=== PATIENT | male | born 1955 | race Caucasian/White ===

== ENCOUNTER 2016-07-27 04:41 | Emergency (ER) | payer OTHER, MEDICARE ==
[2016-07-27] MEDS ORDERED: ASPIRIN 81 MG TABLET, CHEWABLE PO ONE (04:55)
--- NOTE | 2016-07-27 05:08 | ER Document Report ---
ED General - General Chief Complaint: Chest Pain Stated Complaint: CHEST PAIN Time Seen by Provider: 07/27/16 05:06 Mode of Arrival: Medic Information source: Patient - HPI Notes: 60-year-old male history of tobacco and alcohol abuse and cardiac disease and CHF presents emergency department with report depression with suicidal ideation , considering taking an overdose of his medications. The patient has not taken an overdose today, but he reports a prior suicide attempt by overdose in the past. Patient reports he drinks heavily daily. No fever or chills or significant cough. Patient also reports chest pain intermittently, denies it currently but did admit to some chest pain previously. He denies any significant dyspnea or nausea. Patient lives occasionally with his son, sometimes at home alone. Patient reports chronic neck and back pain, but denies any acute injury. No focal numbness or paresthesia. Patient usually ambulates using a rolling walker. Past Medical History - General Information source: Patient - Social History Smoking Status: Current Every Day Smoker Frequency of alcohol use: Heavy Drug Abuse: None Lives with: Alone, Family Family History: Reviewed & Not Pertinent Review of Systems - Review of Systems Notes: REVIEW OF SYSTEMS: CONSTITUTIONAL : Denies fever, chills, or sweats. Denies recent illness. EENT: Denies eye, ear, throat, or mouth pain or symptoms. Denies nasal or sinus congestion or discharge. Denies throat, tongue, or mouth swelling or difficulty swallowing. CARDIOVASCULAR: Denies palpitations or racing or irregular heart beat. Denies ankle edema. Currently denies chest pain. RESPIRATORY: Denies cough, cold, or chest congestion. Denies shortness of breath, difficulty breathing. Patient reports chronic wheezing, and he takes Advair. GASTROINTESTINAL: Denies abdominal pain or distention. Denies nausea, vomiting , or diarrhea. Denies blood in vomitus, stools, or per rectum. Denies black, tarry stools. Denies constipation. GENITOURINARY: Denies difficulty urinating, painful urination, burning, frequency, blood in urine, or discharge. MUSCULOSKELETAL: Denies joint pain or swelling. Patient reports chronic neck and back pain which is unchanged. SKIN: Denies rash, lesions or sores. HEMATOLOGIC : Denies easy bruising or bleeding. LYMPHATIC: Denies swollen, enlarged glands. NEUROLOGICAL: Denies confusion or altered mental status. Denies passing out or loss of consciousness. Denies dizziness or lightheadedness. Denies headache. Denies weakness or paralysis or loss of use of either side. Denies problems with gait or speech. Denies sensory loss, numbness, or tingling. Denies seizures. PSYCHIATRIC: Denies anxiety or stress. Denies homicidal ideation. ALL OTHER SYSTEMS REVIEWED AND NEGATIVE. Dictation was performed using [employer] voice recognition software Physical Exam - Vital signs Vitals: Resp BP Pulse Ox 19 135/70 H 98 07/27/16 06:50 07/27/16 06:50 07/27/16 06:50 - Notes Notes: PHYSICAL EXAMINATION: GENERAL: Well-appearing, well-nourished and in no acute distress. Obvious smell of alcohol and stale tobacco. HEAD: Atraumatic, normocephalic. EYES: Pupils equal round and reactive to light, extraocular movements intact, sclera anicteric, conjunctiva are normal. ENT: Nares patent, oropharynx clear without exudates. Moist mucous membranes. NECK: Normal range of motion, supple without lymphadenopathy LUNGS: Breath sounds clear to auscultation bilaterally and equal. No rales or rhonchi. Wheezes appreciated anteriorly. HEART: Regular rate and rhythm without murmurs ABDOMEN: Soft, nontender, nondistended abdomen. No guarding, no rebound. No masses appreciated. Musculoskeletal: Normal range of motion, no pitting or edema. No cyanosis. Patient is able to stand without assistance. Patient has diffuse pain to his lower back and some to the neck with motion. He states this discomfort is chronic and unchanged. NEUROLOGICAL: Cranial nerves grossly intact. Normal speech, normal gait. Normal sensory, motor exams. No gross ataxia or significant tremor. PSYCH: Normal mood, Somewhat flat affect. Patient acknowledges suicidal thoughts and depressive symptoms related to his home situation and chronic pain. Patient denies any homicidal ideation. He reports no hallucinations. SKIN: Warm, Dry, normal turgor, no rashes or lesions noted. Course - Re-evaluation Re-evalutation: 07/27/16 05:49 Patient's sodium was low at 121. Patient was gently rehydrated with normal saline at 2 50 cc an hour given his history of congestive heart failure. Patient's daughter came in and mentioned that the patient has been showing some signs of dementia, although the patient was savvy enough to convince the [employer] delivery rn to car pick up driver beer to bring by to him, as the family has been preventing him from obtaining alcohol. Patient's daughter reports a history of depression and 2 prior heart attacks and a prior cardiac arrest with dementia and forgetfulness since that time. Patient's daughter has concerned that she may need to obtain a power of banking attorney over the patient's affairs given his inability to appropriately take care of himself. Social work consult was undertaken. Patient was threatening to leave, so an IVC order was obtained, as the patient needs psychiatric evaluation as well as potential admission for hyponatremia alone. Urine culture was obtained. Labs and x-ray results are pending. Care turned over to Dr. Mcdonald at 6:15 AM 07/27/16 07:18 - Vital Signs Vital signs: Temp Pulse Resp BP Pulse Ox 19 135/70 H 98 07/27/16 06:50 07/27/16 06:50 07/27/16 06:50 - Laboratory Result Diagrams: 07/27/16 05:25 07/27/16 05:25 Laboratory results interpreted by me: 07/27/16 07/27/16 07/27/16 05:25 05:25 05:25 WBC 11.3 H RBC 4.10 L Sodium 121.5 L Chloride 87 L Glucose 180 H Creatine Kinase 221 H CK-MB (CK-2) 8.88 H Urine Glucose (UA) Urine Blood Ur Leukocyte Esterase Salicylates < 1.0 L Acetaminophen < 10 L 07/27/16 05:25 WBC RBC Sodium Chloride Glucose Creatine Kinase CK-MB (CK-2) Urine Glucose (UA) 50 H Urine Blood SMALL H Ur Leukocyte Esterase LARGE H Salicylates Acetaminophen - EKG Interpretation by Nh EKG shows normal: Sinus rhythm Additional EKG results interpreted by me: 07/27/16 05:49 EKG as interpreted by il showed normal sinus rhythm heart rate of 97. There is no gross evidence for acute MA or ischemia noted. There is no old EKG available for comparison. Discharge - Discharge Clinical Impression: Hyponatremia, Alcohol abuse Chest pain Qualifiers: Chest pain type: unspecified Qualified Code(s): R07.9 - Chest pain, unspecified Depression Qualifiers: Depression Type: other depression Qualified Code(s): F32.89 - Other specified depressive episodes
[2016-07-27] MEDS ORDERED: IPRATROPIUM/ALBUTEROL 0.5-2.5 MG/3 ML AMPUL NEB ONE (05:41)
[2016-07-27 05:46] LABS: ABSOLUTE BASOPHILS # (AUTO) 0.1 10^3/uL (0.0-0.2); ABSOLUTE EOSINOPHILS # (AUTO) 0.1 10^3/uL (0.0-0.6); ABSOLUTE LYMPHOCYTES (AUTO) 3.6 10^3/uL (0.5-4.7); ABSOLUTE MONOCYTES (AUTO) 0.7 10^3/uL (0.1-1.4); ABSOLUTE NEUT (AUTO) 6.8 10^3/uL (1.7-8.2); BASOPHILS % (AUTO) 0.5 % (0-2); EOSINOPHILS % (AUTO) 0.9 % (0-6); HEMATOCRIT 38.1 % (37.9-51.0); HEMOGLOBIN 13.6 g/dL (13.5-17.0); HGB HCT DIFFERENCE 2.7; LYMPHOCYTES % (AUTO) 31.8 % (13-45); MEAN CORPUSCULAR HEMOGLOBIN 33.1 pg (27.0-33.4); MEAN CORPUSCULAR HGB CONC 35.7 g/dL (32.0-36.0); MEAN CORPUSCULAR VOLUME 93 fl (80-97); MONOCYTES % (AUTO) 6.6 % (3-13); RED CELL DISTRIBUTION WIDTH 13.6 % (11.5-14.0); SEGMENTED NEUTROPHILS % (AUTO) 60.2 % (42-78); WHITE BLOOD COUNT 11.3 10^3/uL (4.0-10.5)
--- NOTE | 2016-07-27 05:56 | RADIOLOGY REPORT (SQ) ---
EXAM DESCRIPTION: CHEST SINGLE VIEW COMPLETED DATE/TIME: 07/27/2016 5:47 am REASON FOR STUDY: CP COMPARISON: None. EXAM PARAMETERS: NUMBER OF VIEWS: One view. TECHNIQUE: Single frontal radiographic view of the chest acquired. RADIATION DOSE: NA LIMITATIONS: None. FINDINGS: LUNGS AND PLEURA: No opacities, masses or pneumothorax. No pleural effusion. MEDIASTINUM AND HILAR STRUCTURES: No masses. Contour normal. HEART AND VASCULAR STRUCTURES: Heart normal in size. Normal vasculature. BONES: No acute findings. HARDWARE: None in the chest. OTHER: No other significant finding. IMPRESSION: NO ACUTE RADIOGRAPHIC FINDING IN THE CHEST. TECHNICAL DOCUMENTATION: JOB ID: [id number]
[2016-07-27 06:00] LABS: ALANINE AMINOTRANSFERASE 38 U/L (21-72); ALBUMIN 3.8 g/dL (3.5-5.0); ALCOHOL 181 mg/dL (NONE DETECTED); ALKALINE PHOSPHATASE 112 U/L (38-126); ANION GAP 10 (5-19); ASPARTATE AMINO TRANSFERASE 28 U/L (17-59); BILIRUBIN,DIRECT 0.3 mg/dL (0.0-0.4); BILIRUBIN,TOTAL 0.6 mg/dL (0.2-1.3); BLOOD UREA NITROGEN 10 mg/dL (7-20); CALCIUM 8.5 mg/dL (8.4-10.2); CARBON DIOXIDE 25 mmol/L (22-30); CHLORIDE 87 mmol/L (98-107); CREATINE KINASE 221 U/L (55-170); GLUCOSE 180 mg/dL (75-110); POTASSIUM 3.8 mmol/L (3.6-5.0); SODIUM 121.5 mmol/L (137-145); TOTAL PROTEIN 6.4 g/dL (6.3-8.2)
[2016-07-27 06:11] LABS: CREATINE KINASE MB 8.88 ng/mL (<4.55); TROPONIN I 0.015 ng/mL
[2016-07-27 06:12] LABS: APPEARANCE,URINE CLOUDY; BILIRUBIN,URINE NEGATIVE (NEGATIVE); GLUCOSE, URINE 50 mg/dL (NEGATIVE); KETONES,URINE NEGATIVE (NEGATIVE); URINE SPECIFIC GRAVITY 1.004
[2016-07-27 06:13] LABS: BACTERIA,URINE TRACE /HPF; LEUKOCYTE ESTERASE,URINE LARGE (NEGATIVE); NITRITE,URINE NEGATIVE (NEGATIVE); PROTEIN,URINE NEGATIVE (NEGATIVE); UROBILINOGEN,URINE NEGATIVE mg/dL (<2.0)
[2016-07-27 06:16] LABS: LIPASE 102.4 U/L (23-300); MAGNESIUM 1.8 mg/dL (1.6-2.3)
[2016-07-27 06:41] LABS: URINE BARBITURATES SCREEN NEGATIVE; URINE METHADONE SCREEN NEGATIVE; URINE OPIATES LOW NEGATIVE; URINE PHENCYCLIDINE SCREEN NEGATIVE
[2016-07-27] MEDS ORDERED: NORMAL SALINE 1000 ML 1,000 ML IV ONE ×2 (06:42→07:21)
--- NOTE | 2016-07-27 09:38 | ER Document Report ---
Doctor's Note Notes: 07/27/16 09:38 Patient is sleeping at this time. The patient's alcohol level will be below the legal limit of 80 about 10:30 AM this morning. Plans are to discharge the patient at that time.
[2016-07-27 10:54] LABS: ALCOHOL 90 mg/dL (NONE DETECTED); ANION GAP 11 (5-19); BLOOD UREA NITROGEN 9 mg/dL (7-20); CALCIUM 8.5 mg/dL (8.4-10.2); CARBON DIOXIDE 25 mmol/L (22-30); CHLORIDE 89 mmol/L (98-107); GLUCOSE 199 mg/dL (75-110); POTASSIUM 3.9 mmol/L (3.6-5.0); SODIUM 125.2 mmol/L (137-145)
--- NOTE | 2016-07-27 11:01 | EKG REPORT ---
SEVERITY:- ABNORMAL ECG - SINUS RHYTHM NONSPECIFIC T ABNORMALITIES, LATERAL LEADS : Confirmed by: Tamiko Leyva MD 27-Jul-2016 11:00:42
--- NOTE | 2016-07-27 11:02 | ER Document Report ---
ED Psych Disorder / Suicide - General Chief Complaint: Chest Pain Stated Complaint: CHEST PAIN Time Seen by Provider: 07/27/16 05:06 Mode of Arrival: Medic - HPI Associated symptoms: Normal affect, Normal mood Notes: pt arrived to ED via EMS. report states that pt was drinking tonight then began making comments about SI. stating that he "did not want to do this anymore." pt states that he has had these thought all his life but has never acted upon them. When asked why he is feeling this way, pt states "my life is just terrible " but does not elaborate further. pt did not state that he had a plan. Patient disclosed that he does not think he is suicidal. When asked if he is having thoughts of suicide he states no. Patient states that last night was the first time in a long time he did think about it. Patient denies plan. He continued disclosed that he does not "know why he drank yesterday." When asked often he drinks patient states "normally I drink a lot more." Patient then stated that he had been sober a long time however was unable to provide the length of time of sobriety. He continued disclosed that "I do not have much choice" in sobriety now. He continued disclosed that he does not need resources because "I know how to quit." Patient disclosed that alcohol does not stay in his system long and he is completely sober now. Patient states he has difficulty opening up to therapists, he has tried in the past but just "clams up." Clinician spoke with [place] Barger from [facility] crisis line; [phone]. He disclosed the patient called the crisis line last night disclosed that he was having nightmares of [place] and hearing shooting. He continued disclosed that he "wanted to " however never identified a plan. [facility] however [facility] [place]. Patient is alert and orientated to person place time and circumstance. Mood is euthymic with congruent affect. Patient denies current suicidal ideation endorses having thoughts last night no plan. Patient denies homicidal ideation. patient denies auditory and visual hallucinations. patient is not demonstrating and behaviours congruent with responding to internal stimuli. No delusions are noted. Thought process are organized and linear. Conversational speech is within normal rate, tone and prosody. Eye contact is well maintained. Intellectual abilities are within average range. Attention and concentration are good. Insight, judgment and impulse control is fair. 291.9 (F10.99) Unspecified Alcohol related Disorder R/O PTSD Impression\\plan: Patient is recommended for rescind of IVC and considered psychiatrically clear for discharge. Patient is no longer under the influence of alcohol. Patient denies current suicidal ideation. Patient identifies suicidal ideation last night with no plan. Patient has no outpatient mental health provider set up, patient [facility] to [facility] to start local care. Dr. Tanner was consulted on the care and management of this patient; attending physician is in agreement with recommendations and disposition. Past Medical History - General Information source: Patient - Social History Smoking Status: Current Every Day Smoker Frequency of alcohol use: Heavy Drug Abuse: None Lives with: Alone, Family Family History: Reviewed & Not Pertinent Physical Exam - Vital signs Vitals: Resp BP Pulse Ox 19 135/70 H 98 07/27/16 06:50 07/27/16 06:50 07/27/16 06:50 Course - Vital Signs Vital signs: Temp Pulse Resp BP Pulse Ox 15 102/67 97 07/27/16 08:01 07/27/16 08:00 07/27/16 07:01 - Laboratory Result Diagrams: 07/27/16 05:25 07/27/16 05:25 Laboratory results interpreted by me: 07/27/16 07/27/16 07/27/16 05:25 05:25 05:25 WBC 11.3 H RBC 4.10 L Sodium 121.5 L Chloride 87 L Glucose 180 H Creatine Kinase 221 H CK-MB (CK-2) 8.88 H Urine Glucose (UA) Urine Blood Ur Leukocyte Esterase Salicylates < 1.0 L Acetaminophen < 10 L 07/27/16 05:25 WBC RBC Sodium Chloride Glucose Creatine Kinase CK-MB (CK-2) Urine Glucose (UA) 50 H Urine Blood SMALL H Ur Leukocyte Esterase LARGE H Salicylates Acetaminophen Discharge - Discharge Clinical Impression: Hyponatremia, Alcohol abuse Chest pain Qualifiers: Chest pain type: unspecified Qualified Code(s): R07.9 - Chest pain, unspecified Depression Qualifiers: Depression Type: other depression Qualified Code(s): F32.89 - Other specified depressive episodes Condition: Stable Disposition: HOME, SELF-CARE Additional Instructions: DEPRESSION: Your evaluation reveals that you have mental depression. While symptoms may be vague, they often include disturbance of sleep, fatigue, loss of appetite , and general loss of interest in life. While depression may be a side effect of drugs, or a reaction to a major change in your life, many cases have no known cause. If depression is acute, and related to a major loss in your life, you can expect it to clear completely with time. If you have been depressed a long time , are prone to repeated bouts of depression or low mood, or have been thinking of suicide, get help. Depression can be treated with anti-depressant medication and counselling. Long-term depression will often take a few weeks to clear, even with appropriate medication. Follow-up care is important. SUICIDAL IDEATION: Suicidal ideation is a common medical term for thoughts about suicide, which may be as detailed as a formulated plan, without the suicidal act itself. Although most people who undergo suicidal ideation do not commit suicide, some go on to make suicide attempts. The range of suicidal ideation varies greatly from fleeting to detailed planning, role playing, and unsuccessful attempts. While thoughts about suicide are common, most people do not carry out serious actions to commit suicide. Based upon your evaluation and discussion with you, we do not believe you are currently at risk to act upon your thoughts of suicide. You have agreed to return to the Emergency Department, at any time , if you feel inclined to act upon your suicidal thoughts. FOLLOW-UP CARE: Please follow up with the [facility] upon discharge to fill out transfer forms to start local care. If you experience worsening or a significant change in your symptoms, notify the physician immediately or return to the Emergency Department at any time for re-evaluation. Referrals: [facility] [Provider Group] - 07/27/16
[2016-07-27 14:35] VITALS: BP 99/60
== END 2016-07-27 13:40 | disposition home or self-care (01) ==
LOC: ER 04:41
DX: E87.1 Hypo-osmolality and hyponatremia (principal); F10.10 Alcohol abuse, uncomplicated; R07.9 Chest pain, unspecified; F32.89 Other specified depressive episodes; F17.200 Nicotine dependence, unspecified, uncomplicated
CPT/HCPCS: 93005; 94640; 99285; 96360; 36415; 87086; 82553; 80307 ×4; 82550; 83690; 83735; 85025; 80048; 80053; 81001; 84484; 83880; 71010; 93010; J7030; J7620

== ENCOUNTER 2016-09-23 22:30 | Emergency (ER) | payer OTHER, MEDICARE ==
[2016-09-23 23:29] LABS: APPEARANCE,URINE CLOUDY; BILIRUBIN,URINE NEGATIVE (NEGATIVE); GLUCOSE, URINE NEGATIVE (NEGATIVE); KETONES,URINE TRACE mg/dL (NEGATIVE); LEUKOCYTE ESTERASE,URINE LARGE (NEGATIVE); NITRITE,URINE NEGATIVE (NEGATIVE); PROTEIN,URINE 30 mg/dL (NEGATIVE); URINE SPECIFIC GRAVITY 1.002; UROBILINOGEN,URINE NEGATIVE mg/dL (<2.0)
[2016-09-23 23:38] LABS: URINE BARBITURATES SCREEN NEGATIVE; URINE METHADONE SCREEN NEGATIVE; URINE OPIATES LOW NEGATIVE; URINE PHENCYCLIDINE SCREEN NEGATIVE
[2016-09-24 00:49] LABS: ABSOLUTE BASOPHILS # (AUTO) 0.1 10^3/uL (0.0-0.2); ABSOLUTE EOSINOPHILS # (AUTO) 0.1 10^3/uL (0.0-0.6); ABSOLUTE LYMPHOCYTES (AUTO) 4.6 10^3/uL (0.5-4.7); ABSOLUTE MONOCYTES (AUTO) 0.6 10^3/uL (0.1-1.4); BASOPHILS % (AUTO) 0.5 % (0-2); EOSINOPHILS % (AUTO) 0.7 % (0-6); HEMOGLOBIN 15.2 g/dL (13.5-17.0); HGB HCT DIFFERENCE 2.6; LYMPHOCYTES % (AUTO) 34.3 % (13-45); MEAN CORPUSCULAR HEMOGLOBIN 33.7 pg (27.0-33.4); MEAN CORPUSCULAR HGB CONC 35.3 g/dL (32.0-36.0); MEAN CORPUSCULAR VOLUME 95 fl (80-97); MONOCYTES % (AUTO) 4.8 % (3-13); RED BLOOD COUNT 4.51 10^6/uL (4.35-5.55); RED CELL DISTRIBUTION WIDTH 13.5 % (11.5-14.0); SEGMENTED NEUTROPHILS % (AUTO) 59.7 % (42-78); WHITE BLOOD COUNT 13.4 10^3/uL (4.0-10.5)
[2016-09-24 01:05] LABS: ALANINE AMINOTRANSFERASE 34 U/L (21-72); ALBUMIN 4.6 g/dL (3.5-5.0); ALCOHOL 199 mg/dL (NONE DETECTED); ALKALINE PHOSPHATASE 145 U/L (38-126); ANION GAP 17 (5-19); ASPARTATE AMINO TRANSFERASE 32 U/L (17-59); BILIRUBIN,DIRECT 0.4 mg/dL (0.0-0.4); BILIRUBIN,TOTAL 0.7 mg/dL (0.2-1.3); BLOOD UREA NITROGEN 6 mg/dL (7-20); CARBON DIOXIDE 17 mmol/L (22-30); CHLORIDE 90 mmol/L (98-107); CREATININE RESULT 0.57 mg/dL (0.52-1.25); GLUCOSE 119 mg/dL (75-110); POTASSIUM 4.7 mmol/L (3.6-5.0); SODIUM 123.7 mmol/L (137-145); TOTAL PROTEIN 7.8 g/dL (6.3-8.2)
--- NOTE | 2016-09-24 01:28 | ER Document Report ---
ED General - General Chief Complaint: Psych Problem Stated Complaint: SUICIDAL IDEATIONS Time Seen by Provider: 09/24/16 01:26 Notes: Patient is a 60-year-old male with a past history of alcoholism, depression, congestive heart failure who apparently refuses to follow for any medical care who presents with his son and daughter after police were dispatched to his home after he apparently [facility]. Patient admits to drinking heavily tonight and states that this often triggers thoughts of wanting to harm himself. At time of my assessment, patient states repeatedly "I just drank too much, that was stupid, I could never hurt myself". He is repeatedly asking to leave and go smoke a cigarette. His children at the bedside states that the patient has never made an attempt to harm himself and are clear that he does not have access to guns or an alternative way to kill himself. They state that he should seek help for detox but are not concerned that he is acutely suicidal. Patient denies any acute medical concerns. TRAVEL OUTSIDE OF THE [place] IN LAST 30 DAYS: No Past Medical History - General Information source: Patient, Relative - Social History Smoking Status: Current Every Day Smoker Frequency of alcohol use: Heavy Drug Abuse: None Lives with: Family Family History: Reviewed & Not Pertinent Patient has suicidal ideation: Yes Patient has homicidal ideation: No Renal/ Medical History: Denies: Hx Peritoneal Dialysis Review of Systems - Review of Systems Notes: Constitutional: Negative for fever. HENT: Negative for sore throat. Eyes: Negative for visual changes. Cardiovascular: Negative for chest pain. Respiratory: Negative for shortness of breath. Gastrointestinal: Negative for abdominal pain, vomiting or diarrhea. Genitourinary: Negative for dysuria. Musculoskeletal: Negative for back pain. Skin: Negative for rash. Neurological: Negative for headaches, weakness or numbness. 10 point ROS negative except as marked above and in HPI. Physical Exam - Vital signs Vitals: Temp Pulse Resp BP Pulse Ox 97.5 F 101 H 16 128/70 H 96 09/23/16 23:45 09/23/16 23:45 09/23/16 23:45 09/23/16 23:45 09/23/16 23:45 Interpretation: Normal Notes: PHYSICAL EXAMINATION: GENERAL: Well-appearing, well-nourished and in no acute distress. HEAD: Atraumatic, normocephalic. EYES: Pupils equal round and reactive to light, extraocular movements intact, sclera anicteric, conjunctiva are normal. ENT: nares patent, oropharynx clear without exudates. Moist mucous membranes. NECK: Normal range of motion, supple without lymphadenopathy LUNGS: Breath sounds clear to auscultation bilaterally and equal. No wheezes rales or rhonchi. HEART: Regular rate and rhythm without murmurs ABDOMEN: Soft, nontender, normoactive bowel sounds. No guarding, no rebound. No masses appreciated. EXTREMITIES: Normal range of motion, no pitting or edema. No cyanosis. Discoloration of the bilateral lower extremity is consistent with venous stasis. NEUROLOGICAL: No focal neurological deficits. Moves all extremities spontaneously and on command. PSYCH: Normal mood, normal affect. SKIN: Warm, Dry, normal turgor, no rashes or lesions noted. Course - Re-evaluation Re-evalutation: 09/24/16 01:27 Patient presents stating that he made a mistake, [facility] that he wanted to hurt himself but he denies this time. He is here with his son and daughter who have not heard anything about today's conversation and states that he frequently does this where he called the [facility] crisis [facility], combative, drunk agitated and makes threats on the phone that resulted in police being sent to the home. At this time, patient is adamantly denying suicidal ideation repeatedly stating "I could never do it I just drank too much and that was stupid". He does not have access to firearms. His son will be staying with him tonight. I did offer to the patient stay in the emergency department and be evaluated by psychiatry in the morning as well as consideration of resources for rehabilitation. The patient I felt this was the safest option. However, based on what patient has told me here as well as with his children say he does not meet involuntary commitment criteria and I cannot force the patient to stay. Patient has elected to go home and states he will try to follow-up as an outpatient. - Vital Signs Vital signs: Temp Pulse Resp BP Pulse Ox 97.7 F 94 20 118/78 97 09/24/16 01:32 09/24/16 01:32 09/24/16 01:32 09/24/16 01:32 09/24/16 01:32 - Laboratory Result Diagrams: 09/24/16 00:36 09/24/16 00:36 Laboratory results interpreted by me: 09/23/16 09/24/16 09/24/16 22:45 00:35 00:36 WBC 13.4 H MCH 33.7 H Sodium Chloride Carbon Dioxide BUN Glucose Alkaline Phosphatase Urine Protein 30 H 30 H Urine Ketones TRACE H TRACE H Urine Blood MODERATE H MODERATE H Ur Leukocyte Esterase LARGE H LARGE H Salicylates Acetaminophen 09/24/16 00:36 WBC MCH Sodium 123.7 L Chloride 90 L Carbon Dioxide 17 L BUN 6 L Glucose 119 H Alkaline Phosphatase 145 H Urine Protein Urine Ketones Urine Blood Ur Leukocyte Esterase Salicylates < 1.0 L Acetaminophen < 10 L Discharge - Discharge Clinical Impression: Passive suicidal ideations Alcohol dependency Qualifiers: Substance use status: unspecified alcohol-induced disorder Qualified Code(s): F10.29 - Alcohol dependence with unspecified alcohol-induced disorder Condition: Good Disposition: HOME, SELF-CARE Additional Instructions: Please return if you have thoughts of wanting to hurt yourself, hurt others, or have any other symptoms that are concerning to you.
[2016-09-24 02:33] VITALS: BP 118/78
[2016-09-24 02:55] LABS: APPEARANCE,URINE SLIGHTLY-CLOUDY; BILIRUBIN,URINE NEGATIVE (NEGATIVE); GLUCOSE, URINE NEGATIVE (NEGATIVE); KETONES,URINE TRACE mg/dL (NEGATIVE); LEUKOCYTE ESTERASE,URINE LARGE (NEGATIVE); NITRITE,URINE NEGATIVE (NEGATIVE); PROTEIN,URINE 30 mg/dL (NEGATIVE); URINE SPECIFIC GRAVITY 1.005; UROBILINOGEN,URINE NEGATIVE mg/dL (<2.0)
[2016-09-24 04:27] LABS: URINE BARBITURATES SCREEN NEGATIVE; URINE METHADONE SCREEN NEGATIVE; URINE OPIATES LOW NEGATIVE; URINE PHENCYCLIDINE SCREEN NEGATIVE
== END 2016-09-24 01:32 | disposition home or self-care (01) ==
LOC: ER 22:30
DX: R45.851 Suicidal ideations (principal); F10.29 Alcohol dependence with unspecified alcohol-induced disorder; F17.210 Nicotine dependence, cigarettes, uncomplicated
CPT/HCPCS: 36415; 80053; 80307; 81001; 85025; 99284

== ENCOUNTER 2016-10-31 23:56 | Emergency (ER) | payer OTHER, MEDICARE ==
[2016-10-31] MEDS ORDERED: ASPIRIN 81 MG TABLET, CHEWABLE PO ONE (23:57)
[2016-11-01 00:29] LABS: HEMATOCRIT 40.9 % (37.9-51.0); HEMOGLOBIN 14.2 g/dL (13.5-17.0); HGB HCT DIFFERENCE 1.7; MEAN CORPUSCULAR HEMOGLOBIN 33.3 pg (27.0-33.4); MEAN CORPUSCULAR HGB CONC 34.6 g/dL (32.0-36.0); MEAN CORPUSCULAR VOLUME 96 fl (80-97); RED BLOOD COUNT 4.26 10^6/uL (4.35-5.55); RED CELL DISTRIBUTION WIDTH 13.8 % (11.5-14.0); WHITE BLOOD COUNT 24.4 10^3/uL (4.0-10.5)
[2016-11-01 00:37] LABS: ALANINE AMINOTRANSFERASE 29 U/L (21-72); ALBUMIN 4.3 g/dL (3.5-5.0); ALKALINE PHOSPHATASE 133 U/L (38-126); ANION GAP 13 (5-19); ASPARTATE AMINO TRANSFERASE 29 U/L (17-59); BILIRUBIN,DIRECT 0.5 mg/dL (0.0-0.4); BLOOD UREA NITROGEN 9 mg/dL (7-20); CALCIUM 9.4 mg/dL (8.4-10.2); CARBON DIOXIDE 29 mmol/L (22-30); CHLORIDE 92 mmol/L (98-107); CREATINE KINASE 115 U/L (55-170); CREATININE RESULT 0.75 mg/dL (0.52-1.25); GLUCOSE 191 mg/dL (75-110); POTASSIUM 3.8 mmol/L (3.6-5.0); SODIUM 133.5 mmol/L (137-145); TOTAL PROTEIN 6.9 g/dL (6.3-8.2)
[2016-11-01 00:47] LABS: BAND NEUTROPHILS % (MANUAL) 1 % (3-5); BASOPHILS % (MANUAL) 0 % (0-2); EOSINOPHILS % (MANUAL) 0 % (0-6); LYMPHOCYTES % (MANUAL) 3 % (13-45); TOTAL CELLS COUNTED 100; TOXIC GRANULATION SLIGHT; TOXIC VACUOLATION PRESENT
[2016-11-01 00:48] LABS: RBC MORPHOLOGY COMMENT NORMO-CYTIC/CHROMIC
[2016-11-01 00:53] LABS: CREATINE KINASE MB 3.29 ng/mL (<4.55)
--- NOTE | 2016-11-01 00:55 | RADIOLOGY REPORT (SQ) ---
EXAM DESCRIPTION: CHEST SINGLE VIEW COMPLETED DATE/TIME: 11/01/2016 12:22 am REASON FOR STUDY: chest pain COMPARISON: 07/27/2016. EXAM PARAMETERS: NUMBER OF VIEWS: One view. TECHNIQUE: Single frontal radiographic view of the chest acquired. RADIATION DOSE: NA LIMITATIONS: None. FINDINGS: LUNGS AND PLEURA: No opacities, masses or pneumothorax. No pleural effusion. Prominent in terstitium. MEDIASTINUM AND HILAR STRUCTURES: No masses. Contour normal. HEART AND VASCULAR STRUCTURES: Heart normal in size. Atherosclerosis. BONES: No acute findings. HARDWARE: None in the chest. OTHER: No other significant finding. IMPRESSION: No acute cardiopulmonary findings. TECHNICAL DOCUMENTATION: JOB ID: [id number]
[2016-11-01 00:58] LABS: APPEARANCE,URINE TURBID; BILIRUBIN,URINE NEGATIVE (NEGATIVE); GLUCOSE, URINE 50 mg/dL (NEGATIVE); KETONES,URINE TRACE mg/dL (NEGATIVE); LEUKOCYTE ESTERASE,URINE LARGE (NEGATIVE); NITRITE,URINE NEGATIVE (NEGATIVE); PROTEIN,URINE 100 mg/dL (NEGATIVE); URINE SPECIFIC GRAVITY 1.008
[2016-11-01 00:59] LABS: TROPONIN I 0.056 ng/mL
[2016-11-01] MEDS ORDERED: CEFTRIAXONE 1 GM/D5W RTU 1 GM/50 ML RTUPB IV ONE (01:34)
[2016-11-01] MEDS ORDERED: NORMAL SALINE 1000 ML 1,000 ML IV ONE ×4 (01:34→07:37)
[2016-11-01] MEDS ORDERED: KETOROLAC TROMETHAMINE INJ/PF 30 MG/1 ML SDV IV ONE (01:36)
--- NOTE | 2016-11-01 01:39 | ER Document Report ---
ED Cardiac - General Chief Complaint: Chest Pain Stated Complaint: CHEST PAIN Time Seen by Provider: 11/01/16 01:03 Notes: Patient is a 60-year-old male with past medical history of type 2 diabetes with insulin dependence, alcoholism, known coronary artery disease history of stent approximately 1 year ago who presents with multiple complaints. His primary concern is dysuria with associated hematuria and bilateral flank pain. Patient also reports that he is felt generally unwell for at least the past several weeks since he developed the symptoms. He does have history of pyelonephritis in the past is required hospitalization. He has not seen his primary care doctor regarding this concern. He does note that the pain in his bilateral flanks as a dull, constant aching pain. Worsened by touching area. Nothing improves the pain. He does also note that he had left-sided chest pain today. Describes this as a pressure that sat on the left chest without any radiation. Denies any associated diaphoresis or vomiting but did note associated shortness of breath. He did take nitroglycerin at home with moderate improvement of the pain. TRAVEL OUTSIDE OF THE [place] IN LAST 30 DAYS: No - Related Data Allergies/Adverse Reactions: walnuts Allergy (Uncoded 11/01/16 01:37) Past Medical History - General Information source: Patient - Social History Smoking Status: Current Every Day Smoker Frequency of alcohol use: Heavy - States he is currently sober Drug Abuse: None Lives with: Family Family History: Reviewed & Not Pertinent - Past Medical History Cardiac Medical History: Reports: Hx Congestive Heart Failure, Hx Heart Attack Pulmonary Medical History: Reports: Hx COPD Endocrine Medical History: Reports: Hx Diabetes Mellitus Type 1, Hx Diabetes Mellitus Type 2 - insulin dependent Renal/ Medical History: Denies: Hx Peritoneal Dialysis GI Medical History: Reports: Hx Gastroesophageal Reflux Disease Review of Systems - Review of Systems Notes: Constitutional: Negative for fever. HENT: Negative for sore throat. Eyes: Negative for visual changes. Cardiovascular: Positive for chest pain. Respiratory: Negative for shortness of breath. Gastrointestinal: Negative for abdominal pain, vomiting or diarrhea. Genitourinary: Positive for dysuria. Musculoskeletal: Negative for back pain. Skin: Negative for rash. Neurological: Negative for headaches, weakness or numbness. 10 point ROS negative except as marked above and in HPI. Physical Exam - Vital signs Vitals: Resp Pulse Ox 18 93 11/01/16 00:14 11/01/16 00:14 Interpretation: Tachycardic, Tachypneic Notes: PHYSICAL EXAMINATION: GENERAL: Appears older than stated age, somewhat disheveled but in no acute distress HEAD: Atraumatic, normocephalic. EYES: Pupils equal round and reactive to light, extraocular movements intact, sclera anicteric, conjunctiva are normal. ENT: nares patent, oropharynx clear without exudates. Moderately dry mucous membranes. NECK: Normal range of motion, supple without lymphadenopathy LUNGS: Mild tachypnea. Scattered expiratory wheezing in all lung [place]. HEART: Regular tachycardia without murmurs ABDOMEN: Soft, nontender, normoactive bowel sounds. No guarding, no rebound. No masses appreciated. EXTREMITIES: Normal range of motion, no pitting or edema. No cyanosis. NEUROLOGICAL: No focal neurological deficits. Moves all extremities spontaneously and on command. PSYCH: Normal mood, normal affect. SKIN: Warm, Dry, normal turgor, no rashes or lesions noted. Course - Re-evaluation Re-evalutation: 11/01/16 01:37 Patient presents with chest pain that is been present for the past 12 hours, over the left side of the chest with associated shortness of breath. Patient does also report feeling generally unwell. Initial assessment shows that he remains tachycardic initial heart rate 127. He is neither hypoxic nor tachypneic. Lung exam shows scattered expiratory wheezing. Abdominal exam benign. He does have bilateral CVA tenderness. He does complain of severe dysuria. Laboratories are consistent with an acute pyelonephritis with associated sepsis given his vitals, leukocytosis with a neutrophilic predominance. Urine and blood cultures have been obtained. IV ceftriaxone and fluids have been initiated. His clinical history is not consistent with acute pulmonary embolus and I suspect that his tachycardia is actually due to his sepsis in the setting of pyelonephritis. His initial troponin is mildly elevated at the indeterminate range of 0.057. His EKG is without any ischemic changes. Will obtain a second troponin and continue to monitor closely. Will continue to monitor closely given his vital signs and overall appearance. 11/01/16 03:08 Patient's troponin has elevated to 0.154, above our AMI cut off. He remains chest pain-free. Will contact [facility] for transfer. 11/01/16 03:13 [facility] does not have any beds. [facility] has been contacted for transfer 11/01/16 03:31 I discussed this case with and new him in a regional who was accepted for transfer. We are awaiting bed placement. Patient remains tachycardic although improving significantly down to 112 at this time. He remains 96% on room air, blood pressure 106 on 65. Lactate has been sent. Repeat troponin is scheduled for 0500. A repeat bolus at 1 L will be initiated. - Vital Signs Vital signs: Temp Pulse Resp BP Pulse Ox 20 106/65 96 11/01/16 03:31 11/01/16 03:31 11/01/16 03:31 - Laboratory Result Diagrams: 11/01/16 00:10 11/01/16 00:10 Laboratory results interpreted by me: 11/01/16 11/01/16 11/01/16 00:10 00:10 00:10 WBC 24.4 H RBC 4.26 L Seg Neuts % (Manual) 89 H Band Neutrophils % 1 L Lymphocytes % (Manual) 3 L Abs Neuts (Manual) 22.0 H Sodium 133.5 L Chloride 92 L Glucose 191 H Lactic Acid 2.8 H Direct Bilirubin 0.5 H Alkaline Phosphatase 133 H Urine Protein Urine Glucose (UA) Urine Ketones Urine Blood Urine Urobilinogen Ur Leukocyte Esterase 11/01/16 00:23 WBC RBC Seg Neuts % (Manual) Band Neutrophils % Lymphocytes % (Manual) Abs Neuts (Manual) Sodium Chloride Glucose Lactic Acid Direct Bilirubin Alkaline Phosphatase Urine Protein 100 H Urine Glucose (UA) 50 H Urine Ketones TRACE H Urine Blood SMALL H Urine Urobilinogen 2.0 H Ur Leukocyte Esterase LARGE H - Diagnostic Test Radiology reviewed: Image reviewed, Reports reviewed Radiology results interpreted by me: 11/01/16 02:41 Chest x-ray: No acute infiltrate or pneumothorax - EKG Interpretation by Me Additional EKG results interpreted by me: 11/01/16 02:41 Sinus tachycardia. Rate 134. No ST elevation or depression. QTC is 454. Critical Care Note - Critical Care Note Total time excluding time spent on procedures (mins): 38 Comments: Critical care time spent obtaining history from patient or surrogate, discussions with consultants, development of treatment plan with patient or surrogate, evaluation of patient's response to treatment, examination of patient , ordering and performing treatments and interventions, ordering and review of laboratory studies, re-evaluation of patient's condition, ordering and review of radiographic studies and review of old charts Discharge - Discharge Clinical Impression: NSTEMI (non-ST elevated myocardial infarction), Pyelonephritis, Tachycardia Sepsis Qualifiers: Sepsis type: sepsis due to unspecified organism Qualified Code(s): A41.9 - Sepsis, unspecified organism Condition: Fair Disposition: [facility]
[2016-11-01] MEDS ORDERED: LORAZEPAM 1 MG TABLET PO ONE (02:10)
[2016-11-01] MEDS ORDERED: IPRATROPIUM/ALBUTEROL 0.5-2.5 MG/3 ML AMPUL NEB ONE ×4 (02:33→06:34)
[2016-11-01] MEDS: MAGNESIUM SULFATE/D5W 1 GM/100 ML RTUPB IV SCH (06:30)
[2016-11-01] MEDS ORDERED: DIAZEPAM INJ 10 MG/2 ML DISP.SYRIN IV ONE (06:31)
[2016-11-01] MEDS ORDERED: MAGNESIUM SULFATE/D5W 1 GM/100 ML RTUPB IV ONE (06:34)
[2016-11-01] MEDS ORDERED: LORAZEPAM INJ 2 MG/1 ML VIAL ONE (06:37)
[2016-11-01] MEDS ORDERED: ETOMIDATE INJ/PF 20 MG/10 ML SDV IV ONE ×3 (06:51→07:04)
[2016-11-01] MEDS ORDERED: PROPOFOL 100 ML IV ONE (06:52)
[2016-11-01] MEDS ORDERED: PROPOFOL INJ 200 MG/20 ML VIAL IV ONE (07:03)
[2016-11-01] MEDS ORDERED: PROPOFOL 100 ML IV PRN (07:04)
[2016-11-01] MEDS ORDERED: SUCCINYLCHOLINE CHLORIDE INJ 200 MG/10 ML VIAL IV ONE (07:05)
[2016-11-01] MEDS ORDERED: FENTANYL CITRATE INJ/PF 100 MCG/2 ML AMPUL IV ONE (07:28)
[2016-11-01] MEDS ORDERED: MIDAZOLAM HCL 100 ML IV PRN (07:28)
[2016-11-01] MEDS ORDERED: ACETAMINOPHEN 650 MG SUPP.RECT PR ONE (07:29)
--- NOTE | 2016-11-01 07:41 | RADIOLOGY REPORT (SQ) ---
EXAM DESCRIPTION: CHEST SINGLE VIEW COMPLETED DATE/TIME: 11/01/2016 7:22 am REASON FOR STUDY: post intubation COMPARISON: 11/01/2016. EXAM PARAMETERS: NUMBER OF VIEWS: One view. TECHNIQUE: Single frontal radiographic view of the chest acquired. RADIATION DOSE: NA LIMITATIONS: None. FINDINGS: LUNGS AND PLEURA: Mild -moderate mixed interstitial and airspace opacity MEDIASTINUM AND HILAR STRUCTURES: No masses. Contour normal. HEART AND VASCULAR STRUCTURES: Heart normal in size. Normal vasculature. BONES: No acute findings. HARDWARE: Adequate appearing endotracheal tube tip, 5 cm from the la. NG tube tip and proximal p ort appear adequate overlying the left upper abdominal quadrant -stomach. OTHER: Mild dilation and stacking of jejunal bowel measures up to 4.2 cm in diameter. IMPRESSION: 1. Interval worsening includes a mild-moderate pulmonary edema pattern. 2. Mild dilat ion and stacking of jejunal small bowel may indicate ileus or early/ partial obstruction. 3. Endotr acheal and NG tube. TECHNICAL DOCUMENTATION: JOB ID: [id number]
[2016-11-01 08:11] VITALS: BP 115/79
[2016-11-01] MEDS ORDERED: SUCCINYLCHOLINE CHLORIDE INJ 200 MG/10 ML VIAL ONE (10:11)
--- NOTE | 2016-11-01 10:15 | EKG REPORT ---
SEVERITY:- BORDERLINE ECG - SINUS TACHYCARDIA PROBABLE LEFT ATRIAL ABNORMALITY : Confirmed by: Al Xiong 01-Nov-2016 10:15:10
--- NOTE | 2016-11-01 10:15 | EKG REPORT ---
SEVERITY:- ABNORMAL ECG - SINUS TACHYCARDIA [Now Present] PROBABLE LEFT ATRIAL ABNORMALITY [Insig. Chg.] NONSPECIFIC T ABNORMALITIES, LATERAL LEADS [Less Prom.] SIGNIFICANT RHYTHM CHANGES [Now Absent] SINUS RHYTHM : Confirmed by: Al Xiong 01-Nov-2016 10:15:03
== END 2016-11-01 08:35 | disposition short-term general hospital (02) ==
LOC: ER 23:56
PROC: 0BH17EZ Insertion of Endotracheal Airway into Trachea, Via Natural or Artificial Opening (ICD-10-PCS; principal; 2016-10-31)
DX: I21.4 Non-ST elevation (NSTEMI) myocardial infarction (principal); A41.9 Sepsis, unspecified organism; R07.9 Chest pain, unspecified; E11.9 Type 2 diabetes mellitus without complications; Z79.4 Long term (current) use of insulin; I25.10 Atherosclerotic heart disease of native coronary artery without angina pectoris; F10.20 Alcohol dependence, uncomplicated; R30.0 Dysuria; R31.9 Hematuria, unspecified; F17.200 Nicotine dependence, unspecified, uncomplicated
CPT/HCPCS: 93005 ×2; 94640 ×2; 99291; 96361; 51701; 96375; 96365; 96367; 36415; 87086; 82553; 82550; 85025; 87088; 80053; 81001; 84484; 87186; 83605; 83880; 71010 ×2; 93010 ×2; 94660; 31500; J3010; J1885; J2060; J3475; J0330; J2250; J7030; J0696; J7620; 94002

== ENCOUNTER 2017-02-02 18:02 | Inpatient (IN) | payer MEDICARE, MEDICAID ==
[~2017-02-02 18:02] MED LIST: NORMAL SALINE 1000 ML 1,000 ML with POTASSIUM CHLORIDE 20 MEQ, MAGNESIUM SULFATE 8 MEQ,... IV SCH
[2017-02-02] MEDS ORDERED: CEFTRIAXONE 1 GM/D5W RTU 1 GM/50 ML RTUPB IV ONE (18:06)
[2017-02-02] MEDS: NORMAL SALINE 1000 ML 1,000 ML IV PRN ×3 (18:24→21:56)
--- NOTE | 2017-02-02 18:28 | ER Document Report ---
ED General - General Stated Complaint: CHEST PAIN Time Seen by Provider: 02/02/17 18:05 Mode of Arrival: Medic Information source: Patient, Emergency Med Personnel Notes: 61-year-old male smoker presents with complaints of chest pain shortness of breath productive cough fever of a few day duration. Pt noted chest tightness, admits to being homeless. pt given nitro aspirin prior to arrival and had complete relief . TRAVEL OUTSIDE OF THE [place] IN LAST 30 DAYS: No - HPI Onset: Last week Onset/Duration: Persistent Quality of pain: Achy Severity: Mild Pain Level: 1 Associated symptoms: Chest pain, Productive cough, Fever, Shortness of breath Exacerbated by: Denies Relieved by: Denies Similar symptoms previously: No Recently seen / treated by doctor: No - Related Data Allergies/Adverse Reactions: walnuts Allergy (Uncoded 11/01/16 01:37) Home Medications: Current Home Medications Aspirin [Adult Aspirin Regimen] 81 mg PO DAILY 02/02/17 [History] Furosemide 20 mg PO BID 02/02/17 [History] Furosemide [Lasix] 40 mg PO DAILY 02/02/17 [History] Gabapentin 300 mg PO TID 02/02/17 [History] Omeprazole 20 mg PO DAILY 02/02/17 [History] Tamsulosin HCl 0.4 mg PO DAILY 02/02/17 [History] Past Medical History - Social History Smoking Status: Current Every Day Smoker Cigarette use (# per day): Yes Chew tobacco use (# tins/day): No Smoking Education Provided: Yes - Patient counselled regarding cessation for 4 minutes Frequency of alcohol use: Occasional Lives with: Homeless Family History: Reviewed & Not Pertinent Patient has suicidal ideation: No Patient has homicidal ideation: No - Past Medical History Cardiac Medical History: Reports: Hx Congestive Heart Failure, Hx Heart Attack Pulmonary Medical History: Reports: Hx COPD Endocrine Medical History: Reports: Hx Diabetes Mellitus Type 1, Hx Diabetes Mellitus Type 2 - insulin dependent Renal/ Medical History: Denies: Hx Peritoneal Dialysis GI Medical History: Reports: Hx Gastroesophageal Reflux Disease Review of Systems - Review of Systems Notes: REVIEW OF SYSTEMS: CONSTITUTIONAL : Admits fever EENT: Denies eye, ear, throat, or mouth pain or symptoms. Denies nasal or sinus congestion or discharge. Denies throat, tongue, or mouth swelling or difficulty swallowing. CARDIOVASCULAR: Admits to chest pain RESPIRATORY: Admits shortness of breath productive cough GASTROINTESTINAL: Denies abdominal pain or distention. Denies nausea, vomiting , or diarrhea. Denies blood in vomitus, stools, or per rectum. Denies black, tarry stools. Denies constipation. GENITOURINARY: Denies difficulty urinating, painful urination, burning, frequency, blood in urine, or discharge. MUSCULOSKELETAL: Denies back or neck pain or stiffness. Denies joint pain or swelling. SKIN: Denies rash, lesions or sores. HEMATOLOGIC : Denies easy bruising or bleeding. LYMPHATIC: Denies swollen, enlarged glands. NEUROLOGICAL: Denies confusion or altered mental status. Denies passing out or loss of consciousness. Denies dizziness or lightheadedness. Denies headache. Denies weakness or paralysis or loss of use of either side. Denies problems with gait or speech. Denies sensory loss, numbness, or tingling. Denies seizures. PSYCHIATRIC: Denies anxiety or stress. Denies depression, suicidal ideation, or homicidal ideation. ALL OTHER SYSTEMS REVIEWED AND NEGATIVE. Dictation was performed using [employer] voice recognition software PHYSICAL EXAMINATION: GENERAL: Chronically ill-appearing male HEAD: Atraumatic, normocephalic. EYES: Pupils equal round and reactive to light, extraocular movements intact, sclera anicteric, conjunctiva are normal. ENT: Nares patent, oropharynx clear without exudates. Moist mucous membranes. NECK: Normal range of motion, supple without lymphadenopathy LUNGS: Tachypneic with coarse breath sounds all throughout HEART: Tachycardic ABDOMEN: Soft, nontender, nondistended abdomen. No guarding, no rebound. No masses appreciated. Musculoskeletal: Normal range of motion, no pitting or edema. No cyanosis. NEUROLOGICAL: Cranial nerves grossly intact. Normal speech, normal gait. Normal sensory, motor exams PSYCH: Normal mood, normal affect. SKIN: Warm, Dry, normal turgor, no rashes or lesions noted. Physical Exam - Vital signs Vitals: Resp 16 02/02/17 18:22 Course - Re-evaluation Re-evalutation: 02/02/17 18:30 Septic workup immediately started, patient has received Solu-Medrol and DuoNeb prior to arrival and I believe this is not cardiac in nature 02/02/17 20:29 pt noted to have wbc count of 15 , probable pneumonia, pt given iv fluids, will admit due ot hr of 150hr. - Vital Signs Vital signs: Temp Pulse Resp BP Pulse Ox 18 94/56 L 98 02/02/17 20:01 02/02/17 20:00 02/02/17 20:01 - Laboratory Result Diagrams: 02/02/17 18:15 02/02/17 18:15 Laboratory results interpreted by me: 02/02/17 02/02/17 02/02/17 18:15 18:15 18:15 WBC 15.0 H RBC 4.08 L MCH 33.7 H RDW 14.8 H Seg Neutrophils % 78.2 H Absolute Neutrophils 11.7 H Sodium 127.3 L Chloride 93 L Glucose 163 H Calcium 8.2 L Alkaline Phosphatase 131 H Creatine Kinase 435 H CK-MB (CK-2) 8.66 H Total Protein 6.1 L - Diagnostic Test Radiology reviewed: Image reviewed, Reports reviewed - EKG Interpretation by Me EKG shows normal: Sinus rhythm, [place], Intervals, QRS Complexes Rate: Tachycardia Critical Care Note - Critical Care Note Total time excluding time spent on procedures (mins): 34 Comments: minutes of critical care time spent in direct contact evaluating and reevaluating the patient, treating symptoms, reviewing labs and studies and speaking with family and consultants excluding any procedures Discharge - Discharge Clinical Impression: Sepsis Qualifiers: Sepsis type: sepsis due to unspecified organism Qualified Code(s): A41.9 - Sepsis, unspecified organism Pneumonia Qualifiers: Pneumonia type: due to unspecified organism Laterality: unspecified laterality Lung location: unspecified part of lung Qualified Code(s): J18.9 - Pneumonia, unspecified organism Condition: Stable Disposition: ADMITTED INPATIENT Admitting Provider: Hospitalist Unit Admitted: Telemetry
[2017-02-02] MEDS ORDERED: IPRATROPIUM/ALBUTEROL 0.5-2.5 MG/3 ML AMPUL NEB ONE ×2 (18:30)
[2017-02-02 18:40] LABS: ABSOLUTE EOSINOPHILS # (AUTO) 0.1 10^3/uL (0.0-0.6); ABSOLUTE LYMPHOCYTES (AUTO) 2.2 10^3/uL (0.5-4.7); ABSOLUTE MONOCYTES (AUTO) 0.9 10^3/uL (0.1-1.4); ABSOLUTE NEUT (AUTO) 11.7 10^3/uL (1.7-8.2); BASOPHILS % (AUTO) 0.3 % (0-2); EOSINOPHILS % (AUTO) 0.4 % (0-6); HEMATOCRIT 39.4 % (37.9-51.0); HEMOGLOBIN 13.7 g/dL (13.5-17.0); LYMPHOCYTES % (AUTO) 14.9 % (13-45); MEAN CORPUSCULAR HEMOGLOBIN 33.7 pg (27.0-33.4); MEAN CORPUSCULAR HGB CONC 34.9 g/dL (32.0-36.0); MEAN CORPUSCULAR VOLUME 96 fl (80-97); MONOCYTES % (AUTO) 6.2 % (3-13); PLATELET COUNT 238 10^3/uL (150-450); RED BLOOD COUNT 4.08 10^6/uL (4.35-5.55); RED CELL DISTRIBUTION WIDTH 14.8 % (11.5-14.0); SEGMENTED NEUTROPHILS % (AUTO) 78.2 % (42-78); TOTAL CELLS COUNTED % (AUTO) 100 %; VENOUS BLOOD BASE EXCESS 0.6 mmol/L; VENOUS BLOOD HCO3 25.2 mmol/L (20-32); VENOUS BLOOD PCO2 40.3 mmHg (35-63); VENOUS BLOOD PH 7.41 (7.30-7.42)
--- NOTE | 2017-02-02 18:44 | RADIOLOGY REPORT (SQ) ---
EXAM DESCRIPTION: CHEST SINGLE VIEW COMPLETED DATE/TIME: 02/02/2017 6:35 pm REASON FOR STUDY: bed 9 cp COMPARISON: 11/01/2016 EXAM PARAMETERS: NUMBER OF VIEWS: Two views. TECHNIQUE: 2 frontal radiographic views of the chest acquired. RADIATION DOSE: NA LIMITATIONS: None. FINDINGS: LUNGS AND PLEURA: No opacities, masses or pneumothorax. No pleural effusion. MEDIASTINUM AND HILAR STRUCTURES: No masses. Contour normal. HEART AND VASCULAR STRUCTURES: Heart normal in size. Normal vasculature. BONES: No acute findings. HARDWARE: None in the chest. OTHER: No other significant finding. IMPRESSION: NO ACUTE RADIOGRAPHIC FINDING IN THE CHEST. TECHNICAL DOCUMENTATION: JOB ID: [id number] [employer]- All Rights Reserved
[2017-02-02 18:59] LABS: ALANINE AMINOTRANSFERASE 35 U/L (21-72); ALBUMIN 3.7 g/dL (3.5-5.0); ALKALINE PHOSPHATASE 131 U/L (38-126); ASPARTATE AMINO TRANSFERASE 36 U/L (17-59); BILIRUBIN,DIRECT 0.3 mg/dL (0.0-0.4); BILIRUBIN,TOTAL 0.6 mg/dL (0.2-1.3); BLOOD UREA NITROGEN 15 mg/dL (7-20); CALCIUM 8.2 mg/dL (8.4-10.2); CARBON DIOXIDE 24 mmol/L (22-30); CREATINE KINASE 435 U/L (55-170); GLUCOSE 163 mg/dL (75-110); TOTAL PROTEIN 6.1 g/dL (6.3-8.2)
[2017-02-02 19:03] LABS: ANION GAP 10 (5-19); CHLORIDE 93 mmol/L (98-107); POTASSIUM 4.2 mmol/L (3.6-5.0); SODIUM 127.3 mmol/L (137-145)
[2017-02-02 19:10] LABS: CREATINE KINASE MB 8.66 ng/mL (<4.55); TROPONIN I 0.028 ng/mL
[2017-02-02] MEDS ORDERED: NORMAL SALINE 1000 ML 1,000 ML IV ONE (20:27)
[2017-02-02] MEDS ORDERED: DEXTROSE 50%-WATER 25 GM/50 ML DISP.SYRIN IV PRN ×2 (21:10)
[2017-02-02] MEDS ORDERED: DEXTROSE 40% GEL 15 GM TUBE PO PRN ×2 (21:10)
[2017-02-02] MEDS ORDERED: GLUCAGON,HUMAN RECOMB 1 MG INJ IM PRN (21:10)
[2017-02-02] MEDS ORDERED: METHYLPREDNISOLONE INJ 40 MG/1 ML SDV IV SCH (21:15)
[2017-02-02 21:31] LABS: MAGNESIUM 1.4 mg/dL (1.6-2.3)
[2017-02-02 21:38] LABS: ALCOHOL < 10 mg/dL (NONE DETECTED)
[2017-02-02] MEDS ORDERED: FAMOTIDINE 20 MG TABLET PO SCH (22:00)
--- NOTE | 2017-02-02 22:18 | PDOC H&P ---
History of Present Illness Admission Date/PCP: 02/02/17 20:39 No PCP History of Present Illness: TAMMY RICHARDS is a 61 year old male with past medical history of GERD, BPH and neuropathy who presents to the emergency department with shortness of breath, productive cough, and fever for several days. History is difficult to obtain from patient as he will arouse when stimulated, but quickly falls back asleep. The remainder of the history is obtained from the ER provider and the medical record. Past Medical History Cardiac Medical History: Reports: Congestive Heart Failure, Myocardial Infarction Pulmonary Medical History: Reports: Chronic Obstructive Pulmonary Disease (COPD) Endocrine Medical History: Reports: Diabetes Mellitus Type 2 - insulin dependent GI Medical History: Reports: Gastroesophageal Reflux Disease Past Surgical History Past Surgical History: Reports: Other - unable to obtain Social History Lives with: Homeless Smoking Status: Current Every Day Smoker Frequency of Alcohol Use: Occasional Hx Recreational Drug Use: No - unable to obtain - Advance Directive Resuscitation Status: Full Code Family History Family History: Reviewed & Not Pertinent Parental Family History Reviewed: No Children Family History Reviewed: No Sibling(s) Family History Reviewed.: No Medication/Allergy Home Medications: Aspirin [Adult Aspirin Regimen] 81 mg PO DAILY 02/02/17 Furosemide 20 mg PO BID 02/02/17 Furosemide [Lasix] 40 mg PO DAILY 02/02/17 Gabapentin 300 mg PO TID 02/02/17 Omeprazole 20 mg PO DAILY 02/02/17 Tamsulosin HCl 0.4 mg PO DAILY 02/02/17 Allergies/Adverse Reactions: walnuts Allergy (Uncoded 11/01/16 01:37) Review of Systems ROS unobtainable: Due to mental status Physical Exam Vital Signs: Temp Pulse Resp BP Pulse Ox 99.5 F 107 H 14 129/71 H 100 02/02/17 21:23 02/02/17 21:23 02/02/17 21:23 02/02/17 21:23 02/02/17 21:23 General appearance: PRESENT: no acute distress, disheveled, hard of hearing, well-developed, well-nourished Head exam: PRESENT: atraumatic, normocephalic Eye exam: PRESENT: conjunctiva pink, EOMI, PERRLA. ABSENT: scleral icterus Ear exam: PRESENT: normal external ear exam Mouth exam: PRESENT: dry mucosa, tongue midline Neck exam: PRESENT: lymphadenopathy. ABSENT: JVD, thyromegaly, tracheal deviation Respiratory exam: PRESENT: prolonged expiratory phas, rhonchi, symmetrical, unlabored, wheezes. ABSENT: accessory muscle use, rales, tachypnea Cardiovascular exam: PRESENT: RRR, +S1, +S2. ABSENT: diastolic murmur, rubs, systolic murmur Pulses: PRESENT: normal dorsalis pedis pul Vascular exam: PRESENT: normal capillary refill GI/Abdominal exam: PRESENT: normal bowel sounds, soft. ABSENT: distended, guarding, mass, Cortez's sign, organolmegaly, rebound, tenderness Rectal exam: PRESENT: deferred Extremities exam: PRESENT: +1 edema. ABSENT: calf tenderness, clubbing Neurological exam: PRESENT: altered Psychiatric exam: PRESENT: other - Lethargic but arousable Skin exam: PRESENT: dry, warm. ABSENT: cyanosis, rash Results Laboratory Results: 02/02/17 02/02/17 02/02/17 18:15 18:15 18:15 WBC 15.0 H Hgb 13.7 Hct 39.4 Plt Count 238 VBG pH VBG pCO2 VBG HCO3 Sodium 127.3 L Potassium 4.2 Chloride 93 L Carbon Dioxide 24 Anion Gap 10 BUN 15 Creatinine 0.77 Glucose 163 H Lactic Acid Calcium 8.2 L Magnesium Total Bilirubin 0.6 Direct Bilirubin 0.3 AST 36 ALT 35 Alkaline Phosphatase 131 H Creatine Kinase 435 H CK-MB (CK-2) 8.66 H Troponin I 0.028 Total Protein 6.1 L Albumin 3.7 Serum Alcohol 02/02/17 02/02/17 02/02/17 18:15 18:15 18:15 WBC Hgb Hct Plt Count VBG pH 7.41 VBG pCO2 40.3 VBG HCO3 25.2 Sodium Potassium Chloride Carbon Dioxide Anion Gap BUN Creatinine Glucose Lactic Acid 1.5 Calcium Magnesium 1.4 L Total Bilirubin Direct Bilirubin AST ALT Alkaline Phosphatase Creatine Kinase CK-MB (CK-2) Troponin I Total Protein Albumin Serum Alcohol < 10 Impressions: Chest X-Ray 02/02/17 18:03 IMPRESSION: NO ACUTE RADIOGRAPHIC FINDING IN THE CHEST. Assessment & Plan - Diagnosis (1) Pneumonia Qualifiers: Pneumonia type: due to unspecified organism Laterality: unspecified laterality Lung location: unspecified part of lung Qualified Code(s): J18.9 - Pneumonia, unspecified organism Is this a current diagnosis for this admission?: Yes Plan: Place patient on scheduled nebulized treatments and re-evaluate for improvement. PRN Xopenex Place patient on IV Solu-Medrol Obtain sputum culture (2) Sepsis Qualifiers: Sepsis type: sepsis due to unspecified organism Qualified Code(s): A41.9 - Sepsis, unspecified organism Is this a current diagnosis for this admission?: Yes Plan: Give patient IV fluids he has already received bolus in the ED. Place patient on antibiotic therapy for community acquired pneumonia. Will check an influenza. (3) Acute hypoxemic respiratory failure Is this a current diagnosis for this admission?: Yes Plan: Continue oxygen to maintain saturation greater than 93% (4) Hypomagnesemia Is this a current diagnosis for this admission?: Yes Plan: Monitor on telemetry with concern for arrhythmia. 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 treater helper insulin use: unspecified penitentiary insulin use status Qualified Code(s): E11.8 - Type 2 diabetes mellitus with unspecified complications Is this a current diagnosis for this admission?: Yes Plan: Place patient on Accu-Cheks and sliding scale insulin - Time Time Spent: 30 to 50 Minutes Medications reviewed and adjusted accordingly: Yes Anticipated discharge: Other - Inpatient Certification Based on my medical assessment, after consideration of the patient's comorbidities, presenting symptoms, or acuity I expect that the services needed warrant INPATIENT care.: Yes I certify that my determination is in accordance with my understanding of Medicare's requirements for reasonable and necessary INPATIENT services [42 CFR 412.3e].: Yes Medical Necessity: Need For IV Fluids, Need For Continuous Telemetry Monitoring , Need for Nebulizer Therapy and Monitoring of Response, Need for IV Antibiotics Post Hospital Care: D/C Armed Security Officer Documentation
--- NOTE | 2017-02-02 23:04 | EKG REPORT ---
SEVERITY:- ABNORMAL ECG - SINUS TACHYCARDIA NONSPECIFIC T ABNORMALITIES, LATERAL LEADS : Confirmed by: Al Xiong 02-Feb-2017 23:03:43
[2017-02-03] MEDS: METHYLPREDNISOLONE INJ 125 MG/2 ML SDV IV SCH ×4 (00:34→21:47)
[2017-02-03] MEDS: MAGNESIUM SULFATE/D5W 1 GM/100 ML RTUPB IV SCH ×3 (00:34→03:13)
[2017-02-03] MEDS: GUAIFENESIN 600 MG TABLET.SA PO SCH ×3 (00:40→21:49)
[2017-02-03] MEDS: GABAPENTIN 300 MG CAPSULE PO SCH ×4 (00:40→21:49)
[2017-02-03] MEDS ORDERED: FOLIC ACID INJ 5 MG/1 ML 10 ML VIAL IV PRN (01:21)
[2017-02-03] MEDS ORDERED: THIAMINE HCL INJ 200 MG/2 ML VIAL IV PRN (01:22)
[2017-02-03] MEDS ORDERED: THIAMINE HCL INJ 200 MG/2 ML VIAL IV ONE (01:30)
[2017-02-03] MEDS ORDERED: FOLIC ACID INJ 5 MG/1 ML 10 ML VIAL IV ONE (01:30)
[2017-02-03] MEDS ORDERED: FOLIC ACID INJ 5 MG/1 ML 10 ML VIAL ONE (01:41)
[2017-02-03] MEDS ORDERED: THIAMINE HCL INJ 200 MG/2 ML VIAL ONE (01:42)
[2017-02-03] MEDS: IPRATROPIUM/ALBUTEROL 0.5-2.5 MG/3 ML AMPUL NEB SCH ×4 (02:20→20:15)
[2017-02-03] MEDS: INSULIN LISPRO 100 UNIT/ML 3 ML VIAL SUBCUT PRN ×5 (03:13→21:47)
[2017-02-03] MEDS ORDERED: INFLUENZA ADLT QUAD (36MOS+) 2017-18 VAC 0.5 ML SYR IM PRN (04:02)
[2017-02-03 05:12] LABS: URINE AMPHETAMINES SCREEN NEGATIVE; URINE BARBITURATES SCREEN NEGATIVE; URINE BENZODIAZEPINES SCREEN NEGATIVE; URINE COCAINE SCREEN NEGATIVE; URINE MARIJUANA (THC) SCREEN NEGATIVE; URINE METHADONE SCREEN NEGATIVE; URINE PHENCYCLIDINE SCREEN NEGATIVE
[2017-02-03 05:20] LABS: ABSOLUTE LYMPHOCYTES (AUTO) 0.4 10^3/uL (0.5-4.7); ABSOLUTE MONOCYTES (AUTO) 0.1 10^3/uL (0.1-1.4); ABSOLUTE NEUT (AUTO) 6.4 10^3/uL (1.7-8.2); HEMATOCRIT 36.9 % (37.9-51.0); HEMOGLOBIN 12.6 g/dL (13.5-17.0); LYMPHOCYTES % (AUTO) 5.8 % (13-45); MEAN CORPUSCULAR HEMOGLOBIN 33.4 pg (27.0-33.4); MEAN CORPUSCULAR HGB CONC 34.1 g/dL (32.0-36.0); MEAN CORPUSCULAR VOLUME 98 fl (80-97); MONOCYTES % (AUTO) 1.6 % (3-13); PLATELET COUNT 201 10^3/uL (150-450); RED BLOOD COUNT 3.76 10^6/uL (4.35-5.55); RED CELL DISTRIBUTION WIDTH 14.8 % (11.5-14.0); SEGMENTED NEUTROPHILS % (AUTO) 92.6 % (42-78); TOTAL CELLS COUNTED % (AUTO) 100 %
[2017-02-03 05:38] LABS: ANION GAP 10 (5-19); BLOOD UREA NITROGEN 10 mg/dL (7-20); CALCIUM 7.9 mg/dL (8.4-10.2); CARBON DIOXIDE 20 mmol/L (22-30); CHLORIDE 103 mmol/L (98-107); GLUCOSE 234 mg/dL (75-110); SODIUM 132.5 mmol/L (137-145)
[2017-02-03] MEDS: LANSOPRAZOLE 15 MG TAB.RAP.DR PO SCH (05:38)
[2017-02-03] MEDS: NORMAL SALINE 1000 ML 1,000 ML IV PRN (08:54)
[2017-02-03] MEDS: ASPIRIN 81 MG TABLET, ENT COATED PO SCH (09:40)
[2017-02-03] MEDS: TAMSULOSIN HCL 0.4 MG CAP.SR.24H PO SCH (09:40)
[2017-02-03] MEDS ORDERED: NORMAL SALINE 1000 ML 1,000 ML with POTASSIUM CHLORIDE 20 MEQ, MAGNESIUM SULFATE 8 MEQ,... IV SCH ×5 (10:00)
[2017-02-03] MEDS ORDERED: CEFTRIAXONE 1 GM/D5W RTU 1 GM/50 ML RTUPB IV SCH (10:00)
[2017-02-03] MEDS ORDERED: AZITHROMYCIN 500 MG in DEXTROSE 5%-WATER 250 ML IV SCH (10:00)
[2017-02-03] MEDS ORDERED: ENOXAPARIN SODIUM INJ 40 MG/0.4 ML DISP.SYRIN SUBCUT SCH (10:00)
[2017-02-03] MEDS: NORMAL SALINE 1000 ML 1,000 ML with POTASSIUM CHLORIDE 20 MEQ, MAGNESIUM SULFATE 8 MEQ,... IV SCH ×5 (17:22)
--- NOTE | 2017-02-03 18:35 | PDOC PROGRESS REPORT ---
Subjective Progress Note for:: 02/03/17 Subjective:: There is a follow-up visit for possible pneumonia. The patient states that he cannot remember everything exactly. He states that he had couple beers a night before last. He thinks he may have been passing out yesterday. At the moment he denies any chest pain or shortness of breath. He is been tachycardic for most of the day. Reason For Visit: PNEUMONIA Physical Exam Vital Signs: Temp Pulse Resp BP Pulse Ox 97.5 F 109 H 18 122/62 99 02/03/17 15:47 02/03/17 15:47 02/03/17 15:47 02/03/17 15:47 02/03/17 15:47 Intake & Output 02/02/17 02/03/17 02/04/17 06:59 06:59 06:59 Intake Total 1295 1000 Output Total 260 Balance 1035 1000 Weight 69 kg GENERAL: This is a well-developed and nourished disheveled appearing white male resting in bed currently in no acute distress. HEART: Tachycardic. No murmurs rubs or gallops. LUNGS: Diminished bilaterally with equal rise and fall of the chest. ABDOMEN: Soft, nontender, nondistended with normoactive bowel sounds EXTREMETIES: No clubbing, cyanosis or edema. 2+ peripheral pulses bilaterally. NEURO: Awake, alert and oriented 3. Cranial nerves II through XII are grossly intact. Results Laboratory Results: 02/03/17 03:50 02/03/17 03:50 02/03/17 02/03/17 03:50 03:50 WBC 7.0 RBC 3.76 L Hgb 12.6 L Hct 36.9 L MCV 98 H MCH 33.4 MCHC 34.1 RDW 14.8 H Plt Count 201 Seg Neutrophils % 92.6 H Lymphocytes % 5.8 L Monocytes % 1.6 L Eosinophils % 0.0 Basophils % 0.0 Absolute Neutrophils 6.4 Absolute Lymphocytes 0.4 L Absolute Monocytes 0.1 Absolute Eosinophils 0.0 Absolute Basophils 0.0 Sodium 132.5 L Potassium 4.0 Chloride 103 Carbon Dioxide 20 L Anion Gap 10 BUN 10 Creatinine 0.59 Est GFR ( Amer) > 60 Est GFR (Non-Af Amer) > 60 Glucose 234 H Calcium 7.9 L 02/02/17 21:45 Sputum Gram Stain - Final 02/02/17 21:45 Sputum Sputum Culture - Final 02/02/17 02/03/17 21:45 03:50 Troponin I 0.030 0.066 Impressions: Chest X-Ray 02/02/17 18:03 IMPRESSION: NO ACUTE RADIOGRAPHIC FINDING IN THE CHEST. Assessment & Plan - Diagnosis (1) Acute hypoxemic respiratory failure Is this a current diagnosis for this admission?: Yes Plan: This is improved. Likely secondary to underlying pneumonia versus severe bronchitis. Chest x-ray negative for any infiltrates. Repeat chest x-ray in the morning. Continue nebulizer treatments as needed as well as oxygen. Continue antibiotics. (2) Acute metabolic encephalopathy Is this a current diagnosis for this admission?: Yes Plan: This seems to be resolving nicely. Continue to monitor. (3) Diabetes mellitus Qualifiers: Diabetes mellitus type: type 2 Diabetes mellitus complication status: with unspecified complications Diabetes mellitus third rigger insulin use: unspecified mcc insulin use status Qualified Code(s): E11.8 - Type 2 diabetes mellitus with unspecified complications Is this a current diagnosis for this admission?: Yes Plan: Continue sliding scale insulin. (4) Hypomagnesemia Is this a current diagnosis for this admission?: Yes Plan: Magnesium was replaced. Repeat in a.m. (5) Pneumonia Qualifiers: Pneumonia type: due to unspecified organism Laterality: unspecified laterality Lung location: unspecified part of lung Qualified Code(s): J18.9 - Pneumonia, unspecified organism Is this a current diagnosis for this admission?: Yes Plan: Patient is on Rocephin and azithromycin. He is also on Solu-Medrol at 80 q. 8. Decrease Solu-Medrol tomorrow. Continue antibiotics for now. This could be severe bronchitis. Chest x-ray was negative. Patient is afebrile. He is tachycardic which would be explained by his underlying illness. (6) Sepsis Qualifiers: Sepsis type: sepsis due to unspecified organism Qualified Code(s): A41.9 - Sepsis, unspecified organism Is this a current diagnosis for this admission?: Yes Plan: Patient is tachycardic. Had been tachypneic with an elevated white count. It is possible that he has underlying community-acquired pneumonia with likely atypical or gram-positive organisms. It is also quite likely that this patient could have a severe bronchitis. Going to repeat the chest x-ray and continue him on current antibiotics for now continue to monitor. - Time Time Spent with patient: 15-24 minutes Anticipated discharge: Other Within: within 72 hours
[2017-02-04] MEDS: LEVALBUTEROL HCL NEB 1.25 MG/3 ML AMPUL NEB PRN ×2 (00:45→08:26)
[2017-02-04] MEDS ORDERED: FUROSEMIDE INJ/PF 40 MG/4 ML SDV ONE (00:55)
[2017-02-04] MEDS: IPRATROPIUM/ALBUTEROL 0.5-2.5 MG/3 ML AMPUL NEB SCH ×4 (00:55→19:55)
[2017-02-04] MEDS ORDERED: LORAZEPAM INJ 2 MG/1 ML VIAL ONE (00:57)
[2017-02-04] MEDS ORDERED: LORAZEPAM INJ 2 MG/1 ML VIAL IV ONE (01:01)
[2017-02-04] MEDS ORDERED: METHYLPREDNISOLONE INJ 125 MG/2 ML SDV IV ONE (01:04)
[2017-02-04] MEDS ORDERED: MAGNESIUM SULFATE/D5W 1 GM/100 ML RTUPB IV PRN (01:05)
[2017-02-04] MEDS ORDERED: METHYLPREDNISOLONE INJ 125 MG/2 ML SDV ONE (01:05)
[2017-02-04] MEDS ORDERED: FUROSEMIDE INJ/PF 20 MG/2 ML SDV IV ONE (01:06)
[2017-02-04] MEDS ORDERED: MIDAZOLAM HCL 100 ML IV PRN (01:14)
[2017-02-04] MEDS ORDERED: PHARMACY COMMUNICATION ORDER MC NR (01:15)
[2017-02-04] MEDS ORDERED: LORAZEPAM INJ 2 MG/1 ML VIAL IV PRN ×2 (01:16→10:14)
[2017-02-04] MEDS ORDERED: PROPOFOL 100 ML IV ONE (01:21)
[2017-02-04 01:26] LABS: ARTERIAL BLOOD BASE EXCESS -10.3 mmol/L; ARTERIAL BLOOD H2CO3 3.69 mmol/L (1.05-1.35); ARTERIAL BLOOD HCO3 25.4 mmol/L (20-26); ARTERIAL BLOOD O2 SATURATION 76.6 % (94-98); ARTERIAL BLOOD PO2 66.9 mmHg (80-100); ARTERIAL BLOOD TOTAL CO2 29.1 mmol/L (23-27)
[2017-02-04 01:28] LABS: ARTERIAL BLOOD FIO2 100%
[2017-02-04 01:30] LABS: ARTERIAL BLOOD PH 6.93 (7.35-7.45)
[2017-02-04] MEDS ORDERED: SODIUM BICARBONATE 8.4% INJ 50 MEQ/50 ML DISP.SYRIN IV ONE (01:30)
[2017-02-04 01:31] LABS: ARTERIAL BLOOD PCO2 122.7 mmHg (35-45)
--- NOTE | 2017-02-04 01:32 | RADIOLOGY REPORT (SQ) ---
EXAM DESCRIPTION: CHEST SINGLE VIEW CLINICAL HISTORY: hypoxia COMPARISON: 02/02/2017 FINDINGS: Single frontal view of the chest. The cardiomediastinal silhouette has normal size and contour. No development of right basilar airspace opacity. No pneumothorax or pleural effusion. No displaced rib fractures identified. Upper abdominal soft tissues are unremarkable. IMPRESSION: 1. Interval development of right basilar airspace opacity. This could represent developing pneumonia. Continued radiographic follow-up to resolution recommended.
[2017-02-04] MEDS ORDERED: METOPROLOL TARTRATE PF/INJ 5 MG/5 ML SDV IV ONE (01:38)
[2017-02-04] MEDS ORDERED: VANCOMYCIN HCL 0 MG in DEXTROSE 5%-WATER 250 ML IV NR (01:45)
--- NOTE | 2017-02-04 02:02 | PDOC PROGRESS REPORT ---
Subjective Progress Note for:: 02/04/17 Subjective:: Called the patient room for rapid response. Patient was tachypneic and tachycardic at this time. Nursing reports that patient was having some tremors prior to the onset of his tachypnea and tachycardia. Reason For Visit: RaPID RESPONSE Physical Exam Vital Signs: Temp Pulse Resp BP Pulse Ox 97.7 F 106 H 19 122/72 100 02/03/17 23:38 02/03/17 23:38 02/03/17 23:38 02/03/17 23:38 02/03/17 23:38 Intake & Output 02/02/17 02/03/17 02/04/17 06:59 06:59 06:59 Intake Total 1295 1846 Output Total 260 1050 Balance 1035 796 Weight 69 kg Exam: General: Awake, anxious, severe respiratory distress HEENT: AT/NC, PERRL, EOMI, oropharynx is moist, pink, no scleral icterus, no conjunctival injection Neck: No JVD, trachea midline Chest: Generalized poor air excursion, tachypnea, severe respiratory distress, poor air movement, wheezing bilaterally CV: Tachycardic, regular rate and rhythm Abdomen: Soft, nontender to palpation, nondistended, active bowel sounds; no rebound, rigidity, or guarding Extremities: No cyanosis, +clubbing or NO edema Results Laboratory Results: 02/03/17 02/03/17 02/04/17 03:50 03:50 01:10 WBC 7.0 RBC 3.76 L Hgb 12.6 L Hct 36.9 L MCV 98 H MCH 33.4 MCHC 34.1 RDW 14.8 H Plt Count 201 Seg Neutrophils % 92.6 H Lymphocytes % 5.8 L Monocytes % 1.6 L Eosinophils % 0.0 Basophils % 0.0 Absolute Neutrophils 6.4 Absolute Lymphocytes 0.4 L Absolute Monocytes 0.1 Absolute Eosinophils 0.0 Absolute Basophils 0.0 Carbonic Acid 3.69 H HCO3/H2CO3 Ratio 6:1 ABG pH 6.93 L* ABG pCO2 122.7 H* ABG pO2 66.9 L ABG HCO3 25.4 ABG O2 Saturation 76.6 L ABG Base Excess -10.3 FiO2 100% Sodium 132.5 L Potassium 4.0 Chloride 103 Carbon Dioxide 20 L Anion Gap 10 BUN 10 Creatinine 0.59 Est GFR ( Amer) > 60 Est GFR (Non-Af Amer) > 60 Glucose 234 H Calcium 7.9 L 02/02/17 21:45 Sputum Gram Stain - Final 02/02/17 21:45 Sputum Sputum Culture - Final 02/02/17 02/03/17 21:45 03:50 Troponin I 0.030 0.066 Impressions: Chest X-Ray 02/04/17 00:00 IMPRESSION: 1. Interval development of right basilar airspace opacity. This could represent developing pneumonia. Continued radiographic follow-up to resolution recommended. Assessment & Plan - Diagnosis (1) Acute hypercapnic respiratory failure Is this a current diagnosis for this admission?: Yes Plan: Despite our on the floor interventions of repeat breathing treatments, ABG, BiPAP application, Solu-Medrol administration, patient continued to be in extremis requiring intubation. Return ABG revealed a pH of 6.93 and a PCO2 of 122. Currently pending repeat ABG after intubation. (2) Pneumonia Qualifiers: Pneumonia type: due to unspecified organism Laterality: right Lung location: middle lobe of lung Qualified Code(s): J18.1 - Lobar pneumonia, unspecified organism Is this a current diagnosis for this admission?: Yes Plan: Patient has a right middle/lower lobe pneumonia has been evident on his chest x- ray. Due to his acute worsening, will escalate patient to Zosyn and vancomycin. Will obtain sputum specimen. Continue scheduled nebulized treatments and Solu-Medrol. Will consult pulmonary medicine for ventilator management. (3) Sepsis Qualifiers: Sepsis type: sepsis due to unspecified organism Qualified Code(s): A41.9 - Sepsis, unspecified organism Is this a current diagnosis for this admission?: Yes (4) Acute hypoxemic respiratory failure Is this a current diagnosis for this admission?: Yes Plan: Now intubated on 45% FiO2 (5) Hypomagnesemia Is this a current diagnosis for this admission?: Yes Plan: Replete and recheck Monitor for arrhythmia (6) Acute metabolic encephalopathy Is this a current diagnosis for this admission?: Yes (7) Diabetes mellitus Qualifiers: Diabetes mellitus type: type 2 Diabetes mellitus complication status: with unspecified complications Diabetes 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 insulin 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: unspecified dedicated 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 insulin use status Qualified Code(s): E11.8 - Type 2 diabetes mellitus with unspecified complications Is this a current diagnosis for this admission?: Yes Plan: Place patient on Accu-Cheks every 6 hours and sliding scale insulin (8) DVT prophylaxis Is this a current diagnosis for this admission?: Yes Plan: On Lovenox and SCDs (9) GI prophylaxis Is this a current diagnosis for this admission?: Yes Plan: On Prevacid - Time Total Critical Time (Minutes): 60 - Inpatient Certification Based on my medical assessment, after consideration of the patient's comorbidities, presenting symptoms, or acuity I expect that the services needed warrant INPATIENT care.: Yes I certify that my determination is in accordance with my understanding of Medicare's requirements for reasonable and necessary INPATIENT services [42 CFR 412.3e].: Yes
[2017-02-04 02:04] LABS: ARTERIAL BLOOD BASE EXCESS -8.2 mmol/L; ARTERIAL BLOOD FIO2 3L; ARTERIAL BLOOD HCO3 21.1 mmol/L (20-26); ARTERIAL BLOOD O2 SATURATION 95.9 % (94-98); ARTERIAL BLOOD PCO2 59.7 mmHg (35-45); ARTERIAL BLOOD PO2 102.1 mmHg (80-100); ARTERIAL BLOOD TOTAL CO2 22.9 mmol/L (23-27)
[2017-02-04 02:05] LABS: ARTERIAL BLOOD PH 7.17 (7.35-7.45)
[2017-02-04 02:06] LABS: HEMATOCRIT 37.9 % (37.9-51.0); HEMOGLOBIN 12.8 g/dL (13.5-17.0); MEAN CORPUSCULAR HGB CONC 33.8 g/dL (32.0-36.0); MEAN CORPUSCULAR VOLUME 100 fl (80-97); PLATELET COUNT 273 10^3/uL (150-450); RED BLOOD COUNT 3.77 10^6/uL (4.35-5.55)
[2017-02-04] MEDS ORDERED: PIPERACILLIN/TAZOBACTAM 4.5 GM VIAL IV PRN (02:07)
[2017-02-04] MEDS ORDERED: CALCIUM GLUCONATE 1000 MG/10 ML INJ IV ONE ×2 (02:08→02:12)
[2017-02-04 02:09] LABS: INTERNATIONAL RATION (INR) 0.99; PROTHROMBIN TIME 13.8 SEC (11.4-15.4)
[2017-02-04] MEDS ORDERED: SODIUM BICARBONATE 8.4% INJ 50 MEQ/50 ML DISP.SYRIN ONE (02:12)
[2017-02-04 02:15] LABS: ANION GAP 13 (5-19); BLOOD UREA NITROGEN 16 mg/dL (7-20); CALCIUM 7.7 mg/dL (8.4-10.2); CARBON DIOXIDE 22 mmol/L (22-30); CHLORIDE 103 mmol/L (98-107); GLUCOSE 281 mg/dL (75-110); POTASSIUM 4.3 mmol/L (3.6-5.0)
[2017-02-04] MEDS ORDERED: VANCOMYCIN HCL INJ 1000 MG VIAL IV PRN (02:19)
[2017-02-04 02:21] LABS: APPEARANCE,URINE TURBID; BILIRUBIN,URINE NEGATIVE (NEGATIVE); GLUCOSE, URINE 150 mg/dL (NEGATIVE); KETONES,URINE NEGATIVE (NEGATIVE); LEUKOCYTE ESTERASE,URINE MODERATE (NEGATIVE); NITRITE,URINE NEGATIVE (NEGATIVE); PROTEIN,URINE 100 mg/dL (NEGATIVE); URINE SPECIFIC GRAVITY 1.014; UROBILINOGEN,URINE NEGATIVE mg/dL (<2.0)
[2017-02-04 02:22] LABS: COLOR,URINE YELLOW
[2017-02-04 02:33] LABS: ABSOLUTE LYMPHOCYTES# (MANUAL) 1.8 10^3/uL (0.5-4.7); ABSOLUTE NEUTROPHILS# (MANUAL) 23.3 10^3/uL (1.7-8.2); BASOPHILS % (MANUAL) 0 % (0-2); EOSINOPHILS % (MANUAL) 0 % (0-6); LYMPHOCYTES % (MANUAL) 7 % (13-45); MONOCYTES % (MANUAL) 0 % (3-13); SEGMENTED NEUTROPHILS % (MAN) 93 % (42-78); TOTAL CELLS COUNTED 100
[2017-02-04] MEDS: PROPOFOL 100 ML IV PRN ×3 (02:34→20:47)
--- NOTE | 2017-02-04 02:35 | RADIOLOGY REPORT (SQ) ---
EXAM DESCRIPTION: CHEST SINGLE VIEW CLINICAL HISTORY: ett placement/post intubation COMPARISON: 02/04/2017 FINDINGS: Single view of the chest. Endotracheal tube with tip 6 cm above the la. NG tube with tip below the diaphragm. Heart is not enlarged. Atherosclerotic vascular calcification. Right basilar consolidation. No pneumothorax or definite pleural effusion. Leads overlie the chest. No acute osseous abnormalities. IMPRESSION: 1. Tubes and lines in appropriate radiographic position. Unchanged right basilar consolidation.
[2017-02-04 02:36] LABS: ANISOCYTOSIS SLIGHT; PLATELET COMMENT ADEQUATE
[2017-02-04] MEDS ORDERED: VANCOMYCIN HCL 1,500 MG in DEXTROSE 5%-WATER 250 ML IV SCH (03:00)
[2017-02-04] MEDS: FENTANYL CITRATE INJ/PF 100 MCG/2 ML AMPUL IV PRN (04:19)
[2017-02-04] MEDS: GABAPENTIN 300 MG CAPSULE PO SCH ×3 (05:02→21:19)
[2017-02-04] MEDS: LANSOPRAZOLE 15 MG TAB.RAP.DR PO SCH (05:02)
[2017-02-04] MEDS: PIPERACILLIN SODIUM/TAZOBACTAM 4.5 GM in NORMAL SALINE 100 ML IV SCH ×4 (05:02→23:16)
[2017-02-04] MEDS: METHYLPREDNISOLONE INJ 125 MG/2 ML SDV IV SCH ×3 (05:03→21:19)
[2017-02-04] MEDS: DIAZEPAM 5 MG TABLET NG SCH ×4 (05:03→23:15)
[2017-02-04 05:20] LABS: HEMATOCRIT 33.3 % (37.9-51.0); HEMOGLOBIN 11.4 g/dL (13.5-17.0); MEAN CORPUSCULAR HEMOGLOBIN 33.6 pg (27.0-33.4); MEAN CORPUSCULAR HGB CONC 34.2 g/dL (32.0-36.0); MEAN CORPUSCULAR VOLUME 98 fl (80-97); PLATELET COUNT 186 10^3/uL (150-450); RED BLOOD COUNT 3.39 10^6/uL (4.35-5.55); RED CELL DISTRIBUTION WIDTH 15.3 % (11.5-14.0); WHITE BLOOD COUNT 16.8 10^3/uL (4.0-10.5)
[2017-02-04 05:32] LABS: ANION GAP 10 (5-19); BLOOD UREA NITROGEN 18 mg/dL (7-20); CALCIUM 7.7 mg/dL (8.4-10.2); CARBON DIOXIDE 21 mmol/L (22-30); CHLORIDE 103 mmol/L (98-107); GLUCOSE 285 mg/dL (75-110); MAGNESIUM 2.1 mg/dL (1.6-2.3); POTASSIUM 3.8 mmol/L (3.6-5.0); SODIUM 134.4 mmol/L (137-145)
[2017-02-04 05:39] LABS: ARTERIAL BLOOD BASE EXCESS -4.2 mmol/L; ARTERIAL BLOOD H2CO3 0.98 mmol/L (1.05-1.35); ARTERIAL BLOOD HCO3 19.8 mmol/L (20-26); ARTERIAL BLOOD O2 SATURATION 98.9 % (94-98); ARTERIAL BLOOD PCO2 32.7 mmHg (35-45); ARTERIAL BLOOD TOTAL CO2 20.8 mmol/L (23-27)
[2017-02-04 05:43] LABS: ABSOLUTE LYMPHOCYTES# (MANUAL) 0.8 10^3/uL (0.5-4.7); ABSOLUTE MONOCYTES # (MANUAL) 0.5 10^3/uL (0.1-1.4); ABSOLUTE NEUTROPHILS# (MANUAL) 15.5 10^3/uL (1.7-8.2); BASOPHILS % (MANUAL) 0 % (0-2); EOSINOPHILS % (MANUAL) 0 % (0-6); LYMPHOCYTES % (MANUAL) 5 % (13-45); MONOCYTES % (MANUAL) 3 % (3-13); SEGMENTED NEUTROPHILS % (MAN) 92 % (42-78); TOTAL CELLS COUNTED 100
[2017-02-04 05:46] LABS: ANISOCYTOSIS SLIGHT; PLATELET COMMENT ADEQUATE
[2017-02-04 06:09] LABS: ARTERIAL BLOOD FIO2 45%
[2017-02-04] MEDS ORDERED: HEPARIN SOD (PORCINE) 1,000 UNIT/ML 10 ML VIAL IV ONE (06:15)
[2017-02-04] MEDS: INSULIN LISPRO 100 UNIT/ML 3 ML VIAL SUBCUT PRN ×2 (06:24→23:16)
[2017-02-04 06:44] LABS: HEMATOCRIT 33.8 % (37.9-51.0); HEMOGLOBIN 11.7 g/dL (13.5-17.0); MEAN CORPUSCULAR HGB CONC 34.6 g/dL (32.0-36.0); MEAN CORPUSCULAR VOLUME 98 fl (80-97); PLATELET COUNT 178 10^3/uL (150-450); RED BLOOD COUNT 3.44 10^6/uL (4.35-5.55); RED CELL DISTRIBUTION WIDTH 15.2 % (11.5-14.0); WHITE BLOOD COUNT 14.7 10^3/uL (4.0-10.5)
[2017-02-04 06:50] LABS: PROTHROMBIN TIME 13.9 SEC (11.4-15.4)
--- NOTE | 2017-02-04 06:50 | RADIOLOGY REPORT (SQ) ---
EXAM DESCRIPTION: CHEST SINGLE VIEW CLINICAL HISTORY: pna, resp failure COMPARISON: 02/04/2017 FINDINGS: Single view of the chest. Endotracheal tube with tip 6 cm above the la. NG tube with tip below the diaphragm. Heart is not enlarged. Atherosclerotic vascular calcification. Improved aeration of the right lung base. No pneumothorax or definite pleural effusion. Leads overlie the chest. No acute osseous abnormalities. IMPRESSION: 1. Tubes and lines in appropriate radiographic position. Improved aeration of the first distal right basilar opacity. Electronically signed by: Daniel Warren 02/04/2017 5:48
[2017-02-04 06:51] LABS: PARTIAL THROMBOPLASTIN TIME 27.1 SEC (23.5-35.8)
[2017-02-04] MEDS: HEPARIN SODIUM,PORCINE/D5W 25,000 UNIT/250 ML RTUINJ IV PRN (06:53)
[2017-02-04 07:10] LABS: ABSOLUTE LYMPHOCYTES# (MANUAL) 0.3 10^3/uL (0.5-4.7); ABSOLUTE MONOCYTES # (MANUAL) 0.1 10^3/uL (0.1-1.4); ABSOLUTE NEUTROPHILS# (MANUAL) 14.3 10^3/uL (1.7-8.2); BASOPHILS % (MANUAL) 0 % (0-2); EOSINOPHILS % (MANUAL) 0 % (0-6); LYMPHOCYTES % (MANUAL) 2 % (13-45); MONOCYTES % (MANUAL) 1 % (3-13); SEGMENTED NEUTROPHILS % (MAN) 97 % (42-78); TOTAL CELLS COUNTED 100
[2017-02-04 07:11] LABS: ANISOCYTOSIS SLIGHT
[2017-02-04 07:12] LABS: PLATELET COMMENT ADEQUATE
--- NOTE | 2017-02-04 07:49 | EKG REPORT ---
SEVERITY:- ABNORMAL ECG - SINUS TACHYCARDIA PROBABLE LEFT ATRIAL ABNORMALITY NONSPECIFIC T ABNORMALITIES, LATERAL LEADS : Confirmed by: Familia West MD 04-Feb-2017 07:48:54
[2017-02-04] MEDS ORDERED: VANCOMYCIN HCL 750 MG in DEXTROSE 5%-WATER 250 ML IV ONE (08:00)
[2017-02-04] MEDS ORDERED: ROCURONIUM BROMIDE INJ 50 MG/5 ML VIAL IV ONE (08:59)
[2017-02-04] MEDS ORDERED: HEPARIN SOD (PORCINE) 1,000 UNIT/ML 10 ML VIAL IV PRN (09:16)
[2017-02-04] MEDS: FOLIC ACID 1 MG TABLET NG SCH (09:39)
[2017-02-04] MEDS: THIAMINE HCL 100 MG TABLET NG SCH (09:39)
[2017-02-04] MEDS: TAMSULOSIN HCL 0.4 MG CAP.SR.24H PO SCH (09:40)
[2017-02-04] MEDS: GUAIFENESIN 600 MG TABLET.SA PO SCH ×2 (09:40→21:19)
[2017-02-04] MEDS: ASPIRIN 81 MG TABLET, ENT COATED PO SCH (09:40)
--- NOTE | 2017-02-04 10:31 | PDOC PROGRESS REPORT ---
Subjective Progress Note for:: 02/04/17 Subjective:: There is a follow-up visit for possible pneumonia with sepsis. Patient had difficulties overnight with acute respiratory failure necessitating rapid sequence intubation. Please see notes from the nocturnal wrist for details. Reason For Visit: PNEUMONIA Physical Exam Vital Signs: Temp Pulse Resp BP Pulse Ox 97.7 F 91 18 92/57 L 99 02/04/17 07:40 02/04/17 08:29 02/04/17 08:29 02/04/17 07:40 02/04/17 08:29 Intake & Output 02/03/17 02/04/17 02/05/17 06:59 06:59 06:59 Intake Total 1295 2973 Output Total 260 1725 150 Balance 1035 1248 -150 Weight 69 kg 69.8 kg Vent: VT 500. Respiratory rate 18. FiO2 30%. PEEP 8 Lines: 3 peripheral IVs. Drips: Propofol, heparin Antibiotics: Zosyn and vancomycin GENERAL: This is a well-developed and nourished white male resting in bed now ventilated. HEENT: ET tube has been placed. HEART: Regular rate according to the telemetry. Difficult to auscultate with percussive therapy. LUNGS: Clear anteriorly bilaterally with equal rise and fall of the chest. Percussive therapy underway. ABDOMEN: Soft, nontender, nondistended with normoactive bowel sounds EXTREMETIES: No clubbing, cyanosis or edema. 2+ peripheral pulses bilaterally. NEURO: Intubated and sedated on propofol only Results Laboratory Results: 02/04/17 06:34 02/04/17 04:47 02/04/17 02/04/17 02/04/17 01:10 01:42 01:42 WBC 25.0 H D RBC 3.77 L Hgb 12.8 L Hct 37.9 MCV 100 H MCH 34.0 H MCHC 33.8 RDW 15.0 H Plt Count 273 Seg Neutrophils % Not Reportable Lymphocytes % Not Reportable Monocytes % Not Reportable Eosinophils % Not Reportable Basophils % Not Reportable Absolute Neutrophils Not Reportable Absolute Lymphocytes Not Reportable Absolute Monocytes Not Reportable Absolute Eosinophils Not Reportable Absolute Basophils Not Reportable Carbonic Acid 3.69 H HCO3/H2CO3 Ratio 6:1 ABG pH 6.93 L* ABG pCO2 122.7 H* ABG pO2 66.9 L ABG HCO3 25.4 ABG O2 Saturation 76.6 L ABG Base Excess -10.3 FiO2 100% Sodium 138.0 Potassium 4.3 Chloride 103 Carbon Dioxide 22 Anion Gap 13 BUN 16 Creatinine 1.02 Est GFR ( Amer) > 60 Est GFR (Non-Af Amer) > 60 Glucose 281 H Calcium 7.7 L Ionized Calcium Kellie Magnesium Ammonia Urine Color Urine Appearance Urine pH Ur Specific [place] Urine Protein Urine Glucose (UA) Urine Ketones Urine Blood Urine Nitrite Ur Leukocyte Esterase Urine WBC (Auto) Urine RBC (Auto) 02/04/17 02/04/17 02/04/17 01:42 01:42 01:42 WBC RBC Hgb Hct MCV MCH MCHC RDW Plt Count Seg Neutrophils % Lymphocytes % Monocytes % Eosinophils % Basophils % Absolute Neutrophils Absolute Lymphocytes Absolute Monocytes Absolute Eosinophils Absolute Basophils Carbonic Acid HCO3/H2CO3 Ratio ABG pH ABG pCO2 ABG pO2 ABG HCO3 ABG O2 Saturation ABG Base Excess FiO2 Sodium Potassium Chloride Carbon Dioxide Anion Gap BUN Creatinine Est GFR ( Amer) Est GFR (Non-Af Amer) Glucose Calcium Ionized Calcium Kellie 1.13 L Magnesium 2.2 Ammonia 27.3 Urine Color Urine Appearance Urine pH Ur Specific [place] Urine Protein Urine Glucose (UA) Urine Ketones Urine Blood Urine Nitrite Ur Leukocyte Esterase Urine WBC (Auto) Urine RBC (Auto) 02/04/17 02/04/17 02/04/17 01:50 01:50 04:47 WBC 16.8 H RBC 3.39 L Hgb 11.4 L Hct 33.3 L MCV 98 H MCH 33.6 H MCHC 34.2 RDW 15.3 H Plt Count 186 Seg Neutrophils % Not Reportable Lymphocytes % Not Reportable Monocytes % Not Reportable Eosinophils % Not Reportable Basophils % Not Reportable Absolute Neutrophils Not Reportable Absolute Lymphocytes Not Reportable Absolute Monocytes Not Reportable Absolute Eosinophils Not Reportable Absolute Basophils Not Reportable Carbonic Acid 1.80 H HCO3/H2CO3 Ratio 11:1 ABG pH 7.17 L* ABG pCO2 59.7 H ABG pO2 102.1 H ABG HCO3 21.1 ABG O2 Saturation 95.9 ABG Base Excess -8.2 FiO2 3L Sodium Potassium Chloride Carbon Dioxide Anion Gap BUN Creatinine Est GFR ( Amer) Est GFR (Non-Af Amer) Glucose Calcium Ionized Calcium Kellie Magnesium Ammonia Urine Color YELLOW Urine Appearance TURBID Urine pH 5.0 Ur Specific [place] 1.014 Urine Protein 100 H Urine Glucose (UA) 150 H Urine Ketones NEGATIVE Urine Blood SMALL H Urine Nitrite NEGATIVE Ur Leukocyte Esterase MODERATE H Urine WBC (Auto) >182 Urine RBC (Auto) >182 02/04/17 02/04/17 02/04/17 04:47 05:20 06:34 WBC 14.7 H RBC 3.44 L Hgb 11.7 L Hct 33.8 L MCV 98 H MCH 34.0 H MCHC 34.6 RDW 15.2 H Plt Count 178 Seg Neutrophils % Not Reportable Lymphocytes % Not Reportable Monocytes % Not Reportable Eosinophils % Not Reportable Basophils % Not Reportable Absolute Neutrophils Not Reportable Absolute Lymphocytes Not Reportable Absolute Monocytes Not Reportable Absolute Eosinophils Not Reportable Absolute Basophils Not Reportable Carbonic Acid 0.98 L HCO3/H2CO3 Ratio 20:1 ABG pH 7.40 ABG pCO2 32.7 L ABG pO2 148.0 H ABG HCO3 19.8 L ABG O2 Saturation 98.9 H ABG Base Excess -4.2 FiO2 45% Sodium 134.4 L Potassium 3.8 Chloride 103 Carbon Dioxide 21 L Anion Gap 10 BUN 18 Creatinine 0.88 Est GFR ( Amer) > 60 Est GFR (Non-Af Amer) > 60 Glucose 285 H Calcium 7.7 L Ionized Calcium Kellie Magnesium 2.1 Ammonia Urine Color Urine Appearance Urine pH Ur Specific [place] Urine Protein Urine Glucose (UA) Urine Ketones Urine Blood Urine Nitrite Ur Leukocyte Esterase Urine WBC (Auto) Urine RBC (Auto) 02/02/17 21:45 Sputum Gram Stain - Final 02/02/17 21:45 Sputum Sputum Culture - Final 02/02/17 02/03/17 02/04/17 21:45 03:50 01:42 Troponin I 0.030 0.066 0.043 02/04/17 04:47 Troponin I 0.447 Impressions: Chest X-Ray 02/04/17 06:00 IMPRESSION: 1. Tubes and lines in appropriate radiographic position. Improved aeration of the first distal right basilar opacity. Assessment & Plan - Diagnosis (1) Acute respiratory failure with hypoxia and hypercapnia Is this a current diagnosis for this admission?: Yes Plan: The patient developed worsening respiratory failure overnight and suffered from a respiratory acidosis as noted by the retention of CO2. He subsequently was intubated and transferred to the ICU. Antibiotics were broadened out. The patient was noted to have repeat chest x-ray that showed Interval development of right basilar airspace opacity possibly representing developing pneumonia. Repeat chest x-ray at 6 AM this morning shows improved aeration of the right basilar opacity. Continue ventilation. FiO2 has been weaned down to 30%. Weaning trials as appropriate. Pulmonology has been consulted. (2) Sepsis Qualifiers: Sepsis type: sepsis due to unspecified organism Qualified Code(s): A41.9 - Sepsis, unspecified organism Is this a current diagnosis for this admission?: Yes Plan: Sepsis as evidenced by tachycardia, leukocytosis, tachypnea low oxygenation, hypotension. Sepsis is likely secondary to underlying pneumonia and given leukocyte esterase positive on the urinalysis, possibly underlying urinary tract infection. The patient has been broadened out to include Zosyn and vancomycin. For now we will continue with this. His white count is already trending back down. Lactic acid was not repeated overnight but clearly the patient was severely acidotic with a pH of 6.9. No fluids yet started. We will bolus the patient 250 cc and then start a rate at 1 25/h. (3) Pneumonia Qualifiers: Pneumonia type: due to unspecified organism Laterality: right Lung location: lower lobe of lung Qualified Code(s): J18.1 - Lobar pneumonia, unspecified organism Is this a current diagnosis for this admission?: Yes Plan: Aspiration versus community-acquired pneumonia. This would include gram positives, gram negatives and atypicals. We will add on Doxy to cover for atypicals. Patient has been broadened out to Zosyn and vancomycin overnight. The patient had a repeat chest x-ray which showed interval development of infiltrate in the right lower lung field. I question whether or not this could be an aspiration pneumonia since the day prior to admission the patient had been drinking beers and had had episodes of passing out either from his sepsis or from presumably alcohol. Or the patient may have aspirated during his acute respiratory decompensation overnight. Continue current antibiotic coverage. (4) Acute metabolic encephalopathy Is this a current diagnosis for this admission?: Yes Plan: Seem to be resolving earlier yesterday. Now I am unable to evaluate his mental status since he is sedated on propofol. (5) Diabetes mellitus Qualifiers: Diabetes mellitus type: type 2 Diabetes mellitus complication status: with unspecified complications Diabetes mellitus usp insulin use: unspecified usp insulin use status Qualified Code(s): E11.8 - Type 2 diabetes mellitus with unspecified complications Is this a current diagnosis for this admission?: Yes Plan: Continue sliding scale insulin. (6) Hypomagnesemia Is this a current diagnosis for this admission?: Yes Plan: Magnesium was replaced. Resolved. Continue to monitor. (7) Alcohol abuse Is this a current diagnosis for this admission?: Yes Plan: Yesterday the patient told me that he used to be heavy alcohol drinker. He states that he had a couple beers with a marine the day prior to coming into the hospital. He said that he had episodes of passing out but that he felt hot as well. It is unclear as to whether or not any sort of passing out had to do with alcohol consumption versus brewing sepsis. I see that Versed has been ordered but it has not been started. The patient is appropriately sedated with propofol alone. Continue to monitor. I will have some as needed IV benzodiazepine available in case it is needed. I do note that p.o. is currently available by NG. I will go ahead and discontinue the Versed since it was never started and the patient seems fully sedated on propofol alone. (8) Respiratory acidosis Is this a current diagnosis for this admission?: Yes Plan: Resolved with intubation. Continue to monitor. (9) Elevated troponin Is this a current diagnosis for this admission?: Yes Plan: I suspect the patient's elevated troponin is due to stress on the heart from respiratory failure. This far troponin is 0.4. He has been started on heparin drip. It is possible patient could have an underlying PE that caused his abrupt change in respiratory status. Continue heparin drip for now. Check cardiac echo. CT PE. - Time Total Critical Time (Minutes): 30
--- NOTE | 2017-02-04 12:43 | PDOC CONSULTATION ---
Consultation Consult Date: 02/04/17 Attending physician:: LEIDY DELGADO Consult reason:: resp failure History of Present Illness Admission Date/PCP: 02/02/17 20:39 History of Present Illness: 61-year-old male admitted for lethargy dyspnea and cough for subsequently intubated and is currently in the ICU purulent sputum aspirated from ET tube Past Medical History Cardiac Medical History: Reports: Congestive Heart Failure, Myocardial Infarction Pulmonary Medical History: Reports: Chronic Obstructive Pulmonary Disease (COPD) Endocrine Medical History: Reports: Diabetes Mellitus Type 1, Diabetes Mellitus Type 2 - insulin dependent GI Medical History: Reports: Gastroesophageal Reflux Disease Psychiatric Medical History: Reports: Depression Past Surgical History Past Surgical History: Reports: Other - unable to obtain Social History Information Source: [facility] Records Lives with: Homeless Smoking Status: Current Every Day Smoker Frequency of Alcohol Use: Occasional Hx Recreational Drug Use: No - unable to obtain Drugs: Cocaine Hx Prescription Drug Abuse: No - Advance Directive Resuscitation Status: Full Code Family History Parental Family History Reviewed: No Children Family History Reviewed: No Sibling(s) Family History Reviewed.: No Medication/Allergy Home Medications: No Home Medications 02/04/17 Allergies/Adverse Reactions: walnuts Allergy (Uncoded 11/01/16 01:37) Review of Systems ROS unobtainable: Due to endotracheal tube Physical Exam Vital Signs: Temp Pulse Resp BP Pulse Ox 97.7 F 91 18 92/57 L 99 02/04/17 07:40 02/04/17 08:29 02/04/17 08:29 02/04/17 07:40 02/04/17 08:29 Intake & Output 02/03/17 02/04/17 02/05/17 06:59 06:59 06:59 Intake Total 1295 2973 Output Total 260 1725 150 Balance 1035 1248 -150 Weight 69 kg 69.8 kg General appearance: PRESENT: no acute distress, disheveled, well-developed. ABSENT: cooperative, hard of hearing, mild distress, morbidly obese, severe distress Head exam: PRESENT: atraumatic, normocephalic Eye exam: PRESENT: conjunctiva pale. ABSENT: conjunctival injection, conjunctiva pink, EOMI, nystagmus, periorbital swelling, scleral icterus Mouth exam: PRESENT: dry mucosa, neck supple, tongue midline, other - ET tube in place. ABSENT: laceration, moist Neck exam: ABSENT: carotid bruit, JVD, lymphadenopathy, thyromegaly, tracheal deviation, tracheostomy Respiratory exam: PRESENT: decreased breath sounds, prolonged expiratory phas, rales, rhonchi, symmetrical, unlabored. ABSENT: accessory muscle use, chest wall tenderness, clear to auscultation vangie, crackles, retraction, stridor, tachypnea Cardiovascular exam: PRESENT: RRR, +S1, +S2. ABSENT: irregular rhythm, rubs Pulses: PRESENT: normal radial pulses GI/Abdominal exam: PRESENT: normal bowel sounds, soft. ABSENT: distended, guarding, mass, organolmegaly, rebound, tenderness Gentrourinary exam: PRESENT: indwelling catheter Extremities exam: ABSENT: clubbing, joint swelling Musculoskeletal exam: ABSENT: deformity, dislocation Skin exam: PRESENT: dry, warm Results Laboratory Results: 02/04/17 06:34 02/04/17 04:47 02/04/17 02/04/17 02/04/17 01:10 01:42 01:42 WBC 25.0 H D RBC 3.77 L Hgb 12.8 L Hct 37.9 MCV 100 H MCH 34.0 H MCHC 33.8 RDW 15.0 H Plt Count 273 Seg Neutrophils % Not Reportable Lymphocytes % Not Reportable Monocytes % Not Reportable Eosinophils % Not Reportable Basophils % Not Reportable Absolute Neutrophils Not Reportable Absolute Lymphocytes Not Reportable Absolute Monocytes Not Reportable Absolute Eosinophils Not Reportable Absolute Basophils Not Reportable Carbonic Acid 3.69 H HCO3/H2CO3 Ratio 6:1 ABG pH 6.93 L* ABG pCO2 122.7 H* ABG pO2 66.9 L ABG HCO3 25.4 ABG O2 Saturation 76.6 L ABG Base Excess -10.3 FiO2 100% Sodium 138.0 Potassium 4.3 Chloride 103 Carbon Dioxide 22 Anion Gap 13 BUN 16 Creatinine 1.02 Est GFR ( Amer) > 60 Est GFR (Non-Af Amer) > 60 Glucose 281 H Calcium 7.7 L Ionized Calcium Kellie Magnesium Ammonia Urine Color Urine Appearance Urine pH Ur Specific [place] Urine Protein Urine Glucose (UA) Urine Ketones Urine Blood Urine Nitrite Ur Leukocyte Esterase Urine WBC (Auto) Urine RBC (Auto) 02/04/17 02/04/17 02/04/17 01:42 01:42 01:42 WBC RBC Hgb Hct MCV MCH MCHC RDW Plt Count Seg Neutrophils % Lymphocytes % Monocytes % Eosinophils % Basophils % Absolute Neutrophils Absolute Lymphocytes Absolute Monocytes Absolute Eosinophils Absolute Basophils Carbonic Acid HCO3/H2CO3 Ratio ABG pH ABG pCO2 ABG pO2 ABG HCO3 ABG O2 Saturation ABG Base Excess FiO2 Sodium Potassium Chloride Carbon Dioxide Anion Gap BUN Creatinine Est GFR ( Amer) Est GFR (Non-Af Amer) Glucose Calcium Ionized Calcium Kellie 1.13 L Magnesium 2.2 Ammonia 27.3 Urine Color Urine Appearance Urine pH Ur Specific [place] Urine Protein Urine Glucose (UA) Urine Ketones Urine Blood Urine Nitrite Ur Leukocyte Esterase Urine WBC (Auto) Urine RBC (Auto) 02/04/17 02/04/17 02/04/17 01:50 01:50 04:47 WBC 16.8 H RBC 3.39 L Hgb 11.4 L Hct 33.3 L MCV 98 H MCH 33.6 H MCHC 34.2 RDW 15.3 H Plt Count 186 Seg Neutrophils % Not Reportable Lymphocytes % Not Reportable Monocytes % Not Reportable Eosinophils % Not Reportable Basophils % Not Reportable Absolute Neutrophils Not Reportable Absolute Lymphocytes Not Reportable Absolute Monocytes Not Reportable Absolute Eosinophils Not Reportable Absolute Basophils Not Reportable Carbonic Acid 1.80 H HCO3/H2CO3 Ratio 11:1 ABG pH 7.17 L* ABG pCO2 59.7 H ABG pO2 102.1 H ABG HCO3 21.1 ABG O2 Saturation 95.9 ABG Base Excess -8.2 FiO2 3L Sodium Potassium Chloride Carbon Dioxide Anion Gap BUN Creatinine Est GFR ( Amer) Est GFR (Non-Af Amer) Glucose Calcium Ionized Calcium Kellie Magnesium Ammonia Urine Color YELLOW Urine Appearance TURBID Urine pH 5.0 Ur Specific [place] 1.014 Urine Protein 100 H Urine Glucose (UA) 150 H Urine Ketones NEGATIVE Urine Blood SMALL H Urine Nitrite NEGATIVE Ur Leukocyte Esterase MODERATE H Urine WBC (Auto) >182 Urine RBC (Auto) >182 02/04/17 02/04/17 02/04/17 04:47 05:20 06:34 WBC 14.7 H RBC 3.44 L Hgb 11.7 L Hct 33.8 L MCV 98 H MCH 34.0 H MCHC 34.6 RDW 15.2 H Plt Count 178 Seg Neutrophils % Not Reportable Lymphocytes % Not Reportable Monocytes % Not Reportable Eosinophils % Not Reportable Basophils % Not Reportable Absolute Neutrophils Not Reportable Absolute Lymphocytes Not Reportable Absolute Monocytes Not Reportable Absolute Eosinophils Not Reportable Absolute Basophils Not Reportable Carbonic Acid 0.98 L HCO3/H2CO3 Ratio 20:1 ABG pH 7.40 ABG pCO2 32.7 L ABG pO2 148.0 H ABG HCO3 19.8 L ABG O2 Saturation 98.9 H ABG Base Excess -4.2 FiO2 45% Sodium 134.4 L Potassium 3.8 Chloride 103 Carbon Dioxide 21 L Anion Gap 10 BUN 18 Creatinine 0.88 Est GFR ( Amer) > 60 Est GFR (Non-Af Amer) > 60 Glucose 285 H Calcium 7.7 L Ionized Calcium Kellie Magnesium 2.1 Ammonia Urine Color Urine Appearance Urine pH Ur Specific [place] Urine Protein Urine Glucose (UA) Urine Ketones Urine Blood Urine Nitrite Ur Leukocyte Esterase Urine WBC (Auto) Urine RBC (Auto) 02/02/17 21:45 Sputum Gram Stain - Final 02/02/17 21:45 Sputum Sputum Culture - Final 02/02/17 02/03/17 02/04/17 21:45 03:50 01:42 Troponin I 0.030 0.066 0.043 02/04/17 04:47 Troponin I 0.447 Impressions: Chest X-Ray 02/04/17 06:00 IMPRESSION: 1. Tubes and lines in appropriate radiographic position. Improved aeration of the first distal right basilar opacity. Assessment & Plan - Diagnosis (1) Acute respiratory failure with hypoxia and hypercapnia Is this a current diagnosis for this admission?: Yes Plan: Continue supportive care oxygenate and ventilate As appropriate (2) Pneumonia Qualifiers: Pneumonia type: due to unspecified organism Laterality: right Lung location: lower lobe of lung Qualified Code(s): J18.1 - Lobar pneumonia, unspecified organism Is this a current diagnosis for this admission?: Yes Plan: Suspect aspiration but no positive cultures thus far (3) Sepsis Qualifiers: Sepsis type: sepsis due to unspecified organism Qualified Code(s): A41.9 - Sepsis, unspecified organism Is this a current diagnosis for this admission?: Yes - Time Total Critical Time (Minutes): 45
[2017-02-04] MEDS: VANCOMYCIN HCL 750 MG in DEXTROSE 5%-WATER 250 ML IV SCH ×2 (14:32→21:21)
--- NOTE | 2017-02-04 15:28 | RADIOLOGY REPORT (SQ) ---
EXAM DESCRIPTION: CTA CHEST COMPLETED DATE/TIME: 02/04/2017 2:04 pm REASON FOR STUDY: acute hypoxemic hypercapneic resp failure COMPARISON: Chest x-ray 02/04/2017 TECHNIQUE: CT scan of the chest performed using helical scanning technique with dynamic intravenous contrast injection. Images reviewed with lung, soft tissue and bone windows. Reconstructed coronal and sagittal MPR images reviewed. Additional 3 dimensional post-processing performed to develop Maximal Intensity Projection images (UT P). All images stored on PACS. All CT scanners at this facility use dose modulation, iterative reconstruction, and/or weight based d osing when appropriate to reduce radiation dose to as low as reasonably achievable (ALARA). [facility]: Dose Right [facility]: CareDose [facility]: Dose Right [facility]: Teradose 4D [facility]: Xtellus CONTRAST TYPE AND DOSE: contrast/concentration: Isovue 370.00 mg/ml; Total Contrast Delivered: 61.0 ml; Total Saline Delivered: 106.0 ml Contrast bolus optimized for the pulmonary arteries. Not diagnostic for the aorta. RENAL FUNCTION: Creatinine 0.9 BUN 18 RADIATION DOSE: CT Rad equipment meets quality standard of care and radiation dose reduction techniq ues were employed. CTDIvol: 13.2 - 14.2 mGy. DLP: 519 mGy-cm. . LIMITATIONS: None. FINDINGS: LUNGS AND PLEURA: Bilateral moderate pleural effusions are present. There is opacificatio n in the left base with some air bronchograms suggesting atelectasis versus infiltrate. AORTA AND GREAT VESSELS: No aneurysm. Contrast bolus not optimized for the aorta. HEART: No pericardial effusion. PULMONARY ARTERIES: No emboli visualized in the main pulmonary arteries or the segmental branches. HILAR AND MEDIASTINAL STRUCTURES: No identified masses or abnormal nodes. HARDWARE: Endotracheal tube. NG tube. UPPER ABDOMEN: No significant findings. Limited exam. THYROID AND OTHER SOFT TISSUES: No masses. No adenopathy. BONES: No acute or significant finding. 3D MIPS: Confirm above findings. OTHER: No other significant finding. IMPRESSION: 1. There is no evidence of pulmonary emboli. 2. Small a moderate bilateral pleural effusions. 3. Left lower lobe pneumonia versus atelectasis. COMMENT: Quality ID # [id number]: Final reports with documentation of one or more dose reduction techniques (e.g., Automated exposure control, adjustment of the mA and/or kV according to patient size, use of iterative reconstruction technique) TECHNICAL DOCUMENTATION: JOB ID: [id number] [employer]- All Rights Reserved
[2017-02-04] MEDS: NORMAL SALINE 1000 ML 1,000 ML IV PRN (17:37)
[2017-02-04] MEDS: NORMAL SALINE 1000 ML 1,000 ML with POTASSIUM CHLORIDE 20 MEQ, MAGNESIUM SULFATE 8 MEQ,... IV SCH ×5 (17:44)
[2017-02-05] MEDS: IPRATROPIUM/ALBUTEROL 0.5-2.5 MG/3 ML AMPUL NEB SCH ×4 (02:00→20:48)
[2017-02-05] MEDS: PROPOFOL 100 ML IV PRN ×6 (02:10→23:46)
[2017-02-05] MEDS: NORMAL SALINE 1000 ML 1,000 ML IV PRN (03:38)
[2017-02-05] MEDS: PIPERACILLIN SODIUM/TAZOBACTAM 4.5 GM in NORMAL SALINE 100 ML IV SCH ×4 (05:29→23:46)
[2017-02-05] MEDS: LANSOPRAZOLE 15 MG TAB.RAP.DR PO SCH (05:30)
[2017-02-05] MEDS: DIAZEPAM 5 MG TABLET NG SCH ×4 (05:30→23:48)
[2017-02-05] MEDS: METHYLPREDNISOLONE INJ 125 MG/2 ML SDV IV SCH ×3 (05:30→21:41)
[2017-02-05] MEDS: GABAPENTIN 300 MG CAPSULE PO SCH ×3 (05:30→21:41)
[2017-02-05 05:32] LABS: ARTERIAL BLOOD BASE EXCESS -1.4 mmol/L; ARTERIAL BLOOD H2CO3 0.85 mmol/L (1.05-1.35); ARTERIAL BLOOD HCO3 20.8 mmol/L (20-26); ARTERIAL BLOOD O2 SATURATION 97.6 % (94-98); ARTERIAL BLOOD PCO2 28.3 mmHg (35-45); ARTERIAL BLOOD PH 7.49 (7.35-7.45); ARTERIAL BLOOD PO2 90.8 mmHg (80-100); ARTERIAL BLOOD TOTAL CO2 21.7 mmol/L (23-27)
[2017-02-05 05:38] LABS: ARTERIAL BLOOD FIO2 21%
[2017-02-05 06:29] LABS: ABSOLUTE LYMPHOCYTES (AUTO) 0.8 10^3/uL (0.5-4.7); ABSOLUTE MONOCYTES (AUTO) 0.3 10^3/uL (0.1-1.4); ABSOLUTE NEUT (AUTO) 8.7 10^3/uL (1.7-8.2); BASOPHILS % (AUTO) 0.1 % (0-2); HEMATOCRIT 35.6 % (37.9-51.0); HEMOGLOBIN 12.7 g/dL (13.5-17.0); LYMPHOCYTES % (AUTO) 8.4 % (13-45); MEAN CORPUSCULAR HEMOGLOBIN 34.8 pg (27.0-33.4); MEAN CORPUSCULAR HGB CONC 35.7 g/dL (32.0-36.0); MEAN CORPUSCULAR VOLUME 98 fl (80-97); MONOCYTES % (AUTO) 2.7 % (3-13); PLATELET COUNT 173 10^3/uL (150-450); RED BLOOD COUNT 3.65 10^6/uL (4.35-5.55); RED CELL DISTRIBUTION WIDTH 15.5 % (11.5-14.0); SEGMENTED NEUTROPHILS % (AUTO) 88.8 % (42-78); TOTAL CELLS COUNTED % (AUTO) 100 %; WHITE BLOOD COUNT 9.8 10^3/uL (4.0-10.5)
[2017-02-05] MEDS: INSULIN LISPRO 100 UNIT/ML 3 ML VIAL SUBCUT PRN ×2 (06:48→23:47)
[2017-02-05 06:52] LABS: ANION GAP 5 (5-19); BLOOD UREA NITROGEN 14 mg/dL (7-20); CALCIUM 8.2 mg/dL (8.4-10.2); CARBON DIOXIDE 23 mmol/L (22-30); CHLORIDE 108 mmol/L (98-107); GLUCOSE 187 mg/dL (75-110); MAGNESIUM 2.3 mg/dL (1.6-2.3); PHOSPHORUS 2.6 mg/dL (2.5-4.5); SODIUM 135.6 mmol/L (137-145)
[2017-02-05 06:55] LABS: VANCOMYCIN,TROUGH 12.5 ug/mL (5.0-20.0)
[2017-02-05 06:58] LABS: PREALBUMIN 18.1 mg/dL (17.6-36.0)
--- NOTE | 2017-02-05 07:35 | RADIOLOGY REPORT (SQ) ---
EXAM DESCRIPTION: CHEST SINGLE VIEW CLINICAL HISTORY: 61 years, Male, resp[ failure COMPARISON: 02/04/2017 FINDINGS: Prominent interstitium, normal cardiac silhouette, adequate endotracheal and enteric tubes, and intact bony thorax. IMPRESSION: No significant interval change. 2011 [employer]- All Rights Reserved
--- NOTE | 2017-02-05 08:04 | EKG REPORT ---
SEVERITY:- ABNORMAL ECG - SINUS RHYTHM RIGHT AXIS DEVIATION BORDERLINE T ABNORMALITIES, INFERIOR LEADS PROLONGED QT INTERVAL : Confirmed by: Familia West MD 05-Feb-2017 08:03:12
[2017-02-05] MEDS: VANCOMYCIN HCL 750 MG in DEXTROSE 5%-WATER 250 ML IV SCH ×3 (08:09→22:38)
[2017-02-05] MEDS: HEPARIN SODIUM,PORCINE/D5W 25,000 UNIT/250 ML RTUINJ IV PRN (08:12)
[2017-02-05] MEDS ORDERED: NORMAL SALINE 1000 ML 1,000 ML IV PRN (08:37)
--- NOTE | 2017-02-05 08:46 | PDOC PROGRESS REPORT ---
Subjective Progress Note for:: 02/05/17 Subjective:: This is a follow-up visit for sepsis and pneumonia. The patient was admitted 3 days ago after being found unresponsive. He is homeless according to the patient he been having hot and cold flashes. Apparently he had also been drinking 2 days prior to admission as well. Patient was admitted with pneumonia and started on empiric Rocephin and azithromycin. He was doing well initially until 02/04 at 1 in the morning when the patient had respiratory failure. Patient had to be immediately transferred to the ICU and immediately intubated. Repeat chest x-ray showed interval development of a right lower lobe infiltrate. It is unclear as to whether or not this represents pneumonia that he had when he came in since the initial chest x-ray was clear. He may have aspirated either out of the streets before he was admitted (and an infiltrate simply had not had an opportunity to manifest itself) or he aspirated during his respiratory event. At any rate, the pH was found to be 6.9 with a PCO2 in the 120s. Since the patient has been in the unit he is been receiving chest PT daily. And his antibiotics have been broadened out. CT of the chest to rule out PE was done and was negative. Troponins have been elevated and unfortunately, this patient has suffered an end STEMI most likely secondary to his hypoxic/hypercapnic respiratory event. He is currently anticoagulated on a heparin drip. NG tube was placed and were beginning tube feeds today. Reason For Visit: PNEUMONIA Physical Exam Vital Signs: Temp Pulse Resp BP Pulse Ox 97.5 F 88 18 128/71 H 99 02/05/17 07:44 02/05/17 08:09 02/05/17 08:09 02/05/17 07:44 02/05/17 08:09 Intake & Output 02/04/17 02/05/17 02/06/17 06:59 06:59 06:59 Intake Total 2973 3668 Output Total 1725 2175 95 Balance 1248 1493 -95 Weight 69.8 kg 75 kg Vent: VT 550. Respiratory rate 18. FiO2 21%. PEEP 8 Lines: 3 peripheral IVs. Drips: Propofol, heparin Antibiotics: Zosyn and vancomycin GENERAL: This is a well-developed and nourished white male resting In bed ventilated receiving chest PT HEENT: ET tube in place HEART: Regular rate according to the telemetry. Difficult to auscultate with percussive therapy. LUNGS: course anteriorly bilaterally with equal rise and fall of the chest. Percussive therapy underway. ABDOMEN: Soft, nontender, nondistended with hypoactive bowel sounds EXTREMETIES: No clubbing, cyanosis or edema. 2+ peripheral pulses bilaterally. NEURO: Intubated and sedated on propofol Results Laboratory Results: 02/05/17 06:19 02/05/17 06:19 02/05/17 02/05/17 02/05/17 05:25 06:19 06:19 WBC 9.8 RBC 3.65 L Hgb 12.7 L Hct 35.6 L MCV 98 H MCH 34.8 H MCHC 35.7 RDW 15.5 H Plt Count 173 Seg Neutrophils % 88.8 H Lymphocytes % 8.4 L Monocytes % 2.7 L Eosinophils % 0.0 Basophils % 0.1 Absolute Neutrophils 8.7 H Absolute Lymphocytes 0.8 Absolute Monocytes 0.3 Absolute Eosinophils 0.0 Absolute Basophils 0.0 Carbonic Acid 0.85 L HCO3/H2CO3 Ratio 24:1 ABG pH 7.49 H ABG pCO2 28.3 L ABG pO2 90.8 ABG HCO3 20.8 ABG O2 Saturation 97.6 ABG Base Excess -1.4 FiO2 21% Sodium 135.6 L Potassium 4.0 Chloride 108 H Carbon Dioxide 23 Anion Gap 5 BUN 14 Creatinine 0.71 Est GFR ( Amer) > 60 Est GFR (Non-Af Amer) > 60 Glucose 187 H Calcium 8.2 L Phosphorus 2.6 Magnesium 2.3 Prealbumin 18.1 02/02/17 02/03/17 02/04/17 21:45 03:50 01:42 Troponin I 0.030 0.066 0.043 02/04/17 02/04/17 02/04/17 04:47 12:32 19:25 Troponin I 0.447 1.640 1.740 02/05/17 01:21 Troponin I 1.360 Impressions: Chest/Abdomen CTA 02/04/17 00:00 IMPRESSION: 1. There is no evidence of pulmonary emboli. 2. Small a moderate bilateral pleural effusions. 3. Left lower lobe pneumonia versus atelectasis. Chest X-Ray 02/05/17 06:00 IMPRESSION: No significant interval change. 2010 [employer]- All Rights Reserved Assessment & Plan - Diagnosis (1) Acute respiratory failure with hypoxia and hypercapnia Is this a current diagnosis for this admission?: Yes Plan: Continue chest PT, continue antibiotic therapy. Wean ventilator as tolerated. The patient is a respiratory failure secondary to underlying pneumonia. CT PE was negative. (2) Sepsis Qualifiers: Sepsis type: sepsis due to unspecified organism Qualified Code(s): A41.9 - Sepsis, unspecified organism Is this a current diagnosis for this admission?: Yes Plan: Sepsis as evidenced by tachycardia, leukocytosis, tachypnea low oxygenation, hypotension. Sepsis is likely secondary to underlying pneumonia and given leukocyte esterase positive on the urinalysis, possibly underlying urinary tract infection. The patient has been broadened out to include Zosyn and vancomycin. For now we will continue with this. His white count has normal. The patient became a bit hypotensive yesterday. He was given a 250 cc bolus and started on 125 rate. We will go ahead and back down to 75 cc an hour. The patient also gets a banana bag each evening. The patient is receiving stress dose steroids (3) Pneumonia Qualifiers: Pneumonia type: due to unspecified organism Laterality: right Lung location: lower lobe of lung Qualified Code(s): J18.1 - Lobar pneumonia, unspecified organism Is this a current diagnosis for this admission?: Yes Plan: Aspiration versus community-acquired pneumonia. This would include gram positives, gram negatives and atypicals. We will add on Doxy to cover for atypicals. Patient has been broadened out to Zosyn and vancomycin overnight. The patient had a repeat chest x-ray which showed interval development of infiltrate in the right lower lung field. I question whether or not this could be an aspiration pneumonia since the day prior to admission the patient had been drinking beers and had had episodes of passing out either from his sepsis or from presumably alcohol. Or the patient may have aspirated during his acute respiratory decompensation overnight. Continue current antibiotic coverage. (4) Acute metabolic encephalopathy Is this a current diagnosis for this admission?: Yes Plan: This seemed to be improved on the floor prior to respiratory collapse. Patient was oriented x3. Now I am unable to evaluate his mental status since he is sedated on propofol. (5) Diabetes mellitus Qualifiers: Diabetes mellitus type: type 2 Diabetes mellitus complication status: with unspecified complications Diabetes mellitus fpc insulin use: unspecified intermediate teacher insulin use status Qualified Code(s): E11.8 - Type 2 diabetes mellitus with unspecified complications Is this a current diagnosis for this admission?: Yes Plan: Continue sliding scale insulin. Patient is currently intubated and n.p.o. status. Dietary consult was placed for recommendations for tube feeds and we will go ahead and initiate this now. Continue every 6 hours blood sugar checks. (6) Hypomagnesemia Is this a current diagnosis for this admission?: Yes Plan: Magnesium was replaced. Resolved. Continue to monitor. (7) Alcohol abuse Is this a current diagnosis for this admission?: Yes Plan: the patient told me that he used to be heavy alcohol drinker. He stated that he had a couple beers with a marine the day prior to coming into the hospital. He said that he had episodes of passing out but that he felt hot as well. It is unclear as to whether or not any sort of passing out had to do with alcohol consumption versus brewing sepsis. Continue to monitor for signs and symptoms of alcohol withdrawal. I will have some as needed IV benzodiazepine available, in case it is needed. I do note that p.o. is currently available by . (8) Respiratory acidosis Is this a current diagnosis for this admission?: Yes Plan: Resolved with intubation. Continue to monitor. (9) NSTEMI (non-ST elevated myocardial infarction) Is this a current diagnosis for this admission?: Yes Plan: I suspect this is a type II NE secondary to acute respiratory failure with severe respiratory acidosis necessitating rapid sequence intubation. Continue heparin drip. As able we will give him aspirin and beta-leslie. The patient at this point could not tolerate a cardiac cath based on his respiratory status. This can be revisited after the patient is over this initial insult. - Time Time Spent with patient: 35 or more minutes Total Critical Time (Minutes): 35 - Inpatient Certification Based on my medical assessment, after consideration of the patient's comorbidities, presenting symptoms, or acuity I expect that the services needed warrant INPATIENT care.: Yes Medical Necessity: Need Close Monitoring Due to Risk of Patient Decompensation
[2017-02-05] MEDS: GUAIFENESIN 600 MG TABLET.SA PO SCH ×2 (11:02→21:42)
[2017-02-05] MEDS: ASPIRIN 81 MG TABLET, ENT COATED PO SCH (11:03)
[2017-02-05] MEDS: FOLIC ACID 1 MG TABLET NG SCH (11:03)
[2017-02-05] MEDS: THIAMINE HCL 100 MG TABLET NG SCH (11:03)
[2017-02-05] MEDS: TAMSULOSIN HCL 0.4 MG CAP.SR.24H PO SCH (11:07)
--- NOTE | 2017-02-05 13:48 | XCELERA REPORT ---
[address] [address] Transthoracic Echocardiogram Report Name: TAMMY RICHARDS Age: 61 yrs Gender: Male : 1955 Patient Status: Inpatient Patient Location: ICU^[id number]^A Study Date: 02/04/2017 12:54 PM Height: 69 in Weight: 153 lb BSA: 1.8 m2 Procedure: A two-dimensional transthoracic echocardiogram with color flow and Doppler was performed. The study was technically difficult with many images being suboptimal in quality. The study was technically limited with all images being suboptimal in quality. Reason For Study: elevated troponin History: elevated troponin. Ordering Physician: SHELBY GRANT Performed By: Milagros Lee Interpretation Summary elevated troponin The left ventricle is mildly to moderately dilated. There is normal left ventricular wall thickness. LV EF is 36% Left ventricular systolic function is moderately reduced. Doppler measurements suggest normal left ventricular diastolic function There is moderate global hypokinesis of the left ventricle. There is no thrombus. The right ventricle is grossly normal size. The left atrial size is normal. There is no evidence of mitral valve prolapse. There is no vegetation seen on the mitral valve. There is no mitral valve stenosis. There is a trace amount of mitral regurgitation There is no aortic valvular vegetation. There is no aortic valve stenosis There is no LVOT obstruction. No aortic regurgitation is present. There is no tricuspid stenosis. There is a trace amount of tricuspid regurgitation There is no pulmonic valvular regurgitation. RVSP is 36 mm of Hg , with RA mean of 10. There is mild pulmonary hypertension by echo There is no pericardial effusion. MMode/2D Measurements & Calculations RVDd: 2.8 cm LVIDd: 5.4 cm FS: 13.6 % Ao root diam: 2.7 cm IVSd: 0.63 cm LVIDs: 4.7 cm EDV(Teich): 141.4 ml LVPWd: 0.56 cmESV(Teich): 100.7 mlAo root area: 5.9 cm2 EF(Teich): 28.8 % LVOT diam: 2.0 cm LVOT area: 3.3 cm2 Doppler Measurements & Calculations MV E max tamie: MV dec slope: Ao V2 max: LV V1 max P.9 cm/sec 959.2 cm/sec2 111.3 cm/sec 3.0 mmHg MV A max tamie: MV dec time: Ao max PG: LV V1 max: 69.5 cm/sec 0.12 sec 5.0 mmHg 86.2 cm/sec MV E/A: 1.7 WILMER(V,D): 2.5 cm2 PA V2 max: TR max tamie: 79.7 cm/sec 231.6 cm/sec PA max P.5 mmHg TR max P.9 mmHg Left Ventricle The left ventricle is mildly to moderately dilated. There is normal left ventricular wall thickness. LV EF is 36%. Left ventricular systolic function is moderately reduced. Doppler measurements suggest normal left ventricular diastolic function. There is moderate global hypokinesis of the left ventricle. There is no thrombus. Right Ventricle The right ventricle is grossly normal size. The right ventricle is not well visualized secondary to technical limitations. Atria The right atrium is normal. The left atrial size is normal. Mitral Valve There is no evidence of mitral valve prolapse. There is no vegetation seen on the mitral valve. There is no mitral valve stenosis. There is a trace amount of mitral regurgitation. Aortic Valve There is no aortic valvular vegetation. There is no aortic valve stenosis. There is no LVOT obstruction. No aortic regurgitation is present. Tricuspid Valve There is no tricuspid stenosis. There is a trace amount of tricuspid regurgitation. RVSP is 36 mm of Hg , with RA mean of 10. There is mild pulmonary hypertension by echo. Pulmonic Valve There is no pulmonic valvular stenosis. There is no pulmonic valvular regurgitation. Great Vessels The aortic root is normal size. Effusions There is no pericardial effusion. : SHELBY GRANT > Tamiko Leyva
--- NOTE | 2017-02-05 14:17 | PDOC PROGRESS REPORT ---
Subjective Progress Note for:: 02/05/17 Subjective:: Intubated and sedated Reason For Visit: PNEUMONIA Physical Exam Vital Signs: Temp Pulse Resp BP Pulse Ox 97.5 F 88 18 128/71 H 99 02/05/17 07:44 02/05/17 08:09 02/05/17 08:09 02/05/17 07:44 02/05/17 08:09 Intake & Output 02/04/17 02/05/17 02/06/17 06:59 06:59 06:59 Intake Total 2973 3668 Output Total 1725 2175 95 Balance 1248 1493 -95 Weight 69.8 kg 75 kg General appearance: PRESENT: no acute distress, disheveled, obese, well- developed, well-nourished. ABSENT: cooperative, hard of hearing, mild distress , morbidly obese, severe distress Head exam: PRESENT: atraumatic, normocephalic Eye exam: PRESENT: conjunctiva pale, EOMI. ABSENT: conjunctival injection, conjunctiva pink, nystagmus, periorbital swelling Mouth exam: PRESENT: dry mucosa, neck supple, tongue midline, other - ET tube in place. ABSENT: laceration, moist Neck exam: PRESENT: tracheal deviation, tracheostomy. ABSENT: carotid bruit, JVD, lymphadenopathy, thyromegaly Respiratory exam: PRESENT: decreased breath sounds, prolonged expiratory phas, rales, rhonchi, symmetrical, unlabored. ABSENT: accessory muscle use, chest wall tenderness, clear to auscultation vangie, crackles, retraction, stridor, tachypnea Cardiovascular exam: PRESENT: RRR, +S1, +S2. ABSENT: irregular rhythm, rubs Pulses: PRESENT: normal radial pulses GI/Abdominal exam: PRESENT: normal bowel sounds, soft. ABSENT: distended, guarding, mass, organolmegaly, rebound, tenderness Extremities exam: ABSENT: clubbing, joint swelling Musculoskeletal exam: ABSENT: deformity, dislocation Skin exam: PRESENT: dry, warm Results Laboratory Results: 02/05/17 06:19 02/05/17 06:19 02/05/17 02/05/17 02/05/17 05:25 06:19 06:19 WBC 9.8 RBC 3.65 L Hgb 12.7 L Hct 35.6 L MCV 98 H MCH 34.8 H MCHC 35.7 RDW 15.5 H Plt Count 173 Seg Neutrophils % 88.8 H Lymphocytes % 8.4 L Monocytes % 2.7 L Eosinophils % 0.0 Basophils % 0.1 Absolute Neutrophils 8.7 H Absolute Lymphocytes 0.8 Absolute Monocytes 0.3 Absolute Eosinophils 0.0 Absolute Basophils 0.0 Carbonic Acid 0.85 L HCO3/H2CO3 Ratio 24:1 ABG pH 7.49 H ABG pCO2 28.3 L ABG pO2 90.8 ABG HCO3 20.8 ABG O2 Saturation 97.6 ABG Base Excess -1.4 FiO2 21% Sodium 135.6 L Potassium 4.0 Chloride 108 H Carbon Dioxide 23 Anion Gap 5 BUN 14 Creatinine 0.71 Est GFR ( Amer) > 60 Est GFR (Non-Af Amer) > 60 Glucose 187 H Calcium 8.2 L Phosphorus 2.6 Magnesium 2.3 Prealbumin 18.1 02/02/17 02/03/17 02/04/17 21:45 03:50 01:42 Troponin I 0.030 0.066 0.043 02/04/17 02/04/17 02/04/17 04:47 12:32 19:25 Troponin I 0.447 1.640 1.740 02/05/17 01:21 Troponin I 1.360 Impressions: Chest/Abdomen CTA 02/04/17 00:00 IMPRESSION: 1. There is no evidence of pulmonary emboli. 2. Small a moderate bilateral pleural effusions. 3. Left lower lobe pneumonia versus atelectasis. Chest X-Ray 02/05/17 06:00 IMPRESSION: No significant interval change. 2010 [employer]- All Rights Reserved Assessment & Plan - Diagnosis (1) Acute respiratory failure with hypoxia and hypercapnia Is this a current diagnosis for this admission?: Yes Plan: Continue supportive care oxygenate and ventilate As appropriate Labs- All tests 24 hr 02/02/17 02/03/17 02/04/17 18:15 03:50 01:10 WBC 15.0 H 7.0 ABG pH 6.93 L* ABG pCO2 ABG pO2 FiO2 02/04/17 02/04/17 02/04/17 01:42 01:50 04:47 WBC 25.0 H D 16.8 H ABG pH 7.17 L* ABG pCO2 ABG pO2 FiO2 02/04/17 02/04/17 02/05/17 05:20 06:34 05:25 WBC 14.7 H ABG pH 7.40 7.49 H ABG pCO2 28.3 L ABG pO2 90.8 FiO2 21% 02/05/17 06:19 WBC 9.8 ABG pH ABG pCO2 ABG pO2 FiO2 (2) Pneumonia Qualifiers: Pneumonia type: due to unspecified organism Laterality: right Lung location: lower lobe of lung Qualified Code(s): J18.1 - Lobar pneumonia, unspecified organism Is this a current diagnosis for this admission?: Yes Plan: Suspect aspiration but no positive cultures thus far (3) Sepsis Qualifiers: Sepsis type: sepsis due to unspecified organism Qualified Code(s): A41.9 - Sepsis, unspecified organism Is this a current diagnosis for this admission?: Yes - Time Total Critical Time (Minutes): 45
[2017-02-05] MEDS: FENTANYL CITRATE INJ/PF 100 MCG/2 ML AMPUL IV PRN (15:39)
[2017-02-05] MEDS: NORMAL SALINE 1000 ML 1,000 ML with POTASSIUM CHLORIDE 20 MEQ, MAGNESIUM SULFATE 8 MEQ,... IV SCH ×5 (17:50)
[2017-02-06] MEDS: IPRATROPIUM/ALBUTEROL 0.5-2.5 MG/3 ML AMPUL NEB SCH ×4 (02:57→21:13)
[2017-02-06 04:08] LABS: HEMATOCRIT 36.5 % (37.9-51.0); HEMOGLOBIN 12.5 g/dL (13.5-17.0); MEAN CORPUSCULAR HEMOGLOBIN 33.7 pg (27.0-33.4); MEAN CORPUSCULAR HGB CONC 34.2 g/dL (32.0-36.0); MEAN CORPUSCULAR VOLUME 99 fl (80-97); PLATELET COUNT 145 10^3/uL (150-450); RED CELL DISTRIBUTION WIDTH 15.6 % (11.5-14.0)
[2017-02-06] MEDS: PROPOFOL 100 ML IV PRN (04:19)
[2017-02-06 04:20] LABS: ANION GAP 5 (5-19); BLOOD UREA NITROGEN 16 mg/dL (7-20); CALCIUM 7.9 mg/dL (8.4-10.2); CARBON DIOXIDE 20 mmol/L (22-30); CHLORIDE 109 mmol/L (98-107); GLUCOSE 194 mg/dL (75-110); MAGNESIUM 2.5 mg/dL (1.6-2.3); PHOSPHORUS 3.3 mg/dL (2.5-4.5); POTASSIUM 4.9 mmol/L (3.6-5.0); SODIUM 134.1 mmol/L (137-145)
[2017-02-06] MEDS: VANCOMYCIN HCL 750 MG in DEXTROSE 5%-WATER 250 ML IV SCH ×3 (05:35→21:47)
[2017-02-06] MEDS: LANSOPRAZOLE 15 MG TAB.RAP.DR PO SCH (05:36)
[2017-02-06] MEDS: DIAZEPAM 5 MG TABLET NG SCH ×4 (05:36→23:21)
[2017-02-06] MEDS: GABAPENTIN 300 MG CAPSULE PO SCH ×3 (05:36→21:49)
[2017-02-06] MEDS: PIPERACILLIN SODIUM/TAZOBACTAM 4.5 GM in NORMAL SALINE 100 ML IV SCH ×4 (05:37→23:20)
[2017-02-06] MEDS: METHYLPREDNISOLONE INJ 125 MG/2 ML SDV IV SCH ×3 (05:37→21:47)
[2017-02-06 05:49] LABS: ARTERIAL BLOOD BASE EXCESS -2.4 mmol/L; ARTERIAL BLOOD HCO3 21.2 mmol/L (20-26); ARTERIAL BLOOD O2 SATURATION 95.3 % (94-98); ARTERIAL BLOOD PCO2 33.3 mmHg (35-45); ARTERIAL BLOOD PH 7.42 (7.35-7.45); ARTERIAL BLOOD PO2 73.8 mmHg (80-100); ARTERIAL BLOOD TOTAL CO2 22.2 mmol/L (23-27)
[2017-02-06 05:50] LABS: APPEARANCE,URINE SLIGHTLY-CLOUDY; BILIRUBIN,URINE NEGATIVE (NEGATIVE); COLOR,URINE YELLOW; GLUCOSE, URINE 150 mg/dL (NEGATIVE); KETONES,URINE NEGATIVE (NEGATIVE); LEUKOCYTE ESTERASE,URINE MODERATE (NEGATIVE); NITRITE,URINE NEGATIVE (NEGATIVE); PROTEIN,URINE NEGATIVE (NEGATIVE); UROBILINOGEN,URINE NEGATIVE mg/dL (<2.0)
[2017-02-06 05:56] LABS: ARTERIAL BLOOD FIO2 21%
--- NOTE | 2017-02-06 07:12 | RADIOLOGY REPORT (SQ) ---
EXAM DESCRIPTION: CHEST SINGLE VIEW CLINICAL HISTORY: 61 years, Male, resp failure COMPARISON: 02/05/2017. LIMITATIONS: None. FINDINGS: Mild mixed interstitial and airspace opacity, small left lower lobar atelectasis or scar, normal cardiac silhouette, adequate endotracheal/enteric tubes, and intact bony thorax. IMPRESSION: No significant interval change. 2011 [employer]- All Rights Reserved
[2017-02-06 08:17] LABS: INTERNATIONAL RATION (INR) 1.04; PROTHROMBIN TIME 14.3 SEC (11.4-15.4)
[2017-02-06 08:18] LABS: PARTIAL THROMBOPLASTIN TIME 78.6 SEC (23.5-35.8)
--- NOTE | 2017-02-06 10:18 | PDOC PROGRESS REPORT ---
Subjective Progress Note for:: 02/06/17 Subjective:: f/u for resp failure, encephalopathy and pneumonia summary of stay thus far: per dr castro- "This is a follow-up visit for sepsis and pneumonia. The patient was admitted 3 days ago after being found unresponsive. He is homeless according to the patient he been having hot and cold flashes. Apparently he had also been drinking 2 days prior to admission as well. Patient was admitted with pneumonia and started on empiric Rocephin and azithromycin. He was doing well initially until 02/04 at 1 in the morning when the patient had respiratory failure. Patient had to be immediately transferred to the ICU and immediately intubated. Repeat chest x-ray showed interval development of a right lower lobe infiltrate. It is unclear as to whether or not this represents pneumonia that he had when he came in since the initial chest x-ray was clear. He may have aspirated either out of the streets before he was admitted (and an infiltrate simply had not had an opportunity to manifest itself) or he aspirated during his respiratory event. At any rate, the pH was found to be 6.9 with a PCO2 in the 120s. Since the patient has been in the unit he is been receiving chest PT daily. And his antibiotics have been broadened out. CT of the chest to rule out PE was done and was negative. Troponins have been elevated and unfortunately, this patient has suffered an end STEMI most likely secondary to his hypoxic/hypercapnic respiratory event. He is currently anticoagulated on a heparin drip. NG tube was placed and were beginning tube feeds yesterday." I inherited his care this morning and he remains intubated on mechanical ventilation and on diprivan for sedation. He is minimally arousable and unable to provide a review of systems her medical history. He does stir with stimulation and moves all 4 extremities spontaneously. He is on PRVC/SIMV with a rate of 14, tidal volume 500, pressure support of 10, PEEP of 5 and FiO2 21%. ROS: Unable to obtain due to sedation and mechanical ventilation. Reason For Visit: PNEUMONIA; acute hypoxic respiratory failure; sepsis; encephalopathy. Physical Exam Vital Signs: Temp Pulse Resp BP Pulse Ox 96.6 F L 74 14 113/74 95 02/06/17 06:00 02/06/17 03:12 02/06/17 06:00 02/06/17 05:49 02/06/17 06:00 Intake & Output 02/05/17 02/06/17 02/07/17 06:59 06:59 06:59 Intake Total 3668 3667 Output Total 2175 9695 Balance 1493 8632 Weight 75 kg 76.3 kg Vent settings noted above. 3 peripheral IVs. Drips include heparin and propofol. Current antibiotics include Zosyn and vancomycin. General: Well-developed, well-nourished white male currently lying in bed calm and sedated, minimally arousable to stimulation, seems to be tolerating the vent without difficulty. HEENT: Pupils are equal and sluggish; oral mucosa is moist with OG tube in place ; ET tube in good position with follow-up in the tube, trachea midline. Cardiac: Regular rate and rhythm on the monitor without ectopy, normal S1, S2; high-pitched decrescendo 2/6 murmur heard best at the left second intercostal space; PMI nondisplaced. Respiratory: Coarse breath sounds throughout but no obvious wheezes or rhonchi. Symmetric chest wall rise without respiratory distress or accessory muscle use , no air hunger evident. Abdomen: Soft, nondistended, non-tympanitic, no grimace to deep palpation. No bowel movement noted since admission. Diminished bowel sounds, largely absent. Extremities: General edema of the hands and wrists 1+, no edema about the lower extremities; muscle tone is normal. Neuro: Deep tendon reflexes at the patellar diminished 1+ but symmetric, there is no ankle clonus, or wrist clonus. Gag and blink reflex intact. Skin: Pale, cool and moist to the touch. Results Laboratory Results: 02/06/17 03:55 02/06/17 03:55 02/06/17 02/06/17 02/06/17 03:55 03:55 05:30 WBC 9.0 RBC 3.70 L Hgb 12.5 L Hct 36.5 L MCV 99 H MCH 33.7 H MCHC 34.2 RDW 15.6 H Plt Count 145 L Carbonic Acid 1.00 L HCO3/H2CO3 Ratio 21:1 ABG pH 7.42 ABG pCO2 33.3 L ABG pO2 73.8 L ABG HCO3 21.2 ABG O2 Saturation 95.3 ABG Base Excess -2.4 FiO2 21% Sodium 134.1 L Potassium 4.9 Chloride 109 H Carbon Dioxide 20 L Anion Gap 5 BUN 16 Creatinine 0.66 Est GFR ( Amer) > 60 Est GFR (Non-Af Amer) > 60 Glucose 194 H Calcium 7.9 L Phosphorus 3.3 Magnesium 2.5 H Urine Color Urine Appearance Urine pH Ur Specific [place] Urine Protein Urine Glucose (UA) Urine Ketones Urine Blood Urine Nitrite Ur Leukocyte Esterase Urine WBC (Auto) Urine RBC (Auto) 02/06/17 05:30 WBC RBC Hgb Hct MCV MCH MCHC RDW Plt Count Carbonic Acid HCO3/H2CO3 Ratio ABG pH ABG pCO2 ABG pO2 ABG HCO3 ABG O2 Saturation ABG Base Excess FiO2 Sodium Potassium Chloride Carbon Dioxide Anion Gap BUN Creatinine Est GFR ( Amer) Est GFR (Non-Af Amer) Glucose Calcium Phosphorus Magnesium Urine Color YELLOW Urine Appearance SLIGHTLY-CLOUDY Urine pH 5.0 Ur Specific [place] 1.030 Urine Protein NEGATIVE Urine Glucose (UA) 150 H Urine Ketones NEGATIVE Urine Blood NEGATIVE Urine Nitrite NEGATIVE Ur Leukocyte Esterase MODERATE H Urine WBC (Auto) 40 Urine RBC (Auto) 37 02/02/17 02/03/17 02/04/17 21:45 03:50 01:42 Troponin I 0.030 0.066 0.043 02/04/17 02/04/17 02/04/17 04:47 12:32 19:25 Troponin I 0.447 1.640 1.740 02/05/17 02/06/17 01:21 03:55 Troponin I 1.360 0.574 Impressions: Chest/Abdomen CTA 02/04/17 00:00 IMPRESSION: 1. There is no evidence of pulmonary emboli. 2. Small a moderate bilateral pleural effusions. 3. Left lower lobe pneumonia versus atelectasis. Chest X-Ray 02/06/17 06:00 IMPRESSION: No significant interval change. 2010 [employer]- All Rights Reserved Status: Image reviewed by me - Agree with radiology. Assessment & Plan - Diagnosis (1) Pneumonia Qualifiers: Pneumonia type: due to unspecified organism Laterality: right Lung location: lower lobe of lung Qualified Code(s): J18.1 - Lobar pneumonia, unspecified organism Is this a current diagnosis for this admission?: Yes Plan: Improved but not back to baseline. Possibly aspiration. Continue current antibiotics. I discussed case with Dr. Mckinney this morning and he anticipates extubation later today. Sputum culture reviewed, nondiagnostic. (2) NSTEMI (non-ST elevated myocardial infarction) Is this a current diagnosis for this admission?: Yes Plan: Stable. Troponin trending down. Likely secondary to a hypoxic stress from the above. Continue medical management for now. When his condition is stabilized he may need further risk stratification and testing. (3) Acute respiratory failure with hypoxia and hypercapnia Is this a current diagnosis for this admission?: Yes Plan: Improved and near baseline. Likely secondary aspiration pneumonia, compounded by metabolic encephalopathy. See above. (4) Acute metabolic encephalopathy Is this a current diagnosis for this admission?: Yes Plan: Unclear etiology but likely multifactorial, currently difficult to assess given sedation and mechanical ventilation. Once he is extubated will reevaluate. Continue thiamine given his history of alcohol abuse. (5) Alcohol abuse Is this a current diagnosis for this admission?: Yes Plan: As above. Will likely need CIWA protocol upon extubation. 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 Hemoglobin A1c is 6.4. Will add low-dose basal insulin and continue to cover with sliding scale. May need additional dose adjustment once he is extubated and tolerating a diet. (8) Hypomagnesemia Is this a current diagnosis for this admission?: Yes Plan: Resolved. (9) Sepsis Qualifiers: Sepsis type: sepsis due to unspecified organism Qualified Code(s): A41.9 - Sepsis, unspecified organism Is this a current diagnosis for this admission?: Yes Plan: Resolved. - Time Time Spent with patient: 35 or more minutes Medications reviewed and adjusted accordingly: Yes
[2017-02-06] MEDS ORDERED: DEXAMETHASONE SOD PHOSPHATE INJ 4 MG/1 ML VIAL ONE (11:13)
[2017-02-06] MEDS: HEPARIN SODIUM,PORCINE/D5W 25,000 UNIT/250 ML RTUINJ IV PRN (11:16)
[2017-02-06] MEDS: GUAIFENESIN 600 MG TABLET.SA PO SCH ×2 (11:19→21:49)
[2017-02-06] MEDS: ASPIRIN 81 MG TABLET, ENT COATED PO SCH (11:19)
[2017-02-06] MEDS: FOLIC ACID 1 MG TABLET NG SCH (11:19)
[2017-02-06] MEDS: TAMSULOSIN HCL 0.4 MG CAP.SR.24H PO SCH (11:19)
[2017-02-06] MEDS: THIAMINE HCL 100 MG TABLET NG SCH (11:19)
--- NOTE | 2017-02-06 13:31 | PDOC PROGRESS REPORT ---
Subjective Progress Note for:: 02/06/17 Subjective:: Intubated and sedated Reason For Visit: PNEUMONIA Physical Exam Vital Signs: Temp Pulse Resp BP Pulse Ox 96.6 F L 74 14 113/74 95 02/06/17 06:00 02/06/17 03:12 02/06/17 06:00 02/06/17 05:49 02/06/17 06:00 Intake & Output 02/05/17 02/06/17 02/07/17 06:59 06:59 06:59 Intake Total 3668 3667 Output Total 2175 1245 Balance 1493 2422 Weight 75 kg 76.3 kg General appearance: PRESENT: no acute distress, cooperative, disheveled, well- developed. ABSENT: hard of hearing, mild distress, morbidly obese, obese, severe distress Head exam: PRESENT: atraumatic, normocephalic Eye exam: PRESENT: conjunctiva pale, EOMI. ABSENT: conjunctival injection, conjunctiva pink, nystagmus, periorbital swelling, scleral icterus Mouth exam: PRESENT: dry mucosa, neck supple, tongue midline, other - ET tube in place. ABSENT: laceration, moist Neck exam: ABSENT: carotid bruit, JVD, lymphadenopathy, thyromegaly, tracheal deviation, tracheostomy Respiratory exam: PRESENT: decreased breath sounds, prolonged expiratory phas, rales, rhonchi, symmetrical, unlabored. ABSENT: accessory muscle use, chest wall tenderness, clear to auscultation vangie, crackles, retraction, stridor, tachypnea Cardiovascular exam: PRESENT: RRR, +S1, +S2. ABSENT: irregular rhythm, rubs Pulses: PRESENT: normal radial pulses GI/Abdominal exam: PRESENT: normal bowel sounds, soft. ABSENT: distended, guarding, mass, organolmegaly, rebound, tenderness Extremities exam: ABSENT: clubbing, joint swelling Musculoskeletal exam: ABSENT: deformity, dislocation Neurological exam: ABSENT: alert, awake Skin exam: PRESENT: dry, warm Results Laboratory Results: 02/06/17 03:55 02/06/17 03:55 02/06/17 02/06/17 02/06/17 03:55 03:55 05:30 WBC 9.0 RBC 3.70 L Hgb 12.5 L Hct 36.5 L MCV 99 H MCH 33.7 H MCHC 34.2 RDW 15.6 H Plt Count 145 L Carbonic Acid 1.00 L HCO3/H2CO3 Ratio 21:1 ABG pH 7.42 ABG pCO2 33.3 L ABG pO2 73.8 L ABG HCO3 21.2 ABG O2 Saturation 95.3 ABG Base Excess -2.4 FiO2 21% Sodium 134.1 L Potassium 4.9 Chloride 109 H Carbon Dioxide 20 L Anion Gap 5 BUN 16 Creatinine 0.66 Est GFR ( Amer) > 60 Est GFR (Non-Af Amer) > 60 Glucose 194 H Calcium 7.9 L Phosphorus 3.3 Magnesium 2.5 H Urine Color Urine Appearance Urine pH Ur Specific [place] Urine Protein Urine Glucose (UA) Urine Ketones Urine Blood Urine Nitrite Ur Leukocyte Esterase Urine WBC (Auto) Urine RBC (Auto) 02/06/17 05:30 WBC RBC Hgb Hct MCV MCH MCHC RDW Plt Count Carbonic Acid HCO3/H2CO3 Ratio ABG pH ABG pCO2 ABG pO2 ABG HCO3 ABG O2 Saturation ABG Base Excess FiO2 Sodium Potassium Chloride Carbon Dioxide Anion Gap BUN Creatinine Est GFR ( Amer) Est GFR (Non-Af Amer) Glucose Calcium Phosphorus Magnesium Urine Color YELLOW Urine Appearance SLIGHTLY-CLOUDY Urine pH 5.0 Ur Specific [place] 1.030 Urine Protein NEGATIVE Urine Glucose (UA) 150 H Urine Ketones NEGATIVE Urine Blood NEGATIVE Urine Nitrite NEGATIVE Ur Leukocyte Esterase MODERATE H Urine WBC (Auto) 40 Urine RBC (Auto) 37 02/02/17 02/03/17 02/04/17 21:45 03:50 01:42 Troponin I 0.030 0.066 0.043 02/04/17 02/04/17 02/04/17 04:47 12:32 19:25 Troponin I 0.447 1.640 1.740 02/05/17 02/06/17 01:21 03:55 Troponin I 1.360 0.574 Impressions: Chest/Abdomen CTA 02/04/17 00:00 IMPRESSION: 1. There is no evidence of pulmonary emboli. 2. Small a moderate bilateral pleural effusions. 3. Left lower lobe pneumonia versus atelectasis. Chest X-Ray 02/06/17 06:00 IMPRESSION: No significant interval change. 2010 [employer]- All Rights Reserved Assessment & Plan - Diagnosis (1) Acute respiratory failure with hypoxia and hypercapnia Is this a current diagnosis for this admission?: Yes Plan: Improving FiO2 remains elevated minute ventilation respiratory rate have improved (2) Pneumonia Qualifiers: Pneumonia type: due to unspecified organism Laterality: right Lung location: lower lobe of lung Qualified Code(s): J18.1 - Lobar pneumonia, unspecified organism Is this a current diagnosis for this admission?: Yes Plan: Suspect aspiration but no positive cultures thus far (3) Sepsis Qualifiers: Sepsis type: sepsis due to unspecified organism Qualified Code(s): A41.9 - Sepsis, unspecified organism Is this a current diagnosis for this admission?: Yes - Time Total Critical Time (Minutes): 40
[2017-02-06] MEDS: INSULIN GLARGINE,HUM.REC.ANLOG 300 UNIT/3 ML INSULN.PEN SUBCUT SCH (15:29)
[2017-02-06] MEDS: LEVALBUTEROL HCL NEB 1.25 MG/3 ML AMPUL NEB PRN (18:40)
[2017-02-06] MEDS: NORMAL SALINE 1000 ML 1,000 ML with POTASSIUM CHLORIDE 20 MEQ, MAGNESIUM SULFATE 8 MEQ,... IV SCH ×5 (18:43)
[2017-02-06] MEDS ORDERED: SCOPOLAMINE HYDROBROMIDE 1.5 MG PATCH.TD72 TD PRN (19:20)
[2017-02-06] MEDS ORDERED: FUROSEMIDE INJ/PF 20 MG/2 ML SDV IV ONE (19:45)
[2017-02-06] MEDS: FENTANYL CITRATE INJ/PF 100 MCG/2 ML AMPUL IV PRN (22:17)
[2017-02-07] MEDS: IPRATROPIUM/ALBUTEROL 0.5-2.5 MG/3 ML AMPUL NEB SCH ×4 (02:23→20:01)
[2017-02-07 04:41] LABS: ALANINE AMINOTRANSFERASE 27 U/L (21-72); ALKALINE PHOSPHATASE 54 U/L (38-126); ANION GAP 6 (5-19); ASPARTATE AMINO TRANSFERASE 14 U/L (17-59); BILIRUBIN,DIRECT 0.2 mg/dL (0.0-0.4); BILIRUBIN,TOTAL 0.2 mg/dL (0.2-1.3); BLOOD UREA NITROGEN 20 mg/dL (7-20); CALCIUM 8.3 mg/dL (8.4-10.2); CARBON DIOXIDE 25 mmol/L (22-30); CHLORIDE 107 mmol/L (98-107); GLUCOSE 212 mg/dL (75-110); MAGNESIUM 2.3 mg/dL (1.6-2.3); POTASSIUM 4.3 mmol/L (3.6-5.0); SODIUM 137.6 mmol/L (137-145); TOTAL PROTEIN 5.2 g/dL (6.3-8.2)
[2017-02-07] MEDS: VANCOMYCIN HCL 750 MG in DEXTROSE 5%-WATER 250 ML IV SCH ×3 (05:42→21:41)
[2017-02-07] MEDS: PIPERACILLIN SODIUM/TAZOBACTAM 4.5 GM in NORMAL SALINE 100 ML IV SCH ×4 (05:42→23:51)
[2017-02-07] MEDS: FUROSEMIDE INJ/PF 20 MG/2 ML SDV IV SCH ×2 (05:43→17:25)
[2017-02-07] MEDS: METHYLPREDNISOLONE INJ 125 MG/2 ML SDV IV SCH ×3 (05:44→21:38)
[2017-02-07] MEDS: LANSOPRAZOLE 15 MG TAB.RAP.DR PO SCH (05:46)
[2017-02-07] MEDS: DIAZEPAM 5 MG TABLET NG SCH (05:46)
[2017-02-07] MEDS: GABAPENTIN 300 MG CAPSULE PO SCH ×3 (05:46→21:39)
[2017-02-07 05:50] LABS: ARTERIAL BLOOD BASE EXCESS 0.8 mmol/L; ARTERIAL BLOOD H2CO3 1.28 mmol/L (1.05-1.35); ARTERIAL BLOOD HCO3 25.7 mmol/L (20-26); ARTERIAL BLOOD O2 SATURATION 97.6 % (94-98); ARTERIAL BLOOD PCO2 42.5 mmHg (35-45); ARTERIAL BLOOD PO2 101.5 mmHg (80-100)
[2017-02-07 05:51] LABS: ARTERIAL BLOOD FIO2 2L
[2017-02-07] MEDS: INSULIN LISPRO 100 UNIT/ML 3 ML VIAL SUBCUT PRN (06:24)
--- NOTE | 2017-02-07 08:48 | RADIOLOGY REPORT (SQ) ---
EXAM DESCRIPTION: CHEST SINGLE VIEW COMPLETED DATE/TIME: 02/07/2017 6:42 am REASON FOR STUDY: resp fail COMPARISON: CT angio chest 02/04/2017 AP chest 02/04/2017, 02/05/2017, 02/06/2017 EXAM PARAMETERS: NUMBER OF VIEWS: One view. TECHNIQUE: Single frontal radiographic view of the chest acquired. RADIATION DOSE: NA LIMITATIONS: None. FINDINGS: Endotracheal tube and nasogastric tubes of been removed. LUNGS AND PLEURA: Minimal right basilar atelectasis. Lungs are otherwise well inflated and clear. No gross pleural effusion. No pneumothorax. MEDIASTINUM AND HILAR STRUCTURES: No masses. Contour normal. HEART AND VASCULAR STRUCTURES: Heart normal in size. Normal vasculature. BONES: No acute findings. HARDWARE: None in the chest. OTHER: No other significant finding. IMPRESSION: Extubated. Nasogastric tube removed. Minimal right basilar airspace disease atelectasis versus pneumonia TECHNICAL DOCUMENTATION: JOB ID: [id number] [employer]- All Rights Reserved
[2017-02-07] MEDS: LEVALBUTEROL HCL NEB 1.25 MG/3 ML AMPUL NEB PRN ×2 (10:01→19:57)
[2017-02-07] MEDS: THIAMINE HCL 100 MG TABLET NG SCH (11:26)
[2017-02-07] MEDS: ASPIRIN 81 MG TABLET, ENT COATED PO SCH (11:26)
[2017-02-07] MEDS: TAMSULOSIN HCL 0.4 MG CAP.SR.24H PO SCH (11:26)
[2017-02-07] MEDS: GUAIFENESIN 600 MG TABLET.SA PO SCH ×2 (11:26→21:40)
[2017-02-07] MEDS: METOPROLOL TARTRATE 25 MG TABLET PO SCH ×2 (11:26→21:39)
[2017-02-07] MEDS: FOLIC ACID 1 MG TABLET NG SCH (11:26)
[2017-02-07] MEDS: ENOXAPARIN SODIUM INJ 80 MG/0.8 ML DISP.SYRIN SUBCUT SCH ×2 (12:19→21:42)
[2017-02-07] MEDS: INSULIN GLARGINE,HUM.REC.ANLOG 300 UNIT/3 ML INSULN.PEN SUBCUT SCH (12:19)
--- NOTE | 2017-02-07 18:00 | PDOC PROGRESS REPORT ---
Subjective Progress Note for:: 02/07/17 Subjective:: f/u for resp failure, encephalopathy and pneumonia summary of stay thus far: per dr castro- "This is a follow-up visit for sepsis and pneumonia. The patient was admitted 3 days ago after being found unresponsive. He is homeless according to the patient he been having hot and cold flashes. Apparently he had also been drinking 2 days prior to admission as well. Patient was admitted with pneumonia and started on empiric Rocephin and azithromycin. He was doing well initially until 02/04 at 1 in the morning when the patient had respiratory failure. Patient had to be immediately transferred to the ICU and immediately intubated. Repeat chest x-ray showed interval development of a right lower lobe infiltrate. It is unclear as to whether or not this represents pneumonia that he had when he came in since the initial chest x-ray was clear. He may have aspirated either out of the streets before he was admitted (and an infiltrate simply had not had an opportunity to manifest itself) or he aspirated during his respiratory event. At any rate, the pH was found to be 6.9 with a PCO2 in the 120s. Since the patient has been in the unit he is been receiving chest PT daily. And his antibiotics have been broadened out. CT of the chest to rule out PE was done and was negative. Troponins have been elevated and unfortunately, this patient has suffered an end STEMI most likely secondary to his hypoxic/hypercapnic respiratory event. He is currently anticoagulated on a heparin drip. NG tube was placed and were beginning tube feeds yesterday." I inherited his care Saturday and he was successfully extubated later that day. He has done well from a respiratory standpoint he still requires supplemental O2 he is remained off BiPAP through the night. His thick heavy secretions noted and is a bit hoarse this morning. He is also very lethargic and will only stay awake for a few moments at a time before drifting back to sleep. His answers are inconsistent and therefore unreliable. ROS: Unreliable due to patient's mental state. Reason For Visit: PNEUMONIA Physical Exam Vital Signs: Temp Pulse Resp BP Pulse Ox 97.9 F 72 22 H 135/69 H 100 02/07/17 16:08 02/07/17 16:08 02/07/17 16:08 02/07/17 16:08 02/07/17 16:08 Intake & Output 02/06/17 02/07/17 02/08/17 06:59 06:59 06:59 Intake Total 3662026 Output Total 1240 8082 1050 Balance 4339 -5305 -1058 Weight 76.3 kg 75.5 kg General: Well-developed, well-nourished white male currently lying in bed calm and drowsy. HEENT: Pupils are equal and sluggish; oral mucosa is moist, trachea midline. thick congested cough noted but no pooling of secretions and no stridor Cardiac: Regular rate and rhythm on the monitor without ectopy, normal S1, S2; high-pitched decrescendo 2/6 murmur heard best at the left second intercostal space -Unchanged; PMI nondisplaced. Respiratory: Coarse breath sounds throughout but no obvious wheezes or rhonchi. Symmetric chest wall rise without respiratory distress or accessory muscle use , no air hunger evident. Abdomen: Soft, nondistended, non-tympanitic, no grimace to deep palpation. Diminished bowel sounds, largely absent. Extremities: General edema of the hands and wrists 1+, no edema about the lower extremities; muscle tone is normal. Neuro: Deep tendon reflexes at the patellar diminished 1+ but symmetric, there is no ankle clonus, or wrist clonus. Skin: Pale, cool and moist to the touch. Results Laboratory Results: 02/06/17 03:55 02/07/17 03:47 02/07/17 02/07/17 03:47 05:30 Carbonic Acid 1.28 HCO3/H2CO3 Ratio 20:1 ABG pH 7.40 ABG pCO2 42.5 ABG pO2 101.5 H ABG HCO3 25.7 ABG O2 Saturation 97.6 ABG Base Excess 0.8 FiO2 2L Sodium 137.6 Potassium 4.3 Chloride 107 Carbon Dioxide 25 Anion Gap 6 BUN 20 Creatinine 0.73 Est GFR ( Amer) > 60 Est GFR (Non-Af Amer) > 60 Glucose 212 H Calcium 8.3 L Magnesium 2.3 Total Bilirubin 0.2 AST 14 L ALT 27 Alkaline Phosphatase 54 Total Protein 5.2 L Albumin 3.0 L 02/04/17 01:50 Fisher Catheter Urine Culture - Final Enterococcus Faecalis(Group D) C.albicans/C.dubliniensis 12/16/17 12/17/17 12/18/17 21:45 03:50 01:42 Troponin I 0.030 0.066 0.043 02/04/17 02/04/17 02/04/17 04:47 12:32 19:25 Troponin I 0.447 1.640 1.740 02/05/17 02/06/17 01:21 03:55 Troponin I 1.360 0.574 Impressions: Chest X-Ray 02/07/17 06:00 IMPRESSION: Extubated. Nasogastric tube removed. Minimal right basilar airspace disease atelectasis versus pneumonia Assessment & Plan - Diagnosis (1) Pneumonia Qualifiers: Pneumonia type: due to unspecified organism Laterality: right Lung location: lower lobe of lung Qualified Code(s): J18.1 - Lobar pneumonia, unspecified organism Is this a current diagnosis for this admission?: Yes Plan: Improved but not back to baseline. Possibly aspiration. Continue current antibiotics. Sputum culture reviewed, nondiagnostic. (2) NSTEMI (non-ST elevated myocardial infarction) Is this a current diagnosis for this admission?: Yes Plan: Stable. Troponin trending down. Likely secondary to a hypoxic stress from the above. Continue medical management for now. When his condition is stabilized he may need further risk stratification and testing. Transition from heparin to Lovenox. (3) Acute respiratory failure with hypoxia and hypercapnia Is this a current diagnosis for this admission?: Yes Plan: Improved and near baseline. Likely secondary aspiration pneumonia, compounded by metabolic encephalopathy. See above. (4) Acute metabolic encephalopathy Is this a current diagnosis for this admission?: Yes Plan: Unclear etiology but likely multifactorial. Continue thiamine given his history of alcohol abuse. (5) Alcohol abuse Is this a current diagnosis for this admission?: Yes (6) DVT prophylaxis Is this a current diagnosis for this admission?: Yes (7) Diabetes mellitus Qualifiers: Diabetes mellitus type: type 2 Diabetes mellitus complication status: with unspecified complications Diabetes mellitus fpc insulin use: unspecified fpc insulin use status Qualified Code(s): E11.8 - Type 2 diabetes mellitus with unspecified complications Is this a current diagnosis for this admission?: Yes (8) Hypomagnesemia Is this a current diagnosis for this admission?: Yes (9) Sepsis Qualifiers: Sepsis type: sepsis due to unspecified organism Qualified Code(s): A41.9 - Sepsis, unspecified organism Is this a current diagnosis for this admission?: Yes - Time Time Spent with patient: 25-34 minutes
[2017-02-07] MEDS: ACETYLCYSTEINE 20% SOLN 800 MG/4 ML VIAL.NEB NEB SCH (19:57)
[2017-02-07] MEDS: ATORVASTATIN CALCIUM 80 MG TABLET PO SCH (21:40)
--- NOTE | 2017-02-07 22:48 | PROGRESS NOTE E ---
Progress Note NAME: TAMMY RICHARDS : 1955 AGE: 61Y DATE: 02/07/2017 ROOM: 308 SUBJECTIVE: The patient has been extubated. The patient is confused and not able to give a good history. There is no arrhythmia seen. The patient states that he has chest pain which seems to be reproducible by compressing on the patient's front of the sternum. There is edema of the upper extremities which is mild but none in the lower extremities. The patient seems to have orthopnea. No other symptomatically can be elucidated from the patient, since he is confused. OBJECTIVE: GENERAL: On examination, the patient is of frail guild and appears to be chronically ill and disheveled. VITAL SIGNS: He is afebrile with a temperature of 97.2 degrees Fahrenheit, pulse is 88 beats per minute, blood pressure 136/84, respirations are 15 per minute, O2 saturations on 2 L are 100%. HEAD: Atraumatic, normocephalic. EYES: Pupils are equal, round, regular, and reactive to light and accommodation. External ocular movements are normal. There is no conjunctival pallor. EARS, NOSE, THROAT: Negative. NECK: Supple. There is no JVD. Carotids are equal. There is no bruit. There is no goiter. There is no lymphadenopathy. Trachea central. LUNGS: A few dry crackles in the right lower lobe with diminished breath sounds. There is diminished air entry and prolonged expiration as well as a few scattered rhonchi. HEART: S1 and S2 are heard. There is no S3 gallop. There is no S4 gallop. There is a systolic murmur in the left sternal border on the apex without radiation. There is no rub. ABDOMEN: Soft, nontender. There is no hepatosplenomegaly. Bowel sounds are well heard. EXTREMITIES: Femorals are diminished. There are no femoral bruits. Leg pulses are diminished. There is no DVT or cellulitis. There is no pedal edema. There is no cyanosis or clubbing. CENTRAL NERVOUS SYSTEM: The patient is conscious, confused but moves all 4 extremities. PSYCHIATRIC: The patient is not able to participate in the psychiatric evaluation but the patient does move all 4 extremities. DIAGNOSTIC STUDIES: The patient's chest x-ray shows minimal infiltrate in the right lower lobe. INTAKE AND OUTPUT: The patient's 24-hour intake is 2026. Output is 3175. The patient's sodium is 137.6, potassium is 4.3, chloride is 107, CO2 is 25. The patient's BUN is 20, creatinine 0.73, GFR is greater than 60, glucose is 212, his calcium is 8.3. Liver function tests are normal with a low AST of 14. Yesterday, his troponin I came down to 0.574. His total protein is 5.2, albumin is 3.0. His white count is 9000; hemoglobin is 12.5; hematocrit is 36.5; and his platelet count is 145,000. His ABGs show a pH of 7.40, pCO2 is good at 42.5, pO2 is good at 101.5 and his O2 sats are 97.6% on FiO2 of 2 L. Note that the patient had an echocardiogram on 02/04/2017 which showed moderately depressed LV ejection fraction at 35% with a mild to moderately dilated LV. There is no significant stenotic or regurgitant lesions. There is no pericardial effusion. There is mild pulmonary hypertension with a right ventricular systolic pressure of 36 mmHg. IMPRESSION: 1. Pneumonia. Continue antibiotics. Continue oxygen. Continue respiratory treatments. It seems to be getting better. 2. Elevated troponin I. This is definitely not a non-ST elevation CA. This is type 2 CA due to supply demand mismatch. In view of the patient's cardiomyopathy, compounded by acute respiratory failure with hypoxemia, hypercapnia, pneumonia, and sepsis. Hence, would not treat this as a non-ST elevation CA. Would recommend stopping the patient's Lovenox at 1 mg SQ q. 12 hours and change it to DVT prophylaxis doses but will not do this until I discuss this with the hospitalist. 3. Acute respiratory failure with hypoxemia and hypercapnia. 4. Metabolic encephalopathy. Patient still confused. The patient has a history of ETOH abuse. 5. History of ETOH abuse. There is no evidence for delirium tremens at present. 6. Diabetes mellitus. Blood sugar still not very well controlled. 7. CARDIOMYOPATHY. 8. COPD. 9. Sepsis. RECOMMENDATION: 1. As mentioned earlier, continue nasal oxygen, respiration treatments, antibiotics, and Mucomyst, continue Lasix at 20 mg IV q. 12 hours. Would recommend changing this to p.o. Lasix, continue antidiabetic treatment, continue steroids and taper them off. 2. For the elevated troponin I, would recheck the patient's EKG and troponin I in the a.m. This is definitely not a non-ST elevation CA. Hence, would stop the full dose Lovenox. In view of the patient's cardiomyopathy and patient not able to give a good history, once the patient recovers from his pneumonia and is stable, then would recommend IV Lexiscan Cardiolite stress test to see if the patient indeed does have coronary artery disease. 3. For the cardiomyopathy, would start the patient on Toprol XL and also would start the patient on Entresto at a small dose. Would change the patient's Lopressor to Toprol XL 25 mg p.o. daily and increase as tolerated. Continue aspirin. Would recheck the patient's EKG and troponin I in the a.m. TIME SPENT: Thirty-five minutes spent on this patient with more than 50% of the time spent on direct patient care. His medications have been reviewed and adjusted and the medications changed, as mentioned earlier. Discussed with the hospitalist as to the management plans and with the other care giving providers on the case. Medical decision making is of high complexity. We will follow with you. DICTATING PHYSICIAN: KARSON CASTILLO M.D. [id number] AMAN#: [id number] ID: [id number] JOB#: [id number] ACCT: [id number] cc: > [facility]
[2017-02-08] MEDS: IPRATROPIUM/ALBUTEROL 0.5-2.5 MG/3 ML AMPUL NEB SCH ×4 (02:01→20:46)
[2017-02-08 04:58] LABS: HEMATOCRIT 36.8 % (37.9-51.0); HEMOGLOBIN 12.6 g/dL (13.5-17.0); MEAN CORPUSCULAR HEMOGLOBIN 33.1 pg (27.0-33.4); MEAN CORPUSCULAR HGB CONC 34.1 g/dL (32.0-36.0); MEAN CORPUSCULAR VOLUME 97 fl (80-97); PLATELET COUNT 173 10^3/uL (150-450); RED CELL DISTRIBUTION WIDTH 15.3 % (11.5-14.0); WHITE BLOOD COUNT 11.2 10^3/uL (4.0-10.5)
[2017-02-08] MEDS: PIPERACILLIN SODIUM/TAZOBACTAM 4.5 GM in NORMAL SALINE 100 ML IV SCH ×3 (05:12→17:21)
[2017-02-08] MEDS: GABAPENTIN 300 MG CAPSULE PO SCH ×3 (05:13→22:47)
[2017-02-08] MEDS: LANSOPRAZOLE 15 MG TAB.RAP.DR PO SCH (05:13)
[2017-02-08] MEDS: METHYLPREDNISOLONE INJ 125 MG/2 ML SDV IV SCH ×3 (05:13→22:34)
[2017-02-08] MEDS: FUROSEMIDE INJ/PF 20 MG/2 ML SDV IV SCH ×2 (05:13→17:20)
[2017-02-08 05:22] LABS: INTERNATIONAL RATION (INR) 1.01
[2017-02-08 05:23] LABS: ANION GAP 9 (5-19); BLOOD UREA NITROGEN 22 mg/dL (7-20); CALCIUM 8.5 mg/dL (8.4-10.2); CARBON DIOXIDE 27 mmol/L (22-30); CHLORIDE 101 mmol/L (98-107); GLUCOSE 126 mg/dL (75-110); MAGNESIUM 2.2 mg/dL (1.6-2.3); POTASSIUM 3.9 mmol/L (3.6-5.0); SODIUM 137.4 mmol/L (137-145)
[2017-02-08] MEDS: VANCOMYCIN HCL 750 MG in DEXTROSE 5%-WATER 250 ML IV SCH ×3 (06:18→22:20)
[2017-02-08 06:28] LABS: APPEARANCE,URINE CLEAR; BILIRUBIN,URINE NEGATIVE (NEGATIVE); COLOR,URINE YELLOW; GLUCOSE, URINE NEGATIVE (NEGATIVE); KETONES,URINE NEGATIVE (NEGATIVE); LEUKOCYTE ESTERASE,URINE NEGATIVE (NEGATIVE); NITRITE,URINE NEGATIVE (NEGATIVE); PROTEIN,URINE NEGATIVE (NEGATIVE); URINE SPECIFIC GRAVITY 1.015; UROBILINOGEN,URINE NEGATIVE mg/dL (<2.0)
[2017-02-08] MEDS: ACETYLCYSTEINE 20% SOLN 800 MG/4 ML VIAL.NEB NEB SCH ×2 (08:25→20:45)
--- NOTE | 2017-02-08 10:55 | PDOC PROGRESS REPORT ---
Subjective Progress Note for:: 02/08/17 Subjective:: f/u for resp failure, encephalopathy and pneumonia summary of stay thus far: per dr castro- "This is a follow-up visit for sepsis and pneumonia. The patient was admitted 3 days ago after being found unresponsive. He is homeless according to the patient he been having hot and cold flashes. Apparently he had also been drinking 2 days prior to admission as well. Patient was admitted with pneumonia and started on empiric Rocephin and azithromycin. He was doing well initially until 02/04 at 1 in the morning when the patient had respiratory failure. Patient had to be immediately transferred to the ICU and immediately intubated. Repeat chest x-ray showed interval development of a right lower lobe infiltrate. It is unclear as to whether or not this represents pneumonia that he had when he came in since the initial chest x-ray was clear. He may have aspirated either out of the streets before he was admitted (and an infiltrate simply had not had an opportunity to manifest itself) or he aspirated during his respiratory event. At any rate, the pH was found to be 6.9 with a PCO2 in the 120s. Since the patient has been in the unit he is been receiving chest PT daily. And his antibiotics have been broadened out. CT of the chest to rule out PE was done and was negative. Troponins have been elevated and unfortunately, this patient has suffered an end STEMI most likely secondary to his hypoxic/hypercapnic respiratory event. He is currently anticoagulated on a heparin drip. NG tube was placed and were beginning tube feeds yesterday." I inherited his care Saturday and he was successfully extubated later that day. He has done well from a respiratory standpoint he still requires supplemental O2. He is much more alert today and interactive with fewer secretions that are easier for him to clear. He remains a bit hoarse. His answers are more appropriate and he knows is in [facility] for breathing issues. He does not remember being on mechanical ventilation. He reports chronic use of a wheelchair after a severe bout of pneumonia requiring prolonged hospitalization in the ICU. ROS: He reports neck muscle pain, sore throat, hunger, general weakness worse from baseline, breathlessness with minimal exertion. He denies chest pain, palpitations, fever, chills, nausea, vomiting, diarrhea. He is unsure when he last moved his bowels. All systems reviewed, see above, remaining systems negative. Reason For Visit: PNEUMONIA Physical Exam Vital Signs: Temp Pulse Resp BP Pulse Ox 97.7 F 77 22 H 141/75 H 97 02/08/17 07:24 02/08/17 08:25 02/08/17 08:25 02/08/17 07:24 02/08/17 08:25 Intake & Output 02/07/17 02/08/17 02/09/17 06:59 06:59 06:59 Intake Total 2026 1081 Output Total 3174 3848 Balance -1148 -2333 Weight 75.5 kg 73 kg General: Well-developed, well-nourished white male currently lying in bed calm and cooperative. HEENT: oral mucosa is moist, trachea midline. no stridor. Neck muscles supple tender to the touch; no lymphadenopathy. Cardiac: Regular rate and rhythm, normal S1, S2; high-pitched decrescendo 2/6 murmur heard best at the left second intercostal space -Unchanged Respiratory: Coarse breath sounds throughout right greater than left but no obvious wheezes or rhonchi. Symmetric chest wall rise without respiratory distress or accessory muscle use Abdomen: Soft, nondistended, non-tympanitic, no grimace to deep palpation. Diminished bowel sounds Extremities: General edema of the hands and wrists 1+, no edema about the lower extremities; muscle tone is normal but he is profoundly weak and only able to lift his arms and legs against gravity Neuro: Deep tendon reflexes at the patellar diminished 1+ but symmetric, there is no ankle clonus, or wrist clonus. Skin: Pale, cool and moist to the touch. Results Laboratory Results: 02/08/17 04:20 02/08/17 04:20 02/08/17 02/08/17 02/08/17 04:20 04:20 06:04 WBC 11.2 H RBC 3.80 L Hgb 12.6 L Hct 36.8 L MCV 97 MCH 33.1 MCHC 34.1 RDW 15.3 H Plt Count 173 Sodium 137.4 Potassium 3.9 Chloride 101 Carbon Dioxide 27 Anion Gap 9 BUN 22 H Creatinine 0.70 Est GFR ( Amer) > 60 Est GFR (Non-Af Amer) > 60 Glucose 126 H Calcium 8.5 Magnesium 2.2 Urine Color YELLOW Urine Appearance CLEAR Urine pH 5.0 Ur Specific [place] 1.015 Urine Protein NEGATIVE Urine Glucose (UA) NEGATIVE Urine Ketones NEGATIVE Urine Blood MODERATE H Urine Nitrite NEGATIVE Ur Leukocyte Esterase NEGATIVE Urine WBC (Auto) 9 Urine RBC (Auto) 25 02/04/17 01:50 Fisher Catheter Urine Culture - Final Enterococcus Faecalis(Group D) C.albicans/C.dubliniensis 02/02/17 02/03/17 02/04/17 21:45 03:50 01:42 Troponin I 0.030 0.066 0.043 02/04/17 02/04/17 02/04/17 04:47 12:32 19:25 Troponin I 0.447 1.640 1.740 02/05/17 02/06/17 01:21 03:55 Troponin I 1.360 0.574 Assessment & Plan - Diagnosis (1) Pneumonia Qualifiers: Pneumonia type: due to unspecified organism Laterality: right Lung location: lower lobe of lung Qualified Code(s): J18.1 - Lobar pneumonia, unspecified organism Is this a current diagnosis for this admission?: Yes Plan: Improved but not back to baseline. Possibly aspiration. Continue current antibiotics. Sputum culture reviewed, nondiagnostic. (2) NSTEMI (non-ST elevated myocardial infarction) Is this a current diagnosis for this admission?: Yes Plan: Stable. Type II GA likely secondary to a hypoxic stress from the above. Continue medical management for now. When his condition is stabilized he may need further risk stratification and testing. After discussion with Dr. Leyva there is no indication for full dose anticoagulation with Lovenox. (3) Acute respiratory failure with hypoxia and hypercapnia Is this a current diagnosis for this admission?: Yes Plan: Improved and near baseline. Likely secondary aspiration pneumonia, compounded by metabolic encephalopathy. See above. (4) Acute metabolic encephalopathy Is this a current diagnosis for this admission?: Yes Plan: Unclear etiology but likely multifactorial and beginning to clear. Continue thiamine given his history of alcohol abuse. (5) Alcohol abuse Is this a current diagnosis for this admission?: Yes (6) DVT prophylaxis Is this a current diagnosis for this admission?: Yes (7) Diabetes mellitus Qualifiers: Diabetes mellitus type: type 2 Diabetes mellitus complication status: with unspecified complications Diabetes mellitus oysterman insulin use: unspecified oysterman insulin use status Qualified Code(s): E11.8 - Type 2 diabetes mellitus with unspecified complications Is this a current diagnosis for this admission?: Yes (8) Hypomagnesemia Is this a current diagnosis for this admission?: Yes (9) Sepsis Qualifiers: Sepsis type: sepsis due to unspecified organism Qualified Code(s): A41.9 - Sepsis, unspecified organism Is this a current diagnosis for this admission?: Yes (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 (11) Candiduria Is this a current diagnosis for this admission?: Yes Plan: No clear indication this pathologic. Likely colonization. Continue to monitor for now. (12) UTI (urinary tract infection) due to Enterococcus Is this a current diagnosis for this admission?: Yes Plan: Should be covered with the above antibiotics. Remove Fisher catheter when condition will allow. - Time Time Spent with patient: 35 or more minutes Medications reviewed and adjusted accordingly: Yes
[2017-02-08] MEDS: THIAMINE HCL 100 MG TABLET NG SCH (11:09)
[2017-02-08] MEDS: GUAIFENESIN 600 MG TABLET.SA PO SCH ×2 (11:09→22:47)
[2017-02-08] MEDS: FOLIC ACID 1 MG TABLET NG SCH (11:09)
[2017-02-08] MEDS: SACUBITRIL/VALSARTAN 24 MG/26 MG TABLET PO SCH ×2 (11:10→22:46)
[2017-02-08] MEDS: ENOXAPARIN SODIUM INJ 40 MG/0.4 ML DISP.SYRIN SUBCUT SCH (11:10)
[2017-02-08] MEDS: METOPROLOL SUCCINATE 25 MG TAB.SR.24H PO SCH (11:16)
[2017-02-08] MEDS: TAMSULOSIN HCL 0.4 MG CAP.SR.24H PO SCH (11:16)
[2017-02-08] MEDS: ASPIRIN 81 MG TABLET, ENT COATED PO SCH (11:16)
--- NOTE | 2017-02-08 11:37 | PDOC PROGRESS REPORT ---
Subjective Progress Note for:: 02/07/17 Subjective:: Intubated and sedated Reason For Visit: PNEUMONIA Physical Exam Vital Signs: Temp Pulse Resp BP Pulse Ox 96.8 F L 76 18 125/82 100 02/07/17 08:00 02/07/17 08:00 02/07/17 08:00 02/07/17 08:00 02/07/17 08:00 Intake & Output 02/06/17 02/07/17 02/08/17 06:59 06:59 06:59 Intake Total 3667 7 Output Total 1245 3175 400 Balance 2422 -1148 -400 Weight 76.3 kg 75.5 kg General appearance: PRESENT: no acute distress, disheveled, morbidly obese, well -developed, well-nourished. ABSENT: mild distress, obese, severe distress, thin Head exam: PRESENT: atraumatic, normocephalic Eye exam: PRESENT: conjunctiva pale, EOMI. ABSENT: conjunctival injection, conjunctiva pink Mouth exam: PRESENT: dry mucosa, neck supple, tongue midline. ABSENT: laceration, moist Neck exam: ABSENT: carotid bruit, JVD, lymphadenopathy, thyromegaly, tracheal deviation, tracheostomy Respiratory exam: PRESENT: decreased breath sounds, prolonged expiratory phas, rales, rhonchi, symmetrical, unlabored, wheezes. ABSENT: accessory muscle use, chest wall tenderness, clear to auscultation vangie, crackles, retraction, stridor , tachypnea Cardiovascular exam: PRESENT: irregular rhythm Pulses: PRESENT: normal radial pulses GI/Abdominal exam: PRESENT: normal bowel sounds, soft. ABSENT: distended, guarding, mass, organolmegaly, rebound, tenderness Extremities exam: ABSENT: clubbing, joint swelling Musculoskeletal exam: ABSENT: ambulatory, deformity, dislocation Neurological exam: PRESENT: awake Skin exam: PRESENT: dry, warm Results Laboratory Results: 02/06/17 03:55 02/07/17 03:47 02/07/17 02/07/17 03:47 05:30 Carbonic Acid 1.28 HCO3/H2CO3 Ratio 20:1 ABG pH 7.40 ABG pCO2 42.5 ABG pO2 101.5 H ABG HCO3 25.7 ABG O2 Saturation 97.6 ABG Base Excess 0.8 FiO2 2L Sodium 137.6 Potassium 4.3 Chloride 107 Carbon Dioxide 25 Anion Gap 6 BUN 20 Creatinine 0.73 Est GFR ( Amer) > 60 Est GFR (Non-Af Amer) > 60 Glucose 212 H Calcium 8.3 L Magnesium 2.3 Total Bilirubin 0.2 AST 14 L ALT 27 Alkaline Phosphatase 54 Total Protein 5.2 L Albumin 3.0 L 02/04/17 01:50 Fisher Catheter Urine Culture - Final Enterococcus Faecalis(Group D) C.albicans/C.dubliniensis 02/04/17 01:50 Tracheal Aspirate Gram Stain - Final 02/04/17 01:50 Tracheal Aspirate Sputum Culture - Final NORMAL GEORGETTE 02/02/17 02/03/17 02/04/17 21:45 03:50 01:42 Troponin I 0.030 0.066 0.043 02/04/17 02/04/17 02/04/17 04:47 12:32 19:25 Troponin I 0.447 1.640 1.740 02/05/17 02/06/17 01:21 03:55 Troponin I 1.360 0.574 Impressions: Chest/Abdomen CTA 02/04/17 00:00 IMPRESSION: 1. There is no evidence of pulmonary emboli. 2. Small a moderate bilateral pleural effusions. 3. Left lower lobe pneumonia versus atelectasis. Chest X-Ray 02/07/17 06:00 IMPRESSION: Extubated. Nasogastric tube removed. Minimal right basilar airspace disease atelectasis versus pneumonia Assessment & Plan - Diagnosis (1) Acute respiratory failure with hypoxia and hypercapnia Is this a current diagnosis for this admission?: Yes Plan: Improving FiO2 remains elevated minute ventilation respiratory rate have improved (2) Pneumonia Qualifiers: Pneumonia type: due to unspecified organism Laterality: right Lung location: lower lobe of lung Qualified Code(s): J18.1 - Lobar pneumonia, unspecified organism Is this a current diagnosis for this admission?: Yes Plan: Suspect aspiration but no positive cultures thus far (3) Sepsis Qualifiers: Sepsis type: sepsis due to unspecified organism Qualified Code(s): A41.9 - Sepsis, unspecified organism Is this a current diagnosis for this admission?: Yes Plan: Stable
--- NOTE | 2017-02-08 11:40 | PDOC PROGRESS REPORT ---
Subjective Progress Note for:: 02/08/17 Subjective:: Intubated and sedated Reason For Visit: PNEUMONIA Physical Exam Vital Signs: Temp Pulse Resp BP Pulse Ox 97.7 F 77 22 H 141/75 H 97 02/08/17 07:24 02/08/17 08:25 02/08/17 08:25 02/08/17 07:24 02/08/17 08:25 Intake & Output 02/07/17 02/08/17 02/09/17 06:59 06:59 06:59 Intake Total 2026 1082 Output Total 3175 4921 Balance -1148 -2339 Weight 75.5 kg 73 kg General appearance: PRESENT: no acute distress, disheveled, obese. ABSENT: mild distress, morbidly obese, severe distress Head exam: PRESENT: atraumatic, normocephalic Eye exam: PRESENT: conjunctiva pale, EOMI. ABSENT: conjunctival injection, conjunctiva pink, nystagmus, periorbital swelling, scleral icterus Mouth exam: PRESENT: dry mucosa, neck supple, tongue midline. ABSENT: laceration, moist Neck exam: ABSENT: carotid bruit, JVD, lymphadenopathy, thyromegaly, tracheal deviation, tracheostomy Respiratory exam: PRESENT: decreased breath sounds, prolonged expiratory phas, rales, rhonchi, symmetrical, unlabored, wheezes. ABSENT: accessory muscle use, chest wall tenderness, clear to auscultation vangie, crackles, retraction, stridor , tachypnea Cardiovascular exam: PRESENT: irregular rhythm Pulses: PRESENT: normal radial pulses GI/Abdominal exam: PRESENT: normal bowel sounds, soft. ABSENT: distended, guarding, mass, organolmegaly, rebound, tenderness Extremities exam: ABSENT: clubbing, joint swelling Neurological exam: PRESENT: awake Skin exam: PRESENT: dry, warm Results Laboratory Results: 02/08/17 04:20 02/08/17 04:20 02/08/17 02/08/17 02/08/17 04:20 04:20 06:04 WBC 11.2 H RBC 3.80 L Hgb 12.6 L Hct 36.8 L MCV 97 MCH 33.1 MCHC 34.1 RDW 15.3 H Plt Count 173 Sodium 137.4 Potassium 3.9 Chloride 101 Carbon Dioxide 27 Anion Gap 9 BUN 22 H Creatinine 0.70 Est GFR ( Amer) > 60 Est GFR (Non-Af Amer) > 60 Glucose 126 H Calcium 8.5 Magnesium 2.2 Urine Color YELLOW Urine Appearance CLEAR Urine pH 5.0 Ur Specific [place] 1.015 Urine Protein NEGATIVE Urine Glucose (UA) NEGATIVE Urine Ketones NEGATIVE Urine Blood MODERATE H Urine Nitrite NEGATIVE Ur Leukocyte Esterase NEGATIVE Urine WBC (Auto) 9 Urine RBC (Auto) 25 02/04/17 01:50 Fisher Catheter Urine Culture - Final Enterococcus Faecalis(Group D) C.albicans/C.dubliniensis 02/02/17 02/03/17 02/04/17 21:45 03:50 01:42 Troponin I 0.030 0.066 0.043 02/04/17 02/04/17 02/04/17 04:47 12:32 19:25 Troponin I 0.447 1.640 1.740 02/05/17 02/06/17 01:21 03:55 Troponin I 1.360 0.574 Impressions: Chest/Abdomen CTA 02/04/17 00:00 IMPRESSION: 1. There is no evidence of pulmonary emboli. 2. Small a moderate bilateral pleural effusions. 3. Left lower lobe pneumonia versus atelectasis. Chest X-Ray 02/07/17 06:00 IMPRESSION: Extubated. Nasogastric tube removed. Minimal right basilar airspace disease atelectasis versus pneumonia Assessment & Plan - Diagnosis (1) Acute respiratory failure with hypoxia and hypercapnia Is this a current diagnosis for this admission?: Yes Plan: Improving FiO2 remains elevated minute ventilation respiratory rate have improved (2) Pneumonia Qualifiers: Pneumonia type: due to unspecified organism Laterality: right Lung location: lower lobe of lung Qualified Code(s): J18.1 - Lobar pneumonia, unspecified organism Is this a current diagnosis for this admission?: Yes (3) Sepsis Qualifiers: Sepsis type: sepsis due to unspecified organism Qualified Code(s): A41.9 - Sepsis, unspecified organism Is this a current diagnosis for this admission?: Yes Plan: Stable
[2017-02-08] MEDS: INSULIN LISPRO 100 UNIT/ML 3 ML VIAL SUBCUT PRN ×3 (12:06→22:34)
[2017-02-08] MEDS: INSULIN GLARGINE,HUM.REC.ANLOG 300 UNIT/3 ML INSULN.PEN SUBCUT SCH (12:06)
[2017-02-08 16:41] LABS: APPEARANCE,URINE SLIGHTLY-CLOUDY; BILIRUBIN,URINE NEGATIVE (NEGATIVE); COLOR,URINE YELLOW; GLUCOSE, URINE >=500 mg/dL (NEGATIVE); KETONES,URINE NEGATIVE (NEGATIVE); LEUKOCYTE ESTERASE,URINE MODERATE (NEGATIVE); NITRITE,URINE NEGATIVE (NEGATIVE); PROTEIN,URINE 30 mg/dL (NEGATIVE); URINE SPECIFIC GRAVITY 1.027; UROBILINOGEN,URINE NEGATIVE mg/dL (<2.0)
--- NOTE | 2017-02-08 22:28 | PROGRESS NOTE E ---
Progress Note NAME: TAMMY RICHARDS : 1955 AGE: 61Y DATE: 02/08/2017 ROOM: 308 SUBJECTIVE: The patient is now in the telemetry unit. He knows who he is, and he knows that he is in [facility]. He denies any chest pain or discomfort. There is no shortness of breath. He does have some orthopnea. There is no arrhythmia seen on the monitor. There are no TIA or CVA symptoms. There is no pedal edema. OBJECTIVE: GENERAL APPEARANCE: On examination, the patient is of fair build and appears to be chronically ill and disheveled. VITAL SIGNS: He is afebrile with a temperature of 98.2 degrees Fahrenheit. Pulse is 79 beats per minute. Blood pressure 139/76. Respirations are 20 per minute. O2 sats are 100% on 3 liters nasal cannula. HEAD: Atraumatic, normocephalic. EYES: Pupils are equal, round, regular, reactive to light and accommodation. Extraocular movements are normal. There is no conjunctival pallor. ENT: Negative. NECK: Supple. There is no JVD. Carotids are equal. There are no bruits. There is no goiter. There is no lymphadenopathy. Trachea is central. LUNGS: Show coarse, harsh breath sounds bilaterally without any rhonchi or wheezing. There is diminished air entry with prolonged expiration on auscultation also. On percussion there is hyporesonance. HEART: S1 and S2 are heard. There is no S3 gallop. There is no S4 gallop. There is a systolic murmur in the left sternal border and apex without radiation. There is no rub. ABDOMEN: Soft, nontender. There is no hepatosplenomegaly. Bowel sounds are well heard. EXTREMITIES: Femorals are diminished. There are no femoral bruits. Leg pulses are diminished. There is no DVT or cellulitis. There is no pedal edema. There is no cyanosis or clubbing. CENTRAL NERVOUS SYSTEM: The patient is conscious, seems to be oriented x2, and moves all 4 extremities. PSYCHIATRIC: The patient does not appear to be agitated. He does not seem to have any symptoms or signs of alcohol withdrawal. INTAKE/OUTPUT: His 24-hour intake has been 1082 mL, output is 3415 mL. LABORATORY DATA: His white count is 11,200, hemoglobin is 12.6, hematocrit is 36.8, platelets 173,000. His sodium is 137.4, potassium 3.9, chloride 101, CO2 is 27, BUN is 22, creatinine is 0.70, GFR is greater than 60, calcium is 8.5, magnesium is 2.2. ASSESSMENT: 1. PNEUMONIA. Continue antibiotics. Continue oxygen. Continue respiratory treatment. 2. ELEVATED TROPONIN-I. THIS IS NOT AN ST-ELEVATION RI; THIS IS A TYPE 2 RI DUE TO SUPPLY/DEMAND MISMATCH, IN VIEW OF THE PATIENT'S CARDIOMYOPATHY, COMPONENT OF ACUTE RESPIRATORY FAILURE WITH HYPOXEMIA, HYPERCAPNIA, PNEUMONIA, AND SEPSIS. Hence, would not treat this. I agree with decreasing the Lovenox to DVT prophylaxis doses. 3. ACUTE RESPIRATORY FAILURE WITH HYPOXEMIA AND HYPERCAPNIA, MUCH IMPROVED. 4. METABOLIC ENCEPHALOPATHY, SEEMS TO BE GETTING BETTER; PATIENT ALMOST BACK TO BASELINE. He is oriented x2 at present with no focal deficit. 5. HISTORY OF ETOH ABUSE. THERE IS NO EVIDENCE FOR DELIRIUM TREMENS. 6. DIABETES MELLITUS. BLOOD SUGAR IS WELL CONTROLLED AT 126. 7. CARDIOMYOPATHY.Continue Toprol , start entresto. 8. COPD. 9. Sepsis. Note, 30 minutes spent on this patient, with more than 50% of the time spent on direct patient care. His medications have been reviewed and discussed with other caregiving providers on the case. Medical decision making is of moderate to high complexity. Once the lung function goes back to his baseline, then would strongly recommend that the patient have IV Lexiscan Cardiolite stress test, preferably at this admission, since the patient is homeless and may not return for followup. Discussed with other caregiving providers on the case. DICTATING PHYSICIAN: KARSON CASTILLO M.D. [id number] AMAN#: [id number] ID: [id number] JOB#: [id number] ACCT: [id number] cc: > SANYA
[2017-02-08] MEDS: ATORVASTATIN CALCIUM 80 MG TABLET PO SCH (22:46)
[2017-02-09] MEDS: PIPERACILLIN SODIUM/TAZOBACTAM 4.5 GM in NORMAL SALINE 100 ML IV SCH ×4 (01:02→17:10)
[2017-02-09] MEDS: IPRATROPIUM/ALBUTEROL 0.5-2.5 MG/3 ML AMPUL NEB SCH ×4 (02:49→19:58)
[2017-02-09] MEDS: GABAPENTIN 300 MG CAPSULE PO SCH ×3 (05:02→22:41)
[2017-02-09] MEDS: LANSOPRAZOLE 15 MG TAB.RAP.DR PO SCH (05:47)
[2017-02-09] MEDS: METHYLPREDNISOLONE INJ 125 MG/2 ML SDV IV SCH ×3 (05:47→22:39)
[2017-02-09] MEDS: FUROSEMIDE INJ/PF 20 MG/2 ML SDV IV SCH ×2 (05:48→17:09)
[2017-02-09] MEDS: VANCOMYCIN HCL 750 MG in DEXTROSE 5%-WATER 250 ML IV SCH (06:36)
[2017-02-09] MEDS: ACETYLCYSTEINE 20% SOLN 800 MG/4 ML VIAL.NEB NEB SCH ×2 (07:36→19:58)
[2017-02-09] MEDS: INSULIN LISPRO 100 UNIT/ML 3 ML VIAL SUBCUT PRN ×4 (08:26→22:40)
[2017-02-09] MEDS ORDERED: POLYETHYLENE GLYCOL 3350 POWDER 17 GM/1 PACKET PO PRN (09:38)
--- NOTE | 2017-02-09 09:46 | PDOC PROGRESS REPORT ---
Subjective Progress Note for:: 02/09/17 Subjective:: f/u for resp failure, encephalopathy and pneumonia summary of stay thus far: per dr castro- "This is a follow-up visit for sepsis and pneumonia. The patient was admitted after being found unresponsive. He is homeless according to the patient he been having hot and cold flashes. Apparently he had also been drinking 2 days prior to admission as well. Patient was admitted with pneumonia and started on empiric Rocephin and azithromycin. He was doing well initially until 02/04 at 1 in the morning when the patient had respiratory failure. Patient had to be immediately transferred to the ICU and immediately intubated. Repeat chest x-ray showed interval development of a right lower lobe infiltrate. It is unclear as to whether or not this represents pneumonia that he had when he came in since the initial chest x-ray was clear. He may have aspirated either out of the streets before he was admitted (and an infiltrate simply had not had an opportunity to manifest itself) or he aspirated during his respiratory event. At any rate, the pH was found to be 6.9 with a PCO2 in the 120s. Since the patient has been in the unit he is been receiving chest PT daily. And his antibiotics have been broadened out. CT of the chest to rule out PE was done and was negative. Troponins have been elevated and unfortunately, this patient has suffered an NSTEMI most likely secondary to his hypoxic/hypercapnic respiratory event. He was anticoagulated on a heparin drip. NG tube was placed and tube feeds run for less than 24 hrs." I inherited his care Saturday and he was successfully extubated later that day. He has done well from a respiratory standpoint though he still requires supplemental O2. His mentation waxes and wanes, he has not shown overt s/s of ETOH withdrawal and not required anxiolytics since extubation. He remains a bit hoarse. He knows is in [facility] for breathing issues. He still does not remember being on mechanical ventilation. He reports chronic use of a wheelchair after a severe bout of pneumonia requiring prolonged hospitalization in the ICU. ROS: He reports presistent neck muscle pain - cramping in nature a general "soreness", nonradiating, constant, worse with certain movements, better with rest and asct'd sore throat; also general weakness worse from baseline, breathlessness with minimal exertion. He denies chest pain, palpitations, fever , chills, nausea, vomiting, diarrhea. He is unsure when he last moved his bowels and none documented since admission. All systems reviewed, see above, remaining systems negative. Reason For Visit: PNEUMONIA; HYPOXIC RESP FAILURE Physical Exam Vital Signs: Temp Pulse Resp BP Pulse Ox 97.3 F 73 15 134/71 H 98 02/09/17 08:10 02/09/17 08:10 02/09/17 08:10 02/09/17 08:10 02/09/17 08:10 Intake & Output 02/08/17 02/09/17 02/10/17 06:59 06:59 06:59 Intake Total 1082 2679 Output Total 3415 2600 Balance -2333 79 Weight 73 kg 75.7 kg General: Well-developed, well-nourished white male currently lying in bed; a little slow to respond this morning, having trouble getting his thoughts together but will eventually reorient for me. HEENT: oral mucosa is moist, trachea midline. no stridor; no lymphadenopathy. Cardiac: Regular rate and rhythm, normal S1, S2; high-pitched decrescendo 2/6 murmur heard best at the left second intercostal space - unchanged from before Respiratory: thick, heavy secretions; Coarse breath sounds throughout right greater than left but no obvious wheezes or rhonchi. Symmetric chest wall rise without respiratory distress or accessory muscle use Abdomen: Soft, nondistended, non-tympanitic, mildly protuberatnt,no grimace to deep palpation. Diminished bowel sounds Extremities: General edema of the hands and wrists 1+, trace edema about the lower extremities; muscle tone is normal but he is profoundly weak and only able to lift his arms and legs against gravity Neuro: Deep tendon reflexes at the patellar diminished 1+ but symmetric, there is no ankle clonus, or wrist clonus. Skin: Pale, cool and moist to the touch. Results Laboratory Results: 02/08/17 04:20 02/08/17 04:20 02/08/17 16:15 Urine Color YELLOW Urine Appearance SLIGHTLY-CLOUDY Urine pH 5.0 Ur Specific [place] 1.027 Urine Protein 30 H Urine Glucose (UA) >=500 H Urine Ketones NEGATIVE Urine Blood SMALL H Urine Nitrite NEGATIVE Ur Leukocyte Esterase MODERATE H Urine WBC (Auto) 32 Urine RBC (Auto) 28 12/16/17 12/17/17 12/18/17 21:45 03:50 01:42 Troponin I 0.030 0.066 0.043 02/04/17 02/04/17 02/04/17 04:47 12:32 19:25 Troponin I 0.447 1.640 1.740 02/05/17 02/06/17 01:21 03:55 Troponin I 1.360 0.574 Assessment & Plan - Diagnosis (1) Pneumonia Qualifiers: Pneumonia type: due to unspecified organism Laterality: right Lung location: lower lobe of lung Qualified Code(s): J18.1 - Lobar pneumonia, unspecified organism Is this a current diagnosis for this admission?: Yes Plan: Improved but not back to baseline. Possibly aspiration. Continue Zosyn day # 6 but d/c vanc as no evidence for MRSA found on cultures. Sputum culture reviewed, nondiagnostic. (2) NSTEMI (non-ST elevated myocardial infarction) Is this a current diagnosis for this admission?: Yes Plan: Stable. Type II ND likely secondary to a hypoxic stress from the above. Continue medical management for now. When his condition is stabilized he may need further risk stratification and testing. After discussion with Dr. Leyva there is no indication for full dose anticoagulation with Lovenox. (3) Acute respiratory failure with hypoxia and hypercapnia Is this a current diagnosis for this admission?: Yes Plan: Improved and near baseline. Likely secondary aspiration pneumonia, compounded by metabolic encephalopathy. See above. (4) Acute metabolic encephalopathy Is this a current diagnosis for this admission?: Yes Plan: Unclear etiology but likely multifactorial and beginning to clear. Continue thiamine given his history of alcohol abuse. (5) Alcohol abuse Is this a current diagnosis for this admission?: Yes (6) DVT prophylaxis Is this a current diagnosis for this admission?: Yes Plan: enoxaparin (7) Diabetes mellitus Qualifiers: Diabetes mellitus type: type 2 Diabetes mellitus complication status: with unspecified complications Diabetes mellitus keno terminal operator insulin use: unspecified senior living insulin use status Qualified Code(s): E11.8 - Type 2 diabetes mellitus with unspecified complications Is this a current diagnosis for this admission?: Yes Plan: Ketnx-mr-quzz glucose under 250 consistently after added low-dose basal insulin and continue to cover with sliding scale. Hemoglobin A1c is 6.4. May need additional dose adjustment (8) Hypomagnesemia Is this a current diagnosis for this admission?: Yes Plan: Resolved. (9) Sepsis Qualifiers: Sepsis type: sepsis due to unspecified organism Qualified Code(s): A41.9 - Sepsis, unspecified organism Is this a current diagnosis for this admission?: Yes Plan: Resolved. (10) Critical illness myopathy Is this a current diagnosis for this admission?: Yes Plan: continue physical therapy, may need rehab placement. d/c augustin (11) Candiduria Is this a current diagnosis for this admission?: Yes Plan: No clear indication this pathologic. Likely colonization. Continue to monitor for now. (12) UTI (urinary tract infection) due to Enterococcus Is this a current diagnosis for this admission?: Yes Plan: Enterococcus Should be covered with the above antibiotics. Remove Augustin catheter - Time Time Spent with patient: 35 or more minutes Medications reviewed and adjusted accordingly: Yes
[2017-02-09] MEDS: DOCUSATE SODIUM 100 MG CAPSULE PO SCH ×2 (11:06→17:10)
[2017-02-09] MEDS: ENOXAPARIN SODIUM INJ 40 MG/0.4 ML DISP.SYRIN SUBCUT SCH (11:06)
[2017-02-09] MEDS: FOLIC ACID 1 MG TABLET NG SCH (11:06)
[2017-02-09] MEDS: METOPROLOL SUCCINATE 25 MG TAB.SR.24H PO SCH ×2 (11:07→22:42)
[2017-02-09] MEDS: ASPIRIN 81 MG TABLET, ENT COATED PO SCH (11:07)
[2017-02-09] MEDS: GUAIFENESIN 600 MG TABLET.SA PO SCH ×2 (11:07→22:42)
[2017-02-09] MEDS: TAMSULOSIN HCL 0.4 MG CAP.SR.24H PO SCH (11:07)
[2017-02-09] MEDS: THIAMINE HCL 100 MG TABLET NG SCH (11:07)
[2017-02-09] MEDS: INSULIN GLARGINE,HUM.REC.ANLOG 300 UNIT/3 ML INSULN.PEN SUBCUT SCH (11:10)
[2017-02-09] MEDS: SACUBITRIL/VALSARTAN 24 MG/26 MG TABLET PO SCH ×2 (11:11→22:41)
--- NOTE | 2017-02-09 14:00 | PDOC CONSULTATION ---
Consultation Consult Date: 02/06/17 History of Present Illness Admission Date/PCP: 02/02/17 20:39 Past Medical History Cardiac Medical History: Reports: Congestive Heart Failure, Myocardial Infarction Pulmonary Medical History: Reports: Chronic Obstructive Pulmonary Disease (COPD) Endocrine Medical History: Reports: Diabetes Mellitus Type 1, Diabetes Mellitus Type 2 - insulin dependent GI Medical History: Reports: Gastroesophageal Reflux Disease Psychiatric Medical History: Reports: Depression Past Surgical History Past Surgical History: Reports: Other - unable to obtain Social History Lives with: Homeless Smoking Status: Current Every Day Smoker Frequency of Alcohol Use: Occasional Hx Recreational Drug Use: No - unable to obtain Drugs: Cocaine Hx Prescription Drug Abuse: No - Advance Directive Resuscitation Status: Full Code Family History Family History: Reviewed & Not Pertinent Medication/Allergy Home Medications: No Home Medications 02/04/17 Allergies/Adverse Reactions: walnuts Allergy (Uncoded 11/01/16 01:37) Physical Exam Vital Signs: Temp Pulse Resp BP Pulse Ox 97.7 F 73 17 131/65 H 98 02/09/17 12:03 02/09/17 12:03 02/09/17 12:03 02/09/17 12:03 02/09/17 12:03 Intake & Output 02/08/17 02/09/17 02/10/17 06:59 06:59 06:59 Intake Total 1082 2679 694 Output Total 3415 2600 1600 Balance -2333 79 -906 Weight 73 kg 75.7 kg Results Laboratory Results: 02/08/17 04:20 02/08/17 04:20 02/08/17 16:15 Urine Color YELLOW Urine Appearance SLIGHTLY-CLOUDY Urine pH 5.0 Ur Specific [place] 1.027 Urine Protein 30 H Urine Glucose (UA) >=500 H Urine Ketones NEGATIVE Urine Blood SMALL H Urine Nitrite NEGATIVE Ur Leukocyte Esterase MODERATE H Urine WBC (Auto) 32 Urine RBC (Auto) 28 02/02/17 02/03/17 02/04/17 21:45 03:50 01:42 Troponin I 0.030 0.066 0.043 02/04/17 02/04/17 02/04/17 04:47 12:32 19:25 Troponin I 0.447 1.640 1.740 02/05/17 02/06/17 01:21 03:55 Troponin I 1.360 0.574 Impressions: Chest/Abdomen CTA 02/04/17 00:00 IMPRESSION: 1. There is no evidence of pulmonary emboli. 2. Small a moderate bilateral pleural effusions. 3. Left lower lobe pneumonia versus atelectasis. Chest X-Ray 02/07/17 06:00 IMPRESSION: Extubated. Nasogastric tube removed. Minimal right basilar airspace disease atelectasis versus pneumonia
--- NOTE | 2017-02-09 19:23 | PROGRESS NOTE E ---
Progress Note NAME: TAMMY RICHARDS : 1955 AGE: 61Y DATE: ROOM: 308 SUBJECTIVE: Note that the patient is slightly confused today, but states that he has no chest pain or discomfort. There is no arrhythmia seen on the monitor. He continues to have some orthopnea but no PND. OBJECTIVE: GENERAL: On examination the patient is frail built and appears to be chronically ill and disheveled. VITAL SIGNS: The patient is afebrile with a temperature of 97.7 degrees Fahrenheit, pulse of 73 beats per minute, blood pressure 131/65, respirations are 17 per minute, O2 saturations are 98% on 2.5 liters of nasal cannula. HEENT: Head is atraumatic, normocephalic. Eyes: Pupils are equal, round and regular, reactive to light and accommodation. Extraocular movements are normal. There is no conjunctival pallor. ENT is negative. NECK: Supple. There is no JVD. There is no lymphadenopathy. There is no goiter. Carotids are equal. There is no bruit. Trachea is central. LUNGS: Show harsh breath sounds bilaterally resulting in rhonchi, wheezing, and rales. There is no chest wall tenderness. HEART: S1 and S2 is heard. There is no S3 gallop. There is no S4 gallop. There is a systolic murmur in the left sternal border and the apex without radiation. There is no rub. ABDOMEN: Soft, nontender. There is no hepatosplenomegaly. Bowel sounds are well heard. EXTREMITIES: Femorals are diminished. There are no femoral bruits. Leg pulses are diminished. There is no pedal edema. There is no cyanosis or clubbing. There is no DVT or cellulitis. CENTRAL NERVOUS SYSTEM: The patient is conscious, seems to be confused , but moves all 4 extremities. PSYCHIATRIC: The patient does not appear to be agitated. He does not seem to have any symptoms or signs of alcohol withdrawal. INTAKE/OUTPUT: The patient's 24 hour intake is 2679 mL, output is 2600 mL. LABORATORY DATA: The patient's blood sugar is 158 and 288. ASSESSMENT: *------*. 2. PNEUMONIA. Continue antibiotics. Continue respiratory treatment. 3. ELEVATED TROPONIN I. THIS IS NOT AN ST ELEVATION [place], THIS TROPONIN I IS DUE TO SUPPLY/DEMAND MISMATCH IN VIEW OF THE PATIENT'S CARDIOMYOPATHY, A COMPONENT OF ACUTE RESPIRATORY FAILURE WITH HYPOXEMIA, HYPERCAPNIA, PNEUMONIA, AND SEPSIS. 4. ACUTE RESPIRATORY FAILURE WITH HYPOXEMIA, HYPERCAPNIA MUCH IMPROVED. 5. WERNICKE'S ENCEPHALOPATHY, SEEMS TO BE GETTING WORSE ? CAUSE. At present the patient is confused and disoriented x3. 6. HISTORY OF ETOH ABUSE. THERE IS NO EVIDENCE OF DELIRIUM TREMENS OR THAT THE PATIENT IS CONFUSED. 7. DIABETES MELLITUS. BLOOD SUGAR SLIGHTLY [id number]. 8. SEPSIS. Continue antibiotics. 9. COPD, AT PRESENT ACUTE EXACERBATION STATUS IS OVER AND THE PATIENT IS BACK TO BASELINE. 10. CARDIOMYOPATHY WITH MODERATELY REDUCED LV EJECTION FRACTION OF 35%. Note: Continue current respiratory treatments, antibiotics and continue steroids, continue metoprolol (that is Toprol XL). Continue Lasix, would recommend changing the Lasix to 20 mg p.o. daily. Note that the patient is on Entresto, continue Entresto. PLAN: We will follow with you. Later once the patient's mental status goes back to normal then would recommend the patient have an IV Lexiscan Cardiolite stress test. We will increase the patient's Toprol XL to 25 mg p.o. q.12 hours. TIME SPENT: Note 30 minutes spent on this patient and more than 50% of the time spent on direct patient care. His medications have been reviewed and adjusted. Discussed with the other caregiving providers on the case. Note medical decision making is of still high complexity in view of the patient's altered mental status the reason of which is not known. We will follow with you. DICTATING PHYSICIAN: KARSON CASTILLO M.D. [id number] AMAN#: [id number] ID: [id number] JOB#: [id number] ACCT: [id number] cc: > ROGELIOD
[2017-02-09] MEDS: LACTULOSE SYRUP 20 GM/30 ML UDCUP PO SCH (22:40)
[2017-02-09] MEDS: ATORVASTATIN CALCIUM 80 MG TABLET PO SCH (22:41)
[2017-02-10] MEDS: PIPERACILLIN SODIUM/TAZOBACTAM 4.5 GM in NORMAL SALINE 100 ML IV SCH ×4 (00:22→17:33)
[2017-02-10] MEDS: IPRATROPIUM/ALBUTEROL 0.5-2.5 MG/3 ML AMPUL NEB SCH ×4 (01:53→19:50)
[2017-02-10 05:36] LABS: ANION GAP 10 (5-19); BLOOD UREA NITROGEN 21 mg/dL (7-20); CARBON DIOXIDE 28 mmol/L (22-30); CHLORIDE 100 mmol/L (98-107); GLUCOSE 135 mg/dL (75-110); POTASSIUM 3.5 mmol/L (3.6-5.0); SODIUM 138.4 mmol/L (137-145)
[2017-02-10] MEDS: LANSOPRAZOLE 15 MG TAB.RAP.DR PO SCH (05:56)
[2017-02-10] MEDS: GABAPENTIN 300 MG CAPSULE PO SCH ×3 (05:56→21:40)
[2017-02-10] MEDS: METHYLPREDNISOLONE INJ 125 MG/2 ML SDV IV SCH ×3 (05:57→21:42)
[2017-02-10 07:58] LABS: HEMATOCRIT 41.8 % (37.9-51.0); MEAN CORPUSCULAR HEMOGLOBIN 32.5 pg (27.0-33.4); MEAN CORPUSCULAR HGB CONC 33.6 g/dL (32.0-36.0); MEAN CORPUSCULAR VOLUME 97 fl (80-97); PLATELET COUNT 217 10^3/uL (150-450); RED BLOOD COUNT 4.32 10^6/uL (4.35-5.55); RED CELL DISTRIBUTION WIDTH 14.8 % (11.5-14.0); WHITE BLOOD COUNT 21.9 10^3/uL (4.0-10.5)
[2017-02-10] MEDS: INSULIN LISPRO 100 UNIT/ML 3 ML VIAL SUBCUT PRN ×4 (07:58→22:44)
[2017-02-10] MEDS: ACETYLCYSTEINE 20% SOLN 800 MG/4 ML VIAL.NEB NEB SCH ×2 (08:38→19:51)
[2017-02-10 08:42] LABS: ABSOLUTE LYMPHOCYTES# (MANUAL) 1.8 10^3/uL (0.5-4.7); ABSOLUTE MONOCYTES # (MANUAL) 0.4 10^3/uL (0.1-1.4); ABSOLUTE NEUTROPHILS# (MANUAL) 19.7 10^3/uL (1.7-8.2); BASOPHILS % (MANUAL) 0 % (0-2); EOSINOPHILS % (MANUAL) 0 % (0-6); LYMPHOCYTES % (MANUAL) 8 % (13-45); MONOCYTES % (MANUAL) 2 % (3-13); SEGMENTED NEUTROPHILS % (MAN) 90 % (42-78); TOTAL CELLS COUNTED 100
[2017-02-10 08:44] LABS: BURR CELLS SLIGHT; OVALOCYTES SLIGHT; POIKILOCYTOSIS 1+
[2017-02-10 08:45] LABS: PLATELET CLUMPS PRESENT; PLATELET COMMENT ADEQUATE; TEAR DROP CELLS SLIGHT
[2017-02-10] MEDS ORDERED: FUROSEMIDE INJ/PF 20 MG/2 ML SDV IV SCH (10:00)
[2017-02-10] MEDS: GUAIFENESIN 600 MG TABLET.SA PO SCH ×2 (10:02→21:40)
[2017-02-10] MEDS: METOPROLOL SUCCINATE 25 MG TAB.SR.24H PO SCH ×2 (10:03→21:41)
[2017-02-10] MEDS: THIAMINE HCL 100 MG TABLET NG SCH (10:03)
[2017-02-10] MEDS: SACUBITRIL/VALSARTAN 24 MG/26 MG TABLET PO SCH ×2 (10:03→21:45)
[2017-02-10] MEDS: ASPIRIN 81 MG TABLET, ENT COATED PO SCH (10:03)
[2017-02-10] MEDS: FUROSEMIDE 20 MG TABLET PO SCH (10:03)
[2017-02-10] MEDS: FOLIC ACID 1 MG TABLET NG SCH (10:04)
[2017-02-10] MEDS: TAMSULOSIN HCL 0.4 MG CAP.SR.24H PO SCH (10:04)
[2017-02-10] MEDS: ENOXAPARIN SODIUM INJ 40 MG/0.4 ML DISP.SYRIN SUBCUT SCH (10:04)
[2017-02-10] MEDS: LACTOBACILLUS ACIDOPHILUS 250 MG TAB PO SCH ×2 (10:07→17:33)
[2017-02-10] MEDS: DOCUSATE SODIUM 100 MG CAPSULE PO SCH (10:08)
[2017-02-10] MEDS: INSULIN GLARGINE,HUM.REC.ANLOG 300 UNIT/3 ML INSULN.PEN SUBCUT SCH (11:40)
[2017-02-10 11:43] LABS: MAGNESIUM 2.1 mg/dL (1.6-2.3); PHOSPHORUS 2.8 mg/dL (2.5-4.5)
--- NOTE | 2017-02-10 12:03 | PDOC PROGRESS REPORT ---
Subjective Progress Note for:: 02/10/17 Subjective:: 61 year old gentleman who is reportedly homeless and has a history of alcohol and tobacco use was admitted to the hospital after being found unresponsive. He was spectated to have pneumonia and started on empiric Rocephin and azithromycin. He had been doing well until February 04 in the morning when he developed respiratory failure transferred to the intensive care unit and intubated. X-ray showed interval development of a right lower lobe infiltrate and ABG revealed respiratory acidosis and hypercapnia. His antibiotics were broadened. CT of the chest was negative for pulmonary embolism. He did have a non-ST elevation myocardial infarction felt to be secondary to his hypercapnic event and was initially on a heparin drip. He also received tube feeds through an NG tube. He was eventually extubated on February 06, and has had generalized weakness with waxing and waning mentation. He has not shown any overt signs or symptoms of alcohol withdrawal. This morning he is sitting up in bed, he reports generalized weakness. Continues to cough but his dyspnea has improved. Appetite is good. Diet will be upgraded with aspiration precautions. Reason For Visit: PNEUMONIA Physical Exam Vital Signs: Temp Pulse Resp BP Pulse Ox 98.3 F 83 16 124/62 100 02/10/17 07:44 02/10/17 08:37 02/10/17 08:37 02/10/17 07:44 02/10/17 08:37 Intake & Output 02/09/17 02/10/17 02/11/17 06:59 06:59 06:59 Intake Total 2679 1674 Output Total 2600 1600 Balance 79 74 Weight 75.7 kg 76.1 kg General appearance: PRESENT: no acute distress, disheveled Head exam: PRESENT: atraumatic Eye exam: PRESENT: EOMI Ear exam: PRESENT: normal external ear exam Mouth exam: PRESENT: moist, tongue midline Neck exam: ABSENT: JVD, tenderness Respiratory exam: ABSENT: accessory muscle use, crackles, wheezes - Coarse breath sounds Cardiovascular exam: PRESENT: RRR - No pitting edema no cyanosis GI/Abdominal exam: PRESENT: normal bowel sounds, soft. ABSENT: tenderness Rectal exam: PRESENT: deferred Neurological exam: PRESENT: alert, awake, oriented to person, oriented to place Psychiatric exam: PRESENT: flat affect Results Laboratory Results: 02/10/17 07:30 02/10/17 04:03 02/10/17 02/10/17 02/10/17 00:45 04:03 04:03 WBC Cancelled RBC Cancelled Hgb Cancelled Hct Cancelled MCV Cancelled MCH Cancelled MCHC Cancelled RDW Cancelled Plt Count Cancelled Seg Neutrophils % Cancelled Lymphocytes % Cancelled Monocytes % Cancelled Eosinophils % Cancelled Basophils % Cancelled Absolute Neutrophils Cancelled Absolute Lymphocytes Cancelled Absolute Monocytes Cancelled Absolute Eosinophils Cancelled Absolute Basophils Cancelled Sodium 138.4 Potassium 3.5 L Chloride 100 Carbon Dioxide 28 Anion Gap 10 BUN 21 H Creatinine 0.68 Est GFR ( Amer) > 60 Est GFR (Non-Af Amer) > 60 Glucose 135 H Calcium 9.0 Phosphorus Magnesium Stool Occult Blood NEGATIVE 02/10/17 02/10/17 04:03 07:30 WBC 21.9 H RBC 4.32 L Hgb 14.0 Hct 41.8 MCV 97 MCH 32.5 MCHC 33.6 RDW 14.8 H Plt Count 217 Seg Neutrophils % Not Reportable Lymphocytes % Not Reportable Monocytes % Not Reportable Eosinophils % Not Reportable Basophils % Not Reportable Absolute Neutrophils Not Reportable Absolute Lymphocytes Not Reportable Absolute Monocytes Not Reportable Absolute Eosinophils Not Reportable Absolute Basophils Not Reportable Sodium Potassium Chloride Carbon Dioxide Anion Gap BUN Creatinine Est GFR ( Amer) Est GFR (Non-Af Amer) Glucose Calcium Phosphorus 2.8 Magnesium 2.1 Stool Occult Blood 02/02/17 02/03/17 02/04/17 21:45 03:50 01:42 Troponin I 0.030 0.066 0.043 02/04/17 02/04/17 02/04/17 04:47 12:32 19:25 Troponin I 0.447 1.640 1.740 02/05/17 02/06/17 01:21 03:55 Troponin I 1.360 0.574 Impressions: Chest/Abdomen CTA 02/04/17 00:00 IMPRESSION: 1. There is no evidence of pulmonary emboli. 2. Small a moderate bilateral pleural effusions. 3. Left lower lobe pneumonia versus atelectasis. Chest X-Ray 02/07/17 06:00 IMPRESSION: Extubated. Nasogastric tube removed. Minimal right basilar airspace disease atelectasis versus pneumonia Assessment & Plan - Diagnosis (1) Acute metabolic encephalopathy Is this a current diagnosis for this admission?: Yes (2) Acute respiratory failure with hypoxia and hypercapnia Is this a current diagnosis for this admission?: Yes (3) Alcohol abuse Is this a current diagnosis for this admission?: Yes (4) Critical illness myopathy Is this a current diagnosis for this admission?: Yes (5) Diabetes mellitus Qualifiers: Diabetes mellitus type: type 2 Diabetes mellitus complication status: with unspecified complications Diabetes mellitus fci insulin use: unspecified fci insulin use status Qualified Code(s): E11.8 - Type 2 diabetes mellitus with unspecified complications Is this a current diagnosis for this admission?: Yes (6) NSTEMI (non-ST elevated myocardial infarction) Is this a current diagnosis for this admission?: Yes (7) Pneumonia Qualifiers: Pneumonia type: due to unspecified organism Laterality: right Lung location: lower lobe of lung Qualified Code(s): J18.1 - Lobar pneumonia, unspecified organism Is this a current diagnosis for this admission?: Yes - Time Time Spent with patient: 35 or more minutes - Plan Summary Plan Summary: Day 7 of Zosyn for enterococcus UTI and pneumonia. Vancomycin discontinued is no evidence of MRSA on cultures Sputum culture nondiagnostic He suffered a type II non-ST elevation myocardial infarction due to hypoxic stress. Continue medical management for now. After Ashley's input appreciated. There is a plan for a stress test on February 12. His acute hypoxic and hypercapnic respiratory failure has improved. He has multifactorial metabolic encephalopathy which is now improving. He is on DVT prophylaxis with Lovenox Maryann anemia has been treated Sepsis has resolved Continue physical therapy for critical illness myopathy.
[2017-02-10] MEDS ORDERED: POTASSIUM CHLORIDE 10 MEQ TABLET.SA PO ONE (13:47)
--- NOTE | 2017-02-10 14:33 | PROGRESS NOTE E ---
Progress Note NAME: TAMMY RICHARDS : 1955 AGE: 61Y DATE: 02/10/2017 ROOM: 308 SUBJECTIVE: The patient is sitting up in the bed. He denies any chest pain or discomfort. He seems to be awake and at present seems to be oriented x3, although he has a slow mentation. He denies any PND, orthopnea or leg edema. There are no palpitations. There is no chest pain. There are no TIA or CVA symptoms. There is no pedal edema. The patient denies any dizziness, near syncope or syncope. OBJECTIVE: GENERAL: The patient is of frail build and appears to be chronically ill and disheveled. VITAL SIGNS: He is afebrile with a temperature of 98.3 degrees Fahrenheit, pulse of 81 beats per minute, blood pressure 124/62, respirations are 15 per minute, O2 saturations are 96% on room air. HEENT: Head is atraumatic, normocephalic. Eyes: Pupils are equal, round and regular, reactive to light and accommodation. Extraocular movements are normal. There is no conjunctival pallor. There is no scleral icterus. ENT is negative. NECK: Supple. There is no JVD. Carotids are equal. There is no bruit. There is no goiter. There is no lymphadenopathy. LUNGS: There are no accessory muscles of use. There are some harsh breath sounds bilaterally but without any rales, rhonchi or wheezing. HEART: S1 and S2 are heard. There is no S3 gallop. There is no S4 gallop. There is a systolic murmur in the left sternal border and the apex. There is no rub. ABDOMEN: Soft, nontender. There is no hepatosplenomegaly. Bowel sounds are well heard. There are no tender areas of masses. EXTREMITIES: Femorals are diminished. There are no femoral bruits. Leg pulses are diminished. There is no pedal edema. There is no cyanosis or clubbing. There is no DVT or cellulitis. CENTRAL NERVOUS SYSTEM: The patient is conscious, at present seems to be oriented x3 with no focal deficits. PSYCHIATRIC: The patient's judgment and insight are intact but is of slow mentation. The patient's 24 hour intake is 1674 mL, output is 1069 mL. LABORATORY DATA: The patient's sodium is 138.4, potassium is low at 3.5, chloride is 100, CO2 is 28. The patient's BUN is 21, creatinine 0.68, GFR is greater than 60, his glucose is 135, calcium 9.0, phosphorus is 2.8, magnesium is 2.1. The patient's white count is 28,900, hemoglobin is 14, hematocrit is 41.8, and his platelet count is 217,000. IMPRESSION: 1. HYPOKALEMIA. Will replace the patient's potassium. 2. PNEUMONIA. Continue antibiotics. Continue oxygen. Clinically seems to have improved. 3. ELEVATED TROPONIN I. This is not a non-ST elevation [place]. It is most likely secondary to the patient's cardiomyopathy, a component of acute respiratory failure with hypoxemia, hypercapnia, pneumonia, and sepsis. 4. ACUTE RESPIRATORY FAILURE WITH HYPOXEMIA, HYPERCAPNIA. Improved, back to baseline. 5. WERNICKE'S ENCEPHALOPATHY. The patient has waxing and waning of his mental status but at present seems to be disoriented x3, although of slow mentation. 6. HISTORY OF ETOH ABUSE. 7. DIABETES MELLITUS. 8. CARDIOMYOPATHY. 9. COPD. 10. SEPSIS. This seems to have resolved. RECOMMENDATIONS: As mentioned earlier, we will replace the patient's potassium. Continue his beta-blockers and Entresto. Continue antibiotics. Continue respiratory treatments and continue antidiabetic treatment. Also, the patient is on hypoglycemic precautions. He is also on atorvastatin 80 mg p.o. at bedtime. Note: 30 minutes spent on this patient with more than 50% of the time spent on direct patient care. His medications have been reviewed and medications added. Discussed with the hospitalist taking care of the patient. Will schedule the patient for IV Cardiolite stress test in view of the cardiomyopathy in the form of IV Lexiscan Cardiolite stress test on Saturday. Note: Medical decision making is of moderate to high complexity. We will follow with you. Note: The patient is a FULL CODE. His daughter is the surrogate healthcare decision maker. DICTATING PHYSICIAN: KARSON CASTILLO M.D. [id number] PHY#: [id number] ID: [id number] JOB#: [id number] ACCT: [id number] cc: >
--- NOTE | 2017-02-10 15:35 | PDOC PROGRESS REPORT ---
Subjective Progress Note for:: 02/06/17 - Consultation for elevated troponin I. Subjective:: Note that this is a consultation note and not a progress note. The previously dictated note is not to be found and hence this has been redictated from my notes. The patient was seen on 02/07/20, at 10:30 AM to 11:15 AM. [45 minutes spent on this patient, including more than 50% of the time spent in direct patient care and also trying to obtain a history from the patient which was not very successful, and review of the patient's chart.] History of present illness: The patient was extubated earlier today. The patient is confused and not a very good historian and but denies any chest pain or shortness of breath.. He was admitted on 02/02/2017 for respiratory failure and encephalopathy and pneumonia. Patient has a history of EtOH abuse. And he was found to be unresponsive prior to being brought to the hospital he was in respiratory distress and was intubated. He is being treated for pneumonia. His troponin I was elevated. And this I believe is not due to a non-ST elevation [place] since the patient had no complaints of chest pain even though he is confused now he denies any chest pain at any time, and denies any history of coronary artery disease. Note that the patient also has a cardiomyopathy with LV ejection fraction 35% and the chest x-ray shows not only pneumonia but also heart failure and hence the troponin troponin I elevation is secondary to the patient' s cardia myopathy pneumonia sepsis hypoxemia and respiratory failure, and not a true non-ST elevation VA. This is a type II myocardial infarction due to supply demand mismatch. The patient denies any palpitations but it is not reliable historian. The patient does not be moves all 4 extremities and hence there is no evidence of any TIA or CVA there is no pedal edema. Past medical history As per the chart he has a past history of myocardial infarction and congestive heart failure although this cannot be corroborated since the patient is confused he also has a history of COPD the patient is a smoker and has a history of any EtOH abuse. He has a history of diabetes mellitus type 2 insulin -dependent and also has GERD.. Past Surgical History: None. Social History: The patient is a smoker and he has a history of EtOH abuse. Family History: Is positive for coronary artery disease and hypertension, as per patient but I am not sure if this is reliable. Advanced directives: The patient is a full code his daughter is a surrogate healthcare decision maker. Allergies he is allergic to walnut Medications: As per his MAR , which has been reviewed. Review of symptoms: Not obtainable reliably since the patient is confused although he denies any chest pain or discomfort or shortness of breath or cough he does have orthopnea but no PND or leg edema. He denies any abdominal pain there is no history of TIA or CVA symptoms. There is no history of chronic kidney disease. Physical Examination: Note that the patient recently was extubated he is on a face tent he looks chronically ill and frail build and is disheveled. He is afebrile with a temperature of 98.1F, his pulse is sinus tachycardia at 114 bpm, blood pressure is 120/70, respirations are 24/min, with O2 saturation of 93% on a face tent. Head is atraumatic normocephalic Eyes: Pupils are equal round regular react to light accommodation external ocular movements are normal, there is no conjunctival pallor, and there is no scleral icterus. Ears: Tympanic membranes are intact external auditory canals clear. Nose: There is no deviated nasal septum there is no inflammation of the nasal mucous membrane. Mouth: Mucous membranes of the mouth are moist tongue is moist there is no ulcers there is no bleeding from the gums. Throat: There are no redness of the oropharynx and no exudate. Skin: There is no skin rashes or skin lesions there is no petechia or ecchymosis. Neck: There is no JVD carotids are equal there is no bruit there is no lymphadenopathy there is no carotid trachea central. Lungs: There is diminished air entry prolonged expiration throughout with hyperresonance on percussion there is a few bibasilar rales of dry crackles and harsh breath sounds with scattered rhonchi and occasional wheezing. There are no accessory muscles of respiration in use. Heart: S1-S2 is heard there is no S3 gallop there is no S4 gallop systolic murmur left sternal border and apex there is no rub. Abdomen: Soft nontender there is no paraspinal megaly bowel sounds well heard there is no tender areas of masses. Extremities: Femorals are decreased there is no femoral bruits neck pulses are diminished there is no pedal edema there is no DVT assessment cellulitis there is no cyanosis or clubbing. 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 Psychiatric. The patient is not able to participate in a psych exam or evaluation. But he does not appear to be agitated. The patient's white count is 9000 hemoglobin is 12.5 hematocrit is 36.5 platelet count is 145,000. The patient's pro time on IV heparin is 14.3 INR is 1.04 PTT 78.6 note that the patient is a full dose of heparin. The patient's ABG show pH of 7.42 PCO2 is low at 33.3 PO2 is low at 73.8 this is on 21% with a O2 sat of 90 with a oxygen saturation of 95.3%. The patient's sodium was 134.1 potassium 4.9 chloride 109 CO2 is 20 the patient's BUN is 16 creatinine 0.660 part is greater than 60 his glucose is 194 his calcium is 7.9 phosphorus 3.3 magnesium was 2.5 which is high his troponin I is trended down to 0.574. On the the patient's troponin I was negative at 0.028 and 0.030 subsequently on the it was 0.066 and on the it was 0.043 and subsequently went up to 0.447 and on the and subsequently went up to 1.640 and peaked at 1.74 and subsequently on the came down to 1.360 and notes further down. The patient's chest x-ray shows congestive heart failure and also left lower lobe pneumonia. The patient CT angiogram of the chest shows no pulmonary emboli. Left lower lobe pneumonia moderate bilateral pleural effusions. The patient's echocardiogram done on 04 February shows the left ventricle is mild to moderately dilated there is normal left ventricular wall thickness there is moderate global hypokinesis of left ventricle with LV ejection fraction of 35%. Which is moderately reduced left ventricular systolic function. There is no aortic valve stenosis there is no aortic regurgitation there is no mitral valve prolapse or stenosis there is trace mitral regurgitation. There is no tricuspid stenosis there is trace amount of tricuspid regurgitation right ventricle systolic pressure is 36 mmHg with RA mean of 10 this is mild pulmonary hypertension by echo. There is no pericardial effusion. Impression: 1. Elevated troponin I secondary to supply demand mismatch] type II myocardial infarction] this is not a non-ST elevation [place] and known would treat the underlying cause which is cardiomyopathy respiratory failure pneumonia and hypoxemia and sepsis. #2 acute respiratory failure with hypoxemia and hypercapnia the patient now extubated continue respiratory treatments with steroids and antibiotics. #3 pneumonia continue antibiotics continue oxygen. # 5 encephalopathy most likely Wernicke's encephalopathy. But need to watch out for alcohol withdrawal symptoms and signs #7 his history of EtOH abuse #8 diabetes mellitus #9 his cardio myopathy #10 COPD #11 sepsis continue current medication. 12. History of myocardial infarction and coronary artery disease. Will need corroboration. Will try to speak to the patient's daughter Would strongly recommend to discontinue the full dose anticoagulation and change it to DVT prophylaxis dosage. Would later start the patient on LIANE inhibitor or Crestor. Continue beta-blockers would recommend continue aspirin. Continue respiratory treatments, antibiotics, and oxygen as needed, and steroids with withdrawal of this steroids gradually. As mentioned earlier 45 minutes spent on this patient with more than 50% of time spent in direct patient care his medications have been reviewed and the medication Adjustments have been discussed with the hospitalist. Note medical decision making is of highly high complexity since the patient is not able to give a good his history. Later once the patient's lung problem resolves or goes to baseline then would recommend that the patient have an IV Lexiscan Cardiolite stress test since the patient claims that he has a past history of myocardial infarction and coronary artery disease. As per the chart. Later once the patient is more coherent and the confusion resolves were discussed with the patient about abstinence from alcohol and tobacco cessation counseling. . Reason For Visit: PNEUMONIA Reason For Consultation: Elevated troponin levels. Physical Exam Vital Signs: Temp Pulse Resp BP Pulse Ox 97.6 F 84 16 115/58 L 94 02/10/17 11:51 02/10/17 14:00 02/10/17 14:00 02/10/17 11:51 02/10/17 11:51 Intake & Output 02/09/17 02/10/17 02/11/17 06:59 06:59 06:59 Intake Total 6279 1674 473 Output Total 2600 1600 200 Balance 79 74 273 Weight 75.7 kg 76.1 kg Results Laboratory Results: 02/10/17 07:30 02/10/17 04:03 02/10/17 02/10/17 02/10/17 00:45 04:03 04:03 WBC Cancelled RBC Cancelled Hgb Cancelled Hct Cancelled MCV Cancelled MCH Cancelled MCHC Cancelled RDW Cancelled Plt Count Cancelled Seg Neutrophils % Cancelled Lymphocytes % Cancelled Monocytes % Cancelled Eosinophils % Cancelled Basophils % Cancelled Absolute Neutrophils Cancelled Absolute Lymphocytes Cancelled Absolute Monocytes Cancelled Absolute Eosinophils Cancelled Absolute Basophils Cancelled Sodium 138.4 Potassium 3.5 L Chloride 100 Carbon Dioxide 28 Anion Gap 10 BUN 21 H Creatinine 0.68 Est GFR ( Amer) > 60 Est GFR (Non-Af Amer) > 60 Glucose 135 H Calcium 9.0 Phosphorus Magnesium Stool Occult Blood NEGATIVE 02/10/17 02/10/17 04:03 07:30 WBC 21.9 H RBC 4.32 L Hgb 14.0 Hct 41.8 MCV 97 MCH 32.5 MCHC 33.6 RDW 14.8 H Plt Count 217 Seg Neutrophils % Not Reportable Lymphocytes % Not Reportable Monocytes % Not Reportable Eosinophils % Not Reportable Basophils % Not Reportable Absolute Neutrophils Not Reportable Absolute Lymphocytes Not Reportable Absolute Monocytes Not Reportable Absolute Eosinophils Not Reportable Absolute Basophils Not Reportable Sodium Potassium Chloride Carbon Dioxide Anion Gap BUN Creatinine Est GFR ( Amer) Est GFR (Non-Af Amer) Glucose Calcium Phosphorus 2.8 Magnesium 2.1 Stool Occult Blood 02/02/17 02/03/17 02/04/17 21:45 03:50 01:42 Troponin I 0.030 0.066 0.043 02/04/17 02/04/17 02/04/17 04:47 12:32 19:25 Troponin I 0.447 1.640 1.740 02/05/17 02/06/17 01:21 03:55 Troponin I 1.360 0.574 Impressions: Chest/Abdomen CTA 02/04/17 00:00 IMPRESSION: 1. There is no evidence of pulmonary emboli. 2. Small a moderate bilateral pleural effusions. 3. Left lower lobe pneumonia versus atelectasis. Chest X-Ray 02/07/17 06:00 IMPRESSION: Extubated. Nasogastric tube removed. Minimal right basilar airspace disease atelectasis versus pneumonia
[2017-02-10] MEDS: ATORVASTATIN CALCIUM 80 MG TABLET PO SCH (21:40)
[2017-02-10] MEDS: LACTULOSE SYRUP 20 GM/30 ML UDCUP PO SCH (21:48)
[2017-02-11] MEDS: PIPERACILLIN SODIUM/TAZOBACTAM 4.5 GM in NORMAL SALINE 100 ML IV SCH (00:41)
[2017-02-11] MEDS: IPRATROPIUM/ALBUTEROL 0.5-2.5 MG/3 ML AMPUL NEB SCH ×4 (02:25→19:44)
[2017-02-11] MEDS: LANSOPRAZOLE 15 MG TAB.RAP.DR PO SCH (05:17)
[2017-02-11] MEDS: GABAPENTIN 300 MG CAPSULE PO SCH ×3 (05:17→21:31)
[2017-02-11] MEDS: METHYLPREDNISOLONE INJ 125 MG/2 ML SDV IV SCH (05:18)
[2017-02-11 06:08] LABS: HEMATOCRIT 41.4 % (37.9-51.0); HEMOGLOBIN 14.2 g/dL (13.5-17.0); MEAN CORPUSCULAR HEMOGLOBIN 32.9 pg (27.0-33.4); MEAN CORPUSCULAR HGB CONC 34.2 g/dL (32.0-36.0); MEAN CORPUSCULAR VOLUME 96 fl (80-97); PLATELET COUNT 210 10^3/uL (150-450); RED BLOOD COUNT 4.32 10^6/uL (4.35-5.55)
[2017-02-11] MEDS: ACETYLCYSTEINE 20% SOLN 800 MG/4 ML VIAL.NEB NEB SCH ×2 (07:57→19:44)
[2017-02-11 09:18] LABS: ANION GAP 7 (5-19); BLOOD UREA NITROGEN 21 mg/dL (7-20); CALCIUM 8.9 mg/dL (8.4-10.2); CARBON DIOXIDE 31 mmol/L (22-30); CHLORIDE 97 mmol/L (98-107); GLUCOSE 263 mg/dL (75-110); POTASSIUM 4.3 mmol/L (3.6-5.0); SODIUM 134.7 mmol/L (137-145)
[2017-02-11] MEDS: INSULIN LISPRO 100 UNIT/ML 3 ML VIAL SUBCUT PRN ×4 (09:55→21:30)
[2017-02-11] MEDS: ENOXAPARIN SODIUM INJ 40 MG/0.4 ML DISP.SYRIN SUBCUT SCH (09:55)
[2017-02-11] MEDS: LACTOBACILLUS ACIDOPHILUS 250 MG TAB PO SCH ×2 (09:55→17:40)
[2017-02-11] MEDS: ASPIRIN 81 MG TABLET, ENT COATED PO SCH (09:55)
[2017-02-11] MEDS: GUAIFENESIN 600 MG TABLET.SA PO SCH ×2 (09:55→21:31)
[2017-02-11] MEDS: POTASSIUM CHLORIDE 20 MEQ/15 ML UDCUP PO SCH (09:56)
[2017-02-11] MEDS: TAMSULOSIN HCL 0.4 MG CAP.SR.24H PO SCH (09:56)
[2017-02-11] MEDS: METOPROLOL SUCCINATE 25 MG TAB.SR.24H PO SCH ×2 (09:56→21:39)
[2017-02-11] MEDS: FUROSEMIDE 20 MG TABLET PO SCH (09:56)
[2017-02-11] MEDS: FOLIC ACID 1 MG TABLET NG SCH (09:56)
[2017-02-11] MEDS: THIAMINE HCL 100 MG TABLET NG SCH (09:56)
[2017-02-11] MEDS: SACUBITRIL/VALSARTAN 24 MG/26 MG TABLET PO SCH ×2 (09:59→21:36)
[2017-02-11 10:51] LABS: APPEARANCE,URINE SLIGHTLY-CLOUDY; BILIRUBIN,URINE NEGATIVE (NEGATIVE); COLOR,URINE YELLOW; GLUCOSE, URINE >=500 mg/dL (NEGATIVE); KETONES,URINE NEGATIVE (NEGATIVE); LEUKOCYTE ESTERASE,URINE SMALL (NEGATIVE); NITRITE,URINE NEGATIVE (NEGATIVE); PROTEIN,URINE NEGATIVE (NEGATIVE); URINE SPECIFIC GRAVITY 1.029; UROBILINOGEN,URINE NEGATIVE mg/dL (<2.0)
[2017-02-11] MEDS: INSULIN GLARGINE,HUM.REC.ANLOG 300 UNIT/3 ML INSULN.PEN SUBCUT SCH (12:48)
--- NOTE | 2017-02-11 12:55 | PDOC PROGRESS REPORT ---
Subjective Progress Note for:: 02/11/17 Subjective:: 61-year-old male with a history of alcohol and tobacco abuse who was admitted to the hospital after being found unresponsive. He was found to have a right lower lobe pneumonia secondary to hypercapnia that he also had a type II myocardial infarction due to sepsis. He was initially intubated and was given tube feeds. He was eventually extubated on February 06. He has had generalized weakness. He will most likely require subacute rehabilitation. Continue physical therapy. Plan is for a stress test on February 12. No complaints at present. Reason For Visit: PNEUMONIA Physical Exam Vital Signs: Temp Pulse Resp BP Pulse Ox 97.5 F 73 22 H 118/67 100 02/11/17 08:04 02/11/17 08:04 02/11/17 08:04 02/11/17 08:04 02/11/17 08:04 Intake & Output 02/10/17 02/11/17 02/12/17 06:59 06:59 06:59 Intake Total 1674 1543 Output Total 1600 200 Balance 74 1343 Weight 76.1 kg 78 kg Additional comments: Middle-aged gentleman sitting up in bed not in acute distress Lungs: Coarse breath sounds bilaterally with scattered rhonchi, normal respiratory effort Cardiac: S1-S2 regular no murmurs or no peripheral edema no cyanosis Abdomen: Soft, no focal tenderness Bowel sounds heard Results Laboratory Results: 02/11/17 05:47 02/11/17 08:29 02/11/17 02/11/17 02/11/17 05:47 08:29 10:33 WBC 22.0 H RBC 4.32 L Hgb 14.2 Hct 41.4 MCV 96 MCH 32.9 MCHC 34.2 RDW 15.0 H Plt Count 210 Sodium 134.7 L Potassium 4.3 Chloride 97 L Carbon Dioxide 31 H Anion Gap 7 BUN 21 H Creatinine 0.71 Est GFR ( Amer) > 60 Est GFR (Non-Af Amer) > 60 Glucose 263 H Calcium 8.9 Urine Color YELLOW Urine Appearance SLIGHTLY-CLOUDY Urine pH 6.0 Ur Specific [place] 1.029 Urine Protein NEGATIVE Urine Glucose (UA) >=500 H Urine Ketones NEGATIVE Urine Blood SMALL H Urine Nitrite NEGATIVE Ur Leukocyte Esterase SMALL H Urine WBC (Auto) 75 Urine RBC (Auto) 23 02/02/17 02/03/17 02/04/17 21:45 03:50 01:42 Troponin I 0.030 0.066 0.043 02/04/17 02/04/17 02/04/17 04:47 12:32 19:25 Troponin I 0.447 1.640 1.740 02/05/17 02/06/17 01:21 03:55 Troponin I 1.360 0.574 Impressions: Chest/Abdomen CTA 02/04/17 00:00 IMPRESSION: 1. There is no evidence of pulmonary emboli. 2. Small a moderate bilateral pleural effusions. 3. Left lower lobe pneumonia versus atelectasis. Chest X-Ray 02/07/17 06:00 IMPRESSION: Extubated. Nasogastric tube removed. 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: unspecified longterm insulin use status Qualified Code(s): E11.8 - Type 2 diabetes mellitus with unspecified complications Is this a current diagnosis for this admission?: Yes (6) NSTEMI (non-ST elevated myocardial infarction) Is this a current diagnosis for this admission?: Yes (7) Pneumonia Qualifiers: Pneumonia type: due to unspecified organism Laterality: right Lung location: lower lobe of lung Qualified Code(s): J18.1 - Lobar pneumonia, unspecified organism Is this a current diagnosis for this admission?: Yes - Time Time Spent with patient: 25-34 minutes - Plan Summary Plan Summary: Continue Flomax for BPH Continue thiamine and folic acid. Continue Lasix 20 mg daily He is on enterostomal and Lasix and metoprolol. The patient has completed a course of antibiotics. Steroids are being tapered since he was on very high-dose steroids and this may have contributed to his weakness.
--- NOTE | 2017-02-11 15:48 | PROGRESS NOTE E ---
Progress Note NAME: TAMMY RICHARDS : 1955 AGE: 61Y DATE: 02/11/2017 ROOM: 308 SUBJECTIVE: The patient denies any chest pain or discomfort. There is no shortness of breath. There is no PND or orthopnea. Denies any cough. There is no pedal edema. There are no palpitations. The patient remains in sinus rhythm. There is no ventricular arrhythmia seen on the monitor. There are no TIA or CVA symptoms. OBJECTIVE: GENERAL: On examination, the patient is of frail built and appears to be chronically ill. He is better groomed today. VITAL SIGNS: He is afebrile with a temperature of 97.5 degrees Fahrenheit. Pulse is 73 beats per minute. Blood pressure is 118/67. Respirations are 20 per minute. O2 saturations are 100% on 2 liters nasal cannula. HEAD: Atraumatic/normocephalic. EYES: Pupils are equal, round, regular, reactive to light and accommodation. Extraocular movements are normal. There is no conjunctival pallor. There is no scleral icterus. EARS, NOSE, AND THROAT: Negative. NECK: Supple. There is no JVD. Carotids are equal. There is no bruit. There is no goiter. There is no lymphadenopathy. LUNGS: There are no accessory muscles of respirations used. There is diminished air entry and prolonged expiration on auscultation. On percussion, there is hyperresonance. On auscultation, there are no rhonchi, rales, or wheezing. HEART: S1, S2 is heard. There is no S3 gallop. There is no S4 gallop. There is a systolic murmur in the left sternal border and the apex. There is no rub. ABDOMEN: Soft, nontender. There is no hepatosplenomegaly. Bowel sounds are well heard. There is no guarding or rigidity. There is no hepatosplenomegaly. EXTREMITIES: Femorals are diminished. There is no femoral bruit. Leg pulses are diminished. There is no pedal edema. There is no cyanosis or clubbing. There is no DVT or cellulitis. There is no calf tenderness. CENTRAL NERVOUS SYSTEM: The patient is conscious, at present seems to be oriented x3 with no focal deficit. PSYCHIATRIC: The patient's judgement and insight are intact but is of slow mentation. DIAGNOSTIC DATA: The patient's white count is 22,000, hemoglobin is 14.2, hematocrit is 41.4, platelet count is 210,000. The patient's sodium is 134.7, potassium 4.3, chloride 97, CO2 is 31, the patient's BUN is 21, creatinine is 0.71, GFR is greater than 60, glucose is 263, calcium is 8.9. IMPRESSION: 1. HYPOKALEMIA, RESOLVED; POTASSIUM NOW NORMAL. 2. PNEUMONIA, SEEMS TO HAVE RESOLVED. 3. ELEVATED TROPONIN-I. THIS IS NOT A [id number] ME. THIS IS SECONDARY TO PATIENT'S CARDIOMYOPATHY, PNEUMONIA, SEPSIS, HYPOXEMIA, AND HYPERCAPNIA, BUT I WOULD RECOMMEND THAT THE PATIENT HAVE AN IV LEXISCAN CARDIOLITE STRESS TEST WHICH IS BEING SCHEDULED FOR TOMORROW. 4. ACUTE RESPIRATORY FAILURE WITH HYPOXEMIC HYPERCAPNIA, IMPROVED. THE PATIENT IS BACK TO BASELINE. 5. ENCEPHALOPATHY, NOW SEEMS TO BE MUCH IMPROVED. 6. DIABETES MELLITUS. BLOOD PRESSURE IS NOT WELL CONTROLLED. 7. HISTORY OF ETOH ABUSE. 8. HISTORY OF TOBACCO ABUSE. 9. CARDIOMYOPATHY. 10. COPD. 11. SEPSIS, THIS SEEMS TO HAVE RESOLVED. RECOMMENDATIONS: Continue respiratory treatments and nebulizer treatments and antibiotics. Continue anti-diabetic medication. Continue metoprolol at 25 mg p.o. q.12 h. and the patient also is on *------*. Note, the patient is scheduled for IV Lexiscan Cardiolite stress test in the a.m. The stress test was discussed with the patient including the procedure, risks, benefits, and complications of stress test were discussed in detail. Note, 35 minutes spent on this patient with more than 50% of the time spent in direct patient care. His medications have been reviewed. Discussed the management plan with the other care giving providers. Dr. Xiong will follow the patient from the morning. Note that the patient is a FULL CODE. His daughter is his surrogate healthcare decision maker. DICTATING PHYSICIAN: KARSON CASTILLO M.D. [id number] PHY#: [id number] ID: [id number] JOB#: [id number] ACCT: [id number] cc:KARSON CASTILLO M.D. >
[2017-02-11] MEDS: LACTULOSE SYRUP 20 GM/30 ML UDCUP PO SCH (21:31)
[2017-02-11] MEDS: ATORVASTATIN CALCIUM 80 MG TABLET PO SCH (21:36)
[2017-02-12] MEDS: INSULIN LISPRO 100 UNIT/ML 3 ML VIAL SUBCUT PRN ×3 (01:41→22:24)
[2017-02-12] MEDS: IPRATROPIUM/ALBUTEROL 0.5-2.5 MG/3 ML AMPUL NEB SCH ×4 (01:44→20:41)
[2017-02-12] MEDS: LANSOPRAZOLE 15 MG TAB.RAP.DR PO SCH (05:54)
[2017-02-12] MEDS: GABAPENTIN 300 MG CAPSULE PO SCH ×3 (05:54→22:26)
[2017-02-12] MEDS: ACETYLCYSTEINE 20% SOLN 800 MG/4 ML VIAL.NEB NEB SCH ×2 (08:05→20:41)
--- NOTE | 2017-02-12 10:15 | PDOC PROGRESS REPORT ---
Subjective Progress Note for:: 02/12/17 Subjective:: 61-year-old male with a history of alcohol and tobacco abuse who was admitted to the hospital after being found unresponsive. He was found to have a right lower lobe pneumonia secondary to hypercapnia that he also had a type II myocardial infarction due to sepsis requiring intubation and ICU management. He was extubated on February 06. He has had generalized weakness. He will most likely require subacute rehabilitation. Continue physical therapy. Plan is for a stress test today = Reason For Visit: PNEUMONIA Physical Exam Vital Signs: Temp Pulse Resp BP Pulse Ox 97.7 F 82 18 112/78 97 02/12/17 07:27 02/12/17 08:08 02/12/17 08:08 02/12/17 07:27 02/12/17 08:08 Intake & Output 02/11/17 02/12/17 02/13/17 06:59 06:59 06:59 Intake Total 1543 1702 Output Total 200 1650 Balance 1343 52 Weight 78 kg 79.7 kg Additional comments: Middle-aged gentleman sitting up at the side of the bed. Lungs: Respiratory effort, coarse breath sounds bilaterally with scattered rhonchi Cardiac: S1-S2 regular no murmurs or no peripheral edema no cyanosis Abdomen: Soft, no focal tenderness, Bowel sounds normal Results Laboratory Results: 02/11/17 05:47 02/12/17 09:05 02/11/17 02/12/17 10:33 09:05 Sodium Cancelled Potassium Cancelled Chloride Cancelled Carbon Dioxide Cancelled Anion Gap Cancelled BUN Cancelled Creatinine Cancelled Est GFR ( Amer) Cancelled Est GFR (Non-Af Amer) Cancelled Glucose Cancelled Calcium Cancelled Urine Color YELLOW Urine Appearance SLIGHTLY-CLOUDY Urine pH 6.0 Ur Specific [place] 1.029 Urine Protein NEGATIVE Urine Glucose (UA) >=500 H Urine Ketones NEGATIVE Urine Blood SMALL H Urine Nitrite NEGATIVE Ur Leukocyte Esterase SMALL H Urine WBC (Auto) 75 Urine RBC (Auto) 23 02/02/17 02/03/17 02/04/17 21:45 03:50 01:42 Troponin I 0.030 0.066 0.043 02/04/17 02/04/17 02/04/17 04:47 12:32 19:25 Troponin I 0.447 1.640 1.740 02/05/17 02/06/17 01:21 03:55 Troponin I 1.360 0.574 Impressions: Chest/Abdomen CTA 02/04/17 00:00 IMPRESSION: 1. There is no evidence of pulmonary emboli. 2. Small a moderate bilateral pleural effusions. 3. Left lower lobe pneumonia versus atelectasis. Chest X-Ray 02/07/17 06:00 IMPRESSION: Extubated. Nasogastric tube removed. Minimal right basilar airspace disease atelectasis versus pneumonia Assessment & Plan - Diagnosis (1) Acute metabolic encephalopathy Is this a current diagnosis for this admission?: Yes Plan: Secondary to sepsis. Improving (2) Acute respiratory failure with hypoxia and hypercapnia Is this a current diagnosis for this admission?: Yes Plan: improving (3) Alcohol abuse Is this a current diagnosis for this admission?: Yes Plan: Continue thiamine and folic acid supplementation. (4) Critical illness myopathy Is this a current diagnosis for this admission?: Yes Plan: Continue physical therapy. Will need rehab. 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 Lantus and insulin sliding scale. (6) NSTEMI (non-ST elevated myocardial infarction) Is this a current diagnosis for this admission?: Yes Plan: Type II [place] secondary to sepsis. Continue current medications. Stress test today. Cardiology input appreciated. (7) Pneumonia Qualifiers: Pneumonia type: due to unspecified organism Laterality: right Lung location: lower lobe of lung Qualified Code(s): J18.1 - Lobar pneumonia, unspecified organism Is this a current diagnosis for this admission?: Yes Plan: completed a course of antibiotics. (8) Leucocytosis Qualifiers: Leukocytosis type: unspecified Qualified Code(s): D72.829 - Elevated white blood cell count, unspecified Is this a current diagnosis for this admission?: Yes Plan: Most likely due to steroids. These are being tapered. He is afebrile. - Time Time Spent with patient: 25-34 minutes
[2017-02-12] MEDS: PREDNISONE 20 MG TABLET PO SCH (10:48)
[2017-02-12] MEDS: METOPROLOL SUCCINATE 25 MG TAB.SR.24H PO SCH ×2 (10:48→22:27)
[2017-02-12] MEDS: ASPIRIN 81 MG TABLET, ENT COATED PO SCH (10:49)
[2017-02-12] MEDS: GUAIFENESIN 600 MG TABLET.SA PO SCH ×2 (10:49→22:26)
[2017-02-12] MEDS: FOLIC ACID 1 MG TABLET NG SCH (10:49)
[2017-02-12] MEDS: TAMSULOSIN HCL 0.4 MG CAP.SR.24H PO SCH (10:50)
[2017-02-12] MEDS: FUROSEMIDE 20 MG TABLET PO SCH (10:50)
[2017-02-12] MEDS: POTASSIUM CHLORIDE 20 MEQ/15 ML UDCUP PO SCH (10:50)
[2017-02-12] MEDS: ENOXAPARIN SODIUM INJ 40 MG/0.4 ML DISP.SYRIN SUBCUT SCH (10:51)
[2017-02-12] MEDS: THIAMINE HCL 100 MG TABLET NG SCH (10:51)
[2017-02-12] MEDS: LACTOBACILLUS ACIDOPHILUS 250 MG TAB PO SCH ×2 (10:51→18:17)
[2017-02-12] MEDS: SACUBITRIL/VALSARTAN 24 MG/26 MG TABLET PO SCH ×2 (10:52→22:26)
--- NOTE | 2017-02-12 13:08 | DRAGON STRESS TEST REPORT ---
INTRAVENOUS LEXISCAN CARDIOLITE STRESS TEST USING SINGLE PHOTON EMMISION COMPUTERIZED TOMOGRAPHIC. DATE OF PROCEDURE: February 12, 2017 INDICATION : Shortness of breath CARDIAC RISK FACTORS: Diabetes, dyslipidemia, tobacco abuse, history of stents and CHF RESTING EKG: Sinus rhythm, minor nonspecific ST-T changes noted. STRESS EKG: No significant changes noted with LexiScan bolus REASON FOR TERMINATION: Protocol. PROCEDURE REPORT: Baseline heart rate 84 beats per minute with blood pressure of 107/63. Patient had no significant complaints. Heart rate at 2 minutes post bolus 103 with a blood pressure of 113/68. 3 minutes post bolus heart rate 100 with blood pressure of 114/67. No significant EKG changes were noted. Patient had no significant complaints during the procedure or postprocedure. Patient injected with Aminophyllin 75 mg at 3 minutes or later after Lexiscan bolus. CONCLUSIONS: Normal EKG and hemodynamic response to IV LexiScan. NUCLEAR DATA: At rest the patient was given 10.56 millicuries of technetium 99 sestamibi injected intravenously. As per protocol rest gated SPECT images were obtained. Subsequently the patient was given intravenous LexiScan at a dose of 0.4 mg in 5 mL intravenously, followed by flush with normal saline. Subsequently the stress dose of 32.1 millicuries of technetium 99 sestamibi was injected intravenously. As per protocol stress gated images were obtained. NUCLEAR INTERPRETATION: Both raw and processed data were used for interpretation. Visual, qualitative, computer-generated quantitative data was used. There was good myocardial uptake of technetium compound. Motion artifact and soft tissue attenuations were noted. Increased visceral uptake was noted. No definitive areas of transient perfusion defect noted. Mild to moderate fixed defect noted in the LV apex and basal lateral wall. EKG gated imaging showed LV EF at 38 %, rest and stress gated EF similar visually. T. I D. ratio was 1.08. Lung heart ratio noted to be within normal limits 0.49. No significant extracardiac and abnormal radiotracer activities were noted. RV free wall uptake was noted to be WNL. IMPRESSION: Also refer to comments under nuclear interpretation. Also test results needs to be interpreted in the context of pretest probability. 1. There is no definitive scintigraphic evidence of LexiScan induced myocardial ischemia. 2. Scintigraphic evidence of myocardial infarction/scar noted involving the small area of the LV apex and also a small area basal lateral wall. 3. EKG gated imaging shows left ventricular ejection fraction of approximately 38 %. Lung heart ratio noted to be on the high side. Consider CHF or interstitial lung disease. 4. Clinical correlation requested as occasionally single vessel disease or balanced ischemia could be missed. In approximately 10% of the cases Lexiscan may not cause adequate vasodilatory stress. RECOMMENDATIONS: Aggressive risk factor modification, medical therapy. Clinical correlation with echocardiogram derived ejection fraction. Inability to exercise by itself can lead to increased cardiovascular event risks. Patient would also need to be informed that occasionally balanced ischemia could be missed. Consider cardiology consultation and or follow-up if clinically indicated. I AM AVAILABLE FOR CARDIOLOGY CONSULTATION AND FOLLOWUP IF REQUESTED BY PMD Al Xiong M.D., SHAJI Glass Mold Repairer grain elevator worker, Board certified in cardiovascular diseases, Nuclear cardiology, Echocardiography Cardiac CT and cardiac MRI Ph. [phone] SANYA
[2017-02-12 13:19] LABS: ANION GAP 5 (5-19); BLOOD UREA NITROGEN 20 mg/dL (7-20); CARBON DIOXIDE 35 mmol/L (22-30); CHLORIDE 97 mmol/L (98-107); GLUCOSE 83 mg/dL (75-110); POTASSIUM 3.8 mmol/L (3.6-5.0); SODIUM 136.6 mmol/L (137-145)
--- NOTE | 2017-02-12 13:20 | PDOC PROGRESS REPORT ---
Subjective Progress Note for:: 02/12/17 Subjective:: Patient complains of intermittent chest discomfort but no exertional component. He does describe history of acid reflux and hiatal hernia. In the morning nuclear stress test procedure, risks and benefits were discussed. Patient did undergo nuclear stress test without any complications. Reason For Visit: PNEUMONIA Physical Exam Vital Signs: Temp Pulse Resp BP Pulse Ox 97.7 F 83 20 114/58 L 88 L 02/12/17 12:01 02/12/17 12:01 02/12/17 12:01 02/12/17 12:01 02/12/17 12:01 Intake & Output 02/11/17 02/12/17 02/13/17 06:59 06:59 06:59 Intake Total 1543 1702 695 Output Total 200 1650 Balance 1343 52 695 Weight 78 kg 79.7 kg Exam: GENERAL: well-nourished and in no acute distress. Alert and oriented x3 HEAD: Atraumatic, normocephalic. EYES: Pupils equal round and reactive to light, extraocular movements intact, sclera anicteric, conjunctiva are normal. ENT: TMs normal, nares patent, oropharynx clear without exudates. Moist mucous membranes. No oral ulcerations or bleeding gums noted NECK: supple without lymphadenopathy. Trachea is central. No cervical or axillary lymphadenopathy noted. Carotids are 2+, JVD WNL LUNGS: Respiration seems nonlabored, no significant accessory muscle action noted. Breath sounds clear to auscultation bilaterally and equal noted. No wheezes rales or rhonchi noted. No significant dullness noted on percussion. CHEST: Palpation of the chest wall shows no significant chest wall tenderness. No other significant abnormalities noted. 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 ABDOMEN: Soft, no significant tenderness appreciated, normoactive bowel sounds. No guarding, no rebound. No rigidity noted . No masses appreciated. EXTREMITIES: Pedal pulses are 1-2+, no calf tenderness noted. No clubbing or cyanosis.trace to 1+ pedal edema noted NEUROLOGICAL: Focused neurological exam showed no significant neurologic deficit. Normal speech, no focal weakness appreciated. PSYCH: Normal mood, normal affect. Judgment and insight within normal limits. SKIN: No significant ecchymosis, rash, ulcerations or signs of pruritus noted. MUSCULOSKELETAL EXAM: No significant joint swelling noted. Results Laboratory Results: 02/11/17 05:47 02/12/17 09:05 Sodium Cancelled Potassium Cancelled Chloride Cancelled Carbon Dioxide Cancelled Anion Gap Cancelled BUN Cancelled Creatinine Cancelled Est GFR ( Amer) Cancelled Est GFR (Non-Af Amer) Cancelled Glucose Cancelled Calcium Cancelled 02/02/17 02/03/17 02/04/17 21:45 03:50 01:42 Troponin I 0.030 0.066 0.043 02/04/17 02/04/17 02/04/17 04:47 12:32 19:25 Troponin I 0.447 1.640 1.740 02/05/17 02/06/17 01:21 03:55 Troponin I 1.360 0.574 EKG Comments: Telemetry strips reviewed showed sinus rhythm without any sustained tachycardia or bradycardia arrhythmias. Impressions: Chest/Abdomen CTA 02/04/17 00:00 IMPRESSION: 1. There is no evidence of pulmonary emboli. 2. Small a moderate bilateral pleural effusions. 3. Left lower lobe pneumonia versus atelectasis. Chest X-Ray 02/07/17 06:00 IMPRESSION: Extubated. Nasogastric tube removed. Minimal right basilar airspace disease atelectasis versus pneumonia Assessment & Plan - Diagnosis (1) Coronary artery disease Qualifiers: Coronary Disease-Associated Artery/Lesion type: [place] artery [place] vs. transplanted heart: [place] heart Associated angina: angina presence unspecified Qualified Code(s): I25.10 - Atherosclerotic heart disease of [place] coronary artery without angina pectoris Is this a current diagnosis for this admission?: Yes (2) Elevated troponin Is this a current diagnosis for this admission?: Yes (3) NSTEMI (non-ST elevated myocardial infarction) Is this a current diagnosis for this admission?: Yes (4) Acute respiratory failure with hypoxia and hypercapnia Is this a current diagnosis for this admission?: Yes (5) Diabetes mellitus Qualifiers: Diabetes mellitus type: type 2 Diabetes mellitus complication status: with unspecified complications 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 It showed no definite ischemia but did show depressed LVEF, somewhat increased lung uptake and small area of fixed defect involving the LV apex and basal lateral wall. This indicates prior myocardial infarction. Based on nuclear stress test, initial preferred option will be aggressive risk factor modification and medical management. However should patient continue to have significant chest discomfort which is uncontrolled by medical therapy then would consider transfer to tertiary care for heart catheterization. Patient's medical therapy reviewed and he seems to be on an excellent regimen. Could consider adding Ranexa if patient has recurrent chest pain. Coronary artery disease: Patient has known history of CAD and is status post stent and also possible prior myocardial infarction. Patient medical therapy would need to be optimized. Recommend antiplatelet, statins, beta-leslie and LIANE inhibitors if there are no contraindication. Dose to be increased as tolerated. Elevated troponin I: Exact etiology not clear but could be related to metabolic reasons but could well be related to underlying CAD. Non-STEMI: Possibly type II. Optimize medical therapy. Acute respiratory failure with hypoxemia and hypercapnia: This has improved. Diabetes: Recommend good control but avoid any hyper or hypoglycemia. - Time Time with patient: Greater than 35 minutes - Significant time spent discussing results with the patient, review of medical therapy and medications. Medications reviewed and adjusted accordingly: Yes
[2017-02-12] MEDS: INSULIN GLARGINE,HUM.REC.ANLOG 300 UNIT/3 ML INSULN.PEN SUBCUT SCH (13:24)
[2017-02-12] MEDS ORDERED: REGADENOSON INJ 0.4 MG/5 ML DISP.SYRIN IV ONE (13:44)
[2017-02-12] MEDS ORDERED: AMINOPHYLLINE INJ/PF 250 MG/10 ML SDV IV ONE (13:44)
--- NOTE | 2017-02-12 18:36 | PDOC PROGRESS REPORT ---
Subjective Progress Note for:: 02/12/17 Subjective:: slightly confused Reason For Visit: PNEUMONIA Physical Exam Vital Signs: Temp Pulse Resp BP Pulse Ox 97.7 F 82 18 112/78 97 02/12/17 07:27 02/12/17 08:08 02/12/17 08:08 02/12/17 07:27 02/12/17 08:08 Intake & Output 02/11/17 02/12/17 02/13/17 06:59 06:59 06:59 Intake Total 1543 1702 Output Total 200 1650 Balance 1343 52 Weight 78 kg 79.7 kg General appearance: PRESENT: no acute distress, cooperative, disheveled, well- developed, well-nourished Head exam: PRESENT: atraumatic, normocephalic Eye exam: PRESENT: conjunctiva pale, EOMI Mouth exam: PRESENT: dry mucosa, neck supple, tongue midline. ABSENT: laceration, moist Neck exam: ABSENT: carotid bruit, JVD, lymphadenopathy, thyromegaly, tracheal deviation, tracheostomy Respiratory exam: PRESENT: decreased breath sounds, prolonged expiratory phas, rhonchi, unlabored. ABSENT: accessory muscle use, chest wall tenderness, clear to auscultation vangie, crackles, tachypnea Cardiovascular exam: PRESENT: RRR, +S2. ABSENT: rubs Pulses: PRESENT: normal radial pulses GI/Abdominal exam: PRESENT: normal bowel sounds, soft. ABSENT: distended, guarding, mass, organolmegaly, rebound, tenderness Extremities exam: ABSENT: clubbing, joint swelling Musculoskeletal exam: ABSENT: deformity Neurological exam: PRESENT: awake Skin exam: PRESENT: dry, warm Results Laboratory Results: 02/11/17 05:47 02/12/17 09:05 02/11/17 02/12/17 10:33 09:05 Sodium Cancelled Potassium Cancelled Chloride Cancelled Carbon Dioxide Cancelled Anion Gap Cancelled BUN Cancelled Creatinine Cancelled Est GFR ( Amer) Cancelled Est GFR (Non-Af Amer) Cancelled Glucose Cancelled Calcium Cancelled Urine Color YELLOW Urine Appearance SLIGHTLY-CLOUDY Urine pH 6.0 Ur Specific Ranger 1.029 Urine Protein NEGATIVE Urine Glucose (UA) >=500 H Urine Ketones NEGATIVE Urine Blood SMALL H Urine Nitrite NEGATIVE Ur Leukocyte Esterase SMALL H Urine WBC (Auto) 75 Urine RBC (Auto) 23 02/02/17 02/03/17 02/04/17 21:45 03:50 01:42 Troponin I 0.030 0.066 0.043 02/04/17 02/04/17 02/04/17 04:47 12:32 19:25 Troponin I 0.447 1.640 1.740 02/05/17 02/06/17 01:21 03:55 Troponin I 1.360 0.574 Impressions: Chest/Abdomen CTA 02/04/17 00:00 IMPRESSION: 1. There is no evidence of pulmonary emboli. 2. Small a moderate bilateral pleural effusions. 3. Left lower lobe pneumonia versus atelectasis. Chest X-Ray 02/07/17 06:00 IMPRESSION: Extubated. Nasogastric tube removed. Minimal right basilar airspace disease atelectasis versus pneumonia Assessment & Plan - Diagnosis (1) Acute respiratory failure with hypoxia and hypercapnia Is this a current diagnosis for this admission?: Yes Plan: Improving FiO2 remains elevated minute ventilation respiratory rate have improved (2) Pneumonia Qualifiers: Pneumonia type: due to unspecified organism Laterality: right Lung location: lower lobe of lung Qualified Code(s): J18.1 - Lobar pneumonia, unspecified organism Is this a current diagnosis for this admission?: Yes Plan: Suspect aspiration but no positive cultures thus far (3) Sepsis Qualifiers: Sepsis type: sepsis due to unspecified organism Qualified Code(s): A41.9 - Sepsis, unspecified organism Is this a current diagnosis for this admission?: Yes Plan: Stable
[2017-02-12] MEDS: LACTULOSE SYRUP 20 GM/30 ML UDCUP PO SCH (22:27)
[2017-02-12] MEDS: ATORVASTATIN CALCIUM 80 MG TABLET PO SCH (22:27)
[2017-02-13] MEDS: IPRATROPIUM/ALBUTEROL 0.5-2.5 MG/3 ML AMPUL NEB SCH ×4 (01:33→20:52)
[2017-02-13 05:07] LABS: HEMATOCRIT 39.4 % (37.9-51.0); HEMOGLOBIN 13.1 g/dL (13.5-17.0); MEAN CORPUSCULAR HEMOGLOBIN 32.3 pg (27.0-33.4); MEAN CORPUSCULAR HGB CONC 33.2 g/dL (32.0-36.0); MEAN CORPUSCULAR VOLUME 97 fl (80-97); PLATELET COUNT 228 10^3/uL (150-450); RED BLOOD COUNT 4.04 10^6/uL (4.35-5.55); RED CELL DISTRIBUTION WIDTH 14.9 % (11.5-14.0); WHITE BLOOD COUNT 24.1 10^3/uL (4.0-10.5)
[2017-02-13] MEDS: GABAPENTIN 300 MG CAPSULE PO SCH ×3 (07:29→22:27)
[2017-02-13] MEDS: LANSOPRAZOLE 15 MG TAB.RAP.DR PO SCH (07:29)
[2017-02-13] MEDS: ACETYLCYSTEINE 20% SOLN 800 MG/4 ML VIAL.NEB NEB SCH ×2 (08:42→20:51)
[2017-02-13 10:12] LABS: ANION GAP 6 (5-19); BLOOD UREA NITROGEN 21 mg/dL (7-20); CALCIUM 8.6 mg/dL (8.4-10.2); CARBON DIOXIDE 29 mmol/L (22-30); CHLORIDE 100 mmol/L (98-107); GLUCOSE 111 mg/dL (75-110); POTASSIUM 4.5 mmol/L (3.6-5.0); SODIUM 134.6 mmol/L (137-145)
[2017-02-13] MEDS: PREDNISONE 20 MG TABLET PO SCH (10:23)
[2017-02-13] MEDS: METOPROLOL SUCCINATE 25 MG TAB.SR.24H PO SCH ×2 (10:24→22:27)
[2017-02-13] MEDS: FOLIC ACID 1 MG TABLET NG SCH (10:24)
[2017-02-13] MEDS: FUROSEMIDE 20 MG TABLET PO SCH (10:25)
[2017-02-13] MEDS: ASPIRIN 81 MG TABLET, ENT COATED PO SCH (10:25)
[2017-02-13] MEDS: GUAIFENESIN 600 MG TABLET.SA PO SCH ×2 (10:25→22:27)
[2017-02-13] MEDS: POTASSIUM CHLORIDE 20 MEQ/15 ML UDCUP PO SCH (10:26)
[2017-02-13] MEDS: TAMSULOSIN HCL 0.4 MG CAP.SR.24H PO SCH (10:26)
[2017-02-13] MEDS: ENOXAPARIN SODIUM INJ 40 MG/0.4 ML DISP.SYRIN SUBCUT SCH (10:26)
[2017-02-13] MEDS: LACTOBACILLUS ACIDOPHILUS 250 MG TAB PO SCH ×2 (10:27→17:56)
[2017-02-13] MEDS: THIAMINE HCL 100 MG TABLET NG SCH (10:27)
[2017-02-13] MEDS: SACUBITRIL/VALSARTAN 24 MG/26 MG TABLET PO SCH ×2 (10:28→22:27)
--- NOTE | 2017-02-13 11:33 | PDOC PROGRESS REPORT ---
Subjective Progress Note for:: 02/13/17 Subjective:: slightly confused Reason For Visit: PNEUMONIA Physical Exam Vital Signs: Temp Pulse Resp BP Pulse Ox 97.8 F 89 18 119/60 97 02/13/17 07:30 02/13/17 07:30 02/13/17 07:30 02/13/17 07:30 02/13/17 07:30 Intake & Output 02/12/17 02/13/17 02/14/17 06:59 06:59 06:59 Intake Total 1702 2405 Output Total 1650 850 Balance 52 1555 Weight 79.7 kg 80.1 kg General appearance: PRESENT: no acute distress, cooperative, disheveled, obese. ABSENT: hard of hearing, mild distress, morbidly obese, severe distress Head exam: PRESENT: atraumatic, normocephalic Eye exam: PRESENT: conjunctiva pale, EOMI. ABSENT: conjunctival injection, conjunctiva pink, nystagmus, periorbital swelling, scleral icterus Mouth exam: PRESENT: dry mucosa, neck supple, tongue midline. ABSENT: laceration, moist Neck exam: ABSENT: carotid bruit, JVD, lymphadenopathy, thyromegaly, tracheal deviation, tracheostomy Respiratory exam: PRESENT: decreased breath sounds, prolonged expiratory phas, rales, rhonchi, symmetrical, unlabored, wheezes. ABSENT: accessory muscle use, chest wall tenderness, clear to auscultation vangie, crackles, retraction, stridor , tachypnea Cardiovascular exam: PRESENT: RRR, +S1, +S2. ABSENT: rubs Pulses: PRESENT: normal radial pulses GI/Abdominal exam: PRESENT: normal bowel sounds, soft. ABSENT: distended, guarding, mass, organolmegaly, rebound, tenderness Extremities exam: ABSENT: clubbing, joint swelling Musculoskeletal exam: ABSENT: deformity, dislocation Neurological exam: PRESENT: awake Skin exam: PRESENT: dry, warm Results Laboratory Results: 02/13/17 04:38 02/12/17 12:09 02/12/17 02/12/17 02/13/17 09:05 12:09 04:38 WBC 24.1 H RBC 4.04 L Hgb 13.1 L Hct 39.4 MCV 97 MCH 32.3 MCHC 33.2 RDW 14.9 H Plt Count 228 Sodium Cancelled 136.6 L Potassium Cancelled 3.8 Chloride Cancelled 97 L Carbon Dioxide Cancelled 35 H Anion Gap Cancelled 5 BUN Cancelled 20 Creatinine Cancelled 0.70 Est GFR ( Amer) Cancelled > 60 Est GFR (Non-Af Amer) Cancelled > 60 Glucose Cancelled 83 Calcium Cancelled 9.0 02/02/17 02/03/17 02/04/17 21:45 03:50 01:42 Troponin I 0.030 0.066 0.043 02/04/17 02/04/17 02/04/17 04:47 12:32 19:25 Troponin I 0.447 1.640 1.740 02/05/17 02/06/17 01:21 03:55 Troponin I 1.360 0.574 Impressions: Chest/Abdomen CTA 02/04/17 00:00 IMPRESSION: 1. There is no evidence of pulmonary emboli. 2. Small a moderate bilateral pleural effusions. 3. Left lower lobe pneumonia versus atelectasis. Chest X-Ray 02/07/17 06:00 IMPRESSION: Extubated. Nasogastric tube removed. Minimal right basilar airspace disease atelectasis versus pneumonia Assessment & Plan - Diagnosis (1) Acute respiratory failure with hypoxia and hypercapnia Is this a current diagnosis for this admission?: Yes Plan: Improving FiO2 remains elevated minute ventilation respiratory rate have improved (2) Pneumonia Qualifiers: Pneumonia type: due to unspecified organism Laterality: right Lung location: lower lobe of lung Qualified Code(s): J18.1 - Lobar pneumonia, unspecified organism Is this a current diagnosis for this admission?: Yes Plan: check cxr (3) Sepsis Qualifiers: Sepsis type: sepsis due to unspecified organism Qualified Code(s): A41.9 - Sepsis, unspecified organism Is this a current diagnosis for this admission?: No Plan: Stable
[2017-02-13] MEDS: INSULIN GLARGINE,HUM.REC.ANLOG 300 UNIT/3 ML INSULN.PEN SUBCUT SCH (12:21)
--- NOTE | 2017-02-13 13:23 | RADIOLOGY REPORT (SQ) ---
EXAM DESCRIPTION: CHEST PA/LAT COMPLETED DATE/TIME: 02/13/2017 1:11 pm REASON FOR STUDY: pna COMPARISON: 02/07/2017 and 02/06/2017. EXAM PARAMETERS: NUMBER OF VIEWS: two views TECHNIQUE: Digital Frontal and Lateral radiographic views of the chest acquired. RADIATION DOSE: NA LIMITATIONS: none FINDINGS: LUNGS AND PLEURA: Improved aeration. Minimal faint density in the left base with small pl eural effusion. MEDIASTINUM AND HILAR STRUCTURES: No masses or contour abnormalities. HEART AND VASCULAR STRUCTURES: Heart normal size. No evidence for failure. BONES: No acute findings. Degenerative changes in the spine. HARDWARE: None in the chest. OTHER: No other significant finding. IMPRESSION: GENERALLY IMPROVED AERATION. MINIMAL RESIDUAL DENSITY IN THE LEFT BASE WITH SMALL PLEUR AL EFFUSION. TECHNICAL DOCUMENTATION: JOB ID: [id number] [employer]- All Rights Reserved
--- NOTE | 2017-02-13 15:26 | PDOC PROGRESS REPORT ---
Subjective Progress Note for:: 02/13/17 Subjective:: The patient is seen on morning rounds. He is found sitting up to the edge of the bed having just finished his breakfast. He is on room air and conversational without dyspnea. He states that he feels fine today and is primarily concerned about some of his personal belongings that may have been left at a hotel. He tells me that he and a friend have been "living on the street" has never been a resident of the [facility]. Otherwise, he has no questions or concerns at this time. Reason For Visit: PNEUMONIA Physical Exam Vital Signs: Temp Pulse Resp BP Pulse Ox 97.8 F 99 18 119/60 97 02/13/17 07:30 02/13/17 08:42 02/13/17 08:42 02/13/17 07:30 02/13/17 08:42 Intake & Output 02/12/17 02/13/17 02/14/17 06:59 06:59 06:59 Intake Total 1702 2405 Output Total 1650 850 Balance 52 1555 Weight 79.7 kg 80.1 kg General appearance: PRESENT: no acute distress, disheveled, well-developed, well -nourished Head exam: PRESENT: atraumatic, normocephalic Eye exam: PRESENT: conjunctiva pink, EOMI, PERRLA. ABSENT: scleral icterus Ear exam: PRESENT: normal external ear exam Mouth exam: PRESENT: moist, tongue midline Neck exam: ABSENT: carotid bruit, JVD, lymphadenopathy, thyromegaly Respiratory exam: PRESENT: clear to auscultation vangie, decreased breath sounds - Bibasilar, rhonchi. ABSENT: rales, wheezes Cardiovascular exam: PRESENT: RRR. ABSENT: diastolic murmur, rubs, systolic murmur Pulses: PRESENT: normal dorsalis pedis pul Vascular exam: PRESENT: normal capillary refill GI/Abdominal exam: PRESENT: normal bowel sounds, soft. ABSENT: distended, guarding, mass, organolmegaly, rebound, tenderness Rectal exam: PRESENT: deferred Extremities exam: PRESENT: full ROM. ABSENT: calf tenderness, clubbing, pedal edema Neurological exam: PRESENT: alert, awake, oriented to person, oriented to place , oriented to time, oriented to situation, CN II-XII grossly intact. ABSENT: motor sensory deficit Psychiatric exam: PRESENT: appropriate affect, normal mood. ABSENT: homicidal ideation, suicidal ideation Skin exam: PRESENT: dry, intact, warm. ABSENT: cyanosis, rash Results Laboratory Results: 02/13/17 04:38 02/13/17 09:40 02/12/17 02/13/17 02/13/17 12:09 04:38 09:40 WBC 24.1 H RBC 4.04 L Hgb 13.1 L Hct 39.4 MCV 97 MCH 32.3 MCHC 33.2 RDW 14.9 H Plt Count 228 Sodium 136.6 L 134.6 L Potassium 3.8 4.5 Chloride 97 L 100 Carbon Dioxide 35 H 29 Anion Gap 5 6 BUN 20 21 H Creatinine 0.70 0.65 Est GFR ( Amer) > 60 > 60 Est GFR (Non-Af Amer) > 60 > 60 Glucose 83 111 H Calcium 9.0 8.6 02/02/17 02/03/17 02/04/17 21:45 03:50 01:42 Troponin I 0.030 0.066 0.043 02/04/17 02/04/17 02/04/17 04:47 12:32 19:25 Troponin I 0.447 1.640 1.740 02/05/17 02/06/17 01:21 03:55 Troponin I 1.360 0.574 Impressions: Chest/Abdomen CTA 02/04/17 00:00 IMPRESSION: 1. There is no evidence of pulmonary emboli. 2. Small a moderate bilateral pleural effusions. 3. Left lower lobe pneumonia versus atelectasis. Chest X-Ray 02/07/17 06:00 IMPRESSION: Extubated. Nasogastric tube removed. Minimal right basilar airspace disease atelectasis versus pneumonia Assessment & Plan - Diagnosis (1) Acute respiratory failure with hypoxia and hypercapnia Is this a current diagnosis for this admission?: Yes Plan: Improving. The patient is currently on room air and maintaining oxygen saturations greater than 94%. He denies complaint of dyspnea. Appreciate pulmonary consultation and recommendations. Repeat chest xray today demonstrates increased airation and a small left pleural effusion. The patient continues to receive scheduled DuoNeb treatments and Xopenex as needed. He is receiving Mucinex twice daily, Mucomyst nebulizer treatments twice daily, and prednisone. (2) Alcohol abuse Is this a current diagnosis for this admission?: Yes Plan: Continue thiamine and folic acid supplementation. No evidence of acute withdrawal at this time. (3) Critical illness myopathy Is this a current diagnosis for this admission?: Yes Plan: Continue physical therapy. The patient will need intermediate for rehabilitation on discharge. 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 This may be due to steroids which are currently being tapered. The patient is afebrile and does not show evidence of worsening infection at this time. Will monitor closely. (6) NSTEMI (non-ST elevated myocardial infarction) Is this a current diagnosis for this admission?: Yes Plan: Pt with Type II non-STEMI likely secondary to demand ischemia in the setting of acute respiratory failure, critical illness, pneumonia, and acute renal failure. Cardiolite stress test was completed this morning and demonstrated evidence of a prior LA but no acute processes. The patient is pain free at the moment. He is medically managed with aspirin, metoprolol and a statin. LIANE held secondary to recent kidney injury. (7) Pneumonia Qualifiers: Pneumonia type: due to unspecified organism Laterality: right Lung location: lower lobe of lung Qualified Code(s): J18.1 - Lobar pneumonia, unspecified organism Is this a current diagnosis for this admission?: Yes Plan: Resolved; has received appropriate antibiotic treatments. Appreciate pulmonology consultation and recommendation. - Time Time Spent with patient: 25-34 minutes Medications reviewed and adjusted accordingly: Yes Anticipated discharge: Acute Rehab Within: Other - Once cleared by cardiololgy/pulmonology
--- NOTE | 2017-02-13 19:24 | PDOC PROGRESS REPORT ---
Subjective Progress Note for:: 02/13/17 Subjective:: Patient seems to be doing better with gradual improvement. Pt is denying any chest arm or neck discomfort. Patient denying any PND, orthopnea. Patient denied any sustained palpitations, dizziness, syncope, near syncope. Patient denying any fever chills. Patient denying any other significant discomfort. Patient is maintaining sinus rhythm. Intermittent sinus tachycardia noted. Review of systems: Rest review of systems negative. Medications: Medications have been reviewed. Reason For Visit: PNEUMONIA Physical Exam Vital Signs: Temp Pulse Resp BP Pulse Ox 97.8 F 99 18 119/60 97 02/13/17 07:30 02/13/17 08:42 02/13/17 08:42 02/13/17 07:30 02/13/17 08:42 Intake & Output 02/12/17 02/13/17 02/14/17 06:59 06:59 06:59 Intake Total 1702 2405 Output Total 1650 850 Balance 52 1555 Weight 79.7 kg 80.1 kg Exam: GENERAL: well-nourished and in no acute distress. Alert and oriented x3 HEAD: Atraumatic, normocephalic. EYES: Pupils equal round and reactive to light, extraocular movements intact, sclera anicteric, conjunctiva are normal. ENT: TMs normal, nares patent, oropharynx clear without exudates. Moist mucous membranes. No oral ulcerations or bleeding gums noted NECK: supple without lymphadenopathy. Trachea is central. No cervical or axillary lymphadenopathy noted. Carotids are 2+, JVD WNL LUNGS: Respiration seems nonlabored, no significant accessory muscle action noted. Breath sounds clear to auscultation bilaterally and equal noted. No wheezes rales or rhonchi noted. No significant dullness noted on percussion. CHEST: Palpation of the chest wall shows no significant chest wall tenderness. No other significant abnormalities noted. HEART: [place] CR[employer], No PSH, 1/6 MALIK aortic area, 1/6 mayer systolic murmur mitral area, no rubs, no gallops. ABDOMEN: Soft, no significant tenderness appreciated, normoactive bowel sounds. No guarding, no rebound. No rigidity noted . No masses appreciated. EXTREMITIES: Pedal pulses are 1-2+, no calf tenderness noted. No clubbing or cyanosis.1+ pedal edema noted NEUROLOGICAL: Focused neurological exam showed no significant neurologic deficit. Normal speech, no focal weakness appreciated. PSYCH: Normal mood, normal affect. Judgment and insight within normal limits. SKIN: No significant ecchymosis, rash, ulcerations or signs of pruritus noted. MUSCULOSKELETAL EXAM: No significant joint swelling noted. Additional comments: Peripheral acral cyanosis most likely secondary to venular dilation from dysthymia Results Laboratory Results: 02/13/17 04:38 02/12/17 02/13/17 12:09 04:38 WBC 24.1 H RBC 4.04 L Hgb 13.1 L Hct 39.4 MCV 97 MCH 32.3 MCHC 33.2 RDW 14.9 H Plt Count 228 Sodium 136.6 L Potassium 3.8 Chloride 97 L Carbon Dioxide 35 H Anion Gap 5 BUN 20 Creatinine 0.70 Est GFR ( Amer) > 60 Est GFR (Non-Af Amer) > 60 Glucose 83 Calcium 9.0 02/02/17 02/03/17 02/04/17 21:45 03:50 01:42 Troponin I 0.030 0.066 0.043 02/04/17 02/04/17 02/04/17 04:47 12:32 19:25 Troponin I 0.447 1.640 1.740 02/05/17 02/06/17 01:21 03:55 Troponin I 1.360 0.574 Impressions: Chest/Abdomen CTA 02/04/17 00:00 IMPRESSION: 1. There is no evidence of pulmonary emboli. 2. Small a moderate bilateral pleural effusions. 3. Left lower lobe pneumonia versus atelectasis. Chest X-Ray 02/07/17 06:00 IMPRESSION: Extubated. Nasogastric tube removed. Minimal right basilar airspace disease atelectasis versus pneumonia Assessment & Plan - Diagnosis (1) Coronary artery disease Qualifiers: Coronary Disease-Associated Artery/Lesion type: [place] artery [place] vs. transplanted heart: [place] heart Associated angina: angina presence unspecified Qualified Code(s): I25.10 - Atherosclerotic heart disease of [place] coronary artery without angina pectoris Is this a current diagnosis for this admission?: Yes (2) Elevated troponin Is this a current diagnosis for this admission?: Yes (3) NSTEMI (non-ST elevated myocardial infarction) Is this a current diagnosis for this admission?: Yes (4) Acute respiratory failure with hypoxia and hypercapnia Is this a current diagnosis for this admission?: Yes (5) Diabetes mellitus Qualifiers: Diabetes mellitus type: type 2 Diabetes mellitus complication status: with unspecified complications Diabetes mellitus manager terminal insulin use: unspecified manager terminal insulin use status Qualified Code(s): E11.8 - Type 2 diabetes mellitus with unspecified complications Is this a current diagnosis for this admission?: Yes (7) Cardiomyopathy Qualifiers: Cardiomyopathy type: unspecified Qualified Code(s): I42.9 - Cardiomyopathy , unspecified Is this a current diagnosis for this admission?: Yes - Notes Notes: Patient has shown gradual improvement in his general condition. Medications reviewed. No medication changes performed today. Coronary artery disease: Patient has known history of CAD and is status post stent and also possible prior myocardial infarction. Patient medical therapy would need to be optimized. Recommend antiplatelet, statins, beta-leslie and LIANE inhibitors if there are no contraindication. Dose to be increased as tolerated. Elevated troponin I: Exact etiology not clear but could be related to metabolic reasons but could well be related to underlying CAD. Non-STEMI: Possibly type II. Optimize medical therapy. Acute respiratory failure with hypoxemia and hypercapnia: This has improved. Diabetes: Recommend good control but avoid any hyper or hypoglycemia. Cardiomyopathy: This is based on echocardiogram review. - Time Time with patient: 15-25 minutes Medications reviewed and adjusted accordingly: Yes
[2017-02-13] MEDS: ATORVASTATIN CALCIUM 80 MG TABLET PO SCH (22:27)
[2017-02-13] MEDS: LACTULOSE SYRUP 20 GM/30 ML UDCUP PO SCH (22:27)
[2017-02-13] MEDS: INSULIN LISPRO 100 UNIT/ML 3 ML VIAL SUBCUT PRN (23:11)
[2017-02-14] MEDS: IPRATROPIUM/ALBUTEROL 0.5-2.5 MG/3 ML AMPUL NEB SCH ×4 (02:13→20:13)
[2017-02-14] MEDS: GABAPENTIN 300 MG CAPSULE PO SCH ×3 (05:24→21:05)
[2017-02-14] MEDS: LANSOPRAZOLE 15 MG TAB.RAP.DR PO SCH (05:25)
[2017-02-14] MEDS: ACETYLCYSTEINE 20% SOLN 800 MG/4 ML VIAL.NEB NEB SCH ×2 (07:58→20:13)
[2017-02-14 09:38] LABS: ANION GAP 6 (5-19); BLOOD UREA NITROGEN 18 mg/dL (7-20); CALCIUM 8.3 mg/dL (8.4-10.2); CARBON DIOXIDE 29 mmol/L (22-30); CHLORIDE 96 mmol/L (98-107); GLUCOSE 162 mg/dL (75-110); POTASSIUM 3.9 mmol/L (3.6-5.0); SODIUM 131.4 mmol/L (137-145)
[2017-02-14] MEDS: ENOXAPARIN SODIUM INJ 40 MG/0.4 ML DISP.SYRIN SUBCUT SCH (11:06)
[2017-02-14] MEDS: ASPIRIN 81 MG TABLET, ENT COATED PO SCH (11:07)
[2017-02-14] MEDS: THIAMINE HCL 100 MG TABLET NG SCH (11:07)
[2017-02-14] MEDS: LACTOBACILLUS ACIDOPHILUS 250 MG TAB PO SCH ×2 (11:07→17:10)
[2017-02-14] MEDS: FOLIC ACID 1 MG TABLET NG SCH (11:07)
[2017-02-14] MEDS: GUAIFENESIN 600 MG TABLET.SA PO SCH ×2 (11:08→21:05)
[2017-02-14] MEDS: TAMSULOSIN HCL 0.4 MG CAP.SR.24H PO SCH (11:08)
[2017-02-14] MEDS: POTASSIUM CHLORIDE 20 MEQ/15 ML UDCUP PO SCH (11:08)
[2017-02-14] MEDS: METOPROLOL SUCCINATE 25 MG TAB.SR.24H PO SCH (11:12)
[2017-02-14] MEDS: SACUBITRIL/VALSARTAN 24 MG/26 MG TABLET PO SCH (11:12)
[2017-02-14] MEDS: FUROSEMIDE 20 MG TABLET PO SCH (11:12)
[2017-02-14] MEDS: INSULIN LISPRO 100 UNIT/ML 3 ML VIAL SUBCUT PRN ×2 (12:42→17:09)
[2017-02-14] MEDS: INSULIN GLARGINE,HUM.REC.ANLOG 300 UNIT/3 ML INSULN.PEN SUBCUT SCH (12:42)
--- NOTE | 2017-02-14 12:51 | PDOC PROGRESS REPORT ---
Subjective Progress Note for:: 02/14/17 Subjective:: slightly confused Reason For Visit: PNEUMONIA Physical Exam Vital Signs: Temp Pulse Resp BP Pulse Ox 98.2 F 88 16 104/66 97 02/14/17 07:45 02/14/17 07:58 02/14/17 07:58 02/14/17 07:45 02/14/17 07:45 Intake & Output 02/13/17 02/14/17 02/15/17 06:59 06:59 06:59 Intake Total 2405 1860 Output Total 850 200 Balance 1555 1660 Weight 80.1 kg 80 kg General appearance: PRESENT: no acute distress, cooperative, disheveled, well- developed, well-nourished. ABSENT: mild distress, morbidly obese, obese, severe distress, thin Head exam: PRESENT: atraumatic, normocephalic Eye exam: PRESENT: conjunctiva pale, EOMI. ABSENT: conjunctival injection, conjunctiva pink, nystagmus, periorbital swelling Mouth exam: PRESENT: tongue midline. ABSENT: moist, neck supple Neck exam: ABSENT: carotid bruit, JVD, lymphadenopathy, thyromegaly, tracheal deviation, tracheostomy Respiratory exam: PRESENT: crackles, decreased breath sounds, prolonged expiratory phas, rhonchi, symmetrical, unlabored, wheezes. ABSENT: accessory muscle use, chest wall tenderness, clear to auscultation vangie, stridor, tachypnea Cardiovascular exam: PRESENT: RRR, +S1, +S2 Pulses: PRESENT: normal radial pulses GI/Abdominal exam: PRESENT: normal bowel sounds, soft. ABSENT: distended, guarding, mass, organolmegaly, rebound, tenderness Extremities exam: ABSENT: clubbing, joint swelling Musculoskeletal exam: PRESENT: full ROM. ABSENT: deformity, dislocation Neurological exam: PRESENT: awake Skin exam: PRESENT: dry, warm Results Laboratory Results: 02/13/17 04:38 02/14/17 08:25 02/14/17 08:25 Sodium 131.4 L Potassium 3.9 Chloride 96 L Carbon Dioxide 29 Anion Gap 6 BUN 18 Creatinine 0.68 Est GFR ( Amer) > 60 Est GFR (Non-Af Amer) > 60 Glucose 162 H Calcium 8.3 L 02/02/17 02/03/17 02/04/17 21:45 03:50 01:42 Troponin I 0.030 0.066 0.043 02/04/17 02/04/17 02/04/17 04:47 12:32 19:25 Troponin I 0.447 1.640 1.740 02/05/17 02/06/17 01:21 03:55 Troponin I 1.360 0.574 Impressions: Chest/Abdomen CTA 02/04/17 00:00 IMPRESSION: 1. There is no evidence of pulmonary emboli. 2. Small a moderate bilateral pleural effusions. 3. Left lower lobe pneumonia versus atelectasis. Chest X-Ray 02/13/17 00:00 IMPRESSION: GENERALLY IMPROVED AERATION. MINIMAL RESIDUAL DENSITY IN THE LEFT BASE WITH SMALL PLEURAL EFFUSION. Assessment & Plan - Diagnosis (1) Acute respiratory failure with hypoxia and hypercapnia Is this a current diagnosis for this admission?: Yes Plan: Continue supportive care oxygenate and ventilate As appropriate (2) Pneumonia Qualifiers: Pneumonia type: due to unspecified organism Laterality: right Lung location: lower lobe of lung Qualified Code(s): J18.1 - Lobar pneumonia, unspecified organism Is this a current diagnosis for this admission?: Yes Plan: Awaiting CXR (3) Sepsis Qualifiers: Sepsis type: sepsis due to unspecified organism Qualified Code(s): A41.9 - Sepsis, unspecified organism Is this a current diagnosis for this admission?: No
--- NOTE | 2017-02-14 14:03 | RADIOLOGY REPORT (SQ) ---
EXAM DESCRIPTION: CHEST PA/LAT COMPLETED DATE/TIME: 02/14/2017 1:53 pm REASON FOR STUDY: pna/effusion COMPARISON: 02/13/2017. EXAM PARAMETERS: NUMBER OF VIEWS: two views TECHNIQUE: Digital Frontal and Lateral radiographic views of the chest acquired. RADIATION DOSE: NA LIMITATIONS: none FINDINGS: LUNGS AND PLEURA: Faint density in the left base appears unchanged. Small pleural effusio n has resolved. Right lung is clear. MEDIASTINUM AND HILAR STRUCTURES: No masses or contour abnormalities. HEART AND VASCULAR STRUCTURES: Heart normal size. No evidence for failure. BONES: No acute findings. HARDWARE: None in the chest. OTHER: No other significant finding. IMPRESSION: FAINT DENSITY IN THE LEFT LUNG BASE APPEARS UNCHANGED. THE SMALL PLEURAL EFFUSION HAS R ESOLVED. TECHNICAL DOCUMENTATION: JOB ID: [id number] [employer]- All Rights Reserved
[2017-02-14] MEDS ORDERED: NORMAL SALINE 1000 ML 250 ML IV ONE (16:29)
--- NOTE | 2017-02-14 17:05 | PDOC PROGRESS REPORT ---
Subjective Progress Note for:: 02/14/17 Subjective:: Mr. Gray is a 61-year-old male who presented to the emergency department with shortness of breath, productive cough, and fever for several days prior to admission. He was admitted for pneumonia, in addition to acute hypoxemic respiratory failure. At that time, his mental status was altered as well. He was treated with antibiotics as well as oxygen. Shortly into his hospitalization, he decompensated and required intubation. At that point, a pulmonary consultation was obtained to help with ventilator management. CT of the chest was done, to rule out PE. He received chest PT in the ICU. Furthermore, his antibiotic spectrum was broadened. Unfortunately he suffered a NSTEMI. He was started on a heparin drip. Cardiology was consulted. He was successfully extubated 2 days later. He underwent a nuclear stress test. It showed no definite ischemia but did show a depressed LVEF. He has a history of CAD and is status post stent, with possible prior myocardial infarction. Cardiology recommended optimizing his medications, including antiplatelet, statin, beta-leslie, and LIANE inhibitor if no contraindication. Echocardiogram demonstrated a LVEF of 36%. He was started on Entresto, but due to hypotension it was discontinued. He remains in hospital essentially because he is homeless. Reason For Visit: PNEUMONIA Physical Exam Vital Signs: Temp Pulse Resp BP Pulse Ox 97.9 F 101 H 20 88/64 L 92 02/14/17 16:23 02/14/17 16:23 02/14/17 16:23 02/14/17 16:23 02/14/17 16:23 Intake & Output 02/13/17 02/14/17 02/15/17 06:59 06:59 06:59 Intake Total 2405 1860 675 Output Total 850 200 225 Balance 1555 1660 450 Weight 80.1 kg 80 kg General appearance: PRESENT: no acute distress, well-developed, well-nourished Head exam: PRESENT: atraumatic, normocephalic Eye exam: PRESENT: conjunctiva pink, EOMI, PERRLA Respiratory exam: PRESENT: clear to auscultation vangie. ABSENT: rales, rhonchi, wheezes Cardiovascular exam: PRESENT: RRR. ABSENT: diastolic murmur, rubs, systolic murmur Extremities exam: PRESENT: +2 edema - bilateral calves Neurological exam: PRESENT: alert, awake, oriented to person, oriented to place , oriented to time, oriented to situation, CN II-XII grossly intact. ABSENT: motor sensory deficit Psychiatric exam: PRESENT: appropriate affect, normal mood. ABSENT: homicidal ideation, suicidal ideation Results Laboratory Results: 02/13/17 04:38 02/14/17 08:25 02/14/17 08:25 Sodium 131.4 L Potassium 3.9 Chloride 96 L Carbon Dioxide 29 Anion Gap 6 BUN 18 Creatinine 0.68 Est GFR ( Amer) > 60 Est GFR (Non-Af Amer) > 60 Glucose 162 H Calcium 8.3 L 02/02/17 02/03/17 02/04/17 21:45 03:50 01:42 Troponin I 0.030 0.066 0.043 02/04/17 02/04/17 02/04/17 04:47 12:32 19:25 Troponin I 0.447 1.640 1.740 02/05/17 02/06/17 01:21 03:55 Troponin I 1.360 0.574 Impressions: Chest/Abdomen CTA 02/04/17 00:00 IMPRESSION: 1. There is no evidence of pulmonary emboli. 2. Small a moderate bilateral pleural effusions. 3. Left lower lobe pneumonia versus atelectasis. Chest X-Ray 02/14/17 00:00 IMPRESSION: FAINT DENSITY IN THE LEFT LUNG BASE APPEARS UNCHANGED. THE SMALL PLEURAL EFFUSION HAS RESOLVED. Assessment & Plan - Diagnosis (1) Chronic systolic CHF (congestive heart failure), NYHA class 3 Is this a current diagnosis for this admission?: Yes Plan: Continue beta-leslie, and add low-dose LIANE inhibitor due to hypotension. Hold Entresto due to significant hypotension. (2) Acute hypoxemic respiratory failure Is this a current diagnosis for this admission?: Yes Plan: Resolved (3) Alcohol abuse Is this a current diagnosis for this admission?: Yes Plan: No signs or symptoms of withdrawal (4) Coronary artery disease Qualifiers: Coronary Disease-Associated Artery/Lesion type: [place] artery [place] vs. transplanted heart: [place] heart Associated angina: angina presence unspecified Qualified Code(s): I25.10 - Atherosclerotic heart disease of [place] coronary artery without angina pectoris Is this a current diagnosis for this admission?: Yes Plan: Stable. Continue aspirin and statin along with beta-leslie. 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 He shows no signs or symptoms of infection. (7) NSTEMI (non-ST elevated myocardial infarction) Is this a current diagnosis for this admission?: Yes Plan: Stable. Continue aspirin, statin, beta-leslie. (8) Pneumonia Qualifiers: Pneumonia type: due to unspecified organism Laterality: right Lung location: lower lobe of lung Qualified Code(s): J18.1 - Lobar pneumonia, unspecified organism Is this a current diagnosis for this admission?: Yes Plan: Treated. - Time Time Spent with patient: 25-34 minutes Medications reviewed and adjusted accordingly: Yes Anticipated discharge: Other - ? - Inpatient Certification Based on my medical assessment, after consideration of the patient's comorbidities, presenting symptoms, or acuity I expect that the services needed warrant INPATIENT care.: Yes I certify that my determination is in accordance with my understanding of Medicare's requirements for reasonable and necessary INPATIENT services [42 CFR 412.3e].: Yes Medical Necessity: Risk of Complication if Not Cared For in Hospital
[2017-02-14] MEDS: ATORVASTATIN CALCIUM 80 MG TABLET PO SCH (21:05)
[2017-02-14] MEDS: LACTULOSE SYRUP 20 GM/30 ML UDCUP PO SCH (21:05)
[2017-02-15] MEDS ORDERED: NORMAL SALINE 500 ML IV ONE (00:45)
[2017-02-15] MEDS: IPRATROPIUM/ALBUTEROL 0.5-2.5 MG/3 ML AMPUL NEB SCH ×4 (02:16→19:38)
[2017-02-15 05:02] LABS: HEMATOCRIT 38.7 % (37.9-51.0); HEMOGLOBIN 13.2 g/dL (13.5-17.0); MEAN CORPUSCULAR HEMOGLOBIN 32.7 pg (27.0-33.4); MEAN CORPUSCULAR VOLUME 96 fl (80-97); PLATELET COUNT 251 10^3/uL (150-450); RED BLOOD COUNT 4.03 10^6/uL (4.35-5.55); WHITE BLOOD COUNT 21.6 10^3/uL (4.0-10.5)
[2017-02-15] MEDS: LANSOPRAZOLE 15 MG TAB.RAP.DR PO SCH (05:28)
[2017-02-15] MEDS: GABAPENTIN 300 MG CAPSULE PO SCH ×3 (05:28→21:42)
[2017-02-15] MEDS: ACETYLCYSTEINE 20% SOLN 800 MG/4 ML VIAL.NEB NEB SCH ×2 (08:22→19:38)
--- NOTE | 2017-02-15 08:45 | PDOC PROGRESS REPORT ---
Subjective Progress Note for:: 02/14/17 Subjective:: Patient seems to be doing better with gradual improvement. Pt is denying any chest arm or neck discomfort. Patient denying any PND, orthopnea. Patient denied any sustained palpitations, dizziness, syncope, near syncope. Patient denying any fever chills. Patient denying any other significant discomfort. Patient is maintaining sinus rhythm. No sustained tachycardia or bradycardia arrhythmias noted. Review of systems: Rest review of systems negative. Medications: Medications have been reviewed. Reason For Visit: PNEUMONIA Physical Exam Vital Signs: Temp Pulse Resp BP Pulse Ox 97.9 F 96 16 88/64 L 100 02/14/17 16:23 02/14/17 20:15 02/14/17 20:15 02/14/17 16:23 02/14/17 20:15 Intake & Output 02/13/17 02/14/17 02/15/17 06:59 06:59 06:59 Intake Total 2405 1860 1505 Output Total 850 200 225 Balance 1555 1660 1280 Weight 80.1 kg 80 kg Exam: GENERAL: well-nourished and in no acute distress. Alert and oriented x3 HEAD: Atraumatic, normocephalic. EYES: Pupils equal round and reactive to light, extraocular movements intact, sclera anicteric, conjunctiva are normal. ENT: TMs normal, nares patent, oropharynx clear without exudates. Moist mucous membranes. No oral ulcerations or bleeding gums noted NECK: supple without lymphadenopathy. Trachea is central. No cervical or axillary lymphadenopathy noted. Carotids are 2+, JVD WNL LUNGS: Respiration seems nonlabored, no significant accessory muscle action noted. Breath sounds clear to auscultation bilaterally and equal noted. No wheezes rales or rhonchi noted. No significant dullness noted on percussion. CHEST: Palpation of the chest wall shows no significant chest wall tenderness. No other significant abnormalities noted. 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 ABDOMEN: Soft, no significant tenderness appreciated, normoactive bowel sounds. No guarding, no rebound. No rigidity noted . No masses appreciated. EXTREMITIES: Pedal pulses are 1-2+, no calf tenderness noted. No clubbing or cyanosis.1+ pedal edema noted NEUROLOGICAL: Focused neurological exam showed no significant neurologic deficit. Normal speech, no focal weakness appreciated. PSYCH: Normal mood, normal affect. Judgment and insight within normal limits. SKIN: No significant ecchymosis, rash, ulcerations or signs of pruritus noted. MUSCULOSKELETAL EXAM: No significant joint swelling noted. Results Laboratory Results: 02/13/17 04:38 02/14/17 08:25 02/14/17 08:25 Sodium 131.4 L Potassium 3.9 Chloride 96 L Carbon Dioxide 29 Anion Gap 6 BUN 18 Creatinine 0.68 Est GFR ( Amer) > 60 Est GFR (Non-Af Amer) > 60 Glucose 162 H Calcium 8.3 L 02/02/17 02/03/17 02/04/17 21:45 03:50 01:42 Troponin I 0.030 0.066 0.043 02/04/17 02/04/17 02/04/17 04:47 12:32 19:25 Troponin I 0.447 1.640 1.740 02/05/17 02/06/17 01:21 03:55 Troponin I 1.360 0.574 Impressions: Chest/Abdomen CTA 02/04/17 00:00 IMPRESSION: 1. There is no evidence of pulmonary emboli. 2. Small a moderate bilateral pleural effusions. 3. Left lower lobe pneumonia versus atelectasis. Chest X-Ray 02/14/17 00:00 IMPRESSION: FAINT DENSITY IN THE LEFT LUNG BASE APPEARS UNCHANGED. THE SMALL PLEURAL EFFUSION HAS RESOLVED. Assessment & Plan - Diagnosis (1) Coronary artery disease Qualifiers: Coronary Disease-Associated Artery/Lesion type: [place] artery [place] vs. transplanted heart: [place] heart Associated angina: angina presence unspecified Qualified Code(s): I25.10 - Atherosclerotic heart disease of [place] coronary artery without angina pectoris Is this a current diagnosis for this admission?: Yes (2) Elevated troponin Is this a current diagnosis for this admission?: Yes (3) NSTEMI (non-ST elevated myocardial infarction) Is this a current diagnosis for this admission?: Yes (4) Acute respiratory failure with hypoxia and hypercapnia Is this a current diagnosis for this admission?: Yes (5) Diabetes mellitus Qualifiers: Diabetes mellitus type: type 2 Diabetes mellitus complication status: with unspecified complications 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 Patient refused to wear a heart monitor and therefore this was subsequently discontinued. Patient has been noted to be doing his own and not following nurses instructions at this time. Currently he is stable. His respirations are stable. Oxygen saturations are well maintained. Diabetes seems reasonably well controlled. Nuclear stress test results were discussed. At this point, the best option is continuation of medical therapy and aggressive risk factor modification. Should patient have any recurrence of chest pain or CHF then heart catheterization may need to be considered. Patient's medical regimen reviewed. No medication changes performed today. Patient would benefit from improving compliance. Reviewed medications changes performed by the hospitalist. Patient previous echocardiogram reviewed. Patient felt to have cardiomyopathy. - Time Time with patient: 15-25 minutes - More than 50% of the time spent coordinating care, discussing management plans with involved caregivers. Management plans discussed with involved personnels. Medical decision making was of moderate to high complexity, patient's has multiple comorbidities. Medications reviewed and adjusted accordingly: Yes
[2017-02-15 09:03] LABS: ANION GAP 7 (5-19); BLOOD UREA NITROGEN 16 mg/dL (7-20); CALCIUM 8.7 mg/dL (8.4-10.2); CARBON DIOXIDE 27 mmol/L (22-30); CHLORIDE 99 mmol/L (98-107); GLUCOSE 112 mg/dL (75-110); POTASSIUM 4.5 mmol/L (3.6-5.0); SODIUM 133.4 mmol/L (137-145)
[2017-02-15] MEDS: LISINOPRIL 5 MG TABLET PO SCH (10:58)
[2017-02-15] MEDS: METOPROLOL SUCCINATE 25 MG TAB.SR.24H PO SCH (10:58)
[2017-02-15] MEDS: ASPIRIN 81 MG TABLET, ENT COATED PO SCH (10:59)
[2017-02-15] MEDS: LACTOBACILLUS ACIDOPHILUS 250 MG TAB PO SCH ×2 (10:59→18:17)
[2017-02-15] MEDS: GUAIFENESIN 600 MG TABLET.SA PO SCH ×2 (10:59→21:42)
[2017-02-15] MEDS: FOLIC ACID 1 MG TABLET NG SCH (10:59)
[2017-02-15] MEDS: FUROSEMIDE 20 MG TABLET PO SCH (10:59)
[2017-02-15] MEDS: THIAMINE HCL 100 MG TABLET NG SCH (10:59)
[2017-02-15] MEDS: TAMSULOSIN HCL 0.4 MG CAP.SR.24H PO SCH (10:59)
[2017-02-15] MEDS: POTASSIUM CHLORIDE 20 MEQ/15 ML UDCUP PO SCH (10:59)
[2017-02-15] MEDS: ENOXAPARIN SODIUM INJ 40 MG/0.4 ML DISP.SYRIN SUBCUT SCH (11:00)
[2017-02-15] MEDS: INSULIN GLARGINE,HUM.REC.ANLOG 300 UNIT/3 ML INSULN.PEN SUBCUT SCH (11:05)
--- NOTE | 2017-02-15 11:13 | PDOC PROGRESS REPORT ---
Subjective Progress Note for:: 02/15/17 Subjective:: Patient seems to be doing better with gradual improvement. Pt is denying any chest arm or neck discomfort. Patient denying any PND, orthopnea. Patient denied any sustained palpitations, dizziness, syncope, near syncope. Patient denying any fever chills. Patient denying any other significant discomfort. Patient is maintaining sinus rhythm. No sustained tachycardia or bradycardia arrhythmias noted. Patient was placed back on the monitor yesterday after in the nurse convinced him to stay on the heart monitor. Review of systems: Rest review of systems negative. Medications: Medications have been reviewed. Reason For Visit: PNEUMONIA Physical Exam Vital Signs: Temp Pulse Resp BP Pulse Ox 98.6 F 97 16 121/53 L 96 02/15/17 07:00 02/15/17 07:00 02/15/17 07:00 02/15/17 07:00 02/15/17 07:00 Intake & Output 02/14/17 02/15/17 02/16/17 06:59 06:59 06:59 Intake Total 1860 2599 Output Total 200 475 Balance 1660 2124 Weight 80 kg 80.8 kg Exam: GENERAL: well-nourished and in no acute distress. Alert and oriented x3 HEAD: Atraumatic, normocephalic. EYES: Pupils equal round and reactive to light, extraocular movements intact, sclera anicteric, conjunctiva are normal. ENT: TMs normal, nares patent, oropharynx clear without exudates. Moist mucous membranes. No oral ulcerations or bleeding gums noted NECK: supple without lymphadenopathy. Trachea is central. No cervical or axillary lymphadenopathy noted. Carotids are 2+, JVD WNL LUNGS: Respiration seems nonlabored, no significant accessory muscle action noted. Breath sounds clear to auscultation bilaterally and equal noted. No wheezes rales or rhonchi noted. No significant dullness noted on percussion. CHEST: Palpation of the chest wall shows no significant chest wall tenderness. No other significant abnormalities noted. 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 ABDOMEN: Soft, no significant tenderness appreciated, normoactive bowel sounds. No guarding, no rebound. No rigidity noted . No masses appreciated. EXTREMITIES: Pedal pulses are 1-2+, no calf tenderness noted. No clubbing or cyanosis.1+ pedal edema noted NEUROLOGICAL: Focused neurological exam showed no significant neurologic deficit. Normal speech, no focal weakness appreciated. PSYCH: Normal mood, normal affect. Judgment and insight within normal limits. SKIN: No significant ecchymosis, rash, ulcerations or signs of pruritus noted. MUSCULOSKELETAL EXAM: No significant joint swelling noted. Results Laboratory Results: 02/15/17 04:32 02/14/17 02/15/17 08:25 04:32 WBC 21.6 H RBC 4.03 L Hgb 13.2 L Hct 38.7 MCV 96 MCH 32.7 MCHC 34.0 RDW 15.0 H Plt Count 251 Sodium 131.4 L Potassium 3.9 Chloride 96 L Carbon Dioxide 29 Anion Gap 6 BUN 18 Creatinine 0.68 Est GFR ( Amer) > 60 Est GFR (Non-Af Amer) > 60 Glucose 162 H Calcium 8.3 L 02/02/17 02/03/17 02/04/17 21:45 03:50 01:42 Troponin I 0.030 0.066 0.043 02/04/17 02/04/17 02/04/17 04:47 12:32 19:25 Troponin I 0.447 1.640 1.740 02/05/17 02/06/17 01:21 03:55 Troponin I 1.360 0.574 EKG Comments: NSR Impressions: Chest/Abdomen CTA 02/04/17 00:00 IMPRESSION: 1. There is no evidence of pulmonary emboli. 2. Small a moderate bilateral pleural effusions. 3. Left lower lobe pneumonia versus atelectasis. Chest X-Ray 02/14/17 00:00 IMPRESSION: FAINT DENSITY IN THE LEFT LUNG BASE APPEARS UNCHANGED. THE SMALL PLEURAL EFFUSION HAS RESOLVED. Assessment & Plan - Diagnosis (1) Coronary artery disease Qualifiers: Coronary Disease-Associated Artery/Lesion type: [place] artery [place] vs. transplanted heart: [place] heart Associated angina: angina presence unspecified Qualified Code(s): I25.10 - Atherosclerotic heart disease of [place] coronary artery without angina pectoris Is this a current diagnosis for this admission?: Yes (2) Elevated troponin Is this a current diagnosis for this admission?: Yes (3) NSTEMI (non-ST elevated myocardial infarction) Is this a current diagnosis for this admission?: Yes (4) Acute respiratory failure with hypoxia and hypercapnia Is this a current diagnosis for this admission?: Yes (5) Diabetes mellitus Qualifiers: Diabetes mellitus type: type 2 Diabetes mellitus complication status: with unspecified complications 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 Medications reviewed. No medication changes performed today. Coronary artery disease: Patient has known history of CAD and is status post stent and also possible prior myocardial infarction. Patient medical therapy would need to be optimized. Recommend antiplatelet, statins, beta-leslie and LIANE inhibitors if there are no contraindication. Dose to be increased as tolerated. Elevated troponin I: Exact etiology not clear but could be related to metabolic reasons but could well be related to underlying CAD. Currently is stable without any chest pain. Non-STEMI: Possibly type II. Optimize medical therapy. Currently stable without any recurrent chest pain. Acute respiratory failure with hypoxemia and hypercapnia: This has improved. Diabetes: Recommend good control but avoid any hyper or hypoglycemia. Cardiomyopathy: This is based on echocardiogram review. Patient on a satisfactory regimen. I believe switch from entresto to enalapril was performed keeping in mind that patient may not be able to afford it as an outpatient. - Time Time with patient: 15-25 minutes Medications reviewed and adjusted accordingly: Yes
--- NOTE | 2017-02-15 12:27 | PDOC PROGRESS REPORT ---
Subjective Progress Note for:: 02/15/17 Subjective:: Currently without complaints awaiting lunch Reason For Visit: PNEUMONIA Physical Exam Vital Signs: Temp Pulse Resp BP Pulse Ox 98.6 F 105 H 14 121/53 L 98 02/15/17 07:00 02/15/17 08:22 02/15/17 08:22 02/15/17 07:00 02/15/17 08:22 Intake & Output 02/14/17 02/15/17 02/16/17 06:59 06:59 06:59 Intake Total 1860 2599 Output Total 200 475 Balance 1660 2124 Weight 80 kg 80.8 kg General appearance: PRESENT: no acute distress, cooperative, disheveled, well- developed. ABSENT: mild distress, morbidly obese, obese, severe distress, thin Head exam: PRESENT: atraumatic, normocephalic Eye exam: PRESENT: conjunctiva pale, EOMI. ABSENT: conjunctival injection, conjunctiva pink, nystagmus Mouth exam: PRESENT: moist, neck supple, tongue midline. ABSENT: dry mucosa, laceration Neck exam: ABSENT: carotid bruit, JVD, lymphadenopathy, thyromegaly, tracheal deviation, tracheostomy Respiratory exam: PRESENT: crackles, decreased breath sounds, prolonged expiratory phas, rhonchi, symmetrical, unlabored, wheezes. ABSENT: accessory muscle use, chest wall tenderness, clear to auscultation vangie, rales, stridor, tachypnea Cardiovascular exam: PRESENT: RRR, +S1, +S2 Pulses: PRESENT: normal radial pulses GI/Abdominal exam: PRESENT: normal bowel sounds, soft. ABSENT: distended, guarding, mass, organolmegaly, rebound, tenderness Extremities exam: ABSENT: clubbing, joint swelling Musculoskeletal exam: ABSENT: deformity, dislocation Neurological exam: PRESENT: awake Skin exam: PRESENT: dry, warm Results Laboratory Results: 02/15/17 04:32 02/15/17 08:20 02/15/17 02/15/17 04:32 08:20 WBC 21.6 H RBC 4.03 L Hgb 13.2 L Hct 38.7 MCV 96 MCH 32.7 MCHC 34.0 RDW 15.0 H Plt Count 251 Sodium 133.4 L Potassium 4.5 Chloride 99 Carbon Dioxide 27 Anion Gap 7 BUN 16 Creatinine 0.68 Est GFR ( Amer) > 60 Est GFR (Non-Af Amer) > 60 Glucose 112 H Calcium 8.7 02/02/17 02/03/17 02/04/17 21:45 03:50 01:42 Troponin I 0.030 0.066 0.043 02/04/17 02/04/17 02/04/17 04:47 12:32 19:25 Troponin I 0.447 1.640 1.740 02/05/17 02/06/17 01:21 03:55 Troponin I 1.360 0.574 Impressions: Chest/Abdomen CTA 02/04/17 00:00 IMPRESSION: 1. There is no evidence of pulmonary emboli. 2. Small a moderate bilateral pleural effusions. 3. Left lower lobe pneumonia versus atelectasis. Chest X-Ray 02/14/17 00:00 IMPRESSION: FAINT DENSITY IN THE LEFT LUNG BASE APPEARS UNCHANGED. THE SMALL PLEURAL EFFUSION HAS RESOLVED. Assessment & Plan - Diagnosis (1) Acute respiratory failure with hypoxia and hypercapnia Is this a current diagnosis for this admission?: Yes Plan: Will check current ABG (2) Pneumonia Qualifiers: Pneumonia type: due to unspecified organism Laterality: right Lung location: lower lobe of lung Qualified Code(s): J18.1 - Lobar pneumonia, unspecified organism Is this a current diagnosis for this admission?: Yes Plan: Enterococcus in urine otherwise no positive cultures significant for leukocytosis;Afebrile (3) Sepsis Qualifiers: Sepsis type: sepsis due to unspecified organism Qualified Code(s): A41.9 - Sepsis, unspecified organism Is this a current diagnosis for this admission?: No
--- NOTE | 2017-02-15 14:28 | PDOC PROGRESS REPORT ---
Subjective Progress Note for:: 02/15/17 Subjective:: Mr. Gray is a 61-year-old male who presented to the emergency department with shortness of breath, productive cough, and fever for several days prior to admission. He was admitted for pneumonia, in addition to acute hypoxemic respiratory failure. At that time, his mental status was altered as well. He was treated with antibiotics as well as oxygen. Shortly into his hospitalization, he decompensated and required intubation. At that point, a pulmonary consultation was obtained to help with ventilator management. CT of the chest was done, to rule out PE. He received chest PT in the ICU. Furthermore, his antibiotic spectrum was broadened. Unfortunately he suffered a NSTEMI. He was started on a heparin drip. Cardiology was consulted. He was successfully extubated 2 days later. He underwent a nuclear stress test. It showed no definite ischemia but did show a depressed LVEF. He has a history of CAD and is status post stent, with possible prior myocardial infarction. Cardiology recommended optimizing his medications, including antiplatelet, statin, beta-leslie, and LIANE inhibitor if no contraindication. Echocardiogram demonstrated a LVEF of 36%. He was started on Entresto, but due to hypotension it was discontinued. He remains in hospital essentially because he is homeless. 02/15/17 He reported scrotal/penile edema today. He said that he just noticed it today. Reason For Visit: PNEUMONIA Physical Exam Vital Signs: Temp Pulse Resp BP Pulse Ox 98.0 F 98 16 106/57 L 98 02/15/17 11:49 02/15/17 13:39 02/15/17 13:39 02/15/17 11:49 02/15/17 13:39 Intake & Output 02/14/17 02/15/17 02/16/17 06:59 06:59 06:59 Intake Total 1860 2599 400 Output Total 200 475 Balance 1660 2124 400 Weight 80 kg 80.8 kg General appearance: PRESENT: no acute distress, disheveled Head exam: PRESENT: atraumatic, normocephalic Eye exam: PRESENT: EOMI, PERRLA Neck exam: ABSENT: JVD Respiratory exam: PRESENT: clear to auscultation vangie. ABSENT: rales, rhonchi, wheezes Cardiovascular exam: PRESENT: RRR. ABSENT: diastolic murmur, rubs, systolic murmur GI/Abdominal exam: PRESENT: normal bowel sounds, soft. ABSENT: distended, guarding, mass, organolmegaly, rebound, tenderness Gentrourinary exam: PRESENT: scrotal swelling Extremities exam: PRESENT: +2 edema - BLE Neurological exam: PRESENT: alert, awake, oriented to person, oriented to place , oriented to time, oriented to situation, CN II-XII grossly intact. ABSENT: motor sensory deficit Psychiatric exam: PRESENT: appropriate affect, normal mood. ABSENT: homicidal ideation, suicidal ideation Results Laboratory Results: 02/15/17 04:32 02/15/17 08:20 02/15/17 02/15/17 04:32 08:20 WBC 21.6 H RBC 4.03 L Hgb 13.2 L Hct 38.7 MCV 96 MCH 32.7 MCHC 34.0 RDW 15.0 H Plt Count 251 Sodium 133.4 L Potassium 4.5 Chloride 99 Carbon Dioxide 27 Anion Gap 7 BUN 16 Creatinine 0.68 Est GFR ( Amer) > 60 Est GFR (Non-Af Amer) > 60 Glucose 112 H Calcium 8.7 02/02/17 02/03/17 02/04/17 21:45 03:50 01:42 Troponin I 0.030 0.066 0.043 02/04/17 02/04/17 02/04/17 04:47 12:32 19:25 Troponin I 0.447 1.640 1.740 02/05/17 02/06/17 01:21 03:55 Troponin I 1.360 0.574 Impressions: Chest/Abdomen CTA 02/04/17 00:00 IMPRESSION: 1. There is no evidence of pulmonary emboli. 2. Small a moderate bilateral pleural effusions. 3. Left lower lobe pneumonia versus atelectasis. Chest X-Ray 02/14/17 00:00 IMPRESSION: FAINT DENSITY IN THE LEFT LUNG BASE APPEARS UNCHANGED. THE SMALL PLEURAL EFFUSION HAS RESOLVED. Assessment & Plan - Diagnosis (1) Chronic systolic CHF (congestive heart failure), NYHA class 3 Is this a current diagnosis for this admission?: Yes Plan: Continue beta-leslie, and low-dose LIANE inhibitor. Hold Entresto due to significant hypotension. I will increase his furosemide due to excess edema. (2) Acute hypoxemic respiratory failure Is this a current diagnosis for this admission?: Yes Plan: Resolved (3) Alcohol abuse Is this a current diagnosis for this admission?: Yes Plan: No signs or symptoms of withdrawal (4) Coronary artery disease Qualifiers: Coronary Disease-Associated Artery/Lesion type: [place] artery [place] vs. transplanted heart: [place] heart Associated angina: angina presence unspecified Qualified Code(s): I25.10 - Atherosclerotic heart disease of [place] coronary artery without angina pectoris Is this a current diagnosis for this admission?: Yes Plan: Stable. Continue aspirin and statin along with beta-leslie. (5) Diabetes mellitus Qualifiers: Diabetes mellitus type: type 2 Diabetes mellitus complication status: with unspecified complications Diabetes mellitus hose maker insulin use: unspecified chcf insulin use status Qualified Code(s): E11.8 - Type 2 diabetes mellitus with unspecified complications Is this a current diagnosis for this admission?: Yes Plan: BG controlled. Continue Lantus 16 units daily. (6) Leucocytosis Qualifiers: Leukocytosis type: unspecified Qualified Code(s): D72.829 - Elevated white blood cell count, unspecified Is this a current diagnosis for this admission?: Yes Plan: Presumably due to steroids. He shows no signs or symptoms of infection. Recheck. (7) NSTEMI (non-ST elevated myocardial infarction) Is this a current diagnosis for this admission?: Yes Plan: Stable. Continue aspirin, statin, beta-leslie. (8) Pneumonia Qualifiers: Pneumonia type: due to unspecified organism Laterality: right Lung location: lower lobe of lung Qualified Code(s): J18.1 - Lobar pneumonia, unspecified organism Is this a current diagnosis for this admission?: Yes Plan: Treated. - Time Time Spent with patient: 15-24 minutes Medications reviewed and adjusted accordingly: Yes Anticipated discharge: Other - Inpatient Certification Based on my medical assessment, after consideration of the patient's comorbidities, presenting symptoms, or acuity I expect that the services needed warrant INPATIENT care.: Yes I certify that my determination is in accordance with my understanding of Medicare's requirements for reasonable and necessary INPATIENT services [42 CFR 412.3e].: Yes Medical Necessity: Need For Continuous Telemetry Monitoring, Risk of Complication if Not Cared For in Hospital
[2017-02-15] MEDS ORDERED: FUROSEMIDE INJ/PF 40 MG/4 ML SDV IV ONE (15:00)
[2017-02-15] MEDS ORDERED: DOBUTAMINE HCL/D5W 500 MG/250 ML RTUINJ IV PRN (16:42)
[2017-02-15 21:02] LABS: AMORPHOUS SEDIMENT,URINE TRACE /HPF; APPEARANCE,URINE SLIGHTLY-CLOUDY; BILIRUBIN,URINE NEGATIVE (NEGATIVE); COLOR,URINE STRAW; GLUCOSE, URINE NEGATIVE (NEGATIVE); KETONES,URINE NEGATIVE (NEGATIVE); LEUKOCYTE ESTERASE,URINE LARGE (NEGATIVE); NITRITE,URINE NEGATIVE (NEGATIVE); PROTEIN,URINE NEGATIVE (NEGATIVE); URINE SPECIFIC GRAVITY 1.006; UROBILINOGEN,URINE NEGATIVE mg/dL (<2.0)
[2017-02-15] MEDS: ATORVASTATIN CALCIUM 80 MG TABLET PO SCH (21:42)
[2017-02-15] MEDS: LACTULOSE SYRUP 20 GM/30 ML UDCUP PO SCH (21:42)
[2017-02-15] MEDS ORDERED: SPIRONOLACTONE 25 MG TABLET PO ONE (22:00)
[2017-02-15] MEDS ORDERED: FUROSEMIDE INJ/PF 40 MG/4 ML SDV IV SCH (22:00)
[2017-02-15] MEDS: NYSTATIN CREAM 15 GM TP SCH (22:09)
[2017-02-15] MEDS ORDERED: FLUCONAZOLE 400 MG/NS RTU 400 MG/200 ML RTUPB IV ONE (23:00)
[2017-02-15] MEDS: CEPHALEXIN 500 MG CAPSULE PO SCH (23:37)
[2017-02-16] MEDS: IPRATROPIUM/ALBUTEROL 0.5-2.5 MG/3 ML AMPUL NEB SCH ×4 (02:27→20:12)
[2017-02-16 05:07] LABS: HEMATOCRIT 34.8 % (37.9-51.0); HEMOGLOBIN 11.7 g/dL (13.5-17.0); MEAN CORPUSCULAR HEMOGLOBIN 32.8 pg (27.0-33.4); MEAN CORPUSCULAR HGB CONC 33.6 g/dL (32.0-36.0); MEAN CORPUSCULAR VOLUME 98 fl (80-97); PLATELET COUNT 225 10^3/uL (150-450); RED BLOOD COUNT 3.57 10^6/uL (4.35-5.55); RED CELL DISTRIBUTION WIDTH 15.3 % (11.5-14.0); WHITE BLOOD COUNT 16.8 10^3/uL (4.0-10.5)
[2017-02-16] MEDS: CEPHALEXIN 500 MG CAPSULE PO SCH ×4 (05:18→23:31)
[2017-02-16] MEDS: LANSOPRAZOLE 15 MG TAB.RAP.DR PO SCH (05:18)
[2017-02-16] MEDS: GABAPENTIN 300 MG CAPSULE PO SCH ×3 (05:18→21:33)
[2017-02-16 05:28] LABS: ANION GAP 7 (5-19); BLOOD UREA NITROGEN 21 mg/dL (7-20); CALCIUM 8.8 mg/dL (8.4-10.2); CARBON DIOXIDE 28 mmol/L (22-30); CHLORIDE 100 mmol/L (98-107); GLUCOSE 109 mg/dL (75-110); MAGNESIUM 1.7 mg/dL (1.6-2.3); POTASSIUM 4.4 mmol/L (3.6-5.0); SODIUM 134.6 mmol/L (137-145)
[2017-02-16] MEDS: ACETYLCYSTEINE 20% SOLN 800 MG/4 ML VIAL.NEB NEB SCH ×2 (08:05→20:12)
--- NOTE | 2017-02-16 09:09 | RADIOLOGY REPORT (SQ) ---
EXAM DESCRIPTION: CHEST PA/LAT COMPLETED DATE/TIME: 02/16/2017 8:59 am REASON FOR STUDY: hemoptysis COMPARISON: 02/14/2017 EXAM PARAMETERS: NUMBER OF VIEWS: two views TECHNIQUE: Digital Frontal and Lateral radiographic views of the chest acquired. RADIATION DOSE: NA LIMITATIONS: none FINDINGS: LUNGS AND PLEURA: No opacities, masses or pneumothorax. No pleural effusion. Prior change s resolved. MEDIASTINUM AND HILAR STRUCTURES: No masses or contour abnormalities. HEART AND VASCULAR STRUCTURES: Heart normal size. No evidence for failure. BONES: No acute findings. HARDWARE: None in the chest. OTHER: No other significant finding. IMPRESSION: NO SIGNIFICANT RADIOGRAPHIC FINDING IN THE CHEST. Prior changes resolved. TECHNICAL DOCUMENTATION: JOB ID: [id number] [employer]- All Rights Reserved
--- NOTE | 2017-02-16 09:53 | PDOC PROGRESS REPORT ---
Subjective Progress Note for:: 02/16/17 Subjective:: Mr. Gray is a 61-year-old male who presented to the emergency department with shortness of breath, productive cough, and fever for several days prior to admission. He was admitted for pneumonia, in addition to acute hypoxemic respiratory failure. At that time, his mental status was altered as well. He was treated with antibiotics as well as oxygen. Shortly into his hospitalization, he decompensated and required intubation. At that point, a pulmonary consultation was obtained to help with ventilator management. CT of the chest was done, to rule out PE. He received chest PT in the ICU. Furthermore, his antibiotic spectrum was broadened. Unfortunately he suffered a NSTEMI. He was started on a heparin drip. Cardiology was consulted. He was successfully extubated 2 days later. He underwent a nuclear stress test. It showed no definite ischemia but did show a depressed LVEF. He has a history of CAD and is status post stent, with possible prior myocardial infarction. Cardiology recommended optimizing his medications, including antiplatelet, statin, beta-leslie, and LIANE inhibitor if no contraindication. Echocardiogram demonstrated a LVEF of 36%. He was started on Entresto, but due to hypotension it was discontinued. He remains in hospital essentially because he is homeless. 02/15/17 He reported scrotal/penile edema today. He said that he just noticed it today. 02/16/17 yesterday, his blood pressure was significantly low, prohibiting the use of IV Lasix. Despite hypotension, he was relatively asymptomatic. He was started on dobutamine titration. Overnight he has had significant urine output. This morning, he reported mild hemoptysis. He is not short of breath. He did not report chest pain. He also stated, that the scrotal swelling and penile edema that he was experiencing resolved. Reason For Visit: PNEUMONIA Physical Exam Vital Signs: Temp Pulse Resp BP Pulse Ox 99.2 F 112 H 19 128/84 H 95 02/16/17 00:40 02/16/17 06:00 02/16/17 02:27 02/16/17 06:01 02/16/17 02:27 Intake & Output 02/15/17 02/16/17 02/17/17 06:59 06:59 06:59 Intake Total 7999 1968 Output Total 629 6901 Balance 2124 -407 Weight 80.8 kg 81.9 kg General appearance: PRESENT: no acute distress, thin Head exam: PRESENT: atraumatic, normocephalic Neck exam: PRESENT: full ROM. ABSENT: JVD Respiratory exam: PRESENT: clear to auscultation vangie. ABSENT: rales, rhonchi, wheezes Cardiovascular exam: PRESENT: RRR. ABSENT: diastolic murmur, rubs, systolic murmur GI/Abdominal exam: PRESENT: normal bowel sounds, soft. ABSENT: distended, guarding, mass, organolmegaly, rebound, tenderness Extremities exam: PRESENT: pedal edema - and lower calve Musculoskeletal exam: PRESENT: ambulatory Neurological exam: PRESENT: alert, awake, oriented to person, oriented to place , oriented to time, oriented to situation, CN II-XII grossly intact. ABSENT: motor sensory deficit Psychiatric exam: PRESENT: appropriate affect, normal mood. ABSENT: homicidal ideation, suicidal ideation Skin exam: PRESENT: dry, intact, warm. ABSENT: cyanosis, rash Results Laboratory Results: 02/16/17 04:30 02/16/17 04:30 02/15/17 02/15/17 02/16/17 20:35 23:15 04:30 WBC 16.8 H RBC 3.57 L Hgb 11.7 L Hct 34.8 L MCV 98 H MCH 32.8 MCHC 33.6 RDW 15.3 H Plt Count 225 Sodium Potassium Chloride Carbon Dioxide Anion Gap BUN Creatinine Est GFR ( Amer) Est GFR (Non-Af Amer) Glucose Calcium Magnesium Urine Color STRAW Urine Appearance SLIGHTLY-CLOUDY Urine pH 7.0 Ur Specific [place] 1.006 Urine Protein NEGATIVE Urine Glucose (UA) NEGATIVE Urine Ketones NEGATIVE Urine Blood MODERATE H Urine Nitrite NEGATIVE Ur Leukocyte Esterase LARGE H Urine WBC (Auto) 60 Urine RBC (Auto) 20 Stool Occult Blood NEGATIVE 02/16/17 04:30 WBC RBC Hgb Hct MCV MCH MCHC RDW Plt Count Sodium 134.6 L Potassium 4.4 Chloride 100 Carbon Dioxide 28 Anion Gap 7 BUN 21 H Creatinine 0.75 Est GFR ( Amer) > 60 Est GFR (Non-Af Amer) > 60 Glucose 109 Calcium 8.8 Magnesium 1.7 Urine Color Urine Appearance Urine pH Ur Specific [place] Urine Protein Urine Glucose (UA) Urine Ketones Urine Blood Urine Nitrite Ur Leukocyte Esterase Urine WBC (Auto) Urine RBC (Auto) Stool Occult Blood 12/02/03/17 02/04/17 21:45 03:50 01:42 Troponin I 0.030 0.066 0.043 02/04/17 02/04/17 02/04/17 04:47 12:32 19:25 Troponin I 0.447 1.640 1.740 02/05/17 02/06/17 01:21 03:55 Troponin I 1.360 0.574 Impressions: Chest/Abdomen CTA 02/04/17 00:00 IMPRESSION: 1. There is no evidence of pulmonary emboli. 2. Small a moderate bilateral pleural effusions. 3. Left lower lobe pneumonia versus atelectasis. Chest X-Ray 02/16/17 00:00 IMPRESSION: NO SIGNIFICANT RADIOGRAPHIC FINDING IN THE CHEST. Prior changes resolved. Assessment & Plan - Diagnosis (1) Chronic systolic CHF (congestive heart failure), NYHA class 3 Is this a current diagnosis for this admission?: Yes Plan: Continue beta-leslie, and low-dose LIANE inhibitor. Hold Entresto due to significant hypotension. I attempted to increase his furosemide yesterday, but never got a chance to do it because he was relatively hypotensive. Dobutamine IV was started. Since then, he has had strong urine output and as well as an increase in his blood pressure. I will continue the dobutamine for another day or 2, then start furosemide again. Monitor electrolytes. (2) Acute hypoxemic respiratory failure Is this a current diagnosis for this admission?: Yes Plan: Resolved (3) Alcohol abuse Is this a current diagnosis for this admission?: Yes Plan: No signs or symptoms of withdrawal (4) Coronary artery disease Qualifiers: Coronary Disease-Associated Artery/Lesion type: [place] artery [place] vs. transplanted heart: [place] heart Associated angina: angina presence unspecified Qualified Code(s): I25.10 - Atherosclerotic heart disease of [place] coronary artery without angina pectoris Is this a current diagnosis for this admission?: Yes Plan: Stable. Continue aspirin and statin along with beta-leslie. (5) Diabetes mellitus Qualifiers: Diabetes mellitus type: type 2 Diabetes mellitus complication status: with unspecified complications Diabetes mellitus roasterman insulin use: unspecified roasterman insulin use status Qualified Code(s): E11.8 - Type 2 diabetes mellitus with unspecified complications Is this a current diagnosis for this admission?: Yes Plan: BG controlled. Continue Lantus 16 units daily. (6) Leucocytosis Qualifiers: Leukocytosis type: unspecified Qualified Code(s): D72.829 - Elevated white blood cell count, unspecified Is this a current diagnosis for this admission?: Yes Plan: Improved. Presumably due to steroids. He shows no signs or symptoms of infection. (7) NSTEMI (non-ST elevated myocardial infarction) Is this a current diagnosis for this admission?: Yes Plan: Stable. Continue aspirin, statin, beta-leslie. (8) Pneumonia Qualifiers: Pneumonia type: due to unspecified organism Laterality: right Lung location: lower lobe of lung Qualified Code(s): J18.1 - Lobar pneumonia, unspecified organism Is this a current diagnosis for this admission?: Yes Plan: Treated. - Time Time Spent with patient: 15-24 minutes Medications reviewed and adjusted accordingly: Yes Anticipated discharge: Home - Inpatient Certification Medical Necessity: Need Close Monitoring Due to Risk of Patient Decompensation, Need For Continuous Telemetry Monitoring, Risk of Complication if Not Cared For in Hospital
[2017-02-16] MEDS: SPIRONOLACTONE 25 MG TABLET PO SCH (11:14)
[2017-02-16] MEDS: LACTOBACILLUS ACIDOPHILUS 250 MG TAB PO SCH ×2 (11:16→18:12)
[2017-02-16] MEDS: GUAIFENESIN 600 MG TABLET.SA PO SCH ×2 (11:16→21:33)
[2017-02-16] MEDS: THIAMINE HCL 100 MG TABLET NG SCH (11:17)
[2017-02-16] MEDS: LISINOPRIL 5 MG TABLET PO SCH (11:17)
[2017-02-16] MEDS: FOLIC ACID 1 MG TABLET NG SCH (11:17)
[2017-02-16] MEDS: INSULIN GLARGINE,HUM.REC.ANLOG 300 UNIT/3 ML INSULN.PEN SUBCUT SCH (11:18)
[2017-02-16] MEDS: ASPIRIN 81 MG TABLET, ENT COATED PO SCH (11:19)
[2017-02-16] MEDS: METOPROLOL SUCCINATE 25 MG TAB.SR.24H PO SCH (11:19)
[2017-02-16] MEDS: TAMSULOSIN HCL 0.4 MG CAP.SR.24H PO SCH (11:19)
[2017-02-16] MEDS: FLUCONAZOLE 200 MG/NS RTU 100 ML IV SCH (11:20)
[2017-02-16] MEDS: NYSTATIN CREAM 15 GM TP SCH ×2 (11:20→23:31)
[2017-02-16] MEDS: ENOXAPARIN SODIUM INJ 40 MG/0.4 ML DISP.SYRIN SUBCUT SCH (11:52)
[2017-02-16] MEDS: INSULIN LISPRO 100 UNIT/ML 3 ML VIAL SUBCUT PRN ×2 (13:05→21:33)
--- NOTE | 2017-02-16 13:25 | PDOC PROGRESS REPORT ---
Subjective Progress Note for:: 02/16/17 Subjective:: Patient's blood pressure was significantly low, prohibiting the use of IV Lasix. Despite hypotension, he was relatively asymptomatic. He was started on dobutamine titration by the hospitalist. Overnight he has had significant urine output. This morning, he reported mild hemoptysis. He is not short of breath. He did not report chest pain. He also stated, that the scrotal swelling and penile edema that he was experiencing resolved. Pt is denying any chest arm or neck discomfort. Patient denying any PND, orthopnea. Patient denied any sustained palpitations, dizziness, syncope, near syncope. Patient denying any fever chills. Patient denying any other significant discomfort. Patient is maintaining sinus rhythm. No sustained tachycardia or bradycardia arrhythmias noted. Review of systems: Rest review of systems negative. Medications: Medications have been reviewed. Reason For Visit: PNEUMONIA Physical Exam Vital Signs: Temp Pulse Resp BP Pulse Ox 99.2 F 115 H 20 128/84 H 96 02/16/17 00:40 02/16/17 08:05 02/16/17 08:05 02/16/17 06:01 02/16/17 08:05 Intake & Output 02/15/17 02/16/17 02/17/17 06:59 06:59 06:59 Intake Total 2599 1968 Output Total 475 2375 Balance 2124 -407 Weight 80.8 kg 81.9 kg Exam: GENERAL: well-nourished and in no acute distress. Alert and oriented x3 HEAD: Atraumatic, normocephalic. EYES: Pupils equal round and reactive to light, extraocular movements intact, sclera anicteric, conjunctiva are normal. ENT: TMs normal, nares patent, oropharynx clear without exudates. Moist mucous membranes. No oral ulcerations or bleeding gums noted NECK: supple without lymphadenopathy. Trachea is central. No cervical or axillary lymphadenopathy noted. Carotids are 2+, JVD WNL LUNGS: Respiration seems nonlabored, no significant accessory muscle action noted. Breath sounds clear to auscultation bilaterally and equal noted. No wheezes rales or rhonchi noted. No significant dullness noted on percussion. CHEST: Palpation of the chest wall shows no significant chest wall tenderness. No other significant abnormalities noted. HEART: Emmet WOOLEN TESTER, No PSH, 1/6 MALIK aortic area, 1/6 mayer systolic murmur mitral area, no rubs, no gallops. ABDOMEN: Soft, no significant tenderness appreciated, normoactive bowel sounds. No guarding, no rebound. No rigidity noted . No masses appreciated. EXTREMITIES: Pedal pulses are 1-2+, no calf tenderness noted. No clubbing or cyanosis.trace to 1+ pedal edema noted NEUROLOGICAL: Focused neurological exam showed no significant neurologic deficit. Normal speech, no focal weakness appreciated. PSYCH: Normal mood, normal affect. Judgment and insight within normal limits. SKIN: No significant ecchymosis, rash, ulcerations or signs of pruritus noted. MUSCULOSKELETAL EXAM: No significant joint swelling noted. Results Laboratory Results: 02/16/17 04:30 02/16/17 04:30 02/15/17 02/15/17 02/16/17 20:35 23:15 04:30 WBC 16.8 H RBC 3.57 L Hgb 11.7 L Hct 34.8 L MCV 98 H MCH 32.8 MCHC 33.6 RDW 15.3 H Plt Count 225 Sodium Potassium Chloride Carbon Dioxide Anion Gap BUN Creatinine Est GFR ( Amer) Est GFR (Non-Af Amer) Glucose Calcium Magnesium Urine Color STRAW Urine Appearance SLIGHTLY-CLOUDY Urine pH 7.0 Ur Specific [place] 1.006 Urine Protein NEGATIVE Urine Glucose (UA) NEGATIVE Urine Ketones NEGATIVE Urine Blood MODERATE H Urine Nitrite NEGATIVE Ur Leukocyte Esterase LARGE H Urine WBC (Auto) 60 Urine RBC (Auto) 20 Stool Occult Blood NEGATIVE 02/16/17 04:30 WBC RBC Hgb Hct MCV MCH MCHC RDW Plt Count Sodium 134.6 L Potassium 4.4 Chloride 100 Carbon Dioxide 28 Anion Gap 7 BUN 21 H Creatinine 0.75 Est GFR ( Amer) > 60 Est GFR (Non-Af Amer) > 60 Glucose 109 Calcium 8.8 Magnesium 1.7 Urine Color Urine Appearance Urine pH Ur Specific [place] Urine Protein Urine Glucose (UA) Urine Ketones Urine Blood Urine Nitrite Ur Leukocyte Esterase Urine WBC (Auto) Urine RBC (Auto) Stool Occult Blood 02/02/17 02/03/17 02/04/17 21:45 03:50 01:42 Troponin I 0.030 0.066 0.043 02/04/17 02/04/17 02/04/17 04:47 12:32 19:25 Troponin I 0.447 1.640 1.740 02/05/17 02/06/17 01:21 03:55 Troponin I 1.360 0.574 EKG Comments: Shows sinus rhythm with intermittent sinus tachycardia Impressions: Chest/Abdomen CTA 02/04/17 00:00 IMPRESSION: 1. There is no evidence of pulmonary emboli. 2. Small a moderate bilateral pleural effusions. 3. Left lower lobe pneumonia versus atelectasis. Chest X-Ray 02/16/17 00:00 IMPRESSION: NO SIGNIFICANT RADIOGRAPHIC FINDING IN THE CHEST. Prior changes resolved. Assessment & Plan - Diagnosis (1) Coronary artery disease Qualifiers: Coronary Disease-Associated Artery/Lesion type: [place] artery [place] vs. transplanted heart: [place] heart Associated angina: angina presence unspecified Qualified Code(s): I25.10 - Atherosclerotic heart disease of [place] coronary artery without angina pectoris Is this a current diagnosis for this admission?: Yes (2) Elevated troponin Is this a current diagnosis for this admission?: Yes (3) NSTEMI (non-ST elevated myocardial infarction) Is this a current diagnosis for this admission?: Yes (4) Acute respiratory failure with hypoxia and hypercapnia Is this a current diagnosis for this admission?: Yes (5) Diabetes mellitus Qualifiers: Diabetes mellitus type: type 2 Diabetes mellitus complication status: with unspecified complications Diabetes mellitus senior living insulin use: unspecified truck terminal 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 Monitor closely. May consider Midodrin if it is persistent. Agree with stopping Lasix. - Notes Notes: Patient started on dobutamine infusion but blood pressure now stable. Agree with holding Lasix. Recommend stopping dobutamine. If pressure support is needed, better option would be to start patient on Midodrin. Of note patient was noted to be relatively asymptomatic when his blood pressure was low therefore could have been false reading. Manual blood pressure would need to be checked. Patient's medical regimen reviewed. Currently satisfactory. Agree with continuing with beta-blockers, lisinopril, spironolactone and holding off Lasix at this time. Will continue to follow patient. Will recommend adding digoxin to the regimen. - Time Time with patient: Greater than 35 minutes - Patient remains significantly ill. Will continue to follow patient. CODE STATUS was discussed, patient remains full code. Surrogate decision-maker unchanged. Multiple medical problems were addressed. More than 50% of the time spent coordinating care, discussing management plans with involved caregivers. Management plans discussed with involved personnels. Medical decision making was of moderate to high complexity , patient's has multiple comorbidities. Medications reviewed and adjusted accordingly: Yes
[2017-02-16] MEDS: DIGOXIN 0.125 MG TABLET PO SCH (16:26)
[2017-02-16] MEDS ORDERED: DIGOXIN 0.125 MG TABLET PO ONE (16:30)
[2017-02-16] MEDS: LACTULOSE SYRUP 20 GM/30 ML UDCUP PO SCH (21:33)
[2017-02-16] MEDS: ATORVASTATIN CALCIUM 80 MG TABLET PO SCH (21:33)
[2017-02-17] MEDS: IPRATROPIUM/ALBUTEROL 0.5-2.5 MG/3 ML AMPUL NEB SCH ×4 (01:38→19:54)
[2017-02-17] MEDS: LANSOPRAZOLE 15 MG TAB.RAP.DR PO SCH (05:43)
[2017-02-17] MEDS: GABAPENTIN 300 MG CAPSULE PO SCH ×3 (05:43→22:16)
[2017-02-17] MEDS: CEPHALEXIN 500 MG CAPSULE PO SCH ×3 (05:43→17:25)
[2017-02-17] MEDS: ACETYLCYSTEINE 20% SOLN 800 MG/4 ML VIAL.NEB NEB SCH ×2 (08:22→19:55)
[2017-02-17] MEDS: THIAMINE HCL 100 MG TABLET NG SCH (10:00)
[2017-02-17] MEDS: LACTOBACILLUS ACIDOPHILUS 250 MG TAB PO SCH ×2 (10:00→17:25)
[2017-02-17] MEDS: ASPIRIN 81 MG TABLET, ENT COATED PO SCH (10:01)
[2017-02-17] MEDS: METOPROLOL SUCCINATE 25 MG TAB.SR.24H PO SCH (10:01)
[2017-02-17] MEDS: TAMSULOSIN HCL 0.4 MG CAP.SR.24H PO SCH (10:01)
[2017-02-17] MEDS: GUAIFENESIN 600 MG TABLET.SA PO SCH ×2 (10:02→22:16)
[2017-02-17] MEDS: FUROSEMIDE 40 MG TABLET PO SCH (10:02)
[2017-02-17] MEDS: LISINOPRIL 5 MG TABLET PO SCH (10:02)
[2017-02-17] MEDS: SPIRONOLACTONE 25 MG TABLET PO SCH (10:03)
[2017-02-17] MEDS: FOLIC ACID 1 MG TABLET NG SCH (10:03)
[2017-02-17] MEDS: ENOXAPARIN SODIUM INJ 40 MG/0.4 ML DISP.SYRIN SUBCUT SCH (10:04)
[2017-02-17] MEDS: FLUCONAZOLE 200 MG/NS RTU 100 ML IV SCH (10:09)
[2017-02-17] MEDS: NYSTATIN CREAM 15 GM TP SCH ×2 (10:10→22:19)
--- NOTE | 2017-02-17 11:05 | PDOC PROGRESS REPORT ---
Subjective Progress Note for:: 02/17/17 Subjective:: Patient claims to be doing better. On talking to the nurses, there has been no further issues with blood pressure being low. He is not short of breath. He did not report chest pain. He also stated, that the scrotal swelling and penile edema that he was experiencing resolved. Pt is denying any chest arm or neck discomfort. Patient denying any PND, orthopnea. Patient denied any sustained palpitations, dizziness, syncope, near syncope. Patient denying any fever chills. Patient denying any other significant discomfort. Patient is maintaining sinus rhythm. No sustained tachycardia or bradycardia arrhythmias noted. Review of systems: Rest review of systems negative. Medications: Medications have been reviewed. Reason For Visit: PNEUMONIA Physical Exam Vital Signs: Temp Pulse Resp BP Pulse Ox 98.7 F 106 H 16 120/61 96 02/17/17 08:16 02/17/17 08:22 02/17/17 08:22 02/17/17 08:16 02/17/17 08:22 Intake & Output 02/16/17 02/17/17 02/18/17 06:59 06:59 06:59 Intake Total 1967 1855 Output Total 2375 1925 Balance -407 -70 Weight 81.9 kg 76.7 kg Exam: GENERAL: well-nourished and in no acute distress. Alert and oriented x3 HEAD: Atraumatic, normocephalic. EYES: Pupils equal round and reactive to light, extraocular movements intact, sclera anicteric, conjunctiva are normal. ENT: TMs normal, nares patent, oropharynx clear without exudates. Moist mucous membranes. No oral ulcerations or bleeding gums noted NECK: supple without lymphadenopathy. Trachea is central. No cervical or axillary lymphadenopathy noted. Carotids are 2+, JVD WNL LUNGS: Respiration seems nonlabored, no significant accessory muscle action noted. Breath sounds clear to auscultation bilaterally and equal noted. No wheezes rales or rhonchi noted. No significant dullness noted on percussion. CHEST: Palpation of the chest wall shows no significant chest wall tenderness. No other significant abnormalities noted. 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 ABDOMEN: Soft, no significant tenderness appreciated, normoactive bowel sounds. No guarding, no rebound. No rigidity noted . No masses appreciated. EXTREMITIES: Pedal pulses are 1-2+, no calf tenderness noted. No clubbing or cyanosis.trace to 1+ pedal edema noted NEUROLOGICAL: Focused neurological exam showed no significant neurologic deficit. Normal speech, no focal weakness appreciated. PSYCH: Normal mood, normal affect. Judgment and insight within normal limits. SKIN: No significant ecchymosis, rash, ulcerations or signs of pruritus noted. MUSCULOSKELETAL EXAM: No significant joint swelling noted. Results Laboratory Results: 02/16/17 04:30 02/16/17 04:30 02/02/17 02/03/17 02/04/17 21:45 03:50 01:42 Troponin I 0.030 0.066 0.043 02/04/17 02/04/17 02/04/17 04:47 12:32 19:25 Troponin I 0.447 1.640 1.740 02/05/17 02/06/17 01:21 03:55 Troponin I 1.360 0.574 EKG Comments: Telemetry strips shows sinus rhythm without any sustained tacky or bradycardia arrhythmias. Impressions: Chest/Abdomen CTA 02/04/17 00:00 IMPRESSION: 1. There is no evidence of pulmonary emboli. 2. Small a moderate bilateral pleural effusions. 3. Left lower lobe pneumonia versus atelectasis. Chest X-Ray 02/16/17 00:00 IMPRESSION: NO SIGNIFICANT RADIOGRAPHIC FINDING IN THE CHEST. Prior changes resolved. Assessment & Plan - Diagnosis (1) Coronary artery disease Qualifiers: Coronary Disease-Associated Artery/Lesion type: [place] artery [place] vs. transplanted heart: [place] heart Associated angina: angina presence unspecified Qualified Code(s): I25.10 - Atherosclerotic heart disease of [place] coronary artery without angina pectoris Is this a current diagnosis for this admission?: Yes (2) Elevated troponin Is this a current diagnosis for this admission?: Yes (3) NSTEMI (non-ST elevated myocardial infarction) Is this a current diagnosis for this admission?: Yes (4) Acute respiratory failure with hypoxia and hypercapnia Is this a current diagnosis for this admission?: Yes (5) Diabetes mellitus Qualifiers: Diabetes mellitus type: type 2 Diabetes mellitus complication status: with unspecified complications 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 insulin 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: unspecified half-way insulin use status Qualified Code(s): E11.8 - Type 2 diabetes mellitus with unspecified complications Is this a current diagnosis for this admission?: Yes (7) Cardiomyopathy Qualifiers: Cardiomyopathy type: unspecified Qualified Code(s): I42.9 - Cardiomyopathy , unspecified Is this a current diagnosis for this admission?: Yes (8) Hypotension (arterial) Qualifiers: Hypotension type: unspecified hypotension type Qualified Code(s): I95.9 - Hypotension, unspecified Is this a current diagnosis for this admission?: Yes - Notes Notes: Coronary artery disease: Symptomatically stable on current regimen. Continue with this. Elevated troponin I: This was evaluated with a nuclear stress test. Based on nuclear stress test results, medical management for CAD is being suggested. Non-STEMI: Currently stable. Acute respiratory failure: Improved. Diabetes: Stable Cardiomyopathy: Currently on satisfactory regimen. Optimization is somewhat limited because of hypotension. Digoxin was added yesterday. Arterial hypertension: Resolved. Most likely related to overdiuresis on acute basis. Lasix on hold. - Time Time with patient: 15-25 minutes - CODE STATUS was discussed, patient remains full code. Surrogate decision-maker unchanged. Multiple medical problems were addressed. More than 50% of the time spent coordinating care, discussing management plans with involved caregivers. Management plans discussed with involved personnels. Medical decision making was of moderate to high complexity , patient's has multiple comorbidities. Medications reviewed and adjusted accordingly: Yes
[2017-02-17] MEDS: INSULIN GLARGINE,HUM.REC.ANLOG 300 UNIT/3 ML INSULN.PEN SUBCUT SCH (11:32)
--- NOTE | 2017-02-17 11:47 | Progress Note ---
Provider Note Provider Note: Update to previous note. Patient is on Keflex for enterococcus UTI. He also appears to have moderate protein calorie malnutrition.
[2017-02-17] MEDS ORDERED: MAGNESIUM OXIDE 400 MG TABLET PO ONE (12:30)
[2017-02-17] MEDS: INSULIN LISPRO 100 UNIT/ML 3 ML VIAL SUBCUT PRN ×2 (12:51→17:29)
[2017-02-17] MEDS: DIGOXIN 0.125 MG TABLET PO SCH (13:44)
[2017-02-17] MEDS: PHENAZOPYRIDINE HCL 100 MG TABLET PO SCH ×2 (13:44→22:16)
[2017-02-17] MEDS: LACTULOSE SYRUP 20 GM/30 ML UDCUP PO SCH (22:15)
[2017-02-17] MEDS: ATORVASTATIN CALCIUM 80 MG TABLET PO SCH (22:16)
[2017-02-18] MEDS ORDERED: LIDOCAINE 2% URO-JET 5 ML KIT MM ONE (00:45)
[2017-02-18] MEDS: CEPHALEXIN 500 MG CAPSULE PO SCH ×4 (01:14→17:29)
[2017-02-18] MEDS: IPRATROPIUM/ALBUTEROL 0.5-2.5 MG/3 ML AMPUL NEB SCH ×4 (01:21→20:18)
[2017-02-18] MEDS ORDERED: LIDOCAINE 2% JELLY 5 ML TUBE ONE (01:51)
[2017-02-18 03:14] LABS: AMORPHOUS SEDIMENT,URINE TRACE /HPF; APPEARANCE,URINE CLEAR; BILIRUBIN,URINE NEGATIVE (NEGATIVE); GLUCOSE, URINE NEGATIVE (NEGATIVE); KETONES,URINE NEGATIVE (NEGATIVE); LEUKOCYTE ESTERASE,URINE MODERATE (NEGATIVE); NITRITE,URINE POSITIVE (NEGATIVE); PROTEIN,URINE NEGATIVE (NEGATIVE); URINE SPECIFIC GRAVITY 1.008
[2017-02-18 03:15] LABS: COLOR,URINE YELLOW
[2017-02-18 04:36] LABS: CHLAM PCR NOT DETECTED (NOT DETECT); GON PCR NOT DETECTED (NOT DETECT)
[2017-02-18 05:12] LABS: HEMATOCRIT 33.2 % (37.9-51.0); HEMOGLOBIN 11.4 g/dL (13.5-17.0); MEAN CORPUSCULAR HEMOGLOBIN 33.3 pg (27.0-33.4); MEAN CORPUSCULAR HGB CONC 34.4 g/dL (32.0-36.0); MEAN CORPUSCULAR VOLUME 97 fl (80-97); PLATELET COUNT 186 10^3/uL (150-450); RED BLOOD COUNT 3.43 10^6/uL (4.35-5.55); RED CELL DISTRIBUTION WIDTH 14.9 % (11.5-14.0); WHITE BLOOD COUNT 11.1 10^3/uL (4.0-10.5)
[2017-02-18] MEDS: PHENAZOPYRIDINE HCL 100 MG TABLET PO SCH ×3 (05:48→21:20)
[2017-02-18] MEDS: GABAPENTIN 300 MG CAPSULE PO SCH ×3 (05:48→21:20)
[2017-02-18] MEDS: LANSOPRAZOLE 15 MG TAB.RAP.DR PO SCH (05:48)
[2017-02-18 07:21] LABS: ANION GAP 12 (5-19); CALCIUM 8.9 mg/dL (8.4-10.2); CARBON DIOXIDE 23 mmol/L (22-30); CHLORIDE 97 mmol/L (98-107); GLUCOSE 110 mg/dL (75-110); SODIUM 131.5 mmol/L (137-145)
[2017-02-18 07:33] LABS: BLOOD UREA NITROGEN 26 mg/dL (7-20); MAGNESIUM 1.8 mg/dL (1.6-2.3); PHOSPHORUS 4.6 mg/dL (2.5-4.5)
[2017-02-18] MEDS: ACETYLCYSTEINE 20% SOLN 800 MG/4 ML VIAL.NEB NEB SCH ×2 (07:45→20:18)
[2017-02-18] MEDS: LEVALBUTEROL HCL NEB 1.25 MG/3 ML AMPUL NEB PRN (07:45)
[2017-02-18] MEDS: FOLIC ACID 1 MG TABLET NG SCH (10:10)
[2017-02-18] MEDS: TAMSULOSIN HCL 0.4 MG CAP.SR.24H PO SCH (10:11)
[2017-02-18] MEDS: ASPIRIN 81 MG TABLET, ENT COATED PO SCH (10:11)
[2017-02-18] MEDS: GUAIFENESIN 600 MG TABLET.SA PO SCH ×2 (10:11→21:20)
[2017-02-18] MEDS: LISINOPRIL 5 MG TABLET PO SCH (10:11)
[2017-02-18] MEDS: ENOXAPARIN SODIUM INJ 40 MG/0.4 ML DISP.SYRIN SUBCUT SCH (10:12)
[2017-02-18] MEDS: THIAMINE HCL 100 MG TABLET NG SCH (10:14)
[2017-02-18] MEDS: SPIRONOLACTONE 25 MG TABLET PO SCH (10:14)
[2017-02-18] MEDS: METOPROLOL SUCCINATE 25 MG TAB.SR.24H PO SCH (10:15)
[2017-02-18] MEDS: MAGNESIUM OXIDE 400 MG TABLET PO SCH (10:15)
[2017-02-18] MEDS: FUROSEMIDE 40 MG TABLET PO SCH (10:15)
[2017-02-18] MEDS: LACTOBACILLUS ACIDOPHILUS 250 MG TAB PO SCH ×2 (10:18→17:29)
[2017-02-18] MEDS: NYSTATIN CREAM 15 GM TP SCH ×2 (10:19→22:07)
[2017-02-18] MEDS: FLUCONAZOLE 200 MG/NS RTU 100 ML IV SCH (10:24)
--- NOTE | 2017-02-18 11:50 | PDOC PROGRESS REPORT ---
Subjective Progress Note for:: 02/18/17 Subjective:: Patient claims to be doing fine. Pt is denying any chest arm or neck discomfort. Patient denying any PND, orthopnea. Patient denied any sustained palpitations, dizziness, syncope, near syncope. Patient denying any fever chills. Patient denying any other significant discomfort. Patient is maintaining sinus rhythm. No sustained tachycardia or bradycardia arrhythmias noted. Review of systems: Rest review of systems negative. Medications: Medications have been reviewed. Reason For Visit: PNEUMONIA Physical Exam Vital Signs: Temp Pulse Resp BP Pulse Ox 98.0 F 109 H 16 105/61 98 02/18/17 03:32 02/18/17 07:49 02/18/17 07:49 02/18/17 03:32 02/18/17 07:49 Intake & Output 02/17/17 02/18/17 02/19/17 06:59 06:59 06:59 Intake Total 1855 2682 Output Total 1925 3395 Balance -70 -713 Weight 76.7 kg 73.5 kg Exam: GENERAL: well-nourished and in no acute distress. Alert and oriented x3 HEAD: Atraumatic, normocephalic. EYES: Pupils equal round and reactive to light, extraocular movements intact, sclera anicteric, conjunctiva are normal. ENT: TMs normal, nares patent, oropharynx clear without exudates. Moist mucous membranes. No oral ulcerations or bleeding gums noted NECK: supple without lymphadenopathy. Trachea is central. No cervical or axillary lymphadenopathy noted. Carotids are 2+, JVD WNL LUNGS: Respiration seems nonlabored, no significant accessory muscle action noted. Breath sounds clear to auscultation bilaterally and equal noted. No wheezes rales or rhonchi noted. No significant dullness noted on percussion. CHEST: Palpation of the chest wall shows no significant chest wall tenderness. No other significant abnormalities noted. 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 ABDOMEN: Soft, no significant tenderness appreciated, normoactive bowel sounds. No guarding, no rebound. No rigidity noted . No masses appreciated. EXTREMITIES: Pedal pulses are 1-2+, no calf tenderness noted. No clubbing or cyanosis. 1+ pedal edema noted NEUROLOGICAL: Focused neurological exam showed no significant neurologic deficit. Normal speech, no focal weakness appreciated. PSYCH: Normal mood, normal affect. Judgment and insight within normal limits. SKIN: No significant ecchymosis, rash, ulcerations or signs of pruritus noted. MUSCULOSKELETAL EXAM: No significant joint swelling noted. Results Laboratory Results: 02/18/17 04:21 02/18/17 06:25 02/18/17 02/18/17 02/18/17 02:52 04:21 04:21 WBC 11.1 H RBC 3.43 L Hgb 11.4 L Hct 33.2 L MCV 97 MCH 33.3 MCHC 34.4 RDW 14.9 H Plt Count 186 Sodium Cancelled Potassium Cancelled Chloride Cancelled Carbon Dioxide Cancelled Anion Gap Cancelled BUN Cancelled Creatinine Cancelled Est GFR ( Amer) Cancelled Est GFR (Non-Af Amer) Cancelled Glucose Cancelled Calcium Cancelled Phosphorus Cancelled Magnesium Cancelled Urine Color YELLOW Urine Appearance CLEAR Urine pH 7.0 Ur Specific [place] 1.008 Urine Protein NEGATIVE Urine Glucose (UA) NEGATIVE Urine Ketones NEGATIVE Urine Blood MODERATE H Urine Nitrite POSITIVE H Ur Leukocyte Esterase MODERATE H Urine WBC (Auto) 30 Urine RBC (Auto) 5 02/18/17 06:25 WBC RBC Hgb Hct MCV MCH MCHC RDW Plt Count Sodium 131.5 L Potassium 5.0 Chloride 97 L Carbon Dioxide 23 Anion Gap 12 BUN 26 H Creatinine 0.77 Est GFR ( Amer) > 60 Est GFR (Non-Af Amer) > 60 Glucose 110 Calcium 8.9 Phosphorus 4.6 H Magnesium 1.8 Urine Color Urine Appearance Urine pH Ur Specific [place] Urine Protein Urine Glucose (UA) Urine Ketones Urine Blood Urine Nitrite Ur Leukocyte Esterase Urine WBC (Auto) Urine RBC (Auto) 02/02/17 02/03/17 02/04/17 21:45 03:50 01:42 Troponin I 0.030 0.066 0.043 02/04/17 02/04/17 02/04/17 04:47 12:32 19:25 Troponin I 0.447 1.640 1.740 02/05/17 02/06/17 01:21 03:55 Troponin I 1.360 0.574 EKG Comments: Telemetry shows sinus rhythm without any sustained tachycardia or bradycardia arrhythmia. Intermittent mild sinus tachycardia noted. Impressions: Chest/Abdomen CTA 02/04/17 00:00 IMPRESSION: 1. There is no evidence of pulmonary emboli. 2. Small a moderate bilateral pleural effusions. 3. Left lower lobe pneumonia versus atelectasis. Chest X-Ray 02/16/17 00:00 IMPRESSION: NO SIGNIFICANT RADIOGRAPHIC FINDING IN THE CHEST. Prior changes resolved. Assessment & Plan - Diagnosis (1) Coronary artery disease Qualifiers: Coronary Disease-Associated Artery/Lesion type: [place] artery [place] vs. transplanted heart: [place] heart Associated angina: angina presence unspecified Qualified Code(s): I25.10 - Atherosclerotic heart disease of [place] coronary artery without angina pectoris Is this a current diagnosis for this admission?: Yes (2) Elevated troponin Is this a current diagnosis for this admission?: Yes (3) NSTEMI (non-ST elevated myocardial infarction) Is this a current diagnosis for this admission?: Yes (4) Acute respiratory failure with hypoxia and hypercapnia Is this a current diagnosis for this admission?: Yes (5) Diabetes mellitus Qualifiers: Diabetes mellitus type: type 2 Diabetes mellitus complication status: with unspecified complications Diabetes mellitus [facility] insulin use: unspecified [facility] insulin use status Qualified Code(s): E11.8 - Type 2 diabetes mellitus with unspecified complications Is this a current diagnosis for this admission?: Yes (7) Hypotension (arterial) Qualifiers: Hypotension type: unspecified hypotension type Qualified Code(s): I95.9 - Hypotension, unspecified Is this a current diagnosis for this admission?: Yes - Notes Notes: Coronary artery disease: Patient has known history of CAD and is status post stent and also possible prior myocardial infarction. Patient medical therapy would need to be optimized. Recommend antiplatelet, statins, beta-leslie and LIANE inhibitors if there are no contraindication. Dose to be increased as tolerated. Elevated troponin I: Exact etiology not clear but could be related to metabolic reasons but could well be related to underlying CAD. Non-STEMI: Possibly type II. Optimize medical therapy. Currently stable without any recurrence of chest pain. Acute respiratory failure with hypoxemia and hypercapnia: This has improved. Diabetes: Recommend good control but avoid any hyper or hypoglycemia. Cardiomyopathy, medical regimen reviewed. This is been gradually optimized depending on his blood pressure etc. patient currently on lisinopril, digoxin and beta-leslie therapy. Hypotension: Blood pressure has been stable for last 48 hours. Patient remains somewhat debilitated but otherwise stable. Dr. Gordon similar to cover from tomorrow. - Time Time with patient: 15-25 minutes - CODE STATUS was discussed, patient remains full code. Surrogate decision-maker unchanged. Multiple medical problems were addressed. More than 50% of the time spent coordinating care, discussing management plans with involved caregivers. Management plans discussed with involved personnels. Medical decision making was of moderate to high complexity , patient's has multiple comorbidities. Medications reviewed and adjusted accordingly: Yes
--- NOTE | 2017-02-18 12:03 | PDOC PROGRESS REPORT ---
Subjective Progress Note for:: 02/18/17 Subjective:: The patient is a 61-year-old male admitted on 02 February 2017. Apparently, the patient is homeless and has been living on the streets. He presented with a fever associated with cough with productive sputum and shortness of breath. He was also noted to have encephalopathy upon admission. Shortly after admission he required intubation. He has received a full course of therapy for pneumonia. During this hospital course he has suffered a non-ST elevation myocardial infarction. Nuclear stress test demonstrates an ejection fraction of 36%. The patient has been receiving and dressed toe and Lasix, but, this was discontinued 2 days ago secondary to hypotension. It has now been restarted orally. Yesterday, the patient was complaining of rectal pain. Apparently, he admits to having sex with men and women. Titers for HSV and HIV are pending. The pain has improved. He also reported hemoptysis on 2016. Cardiology continues to follow the patient. Reason For Visit: PNEUMONIA Physical Exam Vital Signs: Temp Pulse Resp BP Pulse Ox 98.0 F 109 H 16 105/61 98 02/18/17 03:32 02/18/17 07:49 02/18/17 07:49 02/18/17 03:32 02/18/17 07:49 Intake & Output 02/17/17 02/18/17 02/19/17 06:59 06:59 06:59 Intake Total 1855 2682 Output Total 1925 3395 Balance -70 -713 Weight 76.7 kg 73.5 kg Additional comments: The patient was lying in bed on his right side. He was actually lying flat when I entered the room. He does not appear to be in any distress. He is only mildly tachypneic. He woke up easily. His mentation appears to be appropriate he is answering questions appropriately. His pulmonary exam again demonstrates coarse rales bilaterally. This is unchanged from yesterday. Cardiac exam is distant but the heart rate appears to be regular. I do not appreciate any murmurs, gallops or rubs. The abdomen is soft flat and benign. The rectal exam does not demonstrate any external hemorrhoids or lesions. The lower extremities demonstrate 1+ edema. The patient has multiple skin lesions that appear to be from areas where he scratched his skin. They do not appear to be superinfected. Results Laboratory Results: 02/18/17 04:21 02/18/17 06:25 02/18/17 02/18/17 02/18/17 02:52 04:21 04:21 WBC 11.1 H RBC 3.43 L Hgb 11.4 L Hct 33.2 L MCV 97 MCH 33.3 MCHC 34.4 RDW 14.9 H Plt Count 186 Sodium Cancelled Potassium Cancelled Chloride Cancelled Carbon Dioxide Cancelled Anion Gap Cancelled BUN Cancelled Creatinine Cancelled Est GFR ( Amer) Cancelled Est GFR (Non-Af Amer) Cancelled Glucose Cancelled Calcium Cancelled Phosphorus Cancelled Magnesium Cancelled Urine Color YELLOW Urine Appearance CLEAR Urine pH 7.0 Ur Specific [place] 1.008 Urine Protein NEGATIVE Urine Glucose (UA) NEGATIVE Urine Ketones NEGATIVE Urine Blood MODERATE H Urine Nitrite POSITIVE H Ur Leukocyte Esterase MODERATE H Urine WBC (Auto) 30 Urine RBC (Auto) 5 02/18/17 06:25 WBC RBC Hgb Hct MCV MCH MCHC RDW Plt Count Sodium 131.5 L Potassium 5.0 Chloride 97 L Carbon Dioxide 23 Anion Gap 12 BUN 26 H Creatinine 0.77 Est GFR ( Amer) > 60 Est GFR (Non-Af Amer) > 60 Glucose 110 Calcium 8.9 Phosphorus 4.6 H Magnesium 1.8 Urine Color Urine Appearance Urine pH Ur Specific [place] Urine Protein Urine Glucose (UA) Urine Ketones Urine Blood Urine Nitrite Ur Leukocyte Esterase Urine WBC (Auto) Urine RBC (Auto) 02/02/17 02/03/17 02/04/17 21:45 03:50 01:42 Troponin I 0.030 0.066 0.043 02/04/17 02/04/17 02/04/17 04:47 12:32 19:25 Troponin I 0.447 1.640 1.740 02/05/17 02/06/17 01:21 03:55 Troponin I 1.360 0.574 Impressions: Chest/Abdomen CTA 02/04/17 00:00 IMPRESSION: 1. There is no evidence of pulmonary emboli. 2. Small a moderate bilateral pleural effusions. 3. Left lower lobe pneumonia versus atelectasis. Chest X-Ray 02/16/17 00:00 IMPRESSION: NO SIGNIFICANT RADIOGRAPHIC FINDING IN THE CHEST. Prior changes resolved. Assessment & Plan - Diagnosis (1) Acute hypoxemic respiratory failure Is this a current diagnosis for this admission?: Yes Plan: The patient has been weaned to room air. (2) Acute metabolic encephalopathy Is this a current diagnosis for this admission?: Yes Plan: Likely associated with alcohol use and chronic abuse. Patient appears to be oriented 3 at present. We will continue to follow. (3) Alcohol abuse Is this a current diagnosis for this admission?: Yes Plan: Continue folate and thiamine. Certainly, this likely aggravates the cardiomyopathy. (4) Chronic systolic CHF (congestive heart failure), NYHA class 3 Is this a current diagnosis for this admission?: Yes Plan: Due to hypotension, Lasix and Entresto were on hold. Lasix has now been re- started orally. Patient is still receiving aspirin, statin therapy and beta- leslie therapy. (5) Coronary artery disease Qualifiers: Coronary Disease-Associated Artery/Lesion type: [place] artery [place] vs. transplanted heart: [place] heart Associated angina: angina presence unspecified Qualified Code(s): I25.10 - Atherosclerotic heart disease of [place] coronary artery without angina pectoris Is this a current diagnosis for this admission?: Yes Plan: Continue aspirin, statin, beta-leslie. 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 (7) Leucocytosis Qualifiers: Leukocytosis type: unspecified Qualified Code(s): D72.829 - Elevated white blood cell count, unspecified Is this a current diagnosis for this admission?: Yes Plan: Likely due to steroids. (8) NSTEMI (non-ST elevated myocardial infarction) Is this a current diagnosis for this admission?: Yes Plan: Cardiology is following. Continue aspirin, statin, beta-leslie. (9) Pneumonia Qualifiers: Pneumonia type: due to unspecified organism Laterality: right Lung location: lower lobe of lung Qualified Code(s): J18.1 - Lobar pneumonia, unspecified organism Is this a current diagnosis for this admission?: Yes Plan: Patient has received a full course of antibiotics for presumed community- acquired pneumonia. (10) Hemoptysis Is this a current diagnosis for this admission?: Yes Plan: This is likely due to pulmonary edema, but, we need to monitor. This has not recurred since 02/16/2017. (11) Urinary tract infection Is this a current diagnosis for this admission?: Yes Plan: Culture is growing enterococcus faecalis group D. Patient is receiving cephalexin. (12) Protein calorie malnutrition Is this a current diagnosis for this admission?: Yes Plan: Patient is currently on a carbohydrate controlled meal. I will ensure that he is or has been seen by our dietitian for recommendations for supplements. His protein calorie malnutrition is likely secondary to his issues with alcoholism and homelessness. - Time Time Spent with patient: 25-34 minutes - Inpatient Certification Medical Necessity: Significant Comorbidiites Make Outpatient Treatment Too Risky , Need Close Monitoring Due to Risk of Patient Decompensation, Risk of Complication if Not Cared For in Hospital
[2017-02-18] MEDS: DIGOXIN 0.125 MG TABLET PO SCH (13:52)
[2017-02-18] MEDS: INSULIN GLARGINE,HUM.REC.ANLOG 300 UNIT/3 ML INSULN.PEN SUBCUT SCH (13:53)
[2017-02-18] MEDS: LACTULOSE SYRUP 20 GM/30 ML UDCUP PO SCH (21:20)
[2017-02-18] MEDS: ATORVASTATIN CALCIUM 80 MG TABLET PO SCH (21:20)
[2017-02-18] MEDS: INSULIN LISPRO 100 UNIT/ML 3 ML VIAL SUBCUT PRN (22:07)
[2017-02-19] MEDS: CEPHALEXIN 500 MG CAPSULE PO SCH ×5 (00:29→23:52)
[2017-02-19] MEDS: IPRATROPIUM/ALBUTEROL 0.5-2.5 MG/3 ML AMPUL NEB SCH ×3 (02:19→13:44)
[2017-02-19 03:18] LABS: APPEARANCE,URINE CLEAR; BILIRUBIN,URINE NEGATIVE (NEGATIVE); GLUCOSE, URINE NEGATIVE (NEGATIVE); KETONES,URINE NEGATIVE (NEGATIVE); LEUKOCYTE ESTERASE,URINE MODERATE (NEGATIVE); NITRITE,URINE POSITIVE (NEGATIVE); PROTEIN,URINE NEGATIVE (NEGATIVE)
[2017-02-19 03:25] LABS: COLOR,URINE DARK YELLOW
[2017-02-19] MEDS: PHENAZOPYRIDINE HCL 100 MG TABLET PO SCH ×3 (05:09→22:55)
[2017-02-19] MEDS: LANSOPRAZOLE 15 MG TAB.RAP.DR PO SCH (05:09)
[2017-02-19] MEDS: GABAPENTIN 300 MG CAPSULE PO SCH ×3 (05:09→22:55)
[2017-02-19 05:34] LABS: ANION GAP 11 (5-19); BLOOD UREA NITROGEN 30 mg/dL (7-20); CALCIUM 9.1 mg/dL (8.4-10.2); CARBON DIOXIDE 26 mmol/L (22-30); CHLORIDE 99 mmol/L (98-107); GLUCOSE 122 mg/dL (75-110); POTASSIUM 4.5 mmol/L (3.6-5.0); SODIUM 135.7 mmol/L (137-145)
[2017-02-19] MEDS: ACETYLCYSTEINE 20% SOLN 800 MG/4 ML VIAL.NEB NEB SCH (08:13)
[2017-02-19] MEDS: FOLIC ACID 1 MG TABLET NG SCH (09:07)
[2017-02-19] MEDS: ASPIRIN 81 MG TABLET, ENT COATED PO SCH (09:08)
[2017-02-19] MEDS: MAGNESIUM OXIDE 400 MG TABLET PO SCH (09:08)
[2017-02-19] MEDS: TAMSULOSIN HCL 0.4 MG CAP.SR.24H PO SCH (09:08)
[2017-02-19] MEDS: LACTOBACILLUS ACIDOPHILUS 250 MG TAB PO SCH ×2 (09:08→17:53)
[2017-02-19] MEDS: GUAIFENESIN 600 MG TABLET.SA PO SCH ×2 (09:09→22:55)
[2017-02-19] MEDS: THIAMINE HCL 100 MG TABLET NG SCH (09:10)
[2017-02-19] MEDS: LISINOPRIL 5 MG TABLET PO SCH (09:11)
[2017-02-19] MEDS: FUROSEMIDE 40 MG TABLET PO SCH (09:14)
[2017-02-19] MEDS: ENOXAPARIN SODIUM INJ 40 MG/0.4 ML DISP.SYRIN SUBCUT SCH (09:14)
[2017-02-19] MEDS: METOPROLOL SUCCINATE 25 MG TAB.SR.24H PO SCH (09:14)
[2017-02-19] MEDS: SPIRONOLACTONE 25 MG TABLET PO SCH (09:14)
[2017-02-19] MEDS: FLUCONAZOLE 200 MG/NS RTU 100 ML IV SCH (09:24)
--- NOTE | 2017-02-19 09:28 | EKG REPORT ---
SEVERITY:- BORDERLINE ECG - SINUS TACHYCARDIA BORDERLINE ST ELEVATION : Confirmed by: Al Xiong 19-Feb-2017 09:27:05
[2017-02-19] MEDS: INSULIN GLARGINE,HUM.REC.ANLOG 300 UNIT/3 ML INSULN.PEN SUBCUT SCH (12:41)
[2017-02-19] MEDS: INSULIN LISPRO 100 UNIT/ML 3 ML VIAL SUBCUT PRN (12:41)
[2017-02-19] MEDS: NYSTATIN CREAM 15 GM TP SCH ×2 (12:41→22:55)
--- NOTE | 2017-02-19 12:46 | PDOC PROGRESS REPORT ---
Subjective Progress Note for:: 02/19/17 Subjective:: Currently without complaints awaiting lunch Reason For Visit: PNEUMONIA Physical Exam Vital Signs: Temp Pulse Resp BP Pulse Ox 98.4 F 78 20 109/38 L 93 02/19/17 12:06 02/19/17 12:06 02/19/17 12:06 02/19/17 12:06 02/19/17 12:06 Intake & Output 02/18/17 02/19/17 02/20/17 06:59 06:59 06:59 Intake Total 2682 2045 Output Total 3395 3150 Balance -713 -1105 Weight 73.5 kg 74.5 kg General appearance: PRESENT: no acute distress, disheveled, well-developed. ABSENT: cooperative, mild distress, morbidly obese, obese, severe distress Head exam: PRESENT: atraumatic, normocephalic Eye exam: PRESENT: conjunctiva pale, EOMI. ABSENT: conjunctival injection, conjunctiva pink, nystagmus, periorbital swelling, scleral icterus Mouth exam: PRESENT: dry mucosa, neck supple, tongue midline. ABSENT: laceration, moist Neck exam: ABSENT: carotid bruit, JVD, lymphadenopathy, thyromegaly, tracheal deviation, tracheostomy Respiratory exam: PRESENT: crackles, decreased breath sounds, prolonged expiratory phas, rhonchi, symmetrical, unlabored, wheezes. ABSENT: accessory muscle use, chest wall tenderness, clear to auscultation vangie, rales, retraction , stridor, tachypnea Cardiovascular exam: PRESENT: RRR, +S1, +S2. ABSENT: irregular rhythm, rubs Pulses: PRESENT: normal radial pulses GI/Abdominal exam: PRESENT: normal bowel sounds, soft. ABSENT: distended, guarding, mass, organolmegaly, rebound, tenderness Extremities exam: ABSENT: clubbing, joint swelling Musculoskeletal exam: ABSENT: deformity, dislocation Neurological exam: PRESENT: awake Skin exam: PRESENT: dry, warm Results Laboratory Results: 02/18/17 04:21 02/19/17 04:08 02/19/17 02/19/17 02:55 04:08 Sodium 135.7 L Potassium 4.5 Chloride 99 Carbon Dioxide 26 Anion Gap 11 BUN 30 H Creatinine 0.93 Est GFR ( Amer) > 60 Est GFR (Non-Af Amer) > 60 Glucose 122 H Calcium 9.1 Urine Color DARK YELLOW Urine Appearance CLEAR Urine pH 6.0 Ur Specific [place] 1.010 Urine Protein NEGATIVE Urine Glucose (UA) NEGATIVE Urine Ketones NEGATIVE Urine Blood NEGATIVE Urine Nitrite POSITIVE H Ur Leukocyte Esterase MODERATE H Urine WBC (Auto) 109 Urine RBC (Auto) 3 02/02/17 02/03/17 02/04/17 21:45 03:50 01:42 Troponin I 0.030 0.066 0.043 02/04/17 02/04/17 02/04/17 04:47 12:32 19:25 Troponin I 0.447 1.640 1.740 02/05/17 02/06/17 01:21 03:55 Troponin I 1.360 0.574 Impressions: Chest/Abdomen CTA 02/04/17 00:00 IMPRESSION: 1. There is no evidence of pulmonary emboli. 2. Small a moderate bilateral pleural effusions. 3. Left lower lobe pneumonia versus atelectasis. Chest X-Ray 02/16/17 00:00 IMPRESSION: NO SIGNIFICANT RADIOGRAPHIC FINDING IN THE CHEST. Prior changes resolved. Assessment & Plan - Diagnosis (1) Acute respiratory failure with hypoxia and hypercapnia Is this a current diagnosis for this admission?: No Plan: 02/04/17 01:50 Gram Stain - Final Tracheal Aspirate Sputum Culture - Final NORMAL GEORGETTE 02/02/17 21:45 Gram Stain - Final Sputum Sputum Culture - Final (2) Pneumonia Qualifiers: Pneumonia type: due to unspecified organism Laterality: right Lung location: lower lobe of lung Qualified Code(s): J18.1 - Lobar pneumonia, unspecified organism Is this a current diagnosis for this admission?: Yes Plan: Enterococcus in urine otherwise no positive cultures significant no leukocytosis ;Afebrile (3) Sepsis Qualifiers: Sepsis type: sepsis due to unspecified organism Qualified Code(s): A41.9 - Sepsis, unspecified organism Is this a current diagnosis for this admission?: No
--- NOTE | 2017-02-19 14:47 | PDOC PROGRESS REPORT ---
Subjective Progress Note for:: 02/19/17 Subjective:: The patient is a 61-year-old male admitted on 02 February 2017. Apparently, the patient is homeless and has been living on the streets. He presented with a fever associated with cough with productive sputum and shortness of breath. He was also noted to have encephalopathy upon admission. Shortly after admission he required intubation. He has received a full course of therapy for pneumonia. During this hospital course he has suffered a non-ST elevation myocardial infarction. Nuclear stress test demonstrates an ejection fraction of 36%. The patient had been receiving Entresto and Lasix, but, this was discontinued 3 days ago secondary to hypotension. Lasix has now been restarted orally. Intermittently, the patient was complaining of rectal pain. Apparently , he admits to having sex with men and women. Titers for HSV and HIV are pending. The pain has improved. He also reported hemoptysis on 02/16/2017. Cardiology continues to follow the patient. RPR is nonreactive, chlamydia was negative by PCR analysis, HIV 1 and 2 are negative and gonorrhea is negative. HSV 1 and 2 titers are pending. Reason For Visit: PNEUMONIA Physical Exam Vital Signs: Temp Pulse Resp BP Pulse Ox 98.4 F 92 14 109/38 L 97 02/19/17 12:06 02/19/17 13:44 02/19/17 13:44 02/19/17 12:06 02/19/17 13:44 Intake & Output 02/18/17 02/19/17 02/20/17 06:59 06:59 06:59 Intake Total 2682 2045 Output Total 3395 3150 Balance -713 -1105 Weight 73.5 kg 74.5 kg Additional comments: The patient appears much older than his stated age. He continues to be disheveled. He does appear chronically ill. His cognition and mentation are appropriate. His facial appearance is unremarkable. His lungs continue to demonstrate coarse rales bilaterally both anteriorly and posteriorly. His cardiac exam is regular without murmurs, gallops or rubs. The abdomen is soft and flat. Bowel sounds are noted in the lower quadrants. The lower extremities show 1+ edema. The patient has multiple excoriations on his extremities which appear to be from scratching. He does not appear to have any cellulitis. Results Laboratory Results: 02/18/17 04:21 02/19/17 04:08 02/19/17 02/19/17 02:55 04:08 Sodium 135.7 L Potassium 4.5 Chloride 99 Carbon Dioxide 26 Anion Gap 11 BUN 30 H Creatinine 0.93 Est GFR ( Amer) > 60 Est GFR (Non-Af Amer) > 60 Glucose 122 H Calcium 9.1 Urine Color DARK YELLOW Urine Appearance CLEAR Urine pH 6.0 Ur Specific [place] 1.010 Urine Protein NEGATIVE Urine Glucose (UA) NEGATIVE Urine Ketones NEGATIVE Urine Blood NEGATIVE Urine Nitrite POSITIVE H Ur Leukocyte Esterase MODERATE H Urine WBC (Auto) 109 Urine RBC (Auto) 3 02/02/17 02/03/17 02/04/17 21:45 03:50 01:42 Troponin I 0.030 0.066 0.043 02/04/17 02/04/17 02/04/17 04:47 12:32 19:25 Troponin I 0.447 1.640 1.740 02/05/17 02/06/17 01:21 03:55 Troponin I 1.360 0.574 Impressions: Chest/Abdomen CTA 02/04/17 00:00 IMPRESSION: 1. There is no evidence of pulmonary emboli. 2. Small a moderate bilateral pleural effusions. 3. Left lower lobe pneumonia versus atelectasis. Chest X-Ray 02/16/17 00:00 IMPRESSION: NO SIGNIFICANT RADIOGRAPHIC FINDING IN THE CHEST. Prior changes resolved. Assessment & Plan - Diagnosis (1) Acute hypoxemic respiratory failure Is this a current diagnosis for this admission?: Yes Plan: The patient has been weaned to room air. (2) Acute metabolic encephalopathy Is this a current diagnosis for this admission?: Yes Plan: Likely associated with alcohol use and chronic abuse. Patient appears to be oriented 3 at present. We will continue to follow. (3) Alcohol abuse Is this a current diagnosis for this admission?: Yes Plan: Continue folate and thiamine. Certainly, this likely aggravates the cardiomyopathy. (4) Chronic systolic CHF (congestive heart failure), NYHA class 3 Is this a current diagnosis for this admission?: Yes Plan: Due to hypotension, Lasix and Entresto were on hold. Lasix has now been re- started orally. Patient is still receiving aspirin, statin therapy and beta- leslie therapy. He is also receiving Aldactone. (5) Coronary artery disease Qualifiers: Coronary Disease-Associated Artery/Lesion type: [place] artery [place] vs. transplanted heart: [place] heart Associated angina: angina presence unspecified Qualified Code(s): I25.10 - Atherosclerotic heart disease of [place] coronary artery without angina pectoris Is this a current diagnosis for this admission?: Yes Plan: Continue aspirin, statin, beta-leslie. (6) Diabetes mellitus Qualifiers: Diabetes mellitus type: type 2 Diabetes mellitus complication status: with unspecified complications Diabetes mellitus intermediate insulin use: unspecified keno terminal operator insulin use status Qualified Code(s): E11.8 - Type 2 diabetes mellitus with unspecified complications Is this a current diagnosis for this admission?: Yes Plan: Continue Lantus and sliding scale. (7) Leucocytosis Qualifiers: Leukocytosis type: unspecified Qualified Code(s): D72.829 - Elevated white blood cell count, unspecified Is this a current diagnosis for this admission?: Yes Plan: Likely due to steroids. Resolving. (8) NSTEMI (non-ST elevated myocardial infarction) Is this a current diagnosis for this admission?: Yes Plan: Cardiology is following. Continue aspirin, statin, beta-leslie. (9) Pneumonia Qualifiers: Pneumonia type: due to unspecified organism Laterality: right Lung location: lower lobe of lung Qualified Code(s): J18.1 - Lobar pneumonia, unspecified organism Is this a current diagnosis for this admission?: Yes Plan: Patient has received a full course of antibiotics for presumed community- acquired pneumonia. (10) Hemoptysis Is this a current diagnosis for this admission?: Yes Plan: This is likely due to pulmonary edema, but, we need to monitor. This has not recurred since 02/16/2017. (11) Urinary tract infection Is this a current diagnosis for this admission?: Yes Plan: Culture is growing enterococcus faecalis group D. Patient is receiving cephalexin. (12) Protein calorie malnutrition Is this a current diagnosis for this admission?: Yes Plan: Patient is currently on a carbohydrate controlled meal. I will ensure that he is or has been seen by our dietitian for recommendations for supplements. His protein calorie malnutrition is likely secondary to his issues with alcoholism and homelessness. - Time Time Spent with patient: 25-34 minutes - Inpatient Certification Medical Necessity: Significant Comorbidiites Make Outpatient Treatment Too Risky , Need Close Monitoring Due to Risk of Patient Decompensation
[2017-02-19] MEDS: DIGOXIN 0.125 MG TABLET PO SCH (15:37)
[2017-02-19] MEDS: ACETAMINOPHEN 325 MG TABLET PO PRN (16:48)
--- NOTE | 2017-02-19 20:40 | PDOC PROGRESS REPORT ---
Subjective Progress Note for:: 02/19/17 Subjective:: Patient claims to be doing fine. Pt is denying any chest arm or neck discomfort. Patient denying any PND, orthopnea. Patient denied any sustained palpitations, dizziness, syncope, near syncope. Patient denying any fever chills. Patient denying any other significant discomfort. Patient noted to have some intermittent low blood pressure but relatively asymptomatic. Patient is maintaining sinus rhythm. No sustained tachycardia or bradycardia arrhythmias noted. Review of systems: Rest review of systems negative. Medications: Medications have been reviewed. Reason For Visit: PNEUMONIA Physical Exam Vital Signs: Temp Pulse Resp BP Pulse Ox 97.9 F 95 18 106/62 100 02/19/17 19:39 02/19/17 19:39 02/19/17 19:39 02/19/17 19:39 02/19/17 19:39 Intake & Output 02/18/17 02/19/17 02/20/17 06:59 06:59 06:59 Intake Total 2682 2045 1385 Output Total 3395 3150 500 Balance -713 -1105 885 Weight 73.5 kg 74.5 kg Exam: GENERAL: well-nourished and in no acute distress. Alert and oriented x3 HEAD: Atraumatic, normocephalic. EYES: Pupils equal round and reactive to light, extraocular movements intact, sclera anicteric, conjunctiva are normal. ENT: TMs normal, nares patent, oropharynx clear without exudates. Moist mucous membranes. No oral ulcerations or bleeding gums noted NECK: supple without lymphadenopathy. Trachea is central. No cervical or axillary lymphadenopathy noted. Carotids are 2+, JVD WNL LUNGS: Respiration seems nonlabored, no significant accessory muscle action noted. Breath sounds clear to auscultation bilaterally and equal noted. No wheezes rales or rhonchi noted. No significant dullness noted on percussion. CHEST: Palpation of the chest wall shows no significant chest wall tenderness. No other significant abnormalities noted. 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 ABDOMEN: Soft, no significant tenderness appreciated, normoactive bowel sounds. No guarding, no rebound. No rigidity noted . No masses appreciated. EXTREMITIES: Pedal pulses are 1-2+, no calf tenderness noted. No clubbing or cyanosis.1+ pedal edema noted NEUROLOGICAL: Focused neurological exam showed no significant neurologic deficit. Normal speech, no focal weakness appreciated. PSYCH: Normal mood, normal affect. Judgment and insight within normal limits. SKIN: No significant ecchymosis, rash, ulcerations or signs of pruritus noted. MUSCULOSKELETAL EXAM: No significant joint swelling noted. Results Laboratory Results: 02/18/17 04:21 02/19/17 04:08 02/19/17 02/19/17 02:55 04:08 Sodium 135.7 L Potassium 4.5 Chloride 99 Carbon Dioxide 26 Anion Gap 11 BUN 30 H Creatinine 0.93 Est GFR ( Amer) > 60 Est GFR (Non-Af Amer) > 60 Glucose 122 H Calcium 9.1 Urine Color DARK YELLOW Urine Appearance CLEAR Urine pH 6.0 Ur Specific [place] 1.010 Urine Protein NEGATIVE Urine Glucose (UA) NEGATIVE Urine Ketones NEGATIVE Urine Blood NEGATIVE Urine Nitrite POSITIVE H Ur Leukocyte Esterase MODERATE H Urine WBC (Auto) 109 Urine RBC (Auto) 3 02/02/17 02/03/17 02/04/17 21:45 03:50 01:42 Troponin I 0.030 0.066 0.043 02/04/17 02/04/17 02/04/17 04:47 12:32 19:25 Troponin I 0.447 1.640 1.740 02/05/17 02/06/17 01:21 03:55 Troponin I 1.360 0.574 Impressions: Chest/Abdomen CTA 02/04/17 00:00 IMPRESSION: 1. There is no evidence of pulmonary emboli. 2. Small a moderate bilateral pleural effusions. 3. Left lower lobe pneumonia versus atelectasis. Chest X-Ray 02/16/17 00:00 IMPRESSION: NO SIGNIFICANT RADIOGRAPHIC FINDING IN THE CHEST. Prior changes resolved. Assessment & Plan - Diagnosis (1) Coronary artery disease Qualifiers: Coronary Disease-Associated Artery/Lesion type: [place] artery [place] vs. transplanted heart: [place] heart Associated angina: angina presence unspecified Qualified Code(s): I25.10 - Atherosclerotic heart disease of [place] coronary artery without angina pectoris Is this a current diagnosis for this admission?: Yes (2) Elevated troponin Is this a current diagnosis for this admission?: Yes (3) NSTEMI (non-ST elevated myocardial infarction) Is this a current diagnosis for this admission?: Yes (4) Acute respiratory failure with hypoxia and hypercapnia Is this a current diagnosis for this admission?: No (5) Diabetes mellitus Qualifiers: Diabetes mellitus type: type 2 Diabetes mellitus complication status: with unspecified complications Diabetes mellitus pool coordinator insulin use: unspecified group home insulin use status Qualified Code(s): E11.8 - Type 2 diabetes mellitus with unspecified complications Is this a current diagnosis for this admission?: Yes (7) Hypotension (arterial) Qualifiers: Hypotension type: unspecified hypotension type Qualified Code(s): I95.9 - Hypotension, unspecified Is this a current diagnosis for this admission?: Yes - Notes Notes: Coronary artery disease: Patient has known history of CAD and is status post stent and also possible prior myocardial infarction. Patient medical therapy would need to be optimized. Currently on LIANE inhibitor. Increase in dose has been difficult because of intermittent low blood pressure.. Dose to be increased as tolerated. Elevated troponin I: This was evaluated by a nuclear stress test. Medical management has been recommended. However if patient has recurrent chest pain then there will be low threshold for pursuing cardiac catheterization. Non-STEMI: Possibly type II. Optimize medical therapy. Currently stable without any recurrence of chest pain. Acute respiratory failure with hypoxemia and hypercapnia: This has improved. Diabetes: Recommend good control but avoid any hyper or hypoglycemia. Cardiomyopathy, medical regimen reviewed. This is been gradually optimized depending on his blood pressure etc. patient currently on lisinopril, digoxin and beta-leslie therapy. Hypotension: Blood pressure has been stable mostly. May consider adding Midodrin if needed. Patient remains somewhat debilitated but otherwise stable. Dr. Leyva similar to cover from tomorrow. - Time Time with patient: 15-25 minutes - CODE STATUS was discussed, patient remains full code. Multiple medical problems were addressed. More than 50% of the time spent coordinating care, discussing management plans with involved caregivers. Management plans discussed with involved personnels. Medical decision making was of moderate to high complexity, patient's has multiple comorbidities. Medications reviewed and adjusted accordingly: Yes
[2017-02-19] MEDS: LACTULOSE SYRUP 20 GM/30 ML UDCUP PO SCH (22:54)
[2017-02-19] MEDS: ATORVASTATIN CALCIUM 80 MG TABLET PO SCH (22:55)
[2017-02-20 04:44] LABS: HEMATOCRIT 35.4 % (37.9-51.0); HEMOGLOBIN 12.1 g/dL (13.5-17.0); MEAN CORPUSCULAR VOLUME 97 fl (80-97); PLATELET COUNT 232 10^3/uL (150-450); RED BLOOD COUNT 3.65 10^6/uL (4.35-5.55); RED CELL DISTRIBUTION WIDTH 15.1 % (11.5-14.0); WHITE BLOOD COUNT 10.6 10^3/uL (4.0-10.5)
[2017-02-20 05:06] LABS: ANION GAP 9 (5-19); BLOOD UREA NITROGEN 22 mg/dL (7-20); CARBON DIOXIDE 26 mmol/L (22-30); CHLORIDE 101 mmol/L (98-107); GLUCOSE 101 mg/dL (75-110); POTASSIUM 4.6 mmol/L (3.6-5.0); SODIUM 135.9 mmol/L (137-145)
[2017-02-20] MEDS: GABAPENTIN 300 MG CAPSULE PO SCH ×3 (06:20→22:38)
[2017-02-20] MEDS: CEPHALEXIN 500 MG CAPSULE PO SCH ×4 (06:21→23:54)
[2017-02-20] MEDS: PHENAZOPYRIDINE HCL 100 MG TABLET PO SCH ×3 (06:21→22:38)
[2017-02-20] MEDS: LANSOPRAZOLE 15 MG TAB.RAP.DR PO SCH (06:22)
[2017-02-20 07:40] LABS: HSV-II IGG AB <0.91 index (0.00-0.90)
[2017-02-20] MEDS: FOLIC ACID 1 MG TABLET NG SCH (09:39)
[2017-02-20] MEDS: ENOXAPARIN SODIUM INJ 40 MG/0.4 ML DISP.SYRIN SUBCUT SCH (09:40)
[2017-02-20] MEDS: MAGNESIUM OXIDE 400 MG TABLET PO SCH (09:41)
[2017-02-20] MEDS: TAMSULOSIN HCL 0.4 MG CAP.SR.24H PO SCH (09:41)
[2017-02-20] MEDS: FUROSEMIDE 40 MG TABLET PO SCH (09:41)
[2017-02-20] MEDS: METOPROLOL SUCCINATE 25 MG TAB.SR.24H PO SCH (09:41)
[2017-02-20] MEDS: LISINOPRIL 5 MG TABLET PO SCH (09:42)
[2017-02-20] MEDS: LACTOBACILLUS ACIDOPHILUS 250 MG TAB PO SCH ×2 (09:42→17:46)
[2017-02-20] MEDS: GUAIFENESIN 600 MG TABLET.SA PO SCH ×2 (09:42→22:38)
[2017-02-20] MEDS: FLUCONAZOLE 100 MG TABLET PO SCH (09:42)
[2017-02-20] MEDS: SPIRONOLACTONE 25 MG TABLET PO SCH (09:43)
[2017-02-20] MEDS: THIAMINE HCL 100 MG TABLET NG SCH (09:43)
[2017-02-20] MEDS: ASPIRIN 81 MG TABLET, ENT COATED PO SCH (09:43)
[2017-02-20] MEDS: INSULIN GLARGINE,HUM.REC.ANLOG 300 UNIT/3 ML INSULN.PEN SUBCUT SCH (12:46)
[2017-02-20] MEDS: NYSTATIN CREAM 15 GM TP SCH ×2 (12:49→22:45)
[2017-02-20] MEDS: DIGOXIN 0.125 MG TABLET PO SCH (13:21)
--- NOTE | 2017-02-20 14:43 | PDOC PROGRESS REPORT ---
Subjective Progress Note for:: 02/20/17 Subjective:: Patient claims to be doing fine. Pt is denying any chest arm or neck discomfort. Patient denying any PND, orthopnea. Patient denied any sustained palpitations, dizziness, syncope, near syncope. Patient denying any fever chills. Patient denying any other significant discomfort. Blood pressure is noted to be stable. Patient is maintaining sinus rhythm. No sustained tachycardia or bradycardia arrhythmias noted. Intermittent sinus tachycardia noted. Review of systems: Rest review of systems negative. Medications: Medications have been reviewed. Reason For Visit: PNEUMONIA Physical Exam Vital Signs: Temp Pulse Resp BP Pulse Ox 98.0 F 98 16 114/70 93 02/20/17 12:45 02/20/17 12:45 02/20/17 12:45 02/20/17 12:45 02/20/17 12:45 Intake & Output 02/19/17 02/20/17 02/21/17 06:59 06:59 06:59 Intake Total 2045 1388 Output Total 3150 1650 Balance -1105 -262 Weight 74.5 kg 73.5 kg Exam: GENERAL: well-nourished and in no acute distress. Alert and oriented x3 HEAD: Atraumatic, normocephalic. EYES: Pupils equal round and reactive to light, extraocular movements intact, sclera anicteric, conjunctiva are normal. ENT: TMs normal, nares patent, oropharynx clear without exudates. Moist mucous membranes. No oral ulcerations or bleeding gums noted NECK: supple without lymphadenopathy. Trachea is central. No cervical or axillary lymphadenopathy noted. Carotids are 2+, JVD WNL LUNGS: Respiration seems nonlabored, no significant accessory muscle action noted. Breath sounds clear to auscultation bilaterally and equal noted. No wheezes rales or rhonchi noted. No significant dullness noted on percussion. CHEST: Palpation of the chest wall shows no significant chest wall tenderness. No other significant abnormalities noted. 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 ABDOMEN: Soft, no significant tenderness appreciated, normoactive bowel sounds. No guarding, no rebound. No rigidity noted . No masses appreciated. EXTREMITIES: Pedal pulses are 1-2+, no calf tenderness noted. No clubbing or cyanosis.trace to 1+ pedal edema noted NEUROLOGICAL: Focused neurological exam showed no significant neurologic deficit. Normal speech, no focal weakness appreciated. PSYCH: Normal mood, normal affect. Judgment and insight within normal limits. SKIN: No significant ecchymosis, rash, ulcerations or signs of pruritus noted. MUSCULOSKELETAL EXAM: No significant joint swelling noted. Results Laboratory Results: 02/20/17 04:24 02/20/17 04:24 02/20/17 02/20/17 04:24 04:24 WBC 10.6 H RBC 3.65 L Hgb 12.1 L Hct 35.4 L MCV 97 MCH 33.0 MCHC 34.0 RDW 15.1 H Plt Count 232 Sodium 135.9 L Potassium 4.6 Chloride 101 Carbon Dioxide 26 Anion Gap 9 BUN 22 H Creatinine 0.65 Est GFR ( Amer) > 60 Est GFR (Non-Af Amer) > 60 Glucose 101 Calcium 9.0 02/02/17 02/03/17 02/04/17 21:45 03:50 01:42 Troponin I 0.030 0.066 0.043 02/04/17 02/04/17 02/04/17 04:47 12:32 19:25 Troponin I 0.447 1.640 1.740 02/05/17 02/06/17 01:21 03:55 Troponin I 1.360 0.574 Impressions: Chest/Abdomen CTA 02/04/17 00:00 IMPRESSION: 1. There is no evidence of pulmonary emboli. 2. Small a moderate bilateral pleural effusions. 3. Left lower lobe pneumonia versus atelectasis. Chest X-Ray 02/16/17 00:00 IMPRESSION: NO SIGNIFICANT RADIOGRAPHIC FINDING IN THE CHEST. Prior changes resolved. Assessment & Plan - Diagnosis (1) Coronary artery disease Qualifiers: Coronary Disease-Associated Artery/Lesion type: [place] artery [place] vs. transplanted heart: [place] heart Associated angina: angina presence unspecified Qualified Code(s): I25.10 - Atherosclerotic heart disease of [place] coronary artery without angina pectoris Is this a current diagnosis for this admission?: Yes (2) Elevated troponin Is this a current diagnosis for this admission?: Yes (3) NSTEMI (non-ST elevated myocardial infarction) Is this a current diagnosis for this admission?: Yes (4) Acute respiratory failure with hypoxia and hypercapnia Is this a current diagnosis for this admission?: No (5) Diabetes mellitus Qualifiers: Diabetes mellitus type: type 2 Diabetes mellitus complication status: with unspecified complications Diabetes mellitus halfway insulin use: unspecified terminal operator insulin use status Qualified Code(s): E11.8 - Type 2 diabetes mellitus with unspecified complications Is this a current diagnosis for this admission?: Yes (7) Hypotension (arterial) Qualifiers: Hypotension type: unspecified hypotension type Qualified Code(s): I95.9 - Hypotension, unspecified Is this a current diagnosis for this admission?: Yes - Notes Notes: Coronary artery disease: Patient has known history of CAD and is status post stent and also possible prior myocardial infarction. Patient medical therapy would need to be optimized. Currently on LIANE inhibitor. Will reduce Lasix to 20 mg p.o. daily. This may allow optimization of LIANE inhibitor and beta- leslie therapy. Dose to be increased as tolerated. Elevated troponin I: This was evaluated by a nuclear stress test. Medical management has been recommended. However if patient has recurrent chest pain then there will be low threshold for pursuing cardiac catheterization. Non-STEMI: Possibly type II. Optimize medical therapy. Currently stable without any recurrence of chest pain. Acute respiratory failure with hypoxemia and hypercapnia: This has improved. Diabetes: Recommend good control but avoid any hyper or hypoglycemia. Cardiomyopathy, medical regimen reviewed. This is been gradually optimized depending on his blood pressure etc. patient currently on lisinopril, digoxin and beta-leslie therapy. Will reduce Lasix to 20 mg p.o. daily. Patient remains somewhat debilitated but otherwise stable. Currently seems to have improved but now a placement problem. Patient apparently is homeless. Dr. Leyva similar to cover from tomorrow. - Time Time with patient: 15-25 minutes - CODE STATUS was discussed, patient remains full code. Surrogate decision-maker unchanged. Multiple medical problems were addressed. More than 50% of the time spent coordinating care, discussing management plans with involved caregivers. Management plans discussed with involved personnels. Medical decision making was of moderate to high complexity , patient's has multiple comorbidities. Medications reviewed and adjusted accordingly: Yes
--- NOTE | 2017-02-20 15:35 | PDOC PROGRESS REPORT ---
Subjective Progress Note for:: 02/20/17 Subjective:: Patient states he is quite comfortable He has no shortness of breath no chest pains no abdominal pain He did not ambulate with physical therapy and we will request reevaluation Discharge planning consulted Patient is homeless and will likely need to be admitted to [facility] facility Reason For Visit: PNEUMONIA Physical Exam Vital Signs: Temp Pulse Resp BP Pulse Ox 98.0 F 98 16 114/70 93 02/20/17 12:45 02/20/17 12:45 02/20/17 12:45 02/20/17 12:45 02/20/17 12:45 Intake & Output 02/19/17 02/20/17 02/21/17 00:59 00:59 00:59 Intake Total 1770 1690 3 Output Total 3675 1550 650 Balance -1905 140 -647 Weight 73.5 kg 74.5 kg 73.5 kg General appearance: PRESENT: no acute distress, disheveled Head exam: PRESENT: atraumatic, normocephalic Eye exam: PRESENT: conjunctiva pink, EOMI, PERRLA. ABSENT: scleral icterus Neck exam: ABSENT: carotid bruit, JVD, lymphadenopathy, thyromegaly Respiratory exam: PRESENT: rhonchi, wheezes. ABSENT: accessory muscle use Cardiovascular exam: PRESENT: RRR. ABSENT: diastolic murmur, rubs, systolic murmur Pulses: PRESENT: normal dorsalis pedis pul GI/Abdominal exam: PRESENT: normal bowel sounds, soft. ABSENT: distended, guarding, mass, organolmegaly, rebound, tenderness Extremities exam: PRESENT: full ROM. ABSENT: calf tenderness, clubbing, pedal edema Neurological exam: PRESENT: alert, awake, oriented to person, oriented to place , oriented to time, oriented to situation, CN II-XII grossly intact. ABSENT: motor sensory deficit Results Laboratory Results: 02/20/17 04:24 02/20/17 04:24 02/20/17 02/20/17 04:24 04:24 WBC 10.6 H RBC 3.65 L Hgb 12.1 L Hct 35.4 L MCV 97 MCH 33.0 MCHC 34.0 RDW 15.1 H Plt Count 232 Sodium 135.9 L Potassium 4.6 Chloride 101 Carbon Dioxide 26 Anion Gap 9 BUN 22 H Creatinine 0.65 Est GFR ( Amer) > 60 Est GFR (Non-Af Amer) > 60 Glucose 101 Calcium 9.0 02/02/17 02/03/17 02/04/17 21:45 03:50 01:42 Troponin I 0.030 0.066 0.043 02/04/17 02/04/17 02/04/17 04:47 12:32 19:25 Troponin I 0.447 1.640 1.740 02/05/17 02/06/17 01:21 03:55 Troponin I 1.360 0.574 Impressions: Chest/Abdomen CTA 02/04/17 00:00 IMPRESSION: 1. There is no evidence of pulmonary emboli. 2. Small a moderate bilateral pleural effusions. 3. Left lower lobe pneumonia versus atelectasis. Chest X-Ray 02/16/17 00:00 IMPRESSION: NO SIGNIFICANT RADIOGRAPHIC FINDING IN THE CHEST. Prior changes resolved. Assessment & Plan - Diagnosis (1) Cardiomyopathy Qualifiers: Cardiomyopathy type: unspecified Qualified Code(s): I42.9 - Cardiomyopathy , unspecified Is this a current diagnosis for this admission?: Yes (2) Chronic systolic CHF (congestive heart failure), NYHA class 3 Is this a current diagnosis for this admission?: Yes (3) Coronary artery disease Qualifiers: Coronary Disease-Associated Artery/Lesion type: [place] artery [place] vs. transplanted heart: [place] heart Associated angina: angina presence unspecified Qualified Code(s): I25.10 - Atherosclerotic heart disease of [place] coronary artery without angina pectoris Is this a current diagnosis for this admission?: Yes (4) NSTEMI (non-ST elevated myocardial infarction) Is this a current diagnosis for this admission?: Yes (5) Protein calorie malnutrition Is this a current diagnosis for this admission?: Yes (6) Hemoptysis Is this a current diagnosis for this admission?: Yes Plan: Resolved (7) Pneumonia Qualifiers: Pneumonia type: due to unspecified organism Laterality: right Lung location: lower lobe of lung Qualified Code(s): J18.1 - Lobar pneumonia, unspecified organism Is this a current diagnosis for this admission?: Yes - Plan Summary Plan Summary: At this time patient is quite stable CHF is well compensated Noted that previous echocardiogram shows an EF of 35% ; continue lisinopril metoprolol Aspirin and Lasix Acute non-STEMI stable Continue medical management Patient has had no further chest pain Respiratory status is stable hemoptysis has resolved; pneumonia resolved General debility and ambulatory dysfunction; patient may be a candidate for short-term rehab We will transfer the patient to medical unit ; telemetry may be discontinued
[2017-02-20] MEDS: ACETAMINOPHEN 325 MG TABLET PO PRN (22:37)
[2017-02-20] MEDS: ATORVASTATIN CALCIUM 80 MG TABLET PO SCH (22:38)
[2017-02-20] MEDS: LACTULOSE SYRUP 20 GM/30 ML UDCUP PO SCH (22:38)
[2017-02-21] MEDS: PHENAZOPYRIDINE HCL 100 MG TABLET PO SCH ×3 (06:01→21:46)
[2017-02-21] MEDS: LANSOPRAZOLE 15 MG TAB.RAP.DR PO SCH (06:01)
[2017-02-21] MEDS: CEPHALEXIN 500 MG CAPSULE PO SCH ×3 (06:01→18:21)
[2017-02-21] MEDS: ACETAMINOPHEN 325 MG TABLET PO PRN (06:01)
[2017-02-21] MEDS: GABAPENTIN 300 MG CAPSULE PO SCH ×3 (06:02→21:45)
[2017-02-21] MEDS: ENOXAPARIN SODIUM INJ 40 MG/0.4 ML DISP.SYRIN SUBCUT SCH (09:21)
[2017-02-21] MEDS: METOPROLOL SUCCINATE 25 MG TAB.SR.24H PO SCH (09:22)
[2017-02-21] MEDS: FOLIC ACID 1 MG TABLET NG SCH (09:22)
[2017-02-21] MEDS: MAGNESIUM OXIDE 400 MG TABLET PO SCH (09:22)
[2017-02-21] MEDS: FUROSEMIDE 40 MG TABLET PO SCH (09:23)
[2017-02-21] MEDS: ASPIRIN 81 MG TABLET, ENT COATED PO SCH (09:23)
[2017-02-21] MEDS: THIAMINE HCL 100 MG TABLET NG SCH (09:23)
[2017-02-21] MEDS: FLUCONAZOLE 100 MG TABLET PO SCH (09:23)
[2017-02-21] MEDS: GUAIFENESIN 600 MG TABLET.SA PO SCH ×2 (09:23→21:46)
[2017-02-21] MEDS: LISINOPRIL 5 MG TABLET PO SCH (09:23)
[2017-02-21] MEDS: TAMSULOSIN HCL 0.4 MG CAP.SR.24H PO SCH (09:23)
[2017-02-21] MEDS: SPIRONOLACTONE 25 MG TABLET PO SCH (09:24)
[2017-02-21] MEDS: LACTOBACILLUS ACIDOPHILUS 250 MG TAB PO SCH ×2 (09:24→18:21)
[2017-02-21] MEDS: INSULIN GLARGINE,HUM.REC.ANLOG 300 UNIT/3 ML INSULN.PEN SUBCUT SCH (11:34)
[2017-02-21] MEDS: NYSTATIN CREAM 15 GM TP SCH (11:35)
--- NOTE | 2017-02-21 14:19 | PDOC PROGRESS REPORT ---
Subjective Progress Note for:: 02/21/17 Subjective:: Patient has no complaints States he is generally tired no fever no chills Reason For Visit: PNEUMONIA Physical Exam Vital Signs: Temp Pulse Resp BP Pulse Ox 98.0 F 88 16 98/46 L 97 02/21/17 04:45 02/21/17 07:52 02/21/17 07:52 02/21/17 04:45 02/21/17 07:52 Intake & Output 02/20/17 02/21/17 02/22/17 00:59 00:59 00:59 Intake Total 1690 1478 1122 Output Total 1550 4220 2400 Balance 140 -8642 -1278 Weight 74.5 kg 73.5 kg 70.5 kg General appearance: PRESENT: no acute distress, disheveled Head exam: PRESENT: atraumatic, normocephalic Eye exam: PRESENT: conjunctiva pink, EOMI, PERRLA. ABSENT: scleral icterus Neck exam: ABSENT: carotid bruit, JVD, lymphadenopathy, thyromegaly Respiratory exam: PRESENT: rhonchi, wheezes. ABSENT: accessory muscle use Cardiovascular exam: PRESENT: RRR. ABSENT: diastolic murmur, rubs, systolic murmur Pulses: PRESENT: normal dorsalis pedis pul GI/Abdominal exam: PRESENT: normal bowel sounds, soft. ABSENT: distended, guarding, mass, organolmegaly, rebound, tenderness Extremities exam: PRESENT: full ROM. ABSENT: calf tenderness, clubbing, pedal edema Neurological exam: PRESENT: alert, awake, oriented to person, oriented to place , oriented to time, oriented to situation, CN II-XII grossly intact. ABSENT: motor sensory deficit Results Laboratory Results: 02/20/17 04:24 02/20/17 04:24 02/20/17 04:24 TSH 1.88 02/02/17 02/03/17 02/04/17 21:45 03:50 01:42 Troponin I 0.030 0.066 0.043 NT-Pro-B Natriuret Pep 02/04/17 02/04/17 02/04/17 04:47 12:32 19:25 Troponin I 0.447 1.640 1.740 NT-Pro-B Natriuret Pep 02/05/17 02/06/17 02/20/17 01:21 03:55 04:24 Troponin I 1.360 0.574 NT-Pro-B Natriuret Pep 1810 H Impressions: Chest/Abdomen CTA 02/04/17 00:00 IMPRESSION: 1. There is no evidence of pulmonary emboli. 2. Small a moderate bilateral pleural effusions. 3. Left lower lobe pneumonia versus atelectasis. Chest X-Ray 02/16/17 00:00 IMPRESSION: NO SIGNIFICANT RADIOGRAPHIC FINDING IN THE CHEST. Prior changes resolved. Assessment & Plan - Diagnosis (1) Cardiomyopathy Qualifiers: Cardiomyopathy type: unspecified Qualified Code(s): I42.9 - Cardiomyopathy , unspecified Is this a current diagnosis for this admission?: Yes (2) Chronic systolic CHF (congestive heart failure), NYHA class 3 Is this a current diagnosis for this admission?: Yes (3) Coronary artery disease Qualifiers: Coronary Disease-Associated Artery/Lesion type: [place] artery [place] vs. transplanted heart: [place] heart Associated angina: angina presence unspecified Qualified Code(s): I25.10 - Atherosclerotic heart disease of [place] coronary artery without angina pectoris Is this a current diagnosis for this admission?: Yes (4) NSTEMI (non-ST elevated myocardial infarction) Is this a current diagnosis for this admission?: Yes (5) Protein calorie malnutrition Is this a current diagnosis for this admission?: Yes (6) Hemoptysis Is this a current diagnosis for this admission?: Yes (7) Pneumonia Qualifiers: Pneumonia type: due to unspecified organism Laterality: right Lung location: lower lobe of lung Qualified Code(s): J18.1 - Lobar pneumonia, unspecified organism Is this a current diagnosis for this admission?: Yes - Time Time Spent with patient: 15-24 minutes - Plan Summary Plan Summary: Continue present management Patient is homeless and will need to be admitted to skilled rehab facility Discharge planning pending
[2017-02-21] MEDS: DIGOXIN 0.125 MG TABLET PO SCH (15:22)
--- NOTE | 2017-02-21 20:14 | PROGRESS NOTE E ---
Progress Note NAME: TAMMY RICHARDS : 1955 AGE: 61Y DATE: 02/21/2017 ROOM: 308 SUBJECTIVE: Note that the patient denies any anginal chest pain but has the chest wall pain reproducible by pressing on the sternum. He has no shortness of breath. There is no PND, orthopnea. His leg edema is much improved. He remains in sinus rhythm. There is no ventricular arrhythmia seen. There is no tachy or bradyarrhythmias noted. The rest of the review of symptoms is negative. MEDICATIONS: Have been reviewed. OBJECTIVE: VITAL SIGNS: On examination the patient is afebrile with a temperature of 97.4 degrees Fahrenheit. His pulse is 81 beats per minute, blood pressure 103/61, respirations are 18 per minute, O2 saturations are 100% on room air. GENERAL: The patient appears to be well-built and in no acute distress. He is well-nourished. HEENT: Head is atraumatic, normocephalic. Eyes: Pupils are equal, round and regular, reactive to light and accommodation. Extraocular movements are normal. There is no scleral icterus. Conjunctivae without any pallor. ENT: Tympanic membranes are normal. Nares are patent. There is no redness of the oropharynx. There were exudates in the throat. NECK: Supple without any lymphadenopathy. There is no goiter. Carotids are equal without any bruit. There is no JVD. Trachea is central. LUNGS: Show a few scattered rhonchi noted. There is no dullness noted on percussion. There are no rales. No *------* on percussion. CHEST: Palpation of the chest does reproduce some mild chest pain on pressing on his sternum. It is the upper part of the sternum. ABDOMEN: Soft, nontender. There is no hepatosplenomegaly. Bowel sounds are normal. There is no guarding, rebound. There is no mass. EXTREMITIES: Pedal pulses are 1 to 2+. There is calf tenderness. There is no clubbing or cyanosis. There is trace pedal edema bilaterally. There is no cellulitis. CENTRAL NERVOUS SYSTEM: The patient is conscious, awake, alert and oriented x3 without any neurologic deficits, and he moves all 4 extremities. PSYCHIATRIC: The patient's judgment and insight are intact. His affect is normal. SKIN: Shows no rashes, petechiae, or ecchymosis. MUSCULOSKELETAL: No significant joint swelling. INTAKE/OUTPUT: The patient's 24 hour intake has been 1692 mL, output is 3870 mL. LABORATORY DATA: The patient's lab showed a glucose of 113 and 207. IMPRESSION: 1. LEFT LOWER LOBE PNEUMONIA, SEEMS TO BE GETTING BETTER. 2. CORONARY ARTERY DISEASE. THE PATIENT HAS NO ANGINA. HE HAS CHEST WALL PAIN. 3. ELEVATED TROPONIN I, THIS IS MOST LIKELY SECONDARY TO ACUTE RESPIRATORY FAILURE WITH HYPOXEMIA AND HYPERCAPNIA. NO DEFINITE EVIDENCE OF NON-ST ELEVATION NM. 4. DIABETES MELLITUS, TYPE 2 INSULIN REQUIRING. 5. HYPERTENSION. THE PATIENT'S HYPOTENSION HAS RESOLVED, BUT HIS BLOOD PRESSURE IS LOW NORMAL. 6. HYPERLIPIDEMIA. 7. ISCHEMIC CARDIOMYOPATHY. RECOMMENDATION: Continue the patient's aspirin and atorvastatin. He is on cephalexin orally 500 mg p.o. q.6 hours. He is on hypoglycemic precautions with dextrose and glucose gel. He is to continue his Lasix 40 mg, continue his gabapentin and glucagon for hypoglycemia, continue his insulin, continue lactulose, continue lisinopril, continue magnesium oxide. Would continue his current medications. Continue spironolactone. On 02/12/2017 the patient had a Lexiscan Cardiolite stress test which showed no reversible ischemia. There was a small area of myocardial infarction/*------* the LV apex and lateral wall. His LV function showed left ventricular systolic function is moderately reduced, it is 36%, there is normal left ventricular wall thickness. The left ventricle is mild to moderately dilated. There is trace amount of mitral regurgitation. There is no evidence of mitral valve prolapse. There is no aortic valvular vegetation. There is no aortic valve stenosis. There is no aortic regurgitation present. There is trace amount of tricuspid regurgitation. There is no pulmonic valvular regurgitation. There is no pericardial effusion. The test was done on 02/04/2017. 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 Terry, he will follow with him. The patient appears to be stable, we will sign off. Patient awaiting a bed placement. DICTATING PHYSICIAN: KARSON CASTILLO M.D. [id number] AMAN#: [id number] ID: [id number] JOB#: [id number] ACCT: [id number] cc: >
[2017-02-21] MEDS: ATORVASTATIN CALCIUM 80 MG TABLET PO SCH (21:46)
[2017-02-21] MEDS: LACTULOSE SYRUP 20 GM/30 ML UDCUP PO SCH (21:46)
[2017-02-22] MEDS: NYSTATIN CREAM 15 GM TP SCH ×2 (00:18→11:00)
[2017-02-22] MEDS: CEPHALEXIN 500 MG CAPSULE PO SCH ×3 (00:18→11:01)
[2017-02-22] MEDS: PHENAZOPYRIDINE HCL 100 MG TABLET PO SCH (05:27)
[2017-02-22] MEDS: LANSOPRAZOLE 15 MG TAB.RAP.DR PO SCH (05:28)
[2017-02-22] MEDS: GABAPENTIN 300 MG CAPSULE PO SCH ×3 (05:28→20:34)
[2017-02-22 05:43] LABS: HEMATOCRIT 34.3 % (37.9-51.0); HEMOGLOBIN 11.6 g/dL (13.5-17.0); MEAN CORPUSCULAR HEMOGLOBIN 32.6 pg (27.0-33.4); MEAN CORPUSCULAR HGB CONC 33.7 g/dL (32.0-36.0); MEAN CORPUSCULAR VOLUME 97 fl (80-97); PLATELET COUNT 257 10^3/uL (150-450); RED BLOOD COUNT 3.55 10^6/uL (4.35-5.55); RED CELL DISTRIBUTION WIDTH 14.7 % (11.5-14.0)
[2017-02-22] MEDS: THIAMINE HCL 100 MG TABLET NG SCH (10:58)
[2017-02-22] MEDS: MAGNESIUM OXIDE 400 MG TABLET PO SCH (10:58)
[2017-02-22] MEDS: TAMSULOSIN HCL 0.4 MG CAP.SR.24H PO SCH (10:58)
[2017-02-22] MEDS: ASPIRIN 81 MG TABLET, ENT COATED PO SCH (10:58)
[2017-02-22] MEDS: FOLIC ACID 1 MG TABLET NG SCH (10:58)
[2017-02-22] MEDS: GUAIFENESIN 600 MG TABLET.SA PO SCH ×2 (10:58→20:34)
[2017-02-22] MEDS: LISINOPRIL 5 MG TABLET PO SCH (10:59)
[2017-02-22] MEDS: FLUCONAZOLE 100 MG TABLET PO SCH (10:59)
[2017-02-22] MEDS: FUROSEMIDE 40 MG TABLET PO SCH (10:59)
[2017-02-22] MEDS: METOPROLOL SUCCINATE 25 MG TAB.SR.24H PO SCH (10:59)
[2017-02-22] MEDS: LACTOBACILLUS ACIDOPHILUS 250 MG TAB PO SCH ×2 (10:59→18:15)
[2017-02-22] MEDS: SPIRONOLACTONE 25 MG TABLET PO SCH (10:59)
[2017-02-22] MEDS: ENOXAPARIN SODIUM INJ 40 MG/0.4 ML DISP.SYRIN SUBCUT SCH (11:00)
[2017-02-22] MEDS: INSULIN GLARGINE,HUM.REC.ANLOG 300 UNIT/3 ML INSULN.PEN SUBCUT SCH (11:15)
[2017-02-22 12:21] LABS: APPEARANCE,URINE CLEAR; BILIRUBIN,URINE NEGATIVE (NEGATIVE); GLUCOSE, URINE NEGATIVE (NEGATIVE); KETONES,URINE NEGATIVE (NEGATIVE); LEUKOCYTE ESTERASE,URINE SMALL (NEGATIVE); NITRITE,URINE POSITIVE (NEGATIVE); PROTEIN,URINE NEGATIVE (NEGATIVE); URINE SPECIFIC GRAVITY 1.008
[2017-02-22 12:22] LABS: COLOR,URINE DARK YELLOW
[2017-02-22] MEDS ORDERED: AMOXICILLIN TR/POT CLAVULANATE 500-125 MG TAB PO SCH (14:00)
[2017-02-22] MEDS: DIGOXIN 0.125 MG TABLET PO SCH (14:42)
[2017-02-22] MEDS: AMPICILLIN SODIUM/SULBACTAM NA 3 GM in NORMAL SALINE 100 ML IV SCH (18:15)
[2017-02-22] MEDS: INSULIN LISPRO 100 UNIT/ML 3 ML VIAL SUBCUT PRN (18:16)
--- NOTE | 2017-02-22 19:28 | PDOC PROGRESS REPORT ---
Subjective Progress Note for:: 02/22/17 Subjective:: Patient is complaining of dysuria He has no fever no chills otherwise is feeling well His urine culture was positive for enterococcus Patient to urine was still positive for nitrite today We initiated treatment with Unasyn IV Reason For Visit: PNEUMONIA Physical Exam Vital Signs: Temp Pulse Resp BP Pulse Ox 97.5 F 83 18 87/55 L 100 02/22/17 16:07 02/22/17 16:07 02/22/17 16:07 02/22/17 16:07 02/22/17 16:07 Intake & Output 02/21/17 02/22/17 02/23/17 00:59 00:59 00:59 Intake Total 1478 1922 1073 Output Total 4220 3500 0283 Balance -8767 -0376 -5897 Weight 73.5 kg 70.5 kg 70.9 kg General appearance: PRESENT: no acute distress, disheveled Head exam: PRESENT: atraumatic, normocephalic Eye exam: PRESENT: conjunctiva pink, EOMI, PERRLA. ABSENT: scleral icterus Neck exam: ABSENT: carotid bruit, JVD, lymphadenopathy, thyromegaly Respiratory exam: PRESENT: rhonchi, wheezes. ABSENT: accessory muscle use Cardiovascular exam: PRESENT: RRR. ABSENT: diastolic murmur, rubs, systolic murmur Pulses: PRESENT: normal dorsalis pedis pul GI/Abdominal exam: PRESENT: normal bowel sounds, soft. ABSENT: distended, guarding, mass, organolmegaly, rebound, tenderness Extremities exam: PRESENT: full ROM. ABSENT: calf tenderness, clubbing, pedal edema Neurological exam: PRESENT: alert, awake, oriented to person, oriented to place , oriented to time, oriented to situation, CN II-XII grossly intact. ABSENT: motor sensory deficit Results Laboratory Results: 02/22/17 04:37 02/20/17 04:24 02/22/17 02/22/17 04:37 11:36 WBC 10.0 RBC 3.55 L Hgb 11.6 L Hct 34.3 L MCV 97 MCH 32.6 MCHC 33.7 RDW 14.7 H Plt Count 257 Urine Color DARK YELLOW Urine Appearance CLEAR Urine pH 6.0 Ur Specific Hodge 1.008 Urine Protein NEGATIVE Urine Glucose (UA) NEGATIVE Urine Ketones NEGATIVE Urine Blood NEGATIVE Urine Nitrite POSITIVE H Ur Leukocyte Esterase SMALL H Urine WBC (Auto) 49 Urine RBC (Auto) 1 02/02/17 02/03/17 02/04/17 21:45 03:50 01:42 Troponin I 0.030 0.066 0.043 NT-Pro-B Natriuret Pep 02/04/17 02/04/17 02/04/17 04:47 12:32 19:25 Troponin I 0.447 1.640 1.740 NT-Pro-B Natriuret Pep 02/05/17 02/06/17 02/20/17 01:21 03:55 04:24 Troponin I 1.360 0.574 NT-Pro-B Natriuret Pep 1810 H Impressions: Chest/Abdomen CTA 02/04/17 00:00 IMPRESSION: 1. There is no evidence of pulmonary emboli. 2. Small a moderate bilateral pleural effusions. 3. Left lower lobe pneumonia versus atelectasis. Chest X-Ray 02/16/17 00:00 IMPRESSION: NO SIGNIFICANT RADIOGRAPHIC FINDING IN THE CHEST. Prior changes resolved. Assessment & Plan - Diagnosis (1) Cardiomyopathy Qualifiers: Cardiomyopathy type: unspecified Qualified Code(s): I42.9 - Cardiomyopathy , unspecified Is this a current diagnosis for this admission?: Yes (2) Chronic systolic CHF (congestive heart failure), NYHA class 3 Is this a current diagnosis for this admission?: Yes (3) Coronary artery disease Qualifiers: Coronary Disease-Associated Artery/Lesion type: [place] artery [place] vs. transplanted heart: [place] heart Associated angina: angina presence unspecified Qualified Code(s): I25.10 - Atherosclerotic heart disease of [place] coronary artery without angina pectoris Is this a current diagnosis for this admission?: Yes (4) NSTEMI (non-ST elevated myocardial infarction) Is this a current diagnosis for this admission?: Yes (5) Protein calorie malnutrition Is this a current diagnosis for this admission?: Yes (6) Hemoptysis Is this a current diagnosis for this admission?: Yes (7) Pneumonia Qualifiers: Pneumonia type: due to unspecified organism Laterality: right Lung location: lower lobe of lung Qualified Code(s): J18.1 - Lobar pneumonia, unspecified organism Is this a current diagnosis for this admission?: Yes (8) UTI (urinary tract infection) Qualifiers: Indwelling urinary catheter type: unspecified Encounter type: initial encounter Is this a current diagnosis for this admission?: Yes Plan: Culture showed enterococcus and yeast Treat with fluconazole and Unasyn - Plan Summary Plan Summary: Patient is [facility]
[2017-02-22] MEDS: ATORVASTATIN CALCIUM 80 MG TABLET PO SCH (20:34)
[2017-02-22] MEDS: LACTULOSE SYRUP 20 GM/30 ML UDCUP PO SCH (20:35)
[2017-02-22] MEDS: PHENAZOPYRIDINE HCL 200 MG TABLET PO SCH (20:35)
--- NOTE | 2017-02-22 23:28 | PROGRESS NOTE E ---
Progress Note NAME: TAMMY RICHARDS : 1955 AGE: 61Y DATE: 02/22/2017 ROOM: 308 SUBJECTIVE: Note the patient states that he has chest wall pain off and on, but no real anginal symptoms. He has no PND, orthopnea. He has trace leg edema. There is no ventricular arrhythmias or atrial arrhythmias. The rest of review of symptoms is negative. MEDICATIONS: Note that the patient's medications have been reviewed. OBJECTIVE: VITAL SIGNS: On examination the patient is afebrile with a temperature of 97.8 degrees Fahrenheit, pulse is 79 beats per minute, blood pressure 107/57, respirations are 18 per minute, O2 saturations are 99% on room air. HEENT: Head is atraumatic, normocephalic. Eyes: Pupils are equal, round and regular, reactive to light and accommodation. Extraocular movements are normal. There is no scleral icterus. Conjunctivae is without any pallor. ENT: Tympanic membranes are normal. Nares are patent. There is no redness of the oropharynx. There are exudates in the throat. NECK: Supple without any lymphadenopathy. There is no goiter. Carotids are equal without any bruit. There is no JVD. Trachea is central. LUNGS: Show that the lungs are pretty clear. There is no dullness. There are no rhonchi or rales. There is no dullness on percussion. CHEST: Palpation of the chest today does not produce any chest pain. S1, S2 is heard. There is no S3 gallop. There is no S4 gallop. There is a systolic murmur in the left sternal border and the apex. ABDOMEN: Soft, nontender. There is no hepatosplenomegaly. Bowel sounds are well-heard. There is no guarding or rebound. There is no hepatosplenomegaly. There is no mass. EXTREMITIES: Pedal pulses are 1 to 2+. Femorals are diminished. There are no femoral bruits. There is calf tenderness. There is no clubbing or cyanosis. There is trace pedal edema bilaterally. There is no cellulitis. There is some minor chronic venous stasis dermatitis changes present. CENTRAL NERVOUS SYSTEM: The patient is conscious, awake, alert and oriented x3 with no focal deficits. PSYCHIATRIC: The patient's judgment and insight are intact. His affect is normal. LABORATORY DATA: The patient's white count is 10,000; hemoglobin is 11.6; hematocrit is 34.3; platelet count is 257,000. The patient's blood glucose is 118. IMPRESSION: 1. LEFT LOWER LOBE PNEUMONIA, SEEMS TO BE RESOLVING. 2. CORONARY ARTERY DISEASE. THE PATIENT HAS NO ANGINA. HE HAS CHEST WALL PAIN OFF AND ON. 3. ELEVATED TROPONIN I, THIS IS MOST LIKELY SECONDARY TO ACUTE RESPIRATORY FAILURE WITH HYPOXEMIA AND HYPERCAPNIA. THERE IS NO DEFINITE EVIDENCE OF NON-ST ELEVATION [place]. 4. DIABETES MELLITUS, TYPE 2 INSULIN REQUIRING. 5. HYPOTENSION. THIS HAS RESOLVED. HIS BLOOD PRESSURE IS LOW NORMAL. 6. HYPERLIPIDEMIA. 7. ISCHEMIC CARDIOMYOPATHY. RECOMMENDATION: Continue the patient's aspirin and atorvastatin, continue antibiotics. Continue his antidiabetic medications. Continue spironolactone. Continue his Lasix, gabapentin, and glucagon for hypoglycemia. Continue insulin. Continue his lactulose. Continue his lisinopril. Continue magnesium oxide. We will continue his current medications. Note that the patient is on ampicillin 3 grams IV q.6 hours. Continue his metoprolol (Toprol XL) 25 mg p.o. daily. ADDENDUM: Note that the patient was complaining of dysuria, positive for urinary tract infection and hence he has been placed on different antibiotics. The patient is anticipated to go to a [place] [facility] facility soon. Hence, cardiac condition is stable at present, we will sign off the case. Thank you for allowing me to participate in this case. TIME SPENT: Note 25 minutes spent on this case with more than 50% of the time spent on direct patient care. His medications have been reviewed and discussed with the attending physician taking care of the patient. Medical decision making is of moderate complexity. Since the patient will be going to a correction soon we will sign off the case. DICTATING PHYSICIAN: KARSON CASTILLO M.D. [id number] AMAN#: [id number] ID: [id number] JOB#: [id number] ACCT: [id number] cc: >
[2017-02-23] MEDS: AMPICILLIN SODIUM/SULBACTAM NA 3 GM in NORMAL SALINE 100 ML IV SCH ×5 (00:13→23:11)
[2017-02-23] MEDS: PHENAZOPYRIDINE HCL 200 MG TABLET PO SCH ×3 (05:46→23:11)
[2017-02-23] MEDS: LANSOPRAZOLE 15 MG TAB.RAP.DR PO SCH (05:46)
[2017-02-23] MEDS: GABAPENTIN 300 MG CAPSULE PO SCH ×3 (05:47→23:10)
--- NOTE | 2017-02-23 09:30 | PDOC PROGRESS REPORT ---
Subjective Progress Note for:: 02/23/17 Subjective:: Patient is a 61 year old male who presented with ED with symptoms consistent with pneumonia and hypoxic respiratory failure. Patient was encephalopathic at that time. Patient was being treated with antibiotics and oxygen however decompenstated and required intubation. CT was negative for PE. Antibiotic coverage was broadened. Patient suffered an NSTEMI and was treated medically. Cardiology was consulted. Patient was extubated. Stress test demonstrated no ischemic but he did have a depressed EF. Echo shows EF of 36%. Patient does have history of CAD s/p stent. Patient was being management medically. Enteresto discontinued due to hypotension. Patent restarted on lasix. Patient complaining of dyuria. Patient currently on unasyn for entercoccus UTI. Patient is doing better today. Reason For Visit: PNEUMONIA Physical Exam Vital Signs: Temp Pulse Resp BP Pulse Ox 97.4 F 80 15 111/67 98 02/23/17 07:45 02/23/17 07:45 02/23/17 07:45 02/23/17 07:45 02/23/17 07:45 Intake & Output 02/22/17 02/23/17 02/24/17 06:59 06:59 06:59 Intake Total 1703 1907 Output Total 3200 3900 Balance -1496 Weight 70.9 kg 68.9 kg General appearance: PRESENT: no acute distress, well-developed, well-nourished Head exam: PRESENT: atraumatic, normocephalic Eye exam: PRESENT: conjunctiva pink, EOMI, PERRLA. ABSENT: scleral icterus Ear exam: PRESENT: normal external ear exam Mouth exam: PRESENT: moist, tongue midline Neck exam: ABSENT: carotid bruit, JVD, lymphadenopathy, thyromegaly Respiratory exam: PRESENT: clear to auscultation vangie. ABSENT: rales, rhonchi, wheezes Cardiovascular exam: PRESENT: RRR. ABSENT: diastolic murmur, rubs, systolic murmur Pulses: PRESENT: normal dorsalis pedis pul Vascular exam: PRESENT: normal capillary refill GI/Abdominal exam: PRESENT: normal bowel sounds, soft. ABSENT: distended, guarding, mass, organolmegaly, rebound, tenderness Rectal exam: PRESENT: deferred Extremities exam: PRESENT: full ROM. ABSENT: calf tenderness, clubbing, pedal edema Neurological exam: PRESENT: alert, awake, oriented to person, oriented to place , oriented to time, oriented to situation, CN II-XII grossly intact. ABSENT: motor sensory deficit Psychiatric exam: PRESENT: appropriate affect, normal mood. ABSENT: homicidal ideation, suicidal ideation Skin exam: PRESENT: dry, intact, warm. ABSENT: cyanosis, rash Results Laboratory Results: 02/22/17 04:37 02/20/17 04:24 02/22/17 11:36 Urine Color DARK YELLOW Urine Appearance CLEAR Urine pH 6.0 Ur Specific [place] 1.008 Urine Protein NEGATIVE Urine Glucose (UA) NEGATIVE Urine Ketones NEGATIVE Urine Blood NEGATIVE Urine Nitrite POSITIVE H Ur Leukocyte Esterase SMALL H Urine WBC (Auto) 49 Urine RBC (Auto) 1 02/02/17 02/03/17 02/04/17 21:45 03:50 01:42 Troponin I 0.030 0.066 0.043 NT-Pro-B Natriuret Pep 02/04/17 02/04/17 02/04/17 04:47 12:32 19:25 Troponin I 0.447 1.640 1.740 NT-Pro-B Natriuret Pep 02/05/17 02/06/17 02/20/17 01:21 03:55 04:24 Troponin I 1.360 0.574 NT-Pro-B Natriuret Pep 1810 H Impressions: Chest/Abdomen CTA 02/04/17 00:00 IMPRESSION: 1. There is no evidence of pulmonary emboli. 2. Small a moderate bilateral pleural effusions. 3. Left lower lobe pneumonia versus atelectasis. Chest X-Ray 02/16/17 00:00 IMPRESSION: NO SIGNIFICANT RADIOGRAPHIC FINDING IN THE CHEST. Prior changes resolved. Assessment & Plan - Diagnosis (1) UTI (urinary tract infection) due to Enterococcus Is this a current diagnosis for this admission?: Yes Plan: Patient was being treated wit keflex for enterococcus UTI however he was not improving. Patient now improving on unasyn. Will treat x 7 days. (2) Cardiomyopathy Qualifiers: Cardiomyopathy type: unspecified Qualified Code(s): I42.9 - Cardiomyopathy , unspecified Is this a current diagnosis for this admission?: Yes Plan: Stable. Continue medical management with metoprolol, lasix, lisinopril and spironolactone. (3) Chronic systolic CHF (congestive heart failure), NYHA class 3 Is this a current diagnosis for this admission?: Yes Plan: Compensated. Continue management as stated above in cardiomyopathy. (4) Coronary artery disease Qualifiers: Coronary Disease-Associated Artery/Lesion type: [place] artery [place] vs. transplanted heart: [place] heart Associated angina: angina presence unspecified Qualified Code(s): I25.10 - Atherosclerotic heart disease of [place] coronary artery without angina pectoris Is this a current diagnosis for this admission?: Yes Plan: Stable. Continue metoprolol, aspirin and statin. (5) Hemoptysis Is this a current diagnosis for this admission?: Yes Plan: Resolved. Thought to be due to pulmonary edema. (6) NSTEMI (non-ST elevated myocardial infarction) Is this a current diagnosis for this admission?: Yes (7) Pneumonia Qualifiers: Pneumonia type: due to unspecified organism Laterality: right Lung location: lower lobe of lung Qualified Code(s): J18.1 - Lobar pneumonia, unspecified organism Is this a current diagnosis for this admission?: Yes Plan: Treated on admission. (8) Protein calorie malnutrition Is this a current diagnosis for this admission?: Yes Plan: Patient now eating 100 percent of his meals. This may be resulting from being homeless. (9) Type 2 diabetes mellitus Qualifiers: Diabetes mellitus snf insulin use: with snf use Is this a current diagnosis for this admission?: Yes Plan: A1c 6.4. Blood glucoses in the 100s. Continue current management. - Time Time Spent with patient: Less than 15 minutes Anticipated discharge: SNF - Inpatient Certification Medical Necessity: Need for IV Antibiotics - Patient homeless and awating placement.
[2017-02-23] MEDS: SPIRONOLACTONE 25 MG TABLET PO SCH (10:17)
[2017-02-23] MEDS: GUAIFENESIN 600 MG TABLET.SA PO SCH ×2 (10:17→23:10)
[2017-02-23] MEDS: FLUCONAZOLE 100 MG TABLET PO SCH (10:17)
[2017-02-23] MEDS: LACTOBACILLUS ACIDOPHILUS 250 MG TAB PO SCH ×2 (10:18→17:40)
[2017-02-23] MEDS: METOPROLOL SUCCINATE 25 MG TAB.SR.24H PO SCH (10:18)
[2017-02-23] MEDS: MAGNESIUM OXIDE 400 MG TABLET PO SCH (10:18)
[2017-02-23] MEDS: FUROSEMIDE 40 MG TABLET PO SCH (10:18)
[2017-02-23] MEDS: TAMSULOSIN HCL 0.4 MG CAP.SR.24H PO SCH (10:18)
[2017-02-23] MEDS: THIAMINE HCL 100 MG TABLET NG SCH (10:18)
[2017-02-23] MEDS: FOLIC ACID 1 MG TABLET NG SCH (10:18)
[2017-02-23] MEDS: ASPIRIN 81 MG TABLET, ENT COATED PO SCH (10:19)
[2017-02-23] MEDS: LISINOPRIL 5 MG TABLET PO SCH (10:19)
[2017-02-23] MEDS: ENOXAPARIN SODIUM INJ 40 MG/0.4 ML DISP.SYRIN SUBCUT SCH (10:19)
[2017-02-23] MEDS: DIGOXIN 0.125 MG TABLET PO SCH (13:33)
[2017-02-23] MEDS: INSULIN GLARGINE,HUM.REC.ANLOG 300 UNIT/3 ML INSULN.PEN SUBCUT SCH (13:34)
[2017-02-23] MEDS: INSULIN LISPRO 100 UNIT/ML 3 ML VIAL SUBCUT PRN (13:35)
[2017-02-23] MEDS: ATORVASTATIN CALCIUM 80 MG TABLET PO SCH (23:10)
[2017-02-23] MEDS: LACTULOSE SYRUP 20 GM/30 ML UDCUP PO SCH (23:10)
[2017-02-24] MEDS: PHENAZOPYRIDINE HCL 200 MG TABLET PO SCH ×3 (05:25→23:38)
[2017-02-24] MEDS: LANSOPRAZOLE 15 MG TAB.RAP.DR PO SCH (05:25)
[2017-02-24] MEDS: GABAPENTIN 300 MG CAPSULE PO SCH ×3 (05:25→23:39)
[2017-02-24] MEDS: AMPICILLIN SODIUM/SULBACTAM NA 3 GM in NORMAL SALINE 100 ML IV SCH ×4 (05:25→23:39)
[2017-02-24 05:49] LABS: ABSOLUTE BASOPHILS # (AUTO) 0.1 10^3/uL (0.0-0.2); ABSOLUTE EOSINOPHILS # (AUTO) 0.1 10^3/uL (0.0-0.6); ABSOLUTE LYMPHOCYTES (AUTO) 2.5 10^3/uL (0.5-4.7); ABSOLUTE MONOCYTES (AUTO) 0.8 10^3/uL (0.1-1.4); ABSOLUTE NEUT (AUTO) 5.5 10^3/uL (1.7-8.2); HEMATOCRIT 32.4 % (37.9-51.0); HEMOGLOBIN 11.1 g/dL (13.5-17.0); LYMPHOCYTES % (AUTO) 28.1 % (13-45); MEAN CORPUSCULAR HEMOGLOBIN 32.7 pg (27.0-33.4); MEAN CORPUSCULAR HGB CONC 34.3 g/dL (32.0-36.0); MEAN CORPUSCULAR VOLUME 95 fl (80-97); MONOCYTES % (AUTO) 8.8 % (3-13); PLATELET COUNT 276 10^3/uL (150-450); RED CELL DISTRIBUTION WIDTH 14.8 % (11.5-14.0); SEGMENTED NEUTROPHILS % (AUTO) 61.1 % (42-78); TOTAL CELLS COUNTED % (AUTO) 100 %
[2017-02-24 06:34] LABS: ANION GAP 10 (5-19); BLOOD UREA NITROGEN 28 mg/dL (7-20); CALCIUM 8.8 mg/dL (8.4-10.2); CARBON DIOXIDE 25 mmol/L (22-30); CHLORIDE 100 mmol/L (98-107); GLUCOSE 103 mg/dL (75-110); MAGNESIUM 1.9 mg/dL (1.6-2.3); POTASSIUM 4.8 mmol/L (3.6-5.0); SODIUM 134.5 mmol/L (137-145)
[2017-02-24] MEDS: METOPROLOL SUCCINATE 25 MG TAB.SR.24H PO SCH (09:28)
[2017-02-24] MEDS: TAMSULOSIN HCL 0.4 MG CAP.SR.24H PO SCH (09:28)
[2017-02-24] MEDS: FLUCONAZOLE 100 MG TABLET PO SCH (09:28)
[2017-02-24] MEDS: GUAIFENESIN 600 MG TABLET.SA PO SCH ×2 (09:29→23:39)
[2017-02-24] MEDS: ASPIRIN 81 MG TABLET, ENT COATED PO SCH (09:29)
[2017-02-24] MEDS: MAGNESIUM OXIDE 400 MG TABLET PO SCH (09:29)
[2017-02-24] MEDS: THIAMINE HCL 100 MG TABLET NG SCH (09:29)
[2017-02-24] MEDS: LACTOBACILLUS ACIDOPHILUS 250 MG TAB PO SCH ×2 (09:29→18:25)
[2017-02-24] MEDS: SPIRONOLACTONE 25 MG TABLET PO SCH (09:30)
[2017-02-24] MEDS: FUROSEMIDE 40 MG TABLET PO SCH (09:30)
[2017-02-24] MEDS: ENOXAPARIN SODIUM INJ 40 MG/0.4 ML DISP.SYRIN SUBCUT SCH (09:30)
[2017-02-24] MEDS: FOLIC ACID 1 MG TABLET NG SCH (09:30)
[2017-02-24] MEDS: LISINOPRIL 5 MG TABLET PO SCH (12:41)
[2017-02-24] MEDS: DIGOXIN 0.125 MG TABLET PO SCH (13:27)
[2017-02-24] MEDS: INSULIN GLARGINE,HUM.REC.ANLOG 300 UNIT/3 ML INSULN.PEN SUBCUT SCH (13:30)
[2017-02-24] MEDS: LACTULOSE SYRUP 20 GM/30 ML UDCUP PO SCH (23:38)
[2017-02-24] MEDS: METOPROLOL TARTRATE 25 MG TABLET PO SCH (23:39)
[2017-02-24] MEDS: ATORVASTATIN CALCIUM 80 MG TABLET PO SCH (23:39)
[2017-02-25 05:16] LABS: HEMATOCRIT 33.8 % (37.9-51.0); HEMOGLOBIN 11.5 g/dL (13.5-17.0); MEAN CORPUSCULAR HEMOGLOBIN 32.4 pg (27.0-33.4); MEAN CORPUSCULAR HGB CONC 33.9 g/dL (32.0-36.0); MEAN CORPUSCULAR VOLUME 96 fl (80-97); PLATELET COUNT 288 10^3/uL (150-450); RED BLOOD COUNT 3.54 10^6/uL (4.35-5.55); RED CELL DISTRIBUTION WIDTH 14.8 % (11.5-14.0); WHITE BLOOD COUNT 8.6 10^3/uL (4.0-10.5)
[2017-02-25] MEDS: AMPICILLIN SODIUM/SULBACTAM NA 3 GM in NORMAL SALINE 100 ML IV SCH (06:05)
[2017-02-25] MEDS: PHENAZOPYRIDINE HCL 200 MG TABLET PO SCH (06:05)
[2017-02-25] MEDS: GABAPENTIN 300 MG CAPSULE PO SCH ×3 (06:05→22:19)
[2017-02-25] MEDS: LANSOPRAZOLE 15 MG TAB.RAP.DR PO SCH (06:05)
[2017-02-25] MEDS: GUAIFENESIN 600 MG TABLET.SA PO SCH ×2 (11:07→22:19)
[2017-02-25] MEDS: FLUCONAZOLE 100 MG TABLET PO SCH (11:07)
[2017-02-25] MEDS: THIAMINE HCL 100 MG TABLET NG SCH (11:08)
[2017-02-25] MEDS: ASPIRIN 81 MG TABLET, ENT COATED PO SCH (11:08)
[2017-02-25] MEDS: MAGNESIUM OXIDE 400 MG TABLET PO SCH (11:08)
[2017-02-25] MEDS: SPIRONOLACTONE 25 MG TABLET PO SCH (11:08)
[2017-02-25] MEDS: TAMSULOSIN HCL 0.4 MG CAP.SR.24H PO SCH (11:08)
[2017-02-25] MEDS: ENOXAPARIN SODIUM INJ 40 MG/0.4 ML DISP.SYRIN SUBCUT SCH (11:09)
[2017-02-25] MEDS: FOLIC ACID 1 MG TABLET NG SCH (11:09)
[2017-02-25] MEDS: LACTOBACILLUS ACIDOPHILUS 250 MG TAB PO SCH ×2 (11:09→17:20)
[2017-02-25] MEDS: FUROSEMIDE 40 MG TABLET PO SCH (11:09)
[2017-02-25] MEDS: INSULIN GLARGINE,HUM.REC.ANLOG 300 UNIT/3 ML INSULN.PEN SUBCUT SCH (11:10)
[2017-02-25] MEDS: LISINOPRIL 5 MG TABLET PO SCH (11:11)
[2017-02-25] MEDS: METOPROLOL TARTRATE 25 MG TABLET PO SCH ×2 (11:11→22:19)
[2017-02-25] MEDS ORDERED: LEVALBUTEROL HCL NEB 1.25 MG/3 ML AMPUL NEB PRN (11:30)
[2017-02-25 13:32] LABS: APPEARANCE,URINE CLEAR; BILIRUBIN,URINE NEGATIVE (NEGATIVE); COLOR,URINE AMBER; GLUCOSE, URINE NEGATIVE (NEGATIVE); KETONES,URINE NEGATIVE (NEGATIVE); LEUKOCYTE ESTERASE,URINE SMALL (NEGATIVE); NITRITE,URINE POSITIVE (NEGATIVE); PROTEIN,URINE NEGATIVE (NEGATIVE); URINE SPECIFIC GRAVITY 1.011
[2017-02-25] MEDS: AMPICILLIN TRIHYD 500 MG CAPSULE PO SCH ×2 (14:11→22:19)
[2017-02-25] MEDS: DIGOXIN 0.125 MG TABLET PO SCH (14:13)
--- NOTE | 2017-02-25 15:54 | PDOC PROGRESS REPORT ---
Subjective Progress Note for:: 02/24/17 Subjective:: Patient is a 61 year old male who presented with ED with symptoms consistent with pneumonia and hypoxic respiratory failure. Patient was encephalopathic at that time. Patient was being treated with antibiotics and oxygen however decompenstated and required intubation. CT was negative for PE. Antibiotic coverage was broadened. Patient suffered an NSTEMI and was treated medically. Cardiology was consulted. Patient was extubated. Stress test demonstrated no ischemic but he did have a depressed EF. Echo shows EF of 36%. Patient does have history of CAD s/p stent. Patient was being management medically. Enteresto discontinued due to hypotension. Still complaining of dysuria. Patient states it started after his Fisher was discontinued. Patient's evidence of hypertension. Patient blood pressure medications will be adjusted. Despite being hypotensive patient is not symptomatic. Reason For Visit: PNEUMONIA Physical Exam Vital Signs: Selected Entries 02/24/17 11:57 Temperature 98.3 F Temperature Oral Source Pulse Rate 85 Respiratory 18 Rate Blood Pressure 109/49 L Blood Pressure 69 Mean BP Location Left Arm BP Position Supine O2 Sat by Pulse 91 L Oximetry Oxygen Delivery Room Air Method General appearance: PRESENT: no acute distress, well-developed, well-nourished Head exam: PRESENT: atraumatic, normocephalic Eye exam: PRESENT: conjunctiva pink, EOMI, PERRLA. ABSENT: scleral icterus Ear exam: PRESENT: normal external ear exam Mouth exam: PRESENT: moist, tongue midline Neck exam: ABSENT: carotid bruit, JVD, lymphadenopathy, thyromegaly Respiratory exam: PRESENT: clear to auscultation vangie. ABSENT: rales, rhonchi, wheezes Cardiovascular exam: PRESENT: RRR. ABSENT: diastolic murmur, rubs, systolic murmur Pulses: PRESENT: normal dorsalis pedis pul Vascular exam: PRESENT: normal capillary refill GI/Abdominal exam: PRESENT: normal bowel sounds, soft. ABSENT: distended, guarding, mass, organolmegaly, rebound, tenderness Rectal exam: PRESENT: deferred Extremities exam: PRESENT: full ROM. ABSENT: calf tenderness, clubbing, pedal edema Neurological exam: PRESENT: alert, awake, oriented to person, oriented to place , oriented to time, oriented to situation, CN II-XII grossly intact. ABSENT: motor sensory deficit Psychiatric exam: PRESENT: appropriate affect, normal mood. ABSENT: homicidal ideation, suicidal ideation Skin exam: PRESENT: dry, intact, warm. ABSENT: cyanosis, rash Results Laboratory Results: 02/25/17 04:38 02/24/17 05:34 02/24/17 02/25/17 02/25/17 19:39 04:38 12:58 WBC 8.6 RBC 3.54 L Hgb 11.5 L Hct 33.8 L MCV 96 MCH 32.4 MCHC 33.9 RDW 14.8 H Plt Count 288 Urine Color MYRIAM Urine Appearance CLEAR Urine pH 6.0 Ur Specific [place] 1.011 Urine Protein NEGATIVE Urine Glucose (UA) NEGATIVE Urine Ketones NEGATIVE Urine Blood NEGATIVE Urine Nitrite POSITIVE H Ur Leukocyte Esterase SMALL H Urine WBC (Auto) 32 Urine RBC (Auto) 1 Stool Occult Blood NEGATIVE 02/02/17 02/03/17 02/04/17 21:45 03:50 01:42 Troponin I 0.030 0.066 0.043 NT-Pro-B Natriuret Pep 02/04/17 02/04/17 02/04/17 04:47 12:32 19:25 Troponin I 0.447 1.640 1.740 NT-Pro-B Natriuret Pep 02/05/17 02/06/17 02/20/17 01:21 03:55 04:24 Troponin I 1.360 0.574 NT-Pro-B Natriuret Pep 1810 H Impressions: Chest/Abdomen CTA 02/04/17 00:00 IMPRESSION: 1. There is no evidence of pulmonary emboli. 2. Small a moderate bilateral pleural effusions. 3. Left lower lobe pneumonia versus atelectasis. Chest X-Ray 02/16/17 00:00 IMPRESSION: NO SIGNIFICANT RADIOGRAPHIC FINDING IN THE CHEST. Prior changes resolved. Assessment & Plan - Diagnosis (1) UTI (urinary tract infection) due to Enterococcus Is this a current diagnosis for this admission?: Yes Plan: Patient was being treated wit keflex for enterococcus UTI however he was not improving. Sure patient is improving as he continues to complain of dysuria. Concerned that there may be trauma to the penis following insertion and removal of Fisher catheter. (2) Cardiomyopathy Qualifiers: Cardiomyopathy type: unspecified Qualified Code(s): I42.9 - Cardiomyopathy , unspecified Is this a current diagnosis for this admission?: Yes Plan: Stable. Continue medical management with metoprolol, lasix, lisinopril and spironolactone. (3) Chronic systolic CHF (congestive heart failure), NYHA class 3 Is this a current diagnosis for this admission?: Yes Plan: Compensated. Continue management as stated above in cardiomyopathy. (4) Coronary artery disease Qualifiers: Coronary Disease-Associated Artery/Lesion type: [place] artery [place] vs. transplanted heart: [place] heart Associated angina: angina presence unspecified Qualified Code(s): I25.10 - Atherosclerotic heart disease of [place] coronary artery without angina pectoris Is this a current diagnosis for this admission?: Yes Plan: Stable. Continue metoprolol, aspirin and statin. (5) Hemoptysis Is this a current diagnosis for this admission?: Yes Plan: Resolved. Probably due to pulmonary edema. (6) NSTEMI (non-ST elevated myocardial infarction) Is this a current diagnosis for this admission?: Yes Plan: [place] medical management. Patient is on aspirin, statin and beta-leslie. (7) Pneumonia Qualifiers: Pneumonia type: due to unspecified organism Laterality: right Lung location: lower lobe of lung Qualified Code(s): J18.1 - Lobar pneumonia, unspecified organism Is this a current diagnosis for this admission?: Yes Plan: Treated on admission. (8) Protein calorie malnutrition Is this a current diagnosis for this admission?: Yes Plan: Patient now eating 100 percent of his meals. This may have been due to patient being homeless. 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 Continue current management. - Time Time Spent with patient: Less than 15 minutes Anticipated discharge: SNF - Inpatient Certification Medical Necessity: Need for IV Antibiotics
--- NOTE | 2017-02-25 16:06 | PDOC PROGRESS REPORT ---
Subjective Progress Note for:: 02/25/17 Subjective:: Patient is a 61 year old male who presented with ED with symptoms consistent with pneumonia and hypoxic respiratory failure. Patient was encephalopathic at that time. Patient was being treated with antibiotics and oxygen however decompenstated and required intubation. CT was negative for PE. Antibiotic coverage was broadened. Patient suffered an NSTEMI and was treated medically. Cardiology was consulted. Patient was extubated. Stress test demonstrated no ischemic but he did have a depressed EF. Echo shows EF of 36%. Patient does have history of CAD s/p stent. Patient was being management medically. Enteresto discontinued due to hypotension. Avoiding all the time of likely due to being on diuretics however concerned that patient may have BPH resulting in inadequate emptying of his bladder. He is otherwise doing well. Reason For Visit: PNEUMONIA Physical Exam Vital Signs: Temp Pulse Resp BP Pulse Ox 98.3 F 79 20 101/59 L 97 02/25/17 04:04 02/25/17 04:04 02/25/17 04:04 02/25/17 04:04 02/25/17 04:04 Intake & Output 02/24/17 02/25/17 02/26/17 06:59 06:59 06:59 Intake Total 2052 1463 Output Total 2425 900 Balance -373 563 Weight 74.1 kg General appearance: PRESENT: no acute distress, well-developed, well-nourished Head exam: PRESENT: atraumatic, normocephalic Eye exam: PRESENT: conjunctiva pink, EOMI, PERRLA. ABSENT: scleral icterus Ear exam: PRESENT: normal external ear exam Mouth exam: PRESENT: moist, tongue midline Neck exam: ABSENT: carotid bruit, JVD, lymphadenopathy, thyromegaly Respiratory exam: PRESENT: clear to auscultation vangie. ABSENT: rales, rhonchi, wheezes Cardiovascular exam: PRESENT: RRR. ABSENT: diastolic murmur, rubs, systolic murmur Pulses: PRESENT: normal dorsalis pedis pul Vascular exam: PRESENT: normal capillary refill GI/Abdominal exam: PRESENT: normal bowel sounds, soft. ABSENT: distended, guarding, mass, organolmegaly, rebound, tenderness Rectal exam: PRESENT: deferred Extremities exam: PRESENT: full ROM. ABSENT: calf tenderness, clubbing, pedal edema Neurological exam: PRESENT: alert, awake, oriented to person, oriented to place , oriented to time, oriented to situation, CN II-XII grossly intact. ABSENT: motor sensory deficit Psychiatric exam: PRESENT: appropriate affect, normal mood. ABSENT: homicidal ideation, suicidal ideation Skin exam: PRESENT: dry, intact, warm. ABSENT: cyanosis, rash Results Laboratory Results: 02/25/17 04:38 02/24/17 05:34 02/24/17 02/25/17 02/25/17 19:39 04:38 12:58 WBC 8.6 RBC 3.54 L Hgb 11.5 L Hct 33.8 L MCV 96 MCH 32.4 MCHC 33.9 RDW 14.8 H Plt Count 288 Urine Color MYRIAM Urine Appearance CLEAR Urine pH 6.0 Ur Specific [place] 1.011 Urine Protein NEGATIVE Urine Glucose (UA) NEGATIVE Urine Ketones NEGATIVE Urine Blood NEGATIVE Urine Nitrite POSITIVE H Ur Leukocyte Esterase SMALL H Urine WBC (Auto) 32 Urine RBC (Auto) 1 Stool Occult Blood NEGATIVE 02/02/17 02/03/17 02/04/17 21:45 03:50 01:42 Troponin I 0.030 0.066 0.043 NT-Pro-B Natriuret Pep 02/04/17 02/04/17 02/04/17 04:47 12:32 19:25 Troponin I 0.447 1.640 1.740 NT-Pro-B Natriuret Pep 02/05/17 02/06/17 02/20/17 01:21 03:55 04:24 Troponin I 1.360 0.574 NT-Pro-B Natriuret Pep 1810 H Impressions: Chest/Abdomen CTA 02/04/17 00:00 IMPRESSION: 1. There is no evidence of pulmonary emboli. 2. Small a moderate bilateral pleural effusions. 3. Left lower lobe pneumonia versus atelectasis. Chest X-Ray 02/16/17 00:00 IMPRESSION: NO SIGNIFICANT RADIOGRAPHIC FINDING IN THE CHEST. Prior changes resolved. Assessment & Plan - Diagnosis (1) UTI (urinary tract infection) due to Enterococcus Is this a current diagnosis for this admission?: Yes Plan: Patient was being treated wit keflex for enterococcus UTI however he was not improving. Sure patient is improving as he continues to complain of dysuria. Concerned that there may be trauma to the penis following insertion and removal of Fisher catheter however too much has passed. Concerned for other etiology. Possible prostatitis? Will do a US of bladder in hopes to see prostate. Patient will need ANATOLY which will be completed in the am. (2) Cardiomyopathy Qualifiers: Cardiomyopathy type: unspecified Qualified Code(s): I42.9 - Cardiomyopathy , unspecified Is this a current diagnosis for this admission?: Yes Plan: Stable. Continue medical management with metoprolol, lasix, lisinopril and spironolactone. Patient dosages have been decreased as he was developing hypotension. (3) Chronic systolic CHF (congestive heart failure), NYHA class 3 Is this a current diagnosis for this admission?: Yes Plan: Compensated. Continue management as stated above in cardiomyopathy. Patient to beta-leslie, diuretics and ACEI and is also on digoxin. (4) Coronary artery disease Qualifiers: Coronary Disease-Associated Artery/Lesion type: [place] artery [place] vs. transplanted heart: [place] heart Associated angina: angina presence unspecified Qualified Code(s): I25.10 - Atherosclerotic heart disease of [place] coronary artery without angina pectoris Is this a current diagnosis for this admission?: Yes Plan: Stable. Continue metoprolol, aspirin and statin. (5) Hemoptysis Is this a current diagnosis for this admission?: Yes Plan: Resolved. Probably due to pulmonary edema. (6) NSTEMI (non-ST elevated myocardial infarction) Is this a current diagnosis for this admission?: Yes Plan: Continue medical management. Patient is on aspirin, statin and beta-leslie. (7) Pneumonia Qualifiers: Pneumonia type: due to unspecified organism Laterality: right Lung location: lower lobe of lung Qualified Code(s): J18.1 - Lobar pneumonia, unspecified organism Is this a current diagnosis for this admission?: Yes Plan: Treated on admission. (8) Protein calorie malnutrition Is this a current diagnosis for this admission?: Yes Plan: Eating very well. 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 Blood glucoses well controlled on current management. - Time Time Spent with patient: Less than 15 minutes Anticipated discharge: Other Within: when bed available
--- NOTE | 2017-02-25 18:46 | RADIOLOGY REPORT (SQ) ---
EXAM DESCRIPTION: U/S NON-OB PELVIS W/O DOP COMPLETED DATE/TIME: 02/25/2017 6:35 pm REASON FOR STUDY: bladder evaluation and evaluate prostrate COMPARISON: None. TECHNIQUE: Dynamic and static grayscale images acquired of the localized site of clinical concern an d recorded on PACS. Additional selected color Doppler and spectral images recorded. SITE OF CONCERN: Urinary bladder and prostate. LIMITATIONS: None. FINDINGS: No evidence of bladder mass. Bilateral ureteral jets. Prostate 5.3 x 4.7 x 5.8 cm. IMPRESSION: No acute findings. TECHNICAL DOCUMENTATION: JOB ID: [id number] [employer]- All Rights Reserved
[2017-02-25] MEDS: LACTULOSE SYRUP 20 GM/30 ML UDCUP PO SCH (22:18)
[2017-02-25] MEDS: ATORVASTATIN CALCIUM 80 MG TABLET PO SCH (22:19)
[2017-02-25] MEDS: INSULIN LISPRO 100 UNIT/ML 3 ML VIAL SUBCUT PRN (22:21)
[2017-02-26] MEDS: LANSOPRAZOLE 15 MG TAB.RAP.DR PO SCH (06:27)
[2017-02-26] MEDS: AMPICILLIN TRIHYD 500 MG CAPSULE PO SCH ×3 (06:27→21:14)
[2017-02-26] MEDS: GABAPENTIN 300 MG CAPSULE PO SCH ×3 (06:27→21:14)
[2017-02-26] MEDS: FINASTERIDE 5 MG TABLET PO SCH (09:59)
[2017-02-26] MEDS: ASPIRIN 81 MG TABLET, ENT COATED PO SCH (09:59)
[2017-02-26] MEDS: FLUCONAZOLE 100 MG TABLET PO SCH (09:59)
[2017-02-26] MEDS: GUAIFENESIN 600 MG TABLET.SA PO SCH ×2 (09:59→21:14)
[2017-02-26] MEDS: FOLIC ACID 1 MG TABLET NG SCH (09:59)
[2017-02-26] MEDS: LACTOBACILLUS ACIDOPHILUS 250 MG TAB PO SCH ×2 (09:59→17:29)
[2017-02-26] MEDS: FUROSEMIDE 40 MG TABLET PO SCH (09:59)
[2017-02-26] MEDS: LISINOPRIL 5 MG TABLET PO SCH (10:00)
[2017-02-26] MEDS: TAMSULOSIN HCL 0.4 MG CAP.SR.24H PO SCH (10:00)
[2017-02-26] MEDS: METOPROLOL TARTRATE 25 MG TABLET PO SCH ×2 (10:00→21:14)
[2017-02-26] MEDS: MAGNESIUM OXIDE 400 MG TABLET PO SCH (10:00)
[2017-02-26] MEDS: THIAMINE HCL 100 MG TABLET NG SCH (10:00)
[2017-02-26] MEDS: SPIRONOLACTONE 25 MG TABLET PO SCH (10:00)
[2017-02-26] MEDS: ENOXAPARIN SODIUM INJ 40 MG/0.4 ML DISP.SYRIN SUBCUT SCH (10:00)
[2017-02-26] MEDS: DIGOXIN 0.125 MG TABLET PO SCH (13:34)
[2017-02-26] MEDS: INSULIN GLARGINE,HUM.REC.ANLOG 300 UNIT/3 ML INSULN.PEN SUBCUT SCH (13:36)
[2017-02-26] MEDS: ATORVASTATIN CALCIUM 80 MG TABLET PO SCH (21:14)
[2017-02-26] MEDS: LACTULOSE SYRUP 20 GM/30 ML UDCUP PO SCH (21:14)
--- NOTE | 2017-02-27 05:42 | PDOC PROGRESS REPORT ---
Subjective Progress Note for:: 02/26/17 Subjective:: Patient is a 61 year old male who presented with ED with symptoms consistent with pneumonia and hypoxic respiratory failure. Patient was encephalopathic at that time. Patient was being treated with antibiotics and oxygen however decompenstated and required intubation. CT was negative for PE. Antibiotic coverage was broadened. Patient suffered an NSTEMI and was treated medically. Cardiology was consulted. Patient was extubated. Stress test demonstrated no ischemic but he did have a depressed EF. Echo shows EF of 36%. Patient does have history of CAD s/p stent. Patient was being management medically. Enteresto discontinued due to hypotension. Patient still having some issues with hypotension but is asymptomatic. Patient asking for a pull up and new pants as he dribbled on himself. Reason For Visit: PNEUMONIA Physical Exam Vital Signs: Selected Entries 02/26/17 20:15 Temperature 97.3 F Temperature Oral Source Pulse Rate 84 Respiratory 17 Rate Blood Pressure 113/61 Blood Pressure 78 Mean BP Location Left Arm BP Position Sitting O2 Sat by Pulse 95 Oximetry Oxygen Delivery Room Air Method General appearance: PRESENT: no acute distress, well-developed, well-nourished Head exam: PRESENT: normocephalic Eye exam: ABSENT: scleral icterus Mouth exam: PRESENT: moist Neck exam: ABSENT: carotid bruit, JVD, lymphadenopathy, thyromegaly Respiratory exam: PRESENT: clear to auscultation vangie. ABSENT: rales, rhonchi, wheezes Cardiovascular exam: PRESENT: RRR. ABSENT: diastolic murmur, rubs, systolic murmur GI/Abdominal exam: PRESENT: normal bowel sounds, soft. ABSENT: distended, guarding, mass, organolmegaly, rebound, tenderness Rectal exam: PRESENT: deferred Extremities exam: PRESENT: full ROM. ABSENT: calf tenderness, clubbing, pedal edema Neurological exam: PRESENT: alert, awake, oriented to person, oriented to place , oriented to time, oriented to situation, CN II-XII grossly intact. ABSENT: motor sensory deficit Psychiatric exam: PRESENT: appropriate affect, normal mood. ABSENT: homicidal ideation, suicidal ideation Skin exam: PRESENT: dry, intact, warm. ABSENT: cyanosis, rash Results Laboratory Results: 02/25/17 04:38 02/24/17 05:34 02/02/17 02/03/17 02/04/17 21:45 03:50 01:42 Troponin I 0.030 0.066 0.043 NT-Pro-B Natriuret Pep 02/04/17 02/04/17 02/04/17 04:47 12:32 19:25 Troponin I 0.447 1.640 1.740 NT-Pro-B Natriuret Pep 02/05/17 02/06/17 02/20/17 01:21 03:55 04:24 Troponin I 1.360 0.574 NT-Pro-B Natriuret Pep 1810 H Impressions: Chest/Abdomen CTA 02/04/17 00:00 IMPRESSION: 1. There is no evidence of pulmonary emboli. 2. Small a moderate bilateral pleural effusions. 3. Left lower lobe pneumonia versus atelectasis. Chest X-Ray 02/16/17 00:00 IMPRESSION: NO SIGNIFICANT RADIOGRAPHIC FINDING IN THE CHEST. Prior changes resolved. Pelvis Ultrasound 02/25/17 00:00 IMPRESSION: No acute findings. Assessment & Plan - Diagnosis (1) UTI (urinary tract infection) due to Enterococcus Is this a current diagnosis for this admission?: Yes Plan: Patient was being treated wit keflex for enterococcus UTI however he was not improving. Sure patient is improving as he continues to complain of dysuria. Concerned that there may be trauma to the penis following insertion and removal of Fisher catheter however too much has passed. Concerned for other etiology. Possible prostatitis. Patient not complaining any longer. No abnormality on US bladder. If patient complains again with do a prostate examination. (2) Cardiomyopathy Qualifiers: Cardiomyopathy type: unspecified Qualified Code(s): I42.9 - Cardiomyopathy , unspecified Is this a current diagnosis for this admission?: Yes Plan: Stable. Continue medical management with metoprolol, lasix, lisinopril and spironolactone. Patient blood pressure seem be better on decreased dosages of medication. (3) Chronic systolic CHF (congestive heart failure), NYHA class 3 Is this a current diagnosis for this admission?: Yes (4) Coronary artery disease Qualifiers: Coronary Disease-Associated Artery/Lesion type: [place] artery [place] vs. transplanted heart: [place] heart Associated angina: angina presence unspecified Qualified Code(s): I25.10 - Atherosclerotic heart disease of [place] coronary artery without angina pectoris Is this a current diagnosis for this admission?: Yes Plan: Stable. Continue metoprolol, aspirin and statin. (5) Hemoptysis Is this a current diagnosis for this admission?: Yes Plan: Resolved. Probably due to pulmonary edema. (6) NSTEMI (non-ST elevated myocardial infarction) Is this a current diagnosis for this admission?: Yes Plan: Continue medical management. Patient is on aspirin, statin and beta-leslie. (7) Pneumonia Qualifiers: Pneumonia type: due to unspecified organism Laterality: right Lung location: lower lobe of lung Qualified Code(s): J18.1 - Lobar pneumonia, unspecified organism Is this a current diagnosis for this admission?: Yes Plan: Treated on admission. (8) Protein calorie malnutrition Is this a current diagnosis for this admission?: Yes Plan: Eating very well. Patient nutritional status was most likely related to being homeless. (9) Type 2 diabetes mellitus Qualifiers: Diabetes mellitus group home insulin use: with rat exterminator use Is this a current diagnosis for this admission?: Yes Plan: A1c 6.4. Blood glucoses well controlled. Will monitor ACHS. - Time Time Spent with patient: Less than 15 minutes Anticipated discharge: Other Within: when bed available - Patient awaiting placement.
[2017-02-27] MEDS: GABAPENTIN 300 MG CAPSULE PO SCH ×3 (05:46→21:05)
[2017-02-27] MEDS: LANSOPRAZOLE 15 MG TAB.RAP.DR PO SCH (05:46)
[2017-02-27] MEDS: AMPICILLIN TRIHYD 500 MG CAPSULE PO SCH ×3 (05:46→21:05)
[2017-02-27] MEDS: ACETAMINOPHEN 325 MG TABLET PO PRN (05:47)
[2017-02-27 06:57] LABS: HEMATOCRIT 33.7 % (37.9-51.0); HEMOGLOBIN 11.5 g/dL (13.5-17.0); MEAN CORPUSCULAR HEMOGLOBIN 32.7 pg (27.0-33.4); MEAN CORPUSCULAR HGB CONC 34.1 g/dL (32.0-36.0); MEAN CORPUSCULAR VOLUME 96 fl (80-97); PLATELET COUNT 381 10^3/uL (150-450); RED BLOOD COUNT 3.52 10^6/uL (4.35-5.55); RED CELL DISTRIBUTION WIDTH 14.7 % (11.5-14.0); WHITE BLOOD COUNT 7.9 10^3/uL (4.0-10.5)
[2017-02-27 07:22] LABS: ANION GAP 12 (5-19); BLOOD UREA NITROGEN 32 mg/dL (7-20); CALCIUM 9.2 mg/dL (8.4-10.2); CARBON DIOXIDE 23 mmol/L (22-30); CHLORIDE 99 mmol/L (98-107); GLUCOSE 137 mg/dL (75-110); MAGNESIUM 1.8 mg/dL (1.6-2.3); POTASSIUM 5.2 mmol/L (3.6-5.0)
[2017-02-27] MEDS ORDERED: OXYCODONE HCL IR 5 MG TABLET PO PRN (11:48)
[2017-02-27] MEDS: FINASTERIDE 5 MG TABLET PO SCH (11:57)
[2017-02-27] MEDS: LISINOPRIL 5 MG TABLET PO SCH (11:58)
[2017-02-27] MEDS: GUAIFENESIN 600 MG TABLET.SA PO SCH ×2 (12:00→21:04)
[2017-02-27] MEDS: METOPROLOL TARTRATE 25 MG TABLET PO SCH ×2 (12:00→21:07)
[2017-02-27] MEDS: FOLIC ACID 1 MG TABLET NG SCH (12:01)
[2017-02-27] MEDS: TAMSULOSIN HCL 0.4 MG CAP.SR.24H PO SCH (12:01)
[2017-02-27] MEDS: THIAMINE HCL 100 MG TABLET NG SCH (12:02)
[2017-02-27] MEDS: ENOXAPARIN SODIUM INJ 40 MG/0.4 ML DISP.SYRIN SUBCUT SCH (12:02)
[2017-02-27] MEDS: ASPIRIN 81 MG TABLET, ENT COATED PO SCH (12:02)
[2017-02-27] MEDS: MAGNESIUM OXIDE 400 MG TABLET PO SCH (12:02)
--- NOTE | 2017-02-27 16:23 | PDOC CONSULTATION ---
Consultation Consult Date: 02/27/17 Consult reason:: Questionable prostatitis History of Present Illness Admission Date/PCP: 02/02/17 20:39 Past Medical History Cardiac Medical History: Reports: Congestive Heart Failure, Myocardial Infarction Pulmonary Medical History: Reports: Chronic Obstructive Pulmonary Disease (COPD) Endocrine Medical History: Reports: Diabetes Mellitus Type 1, Diabetes Mellitus Type 2 - insulin dependent GI Medical History: Reports: Gastroesophageal Reflux Disease Psychiatric Medical History: Reports: Depression Past Surgical History Past Surgical History: Reports: Other - unable to obtain Social History Lives with: Homeless Smoking Status: Current Every Day Smoker Frequency of Alcohol Use: Occasional Hx Recreational Drug Use: No - unable to obtain Drugs: Cocaine Hx Prescription Drug Abuse: No - Advance Directive Resuscitation Status: Full Code Family History Family History: Reviewed & Not Pertinent Parental Family History Reviewed: No Children Family History Reviewed: No Sibling(s) Family History Reviewed.: No Medication/Allergy Home Medications: No Home Medications 02/04/17 Allergies/Adverse Reactions: walnut Allergy (Unknown, Verified 02/25/17 07:52) Physical Exam Vital Signs: Temp Pulse Resp BP Pulse Ox 97.7 F 27 L 17 103/63 92 02/27/17 12:53 02/27/17 12:53 02/27/17 12:53 02/27/17 12:53 02/27/17 12:53 Intake & Output 02/26/17 02/27/17 02/28/17 06:59 06:59 06:59 Intake Total 535 2119 Output Total 1500 2235 Balance -965 -116 Weight 74.1 kg 74.1 kg Results Laboratory Results: 02/27/17 05:56 02/27/17 05:56 02/27/17 02/27/17 05:56 05:56 WBC 7.9 RBC 3.52 L Hgb 11.5 L Hct 33.7 L MCV 96 MCH 32.7 MCHC 34.1 RDW 14.7 H Plt Count 381 Sodium 134.0 L Potassium 5.2 H Chloride 99 Carbon Dioxide 23 Anion Gap 12 BUN 32 H Creatinine 0.85 Est GFR ( Amer) > 60 Est GFR (Non-Af Amer) > 60 Glucose 137 H Calcium 9.2 Magnesium 1.8 02/02/17 02/03/17 02/04/17 21:45 03:50 01:42 Troponin I 0.030 0.066 0.043 NT-Pro-B Natriuret Pep 02/04/17 02/04/17 02/04/17 04:47 12:32 19:25 Troponin I 0.447 1.640 1.740 NT-Pro-B Natriuret Pep 02/05/17 02/06/17 02/20/17 01:21 03:55 04:24 Troponin I 1.360 0.574 NT-Pro-B Natriuret Pep 1810 H Impressions: Chest/Abdomen CTA 02/04/17 00:00 IMPRESSION: 1. There is no evidence of pulmonary emboli. 2. Small a moderate bilateral pleural effusions. 3. Left lower lobe pneumonia versus atelectasis. Chest X-Ray 02/16/17 00:00 IMPRESSION: NO SIGNIFICANT RADIOGRAPHIC FINDING IN THE CHEST. Prior changes resolved. Pelvis Ultrasound 02/25/17 00:00 IMPRESSION: No acute findings. Assessment & Plan - Plan Summary Plan Summary: Allergy consultation This patient is a 61-year-old admitted for pneumonia in January of last year. She had a protracted hospital course. During that time he had a Fisher catheter which was taken out during this hospitalization. Since that time he has had typical burning and urethral sensations typical for an indwelling Fisher catheter. Previous to the hospital admission and currently he is experiencing typical symptoms of BPH with slow urinary stream and some frequency and nocturia. He is currently awaiting placement and discharge.
[2017-02-27] MEDS: KETOROLAC TROMETHAMINE INJ/PF 30 MG/1 ML SDV IV SCH ×2 (18:43→18:56)
[2017-02-27] MEDS: DIGOXIN 0.125 MG TABLET PO SCH (18:56)
[2017-02-27] MEDS: INSULIN GLARGINE,HUM.REC.ANLOG 300 UNIT/3 ML INSULN.PEN SUBCUT SCH (18:57)
[2017-02-27] MEDS: ATORVASTATIN CALCIUM 80 MG TABLET PO SCH (21:05)
[2017-02-27] MEDS: LACTULOSE SYRUP 20 GM/30 ML UDCUP PO SCH (21:05)
[2017-02-27 22:42] LABS: APPEARANCE,URINE SLIGHTLY-CLOUDY; BILIRUBIN,URINE NEGATIVE (NEGATIVE); COLOR,URINE YELLOW; GLUCOSE, URINE NEGATIVE (NEGATIVE); KETONES,URINE NEGATIVE (NEGATIVE); LEUKOCYTE ESTERASE,URINE MODERATE (NEGATIVE); NITRITE,URINE NEGATIVE (NEGATIVE); PROTEIN,URINE NEGATIVE (NEGATIVE); URINE SPECIFIC GRAVITY 1.014; UROBILINOGEN,URINE NEGATIVE mg/dL (<2.0)
[2017-02-27] MEDS ORDERED: CARVEDILOL 3.125 MG TABLET PO ONE (23:55)
[2017-02-28] MEDS: KETOROLAC TROMETHAMINE INJ/PF 30 MG/1 ML SDV IV SCH ×4 (00:15→23:22)
[2017-02-28 06:04] LABS: ANION GAP 10 (5-19); BLOOD UREA NITROGEN 35 mg/dL (7-20); CALCIUM 8.9 mg/dL (8.4-10.2); CARBON DIOXIDE 23 mmol/L (22-30); CHLORIDE 98 mmol/L (98-107); GLUCOSE 126 mg/dL (75-110); MAGNESIUM 1.9 mg/dL (1.6-2.3); POTASSIUM 4.9 mmol/L (3.6-5.0); SODIUM 131.2 mmol/L (137-145)
[2017-02-28] MEDS: AMPICILLIN TRIHYD 500 MG CAPSULE PO SCH (06:18)
[2017-02-28] MEDS: LANSOPRAZOLE 15 MG TAB.RAP.DR PO SCH (06:18)
[2017-02-28] MEDS: GABAPENTIN 300 MG CAPSULE PO SCH ×3 (06:18→21:49)
[2017-02-28] MEDS ORDERED: NORMAL SALINE 1000 ML 1,000 ML IV PRN (07:25)
[2017-02-28] MEDS: FOLIC ACID 1 MG TABLET NG SCH (10:20)
[2017-02-28] MEDS: THIAMINE HCL 100 MG TABLET NG SCH (10:20)
[2017-02-28] MEDS: MAGNESIUM OXIDE 400 MG TABLET PO SCH (10:21)
[2017-02-28] MEDS: TAMSULOSIN HCL 0.4 MG CAP.SR.24H PO SCH (10:21)
[2017-02-28] MEDS: FINASTERIDE 5 MG TABLET PO SCH (10:21)
[2017-02-28] MEDS: ASPIRIN 81 MG TABLET, ENT COATED PO SCH (10:21)
[2017-02-28] MEDS: ENOXAPARIN SODIUM INJ 40 MG/0.4 ML DISP.SYRIN SUBCUT SCH (10:22)
[2017-02-28] MEDS ORDERED: OXYCODONE HCL IR 5 MG TABLET PO PRN (14:30)
[2017-02-28] MEDS: DIGOXIN 0.125 MG TABLET PO SCH (17:09)
[2017-02-28] MEDS: INSULIN GLARGINE,HUM.REC.ANLOG 300 UNIT/3 ML INSULN.PEN SUBCUT SCH (17:14)
[2017-02-28] MEDS: INSULIN LISPRO 100 UNIT/ML 3 ML VIAL SUBCUT PRN ×2 (17:16→22:27)
[2017-02-28] MEDS: ATORVASTATIN CALCIUM 80 MG TABLET PO SCH (21:49)
[2017-02-28] MEDS: LACTULOSE SYRUP 20 GM/30 ML UDCUP PO SCH (21:49)
[2017-02-28 23:13] LABS: ABSOLUTE BASOPHILS # (AUTO) 0.1 10^3/uL (0.0-0.2); ABSOLUTE EOSINOPHILS # (AUTO) 0.2 10^3/uL (0.0-0.6); ABSOLUTE LYMPHOCYTES (AUTO) 3.1 10^3/uL (0.5-4.7); ABSOLUTE MONOCYTES (AUTO) 0.8 10^3/uL (0.1-1.4); ABSOLUTE NEUT (AUTO) 4.4 10^3/uL (1.7-8.2); BASOPHILS % (AUTO) 0.9 % (0-2); EOSINOPHILS % (AUTO) 2.3 % (0-6); HEMATOCRIT 32.8 % (37.9-51.0); HEMOGLOBIN 11.2 g/dL (13.5-17.0); MEAN CORPUSCULAR HEMOGLOBIN 32.5 pg (27.0-33.4); MEAN CORPUSCULAR HGB CONC 34.1 g/dL (32.0-36.0); MEAN CORPUSCULAR VOLUME 95 fl (80-97); MONOCYTES % (AUTO) 8.8 % (3-13); PLATELET COUNT 390 10^3/uL (150-450); RED BLOOD COUNT 3.44 10^6/uL (4.35-5.55); RED CELL DISTRIBUTION WIDTH 14.9 % (11.5-14.0); TOTAL CELLS COUNTED % (AUTO) 100 %; WHITE BLOOD COUNT 8.5 10^3/uL (4.0-10.5)
[2017-03-01 05:32] LABS: HEMATOCRIT 32.9 % (37.9-51.0); HEMOGLOBIN 11.2 g/dL (13.5-17.0); MEAN CORPUSCULAR HEMOGLOBIN 32.4 pg (27.0-33.4); MEAN CORPUSCULAR VOLUME 96 fl (80-97); PLATELET COUNT 367 10^3/uL (150-450); RED BLOOD COUNT 3.44 10^6/uL (4.35-5.55); RED CELL DISTRIBUTION WIDTH 14.7 % (11.5-14.0)
[2017-03-01 05:49] LABS: ANION GAP 9 (5-19); BLOOD UREA NITROGEN 43 mg/dL (7-20); CALCIUM 8.7 mg/dL (8.4-10.2); CARBON DIOXIDE 22 mmol/L (22-30); CHLORIDE 99 mmol/L (98-107); GLUCOSE 134 mg/dL (75-110); MAGNESIUM 1.9 mg/dL (1.6-2.3); SODIUM 130.2 mmol/L (137-145)
[2017-03-01] MEDS: GABAPENTIN 300 MG CAPSULE PO SCH ×2 (06:57→17:23)
[2017-03-01] MEDS: KETOROLAC TROMETHAMINE INJ/PF 30 MG/1 ML SDV IV SCH (06:57)
[2017-03-01] MEDS: LANSOPRAZOLE 15 MG TAB.RAP.DR PO SCH (06:57)
[2017-03-01] MEDS: FINASTERIDE 5 MG TABLET PO SCH (09:13)
[2017-03-01] MEDS: TAMSULOSIN HCL 0.4 MG CAP.SR.24H PO SCH (09:13)
[2017-03-01] MEDS: THIAMINE HCL 100 MG TABLET NG SCH (09:13)
[2017-03-01] MEDS: ENOXAPARIN SODIUM INJ 40 MG/0.4 ML DISP.SYRIN SUBCUT SCH (09:14)
[2017-03-01] MEDS: ASPIRIN 81 MG TABLET, ENT COATED PO SCH (09:14)
[2017-03-01] MEDS: FOLIC ACID 1 MG TABLET NG SCH (09:14)
[2017-03-01] MEDS: MAGNESIUM OXIDE 400 MG TABLET PO SCH (09:14)
--- NOTE | 2017-03-01 12:02 | PDOC PROGRESS REPORT ---
Subjective Subjective:: Patient is a 61 year old male who presented with ED with symptoms consistent with pneumonia and hypoxic respiratory failure. Patient was encephalopathic at that time. Patient was being treated with antibiotics and oxygen however decompenstated and required intubation. CT was negative for PE. Antibiotic coverage was broadened. Patient suffered an NSTEMI and was treated medically. Cardiology was consulted. Patient was extubated. Stress test demonstrated no ischemic but he did have a depressed EF. Echo shows EF of 36%. Patient does have history of CAD s/p stent. Patient was being management medically. Enteresto discontinued due to hypotension. Patient still having some issues with hypotension but is asymptomatic. Patient doing well today. He is rolling around the [place] in the wheelchair. Reason For Visit: PNEUMONIA Physical Exam Vital Signs: Temp Pulse Resp BP Pulse Ox 97.6 F 89 17 83/50 L 95 02/27/17 15:52 02/27/17 15:52 02/27/17 15:52 02/27/17 15:52 02/27/17 15:52 Intake & Output 02/26/17 02/27/17 02/28/17 06:59 06:59 06:59 Intake Total 535 2119 554 Output Total 1500 2235 850 Balance -965 -116 -296 Weight 74.1 kg 74.1 kg General appearance: PRESENT: no acute distress, thin, well-developed, well- nourished Head exam: PRESENT: normocephalic Eye exam: ABSENT: scleral icterus Ear exam: PRESENT: normal external ear exam Mouth exam: PRESENT: moist Neck exam: ABSENT: carotid bruit, JVD, lymphadenopathy, thyromegaly Respiratory exam: PRESENT: clear to auscultation vangie. ABSENT: rales, rhonchi, wheezes Cardiovascular exam: PRESENT: RRR. ABSENT: diastolic murmur, rubs, systolic murmur Pulses: PRESENT: normal [place] pedis pul Vascular exam: PRESENT: normal capillary refill GI/Abdominal exam: PRESENT: normal bowel sounds, soft. ABSENT: distended, guarding, mass, organolmegaly, rebound, tenderness Rectal exam: PRESENT: deferred Extremities exam: PRESENT: full ROM. ABSENT: calf tenderness, clubbing, pedal edema Neurological exam: PRESENT: alert, awake, oriented to person, oriented to place , CN II-XII grossly intact. ABSENT: motor sensory deficit Psychiatric exam: PRESENT: appropriate affect, normal mood. ABSENT: homicidal ideation, suicidal ideation Skin exam: PRESENT: dry, intact, warm. ABSENT: cyanosis, rash Results Laboratory Results: 02/27/17 05:56 02/27/17 05:56 02/27/17 02/27/17 02/27/17 05:56 05:56 21:15 WBC 7.9 RBC 3.52 L Hgb 11.5 L Hct 33.7 L MCV 96 MCH 32.7 MCHC 34.1 RDW 14.7 H Plt Count 381 Sodium 134.0 L Potassium 5.2 H Chloride 99 Carbon Dioxide 23 Anion Gap 12 BUN 32 H Creatinine 0.85 Est GFR ( Amer) > 60 Est GFR (Non-Af Amer) > 60 Glucose 137 H Calcium 9.2 Magnesium 1.8 Urine Color YELLOW Urine Appearance SLIGHTLY-CLOUDY Urine pH 5.0 Ur Specific [place] 1.014 Urine Protein NEGATIVE Urine Glucose (UA) NEGATIVE Urine Ketones NEGATIVE Urine Blood NEGATIVE Urine Nitrite NEGATIVE Ur Leukocyte Esterase MODERATE H Urine WBC (Auto) 44 Urine RBC (Auto) 1 02/02/17 02/03/17 02/04/17 21:45 03:50 01:42 Troponin I 0.030 0.066 0.043 NT-Pro-B Natriuret Pep 02/04/17 02/04/17 02/04/17 04:47 12:32 19:25 Troponin I 0.447 1.640 1.740 NT-Pro-B Natriuret Pep 02/05/17 02/06/17 02/20/17 01:21 03:55 04:24 Troponin I 1.360 0.574 NT-Pro-B Natriuret Pep 1810 H Impressions: Chest/Abdomen CTA 02/04/17 00:00 IMPRESSION: 1. There is no evidence of pulmonary emboli. 2. Small a moderate bilateral pleural effusions. 3. Left lower lobe pneumonia versus atelectasis. Chest X-Ray 02/16/17 00:00 IMPRESSION: NO SIGNIFICANT RADIOGRAPHIC FINDING IN THE CHEST. Prior changes resolved. Pelvis Ultrasound 02/25/17 00:00 IMPRESSION: No acute findings. Assessment & Plan - Diagnosis (1) UTI (urinary tract infection) due to Enterococcus Is this a current diagnosis for this admission?: Yes Plan: Patient was being treated wit keflex for enterococcus UTI however he was not improving. Sure patient is improving as he continues to complain of dysuria. Concerned that there may be trauma to the penis following insertion and removal of Fisher catheter however too much has passed. Concerned for other etiology. Patient complaining of pain again. Urology consulted. Recommend repeat UA and urine culture and pyridium which patient was already one without any relief. Patient also on flomax and proscar. Started patient on a NSAID. (2) Cardiomyopathy Qualifiers: Cardiomyopathy type: unspecified Qualified Code(s): I42.9 - Cardiomyopathy , unspecified Is this a current diagnosis for this admission?: Yes Plan: Stable. Patient hypotensive. Will only continue digoxin and beta leslie. (3) Chronic systolic CHF (congestive heart failure), NYHA class 3 Is this a current diagnosis for this admission?: Yes Plan: Compensated. Continue management as stated above in cardiomyopathy. Patient hypotensive and feeling drained. Will only continue digoixin and beta leslie. Will hold diurectics and ACEI. (4) Coronary artery disease Qualifiers: Coronary Disease-Associated Artery/Lesion type: [place] artery [place] vs. transplanted heart: [place] heart Associated angina: angina presence unspecified Qualified Code(s): I25.10 - Atherosclerotic heart disease of [place] coronary artery without angina pectoris Is this a current diagnosis for this admission?: Yes Plan: Stable. Continue beta leslie, aspirin and statin. (5) Hemoptysis Is this a current diagnosis for this admission?: Yes Plan: Resolved. Probably due to pulmonary edema. (6) NSTEMI (non-ST elevated myocardial infarction) Is this a current diagnosis for this admission?: Yes Plan: Continue medical management. Patient is on aspirin, statin and beta-leslie. (7) Pneumonia Qualifiers: Pneumonia type: due to unspecified organism Laterality: right Lung location: lower lobe of lung Qualified Code(s): J18.1 - Lobar pneumonia, unspecified organism Is this a current diagnosis for this admission?: Yes Plan: Treated on admission. (8) Protein calorie malnutrition Is this a current diagnosis for this admission?: Yes Plan: Eating very well. Patient nutritional status was most likely related to being homeless. (9) Type 2 diabetes mellitus Qualifiers: Diabetes mellitus terminal gauger insulin use: with fci use Is this a current diagnosis for this admission?: Yes Plan: A1c 6.4. Blood glucoses well controlled. Will monitor ACHS. - Time Time Spent with patient: Less than 15 minutes Anticipated discharge: SNF - Inpatient Certification Medical Necessity: Need Close Monitoring Due to Risk of Patient Decompensation, Other - Still adjusting cardiac medications.
--- NOTE | 2017-03-01 14:08 | PDOC PROGRESS REPORT ---
Subjective Progress Note for:: 02/28/17 Subjective:: Patient is a 61 year old male who presented with ED with symptoms consistent with pneumonia and hypoxic respiratory failure. Patient was encephalopathic at that time. Patient was being treated with antibiotics and oxygen however decompenstated and required intubation. CT was negative for PE. Antibiotic coverage was broadened. Patient suffered an NSTEMI and was treated medically. Cardiology was consulted. Patient was extubated. Stress test demonstrated no ischemic but he did have a depressed EF. Echo shows EF of 36%. Patient does have history of CAD s/p stent. Patient was being management medically. Enteresto discontinued due to hypotension. Patient states that he feels better today. He still has the burning with urination from time to time. Patient states that he feels better today after getting some fluids. Reason For Visit: PNEUMONIA Physical Exam Vital Signs: Temp Pulse Resp BP Pulse Ox 97.5 F 85 20 102/52 L 99 02/28/17 15:34 02/28/17 15:34 02/28/17 15:34 02/28/17 15:34 02/28/17 15:34 Intake & Output 02/27/17 02/28/17 03/01/17 06:59 06:59 06:59 Intake Total 2119 1459 1450 Output Total 2235 1950 500 Balance -116 -491 950 Weight 74.1 kg 74.1 kg General appearance: PRESENT: no acute distress, thin, well-developed, well- nourished Eye exam: PRESENT: EOMI. ABSENT: scleral icterus Ear exam: PRESENT: normal external ear exam Mouth exam: PRESENT: moist Neck exam: ABSENT: carotid bruit, JVD, lymphadenopathy, thyromegaly Respiratory exam: PRESENT: clear to auscultation vangie. ABSENT: rales, rhonchi, wheezes Cardiovascular exam: PRESENT: RRR. ABSENT: diastolic murmur, rubs, systolic murmur GI/Abdominal exam: PRESENT: normal bowel sounds, soft. ABSENT: distended, guarding, mass, organolmegaly, rebound, tenderness Rectal exam: PRESENT: deferred Extremities exam: PRESENT: full ROM. ABSENT: calf tenderness, clubbing, pedal edema Neurological exam: PRESENT: alert, awake, oriented to person, oriented to place , CN II-XII grossly intact. ABSENT: motor sensory deficit Psychiatric exam: PRESENT: appropriate affect, normal mood. ABSENT: homicidal ideation, suicidal ideation Skin exam: PRESENT: dry, intact, warm. ABSENT: cyanosis, rash Results Laboratory Results: 02/27/17 05:56 02/28/17 04:30 02/28/17 04:30 Sodium 131.2 L Potassium 4.9 Chloride 98 Carbon Dioxide 23 Anion Gap 10 BUN 35 H Creatinine 0.80 Est GFR ( Amer) > 60 Est GFR (Non-Af Amer) > 60 Glucose 126 H Calcium 8.9 Magnesium 1.9 02/02/17 02/03/17 02/04/17 21:45 03:50 01:42 Troponin I 0.030 0.066 0.043 NT-Pro-B Natriuret Pep 02/04/17 02/04/17 02/04/17 04:47 12:32 19:25 Troponin I 0.447 1.640 1.740 NT-Pro-B Natriuret Pep 02/05/17 02/06/17 02/20/17 01:21 03:55 04:24 Troponin I 1.360 0.574 NT-Pro-B Natriuret Pep 1810 H Impressions: Chest/Abdomen CTA 02/04/17 00:00 IMPRESSION: 1. There is no evidence of pulmonary emboli. 2. Small a moderate bilateral pleural effusions. 3. Left lower lobe pneumonia versus atelectasis. Chest X-Ray 02/16/17 00:00 IMPRESSION: NO SIGNIFICANT RADIOGRAPHIC FINDING IN THE CHEST. Prior changes resolved. Pelvis Ultrasound 02/25/17 00:00 IMPRESSION: No acute findings. Assessment & Plan - Diagnosis (1) UTI (urinary tract infection) due to Enterococcus Is this a current diagnosis for this admission?: Yes Plan: Patient was being treated wit keflex for enterococcus UTI however he was not improving. Sure patient is improving as he continues to complain of dysuria. Concerned that there may be trauma to the penis following insertion and removal of Fisher catheter however too much has passed. Concerned for other etiology. Patient complaining of pain again. Urology consulted. Continue flomax and proscar. Continue patient on a NSAID. (2) Cardiomyopathy Qualifiers: Cardiomyopathy type: unspecified Qualified Code(s): I42.9 - Cardiomyopathy , unspecified Is this a current diagnosis for this admission?: Yes Plan: Stable. Patient hypotensive but started on gentle hydration. Will only continue digoxin and beta leslie. Switch to Coreg. (3) Chronic systolic CHF (congestive heart failure), NYHA class 3 Is this a current diagnosis for this admission?: Yes Plan: Compensated. Continue management as stated above in cardiomyopathy. Patient hypotensive and feeling drained. Will only continue digoixin and beta leslie. Will hold diurectics and ACEI. Patient started on gentle hydration as he may have been diuresed. (4) Coronary artery disease Qualifiers: Coronary Disease-Associated Artery/Lesion type: [place] artery [place] vs. transplanted heart: [place] heart Associated angina: angina presence unspecified Qualified Code(s): I25.10 - Atherosclerotic heart disease of [place] coronary artery without angina pectoris Is this a current diagnosis for this admission?: Yes Plan: Stable. Continue beta leslie, aspirin and statin. (5) Hemoptysis Is this a current diagnosis for this admission?: Yes Plan: Resolved. Probably due to pulmonary edema. (6) NSTEMI (non-ST elevated myocardial infarction) Is this a current diagnosis for this admission?: Yes Plan: Continue medical management. Patient is on aspirin, statin and beta-leslie. (7) Pneumonia Qualifiers: Pneumonia type: due to unspecified organism Laterality: right Lung location: lower lobe of lung Qualified Code(s): J18.1 - Lobar pneumonia, unspecified organism Is this a current diagnosis for this admission?: Yes Plan: Treated on admission. (8) Protein calorie malnutrition Is this a current diagnosis for this admission?: Yes Plan: Eating very well. Patient nutritional status was most likely related to being homeless. (9) Type 2 diabetes mellitus Qualifiers: Diabetes mellitus community health worker insulin use: with community health worker use Is this a current diagnosis for this admission?: Yes Plan: A1c 6.4. Blood glucoses well controlled. Continue to monitor ACHS. (10) Hyponatremia Is this a current diagnosis for this admission?: Yes Plan: Patient had mild hyponatremia most likely due to being over diuresed with Lasix and spironolactone. Will hold his diuretics and gently hydrate with IV fluids at 75 cc an hour for 1 L. - Time Time Spent with patient: Less than 15 minutes Anticipated discharge: SNF Within: within 24 hours - Inpatient Certification Medical Necessity: Need For IV Fluids
--- NOTE | 2017-03-01 14:26 | PDOC TRANSFER SUMMARY ---
General - Admit/Disc Date/PCP Admission Date/Primary Care Provider: 02/02/17 20:39 Discharge Date: 03/01/17 - Discharge Diagnosis (1) UTI (urinary tract infection) due to Enterococcus Is this a current diagnosis for this admission?: Yes (2) Cardiomyopathy Is this a current diagnosis for this admission?: Yes (3) Chronic systolic CHF (congestive heart failure), NYHA class 3 Is this a current diagnosis for this admission?: Yes (4) Coronary artery disease Is this a current diagnosis for this admission?: Yes (5) Hemoptysis Is this a current diagnosis for this admission?: Yes (6) NSTEMI (non-ST elevated myocardial infarction) Is this a current diagnosis for this admission?: Yes (7) Pneumonia Is this a current diagnosis for this admission?: Yes (8) Protein calorie malnutrition Is this a current diagnosis for this admission?: Yes (9) Type 2 diabetes mellitus Is this a current diagnosis for this admission?: Yes (10) Hyponatremia Is this a current diagnosis for this admission?: Yes - Additional Information Resuscitation Status: Full Code Discharge Diet: Cardiac, Diabetic Discharge Activity: Activity As Tolerated Prescriptions: Carvedilol [Coreg 3.125 mg Tablet] 3.125 mg PO Q12 #60 tablet Metformin HCl 500 mg PO BID #60 tablet Oxybutynin Chloride [Oxybutynin Chloride ER] 5 mg PO DAILY #30 tab.er.24 Phenazopyridine HCl [Pyridium 200 mg Tablet] 200 mg PO TID PRN #15 tablet PRN Reason: pain with urination Home Medications: Acetaminophen [Tylenol 325 mg Tablet] 650 mg PO Q4HP PRN tablet 03/01/17 Aspirin [Ecotrin 81 mg EC Tablet] 81 mg PO DAILY tabec 03/01/17 Atorvastatin Calcium [Lipitor 80 mg Tablet] 80 mg PO QHS tablet 03/01/17 Carvedilol [Coreg 3.125 mg Tablet] 3.125 mg PO Q12 #60 tablet 03/01/17 Digoxin [Lanoxin 0.125 mg Tablet] 0.125 mg PO DAILY@1400 tablet 03/01/17 Finasteride [Proscar 5 mg Tablet] 5 mg PO DAILY tablet 03/01/17 Gabapentin [Neurontin 300 mg Capsule] 300 mg PO Q8 capsule 03/01/17 Insulin Glargine,Hum.rec.anlog [Lantus Insulin 100 Unit/mL] 16 unit SUBCUT DAILY @1200 insuln.pen 03/01/17 Lisinopril [Prinivil 2.5 mg Tablet] 2.5 mg PO DAILY #30 tablet 03/01/17 Metformin HCl 500 mg PO BID #60 tablet 03/01/17 Oxybutynin Chloride [Oxybutynin Chloride ER] 5 mg PO DAILY #30 tab.er.24 Phenazopyridine HCl [Pyridium 200 mg Tablet] 200 mg PO TID PRN #15 tablet Tamsulosin HCl [Flomax 0.4 mg Cap.sr] 0.4 mg PO DAILY cap.sr.24h 03/01/17 History of Present Illness Admission Date/PCP: 02/02/17 20:39 History of Present Illness: TAMMY RICHARDS is a 61 year old male with past medical history of GERD, BPH and neuropathy who presents to the emergency department with shortness of breath, productive cough, and fever for several days. History is difficult to obtain from patient as he will arouse when stimulated, but quickly falls back asleep. The remainder of the history is obtained from the ER provider and the medical record. Original H&P dictated by Dr. Matt. Please refer to H&P dictated by Dr. Matt for complete details. Hospital Course Hospital Course: Patient presented with acute metabolic encephalopathy most likely due to underlying sepsis. Patient was started on treatment for community-acquired pneumonia. Patient was noted to have some acute hypoxic respiratory failure which was thought to be most likely due to his underlying pneumonia. Patient was treated with supplemental oxygen. On 02/04 patient was transferred to the ICU and immediately intubated. CTA of the chest was done to rule out PE. It was negative for PE. There was concern that patient may have aspirated found to have a pH of 6.9 and PCO2 in the 120s patient antibiotic coverage was broadened. Patient troponins were elevated and thought that patient may have had an NSTEMI. Drip. Patient was placed on heparin and cardiology and pulmonary were consulted. He had a cardiac echo completed which showed an EF of 36%. Patient was started on cardiac medications however did not tolerate them due to hypotension. After being intubated patient was extubated and underwent a nuclear medicine stress test which showed no definite ischemia. Patient was started on aspirin statin and beta-bernie. Interested was started however patient became hypotensive and this was discontinued. Patient was reintroduced to 80s however patient became hypotensive and it was discontinued. Patient became hypotensive therefore all diuretics and LIANE were discontinued. Patient remained on digoxin and now Coreg 3.125 mg p.o. twice daily. Patient does have a history of BPH had a Fisher placed during his hospitalization. Patient did develop enterococcus UTI for which he was treated with multiple days of ampicillin. Patient continued to complain of dysuria despite being adequately treated and Pyridium being used to help with the burning. Patient was evaluated by urology who recommended Flomax, Proscar and Pyridium as needed. Patient can also follow-up with him as outpatient. Patient does have type 2 diabetes which is well controlled on the current regimen of insulin glargine 16 units daily along with sliding scale insulin. However it may be easier if patient still started on metformin 500 mg p.o. twice daily along with the insulin. She overall is doing much better however will intermittently complain of dysuria on urination. Patient was evaluated by urology 2 days prior to his discharge. Patient should follow-up with urology for his known history of BPH. Patient is being discharged to outside facility. Physical Exam Vital Signs: Temp Pulse Resp BP Pulse Ox 98.2 F 86 18 113/81 100 03/01/17 08:43 03/01/17 08:43 03/01/17 08:43 03/01/17 08:43 03/01/17 08:43 Intake & Output 02/28/17 03/01/17 03/02/17 06:59 06:59 06:59 Intake Total 1459 2475 Output Total 1950 1455 Balance -491 1020 Weight 74.1 kg 74.1 kg Results Laboratory Results: 03/01/17 05:01 03/01/17 05:01 02/28/17 03/01/17 03/01/17 23:05 05:01 05:01 WBC 8.5 10.0 RBC 3.44 L 3.44 L Hgb 11.2 L 11.2 L Hct 32.8 L 32.9 L MCV 95 96 MCH 32.5 32.4 MCHC 34.1 34.0 RDW 14.9 H 14.7 H Plt Count 390 367 Seg Neutrophils % 52.0 Lymphocytes % 36.0 Monocytes % 8.8 Eosinophils % 2.3 Basophils % 0.9 Absolute Neutrophils 4.4 Absolute Lymphocytes 3.1 Absolute Monocytes 0.8 Absolute Eosinophils 0.2 Absolute Basophils 0.1 Sodium 130.2 L Potassium 5.0 Chloride 99 Carbon Dioxide 22 Anion Gap 9 BUN 43 H Creatinine 1.08 Est GFR ( Amer) > 60 Est GFR (Non-Af Amer) > 60 Glucose 134 H Calcium 8.7 Magnesium 1.9 02/02/17 02/03/17 02/04/17 21:45 03:50 01:42 Troponin I 0.030 0.066 0.043 NT-Pro-B Natriuret Pep 02/04/17 02/04/17 02/04/17 04:47 12:32 19:25 Troponin I 0.447 1.640 1.740 NT-Pro-B Natriuret Pep 02/05/17 02/06/17 02/20/17 01:21 03:55 04:24 Troponin I 1.360 0.574 NT-Pro-B Natriuret Pep 1810 H Impressions: Chest/Abdomen CTA 02/04/17 00:00 IMPRESSION: 1. There is no evidence of pulmonary emboli. 2. Small a moderate bilateral pleural effusions. 3. Left lower lobe pneumonia versus atelectasis. Chest X-Ray 02/16/17 00:00 IMPRESSION: NO SIGNIFICANT RADIOGRAPHIC FINDING IN THE CHEST. Prior changes resolved. Pelvis Ultrasound 02/25/17 00:00 IMPRESSION: No acute findings. Transfer Plan - Time Spent with Patient Time spent with patient: Greater than 30 Minutes Qualifiers PATEINT BEING DISCHARGED WITH ANY OF THE FOLLOWING DIAGNOSIS?: Heart Failure, MO VTE patient discharged on overlapping Therapy?: No MO Pt being discharged on Aspirin therapy?: Yes MO Pt being discharged on Statins?: Yes MO Pt discharged ACEI/ARBS?: Yes HF Pt being discharged on ACEI for LVEF less than 40%?: Yes HF Pt being discharged on ARBS for LVEF less than 40%?: No HF Pt discharged on evidence-based Beta Bernie:: Yes Plan Time Spent: Greater than 30 Minutes
[2017-03-01 15:30] VITALS: BP 103/57
[2017-03-01] MEDS: DIGOXIN 0.125 MG TABLET PO SCH (17:22)
[2017-03-01] MEDS: INSULIN GLARGINE,HUM.REC.ANLOG 300 UNIT/3 ML INSULN.PEN SUBCUT SCH (17:23)
--- NOTE | 2017-03-04 13:36 | PDOC PROGRESS REPORT ---
Subjective Progress Note for:: 02/26/17 Subjective:: Currently without complaints awaiting lunch Reason For Visit: PNEUMONIA Physical Exam Vital Signs: Temp Pulse Resp BP Pulse Ox 97.8 F 95 72 H 103/57 L 100 03/01/17 12:00 03/01/17 19:00 03/01/17 12:00 03/01/17 12:00 03/01/17 12:00 Results Laboratory Results: 03/01/17 05:01 03/01/17 05:01 02/02/17 02/03/17 02/04/17 21:45 03:50 01:42 Troponin I 0.030 0.066 0.043 NT-Pro-B Natriuret Pep 02/04/17 02/04/17 02/04/17 04:47 12:32 19:25 Troponin I 0.447 1.640 1.740 NT-Pro-B Natriuret Pep 02/05/17 02/06/17 02/20/17 01:21 03:55 04:24 Troponin I 1.360 0.574 NT-Pro-B Natriuret Pep 1810 H Impressions: Chest/Abdomen CTA 02/04/17 00:00 IMPRESSION: 1. There is no evidence of pulmonary emboli. 2. Small a moderate bilateral pleural effusions. 3. Left lower lobe pneumonia versus atelectasis. Chest X-Ray 02/16/17 00:00 IMPRESSION: NO SIGNIFICANT RADIOGRAPHIC FINDING IN THE CHEST. Prior changes resolved. Pelvis Ultrasound 02/25/17 00:00 IMPRESSION: No acute findings. Assessment & Plan - Diagnosis (1) Acute respiratory failure with hypoxia and hypercapnia Is this a current diagnosis for this admission?: No (2) Pneumonia Qualifiers: Pneumonia type: due to unspecified organism Laterality: right Lung location: lower lobe of lung Qualified Code(s): J18.1 - Lobar pneumonia, unspecified organism Is this a current diagnosis for this admission?: Yes (3) Sepsis Qualifiers: Sepsis type: sepsis due to unspecified organism Qualified Code(s): A41.9 - Sepsis, unspecified organism Is this a current diagnosis for this admission?: No
== END 2017-03-01 20:13 | DRG 871 ==
LOC: ER 18:02 → EH 20:39 → 4S 22:36 → ICU 02-04 01:25 → 3N 02-07 14:30 → 5 02-25 13:01
PROVIDERS: ADMIT Family Medicine; ATTEND Family Medicine
PROC: 0BH17EZ Insertion of Endotracheal Airway into Trachea, Via Natural or Artificial Opening (ICD-10-PCS; principal; 2017-02-04)
PROC: 5A1945Z Respiratory Ventilation, 24-96 Consecutive Hours (ICD-10-PCS; 2017-02-04)
DX: A41.9 Sepsis, unspecified organism (principal); J18.1 Lobar pneumonia, unspecified organism; G93.41 Metabolic encephalopathy; I21.4 Non-ST elevation (NSTEMI) myocardial infarction; J96.01 Acute respiratory failure with hypoxia; J96.02 Acute respiratory failure with hypercapnia; J44.0 Chronic obstructive pulmonary disease with (acute) lower respiratory infection; N39.0 Urinary tract infection, site not specified; E46 Unspecified protein-calorie malnutrition; R04.2 Hemoptysis; I42.9 Cardiomyopathy, unspecified; I50.22 Chronic systolic (congestive) heart failure; E87.1 Hypo-osmolality and hyponatremia; B95.2 Enterococcus as the cause of diseases classified elsewhere; I25.10 Atherosclerotic heart disease of native coronary artery without angina pectoris; E11.40 Type 2 diabetes mellitus with diabetic neuropathy, unspecified; K21.9 Gastro-esophageal reflux disease without esophagitis; N40.0 Benign prostatic hyperplasia without lower urinary tract symptoms; F10.10 Alcohol abuse, uncomplicated; F32.9 Major depressive disorder, single episode, unspecified; Z79.84 Long term (current) use of oral hypoglycemic drugs; Z79.899 Other long term (current) drug therapy; F17.200 Nicotine dependence, unspecified, uncomplicated; Z91.018 Allergy to other foods; Z59.0 Homelessness
CPT/HCPCS: 31500; 36415; 36600; 71010; 71020; 71275; 76856; 78452; 80048; 80053; 80202; 80307; 81001; 82140; 82272; 82330; 82550; 82553; 82803; 82962; 83036; 83605; 83735; 83880; 84100; 84134; 84443; 84484; 85025; 85027; 85610; 85730; 86592; 86695; 86696; 86701; 87040; 87070; 87086; 87088; 87186; 87205; 87491; 87591; 93005; 93010; 93017; 93306; 94002; 94003; 94640; 94660; 94667; 94668; 94799; 96365; 99291; 99406; A9500; G8978-GP; G8979-GP; G8987-GO; G8988-GO; G8989-GO; G8996-GN; G8997-GN; J0280; J0295; J0456; J0610; J0696; J1100; J1250; J1450; J1644; J1650; J1815; J1885; J1940; J2060; J2543; J2704; J2785; J2930; J3010; J3370; J3411; J3475; J3480; J3490; J7030; J7040; J7060; J7512; J7620; Q9969

== ENCOUNTER 2017-03-10 04:44 | Inpatient (IN) | payer OTHER, MEDICARE, MEDICAID ==
[2017-03-10] MEDS ORDERED: NITROGLYCERIN 0.4 MG/TAB 25 TAB/BOTTLE ONE (04:46)
[2017-03-10] MEDS ORDERED: IPRATROPIUM/ALBUTEROL 0.5-2.5 MG/3 ML AMPUL NEB ONE ×3 (04:47→04:48)
[2017-03-10] MEDS ORDERED: ASPIRIN 325 MG TABLET PO ONE (04:47)
[2017-03-10] MEDS ORDERED: NITROGLYCERIN 0.4 MG/TAB 25 TAB/BOTTLE SL PRN (04:47)
[2017-03-10] MEDS ORDERED: METHYLPREDNISOLONE INJ 125 MG/2 ML SDV IV ONE (04:47)
[2017-03-10] MEDS ORDERED: METHYLPREDNISOLONE INJ 125 MG/2 ML SDV ONE (04:47)
[2017-03-10] MEDS ORDERED: MAGNESIUM SULFATE/D5W 2 GM/200 ML RTUPB IV ONE (04:47)
[2017-03-10] MEDS ORDERED: NITROGLYCERIN/D5W 50 MG/250 ML RTUINJ IV ONE (04:47)
[2017-03-10] MEDS ORDERED: NITROGLYCERIN/D5W 50 MG/250 ML RTUINJ IV PRN (04:47)
[2017-03-10] MEDS: MAGNESIUM SULFATE/D5W 1 GM/100 ML RTUPB IV SCH ×2 (04:48→05:15)
[2017-03-10] MEDS ORDERED: KETAMINE HCL INJ 500 MG/10 ML VIAL ONE (05:00)
[2017-03-10] MEDS ORDERED: PROPOFOL 100 ML IV PRN ×2 (05:01→10:29)
[2017-03-10] MEDS ORDERED: ROCURONIUM BROMIDE INJ 50 MG/5 ML VIAL IV ONE ×2 (05:01→11:36)
[2017-03-10] MEDS ORDERED: KETAMINE HCL INJ 500 MG/10 ML VIAL IV ONE (05:01)
[2017-03-10] MEDS ORDERED: VANCOMYCIN HCL INJ 1000 MG VIAL IV ONE (05:05)
--- NOTE | 2017-03-10 05:05 | ER Document Report ---
ED Respiratory Problem - General Chief Complaint: Respiratory Distress Stated Complaint: RESPIRATORY DISTRESS Time Seen by Provider: 03/10/17 04:59 Notes: Patient is a 61-year-old male comes emergency department by EMS for chief complaint of respiratory distress. EMS found patient on oxygen mask at the longterm with oxygen saturation in the 80s, they placed him on CPAP, he was given 1 DuoNeb treatment without any significant change prior to arrival. Patient is a full code. Past medical history of COPD, on 2 L nasal cannula at longterm, also has a history of CHF and respiratory failure with previous intubation. He was recently discharged from the hospital after being treated for pneumonia. No other history available at this time due to patient's critical condition. TRAVEL OUTSIDE OF THE [place] IN LAST 30 DAYS: No - Related Data Allergies/Adverse Reactions: walnut Allergy (Unknown, Verified 03/10/17 05:00) Past Medical History - General Information source: Patient, Emergency Med Personnel - Social History Smoking Status: Current Every Day Smoker Frequency of alcohol use: None Drug Abuse: None Lives with: Residential Family History: Reviewed & Not Pertinent Patient has suicidal ideation: No Patient has homicidal ideation: No - Past Medical History Cardiac Medical History: Reports: Hx Congestive Heart Failure, Hx Heart Attack Pulmonary Medical History: Reports: Hx COPD Endocrine Medical History: Reports: Hx Diabetes Mellitus Type 2 - insulin dependent Renal/ Medical History: Denies: Hx Peritoneal Dialysis GI Medical History: Reports: Hx Gastroesophageal Reflux Disease Psychiatric Medical History: Reports: Hx Depression Past Surgical History: Reports: Other - unable to obtain - Immunizations Immunizations up to date: Yes Hx Diphtheria, Pertussis, Tetanus Vaccination: Yes Review of Systems - Review of Systems Constitutional: See HPI EENT: No symptoms reported Cardiovascular: See HPI Respiratory: See HPI Gastrointestinal: No symptoms reported Genitourinary: No symptoms reported Male Genitourinary: No symptoms reported Musculoskeletal: No symptoms reported Skin: No symptoms reported Hematologic/Lymphatic: No symptoms reported Neurological/Psychological: No symptoms reported Physical Exam - Vital signs Vitals: Pulse 150 H 03/10/17 04:45 Interpretation: Normal - General General appearance: Anxious In distress: Severe - HEENT Head: Normocephalic, Atraumatic Eyes: Normal Pupils: PERRL - Respiratory Respiratory status: Respiratory distress, Labored, Retractions, Tachypnea Breath sounds: Decreased air movement - Severely decreased breath sounds throughout all lung [place], minimal expiratory wheezing heard - Cardiovascular Rhythm: Regular, Tachycardia Heart sounds: Normal auscultation, S1 appreciated, S2 appreciated Murmur: No - Abdominal Inspection: Normal Distension: No distension Bowel sounds: Normal Tenderness: Nontender Organomegaly: No organomegaly - Back Back: Normal - Extremities General upper extremity: Normal inspection, Nontender, Normal strength General lower extremity: Normal inspection, Nontender, Normal strength - Neurological Neuro grossly intact: Yes Cognition: Normal Orientation: AAOx4 [place] Coma Scale Eye Opening: Spontaneous [place] Coma Scale Verbal: Oriented [place] Coma Scale Motor: Obeys Commands [place] Coma Scale Total: 15 Speech: Normal Motor strength normal: LUE, RUE, LLE, RLE Sensory: Normal - Psychological Associated symptoms: Anxious - Skin Skin Temperature: Warm Skin Moisture: Dry Skin Color: Flushed Course - Re-evaluation Re-evalutation: On initial evaluation patient with severe respiratory distress, gasping for air , retractions, oxygen saturation in the 80s. Tachycardic. Patient was immediately placed on BiPAP, started DuoNeb treatments, Solu-Medrol, magnesium. Patient with extremely decreased lung sounds bilaterally, no obvious rales, no lower extremity edema. He is hypertensive but I suspect this is a COPD exacerbation primarily, however he was given 1 dose of sublingual nitroglycerin. Patient very quickly became tired in appearance, oxygen saturation in the upper 90s but he is now becoming cyanotic around the lips and in the face, proceeding with intubation to protect airway, Dr. Farley to came to bedside. Intubation performed without any complications, covering with antibiotics because of recent admission, workup pending. 03/10/17 05:15 No obvious pneumonia on quick read for the x-ray, no obvious vascular congestion either. Temperature Fisher placed, temperature found to be 102.5, testing for influenza, Tylenol given. Blood pressure stable, still tachycardic, otherwise unchanged. Still has good sedation with propofol at 20, not needing ketamine at this time, will avoid if possible because of tachycardia. Confirmed with Dr. Farley. 03/10/17 06:00 Venous blood gas consistent with acute respiratory failure. Chest x-ray unremarkable. Influenza was positive, apparently we do not have IV Tamiflu, giving through NG tube. Troponin indeterminate, BNP nonspecific, chemistry shows hyponatremia but is generally nonspecific. 03/10/17 06:10 Called for admission, pending call back. 03/10/17 06:[address] Amezcua, internal medicine, patient will be admitted to the ICU. 03/10/17 06:[address] Naidu is actually now patient's primary care provider. Updated Dr. Amezcua. Spoke with Dr. Hughes, cotton gin yard supervisor for Dr. Naidu, patient will be admitted to the ICU - Vital Signs Vital signs: Temp Pulse Resp BP Pulse Ox 150 H 16 129/74 H 92 03/10/17 04:45 03/10/17 06:01 03/10/17 06:00 03/10/17 06:01 - Laboratory Result Diagrams: 03/10/17 04:43 03/10/17 04:43 Laboratory results interpreted by me: 03/10/17 03/10/17 03/10/17 04:43 04:43 04:43 WBC 21.0 H RDW 14.8 H Abs Neuts (Manual) 11.8 H Abs Lymphs (Manual) 7.8 H Abs Monocytes (Manual) 1.5 H VBG pH VBG pCO2 Sodium 128.0 L Potassium 5.5 H Chloride 94 L Carbon Dioxide 21 L Glucose 261 H POC Glucose Creatine Kinase 52 L NT-Pro-B Natriuret Pep 3200 H Digoxin 03/10/17 03/10/17 03/10/17 04:43 04:43 06:01 WBC RDW Abs Neuts (Manual) Abs Lymphs (Manual) Abs Monocytes (Manual) VBG pH 7.14 L* VBG pCO2 79.5 H* Sodium Potassium Chloride Carbon Dioxide Glucose POC Glucose 271 H Creatine Kinase NT-Pro-B Natriuret Pep Digoxin 0.65 L Procedures - Intubation Orotracheal Time of Intubation: 05:00 Airway evaluation: Normal anatomy, Other - missing teeth Mallampati Classification: Class 1 Medications: Etomidate, Ketamine Intubation method: Orotracheal Blade type: Catie Blade size: 3 Equipment used: Glidescope ETT size: 8.0 ETT secured at: Gums ETT secured at (cm): 26 Breath Sounds after Intubation: Equal End tidal CO2 confirmed: Yes Ventilator settings: SIMV Post Intubation Xray: Yes Intubation Complications: No complications Critical Care Note - Critical Care Note Total time excluding time spent on procedures (mins): 45 - Acute respiratory failure Comments: Please allow 45 minutes of critical care time excluding any procedures for evaluation and management of patient with acute respiratory failure, multiple re -evaluations, treatment for COPD exacerbation, coverage for pneumonia, monitoring on ventilator, treatment for influenza, consultation and admission to the ICU. Discharge - Discharge Clinical Impression: Influenza A, COPD exacerbation, Hyponatremia Acute respiratory failure Qualifiers: Respiratory failure complication: hypoxia and hypercapnia Qualified Code(s): J96.01 - Acute respiratory failure with hypoxia Leucocytosis Qualifiers: Leukocytosis type: unspecified Qualified Code(s): D72.829 - Elevated white blood cell count, unspecified Condition: Critical Disposition: ADMITTED INPATIENT Admitting Provider: [facility] Admitted: ICU Referrals: CONSTANCE NAIDU MD [Primary Care Provider] - Follow up as needed
[2017-03-10] MEDS ORDERED: PIPERACILLIN/TAZOBACTAM 3.375 GM VIAL IV ONE (05:06)
[2017-03-10 05:10] LABS: HEMATOCRIT 43.2 % (37.9-51.0); HEMOGLOBIN 14.4 g/dL (13.5-17.0); MEAN CORPUSCULAR HEMOGLOBIN 32.2 pg (27.0-33.4); MEAN CORPUSCULAR HGB CONC 33.2 g/dL (32.0-36.0); MEAN CORPUSCULAR VOLUME 97 fl (80-97); PLATELET COUNT 383 10^3/uL (150-450); RED BLOOD COUNT 4.45 10^6/uL (4.35-5.55); RED CELL DISTRIBUTION WIDTH 14.8 % (11.5-14.0)
[2017-03-10] MEDS ORDERED: ACETAMINOPHEN 325 MG SUPP.RECT PR ONE (05:17)
[2017-03-10 05:27] LABS: VENOUS BLOOD BASE EXCESS -4.3 mmol/L; VENOUS BLOOD HCO3 26.6 mmol/L (20-32)
[2017-03-10 05:29] LABS: VENOUS BLOOD PCO2 79.5 mmHg (35-63); VENOUS BLOOD PH 7.14 (7.30-7.42)
[2017-03-10 05:32] LABS: ABSOLUTE LYMPHOCYTES# (MANUAL) 7.8 10^3/uL (0.5-4.7); ABSOLUTE MONOCYTES # (MANUAL) 1.5 10^3/uL (0.1-1.4); ABSOLUTE NEUTROPHILS# (MANUAL) 11.8 10^3/uL (1.7-8.2); BASOPHILS % (MANUAL) 0 % (0-2); EOSINOPHILS % (MANUAL) 0 % (0-6); LYMPHOCYTES % (MANUAL) 36 % (13-45); MONOCYTES % (MANUAL) 7 % (3-13); SEGMENTED NEUTROPHILS % (MAN) 56 % (42-78); TOTAL CELLS COUNTED 100
[2017-03-10 05:33] LABS: PLATELET CLUMPS PRESENT; PLATELET COMMENT ADEQUATE
[2017-03-10 05:34] LABS: PLATELET LARGE PRESENT
[2017-03-10 05:35] LABS: ANISOCYTOSIS SLIGHT; BURR CELLS SLIGHT; POIKILOCYTOSIS SLIGHT
[2017-03-10 05:36] LABS: TOXIC GRANULATION SLIGHT; TOXIC VACUOLATION PRESENT
[2017-03-10 05:44] LABS: TROPONIN I 0.021 ng/mL
[2017-03-10 05:55] LABS: A TYPE INFLUENZA AG POSITIVE (NEGATIVE); B INFLUENZA AG NEGATIVE (NEGATIVE)
--- NOTE | 2017-03-10 05:56 | RADIOLOGY REPORT (SQ) ---
EXAM DESCRIPTION: CHEST SINGLE VIEW CLINICAL HISTORY: 61 years, Male, POST INTUBATION COMPARISON: 02/16/2017. LIMITATIONS: None. FINDINGS: Mild interstitial markings, normal cardiac silhouette, adequate appearing endotracheal tube, and likely adequate enteric tube obscured distally. No pneumothorax. Intact bony thorax. IMPRESSION: Interval intubation. Else, stable. 2010 [employer]- All Rights Reserved
[2017-03-10] MEDS ORDERED: OSELTAMIVIR PHOSPHATE 75 MG CAPSULE PO ONE (06:00)
[2017-03-10 06:02] LABS: ALANINE AMINOTRANSFERASE 52 U/L (21-72); ALBUMIN 3.9 g/dL (3.5-5.0); ALKALINE PHOSPHATASE 126 U/L (38-126); ANION GAP 13 (5-19); ASPARTATE AMINO TRANSFERASE 31 U/L (17-59); BILIRUBIN,DIRECT 0.3 mg/dL (0.0-0.4); BILIRUBIN,TOTAL 0.5 mg/dL (0.2-1.3); BLOOD UREA NITROGEN 13 mg/dL (7-20); CALCIUM 9.1 mg/dL (8.4-10.2); CARBON DIOXIDE 21 mmol/L (22-30); CHLORIDE 94 mmol/L (98-107); CREATINE KINASE 52 U/L (55-170); GLUCOSE 261 mg/dL (75-110); POTASSIUM 5.5 mmol/L (3.6-5.0); TOTAL PROTEIN 6.8 g/dL (6.3-8.2)
[2017-03-10 06:34] LABS: AMORPHOUS SEDIMENT,URINE TRACE /HPF; APPEARANCE,URINE SLIGHTLY-CLOUDY; BILIRUBIN,URINE NEGATIVE (NEGATIVE); COLOR,URINE YELLOW; GLUCOSE, URINE 50 mg/dL (NEGATIVE); KETONES,URINE NEGATIVE (NEGATIVE); LEUKOCYTE ESTERASE,URINE MODERATE (NEGATIVE); NITRITE,URINE NEGATIVE (NEGATIVE); PROTEIN,URINE 100 mg/dL (NEGATIVE); URINE SPECIFIC GRAVITY 1.011; UROBILINOGEN,URINE NEGATIVE mg/dL (<2.0)
[2017-03-10] MEDS ORDERED: VANCOMYCIN HCL 0 MG in DEXTROSE 5%-WATER 250 ML IV NR (10:45)
--- NOTE | 2017-03-10 10:53 | PDOC H&P ---
History of Present Illness Admission Date/PCP: 03/10/17 06:27 CONSTANCE NAIDU MD Patient complains of: Difficulty with breathing History of Present Illness: TAMMY RICHARDS is a 61 year old male patient of Dr Naidu who presented to the ED via EMS service from local SNF with worsening difficulty with breathing. Patient has history of oxygen dependent COPD and recently hospitalized for Pneumonia. Despite administration of bronchodilators and supportive therapy with CPAP he did not show any improvement. He was eventually intubated and vent supported while in the ED. He was found to have Influenza A virus infection. 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 Past Medical History Cardiac Medical History: Reports: Congestive Heart Failure, Myocardial Infarction Pulmonary Medical History: Reports: Chronic Obstructive Pulmonary Disease (COPD) Endocrine Medical History: Reports: Diabetes Mellitus Type 1, Diabetes Mellitus Type 2 - insulin dependent GI Medical History: Reports: Gastroesophageal Reflux Disease Psychiatric Medical History: Reports: Depression Past Surgical History Past Surgical History: Reports: Other - unable to obtain Social History Lives with: Longterm Smoking Status: Current Every Day Smoker Frequency of Alcohol Use: Occasional Hx Recreational Drug Use: No - unable to obtain Drugs: Cocaine Hx Prescription Drug Abuse: No Family History Family History: Reviewed & Not Pertinent Parental Family History Reviewed: Yes Children Family History Reviewed: Yes Sibling(s) Family History Reviewed.: Yes Medication/Allergy Allergies/Adverse Reactions: walnut Allergy (Unknown, Verified 03/10/17 05:00) Review of Systems ROS unobtainable: Due to endotracheal tube Physical Exam Vital Signs: Temp Pulse Resp BP Pulse Ox 97.3 F 92 21 H 92/70 L 100 03/10/17 10:11 03/10/17 10:11 03/10/17 10:11 03/10/17 10:11 03/10/17 10:11 Intake & Output 03/09/17 03/10/17 03/11/17 06:59 06:59 06:59 Weight 70.2 kg Physical Exam: Intubated and vent supported OG tube in situ. Head exam: PRESENT: atraumatic, normocephalic Eye exam: PRESENT: PERRLA Mouth exam: PRESENT: moist - ET/OG tubes in situ Respiratory exam: PRESENT: decreased breath sounds, rhonchi, wheezes Vascular exam: PRESENT: normal capillary refill. ABSENT: pallor GI/Abdominal exam: PRESENT: normal bowel sounds, soft. ABSENT: distended, guarding, mass, organolmegaly, rebound, tenderness Rectal exam: PRESENT: deferred Gentrourinary exam: PRESENT: indwelling catheter Extremities exam: ABSENT: pedal edema Musculoskeletal exam: PRESENT: normal inspection Neurological exam: PRESENT: altered - sedated on IV Propofol Psychiatric exam: PRESENT: other - sedated on IV Propofol Skin exam: PRESENT: dry, warm Results Impressions: Chest X-Ray 03/10/17 04:46 IMPRESSION: Interval intubation. Else, stable. 2010 [employer]- All Rights Reserved Assessment & Plan - Diagnosis (1) COPD exacerbation Is this a current diagnosis for this admission?: Yes Plan: See covering admitting physician orders. (2) Acute hypercapnic respiratory failure Plan: See covering admitting physician orders. (3) Influenza A Is this a current diagnosis for this admission?: Yes Plan: See covering admitting physician orders. (4) Diabetes mellitus type 2 in nonobese Is this a current diagnosis for this admission?: Yes Plan: See covering admitting physician orders. - Time Time Spent: 50 to 70 Minutes Medications reviewed and adjusted accordingly: Yes Anticipated discharge: SNF Within: Other - Inpatient Certification Based on my medical assessment, after consideration of the patient's comorbidities, presenting symptoms, or acuity I expect that the services needed warrant INPATIENT care.: Yes I certify that my determination is in accordance with my understanding of Medicare's requirements for reasonable and necessary INPATIENT services [42 CFR 412.3e].: Yes Medical Necessity: Need Close Monitoring Due to Risk of Patient Decompensation, Need For IV Fluids, Need For Continuous Telemetry Monitoring, Need for Nebulizer Therapy and Monitoring of Response, Need for IV Antibiotics, Risk of Complication if Not Cared For in Hospital Post Hospital Care: D/C or Transfer Summary - Plan Summary Plan Summary: See covering admitting physician orders.
[2017-03-10] MEDS ORDERED: ENOXAPARIN SODIUM INJ 40 MG/0.4 ML DISP.SYRIN SUBCUT ONE (11:00)
[2017-03-10] MEDS ORDERED: DEXTROSE 40% GEL 15 GM TUBE PO PRN ×2 (11:05)
[2017-03-10] MEDS ORDERED: DEXTROSE 50%-WATER 25 GM/50 ML DISP.SYRIN IV PRN ×2 (11:05)
[2017-03-10] MEDS ORDERED: GLUCAGON,HUMAN RECOMB 1 MG INJ IM PRN (11:05)
[2017-03-10 11:44] LABS: ARTERIAL BLOOD BASE EXCESS -6.8 mmol/L; ARTERIAL BLOOD H2CO3 0.99 mmol/L (1.05-1.35); ARTERIAL BLOOD HCO3 17.9 mmol/L (20-26); ARTERIAL BLOOD O2 SATURATION 99.3 % (94-98); ARTERIAL BLOOD PH 7.35 (7.35-7.45); ARTERIAL BLOOD PO2 189.4 mmHg (80-100); ARTERIAL BLOOD TOTAL CO2 18.9 mmol/L (23-27)
[2017-03-10 11:45] LABS: ARTERIAL BLOOD FIO2 50%
[2017-03-10 13:03] LABS: ARTERIAL BLOOD BASE EXCESS -4.9 mmol/L; ARTERIAL BLOOD H2CO3 1.13 mmol/L (1.05-1.35); ARTERIAL BLOOD HCO3 20.2 mmol/L (20-26); ARTERIAL BLOOD O2 SATURATION 96.7 % (94-98); ARTERIAL BLOOD PCO2 37.5 mmHg (35-45); ARTERIAL BLOOD PH 7.35 (7.35-7.45); ARTERIAL BLOOD PO2 91.7 mmHg (80-100); ARTERIAL BLOOD TOTAL CO2 21.3 mmol/L (23-27)
[2017-03-10 13:07] LABS: ARTERIAL BLOOD FIO2 30%
[2017-03-10] MEDS: PIPERACILLIN SODIUM/TAZOBACTAM 3.375 GM in NORMAL SALINE 100 ML IV SCH ×2 (13:39→17:27)
[2017-03-10] MEDS: METHYLPREDNISOLONE INJ 125 MG/2 ML SDV IV SCH (13:40)
[2017-03-10] MEDS: IPRATROPIUM/ALBUTEROL 120 PUFF/4 GM MDI IH SCH ×2 (13:41→17:28)
[2017-03-10] MEDS: MIDAZOLAM 2 MG/2 ML INJ IV PRN (15:26)
[2017-03-10 15:28] LABS: INTERNATIONAL RATION (INR) 1.01; PARTIAL THROMBOPLASTIN TIME 38.8 SEC (23.5-35.8)
[2017-03-10] MEDS: OSELTAMIVIR PHOSPHATE 6 MG/1 ML SUSP 60 ML PO SCH (17:27)
--- NOTE | 2017-03-10 17:59 | PDOC PROGRESS REPORT ---
Subjective Progress Note for:: 03/10/17 Subjective:: intubated Reason For Visit: COPD EXACERBATION,RESPIRATORY FAILURE,INFLUENZA Physical Exam Vital Signs: Temp Pulse Resp BP Pulse Ox 97.0 F 88 22 H 96/69 L 98 03/10/17 16:00 03/10/17 16:00 03/10/17 16:00 03/10/17 16:00 03/10/17 16:27 Intake & Output 03/09/17 03/10/17 03/11/17 06:59 06:59 06:59 Output Total 620 Balance -620 Weight 70.2 kg General appearance: PRESENT: no acute distress, disheveled, thin. ABSENT: cooperative, mild distress, morbidly obese, obese, severe distress Head exam: PRESENT: atraumatic, normocephalic Eye exam: PRESENT: conjunctiva pale. ABSENT: conjunctival injection, conjunctiva pink, nystagmus, periorbital swelling, scleral icterus Mouth exam: PRESENT: dry mucosa, neck supple, tongue midline, other - ET tube. ABSENT: laceration, moist Neck exam: ABSENT: carotid bruit, JVD, lymphadenopathy, thyromegaly, tracheal deviation, tracheostomy Respiratory exam: PRESENT: decreased breath sounds, prolonged expiratory phas, rhonchi, symmetrical, unlabored, wheezes. ABSENT: accessory muscle use, chest wall tenderness, clear to auscultation vangie, crackles, rales, retraction, stridor , tachypnea Cardiovascular exam: PRESENT: RRR, +S1, +S2 Pulses: PRESENT: normal radial pulses GI/Abdominal exam: PRESENT: diminished bowel sounds, soft Extremities exam: ABSENT: clubbing, joint swelling Musculoskeletal exam: ABSENT: ambulatory, deformity, dislocation Neurological exam: ABSENT: alert, awake Skin exam: PRESENT: dry, warm Results Laboratory Results: 03/10/17 03/10/17 11:30 12:50 Carbonic Acid 0.99 L 1.13 HCO3/H2CO3 Ratio 18:1 17:1 ABG pH 7.35 7.35 ABG pCO2 33.0 L 37.5 ABG pO2 189.4 H 91.7 ABG HCO3 17.9 L 20.2 ABG O2 Saturation 99.3 H 96.7 ABG Base Excess -6.8 -4.9 FiO2 50% 30% Impressions: Chest X-Ray 03/10/17 04:46 IMPRESSION: Interval intubation. Else, stable. 2010 [employer]- All Rights Reserved Assessment & Plan - Diagnosis (1) COPD exacerbation Is this a current diagnosis for this admission?: Yes Plan: Generic Name Dose Route Start Last Admin Trade Name Freq PRN Reason Stop Dose Admin Methylprednisolone Sodium Succinate 125 mg 03/10/17 14:00 03/10/17 13:40 Solu-Medrol Inj/Pf 125 Mg/2 Ml Sdv IV 04/09/17 13:59 125 mg Q8 MAICOL Albuterol/Ipratropium 1 puff 03/10/17 12:00 03/10/17 17:28 Combivent Respimat 4 Gm Mdi IH 04/09/17 11:59 Not Given Q6 MAICOL (2) Hyponatremia Is this a current diagnosis for this admission?: Yes (3) Influenza A Is this a current diagnosis for this admission?: Yes Plan: tamiflu (4) Acute hypercapnic respiratory failure Is this a current diagnosis for this admission?: Yes Plan: increase min vol - Time Total Critical Time (Minutes): 40
--- NOTE | 2017-03-10 19:47 | EKG REPORT ---
SEVERITY:- ABNORMAL ECG - SINUS TACHYCARDIA ST ELEVATION, CONSIDER ANTERIOR INJURY PROLONGED QT INTERVAL ST DEPRESSION INFERIOR LEADS : Confirmed by: Al Xiong 10-Mar-2017 19:47:32
[2017-03-11] MEDS: IPRATROPIUM/ALBUTEROL 120 PUFF/4 GM MDI IH SCH ×4 (01:39→19:02)
[2017-03-11] MEDS: VANCOMYCIN HCL 1,000 MG in DEXTROSE 5%-WATER 250 ML IV SCH ×3 (05:13→21:56)
[2017-03-11] MEDS: MIDAZOLAM 2 MG/2 ML INJ IV PRN ×2 (05:14→21:17)
[2017-03-11] MEDS: PIPERACILLIN SODIUM/TAZOBACTAM 3.375 GM in NORMAL SALINE 100 ML IV SCH ×5 (05:14→23:15)
[2017-03-11] MEDS ORDERED: LANSOPRAZOLE 30 MG TAB.RAP.DR PO SCH (06:00)
[2017-03-11 06:28] LABS: ABSOLUTE LYMPHOCYTES (AUTO) 2.6 10^3/uL (0.5-4.7); ABSOLUTE MONOCYTES (AUTO) 0.6 10^3/uL (0.1-1.4); ABSOLUTE NEUT (AUTO) 16.4 10^3/uL (1.7-8.2); BASOPHILS % (AUTO) 0.2 % (0-2); HEMATOCRIT 34.5 % (37.9-51.0); LYMPHOCYTES % (AUTO) 13.2 % (13-45); MEAN CORPUSCULAR HEMOGLOBIN 31.8 pg (27.0-33.4); MEAN CORPUSCULAR HGB CONC 33.6 g/dL (32.0-36.0); MEAN CORPUSCULAR VOLUME 95 fl (80-97); MONOCYTES % (AUTO) 3.3 % (3-13); PLATELET COUNT 225 10^3/uL (150-450); RED BLOOD COUNT 3.65 10^6/uL (4.35-5.55); RED CELL DISTRIBUTION WIDTH 14.7 % (11.5-14.0); SEGMENTED NEUTROPHILS % (AUTO) 83.3 % (42-78); TOTAL CELLS COUNTED % (AUTO) 100 %; WHITE BLOOD COUNT 19.7 10^3/uL (4.0-10.5)
[2017-03-11 06:30] LABS: HEMOGLOBIN 11.6 g/dL (13.5-17.0)
[2017-03-11 06:43] LABS: ALANINE AMINOTRANSFERASE 40 U/L (21-72); ALBUMIN 2.9 g/dL (3.5-5.0); ALKALINE PHOSPHATASE 69 U/L (38-126); ANION GAP 10 (5-19); ASPARTATE AMINO TRANSFERASE 25 U/L (17-59); BILIRUBIN,DIRECT 0.2 mg/dL (0.0-0.4); BILIRUBIN,TOTAL 0.2 mg/dL (0.2-1.3); BLOOD UREA NITROGEN 16 mg/dL (7-20); CALCIUM 8.1 mg/dL (8.4-10.2); CARBON DIOXIDE 19 mmol/L (22-30); CHLORIDE 105 mmol/L (98-107); GLUCOSE 145 mg/dL (75-110); POTASSIUM 4.7 mmol/L (3.6-5.0); SODIUM 133.9 mmol/L (137-145); TOTAL PROTEIN 5.5 g/dL (6.3-8.2)
[2017-03-11 08:18] LABS: ARTERIAL BLOOD BASE EXCESS -4.7 mmol/L; ARTERIAL BLOOD H2CO3 1.04 mmol/L (1.05-1.35); ARTERIAL BLOOD HCO3 19.7 mmol/L (20-26); ARTERIAL BLOOD O2 SATURATION 98.4 % (94-98); ARTERIAL BLOOD PCO2 34.4 mmHg (35-45); ARTERIAL BLOOD PH 7.38 (7.35-7.45); ARTERIAL BLOOD PO2 121.9 mmHg (80-100); ARTERIAL BLOOD TOTAL CO2 20.7 mmol/L (23-27)
[2017-03-11 08:24] LABS: ARTERIAL BLOOD FIO2 35%
[2017-03-11] MEDS: METHYLPREDNISOLONE INJ 125 MG/2 ML SDV IV SCH ×3 (08:25→21:39)
[2017-03-11] MEDS: NORMAL SALINE 1000 ML 1,000 ML IV PRN ×2 (08:36→19:59)
[2017-03-11] MEDS: OSELTAMIVIR PHOSPHATE 6 MG/1 ML SUSP 60 ML PO SCH (10:07)
[2017-03-11] MEDS: ENOXAPARIN SODIUM INJ 40 MG/0.4 ML DISP.SYRIN SUBCUT SCH (10:09)
--- NOTE | 2017-03-11 17:13 | PDOC PROGRESS REPORT ---
Subjective Progress Note for:: 03/11/17 Subjective:: Awake alert Reason For Visit: COPD EXACERBATION,RESPIRATORY FAILURE,INFLUENZA Physical Exam Vital Signs: Temp Pulse Resp BP Pulse Ox 97.2 F 82 16 124/76 100 03/11/17 08:00 03/11/17 09:17 03/11/17 08:05 03/11/17 08:05 03/11/17 08:05 Intake & Output 03/10/17 03/11/17 03/12/17 06:59 06:59 06:59 Output Total 1340 400 Balance -1340 -400 Weight 70.2 kg General appearance: PRESENT: no acute distress, cooperative, disheveled, obese. ABSENT: mild distress, morbidly obese, severe distress Head exam: PRESENT: atraumatic, normocephalic Eye exam: PRESENT: conjunctiva pale, EOMI. ABSENT: conjunctival injection, conjunctiva pink, nystagmus, periorbital swelling, scleral icterus Mouth exam: PRESENT: dry mucosa, neck supple, tongue midline. ABSENT: laceration, moist Neck exam: ABSENT: carotid bruit, JVD, lymphadenopathy, thyromegaly, tracheal deviation, tracheostomy Respiratory exam: PRESENT: decreased breath sounds, prolonged expiratory phas, rales, rhonchi, symmetrical, unlabored, wheezes. ABSENT: accessory muscle use, chest wall tenderness, clear to auscultation vangie, crackles, retraction, stridor , tachypnea Cardiovascular exam: PRESENT: RRR, +S1, +S2, tachycardia Pulses: PRESENT: normal radial pulses GI/Abdominal exam: PRESENT: diminished bowel sounds, soft Extremities exam: ABSENT: calf tenderness, clubbing, joint swelling Musculoskeletal exam: ABSENT: deformity, dislocation Neurological exam: PRESENT: alert, awake Skin exam: PRESENT: dry, warm Results Laboratory Results: 03/11/17 06:11 03/11/17 06:11 03/10/17 03/10/17 03/11/17 11:30 12:50 06:11 WBC 19.7 H RBC 3.65 L Hgb 11.6 L D Hct 34.5 L MCV 95 MCH 31.8 MCHC 33.6 RDW 14.7 H Plt Count 225 Seg Neutrophils % 83.3 H Lymphocytes % 13.2 Monocytes % 3.3 Eosinophils % 0.0 Basophils % 0.2 Absolute Neutrophils 16.4 H Absolute Lymphocytes 2.6 Absolute Monocytes 0.6 Absolute Eosinophils 0.0 Absolute Basophils 0.0 Carbonic Acid 0.99 L 1.13 HCO3/H2CO3 Ratio 18:1 17:1 ABG pH 7.35 7.35 ABG pCO2 33.0 L 37.5 ABG pO2 189.4 H 91.7 ABG HCO3 17.9 L 20.2 ABG O2 Saturation 99.3 H 96.7 ABG Base Excess -6.8 -4.9 FiO2 50% 30% Sodium Potassium Chloride Carbon Dioxide Anion Gap BUN Creatinine Est GFR ( Amer) Est GFR (Non-Af Amer) Glucose Calcium Total Bilirubin AST ALT Alkaline Phosphatase Total Protein Albumin 03/11/17 03/11/17 06:11 08:00 WBC RBC Hgb Hct MCV MCH MCHC RDW Plt Count Seg Neutrophils % Lymphocytes % Monocytes % Eosinophils % Basophils % Absolute Neutrophils Absolute Lymphocytes Absolute Monocytes Absolute Eosinophils Absolute Basophils Carbonic Acid 1.04 L HCO3/H2CO3 Ratio 18:1 ABG pH 7.38 ABG pCO2 34.4 L ABG pO2 121.9 H ABG HCO3 19.7 L ABG O2 Saturation 98.4 H ABG Base Excess -4.7 FiO2 35% Sodium 133.9 L Potassium 4.7 Chloride 105 Carbon Dioxide 19 L Anion Gap 10 BUN 16 Creatinine 0.62 Est GFR ( Amer) > 60 Est GFR (Non-Af Amer) > 60 Glucose 145 H Calcium 8.1 L Total Bilirubin 0.2 AST 25 ALT 40 Alkaline Phosphatase 69 Total Protein 5.5 L Albumin 2.9 L Impressions: Chest X-Ray 03/10/17 04:46 IMPRESSION: Interval intubation. Else, stable. 2010 [employer]- All Rights Reserved Assessment & Plan - Diagnosis (1) COPD exacerbation Is this a current diagnosis for this admission?: Yes Plan: Extubated improved continue current therapy (2) Hyponatremia Is this a current diagnosis for this admission?: Yes Plan: Labs- All tests 24 hr 03/10/17 04:43 Sodium 128.0 L Labs- All tests 24 hr 03/11/17 06:11 Sodium 133.9 L (3) Influenza A Is this a current diagnosis for this admission?: Yes Plan: tamiflu (4) Acute hypercapnic respiratory failure Is this a current diagnosis for this admission?: Yes Plan: No longer intubated stable at this time
[2017-03-11] MEDS ORDERED: FUROSEMIDE INJ/PF 20 MG/2 ML SDV ONE (17:58)
[2017-03-11] MEDS ORDERED: LEVALBUTEROL HCL NEB 1.25 MG/3 ML AMPUL NEB ONE ×2 (18:00→20:00)
[2017-03-11 18:08] LABS: ARTERIAL BLOOD BASE EXCESS -8.8 mmol/L; ARTERIAL BLOOD H2CO3 1.86 mmol/L (1.05-1.35); ARTERIAL BLOOD O2 SATURATION 97.7 % (94-98); ARTERIAL BLOOD PCO2 61.8 mmHg (35-45); ARTERIAL BLOOD PO2 130.9 mmHg (80-100); ARTERIAL BLOOD TOTAL CO2 22.9 mmol/L (23-27)
[2017-03-11 18:12] LABS: ARTERIAL BLOOD FIO2 15L; ARTERIAL BLOOD PH 7.15 (7.35-7.45)
[2017-03-11] MEDS ORDERED: PHARMACY COMMUNICATION ORDER MC NR (18:30)
--- NOTE | 2017-03-11 18:34 | EKG REPORT ---
SEVERITY:- ABNORMAL ECG - SINUS TACHYCARDIA PROBABLE LEFT ATRIAL ABNORMALITY REPOL ABNRM SUGGESTS ISCHEMIA, LATERAL LEADS : Confirmed by: Al Xiong 11-Mar-2017 18:34:15
[2017-03-11] MEDS ORDERED: PROPOFOL 100 ML IV ONE (18:36)
[2017-03-11] MEDS ORDERED: PROPOFOL INJ 200 MG/20 ML VIAL IV ONE (19:00)
[2017-03-11 19:18] LABS: CREATINE KINASE MB 4.5 ng/mL (<4.55); TROPONIN I 0.055 ng/mL
--- NOTE | 2017-03-11 19:22 | RADIOLOGY REPORT (SQ) ---
EXAM DESCRIPTION: CHEST SINGLE VIEW COMPLETED DATE/TIME: 03/11/2017 7:05 pm REASON FOR STUDY: ET tube placement COMPARISON: 03/10/2017. EXAM PARAMETERS: NUMBER OF VIEWS: One view. TECHNIQUE: Single frontal radiographic view of the chest acquired. RADIATION DOSE: NA LIMITATIONS: None. FINDINGS: LUNGS AND PLEURA: Increasing parenchymal density in the right lower lobe. MEDIASTINUM AND HILAR STRUCTURES: No masses. Contour normal. HEART AND VASCULAR STRUCTURES: Heart normal in size. Normal vasculature. BONES: No acute findings. HARDWARE: Tip of the endotracheal tube located 5.5 cm proximal to the la. Nasogastric tube with the tip apparently in the stomach although not included on the image. OTHER: No other significant finding. IMPRESSION: LIFE LINES DESCRIBED. INCREASING PARENCHYMAL DENSITY IN THE RIGHT LOWER LOBE SUSPICI OUS FOR PNEUMONIA. TECHNICAL DOCUMENTATION: JOB ID: [id number] [employer]- All Rights Reserved
[2017-03-11 20:01] LABS: ARTERIAL BLOOD BASE EXCESS -8.2 mmol/L; ARTERIAL BLOOD H2CO3 1.97 mmol/L (1.05-1.35); ARTERIAL BLOOD HCO3 21.7 mmol/L (20-26); ARTERIAL BLOOD O2 SATURATION 99.5 % (94-98); ARTERIAL BLOOD PCO2 65.5 mmHg (35-45); ARTERIAL BLOOD PO2 305.6 mmHg (80-100); ARTERIAL BLOOD TOTAL CO2 23.8 mmol/L (23-27)
[2017-03-11 20:02] LABS: ARTERIAL BLOOD FIO2 90%
[2017-03-11 20:03] LABS: ARTERIAL BLOOD PH 7.14 (7.35-7.45)
[2017-03-11] MEDS: PROPOFOL 100 ML IV PRN (21:13)
[2017-03-11 22:08] LABS: ARTERIAL BLOOD BASE EXCESS -5.2 mmol/L; ARTERIAL BLOOD H2CO3 1.04 mmol/L (1.05-1.35); ARTERIAL BLOOD HCO3 19.4 mmol/L (20-26); ARTERIAL BLOOD O2 SATURATION 99.8 % (94-98); ARTERIAL BLOOD PCO2 34.5 mmHg (35-45); ARTERIAL BLOOD PH 7.37 (7.35-7.45); ARTERIAL BLOOD PO2 401.3 mmHg (80-100); ARTERIAL BLOOD TOTAL CO2 20.4 mmol/L (23-27)
[2017-03-11 22:09] LABS: ARTERIAL BLOOD FIO2 80%
--- NOTE | 2017-03-11 22:24 | PDOC PROGRESS REPORT ---
Subjective Progress Note for:: 03/11/17 Subjective:: Patient was admitted over the weekend with acute respiratory failure requiring mechanical ventilation He extubated himself ,started on noninvasive positive pressure ventilation with BiPAP Reason For Visit: COPD EXACERBATION,RESPIRATORY FAILURE,INFLUENZA Physical Exam Vital Signs: Temp Pulse Resp BP Pulse Ox 97.3 F 89 17 134/91 H 100 03/11/17 21:33 03/11/17 14:00 03/11/17 19:04 03/11/17 19:04 03/11/17 19:04 Intake & Output 03/10/17 03/11/17 03/12/17 06:59 06:59 06:59 Intake Total 2600 Output Total 1340 1822 Balance -1340 778 Weight 70.2 kg General appearance: PRESENT: mild distress Eye exam: PRESENT: PERRLA Respiratory exam: PRESENT: wheezes Cardiovascular exam: PRESENT: +S1, +S2 GI/Abdominal exam: PRESENT: soft Neurological exam: PRESENT: alert Results Laboratory Results: 03/11/17 06:11 03/11/17 06:11 03/11/17 03/11/17 03/11/17 06:11 06:11 08:00 WBC 19.7 H RBC 3.65 L Hgb 11.6 L D Hct 34.5 L MCV 95 MCH 31.8 MCHC 33.6 RDW 14.7 H Plt Count 225 Seg Neutrophils % 83.3 H Lymphocytes % 13.2 Monocytes % 3.3 Eosinophils % 0.0 Basophils % 0.2 Absolute Neutrophils 16.4 H Absolute Lymphocytes 2.6 Absolute Monocytes 0.6 Absolute Eosinophils 0.0 Absolute Basophils 0.0 Carbonic Acid 1.04 L HCO3/H2CO3 Ratio 18:1 ABG pH 7.38 ABG pCO2 34.4 L ABG pO2 121.9 H ABG HCO3 19.7 L ABG O2 Saturation 98.4 H ABG Base Excess -4.7 FiO2 35% Sodium 133.9 L Potassium 4.7 Chloride 105 Carbon Dioxide 19 L Anion Gap 10 BUN 16 Creatinine 0.62 Est GFR ( Amer) > 60 Est GFR (Non-Af Amer) > 60 Glucose 145 H Calcium 8.1 L Total Bilirubin 0.2 AST 25 ALT 40 Alkaline Phosphatase 69 Total Protein 5.5 L Albumin 2.9 L 03/11/17 03/11/17 03/11/17 17:55 19:52 22:01 WBC RBC Hgb Hct MCV MCH MCHC RDW Plt Count Seg Neutrophils % Lymphocytes % Monocytes % Eosinophils % Basophils % Absolute Neutrophils Absolute Lymphocytes Absolute Monocytes Absolute Eosinophils Absolute Basophils Carbonic Acid 1.86 H 1.97 H 1.04 L HCO3/H2CO3 Ratio 11:1 11:1 18:1 ABG pH 7.15 L* 7.14 L* 7.37 ABG pCO2 61.8 H 65.5 H 34.5 L ABG pO2 130.9 H 305.6 H 401.3 H ABG HCO3 21.0 21.7 19.4 L ABG O2 Saturation 97.7 99.5 H 99.8 H ABG Base Excess -8.8 -8.2 -5.2 FiO2 15L 90% 80% Sodium Potassium Chloride Carbon Dioxide Anion Gap BUN Creatinine Est GFR ( Amer) Est GFR (Non-Af Amer) Glucose Calcium Total Bilirubin AST ALT Alkaline Phosphatase Total Protein Albumin 03/11/17 03/11/17 18:34 18:34 Creatine Kinase 80 CK-MB (CK-2) 4.50 Troponin I 0.055 Impressions: Chest X-Ray 03/11/17 00:00 IMPRESSION: LIFE LINES DESCRIBED. INCREASING PARENCHYMAL DENSITY IN THE RIGHT LOWER LOBE SUSPICIOUS FOR PNEUMONIA. Assessment & Plan - Diagnosis (1) Acute respiratory failure Qualifiers: Respiratory failure complication: hypoxia and hypercapnia Qualified Code(s) : J96.01 - Acute respiratory failure with hypoxia; J96.02 - Acute respiratory failure with hypercapnia; J96.02 - Acute respiratory failure with hypercapnia; J96.02 - Acute respiratory failure with hypercapnia Is this a current diagnosis for this admission?: Yes Plan: Patient presently on BiPAP (2) COPD exacerbation Is this a current diagnosis for this admission?: Yes Plan: Continue present treatment (3) Diabetes mellitus type 2 in nonobese Is this a current diagnosis for this admission?: Yes
[2017-03-11] MEDS: FUROSEMIDE INJ/PF 20 MG/2 ML SDV IV SCH (23:01)
[2017-03-11] MEDS: INSULIN LISPRO 100 UNIT/ML 3 ML VIAL SUBCUT PRN (23:16)
[2017-03-12] MEDS: PROPOFOL 100 ML IV PRN ×4 (00:31→20:06)
[2017-03-12] MEDS: IPRATROPIUM/ALBUTEROL 120 PUFF/4 GM MDI IH SCH ×5 (00:32→23:03)
[2017-03-12 01:54] LABS: CREATINE KINASE MB 4.65 ng/mL (<4.55)
[2017-03-12 02:01] LABS: TROPONIN I 0.677 ng/mL
[2017-03-12 04:55] LABS: HEMATOCRIT 36.6 % (37.9-51.0); HEMOGLOBIN 12.3 g/dL (13.5-17.0); MEAN CORPUSCULAR HEMOGLOBIN 31.9 pg (27.0-33.4); MEAN CORPUSCULAR HGB CONC 33.7 g/dL (32.0-36.0); MEAN CORPUSCULAR VOLUME 95 fl (80-97); PLATELET COUNT 218 10^3/uL (150-450); RED BLOOD COUNT 3.86 10^6/uL (4.35-5.55); WHITE BLOOD COUNT 15.2 10^3/uL (4.0-10.5)
[2017-03-12 04:58] LABS: INTERNATIONAL RATION (INR) 0.93; PROTHROMBIN TIME 13.1 SEC (11.4-15.4)
[2017-03-12 05:00] LABS: MAGNESIUM 2.3 mg/dL (1.6-2.3); PHOSPHORUS 3.4 mg/dL (2.5-4.5)
[2017-03-12 05:16] LABS: ARTERIAL BLOOD BASE EXCESS -0.4 mmol/L; ARTERIAL BLOOD O2 SATURATION 98.8 % (94-98); ARTERIAL BLOOD PCO2 29.8 mmHg (35-45); ARTERIAL BLOOD PH 7.49 (7.35-7.45); ARTERIAL BLOOD PO2 129.9 mmHg (80-100); ARTERIAL BLOOD TOTAL CO2 22.9 mmol/L (23-27)
[2017-03-12 05:19] LABS: ARTERIAL BLOOD FIO2 40%
[2017-03-12 05:19] LABS: ALANINE AMINOTRANSFERASE 36 U/L (21-72); ALBUMIN 3.2 g/dL (3.5-5.0); ALKALINE PHOSPHATASE 61 U/L (38-126); ANION GAP 9 (5-19); ASPARTATE AMINO TRANSFERASE 79 U/L (17-59); BILIRUBIN,DIRECT 0.3 mg/dL (0.0-0.4); BILIRUBIN,TOTAL 0.3 mg/dL (0.2-1.3); BLOOD UREA NITROGEN 25 mg/dL (7-20); CALCIUM 7.8 mg/dL (8.4-10.2); CARBON DIOXIDE 23 mmol/L (22-30); CHLORIDE 104 mmol/L (98-107); GLUCOSE 217 mg/dL (75-110); POTASSIUM 4.3 mmol/L (3.6-5.0); SODIUM 136.4 mmol/L (137-145); TOTAL PROTEIN 6.1 g/dL (6.3-8.2)
[2017-03-12] MEDS: PIPERACILLIN SODIUM/TAZOBACTAM 3.375 GM in NORMAL SALINE 100 ML IV SCH ×3 (05:19→17:37)
[2017-03-12] MEDS: METHYLPREDNISOLONE INJ 125 MG/2 ML SDV IV SCH ×3 (05:19→21:31)
[2017-03-12] MEDS: LANSOPRAZOLE 30 MG TAB.RAP.DR NG SCH (05:20)
[2017-03-12] MEDS: INSULIN LISPRO 100 UNIT/ML 3 ML VIAL SUBCUT PRN (05:23)
[2017-03-12 05:55] LABS: ABSOLUTE LYMPHOCYTES# (MANUAL) 2.3 10^3/uL (0.5-4.7); ABSOLUTE MONOCYTES # (MANUAL) 0.8 10^3/uL (0.1-1.4); ABSOLUTE NEUTROPHILS# (MANUAL) 12.2 10^3/uL (1.7-8.2); BASOPHILS % (MANUAL) 0 % (0-2); EOSINOPHILS % (MANUAL) 0 % (0-6); LYMPHOCYTES % (MANUAL) 14 % (13-45); MONOCYTES % (MANUAL) 5 % (3-13); SEGMENTED NEUTROPHILS % (MAN) 80 % (42-78); TOTAL CELLS COUNTED 100
[2017-03-12 05:57] LABS: ANISOCYTOSIS SLIGHT; BURR CELLS 2+; PLATELET COMMENT ADEQUATE; PLATELET LARGE PRESENT; SCHISTOCYTES 1+; TEAR DROP CELLS SLIGHT; TOXIC GRANULATION 1+
[2017-03-12 07:13] LABS: CREATINE KINASE 59 U/L (55-170); TRIGLYCERIDES 164 mg/dL (<150)
[2017-03-12 07:49] LABS: CREATINE KINASE MB 4.59 ng/mL (<4.55); TROPONIN I 0.822 ng/mL
--- NOTE | 2017-03-12 08:13 | RADIOLOGY REPORT (SQ) ---
EXAM DESCRIPTION: CHEST SINGLE VIEW COMPLETED DATE/TIME: 03/12/2017 7:52 am REASON FOR STUDY: intubated, COPD, RESP FAILURE COMPARISON: 03/11/2017. 03/10/2017. NUMBER OF VIEWS: One view. TECHNIQUE: Single frontal radiographic view of the chest acquired. LIMITATIONS: None. FINDINGS: LUNGS AND PLEURA: No further progression in mild density in the right base. No new infilt rates. No pneumothorax. MEDIASTINUM AND HILAR STRUCTURES: No masses. Contour normal. HEART AND VASCULAR STRUCTURES: Heart normal in size. Normal vasculature. BONES: No acute findings. HARDWARE: Stable appropriate endotracheal and nasogastric tubes. OTHER: No other significant finding. IMPRESSION: Stable chest. No further progression in right basilar mild airspace disease. [employer] te lines and tubes. TECHNICAL DOCUMENTATION: JOB ID: [id number] [employer]- All Rights Reserved
[2017-03-12] MEDS: FUROSEMIDE INJ/PF 20 MG/2 ML SDV IV SCH (08:18)
[2017-03-12] MEDS: VANCOMYCIN HCL 1,000 MG in DEXTROSE 5%-WATER 250 ML IV SCH ×2 (09:39→21:31)
[2017-03-12] MEDS: OSELTAMIVIR PHOSPHATE 6 MG/1 ML SUSP 60 ML NG SCH ×2 (09:39→17:39)
[2017-03-12] MEDS: ENOXAPARIN SODIUM INJ 40 MG/0.4 ML DISP.SYRIN SUBCUT SCH (09:43)
[2017-03-12 10:45] LABS: VANCOMYCIN,TROUGH 34.2 ug/mL (5.0-20.0)
[2017-03-12] MEDS: NORMAL SALINE 1000 ML 1,000 ML IV PRN (11:39)
--- NOTE | 2017-03-12 13:16 | EKG REPORT ---
SEVERITY:- BORDERLINE ECG - SINUS RHYTHM PROBABLE LEFT ATRIAL ABNORMALITY : Confirmed by: Tamiko Leyva MD 12-Mar-2017 13:14:14
[2017-03-12] MEDS: MIDAZOLAM 2 MG/2 ML INJ IV PRN (20:06)
--- NOTE | 2017-03-12 20:30 | PDOC PROGRESS REPORT ---
Subjective Progress Note for:: 03/12/17 Subjective:: Patient is back on mechanical ventilation Reason For Visit: COPD EXACERBATION,RESPIRATORY FAILURE,INFLUENZA Physical Exam Vital Signs: Temp Pulse Resp BP Pulse Ox 98.6 F 62 12 96/60 L 100 03/12/17 19:29 03/12/17 18:00 03/12/17 18:36 03/12/17 18:36 03/12/17 19:22 Intake & Output 03/11/17 03/12/17 03/13/17 06:59 06:59 06:59 Intake Total 4049 1847 Output Total 1340 3172 1000 Balance -1340 877 847 Weight 70.2 kg 71.5 kg Respiratory exam: PRESENT: wheezes Cardiovascular exam: PRESENT: +S1, +S2 GI/Abdominal exam: PRESENT: soft Results Laboratory Results: 03/12/17 04:35 03/12/17 04:35 03/11/17 03/12/17 03/12/17 22:01 04:35 04:35 WBC 15.2 H RBC 3.86 L Hgb 12.3 L Hct 36.6 L MCV 95 MCH 31.9 MCHC 33.7 RDW 15.0 H Plt Count 218 Seg Neutrophils % Not Reportable Lymphocytes % Not Reportable Monocytes % Not Reportable Eosinophils % Not Reportable Basophils % Not Reportable Absolute Neutrophils Not Reportable Absolute Lymphocytes Not Reportable Absolute Monocytes Not Reportable Absolute Eosinophils Not Reportable Absolute Basophils Not Reportable Carbonic Acid 1.04 L HCO3/H2CO3 Ratio 18:1 ABG pH 7.37 ABG pCO2 34.5 L ABG pO2 401.3 H ABG HCO3 19.4 L ABG O2 Saturation 99.8 H ABG Base Excess -5.2 FiO2 80% Sodium 136.4 L Potassium 4.3 Chloride 104 Carbon Dioxide 23 Anion Gap 9 BUN 25 H Creatinine 0.86 Est GFR ( Amer) > 60 Est GFR (Non-Af Amer) > 60 Glucose 217 H Calcium 7.8 L Phosphorus Magnesium Total Bilirubin 0.3 AST 79 H ALT 36 Alkaline Phosphatase 61 Total Protein 6.1 L Albumin 3.2 L Triglycerides 03/12/17 03/12/17 03/12/17 04:35 05:00 06:30 WBC RBC Hgb Hct MCV MCH MCHC RDW Plt Count Seg Neutrophils % Lymphocytes % Monocytes % Eosinophils % Basophils % Absolute Neutrophils Absolute Lymphocytes Absolute Monocytes Absolute Eosinophils Absolute Basophils Carbonic Acid 0.90 L HCO3/H2CO3 Ratio 24:1 ABG pH 7.49 H ABG pCO2 29.8 L ABG pO2 129.9 H ABG HCO3 22.0 ABG O2 Saturation 98.8 H ABG Base Excess -0.4 FiO2 40% Sodium Potassium Chloride Carbon Dioxide Anion Gap BUN Creatinine Est GFR ( Amer) Est GFR (Non-Af Amer) Glucose Calcium Phosphorus 3.4 Magnesium 2.3 Total Bilirubin AST ALT Alkaline Phosphatase Total Protein Albumin Triglycerides 164 H 03/11/17 03/11/17 03/12/17 18:34 18:34 00:16 Creatine Kinase 80 65 CK-MB (CK-2) 4.50 Troponin I 0.055 03/12/17 03/12/17 03/12/17 00:16 01:06 06:30 Creatine Kinase 59 CK-MB (CK-2) Cancelled 4.65 H Troponin I Cancelled 0.677 03/12/17 06:30 Creatine Kinase CK-MB (CK-2) 4.59 H Troponin I 0.822 Impressions: Chest X-Ray 03/12/17 00:00 IMPRESSION: Stable chest. No further progression in right basilar mild airspace disease. Appropriate lines and tubes. Assessment & Plan - Diagnosis (1) Acute respiratory failure Qualifiers: Respiratory failure complication: hypoxia and hypercapnia Qualified Code(s) : J96.01 - Acute respiratory failure with hypoxia; J96.02 - Acute respiratory failure with hypercapnia; J96.02 - Acute respiratory failure with hypercapnia; J96.02 - Acute respiratory failure with hypercapnia Is this a current diagnosis for this admission?: Yes (2) COPD exacerbation Is this a current diagnosis for this admission?: Yes Plan: Continue IV Solu-Medrol (3) Diabetes mellitus type 2 in nonobese Is this a current diagnosis for this admission?: Yes
[2017-03-12 22:16] LABS: VANCOMYCIN,TROUGH 12.2 ug/mL (5.0-20.0)
[2017-03-12] MEDS ORDERED: MIDAZOLAM HCL 50 MG/100 ML RTUINJ IV ONE (22:43)
[2017-03-12] MEDS ORDERED: MIDAZOLAM HCL 50 MG/100 ML RTUINJ IV PRN (22:46)
[2017-03-13] MEDS: PIPERACILLIN SODIUM/TAZOBACTAM 3.375 GM in NORMAL SALINE 100 ML IV SCH ×4 (00:07→17:23)
[2017-03-13] MEDS: INSULIN LISPRO 100 UNIT/ML 3 ML VIAL SUBCUT PRN ×4 (00:09→18:37)
[2017-03-13] MEDS: NORMAL SALINE 1000 ML 1,000 ML IV PRN ×2 (02:37→16:27)
[2017-03-13 04:11] LABS: ABSOLUTE LYMPHOCYTES (AUTO) 1.9 10^3/uL (0.5-4.7); ABSOLUTE MONOCYTES (AUTO) 0.5 10^3/uL (0.1-1.4); ABSOLUTE NEUT (AUTO) 11.2 10^3/uL (1.7-8.2); BASOPHILS % (AUTO) 0.1 % (0-2); HEMATOCRIT 33.6 % (37.9-51.0); HEMOGLOBIN 11.4 g/dL (13.5-17.0); LYMPHOCYTES % (AUTO) 14.2 % (13-45); MEAN CORPUSCULAR HGB CONC 33.8 g/dL (32.0-36.0); MEAN CORPUSCULAR VOLUME 95 fl (80-97); MONOCYTES % (AUTO) 3.5 % (3-13); PLATELET COUNT 198 10^3/uL (150-450); RED BLOOD COUNT 3.55 10^6/uL (4.35-5.55); RED CELL DISTRIBUTION WIDTH 14.8 % (11.5-14.0); SEGMENTED NEUTROPHILS % (AUTO) 82.2 % (42-78); TOTAL CELLS COUNTED % (AUTO) 100 %; WHITE BLOOD COUNT 13.6 10^3/uL (4.0-10.5)
[2017-03-13 04:23] LABS: ALANINE AMINOTRANSFERASE 30 U/L (21-72); ALBUMIN 2.8 g/dL (3.5-5.0); ALKALINE PHOSPHATASE 56 U/L (38-126); ANION GAP 9 (5-19); ASPARTATE AMINO TRANSFERASE 19 U/L (17-59); BILIRUBIN,DIRECT 0.2 mg/dL (0.0-0.4); BILIRUBIN,TOTAL 0.2 mg/dL (0.2-1.3); BLOOD UREA NITROGEN 23 mg/dL (7-20); CALCIUM 7.6 mg/dL (8.4-10.2); CARBON DIOXIDE 19 mmol/L (22-30); CHLORIDE 109 mmol/L (98-107); GLUCOSE 215 mg/dL (75-110); MAGNESIUM 2.3 mg/dL (1.6-2.3); SODIUM 137.3 mmol/L (137-145); TOTAL PROTEIN 5.2 g/dL (6.3-8.2)
[2017-03-13] MEDS: METHYLPREDNISOLONE INJ 125 MG/2 ML SDV IV SCH ×3 (06:01→21:39)
[2017-03-13] MEDS: LANSOPRAZOLE 30 MG TAB.RAP.DR NG SCH (06:01)
[2017-03-13] MEDS: PROPOFOL 100 ML IV PRN ×2 (06:02→22:10)
[2017-03-13] MEDS: IPRATROPIUM/ALBUTEROL 120 PUFF/4 GM MDI IH SCH (06:13)
[2017-03-13 06:32] LABS: ARTERIAL BLOOD H2CO3 0.83 mmol/L (1.05-1.35); ARTERIAL BLOOD HCO3 20.2 mmol/L (20-26); ARTERIAL BLOOD O2 SATURATION 99.2 % (94-98); ARTERIAL BLOOD PCO2 27.7 mmHg (35-45); ARTERIAL BLOOD PH 7.48 (7.35-7.45); ARTERIAL BLOOD PO2 162.8 mmHg (80-100); ARTERIAL BLOOD TOTAL CO2 21.1 mmol/L (23-27)
[2017-03-13 06:33] LABS: ARTERIAL BLOOD FIO2 40%
--- NOTE | 2017-03-13 06:48 | RADIOLOGY REPORT (SQ) ---
EXAM DESCRIPTION: CHEST SINGLE VIEW CLINICAL HISTORY: resp failure COMPARISON: 03/12/2017 FINDINGS: Single frontal view of the chest. Endotracheal tube with tip at the level of the clavicles. NG tube with tip below the diaphragm. Leads overlie the chest. Atherosclerotic calcification aortic arch. Heart is not enlarged. Hazy right basilar opacity. No pneumothorax or pleural effusion. No acute osseous abnormalities. Upper abdominal soft tissues are unremarkable. IMPRESSION: 1. No significant interval change.
[2017-03-13] MEDS ORDERED: IPRATROPIUM/ALBUTEROL 120 PUFF/4 GM MDI IH ONE (10:30)
[2017-03-13] MEDS ORDERED: LEVALBUTEROL HCL NEB 0.63 MG/3 ML AMPUL NEB PRN (11:03)
[2017-03-13] MEDS: VANCOMYCIN HCL 1,000 MG in DEXTROSE 5%-WATER 250 ML IV SCH ×2 (11:12→21:38)
[2017-03-13] MEDS: OSELTAMIVIR PHOSPHATE 6 MG/1 ML SUSP 60 ML NG SCH ×2 (11:14→17:24)
[2017-03-13] MEDS: ENOXAPARIN SODIUM INJ 40 MG/0.4 ML DISP.SYRIN SUBCUT SCH (11:14)
[2017-03-13] MEDS ORDERED: IPRATROPIUM/ALBUTEROL 120 PUFF/4 GM MDI IH SCH (14:00)
[2017-03-13] MEDS: IPRATROPIUM/ALBUTEROL 0.5-2.5 MG/3 ML AMPUL NEB SCH ×2 (14:21→20:08)
--- NOTE | 2017-03-13 16:16 | PDOC PROGRESS REPORT ---
Subjective Progress Note for:: 03/13/17 Subjective:: Patient seen by the bedside, he was extubated, stable said he feels better Reason For Visit: COPD EXACERBATION,RESPIRATORY FAILURE,INFLUENZA Physical Exam Vital Signs: Temp Pulse Resp BP Pulse Ox 97.7 F 70 17 128/73 H 100 03/13/17 14:00 03/13/17 14:21 03/13/17 14:21 03/13/17 14:07 03/13/17 14:21 Intake & Output 03/12/17 03/13/17 03/14/17 06:59 06:59 06:59 Intake Total 4049 3271 Output Total 3172 1495 435 Balance 877 1776 -435 Weight 71.5 kg 73.9 kg Head exam: PRESENT: atraumatic, normocephalic Eye exam: PRESENT: conjunctiva pink, EOMI, PERRLA. ABSENT: scleral icterus Ear exam: PRESENT: normal external ear exam Mouth exam: PRESENT: moist, tongue midline Neck exam: PRESENT: full ROM Respiratory exam: PRESENT: decreased breath sounds Cardiovascular exam: PRESENT: RRR, +S1, +S2 Pulses: PRESENT: normal dorsalis pedis pul, +2 pedal pulses bilateral Vascular exam: PRESENT: normal capillary refill GI/Abdominal exam: PRESENT: normal bowel sounds, soft Rectal exam: PRESENT: deferred Neurological exam: PRESENT: alert. ABSENT: motor sensory deficit Psychiatric exam: PRESENT: appropriate affect, normal mood. ABSENT: homicidal ideation, suicidal ideation Skin exam: PRESENT: dry, intact, warm. ABSENT: cyanosis, rash Results Laboratory Results: 03/13/17 03:56 03/13/17 03:56 03/13/17 03/13/17 03/13/17 03:56 03:56 06:11 WBC 13.6 H RBC 3.55 L Hgb 11.4 L Hct 33.6 L MCV 95 MCH 32.0 MCHC 33.8 RDW 14.8 H Plt Count 198 Seg Neutrophils % 82.2 H Lymphocytes % 14.2 Monocytes % 3.5 Eosinophils % 0.0 Basophils % 0.1 Absolute Neutrophils 11.2 H Absolute Lymphocytes 1.9 Absolute Monocytes 0.5 Absolute Eosinophils 0.0 Absolute Basophils 0.0 Carbonic Acid 0.83 L HCO3/H2CO3 Ratio 24:1 ABG pH 7.48 H ABG pCO2 27.7 L ABG pO2 162.8 H ABG HCO3 20.2 ABG O2 Saturation 99.2 H ABG Base Excess -2.0 FiO2 40% Sodium 137.3 Potassium 4.0 Chloride 109 H Carbon Dioxide 19 L Anion Gap 9 BUN 23 H Creatinine 0.73 Est GFR ( Amer) > 60 Est GFR (Non-Af Amer) > 60 Glucose 215 H Calcium 7.6 L Magnesium 2.3 Total Bilirubin 0.2 AST 19 ALT 30 Alkaline Phosphatase 56 Total Protein 5.2 L Albumin 2.8 L 03/10/17 16:20 Tracheal Aspirate Gram Stain - Final 03/10/17 16:20 Tracheal Aspirate Sputum Culture - Final NORMAL GEORGETTE 03/11/17 03/11/17 03/12/17 18:34 18:34 00:16 Creatine Kinase 80 65 CK-MB (CK-2) 4.50 Troponin I 0.055 03/12/17 03/12/17 03/12/17 00:16 01:06 06:30 Creatine Kinase 59 CK-MB (CK-2) Cancelled 4.65 H Troponin I Cancelled 0.677 03/12/17 06:30 Creatine Kinase CK-MB (CK-2) 4.59 H Troponin I 0.822 Impressions: Chest X-Ray 03/13/17 06:00 IMPRESSION: 1. No significant interval change. Assessment & Plan - Diagnosis (1) Acute respiratory failure Qualifiers: Respiratory failure complication: hypoxia and hypercapnia Qualified Code(s) : J96.01 - Acute respiratory failure with hypoxia; J96.02 - Acute respiratory failure with hypercapnia; J96.02 - Acute respiratory failure with hypercapnia; J96.02 - Acute respiratory failure with hypercapnia Is this a current diagnosis for this admission?: Yes (2) COPD exacerbation Is this a current diagnosis for this admission?: Yes (3) Diabetes mellitus type 2 in nonobese Is this a current diagnosis for this admission?: Yes
[2017-03-13] MEDS ORDERED: SCOPOLAMINE HYDROBROMIDE 1.5 MG PATCH.TD72 TD SCH (18:00)
[2017-03-14] MEDS: PIPERACILLIN SODIUM/TAZOBACTAM 3.375 GM in NORMAL SALINE 100 ML IV SCH ×5 (01:08→23:54)
[2017-03-14] MEDS: IPRATROPIUM/ALBUTEROL 0.5-2.5 MG/3 ML AMPUL NEB SCH ×4 (01:40→20:05)
[2017-03-14 04:24] LABS: ABSOLUTE LYMPHOCYTES (AUTO) 1.2 10^3/uL (0.5-4.7); ABSOLUTE MONOCYTES (AUTO) 0.4 10^3/uL (0.1-1.4); ABSOLUTE NEUT (AUTO) 12.7 10^3/uL (1.7-8.2); BASOPHILS % (AUTO) 0.1 % (0-2); HEMATOCRIT 33.4 % (37.9-51.0); HEMOGLOBIN 11.4 g/dL (13.5-17.0); LYMPHOCYTES % (AUTO) 8.1 % (13-45); MEAN CORPUSCULAR HEMOGLOBIN 32.1 pg (27.0-33.4); MEAN CORPUSCULAR HGB CONC 34.1 g/dL (32.0-36.0); MEAN CORPUSCULAR VOLUME 94 fl (80-97); MONOCYTES % (AUTO) 3.1 % (3-13); PLATELET COUNT 172 10^3/uL (150-450); RED BLOOD COUNT 3.56 10^6/uL (4.35-5.55); SEGMENTED NEUTROPHILS % (AUTO) 88.7 % (42-78); TOTAL CELLS COUNTED % (AUTO) 100 %; WHITE BLOOD COUNT 14.4 10^3/uL (4.0-10.5)
[2017-03-14 04:53] LABS: ANION GAP 9 (5-19); BLOOD UREA NITROGEN 21 mg/dL (7-20); CALCIUM 7.7 mg/dL (8.4-10.2); CARBON DIOXIDE 21 mmol/L (22-30); CHLORIDE 109 mmol/L (98-107); GLUCOSE 253 mg/dL (75-110); MAGNESIUM 2.3 mg/dL (1.6-2.3); POTASSIUM 3.7 mmol/L (3.6-5.0); SODIUM 139.2 mmol/L (137-145)
[2017-03-14 05:22] LABS: ARTERIAL BLOOD BASE EXCESS -1.3 mmol/L; ARTERIAL BLOOD FIO2 21; ARTERIAL BLOOD H2CO3 0.87 mmol/L (1.05-1.35); ARTERIAL BLOOD HCO3 21.3 mmol/L (20-26); ARTERIAL BLOOD O2 SATURATION 97.6 % (94-98); ARTERIAL BLOOD PCO2 28.8 mmHg (35-45); ARTERIAL BLOOD PH 7.49 (7.35-7.45); ARTERIAL BLOOD PO2 91.2 mmHg (80-100); ARTERIAL BLOOD TOTAL CO2 22.2 mmol/L (23-27)
[2017-03-14] MEDS: METHYLPREDNISOLONE INJ 125 MG/2 ML SDV IV SCH ×3 (06:13→21:55)
[2017-03-14] MEDS: LANSOPRAZOLE 30 MG TAB.RAP.DR NG SCH (06:14)
[2017-03-14] MEDS: NORMAL SALINE 1000 ML 1,000 ML IV PRN ×2 (06:15→21:56)
[2017-03-14] MEDS: PROPOFOL 100 ML IV PRN (06:16)
--- NOTE | 2017-03-14 06:52 | RADIOLOGY REPORT (SQ) ---
EXAM DESCRIPTION: CHEST SINGLE VIEW CLINICAL HISTORY: resp failure COMPARISON: 03/13/2017 FINDINGS: Single frontal view of the chest. Endotracheal tube with tip at the level of the clavicles. NG tube with tip below the diaphragm. Leads overlie the chest. Atherosclerotic calcification aortic arch. Heart is not enlarged. Hazy right basilar opacity. No pneumothorax or pleural effusion. No acute osseous abnormalities. Upper abdominal soft tissues are unremarkable. IMPRESSION: 1. No significant interval change.
[2017-03-14] MEDS: INSULIN LISPRO 100 UNIT/ML 3 ML VIAL SUBCUT PRN ×2 (08:53→18:01)
[2017-03-14] MEDS: VANCOMYCIN HCL 1,000 MG in DEXTROSE 5%-WATER 250 ML IV SCH ×2 (10:09→21:55)
[2017-03-14] MEDS: OSELTAMIVIR PHOSPHATE 6 MG/1 ML SUSP 60 ML NG SCH ×2 (10:09→17:53)
[2017-03-14] MEDS: ENOXAPARIN SODIUM INJ 40 MG/0.4 ML DISP.SYRIN SUBCUT SCH (10:10)
[2017-03-14] MEDS ORDERED: DEXAMETHASONE SOD PHOSPHATE INJ 4 MG/1 ML VIAL IV ONE (10:57)
--- NOTE | 2017-03-14 11:57 | EKG REPORT ---
SEVERITY:- ABNORMAL ECG - SINUS RHYTHM CONSIDER ANTEROSEPTAL INFARCT BORDERLINE PROLONGED QT INTERVAL : Confirmed by: Al Xiong 14-Mar-2017 11:56:35
[2017-03-14 14:41] LABS: ARTERIAL BLOOD BASE EXCESS -1.7 mmol/L; ARTERIAL BLOOD H2CO3 0.99 mmol/L (1.05-1.35); ARTERIAL BLOOD HCO3 21.8 mmol/L (20-26); ARTERIAL BLOOD O2 SATURATION 99.6 % (94-98); ARTERIAL BLOOD PCO2 32.9 mmHg (35-45); ARTERIAL BLOOD PH 7.44 (7.35-7.45); ARTERIAL BLOOD TOTAL CO2 22.9 mmol/L (23-27)
[2017-03-14 14:42] LABS: ARTERIAL BLOOD FIO2 35%
--- NOTE | 2017-03-14 16:44 | PDOC CONSULTATION ---
Consultation Consult Date: 03/09/17 Attending physician:: ANNABEL BLUE Consult reason:: hypercapnic resp failure History of Present Illness Admission Date/PCP: 03/10/17 06:27 CONSTANCE NAIDU MD History of Present Illness: all information from chart:TAMMY RICHARDS is a 61 year old male patient who presented to the ED via EMS service from local SNF with worsening difficulty with breathing. Patient has history of oxygen dependent COPD and recently hospitalized for Pneumonia. Despite administration of bronchodilators and supportive therapy with CPAP he did not show any improvement. He was eventually intubated and vent supported while in the ED. He was found to have Influenza A virus infection. Past Medical History Cardiac Medical History: Reports: Congestive Heart Failure, Myocardial Infarction Pulmonary Medical History: Reports: Chronic Obstructive Pulmonary Disease (COPD) Endocrine Medical History: Reports: Diabetes Mellitus Type 1, Diabetes Mellitus Type 2 - insulin dependent GI Medical History: Reports: Gastroesophageal Reflux Disease Psychiatric Medical History: Reports: Depression Traumatic Medical History: Denies: Traumatic Brain Injury Hematology: Denies: Sickle Cell Disease Infectious Medical History: Denies: Hepatitis B, Hepatitis C Past Surgical History Past Surgical History: Reports: Other - unable to obtain Social History Information Source: [facility] Records Lives with: [facility] Smoking Status: Current Every Day Smoker Frequency of Alcohol Use: Occasional Hx Recreational Drug Use: No - unable to obtain Drugs: Cocaine Hx Prescription Drug Abuse: No Do you have pets?: No Have you had any respiratory illnesses as a child?: No Have you travelled outside of [place] in the past 12 months?: No Family History Parental Family History Reviewed: No Children Family History Reviewed: No Sibling(s) Family History Reviewed.: No Medication/Allergy Home Medications: Acetaminophen [Tylenol] 650 mg PO Q4HP PRN 03/10/17 Aspirin [Aspirin EC] 81 mg PO DAILY 03/10/17 Atorvastatin Calcium [Lipitor 40 mg Tablet] 40 mg PO QHS 03/10/17 Atorvastatin Calcium [Lipitor 80 mg Tablet] 80 mg PO QHS 03/10/17 Carvedilol [Coreg 3.125 mg Tablet] 3.125 mg PO Q12 03/10/17 Digoxin [Lanoxin 0.125 mg Tablet] 0.125 mg PO DAILY@1400 03/10/17 Finasteride [Proscar 5 mg Tablet] 5 mg PO DAILY 03/10/17 Gabapentin [Neurontin 300 mg Capsule] 300 mg PO Q8 03/10/17 Insulin Glargine,Hum.rec.anlog [Lantus] 16 unit SQ NOON 03/10/17 Lisinopril [Prinivil 2.5 mg Tablet] 2.5 mg PO DAILY 03/10/17 Metformin HCl [Glucophage 500 mg Tablet] 500 mg PO BID 03/10/17 Omeprazole 20 mg PO DAILY 03/10/17 Oxybutynin Chloride [Ditropan 5 Mg Tablet] 5 mg PO DAILY 03/10/17 Phenazopyridine HCl [Pyridium] 200 mg PO TIDP PRN 03/10/17 Sennosides/Docusate 8.6-50 mg [Senna Plus Tablet] 1 tab PO HSP PRN 03/10/17 Sennosides/Docusate 8.6-50 mg [Senna Plus Tablet] 1 tab PO QHS 03/10/17 Tamsulosin HCl [Flomax 0.4 mg Cap.sr] 0.4 mg PO DAILY 03/10/17 Allergies/Adverse Reactions: walnut Allergy (Unknown, Verified 03/10/17 05:00) Review of Systems ROS unobtainable: Due to endotracheal tube Physical Exam Vital Signs: Temp Pulse Resp BP Pulse Ox 97.0 F 88 22 H 96/69 L 98 03/10/17 16:00 03/10/17 16:00 03/10/17 16:00 03/10/17 16:00 03/10/17 16:27 Intake & Output 03/09/17 03/10/17 03/11/17 06:59 06:59 06:59 Output Total 620 Balance -620 Weight 70.2 kg General appearance: PRESENT: no acute distress, disheveled, well-developed. ABSENT: cooperative, mild distress, morbidly obese, severe distress Head exam: PRESENT: atraumatic, normocephalic Eye exam: PRESENT: conjunctiva pale. ABSENT: conjunctival injection, conjunctiva pink, nystagmus, periorbital swelling, scleral icterus Mouth exam: PRESENT: dry mucosa, neck supple, tongue midline, other - ET tube. ABSENT: laceration, moist Neck exam: ABSENT: carotid bruit, JVD, lymphadenopathy, thyromegaly, tracheal deviation, tracheostomy Cardiovascular exam: PRESENT: RRR, +S1, +S2 Pulses: PRESENT: normal radial pulses GI/Abdominal exam: PRESENT: diminished bowel sounds, soft Gentrourinary exam: PRESENT: indwelling catheter Extremities exam: ABSENT: clubbing, joint swelling Musculoskeletal exam: ABSENT: ambulatory, deformity, dislocation Neurological exam: ABSENT: alert, awake Skin exam: PRESENT: dry, warm Results Laboratory Results: 03/10/17 03/10/17 11:30 12:50 Carbonic Acid 0.99 L 1.13 HCO3/H2CO3 Ratio 18:1 17:1 ABG pH 7.35 7.35 ABG pCO2 33.0 L 37.5 ABG pO2 189.4 H 91.7 ABG HCO3 17.9 L 20.2 ABG O2 Saturation 99.3 H 96.7 ABG Base Excess -6.8 -4.9 FiO2 50% 30% Impressions: Chest X-Ray 03/10/17 04:46 IMPRESSION: Interval intubation. Else, stable. 2010 [employer]- All Rights Reserved Assessment & Plan - Diagnosis (1) COPD exacerbation Is this a current diagnosis for this admission?: Yes Plan: Generic Name Dose Route Start Last Admin Trade Name Freq PRN Reason Stop Dose Admin Methylprednisolone Sodium Succinate 125 mg 03/10/17 14:00 03/10/17 13:40 Solu-Medrol Inj/Pf 125 Mg/2 Ml Sdv IV 04/09/17 13:59 125 mg Q8 MAICOL Albuterol/Ipratropium 1 puff 03/10/17 12:00 03/10/17 17:28 Combivent Respimat 4 Gm Mdi IH 04/09/17 11:59 Not Given Q6 MAICOL (2) Hyponatremia Is this a current diagnosis for this admission?: Yes Plan: Labs- All tests 24 hr 03/10/17 04:43 Sodium 128.0 L (3) Influenza A Is this a current diagnosis for this admission?: Yes Plan: tamiflu (4) Acute hypercapnic respiratory failure Is this a current diagnosis for this admission?: Yes Plan: increase min vol - Time Time Spent with patient: 50 Total Critical Time (Minutes): 55
--- NOTE | 2017-03-14 20:31 | PDOC PROGRESS REPORT ---
Subjective Progress Note for:: 03/14/17 Subjective:: Patient about the same and has made very little progress. There is no significant change in general condition. Patient remains intubated, sedated, patient however looks comfortable and in acute distress. Telemetry strips shows just mild intermittent bradycardia. Medications reviewed. Reason For Visit: COPD EXACERBATION,RESPIRATORY FAILURE,INFLUENZA Physical Exam Vital Signs: Temp Pulse Resp BP Pulse Ox 97.5 F 60 18 141/75 H 100 03/14/17 19:21 03/14/17 20:05 03/14/17 20:05 03/14/17 18:00 03/14/17 20:05 Intake & Output 03/13/17 03/14/17 03/15/17 06:59 06:59 06:59 Intake Total 3271 2781 1353 Output Total 1495 1285 1495 Balance 1776 1496 -142 Weight 73.9 kg 75.3 kg Exam: GENERAL: well-nourished and in no acute distress. Patient is intubated and sedated. Orientation cannot be checked HEAD: Atraumatic, normocephalic. EYES: Pupils equal round and reactive to light, extraocular movements could not be checked, sclera anicteric, conjunctiva are normal. ENT: TMs normal, nares patent, oropharynx clear without exudates. Moist mucous membranes. No oral ulcerations or bleeding gums noted NECK: supple without lymphadenopathy or JVD. Trachea is central. No cervical or axillary lymphadenopathy noted. Carotids are 2+ LUNGS: Breath sounds mostly clear to auscultation patient is noted to have bibasal crackles at the extreme bases CHEST: Palpation of the chest wall shows no significant chest wall tenderness or abnormalities. 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 ABDOMEN: Soft, no significant tenderness appreciated, normoactive bowel sounds. No guarding, no rebound. No rigidity noted . No masses appreciated. EXTREMITIES: Pedal pulses are 1-2+, no calf tenderness noted, 1+ pedal edema noted. No clubbing or cyanosis. NEUROLOGICAL: The patient cannot participate in the neurological exam but no facial asymmetry noted. Extremities slightly hypotonic PSYCH: This cannot be evaluated. Patient cannot participate. SKIN: No significant ecchymosis, rash, or signs of pruritus noted. MUSCULOSKELETAL EXAM: No significant joint swelling noted. Patient cannot participate in musculoskeletal exam Results Laboratory Results: 03/14/17 04:02 03/14/17 04:02 03/14/17 03/14/17 03/14/17 04:02 04:02 05:10 WBC 14.4 H RBC 3.56 L Hgb 11.4 L Hct 33.4 L MCV 94 MCH 32.1 MCHC 34.1 RDW 15.0 H Plt Count 172 Seg Neutrophils % 88.7 H Lymphocytes % 8.1 L Monocytes % 3.1 Eosinophils % 0.0 Basophils % 0.1 Absolute Neutrophils 12.7 H Absolute Lymphocytes 1.2 Absolute Monocytes 0.4 Absolute Eosinophils 0.0 Absolute Basophils 0.0 Carbonic Acid 0.87 L HCO3/H2CO3 Ratio 24:1 ABG pH 7.49 H ABG pCO2 28.8 L ABG pO2 91.2 ABG HCO3 21.3 ABG O2 Saturation 97.6 ABG Base Excess -1.3 FiO2 21 Sodium 139.2 Potassium 3.7 Chloride 109 H Carbon Dioxide 21 L Anion Gap 9 BUN 21 H Creatinine 0.68 Est GFR ( Amer) > 60 Est GFR (Non-Af Amer) > 60 Glucose 253 H Calcium 7.7 L Magnesium 2.3 03/14/17 14:30 WBC RBC Hgb Hct MCV MCH MCHC RDW Plt Count Seg Neutrophils % Lymphocytes % Monocytes % Eosinophils % Basophils % Absolute Neutrophils Absolute Lymphocytes Absolute Monocytes Absolute Eosinophils Absolute Basophils Carbonic Acid 0.99 L HCO3/H2CO3 Ratio 22:1 ABG pH 7.44 ABG pCO2 32.9 L ABG pO2 238.0 H ABG HCO3 21.8 ABG O2 Saturation 99.6 H ABG Base Excess -1.7 FiO2 35% Sodium Potassium Chloride Carbon Dioxide Anion Gap BUN Creatinine Est GFR ( Amer) Est GFR (Non-Af Amer) Glucose Calcium Magnesium 03/11/17 03/11/17 03/12/17 18:34 18:34 00:16 Creatine Kinase 80 65 CK-MB (CK-2) 4.50 Troponin I 0.055 03/12/17 03/12/17 03/12/17 00:16 01:06 06:30 Creatine Kinase 59 CK-MB (CK-2) Cancelled 4.65 H Troponin I Cancelled 0.677 03/12/17 06:30 Creatine Kinase CK-MB (CK-2) 4.59 H Troponin I 0.822 Impressions: Chest X-Ray 03/14/17 06:00 IMPRESSION: 1. No significant interval change. Assessment & Plan - Diagnosis (1) Acute respiratory failure Qualifiers: Respiratory failure complication: hypoxia and hypercapnia Qualified Code(s) : J96.01 - Acute respiratory failure with hypoxia; J96.02 - Acute respiratory failure with hypercapnia; J96.02 - Acute respiratory failure with hypercapnia; J96.02 - Acute respiratory failure with hypercapnia Is this a current diagnosis for this admission?: Yes (2) COPD exacerbation Is this a current diagnosis for this admission?: Yes (3) Diabetes mellitus type 2 in nonobese Is this a current diagnosis for this admission?: Yes (4) Cardiomyopathy Qualifiers: Cardiomyopathy type: unspecified Qualified Code(s): I42.9 - Cardiomyopathy , unspecified (6) Coronary artery disease Qualifiers: Coronary Disease-Associated Artery/Lesion type: [place] artery [place] vs. transplanted heart: [place] heart Associated angina: angina presence unspecified Qualified Code(s): I25.10 - Atherosclerotic heart disease of [place] coronary artery without angina pectoris Is this a current diagnosis for this admission?: Yes (7) Bradycardia Is this a current diagnosis for this admission?: Yes - Notes Notes: Patient known to me from previous admission. Please see previous cardiac evaluations. At this point bradycardia is mild and asymptomatic. Possibly related to intermittent vagal stimulation from endotracheal tube. Continue scopolamine patch. May consider placing patient on transcutaneous pacer patches in case of emergency. Bradycardia: Intermittent. Initial EKG showed sinus tachycardia. Feel that bradycardia most likely related to vagal stimulation. Patient prone to vagal stimulation due to endotracheal tube. Recommend scopolamine patch. This was related to the nurse to write a verbal order. Acute respiratory failure: Patient placed on ventilator and is being artificially ventilated. School Psychological Examiner managing. COPD exacerbation: Patient being treated with steroids and bronchodilator therapy. Also continue antibiotic therapy. Management plans being deferred to fence installer and legal services manager. Diabetes: Recommend good control but avoid any hypo-or hyperglycemia. Influenza A: Agree with current treatment plans. Cardiomyopathy: Patient has a history of cardiomyopathy with depressed LVEF. Currently seems compensated. Gradually optimize underlying management. Coronary artery disease: Currently stable without any evidence to suggest ongoing ischemia. Troponin I elevation: [place] to be related to supply demand mismatch and due to metabolic reasons. Previous cardiac evaluations were reviewed. Recommend optimization of medical management. - Time Time with patient: Greater than 35 minutes
--- NOTE | 2017-03-14 23:24 | PDOC PROGRESS REPORT ---
Subjective Progress Note for:: 03/14/17 Subjective:: Patient seen by the bedside, he was extubated, stable said he feels better Reason For Visit: COPD EXACERBATION,RESPIRATORY FAILURE,INFLUENZA Physical Exam Vital Signs: Temp Pulse Resp BP Pulse Ox 97.7 F 59 L 11 L 138/66 H 100 03/14/17 21:52 03/14/17 22:00 03/14/17 22:00 03/14/17 21:50 03/14/17 22:00 Intake & Output 03/13/17 03/14/17 03/15/17 06:59 06:59 06:59 Intake Total 3271 2781 1353 Output Total 1495 1285 1620 Balance 1776 1496 -267 Weight 73.9 kg 75.3 kg General appearance: PRESENT: no acute distress Eye exam: PRESENT: PERRLA Respiratory exam: PRESENT: clear to auscultation v[place]ie Cardiovascular exam: PRESENT: +S1, +S2 GI/Abdominal exam: PRESENT: soft Neurological exam: PRESENT: alert Results Laboratory Results: 03/14/17 04:02 03/14/17 04:02 03/14/17 03/14/17 03/14/17 04:02 04:02 05:10 WBC 14.4 H RBC 3.56 L Hgb 11.4 L Hct 33.4 L MCV 94 MCH 32.1 MCHC 34.1 RDW 15.0 H Plt Count 172 Seg Neutrophils % 88.7 H Lymphocytes % 8.1 L Monocytes % 3.1 Eosinophils % 0.0 Basophils % 0.1 Absolute Neutrophils 12.7 H Absolute Lymphocytes 1.2 Absolute Monocytes 0.4 Absolute Eosinophils 0.0 Absolute Basophils 0.0 Carbonic Acid 0.87 L HCO3/H2CO3 Ratio 24:1 ABG pH 7.49 H ABG pCO2 28.8 L ABG pO2 91.2 ABG HCO3 21.3 ABG O2 Saturation 97.6 ABG Base Excess -1.3 FiO2 21 Sodium 139.2 Potassium 3.7 Chloride 109 H Carbon Dioxide 21 L Anion Gap 9 BUN 21 H Creatinine 0.68 Est GFR ( Amer) > 60 Est GFR (Non-Af Amer) > 60 Glucose 253 H Calcium 7.7 L Magnesium 2.3 03/14/17 14:30 WBC RBC Hgb Hct MCV MCH MCHC RDW Plt Count Seg Neutrophils % Lymphocytes % Monocytes % Eosinophils % Basophils % Absolute Neutrophils Absolute Lymphocytes Absolute Monocytes Absolute Eosinophils Absolute Basophils Carbonic Acid 0.99 L HCO3/H2CO3 Ratio 22:1 ABG pH 7.44 ABG pCO2 32.9 L ABG pO2 238.0 H ABG HCO3 21.8 ABG O2 Saturation 99.6 H ABG Base Excess -1.7 FiO2 35% Sodium Potassium Chloride Carbon Dioxide Anion Gap BUN Creatinine Est GFR ( Amer) Est GFR (Non-Af Amer) Glucose Calcium Magnesium 03/11/17 03/11/17 03/12/17 18:34 18:34 00:16 Creatine Kinase 80 65 CK-MB (CK-2) 4.50 Troponin I 0.055 03/12/17 03/12/17 03/12/17 00:16 01:06 06:30 Creatine Kinase 59 CK-MB (CK-2) Cancelled 4.65 H Troponin I Cancelled 0.677 03/12/17 06:30 Creatine Kinase CK-MB (CK-2) 4.59 H Troponin I 0.822 Impressions: Chest X-Ray 03/14/17 06:00 IMPRESSION: 1. No significant interval change. Assessment & Plan - Diagnosis (1) Acute respiratory failure Qualifiers: Respiratory failure complication: hypoxia and hypercapnia Qualified Code(s) : J96.01 - Acute respiratory failure with hypoxia; J96.02 - Acute respiratory failure with hypercapnia; J96.02 - Acute respiratory failure with hypercapnia; J96.02 - Acute respiratory failure with hypercapnia Is this a current diagnosis for this admission?: Yes (2) COPD exacerbation Is this a current diagnosis for this admission?: Yes (3) Diabetes mellitus type 2 in nonobese Is this a current diagnosis for this admission?: Yes - Plan Summary Plan Summary: Continue treatment
[2017-03-15] MEDS: IPRATROPIUM/ALBUTEROL 0.5-2.5 MG/3 ML AMPUL NEB SCH ×4 (01:41→20:41)
[2017-03-15 04:02] LABS: ABSOLUTE LYMPHOCYTES (AUTO) 1.1 10^3/uL (0.5-4.7); ABSOLUTE MONOCYTES (AUTO) 0.4 10^3/uL (0.1-1.4); BASOPHILS % (AUTO) 0.1 % (0-2); HEMATOCRIT 32.6 % (37.9-51.0); LYMPHOCYTES % (AUTO) 7.7 % (13-45); MEAN CORPUSCULAR HEMOGLOBIN 31.9 pg (27.0-33.4); MEAN CORPUSCULAR HGB CONC 33.8 g/dL (32.0-36.0); MEAN CORPUSCULAR VOLUME 95 fl (80-97); MONOCYTES % (AUTO) 2.5 % (3-13); PLATELET COUNT 168 10^3/uL (150-450); RED BLOOD COUNT 3.44 10^6/uL (4.35-5.55); RED CELL DISTRIBUTION WIDTH 14.8 % (11.5-14.0); SEGMENTED NEUTROPHILS % (AUTO) 89.7 % (42-78); TOTAL CELLS COUNTED % (AUTO) 100 %; WHITE BLOOD COUNT 14.5 10^3/uL (4.0-10.5)
[2017-03-15 04:21] LABS: ALANINE AMINOTRANSFERASE 34 U/L (21-72); ALBUMIN 2.8 g/dL (3.5-5.0); ALKALINE PHOSPHATASE 54 U/L (38-126); ANION GAP 8 (5-19); ASPARTATE AMINO TRANSFERASE 14 U/L (17-59); BILIRUBIN,DIRECT 0.3 mg/dL (0.0-0.4); BILIRUBIN,TOTAL 0.5 mg/dL (0.2-1.3); BLOOD UREA NITROGEN 18 mg/dL (7-20); CALCIUM 7.9 mg/dL (8.4-10.2); CARBON DIOXIDE 24 mmol/L (22-30); CHLORIDE 107 mmol/L (98-107); GLUCOSE 254 mg/dL (75-110); MAGNESIUM 2.3 mg/dL (1.6-2.3); POTASSIUM 3.9 mmol/L (3.6-5.0); SODIUM 138.8 mmol/L (137-145); TOTAL PROTEIN 5.2 g/dL (6.3-8.2)
[2017-03-15] MEDS: LANSOPRAZOLE 30 MG TAB.RAP.DR NG SCH (06:04)
[2017-03-15] MEDS: METHYLPREDNISOLONE INJ 125 MG/2 ML SDV IV SCH ×3 (06:05→23:12)
[2017-03-15] MEDS: PIPERACILLIN SODIUM/TAZOBACTAM 3.375 GM in NORMAL SALINE 100 ML IV SCH ×3 (06:05→17:26)
--- NOTE | 2017-03-15 07:10 | RADIOLOGY REPORT (SQ) ---
EXAM DESCRIPTION: CHEST SINGLE VIEW CLINICAL HISTORY: resp failure COMPARISON: 03/14/2017 FINDINGS: Single frontal view of the chest. Interval removal of endotracheal tube and NG tube. Mediastinal silhouette is unremarkable. Hazy right basilar opacity. No pneumothorax or pleural effusion. No acute osseous abnormalities. Upper abdominal soft tissues are unremarkable. IMPRESSION: 1. Interval removal of NG tube and endotracheal tube. Otherwise stable appearance of the chest.
[2017-03-15] MEDS: ENOXAPARIN SODIUM INJ 40 MG/0.4 ML DISP.SYRIN SUBCUT SCH (09:31)
[2017-03-15] MEDS: OSELTAMIVIR PHOSPHATE 6 MG/1 ML SUSP 60 ML NG SCH (09:31)
--- NOTE | 2017-03-15 09:35 | PDOC CONSULTATION ---
Consultation Consult Date: 03/13/17 Attending physician:: CONSTANCE NAIDU Consult reason:: Bradycardia History of Present Illness Admission Date/PCP: 03/10/17 06:27 CONSTANCE NAIDU MD Patient complains of: Intubated and sedated but noted to have bradycardia History of Present Illness: all information from chart:TAMMY RICHARDS is a 61 year old male patient who presented to the ED via EMS service from local with worsening difficulty with breathing. Patient has history of oxygen dependent COPD and recently hospitalized for Pneumonia. Despite administration of bronchodilators and supportive therapy with CPAP he did not show any improvement. He was eventually intubated and vent supported while in the ED. He was found to have Influenza A virus infection. This history was reviewed and confirmed. Past medical history reviewed. His morbidities include Congestive Heart Failure, old [place], COPD, Diabetes Mellitus Type 2, GERD, and Depression. Patient was evaluated by me in the past for history of heart failure, cardiomyopathy and coronary artery disease. Patient has history of depressed LVEF and also coronary artery disease. While being monitored in the intensive care unit he was noted to be bradycardic. This was however intermittent is not sustained. Blood pressure was noted to be well maintained. It was felt that could have been related to vagal stimulation. Past Medical History Cardiac Medical History: Reports: Congestive Heart Failure, Myocardial Infarction Pulmonary Medical History: Reports: Chronic Obstructive Pulmonary Disease (COPD) Endocrine Medical History: Reports: Diabetes Mellitus Type 1, Diabetes Mellitus Type 2 - insulin dependent GI Medical History: Reports: Gastroesophageal Reflux Disease Psychiatric Medical History: Reports: Depression Traumatic Medical History: Denies: Traumatic Brain Injury Hematology: Denies: Sickle Cell Disease Infectious Medical History: Denies: Hepatitis B, Hepatitis C Past Surgical History Past Surgical History: Reports: Other - unable to obtain Social History Information Source: [facility] Records Lives with: Long-Term Smoking Status: Current Every Day Smoker Frequency of Alcohol Use: Occasional Hx Recreational Drug Use: No - unable to obtain Drugs: Cocaine Hx Prescription Drug Abuse: No - Advance Directive Resuscitation Status: Full Code Family History Family History: Reviewed & Not Pertinent Parental Family History Reviewed: No Children Family History Reviewed: No Sibling(s) Family History Reviewed.: No - No family member available. Medication/Allergy Home Medications: Acetaminophen [Tylenol] 650 mg PO Q4HP PRN 03/10/17 Aspirin [Aspirin EC] 81 mg PO DAILY 03/10/17 Atorvastatin Calcium [Lipitor 40 mg Tablet] 40 mg PO QHS 03/10/17 Atorvastatin Calcium [Lipitor 80 mg Tablet] 80 mg PO QHS 03/10/17 Carvedilol [Coreg 3.125 mg Tablet] 3.125 mg PO Q12 03/10/17 Digoxin [Lanoxin 0.125 mg Tablet] 0.125 mg PO DAILY@1400 03/10/17 Finasteride [Proscar 5 mg Tablet] 5 mg PO DAILY 03/10/17 Gabapentin [Neurontin 300 mg Capsule] 300 mg PO Q8 03/10/17 Insulin Glargine,Hum.rec.anlog [Lantus] 16 unit SQ NOON 03/10/17 Lisinopril [Prinivil 2.5 mg Tablet] 2.5 mg PO DAILY 03/10/17 Metformin HCl [Glucophage 500 mg Tablet] 500 mg PO BID 03/10/17 Omeprazole 20 mg PO DAILY 03/10/17 Oxybutynin Chloride [Ditropan 5 Mg Tablet] 5 mg PO DAILY 03/10/17 Phenazopyridine HCl [Pyridium] 200 mg PO TIDP PRN 03/10/17 Sennosides/Docusate 8.6-50 mg [Senna Plus Tablet] 1 tab PO HSP PRN 03/10/17 Sennosides/Docusate 8.6-50 mg [Senna Plus Tablet] 1 tab PO QHS 03/10/17 Tamsulosin HCl [Flomax 0.4 mg Cap.sr] 0.4 mg PO DAILY 03/10/17 Allergies/Adverse Reactions: walnut Allergy (Unknown, Verified 03/10/17 05:00) Review of Systems ROS unobtainable: Due to endotracheal tube Physical Exam Vital Signs: Temp Pulse Resp BP Pulse Ox 97.7 F 83 13 126/71 H 100 03/13/17 19:27 03/13/17 18:00 03/13/17 18:07 03/13/17 18:07 03/13/17 18:07 Intake & Output 03/12/17 03/13/17 03/14/17 06:59 06:59 06:59 Intake Total 4049 2021 1447 Output Total 2908 5977 735 Balance 877 1770 712 Weight 71.5 kg 73.9 kg Exam: GENERAL: well-nourished and in no acute distress. Patient is intubated and sedated. Orientation cannot be checked HEAD: Atraumatic, normocephalic. EYES: Pupils equal round and reactive to light, extraocular movements could not be checked, sclera anicteric, conjunctiva are normal. ENT: TMs normal, nares patent, oropharynx clear without exudates. Moist mucous membranes. No oral ulcerations or bleeding gums noted NECK: supple without lymphadenopathy or JVD. Trachea is central. No cervical or axillary lymphadenopathy noted. Carotids are 2+ LUNGS: Breath sounds mostly clear to auscultation patient is noted to have bibasal crackles at the extreme bases. Mild bilateral wheezing noted CHEST: Palpation of the chest wall shows no significant chest wall tenderness or abnormalities. HEART: [place] CONSULTING SOLUTION MANAGER, No PSH, 2/6 MALIK aortic area, 1/6 mayer systolic murmur mitral area , no rubs or gallops. ABDOMEN: Soft, no significant tenderness appreciated, normoactive bowel sounds. No guarding, no rebound. No rigidity noted . No masses appreciated. EXTREMITIES: Pedal pulses are 1-2+, no calf tenderness noted, 1+ pedal edema noted. No clubbing or cyanosis. NEUROLOGICAL: The patient cannot participate in the neurological exam but no facial asymmetry noted. Extremities slightly hypotonic PSYCH: This cannot be evaluated. Patient cannot participate. SKIN: No significant ecchymosis, rash, or signs of pruritus noted. MUSCULOSKELETAL EXAM: No significant joint swelling noted. Patient cannot participate in musculoskeletal exam Results Laboratory Results: 03/13/17 03:56 03/13/17 03:56 03/13/17 03/13/17 03/13/17 03:56 03:56 06:11 WBC 13.6 H RBC 3.55 L Hgb 11.4 L Hct 33.6 L MCV 95 MCH 32.0 MCHC 33.8 RDW 14.8 H Plt Count 198 Seg Neutrophils % 82.2 H Lymphocytes % 14.2 Monocytes % 3.5 Eosinophils % 0.0 Basophils % 0.1 Absolute Neutrophils 11.2 H Absolute Lymphocytes 1.9 Absolute Monocytes 0.5 Absolute Eosinophils 0.0 Absolute Basophils 0.0 Carbonic Acid 0.83 L HCO3/H2CO3 Ratio 24:1 ABG pH 7.48 H ABG pCO2 27.7 L ABG pO2 162.8 H ABG HCO3 20.2 ABG O2 Saturation 99.2 H ABG Base Excess -2.0 FiO2 40% Sodium 137.3 Potassium 4.0 Chloride 109 H Carbon Dioxide 19 L Anion Gap 9 BUN 23 H Creatinine 0.73 Est GFR ( Amer) > 60 Est GFR (Non-Af Amer) > 60 Glucose 215 H Calcium 7.6 L Magnesium 2.3 Total Bilirubin 0.2 AST 19 ALT 30 Alkaline Phosphatase 56 Total Protein 5.2 L Albumin 2.8 L 03/10/17 16:20 Tracheal Aspirate Gram Stain - Final 03/10/17 16:20 Tracheal Aspirate Sputum Culture - Final NORMAL GEORGETTE 03/11/17 03/11/17 03/12/17 18:34 18:34 00:16 Creatine Kinase 80 65 CK-MB (CK-2) 4.50 Troponin I 0.055 03/12/17 03/12/17 03/12/17 00:16 01:06 06:30 Creatine Kinase 59 CK-MB (CK-2) Cancelled 4.65 H Troponin I Cancelled 0.677 03/12/17 06:30 Creatine Kinase CK-MB (CK-2) 4.59 H Troponin I 0.822 EKG Comments: Sinus tachycardia with minor ST segment depression inferior leads most likely rate related. Impressions: Chest X-Ray 03/13/17 06:00 IMPRESSION: 1. No significant interval change. Assessment & Plan - Diagnosis (1) Bradycardia Is this a current diagnosis for this admission?: Yes (2) Acute respiratory failure Qualifiers: Respiratory failure complication: hypoxia and hypercapnia Qualified Code(s) : J96.01 - Acute respiratory failure with hypoxia; J96.02 - Acute respiratory failure with hypercapnia; J96.02 - Acute respiratory failure with hypercapnia; J96.02 - Acute respiratory failure with hypercapnia Is this a current diagnosis for this admission?: Yes (3) COPD exacerbation Is this a current diagnosis for this admission?: Yes (4) Diabetes mellitus type 2 in nonobese Is this a current diagnosis for this admission?: Yes (5) Influenza A Is this a current diagnosis for this admission?: Yes (6) Cardiomyopathy Qualifiers: Cardiomyopathy type: unspecified Qualified Code(s): I42.9 - Cardiomyopathy , unspecified Is this a current diagnosis for this admission?: Yes (7) Coronary artery disease Qualifiers: Coronary Disease-Associated Artery/Lesion type: [place] artery [place] vs. transplanted heart: [place] heart Associated angina: angina presence unspecified Qualified Code(s): I25.10 - Atherosclerotic heart disease of [place] coronary artery without angina pectoris Is this a current diagnosis for this admission?: Yes (8) Troponin level elevated Is this a current diagnosis for this admission?: Yes - Notes Notes: Bradycardia: Intermittent. Initial EKG showed sinus tachycardia. Feel that bradycardia most likely related to vagal stimulation. Patient prone to vagal stimulation due to endotracheal tube. Recommend scopolamine patch. This was related to the nurse to write a verbal order. Acute respiratory failure: Patient placed on ventilator and is being artificially ventilated. Lead Programmer managing. COPD exacerbation: Patient being treated with steroids and bronchodilator therapy. Also continue antibiotic therapy. Management plans being deferred to welding lead burner and physician advisor. Diabetes: Recommend good control but avoid any hypo-or hyperglycemia. Influenza A: Agree with current treatment plans. Cardiomyopathy: Patient has a history of cardiomyopathy with depressed LVEF. Currently seems compensated. Gradually optimize underlying management. Coronary artery disease: Currently stable without any evidence to suggest ongoing ischemia. Troponin I elevation: Most likely related to metabolic reasons from respiratory failure, hypoxemia. Could also been related to severe tachycardia noted on presentation causing supply demand mismatch. EKGs has been nonacute. Previous cardiac evaluations were reviewed. Recommend optimization of medical management for underlying CAD. - Time Time Spent: 30 to 50 Minutes - CODE STATUS was discussed, patient remains full code. Surrogate decision-maker unchanged. Multiple medical problems were addressed. More than 50% of the time spent coordinating care, discussing management plans with involved caregivers. Management plans discussed with involved personnels. Medical decision making was of moderate to high complexity , patient's has multiple comorbidities. Medications reviewed and adjusted accordingly: Yes
[2017-03-15] MEDS: LINEZOLID 300 ML IV SCH ×2 (10:39→23:11)
[2017-03-15] MEDS: INSULIN LISPRO 100 UNIT/ML 3 ML VIAL SUBCUT PRN ×2 (12:45→17:27)
[2017-03-15] MEDS: NORMAL SALINE 1000 ML 1,000 ML IV PRN (12:45)
--- NOTE | 2017-03-15 20:32 | PDOC PROGRESS REPORT ---
Subjective Progress Note for:: 03/15/17 Subjective:: Patient noted to be doing well without any significant symptoms. He was successfully extubated and has done well. Telemetry strips shows normal sinus rhythm without any sustained tacky or bradycardia. On questioning patient denied any chest, neck discomfort. Medications reviewed. Reason For Visit: COPD EXACERBATION,RESPIRATORY FAILURE,INFLUENZA Physical Exam Vital Signs: Temp Pulse Resp BP Pulse Ox 97.2 F 71 17 151/82 H 99 03/15/17 18:00 03/15/17 18:00 03/15/17 18:00 03/15/17 18:00 03/15/17 18:00 Intake & Output 03/14/17 03/15/17 03/16/17 06:59 06:59 06:59 Intake Total 2781 2568 1171 Output Total 1285 2180 1210 Balance 1496 388 -39 Weight 75.3 kg 77.9 kg Results Laboratory Results: 03/15/17 03:47 03/15/17 03:47 03/15/17 03/15/17 03:47 03:47 WBC 14.5 H RBC 3.44 L Hgb 11.0 L Hct 32.6 L MCV 95 MCH 31.9 MCHC 33.8 RDW 14.8 H Plt Count 168 Seg Neutrophils % 89.7 H Lymphocytes % 7.7 L Monocytes % 2.5 L Eosinophils % 0.0 Basophils % 0.1 Absolute Neutrophils 13.0 H Absolute Lymphocytes 1.1 Absolute Monocytes 0.4 Absolute Eosinophils 0.0 Absolute Basophils 0.0 Sodium 138.8 Potassium 3.9 Chloride 107 Carbon Dioxide 24 Anion Gap 8 BUN 18 Creatinine 0.65 Est GFR ( Amer) > 60 Est GFR (Non-Af Amer) > 60 Glucose 254 H Calcium 7.9 L Magnesium 2.3 Total Bilirubin 0.5 AST 14 L ALT 34 Alkaline Phosphatase 54 Total Protein 5.2 L Albumin 2.8 L 03/11/17 03/11/17 03/12/17 18:34 18:34 00:16 Creatine Kinase 80 65 CK-MB (CK-2) 4.50 Troponin I 0.055 03/12/17 03/12/17 03/12/17 00:16 01:06 06:30 Creatine Kinase 59 CK-MB (CK-2) Cancelled 4.65 H Troponin I Cancelled 0.677 03/12/17 06:30 Creatine Kinase CK-MB (CK-2) 4.59 H Troponin I 0.822 EKG Comments: Patient maintaining sinus rhythm without any sustained tacky or bradycardia arrhythmias. Impressions: Chest X-Ray 03/15/17 06:00 IMPRESSION: 1. Interval removal of NG tube and endotracheal tube. Otherwise stable appearance of the chest. Assessment & Plan - Diagnosis (1) Acute respiratory failure Qualifiers: Respiratory failure complication: hypoxia and hypercapnia Qualified Code(s) : J96.01 - Acute respiratory failure with hypoxia; J96.02 - Acute respiratory failure with hypercapnia; J96.02 - Acute respiratory failure with hypercapnia; J96.02 - Acute respiratory failure with hypercapnia Is this a current diagnosis for this admission?: Yes (2) COPD exacerbation Is this a current diagnosis for this admission?: Yes (3) Diabetes mellitus type 2 in nonobese Is this a current diagnosis for this admission?: Yes (4) Cardiomyopathy Qualifiers: Cardiomyopathy type: unspecified Qualified Code(s): I42.9 - Cardiomyopathy , unspecified Is this a current diagnosis for this admission?: Yes (6) Coronary artery disease Qualifiers: Coronary Disease-Associated Artery/Lesion type: [place] artery [place] vs. transplanted heart: [place] heart Associated angina: angina presence unspecified Qualified Code(s): I25.10 - Atherosclerotic heart disease of [place] coronary artery without angina pectoris Is this a current diagnosis for this admission?: Yes (7) Bradycardia Is this a current diagnosis for this admission?: Yes (8) Troponin level elevated Is this a current diagnosis for this admission?: Yes - Notes Notes: Patient has been noted to be extubated. Patient noted with normal rhythm, normal heart rate and stable vitals. Bradycardia: Intermittent. Initial EKG showed sinus tachycardia. Feel that bradycardia most likely related to vagal stimulation. Bradycardia felt related to vagal stimulation due to endotracheal tube. Will consider discontinuing scopolamine patch. Acute respiratory failure: Currently stable, maintaining adequate ventilation on extubation. COPD exacerbation: Patient being treated with steroids and bronchodilator therapy. Also continue antibiotic therapy. Management plans being deferred to locomotive engineer electric and biology intern. Diabetes: Recommend good control but avoid any hypo-or hyperglycemia. Influenza A: Agree with current treatment plans. Cardiomyopathy: Patient has a history of cardiomyopathy with depressed LVEF. Currently seems compensated. Gradually optimize underlying management. Coronary artery disease: Currently stable without any evidence to suggest ongoing ischemia. Troponin I elevation: [place] to be related to supply demand mismatch and due to metabolic reasons. Previous cardiac evaluations were reviewed. Recommend optimization of medical management. - Time Time with patient: Greater than 35 minutes - CODE STATUS was discussed, patient remains full code. Surrogate decision-maker unchanged. Multiple medical problems were addressed. More than 50% of the time spent coordinating care, discussing management plans with involved caregivers. Management plans discussed with involved personnels. Medical decision making was of moderate to high complexity, patient's has multiple comorbidities. Medications reviewed and adjusted accordingly: Yes
--- NOTE | 2017-03-15 22:11 | PDOC PROGRESS REPORT ---
Subjective Progress Note for:: 03/15/17 Subjective:: Patient was seen by the bedside, still in ICU, extubated, urine culture grew VRE , patient to be downgraded to telemetry floor from ICU Reason For Visit: COPD EXACERBATION,RESPIRATORY FAILURE,INFLUENZA Physical Exam Vital Signs: Temp Pulse Resp BP Pulse Ox 97.2 F 58 L 20 134/69 H 100 03/15/17 18:00 03/15/17 20:00 03/15/17 20:51 03/15/17 20:51 03/15/17 20:51 Intake & Output 03/14/17 03/15/17 03/16/17 06:59 06:59 06:59 Intake Total 2781 2568 1171 Output Total 1285 2180 1420 Balance 1496 388 -249 Weight 75.3 kg 77.9 kg General appearance: PRESENT: no acute distress Head exam: PRESENT: atraumatic, normocephalic Eye exam: PRESENT: PERRLA Neck exam: PRESENT: full ROM Respiratory exam: PRESENT: clear to auscultation vangie Cardiovascular exam: PRESENT: RRR, +S1, +S2 Pulses: PRESENT: normal dorsalis pedis pul, +2 pedal pulses bilateral Vascular exam: PRESENT: normal capillary refill GI/Abdominal exam: PRESENT: normal bowel sounds, soft Rectal exam: PRESENT: deferred Neurological exam: PRESENT: alert Psychiatric exam: PRESENT: appropriate affect, normal mood Skin exam: PRESENT: dry, intact, warm Results Laboratory Results: 03/15/17 03:47 03/15/17 03:47 03/15/17 03/15/17 03:47 03:47 WBC 14.5 H RBC 3.44 L Hgb 11.0 L Hct 32.6 L MCV 95 MCH 31.9 MCHC 33.8 RDW 14.8 H Plt Count 168 Seg Neutrophils % 89.7 H Lymphocytes % 7.7 L Monocytes % 2.5 L Eosinophils % 0.0 Basophils % 0.1 Absolute Neutrophils 13.0 H Absolute Lymphocytes 1.1 Absolute Monocytes 0.4 Absolute Eosinophils 0.0 Absolute Basophils 0.0 Sodium 138.8 Potassium 3.9 Chloride 107 Carbon Dioxide 24 Anion Gap 8 BUN 18 Creatinine 0.65 Est GFR ( Amer) > 60 Est GFR (Non-Af Amer) > 60 Glucose 254 H Calcium 7.9 L Magnesium 2.3 Total Bilirubin 0.5 AST 14 L ALT 34 Alkaline Phosphatase 54 Total Protein 5.2 L Albumin 2.8 L 03/11/17 03/11/17 03/12/17 18:34 18:34 00:16 Creatine Kinase 80 65 CK-MB (CK-2) 4.50 Troponin I 0.055 03/12/17 03/12/17 03/12/17 00:16 01:06 06:30 Creatine Kinase 59 CK-MB (CK-2) Cancelled 4.65 H Troponin I Cancelled 0.677 03/12/17 06:30 Creatine Kinase CK-MB (CK-2) 4.59 H Troponin I 0.822 Impressions: Chest X-Ray 03/15/17 06:00 IMPRESSION: 1. Interval removal of NG tube and endotracheal tube. Otherwise stable appearance of the chest. Assessment & Plan - Diagnosis (1) Acute respiratory failure Qualifiers: Respiratory failure complication: hypoxia and hypercapnia Qualified Code(s) : J96.01 - Acute respiratory failure with hypoxia; J96.02 - Acute respiratory failure with hypercapnia; J96.02 - Acute respiratory failure with hypercapnia; J96.02 - Acute respiratory failure with hypercapnia Is this a current diagnosis for this admission?: Yes (2) COPD exacerbation Is this a current diagnosis for this admission?: Yes (3) Diabetes mellitus type 2 in nonobese Is this a current diagnosis for this admission?: Yes (4) VRE (vancomycin-resistant Enterococci) infection Is this a current diagnosis for this admission?: Yes (5) UTI (urinary tract infection) due to Enterococcus Is this a current diagnosis for this admission?: Yes - Plan Summary Plan Summary: Patient will continue Zyvox for VRE, we will discontinue Solu-Medrol, start prednisone
[2017-03-16] MEDS: PIPERACILLIN SODIUM/TAZOBACTAM 3.375 GM in NORMAL SALINE 100 ML IV SCH ×5 (01:38→23:18)
[2017-03-16] MEDS: IPRATROPIUM/ALBUTEROL 0.5-2.5 MG/3 ML AMPUL NEB SCH ×4 (02:15→20:21)
[2017-03-16 04:28] LABS: ABSOLUTE LYMPHOCYTES (AUTO) 0.9 10^3/uL (0.5-4.7); ABSOLUTE MONOCYTES (AUTO) 0.3 10^3/uL (0.1-1.4); ABSOLUTE NEUT (AUTO) 14.3 10^3/uL (1.7-8.2); HEMATOCRIT 32.3 % (37.9-51.0); HEMOGLOBIN 11.1 g/dL (13.5-17.0); LYMPHOCYTES % (AUTO) 5.6 % (13-45); MEAN CORPUSCULAR HEMOGLOBIN 32.2 pg (27.0-33.4); MEAN CORPUSCULAR HGB CONC 34.3 g/dL (32.0-36.0); MEAN CORPUSCULAR VOLUME 94 fl (80-97); PLATELET COUNT 173 10^3/uL (150-450); RED BLOOD COUNT 3.43 10^6/uL (4.35-5.55); RED CELL DISTRIBUTION WIDTH 14.7 % (11.5-14.0); SEGMENTED NEUTROPHILS % (AUTO) 92.4 % (42-78); TOTAL CELLS COUNTED % (AUTO) 100 %; WHITE BLOOD COUNT 15.5 10^3/uL (4.0-10.5)
[2017-03-16 04:45] LABS: ALANINE AMINOTRANSFERASE 37 U/L (21-72); ALKALINE PHOSPHATASE 56 U/L (38-126); ANION GAP 10 (5-19); ASPARTATE AMINO TRANSFERASE 14 U/L (17-59); BILIRUBIN,DIRECT 0.4 mg/dL (0.0-0.4); BILIRUBIN,TOTAL 0.5 mg/dL (0.2-1.3); BLOOD UREA NITROGEN 15 mg/dL (7-20); CALCIUM 7.9 mg/dL (8.4-10.2); CARBON DIOXIDE 23 mmol/L (22-30); CHLORIDE 104 mmol/L (98-107); GLUCOSE 258 mg/dL (75-110); POTASSIUM 3.5 mmol/L (3.6-5.0); SODIUM 136.5 mmol/L (137-145); TOTAL PROTEIN 5.4 g/dL (6.3-8.2)
--- NOTE | 2017-03-16 07:30 | RADIOLOGY REPORT (SQ) ---
EXAM DESCRIPTION: CHEST SINGLE VIEW CLINICAL HISTORY: resp failure COMPARISON: 03/14/2017 FINDINGS: Single frontal view of the chest. Cardiac mediastinal silhouette is unremarkable. Hazy right basilar opacity. No pneumothorax or pleural effusion. No acute osseous abnormalities. Upper abdominal soft tissues are unremarkable. IMPRESSION: 1. Stable appearance of the chest.
[2017-03-16] MEDS: LANSOPRAZOLE 30 MG TAB.RAP.DR NG SCH (07:51)
[2017-03-16] MEDS: METHYLPREDNISOLONE INJ 125 MG/2 ML SDV IV SCH ×2 (07:52→13:13)
[2017-03-16] MEDS: LINEZOLID 300 ML IV SCH ×2 (09:13→23:17)
[2017-03-16] MEDS: ENOXAPARIN SODIUM INJ 40 MG/0.4 ML DISP.SYRIN SUBCUT SCH (09:13)
--- NOTE | 2017-03-16 09:55 | PDOC PROGRESS REPORT ---
Subjective Progress Note for:: 03/16/17 Subjective:: Patient noted to be doing well without any significant symptoms. He was successfully extubated and has done well, day before yesterday and has done extremely well, he looks comfortable without any chest pain. Telemetry strips shows normal sinus rhythm without any sustained tacky or bradycardia. On questioning patient denied any chest, neck discomfort. Medications reviewed. Reason For Visit: COPD EXACERBATION,RESPIRATORY FAILURE,INFLUENZA Physical Exam Vital Signs: Temp Pulse Resp BP Pulse Ox 97.2 F 75 18 159/91 H 100 03/15/17 18:00 03/16/17 08:28 03/16/17 08:28 03/16/17 06:51 03/16/17 08:28 Intake & Output 03/15/17 03/16/17 03/17/17 06:59 06:59 06:59 Intake Total 2568 1171 Output Total 2180 2720 225 Balance 388 -1549 -225 Weight 77.9 kg Exam: GENERAL: well-nourished and in no acute distress. Alert and oriented x3 HEAD: Atraumatic, normocephalic. EYES: Pupils equal round and reactive to light, extraocular movements intact, sclera anicteric, conjunctiva are normal. ENT: TMs normal, nares patent, oropharynx clear without exudates. Moist mucous membranes. No oral ulcerations or bleeding gums noted NECK: supple without lymphadenopathy. Trachea is central. No cervical or axillary lymphadenopathy noted. Carotids are 2+, JVD WNL LUNGS: Respiration seems nonlabored, no significant accessory muscle action noted. Few bibasilar crackles noted. No wheezes rales or rhonchi noted. No significant dullness noted on percussion. CHEST: Palpation of the chest wall shows no significant chest wall tenderness. No other significant abnormalities noted. 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 ABDOMEN: Soft, no significant tenderness appreciated, normoactive bowel sounds. No guarding, no rebound. No rigidity noted . No masses appreciated. EXTREMITIES: Pedal pulses are 1-2+, no calf tenderness noted. No clubbing or cyanosis.trace to 1+ pedal edema noted NEUROLOGICAL: Focused neurological exam showed no significant neurologic deficit. Normal speech, no focal weakness appreciated. PSYCH: Normal mood, normal affect. Judgment and insight within normal limits. SKIN: No significant ecchymosis, rash, ulcerations or signs of pruritus noted. MUSCULOSKELETAL EXAM: No significant joint swelling noted. Results Laboratory Results: 03/16/17 04:02 03/16/17 04:02 03/16/17 03/16/17 04:02 04:02 WBC 15.5 H RBC 3.43 L Hgb 11.1 L Hct 32.3 L MCV 94 MCH 32.2 MCHC 34.3 RDW 14.7 H Plt Count 173 Seg Neutrophils % 92.4 H Lymphocytes % 5.6 L Monocytes % 2.0 L Eosinophils % 0.0 Basophils % 0.0 Absolute Neutrophils 14.3 H Absolute Lymphocytes 0.9 Absolute Monocytes 0.3 Absolute Eosinophils 0.0 Absolute Basophils 0.0 Sodium 136.5 L Potassium 3.5 L Chloride 104 Carbon Dioxide 23 Anion Gap 10 BUN 15 Creatinine 0.59 Est GFR ( Amer) > 60 Est GFR (Non-Af Amer) > 60 Glucose 258 H Calcium 7.9 L Total Bilirubin 0.5 AST 14 L ALT 37 Alkaline Phosphatase 56 Total Protein 5.4 L Albumin 3.0 L 03/11/17 03/11/17 03/12/17 18:34 18:34 00:16 Creatine Kinase 80 65 CK-MB (CK-2) 4.50 Troponin I 0.055 03/12/17 03/12/17 03/12/17 00:16 01:06 06:30 Creatine Kinase 59 CK-MB (CK-2) Cancelled 4.65 H Troponin I Cancelled 0.677 03/12/17 06:30 Creatine Kinase CK-MB (CK-2) 4.59 H Troponin I 0.822 EKG Comments: Shows sinus rhythm without any sustained tacky or bradycardia arrhythmias. Impressions: Chest X-Ray 03/16/17 06:00 IMPRESSION: 1. Stable appearance of the chest. Assessment & Plan - Diagnosis (1) Acute respiratory failure Qualifiers: Respiratory failure complication: hypoxia and hypercapnia Qualified Code(s) : J96.01 - Acute respiratory failure with hypoxia; J96.02 - Acute respiratory failure with hypercapnia; J96.02 - Acute respiratory failure with hypercapnia; J96.02 - Acute respiratory failure with hypercapnia Is this a current diagnosis for this admission?: Yes (2) COPD exacerbation Is this a current diagnosis for this admission?: Yes (3) Diabetes mellitus type 2 in nonobese Is this a current diagnosis for this admission?: Yes (4) Cardiomyopathy Qualifiers: Cardiomyopathy type: unspecified Qualified Code(s): I42.9 - Cardiomyopathy , unspecified Is this a current diagnosis for this admission?: Yes (6) Coronary artery disease Qualifiers: Coronary Disease-Associated Artery/Lesion type: [place] artery [place] vs. transplanted heart: [place] heart Associated angina: angina presence unspecified Qualified Code(s): I25.10 - Atherosclerotic heart disease of [place] coronary artery without angina pectoris Is this a current diagnosis for this admission?: Yes (7) Bradycardia Is this a current diagnosis for this admission?: Yes (8) Troponin level elevated Is this a current diagnosis for this admission?: Yes - Notes Notes: Patient looking much improved. Recommend stopping scopolamine patch now. Bradycardia: Resolved. No significant bradycardia noted on telemetry monitoring review. Will discontinue the scopolamine patch. Acute respiratory failure: Currently resolved. Patient maintaining good ventilation. COPD exacerbation: Patient being treated with steroids and bronchodilator therapy. Also continue antibiotic therapy. Management plans being deferred to payment collector and shactor helper. Diabetes: Recommend good control but avoid any hypo-or hyperglycemia. Influenza A: Agree with current treatment plans. Cardiomyopathy: Patient has a history of cardiomyopathy with depressed LVEF. Currently seems compensated. Gradually optimize underlying management. Coronary artery disease: Currently stable without any evidence to suggest ongoing ischemia. Troponin I elevation: [place] to be related to supply demand mismatch and due to metabolic reasons. Previous cardiac evaluations were reviewed. Recommend optimization of medical management. - Time Time with patient: 15-25 minutes Medications reviewed and adjusted accordingly: Yes
[2017-03-16] MEDS: INSULIN LISPRO 100 UNIT/ML 3 ML VIAL SUBCUT PRN ×2 (12:00→17:07)
[2017-03-16 12:40] LABS: ARTERIAL BLOOD BASE EXCESS 1.4 mmol/L; ARTERIAL BLOOD H2CO3 1.05 mmol/L (1.05-1.35); ARTERIAL BLOOD HCO3 24.8 mmol/L (20-26); ARTERIAL BLOOD O2 SATURATION 96.1 % (94-98); ARTERIAL BLOOD PCO2 34.8 mmHg (35-45); ARTERIAL BLOOD PH 7.47 (7.35-7.45); ARTERIAL BLOOD PO2 76.7 mmHg (80-100); ARTERIAL BLOOD TOTAL CO2 25.8 mmol/L (23-27)
[2017-03-16 12:41] LABS: ARTERIAL BLOOD FIO2 ROOM AIR
[2017-03-16] MEDS ORDERED: PREDNISONE 20 MG TABLET PO ONE (14:30)
--- NOTE | 2017-03-16 18:32 | PDOC PROGRESS REPORT ---
Subjective Progress Note for:: 03/16/17 Subjective:: Patient was seen by the bedside he has no new complaint Reason For Visit: COPD EXACERBATION,RESPIRATORY FAILURE,INFLUENZA Physical Exam Vital Signs: Temp Pulse Resp BP Pulse Ox 97.5 F 102 H 21 H 166/86 H 97 03/16/17 12:00 03/16/17 14:00 03/16/17 18:00 03/16/17 17:51 03/16/17 18:00 Intake & Output 03/15/17 03/16/17 03/17/17 06:59 06:59 06:59 Intake Total 2568 1171 1171 Output Total 2180 0720 0552 Balance 323 -0586 -4849 Weight 77.9 kg 74.8 kg General appearance: PRESENT: no acute distress Eye exam: PRESENT: PERRLA Respiratory exam: PRESENT: clear to auscultation vangie Cardiovascular exam: PRESENT: +S1, +S2 GI/Abdominal exam: PRESENT: soft Neurological exam: PRESENT: alert, CN II-XII grossly intact Results Laboratory Results: 03/16/17 04:02 03/16/17 04:02 03/16/17 03/16/17 03/16/17 04:02 04:02 12:08 WBC 15.5 H RBC 3.43 L Hgb 11.1 L Hct 32.3 L MCV 94 MCH 32.2 MCHC 34.3 RDW 14.7 H Plt Count 173 Seg Neutrophils % 92.4 H Lymphocytes % 5.6 L Monocytes % 2.0 L Eosinophils % 0.0 Basophils % 0.0 Absolute Neutrophils 14.3 H Absolute Lymphocytes 0.9 Absolute Monocytes 0.3 Absolute Eosinophils 0.0 Absolute Basophils 0.0 Carbonic Acid 1.05 HCO3/H2CO3 Ratio 23:1 ABG pH 7.47 H ABG pCO2 34.8 L ABG pO2 76.7 L ABG HCO3 24.8 ABG O2 Saturation 96.1 ABG Base Excess 1.4 FiO2 ROOM AIR Sodium 136.5 L Potassium 3.5 L Chloride 104 Carbon Dioxide 23 Anion Gap 10 BUN 15 Creatinine 0.59 Est GFR ( Amer) > 60 Est GFR (Non-Af Amer) > 60 Glucose 258 H Calcium 7.9 L Total Bilirubin 0.5 AST 14 L ALT 37 Alkaline Phosphatase 56 Total Protein 5.4 L Albumin 3.0 L 03/11/17 03/11/17 03/12/17 18:34 18:34 00:16 Creatine Kinase 80 65 CK-MB (CK-2) 4.50 Troponin I 0.055 03/12/17 03/12/17 03/12/17 00:16 01:06 06:30 Creatine Kinase 59 CK-MB (CK-2) Cancelled 4.65 H Troponin I Cancelled 0.677 03/12/17 06:30 Creatine Kinase CK-MB (CK-2) 4.59 H Troponin I 0.822 Impressions: Chest X-Ray 03/16/17 06:00 IMPRESSION: 1. Stable appearance of the chest. Assessment & Plan - Diagnosis (1) Acute respiratory failure Qualifiers: Respiratory failure complication: hypoxia and hypercapnia Qualified Code(s) : J96.01 - Acute respiratory failure with hypoxia; J96.02 - Acute respiratory failure with hypercapnia; J96.02 - Acute respiratory failure with hypercapnia; J96.02 - Acute respiratory failure with hypercapnia Is this a current diagnosis for this admission?: Yes (2) COPD exacerbation Is this a current diagnosis for this admission?: Yes (3) Diabetes mellitus type 2 in nonobese Is this a current diagnosis for this admission?: Yes (4) VRE (vancomycin-resistant Enterococci) infection Is this a current diagnosis for this admission?: Yes (5) UTI (urinary tract infection) due to Enterococcus Is this a current diagnosis for this admission?: Yes
[2017-03-17] MEDS: IPRATROPIUM/ALBUTEROL 0.5-2.5 MG/3 ML AMPUL NEB SCH ×4 (02:28→20:26)
[2017-03-17 04:04] LABS: ABSOLUTE LYMPHOCYTES (AUTO) 0.9 10^3/uL (0.5-4.7); ABSOLUTE MONOCYTES (AUTO) 0.7 10^3/uL (0.1-1.4); BASOPHILS % (AUTO) 0.1 % (0-2); HEMATOCRIT 35.9 % (37.9-51.0); HEMOGLOBIN 12.2 g/dL (13.5-17.0); LYMPHOCYTES % (AUTO) 5.9 % (13-45); MEAN CORPUSCULAR HEMOGLOBIN 31.8 pg (27.0-33.4); MEAN CORPUSCULAR VOLUME 94 fl (80-97); MONOCYTES % (AUTO) 4.2 % (3-13); PLATELET COUNT 197 10^3/uL (150-450); RED BLOOD COUNT 3.84 10^6/uL (4.35-5.55); RED CELL DISTRIBUTION WIDTH 14.6 % (11.5-14.0); SEGMENTED NEUTROPHILS % (AUTO) 89.8 % (42-78); TOTAL CELLS COUNTED % (AUTO) 100 %; WHITE BLOOD COUNT 15.6 10^3/uL (4.0-10.5)
[2017-03-17 04:24] LABS: ANION GAP 9 (5-19); BLOOD UREA NITROGEN 11 mg/dL (7-20); CALCIUM 8.4 mg/dL (8.4-10.2); CARBON DIOXIDE 28 mmol/L (22-30); CHLORIDE 99 mmol/L (98-107); GLUCOSE 284 mg/dL (75-110); SODIUM 135.9 mmol/L (137-145)
[2017-03-17 04:37] LABS: POTASSIUM 2.9 mmol/L (3.6-5.0)
[2017-03-17] MEDS: PIPERACILLIN SODIUM/TAZOBACTAM 3.375 GM in NORMAL SALINE 100 ML IV SCH (07:33)
[2017-03-17] MEDS: LANSOPRAZOLE 30 MG TAB.RAP.DR NG SCH (07:34)
[2017-03-17] MEDS: PREDNISONE 20 MG TABLET PO SCH (10:03)
[2017-03-17] MEDS: ENOXAPARIN SODIUM INJ 40 MG/0.4 ML DISP.SYRIN SUBCUT SCH (10:04)
[2017-03-17] MEDS: INSULIN LISPRO 100 UNIT/ML 3 ML VIAL SUBCUT PRN ×2 (10:05→23:32)
[2017-03-17] MEDS: LINEZOLID 300 ML IV SCH ×2 (10:06→23:32)
--- NOTE | 2017-03-17 13:01 | PDOC PROGRESS REPORT ---
Subjective Progress Note for:: 03/17/17 Subjective:: Patient noted to be doing well without any significant symptoms. Patient still in the unit as there are no floor beds to transfer him out. He has done extremely well, he looks comfortable without any chest pain. Telemetry strips shows normal sinus rhythm without any sustained tacky or bradycardia. On questioning patient denied any chest, neck discomfort. Medications reviewed. Reason For Visit: COPD EXACERBATION,RESPIRATORY FAILURE,INFLUENZA Physical Exam Vital Signs: Temp Pulse Resp BP Pulse Ox 97.5 F 97 20 135/80 H 99 03/16/17 12:00 03/17/17 08:12 03/17/17 11:00 03/17/17 08:14 03/17/17 08:00 Intake & Output 03/16/17 03/17/17 03/18/17 06:59 06:59 06:59 Intake Total 1171 2701 Output Total 2720 5485 1430 Balance -1549 -2784 -1430 Weight 74.8 kg Exam: GENERAL: well-nourished and in no acute distress. Alert and oriented x3 HEAD: Atraumatic, normocephalic. EYES: Pupils equal round and reactive to light, extraocular movements intact, sclera anicteric, conjunctiva are normal. ENT: TMs normal, nares patent, oropharynx clear without exudates. Moist mucous membranes. No oral ulcerations or bleeding gums noted NECK: supple without lymphadenopathy. Trachea is central. No cervical or axillary lymphadenopathy noted. Carotids are 2+, JVD WNL LUNGS: Respiration seems nonlabored, no significant accessory muscle action noted. Breath sounds clear to auscultation bilaterally and equal noted. No wheezes rales or rhonchi noted. No significant dullness noted on percussion. CHEST: Palpation of the chest wall shows no significant chest wall tenderness. No other significant abnormalities noted. 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 ABDOMEN: Soft, no significant tenderness appreciated, normoactive bowel sounds. No guarding, no rebound. No rigidity noted . No masses appreciated. EXTREMITIES: Pedal pulses are 1-2+, no calf tenderness noted. No clubbing or cyanosis.trace to 1+ pedal edema noted NEUROLOGICAL: Focused neurological exam showed no significant neurologic deficit. Normal speech, no focal weakness appreciated. PSYCH: Normal mood, normal affect. Judgment and insight within normal limits. SKIN: No significant ecchymosis, rash, ulcerations or signs of pruritus noted. MUSCULOSKELETAL EXAM: No significant joint swelling noted. Results Laboratory Results: 03/17/17 03:43 03/17/17 03:43 03/17/17 03/17/17 03/17/17 03:43 03:43 03:43 WBC 15.6 H RBC 3.84 L Hgb 12.2 L Hct 35.9 L MCV 94 MCH 31.8 MCHC 34.0 RDW 14.6 H Plt Count 197 Seg Neutrophils % 89.8 H Lymphocytes % 5.9 L Monocytes % 4.2 Eosinophils % 0.0 Basophils % 0.1 Absolute Neutrophils 14.0 H Absolute Lymphocytes 0.9 Absolute Monocytes 0.7 Absolute Eosinophils 0.0 Absolute Basophils 0.0 Sodium 135.9 L Potassium 2.9 L* Chloride 99 Carbon Dioxide 28 Anion Gap 9 BUN 11 Creatinine 0.54 Est GFR ( Amer) > 60 Est GFR (Non-Af Amer) > 60 Glucose 284 H Calcium 8.4 Magnesium 1.9 03/11/17 03/11/17 03/12/17 18:34 18:34 00:16 Creatine Kinase 80 65 CK-MB (CK-2) 4.50 Troponin I 0.055 03/12/17 03/12/17 03/12/17 00:16 01:06 06:30 Creatine Kinase 59 CK-MB (CK-2) Cancelled 4.65 H Troponin I Cancelled 0.677 03/12/17 06:30 Creatine Kinase CK-MB (CK-2) 4.59 H Troponin I 0.822 Impressions: Chest X-Ray 03/16/17 06:00 IMPRESSION: 1. Stable appearance of the chest. Assessment & Plan - Diagnosis (1) Acute respiratory failure Qualifiers: Respiratory failure complication: hypoxia and hypercapnia Qualified Code(s) : J96.01 - Acute respiratory failure with hypoxia; J96.02 - Acute respiratory failure with hypercapnia; J96.02 - Acute respiratory failure with hypercapnia; J96.02 - Acute respiratory failure with hypercapnia Is this a current diagnosis for this admission?: Yes (2) COPD exacerbation Is this a current diagnosis for this admission?: Yes (3) Diabetes mellitus type 2 in nonobese Is this a current diagnosis for this admission?: Yes (4) Cardiomyopathy Qualifiers: Cardiomyopathy type: unspecified Qualified Code(s): I42.9 - Cardiomyopathy , unspecified Is this a current diagnosis for this admission?: Yes (6) Coronary artery disease Qualifiers: Coronary Disease-Associated Artery/Lesion type: [place] artery [place] vs. transplanted heart: [place] heart Associated angina: angina presence unspecified Qualified Code(s): I25.10 - Atherosclerotic heart disease of [place] coronary artery without angina pectoris Is this a current diagnosis for this admission?: Yes (7) Bradycardia Is this a current diagnosis for this admission?: Yes (8) Troponin level elevated Is this a current diagnosis for this admission?: Yes - Notes Notes: Restarted patient on carvedilol, lisinopril at low-dose. Added spironolactone, Plavix and Lipitor for optimization of patient's current cardiac status. Patient looking much improved. Bradycardia: Resolved. No significant bradycardia noted on telemetry monitoring review. Will discontinue the scopolamine patch. Reinstitute low- dose beta-leslie for his cardiomyopathy and CAD. Acute respiratory failure: Currently resolved. Patient maintaining good ventilation. Stable. COPD exacerbation: Patient being treated with steroids and bronchodilator therapy. Also continue antibiotic therapy. Management plans being deferred to clinic md associate and training and development project leader. Diabetes: Recommend good control but avoid any hypo-or hyperglycemia. Influenza A: Agree with current treatment plans. Cardiomyopathy: Patient has a history of cardiomyopathy with depressed LVEF. Currently seems compensated. Gradually optimize underlying management. We will add carvedilol and low-dose LIANE inhibitor. Coronary artery disease: Currently stable without any evidence to suggest ongoing ischemia. Continue/reinstitute with antiplatelet and statin therapy. Troponin I elevation: [place] to be related to supply demand mismatch and due to metabolic reasons. Previous cardiac evaluations were reviewed. Recommend optimization of medical management. - Time Time with patient: Greater than 35 minutes - CODE STATUS was discussed, patient remains full code. Surrogate decision-maker unchanged. Multiple medical problems were addressed. More than 50% of the time spent coordinating care, discussing management plans with involved caregivers. Management plans discussed with involved personnels. Medical decision making was of moderate to high complexity, patient's has multiple comorbidities. Multiple medication changes were made. Rationale for reinstituting these reviewed. Medications reviewed and adjusted accordingly: Yes
[2017-03-17 13:58] LABS: ALANINE AMINOTRANSFERASE 37 U/L (21-72); ALBUMIN 3.6 g/dL (3.5-5.0); ALKALINE PHOSPHATASE 71 U/L (38-126); ANION GAP 8 (5-19); ASPARTATE AMINO TRANSFERASE 18 U/L (17-59); BILIRUBIN,DIRECT 0.3 mg/dL (0.0-0.4); BILIRUBIN,TOTAL 0.7 mg/dL (0.2-1.3); BLOOD UREA NITROGEN 10 mg/dL (7-20); CALCIUM 8.4 mg/dL (8.4-10.2); CARBON DIOXIDE 34 mmol/L (22-30); CHLORIDE 95 mmol/L (98-107); GLUCOSE 199 mg/dL (75-110); POTASSIUM 3.1 mmol/L (3.6-5.0); SODIUM 137.1 mmol/L (137-145); TOTAL PROTEIN 6.1 g/dL (6.3-8.2)
[2017-03-17] MEDS ORDERED: POTASSIUM CHLORIDE 20 MEQ/15 ML UDCUP PO ONE (14:30)
[2017-03-17] MEDS ORDERED: CARVEDILOL 3.125 MG TABLET PO ONE (16:00)
[2017-03-17] MEDS ORDERED: CLOPIDOGREL BISULFATE 75 MG TABLET PO ONE (16:00)
[2017-03-17] MEDS ORDERED: LISINOPRIL 5 MG TABLET PO ONE (16:00)
[2017-03-17] MEDS ORDERED: SPIRONOLACTONE 25 MG TABLET PO ONE (16:00)
--- NOTE | 2017-03-17 16:00 | PDOC PROGRESS REPORT ---
Subjective Progress Note for:: 03/12/17 Subjective:: reintubated Reason For Visit: COPD EXACERBATION,RESPIRATORY FAILURE,INFLUENZA Physical Exam Vital Signs: Temp Pulse Resp BP Pulse Ox 97.5 F 58 L 12 142/76 H 98 03/14/17 16:00 03/14/17 16:00 03/14/17 16:00 03/14/17 16:00 03/14/17 16:00 Intake & Output 03/13/17 03/14/17 03/15/17 06:59 06:59 06:59 Intake Total 3271 2781 Output Total 1495 1285 1160 Balance 1776 1496 -1160 Weight 73.9 kg 75.3 kg General appearance: PRESENT: cooperative, obese. ABSENT: disheveled, mild distress, morbidly obese, severe distress Head exam: PRESENT: normocephalic Eye exam: PRESENT: conjunctiva pale. ABSENT: conjunctival injection, conjunctiva pink, nystagmus, periorbital swelling, scleral icterus Mouth exam: PRESENT: dry mucosa, neck supple, tongue midline, other - ET tube in place. ABSENT: laceration, moist Neck exam: PRESENT: tracheostomy. ABSENT: carotid bruit, JVD, lymphadenopathy, thyromegaly, tracheal deviation Respiratory exam: PRESENT: clear to auscultation vangie, decreased breath sounds, prolonged expiratory phas, rales, rhonchi, unlabored, wheezes. ABSENT: accessory muscle use, chest wall tenderness, crackles, retraction, symmetrical Cardiovascular exam: PRESENT: RRR, +S1, +S2, tachycardia Pulses: PRESENT: normal radial pulses GI/Abdominal exam: PRESENT: diminished bowel sounds, soft Gentrourinary exam: PRESENT: indwelling catheter Extremities exam: ABSENT: clubbing, joint swelling Musculoskeletal exam: ABSENT: deformity, dislocation Neurological exam: ABSENT: alert, awake Skin exam: PRESENT: dry, warm Results Laboratory Results: 03/14/17 04:02 03/14/17 04:02 03/14/17 03/14/17 03/14/17 04:02 04:02 05:10 WBC 14.4 H RBC 3.56 L Hgb 11.4 L Hct 33.4 L MCV 94 MCH 32.1 MCHC 34.1 RDW 15.0 H Plt Count 172 Seg Neutrophils % 88.7 H Lymphocytes % 8.1 L Monocytes % 3.1 Eosinophils % 0.0 Basophils % 0.1 Absolute Neutrophils 12.7 H Absolute Lymphocytes 1.2 Absolute Monocytes 0.4 Absolute Eosinophils 0.0 Absolute Basophils 0.0 Carbonic Acid 0.87 L HCO3/H2CO3 Ratio 24:1 ABG pH 7.49 H ABG pCO2 28.8 L ABG pO2 91.2 ABG HCO3 21.3 ABG O2 Saturation 97.6 ABG Base Excess -1.3 FiO2 21 Sodium 139.2 Potassium 3.7 Chloride 109 H Carbon Dioxide 21 L Anion Gap 9 BUN 21 H Creatinine 0.68 Est GFR ( Amer) > 60 Est GFR (Non-Af Amer) > 60 Glucose 253 H Calcium 7.7 L Magnesium 2.3 03/14/17 14:30 WBC RBC Hgb Hct MCV MCH MCHC RDW Plt Count Seg Neutrophils % Lymphocytes % Monocytes % Eosinophils % Basophils % Absolute Neutrophils Absolute Lymphocytes Absolute Monocytes Absolute Eosinophils Absolute Basophils Carbonic Acid 0.99 L HCO3/H2CO3 Ratio 22:1 ABG pH 7.44 ABG pCO2 32.9 L ABG pO2 238.0 H ABG HCO3 21.8 ABG O2 Saturation 99.6 H ABG Base Excess -1.7 FiO2 35% Sodium Potassium Chloride Carbon Dioxide Anion Gap BUN Creatinine Est GFR ( Amer) Est GFR (Non-Af Amer) Glucose Calcium Magnesium 03/11/17 03/11/17 03/12/17 18:34 18:34 00:16 Creatine Kinase 80 65 CK-MB (CK-2) 4.50 Troponin I 0.055 03/12/17 03/12/17 03/12/17 00:16 01:06 06:30 Creatine Kinase 59 CK-MB (CK-2) Cancelled 4.65 H Troponin I Cancelled 0.677 03/12/17 06:30 Creatine Kinase CK-MB (CK-2) 4.59 H Troponin I 0.822 Impressions: Chest X-Ray 03/14/17 06:00 IMPRESSION: 1. No significant interval change. Assessment & Plan - Diagnosis (1) COPD exacerbation Is this a current diagnosis for this admission?: Yes Plan: Generic Name Dose Route Start Last Admin Trade Name Freq PRN Reason Stop Dose Admin Methylprednisolone Sodium Succinate 125 mg 03/10/17 14:00 03/10/17 13:40 Solu-Medrol Inj/Pf 125 Mg/2 Ml Sdv IV 04/09/17 13:59 125 mg Q8 MAICOL Albuterol/Ipratropium 1 puff 03/10/17 12:00 03/10/17 17:28 Combivent Respimat 4 Gm Mdi IH 04/09/17 11:59 Not Given Q6 MAICOL (2) Hyponatremia Is this a current diagnosis for this admission?: No (3) Influenza A Is this a current diagnosis for this admission?: Yes (4) Acute hypercapnic respiratory failure Is this a current diagnosis for this admission?: Yes Plan: increase min vol decreased SAO2 - Time Total Critical Time (Minutes): 40
--- NOTE | 2017-03-17 16:06 | PDOC PROGRESS REPORT ---
Subjective Progress Note for:: 03/13/17 Subjective:: awake Reason For Visit: COPD EXACERBATION,RESPIRATORY FAILURE,INFLUENZA Physical Exam Vital Signs: Temp Pulse Resp BP Pulse Ox 96.8 F L 42 L 22 H 114/64 100 03/13/17 07:59 03/13/17 07:59 03/13/17 07:59 03/13/17 07:59 03/13/17 07:59 Intake & Output 03/12/17 03/13/17 03/14/17 06:59 06:59 06:59 Intake Total 4049 3271 Output Total 3172 1495 75 Balance 877 1776 -75 Weight 71.5 kg 73.9 kg General appearance: PRESENT: no acute distress, disheveled, obese, well- developed Head exam: PRESENT: atraumatic, normocephalic Eye exam: PRESENT: conjunctiva pale, EOMI, PERRLA Mouth exam: PRESENT: dry mucosa, neck supple, tongue midline Neck exam: ABSENT: carotid bruit, JVD, lymphadenopathy, thyromegaly, tracheal deviation, tracheostomy Respiratory exam: PRESENT: clear to auscultation vangie, decreased breath sounds, prolonged expiratory phas, rhonchi, symmetrical, wheezes. ABSENT: accessory muscle use, chest wall tenderness, crackles Cardiovascular exam: PRESENT: RRR, +S1, +S2, systolic murmur Pulses: PRESENT: normal radial pulses GI/Abdominal exam: PRESENT: diminished bowel sounds, soft Gentrourinary exam: PRESENT: indwelling catheter Extremities exam: ABSENT: clubbing, joint swelling Musculoskeletal exam: ABSENT: ambulatory, deformity, dislocation Neurological exam: PRESENT: awake, oriented to person Skin exam: PRESENT: dry, warm Results Laboratory Results: 03/13/17 03:56 03/13/17 03:56 03/13/17 03/13/17 03/13/17 03:56 03:56 06:11 WBC 13.6 H RBC 3.55 L Hgb 11.4 L Hct 33.6 L MCV 95 MCH 32.0 MCHC 33.8 RDW 14.8 H Plt Count 198 Seg Neutrophils % 82.2 H Lymphocytes % 14.2 Monocytes % 3.5 Eosinophils % 0.0 Basophils % 0.1 Absolute Neutrophils 11.2 H Absolute Lymphocytes 1.9 Absolute Monocytes 0.5 Absolute Eosinophils 0.0 Absolute Basophils 0.0 Carbonic Acid 0.83 L HCO3/H2CO3 Ratio 24:1 ABG pH 7.48 H ABG pCO2 27.7 L ABG pO2 162.8 H ABG HCO3 20.2 ABG O2 Saturation 99.2 H ABG Base Excess -2.0 FiO2 40% Sodium 137.3 Potassium 4.0 Chloride 109 H Carbon Dioxide 19 L Anion Gap 9 BUN 23 H Creatinine 0.73 Est GFR ( Amer) > 60 Est GFR (Non-Af Amer) > 60 Glucose 215 H Calcium 7.6 L Magnesium 2.3 Total Bilirubin 0.2 AST 19 ALT 30 Alkaline Phosphatase 56 Total Protein 5.2 L Albumin 2.8 L 03/10/17 16:20 Tracheal Aspirate Gram Stain - Final 03/10/17 16:20 Tracheal Aspirate Sputum Culture - Final NORMAL GEORGETTE 03/11/17 03/11/17 03/12/17 18:34 18:34 00:16 Creatine Kinase 80 65 CK-MB (CK-2) 4.50 Troponin I 0.055 03/12/17 03/12/17 03/12/17 00:16 01:06 06:30 Creatine Kinase 59 CK-MB (CK-2) Cancelled 4.65 H Troponin I Cancelled 0.677 03/12/17 06:30 Creatine Kinase CK-MB (CK-2) 4.59 H Troponin I 0.822 Impressions: Chest X-Ray 03/13/17 06:00 IMPRESSION: 1. No significant interval change. Assessment & Plan - Diagnosis (1) COPD exacerbation Is this a current diagnosis for this admission?: Yes Plan: stable Generic Name Dose Route Start Last Admin Trade Name Freq PRN Reason Stop Dose Admin Methylprednisolone Sodium Succinate 125 mg 03/10/17 14:00 03/10/17 13:40 Solu-Medrol Inj/Pf 125 Mg/2 Ml Sdv IV 04/09/17 13:59 125 mg Q8 MAICOL Albuterol/Ipratropium 1 puff 03/10/17 12:00 03/10/17 17:28 Combivent Respimat 4 Gm Mdi IH 04/09/17 11:59 Not Given Q6 MAICOL (2) Hyponatremia Is this a current diagnosis for this admission?: Yes Plan: resolvrd (3) Influenza A Is this a current diagnosis for this admission?: Yes Plan: tamiflu (4) Acute hypercapnic respiratory failure Is this a current diagnosis for this admission?: Yes Plan: iimproving - Time Total Critical Time (Minutes): 40
--- NOTE | 2017-03-17 16:11 | PDOC PROGRESS REPORT ---
Subjective Progress Note for:: 03/14/17 Subjective:: extubated Reason For Visit: COPD EXACERBATION,RESPIRATORY FAILURE,INFLUENZA Physical Exam Vital Signs: Temp Pulse Resp BP Pulse Ox 97.2 F 55 L 15 126/62 H 100 03/14/17 04:49 03/14/17 01:42 03/14/17 06:37 03/14/17 06:37 03/14/17 06:37 Intake & Output 03/13/17 03/14/17 03/15/17 06:59 06:59 06:59 Intake Total 3271 2781 Output Total 1495 1285 60 Balance 1776 1496 -60 Weight 73.9 kg 75.3 kg General appearance: PRESENT: no acute distress, disheveled, obese Head exam: PRESENT: atraumatic, normocephalic Eye exam: PRESENT: conjunctiva pale, EOMI Mouth exam: PRESENT: dry mucosa, neck supple, tongue midline Neck exam: ABSENT: carotid bruit, JVD, lymphadenopathy, thyromegaly, tracheal deviation Respiratory exam: PRESENT: decreased breath sounds, prolonged expiratory phas, rhonchi, unlabored, wheezes Cardiovascular exam: PRESENT: RRR, +S1, +S2 Pulses: PRESENT: normal radial pulses GI/Abdominal exam: PRESENT: diminished bowel sounds, soft Extremities exam: PRESENT: clubbing. ABSENT: joint swelling Musculoskeletal exam: ABSENT: deformity, dislocation Neurological exam: PRESENT: awake Skin exam: PRESENT: dry, warm Results Laboratory Results: 03/14/17 04:02 03/14/17 04:02 03/14/17 03/14/17 03/14/17 04:02 04:02 05:10 WBC 14.4 H RBC 3.56 L Hgb 11.4 L Hct 33.4 L MCV 94 MCH 32.1 MCHC 34.1 RDW 15.0 H Plt Count 172 Seg Neutrophils % 88.7 H Lymphocytes % 8.1 L Monocytes % 3.1 Eosinophils % 0.0 Basophils % 0.1 Absolute Neutrophils 12.7 H Absolute Lymphocytes 1.2 Absolute Monocytes 0.4 Absolute Eosinophils 0.0 Absolute Basophils 0.0 Carbonic Acid 0.87 L HCO3/H2CO3 Ratio 24:1 ABG pH 7.49 H ABG pCO2 28.8 L ABG pO2 91.2 ABG HCO3 21.3 ABG O2 Saturation 97.6 ABG Base Excess -1.3 FiO2 21 Sodium 139.2 Potassium 3.7 Chloride 109 H Carbon Dioxide 21 L Anion Gap 9 BUN 21 H Creatinine 0.68 Est GFR ( Amer) > 60 Est GFR (Non-Af Amer) > 60 Glucose 253 H Calcium 7.7 L Magnesium 2.3 03/10/17 16:20 Tracheal Aspirate Gram Stain - Final 03/10/17 16:20 Tracheal Aspirate Sputum Culture - Final NORMAL GEORGETTE 03/11/17 03/11/17 03/12/17 18:34 18:34 00:16 Creatine Kinase 80 65 CK-MB (CK-2) 4.50 Troponin I 0.055 03/12/17 03/12/17 03/12/17 00:16 01:06 06:30 Creatine Kinase 59 CK-MB (CK-2) Cancelled 4.65 H Troponin I Cancelled 0.677 03/12/17 06:30 Creatine Kinase CK-MB (CK-2) 4.59 H Troponin I 0.822 Impressions: Chest X-Ray 03/14/17 06:00 IMPRESSION: 1. No significant interval change. Assessment & Plan - Diagnosis (1) COPD exacerbation Is this a current diagnosis for this admission?: Yes Plan: stable Generic Name Dose Route Start Last Admin Trade Name Freq PRN Reason Stop Dose Admin Methylprednisolone Sodium Succinate 125 mg 03/10/17 14:00 03/10/17 13:40 Solu-Medrol Inj/Pf 125 Mg/2 Ml Sdv IV 04/09/17 13:59 125 mg Q8 MAICOL Albuterol/Ipratropium 1 puff 03/10/17 12:00 03/10/17 17:28 Combivent Respimat 4 Gm Mdi IH 04/09/17 11:59 Not Given Q6 MAICOL (2) Hyponatremia Is this a current diagnosis for this admission?: Yes Plan: resolvrd (3) Influenza A Is this a current diagnosis for this admission?: Yes Plan: tamiflu (4) Acute hypercapnic respiratory failure Is this a current diagnosis for this admission?: Yes Plan: stable - Time Total Critical Time (Minutes): 40
--- NOTE | 2017-03-17 16:18 | PDOC PROGRESS REPORT ---
Subjective Progress Note for:: 03/15/17 Subjective:: better,thank you Reason For Visit: COPD EXACERBATION,RESPIRATORY FAILURE,INFLUENZA Physical Exam Vital Signs: Temp Pulse Resp BP Pulse Ox 97.0 F 56 L 16 157/78 H 96 03/15/17 10:00 03/15/17 10:00 03/15/17 11:50 03/15/17 11:50 03/15/17 11:50 Intake & Output 03/14/17 03/15/17 03/16/17 06:59 06:59 06:59 Intake Total 2781 2568 Output Total 1285 2180 300 Balance 1496 388 -300 Weight 75.3 kg 77.9 kg General appearance: PRESENT: no acute distress, cooperative, disheveled, obese Head exam: PRESENT: atraumatic, normocephalic Eye exam: PRESENT: conjunctiva pale, EOMI Mouth exam: PRESENT: dry mucosa, neck supple, tongue midline Neck exam: ABSENT: carotid bruit, JVD, lymphadenopathy, thyromegaly, tracheal deviation Respiratory exam: PRESENT: decreased breath sounds, prolonged expiratory phas, rhonchi, symmetrical, unlabored Cardiovascular exam: PRESENT: RRR, +S1, +S2, tachycardia Pulses: PRESENT: normal radial pulses GI/Abdominal exam: PRESENT: diminished bowel sounds, soft Gentrourinary exam: PRESENT: indwelling catheter Extremities exam: PRESENT: clubbing. ABSENT: joint swelling Musculoskeletal exam: ABSENT: deformity, dislocation Neurological exam: PRESENT: alert, awake Psychiatric exam: PRESENT: normal mood Skin exam: PRESENT: dry, warm Results Laboratory Results: 03/15/17 03:47 03/15/17 03:47 03/14/17 03/15/17 03/15/17 14:30 03:47 03:47 WBC 14.5 H RBC 3.44 L Hgb 11.0 L Hct 32.6 L MCV 95 MCH 31.9 MCHC 33.8 RDW 14.8 H Plt Count 168 Seg Neutrophils % 89.7 H Lymphocytes % 7.7 L Monocytes % 2.5 L Eosinophils % 0.0 Basophils % 0.1 Absolute Neutrophils 13.0 H Absolute Lymphocytes 1.1 Absolute Monocytes 0.4 Absolute Eosinophils 0.0 Absolute Basophils 0.0 Carbonic Acid 0.99 L HCO3/H2CO3 Ratio 22:1 ABG pH 7.44 ABG pCO2 32.9 L ABG pO2 238.0 H ABG HCO3 21.8 ABG O2 Saturation 99.6 H ABG Base Excess -1.7 FiO2 35% Sodium 138.8 Potassium 3.9 Chloride 107 Carbon Dioxide 24 Anion Gap 8 BUN 18 Creatinine 0.65 Est GFR ( Amer) > 60 Est GFR (Non-Af Amer) > 60 Glucose 254 H Calcium 7.9 L Magnesium 2.3 Total Bilirubin 0.5 AST 14 L ALT 34 Alkaline Phosphatase 54 Total Protein 5.2 L Albumin 2.8 L 03/11/17 03/11/17 03/12/17 18:34 18:34 00:16 Creatine Kinase 80 65 CK-MB (CK-2) 4.50 Troponin I 0.055 03/12/17 03/12/17 03/12/17 00:16 01:06 06:30 Creatine Kinase 59 CK-MB (CK-2) Cancelled 4.65 H Troponin I Cancelled 0.677 03/12/17 06:30 Creatine Kinase CK-MB (CK-2) 4.59 H Troponin I 0.822 Impressions: Chest X-Ray 03/15/17 06:00 IMPRESSION: 1. Interval removal of NG tube and endotracheal tube. Otherwise stable appearance of the chest. Assessment & Plan - Diagnosis (1) COPD exacerbation Is this a current diagnosis for this admission?: Yes Plan: nearing baseline (2) Hyponatremia Is this a current diagnosis for this admission?: No (3) Influenza A Is this a current diagnosis for this admission?: Yes Plan: tamiflu (4) Acute hypercapnic respiratory failure Is this a current diagnosis for this admission?: Yes Plan: stable - Time Total Critical Time (Minutes): 35
--- NOTE | 2017-03-17 16:23 | PDOC PROGRESS REPORT ---
Subjective Progress Note for:: 03/16/17 Subjective:: ok now was a little nausea Reason For Visit: COPD EXACERBATION,RESPIRATORY FAILURE,INFLUENZA Physical Exam Vital Signs: Temp Pulse Resp BP Pulse Ox 97.2 F 75 18 159/91 H 100 03/15/17 18:00 03/16/17 08:28 03/16/17 08:28 03/16/17 06:51 03/16/17 08:28 Intake & Output 03/15/17 03/16/17 03/17/17 06:59 06:59 06:59 Intake Total 2568 1171 Output Total 2180 2560 225 Balance 554 -8889 -225 Weight 77.9 kg General appearance: PRESENT: no acute distress, cooperative, disheveled, obese Head exam: PRESENT: atraumatic, normocephalic Eye exam: PRESENT: conjunctiva pale, EOMI, PERRLA Mouth exam: PRESENT: moist, neck supple, tongue midline. ABSENT: dry mucosa, laceration Neck exam: PRESENT: tracheal deviation, tracheostomy. ABSENT: carotid bruit, JVD, lymphadenopathy, thyromegaly Respiratory exam: PRESENT: decreased breath sounds, prolonged expiratory phas, rales, rhonchi, symmetrical, unlabored, wheezes Cardiovascular exam: PRESENT: RRR, +S1, +S2, tachycardia Pulses: PRESENT: normal radial pulses GI/Abdominal exam: PRESENT: diminished bowel sounds, soft Gentrourinary exam: PRESENT: indwelling catheter Extremities exam: ABSENT: clubbing, joint swelling Musculoskeletal exam: ABSENT: deformity, dislocation Neurological exam: PRESENT: alert, awake Psychiatric exam: PRESENT: normal mood Skin exam: PRESENT: dry, warm Results Laboratory Results: 03/16/17 04:02 03/16/17 04:02 03/16/17 03/16/17 04:02 04:02 WBC 15.5 H RBC 3.43 L Hgb 11.1 L Hct 32.3 L MCV 94 MCH 32.2 MCHC 34.3 RDW 14.7 H Plt Count 173 Seg Neutrophils % 92.4 H Lymphocytes % 5.6 L Monocytes % 2.0 L Eosinophils % 0.0 Basophils % 0.0 Absolute Neutrophils 14.3 H Absolute Lymphocytes 0.9 Absolute Monocytes 0.3 Absolute Eosinophils 0.0 Absolute Basophils 0.0 Sodium 136.5 L Potassium 3.5 L Chloride 104 Carbon Dioxide 23 Anion Gap 10 BUN 15 Creatinine 0.59 Est GFR ( Amer) > 60 Est GFR (Non-Af Amer) > 60 Glucose 258 H Calcium 7.9 L Total Bilirubin 0.5 AST 14 L ALT 37 Alkaline Phosphatase 56 Total Protein 5.4 L Albumin 3.0 L 03/11/17 03/11/17 03/12/17 18:34 18:34 00:16 Creatine Kinase 80 65 CK-MB (CK-2) 4.50 Troponin I 0.055 03/12/17 03/12/17 03/12/17 00:16 01:06 06:30 Creatine Kinase 59 CK-MB (CK-2) Cancelled 4.65 H Troponin I Cancelled 0.677 03/12/17 06:30 Creatine Kinase CK-MB (CK-2) 4.59 H Troponin I 0.822 Impressions: Chest X-Ray 03/16/17 06:00 IMPRESSION: 1. Stable appearance of the chest. Assessment & Plan - Diagnosis (1) COPD exacerbation Is this a current diagnosis for this admission?: Yes Plan: nearing baseline (2) Hyponatremia Is this a current diagnosis for this admission?: Yes (3) Influenza A Is this a current diagnosis for this admission?: Yes Plan: improving (4) Acute hypercapnic respiratory failure Is this a current diagnosis for this admission?: Yes Plan: stable - Time Total Critical Time (Minutes): 35
--- NOTE | 2017-03-17 16:25 | PDOC PROGRESS REPORT ---
Subjective Progress Note for:: 03/17/17 Subjective:: ok Reason For Visit: COPD EXACERBATION,RESPIRATORY FAILURE,INFLUENZA Physical Exam Vital Signs: Temp Pulse Resp BP Pulse Ox 97.5 F 83 17 177/90 H 95 03/16/17 12:00 03/17/17 02:30 03/17/17 07:00 03/17/17 01:51 03/17/17 01:51 Intake & Output 03/16/17 03/17/17 03/18/17 06:59 06:59 06:59 Intake Total 1171 2701 Output Total 2720 5485 1430 Balance -1549 -2784 -1430 Weight 74.8 kg General appearance: PRESENT: no acute distress, cooperative, disheveled, obese Head exam: PRESENT: atraumatic, normocephalic Eye exam: PRESENT: conjunctiva pale, EOMI, PERRLA Mouth exam: PRESENT: moist, neck supple, tongue midline Neck exam: ABSENT: carotid bruit, JVD, lymphadenopathy, thyromegaly, tracheal deviation, tracheostomy Respiratory exam: PRESENT: decreased breath sounds, prolonged expiratory phas, rhonchi, symmetrical, unlabored Cardiovascular exam: PRESENT: RRR, +S1, +S2 Pulses: PRESENT: normal radial pulses GI/Abdominal exam: PRESENT: diminished bowel sounds, soft Extremities exam: ABSENT: clubbing, joint swelling Musculoskeletal exam: ABSENT: deformity, dislocation Neurological exam: PRESENT: alert, awake Psychiatric exam: PRESENT: normal mood Skin exam: PRESENT: dry, warm Results Laboratory Results: 03/17/17 03:43 03/17/17 03:43 03/16/17 03/17/17 03/17/17 12:08 03:43 03:43 WBC 15.6 H RBC 3.84 L Hgb 12.2 L Hct 35.9 L MCV 94 MCH 31.8 MCHC 34.0 RDW 14.6 H Plt Count 197 Seg Neutrophils % 89.8 H Lymphocytes % 5.9 L Monocytes % 4.2 Eosinophils % 0.0 Basophils % 0.1 Absolute Neutrophils 14.0 H Absolute Lymphocytes 0.9 Absolute Monocytes 0.7 Absolute Eosinophils 0.0 Absolute Basophils 0.0 Carbonic Acid 1.05 HCO3/H2CO3 Ratio 23:1 ABG pH 7.47 H ABG pCO2 34.8 L ABG pO2 76.7 L ABG HCO3 24.8 ABG O2 Saturation 96.1 ABG Base Excess 1.4 FiO2 ROOM AIR Sodium 135.9 L Potassium 2.9 L* Chloride 99 Carbon Dioxide 28 Anion Gap 9 BUN 11 Creatinine 0.54 Est GFR ( Amer) > 60 Est GFR (Non-Af Amer) > 60 Glucose 284 H Calcium 8.4 03/11/17 03/11/17 03/12/17 18:34 18:34 00:16 Creatine Kinase 80 65 CK-MB (CK-2) 4.50 Troponin I 0.055 03/12/17 03/12/17 03/12/17 00:16 01:06 06:30 Creatine Kinase 59 CK-MB (CK-2) Cancelled 4.65 H Troponin I Cancelled 0.677 03/12/17 06:30 Creatine Kinase CK-MB (CK-2) 4.59 H Troponin I 0.822 Impressions: Chest X-Ray 03/16/17 06:00 IMPRESSION: 1. Stable appearance of the chest. Assessment & Plan - Diagnosis (1) COPD exacerbation Is this a current diagnosis for this admission?: Yes Plan: nearing baseline (2) Hyponatremia Is this a current diagnosis for this admission?: Yes (3) Influenza A Is this a current diagnosis for this admission?: Yes Plan: improving (4) Acute hypercapnic respiratory failure Is this a current diagnosis for this admission?: Yes Plan: stable - Time Total Critical Time (Minutes): 35
--- NOTE | 2017-03-17 17:03 | PDOC PROGRESS REPORT ---
Subjective Progress Note for:: 03/17/17 Subjective:: Patient continues to improve, he will be transferred to the floor Reason For Visit: COPD EXACERBATION,RESPIRATORY FAILURE,INFLUENZA Physical Exam Vital Signs: Temp Pulse Resp BP Pulse Ox 97.5 F 71 17 135/75 H 98 03/16/17 12:00 03/17/17 13:52 03/17/17 16:20 03/17/17 16:20 03/17/17 16:19 Intake & Output 03/16/17 03/17/17 03/18/17 06:59 06:59 06:59 Intake Total 1171 2701 Output Total 4507 4085 2880 Balance -1549 -2784 -2880 Weight 74.8 kg General appearance: PRESENT: no acute distress, well-developed, well-nourished Head exam: PRESENT: atraumatic, normocephalic Eye exam: PRESENT: conjunctiva pink, EOMI, PERRLA Ear exam: PRESENT: normal external ear exam Mouth exam: PRESENT: moist, tongue midline Neck exam: PRESENT: full ROM Respiratory exam: PRESENT: clear to auscultation vangie Cardiovascular exam: PRESENT: RRR, +S1, +S2 Pulses: PRESENT: normal dorsalis pedis pul, +2 pedal pulses bilateral Vascular exam: PRESENT: normal capillary refill GI/Abdominal exam: PRESENT: normal bowel sounds, soft Rectal exam: PRESENT: deferred Neurological exam: PRESENT: alert, awake, oriented to person, oriented to place , oriented to time, oriented to situation, CN II-XII grossly intact. ABSENT: motor sensory deficit Psychiatric exam: PRESENT: appropriate affect, normal mood Skin exam: PRESENT: dry, intact, warm. ABSENT: cyanosis, rash Results Laboratory Results: 03/17/17 03:43 03/17/17 13:15 03/17/17 03/17/17 03/17/17 03:43 03:43 03:43 WBC 15.6 H RBC 3.84 L Hgb 12.2 L Hct 35.9 L MCV 94 MCH 31.8 MCHC 34.0 RDW 14.6 H Plt Count 197 Seg Neutrophils % 89.8 H Lymphocytes % 5.9 L Monocytes % 4.2 Eosinophils % 0.0 Basophils % 0.1 Absolute Neutrophils 14.0 H Absolute Lymphocytes 0.9 Absolute Monocytes 0.7 Absolute Eosinophils 0.0 Absolute Basophils 0.0 Sodium 135.9 L Potassium 2.9 L* Chloride 99 Carbon Dioxide 28 Anion Gap 9 BUN 11 Creatinine 0.54 Est GFR ( Amer) > 60 Est GFR (Non-Af Amer) > 60 Glucose 284 H Calcium 8.4 Magnesium 1.9 Total Bilirubin AST ALT Alkaline Phosphatase Total Protein Albumin 03/17/17 13:15 WBC RBC Hgb Hct MCV MCH MCHC RDW Plt Count Seg Neutrophils % Lymphocytes % Monocytes % Eosinophils % Basophils % Absolute Neutrophils Absolute Lymphocytes Absolute Monocytes Absolute Eosinophils Absolute Basophils Sodium 137.1 Potassium 3.1 L Chloride 95 L Carbon Dioxide 34 H Anion Gap 8 BUN 10 Creatinine 0.56 Est GFR ( Amer) > 60 Est GFR (Non-Af Amer) > 60 Glucose 199 H Calcium 8.4 Magnesium Total Bilirubin 0.7 AST 18 ALT 37 Alkaline Phosphatase 71 Total Protein 6.1 L Albumin 3.6 03/11/17 03/11/17 03/12/17 18:34 18:34 00:16 Creatine Kinase 80 65 CK-MB (CK-2) 4.50 Troponin I 0.055 03/12/17 03/12/17 03/12/17 00:16 01:06 06:30 Creatine Kinase 59 CK-MB (CK-2) Cancelled 4.65 H Troponin I Cancelled 0.677 03/12/17 06:30 Creatine Kinase CK-MB (CK-2) 4.59 H Troponin I 0.822 Impressions: Chest X-Ray 03/16/17 06:00 IMPRESSION: 1. Stable appearance of the chest. Assessment & Plan - Diagnosis (1) Acute respiratory failure Qualifiers: Respiratory failure complication: hypoxia and hypercapnia Qualified Code(s) : J96.01 - Acute respiratory failure with hypoxia; J96.02 - Acute respiratory failure with hypercapnia; J96.02 - Acute respiratory failure with hypercapnia; J96.02 - Acute respiratory failure with hypercapnia Is this a current diagnosis for this admission?: Yes (2) COPD exacerbation Is this a current diagnosis for this admission?: Yes (3) Diabetes mellitus type 2 in nonobese Is this a current diagnosis for this admission?: Yes (4) VRE (vancomycin-resistant Enterococci) infection Is this a current diagnosis for this admission?: Yes (5) UTI (urinary tract infection) due to Enterococcus Is this a current diagnosis for this admission?: Yes - Plan Summary Plan Summary: Continue treatment
[2017-03-17] MEDS: ATORVASTATIN CALCIUM 40 MG TABLET PO SCH (23:32)
[2017-03-17] MEDS: CARVEDILOL 3.125 MG TABLET PO SCH (23:32)
[2017-03-18] MEDS: IPRATROPIUM/ALBUTEROL 0.5-2.5 MG/3 ML AMPUL NEB SCH ×4 (02:34→20:37)
[2017-03-18] MEDS: LANSOPRAZOLE 30 MG TAB.RAP.DR NG SCH (05:09)
[2017-03-18 06:25] LABS: ABSOLUTE LYMPHOCYTES (AUTO) 2.3 10^3/uL (0.5-4.7); ABSOLUTE MONOCYTES (AUTO) 0.7 10^3/uL (0.1-1.4); ABSOLUTE NEUT (AUTO) 10.5 10^3/uL (1.7-8.2); BASOPHILS % (AUTO) 0.1 % (0-2); EOSINOPHILS % (AUTO) 0.1 % (0-6); HEMATOCRIT 34.6 % (37.9-51.0); HEMOGLOBIN 11.8 g/dL (13.5-17.0); LYMPHOCYTES % (AUTO) 16.9 % (13-45); MEAN CORPUSCULAR HGB CONC 34.2 g/dL (32.0-36.0); MEAN CORPUSCULAR VOLUME 94 fl (80-97); MONOCYTES % (AUTO) 5.5 % (3-13); PLATELET COUNT 168 10^3/uL (150-450); RED CELL DISTRIBUTION WIDTH 14.9 % (11.5-14.0); SEGMENTED NEUTROPHILS % (AUTO) 77.4 % (42-78); TOTAL CELLS COUNTED % (AUTO) 100 %; WHITE BLOOD COUNT 13.6 10^3/uL (4.0-10.5)
[2017-03-18 06:43] LABS: ANION GAP 6 (5-19); BLOOD UREA NITROGEN 11 mg/dL (7-20); CARBON DIOXIDE 31 mmol/L (22-30); CHLORIDE 97 mmol/L (98-107); GLUCOSE 124 mg/dL (75-110); POTASSIUM 3.1 mmol/L (3.6-5.0); SODIUM 134.1 mmol/L (137-145)
[2017-03-18] MEDS: PREDNISONE 20 MG TABLET PO SCH (10:03)
[2017-03-18] MEDS: ENOXAPARIN SODIUM INJ 40 MG/0.4 ML DISP.SYRIN SUBCUT SCH (10:03)
[2017-03-18] MEDS: LINEZOLID 300 ML IV SCH ×2 (10:03→21:24)
[2017-03-18] MEDS: CARVEDILOL 3.125 MG TABLET PO SCH ×2 (10:04→21:24)
[2017-03-18] MEDS: LISINOPRIL 5 MG TABLET PO SCH (10:04)
[2017-03-18] MEDS: CLOPIDOGREL BISULFATE 75 MG TABLET PO SCH (10:04)
[2017-03-18] MEDS: SPIRONOLACTONE 25 MG TABLET PO SCH (10:04)
[2017-03-18] MEDS: INSULIN LISPRO 100 UNIT/ML 3 ML VIAL SUBCUT PRN (17:24)
--- NOTE | 2017-03-18 18:46 | PDOC PROGRESS REPORT ---
Subjective Progress Note for:: 03/18/17 Subjective:: Patient was placed on carvedilol and ramipril yesterday, this he seems to be tolerating well. Dosages would need to be gradually escalated. Patient noted to be doing well without any significant symptoms. Patient still in the unit as there are no floor beds to transfer him out. He has done extremely well, he looks comfortable without any chest pain. Telemetry strips shows normal sinus rhythm without any sustained tacky or bradycardia. On questioning patient denied any chest, neck discomfort. Medications reviewed. Reason For Visit: COPD EXACERBATION,RESPIRATORY FAILURE,INFLUENZA Physical Exam Vital Signs: Temp Pulse Resp BP Pulse Ox 98.1 F 77 16 95/59 L 93 03/18/17 14:56 03/18/17 14:56 03/18/17 14:56 03/18/17 14:56 03/18/17 14:56 Intake & Output 03/17/17 03/18/17 03/19/17 06:59 06:59 06:59 Intake Total 2701 1040 1064 Output Total 5475 5005 800 Balance -2784 -2955 264 Weight 70.8 kg Exam: GENERAL: well-nourished and in no acute distress. Alert and oriented x3 HEAD: Atraumatic, normocephalic. EYES: Pupils equal round and reactive to light, extraocular movements intact, sclera anicteric, conjunctiva are normal. ENT: TMs normal, nares patent, oropharynx clear without exudates. Moist mucous membranes. No oral ulcerations or bleeding gums noted NECK: supple without lymphadenopathy. Trachea is central. No cervical or axillary lymphadenopathy noted. Carotids are 2+, JVD WNL LUNGS: Respiration seems nonlabored, no significant accessory muscle action noted. Breath sounds clear to auscultation bilaterally and equal noted. No wheezes rales or rhonchi noted. No significant dullness noted on percussion. CHEST: Palpation of the chest wall shows no significant chest wall tenderness. No other significant abnormalities noted. 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 ABDOMEN: Soft, no significant tenderness appreciated, normoactive bowel sounds. No guarding, no rebound. No rigidity noted . No masses appreciated. EXTREMITIES: Pedal pulses are 1-2+, no calf tenderness noted. No clubbing or cyanosis.trace to 1+ pedal edema noted NEUROLOGICAL: Focused neurological exam showed no significant neurologic deficit. Normal speech, no focal weakness appreciated. PSYCH: Normal mood, normal affect. Judgment and insight within normal limits. SKIN: No significant ecchymosis, rash, ulcerations or signs of pruritus noted. MUSCULOSKELETAL EXAM: No significant joint swelling noted. Results Laboratory Results: 03/18/17 06:01 03/18/17 06:01 03/18/17 03/18/17 06:01 06:01 WBC 13.6 H RBC 3.70 L Hgb 11.8 L Hct 34.6 L MCV 94 MCH 32.0 MCHC 34.2 RDW 14.9 H Plt Count 168 Seg Neutrophils % 77.4 Lymphocytes % 16.9 Monocytes % 5.5 Eosinophils % 0.1 Basophils % 0.1 Absolute Neutrophils 10.5 H Absolute Lymphocytes 2.3 Absolute Monocytes 0.7 Absolute Eosinophils 0.0 Absolute Basophils 0.0 Sodium 134.1 L Potassium 3.1 L Chloride 97 L Carbon Dioxide 31 H Anion Gap 6 BUN 11 Creatinine 0.56 Est GFR ( Amer) > 60 Est GFR (Non-Af Amer) > 60 Glucose 124 H Calcium 8.0 L 03/11/17 03/11/17 03/12/17 18:34 18:34 00:16 Creatine Kinase 80 65 CK-MB (CK-2) 4.50 Troponin I 0.055 03/12/17 03/12/17 03/12/17 00:16 01:06 06:30 Creatine Kinase 59 CK-MB (CK-2) Cancelled 4.65 H Troponin I Cancelled 0.677 03/12/17 06:30 Creatine Kinase CK-MB (CK-2) 4.59 H Troponin I 0.822 Impressions: Chest X-Ray 03/16/17 06:00 IMPRESSION: 1. Stable appearance of the chest. Assessment & Plan - Diagnosis (1) Acute respiratory failure Qualifiers: Respiratory failure complication: hypoxia and hypercapnia Qualified Code(s) : J96.01 - Acute respiratory failure with hypoxia; J96.02 - Acute respiratory failure with hypercapnia; J96.02 - Acute respiratory failure with hypercapnia; J96.02 - Acute respiratory failure with hypercapnia Is this a current diagnosis for this admission?: Yes (2) COPD exacerbation Is this a current diagnosis for this admission?: Yes (3) Diabetes mellitus type 2 in nonobese Is this a current diagnosis for this admission?: Yes (4) Cardiomyopathy Qualifiers: Cardiomyopathy type: unspecified Qualified Code(s): I42.9 - Cardiomyopathy , unspecified Is this a current diagnosis for this admission?: Yes (6) Coronary artery disease Qualifiers: Coronary Disease-Associated Artery/Lesion type: [place] artery [place] vs. transplanted heart: [place] heart Associated angina: angina presence unspecified Qualified Code(s): I25.10 - Atherosclerotic heart disease of [place] coronary artery without angina pectoris Is this a current diagnosis for this admission?: Yes (7) Bradycardia Is this a current diagnosis for this admission?: Yes (8) Troponin level elevated Is this a current diagnosis for this admission?: Yes - Notes Notes: Restarted patient on carvedilol, lisinopril at low-dose yesterday, this he seems to be tolerating well. Did not increase dose as today as patient's blood pressure somewhat on the low side.. Also had added spironolactone, Plavix and Lipitor for optimization of patient's current cardiac status. Patient looking much improved. Bradycardia: Resolved. No significant bradycardia noted on telemetry monitoring review. Will discontinue the scopolamine patch. Reinstitute low- dose beta-leslie for his cardiomyopathy and CAD. Acute respiratory failure: Currently resolved. Patient maintaining good ventilation. Stable. COPD exacerbation: Patient being treated with steroids and bronchodilator therapy. Also continue antibiotic therapy. Management plans being deferred to shank faker and magazine keeper. Diabetes: Recommend good control but avoid any hypo-or hyperglycemia. Influenza A: Agree with current treatment plans. Cardiomyopathy: Patient has a history of cardiomyopathy with depressed LVEF. Currently seems compensated. Gradually optimize underlying management. We will add carvedilol and low-dose LIANE inhibitor. Coronary artery disease: Currently stable without any evidence to suggest ongoing ischemia. Continue/reinstitute with antiplatelet and statin therapy. Troponin I elevation: [place] to be related to supply demand mismatch and due to metabolic reasons. Previous cardiac evaluations were reviewed. Recommend optimization of medical management. Patient can follow-up with me as an outpatient if he wishes. Further escalation can be performed as an outpatient. Please reconsult if needed. - Time Time with patient: Greater than 35 minutes - CODE STATUS was discussed, patient remains full code. Surrogate decision-maker unchanged. Multiple medical problems were addressed. More than 50% of the time spent coordinating care, discussing management plans with involved caregivers. Management plans discussed with involved personnels. Medical decision making was of moderate to high complexity, patient's has multiple comorbidities. Medications reviewed and adjusted accordingly: Yes
[2017-03-18] MEDS ORDERED: BISACODYL 5 MG TABEC PO ONE (19:30)
--- NOTE | 2017-03-18 21:19 | PDOC PROGRESS REPORT ---
Subjective Progress Note for:: 03/18/17 Subjective:: Patient was seen by the bedside, he has no new complaints Reason For Visit: COPD EXACERBATION,RESPIRATORY FAILURE,INFLUENZA Physical Exam Vital Signs: Temp Pulse Resp BP Pulse Ox 98.1 F 77 16 95/59 L 93 03/18/17 14:56 03/18/17 14:56 03/18/17 14:56 03/18/17 14:56 03/18/17 14:56 Intake & Output 03/17/17 03/18/17 03/19/17 06:59 06:59 06:59 Intake Total 2701 1040 1064 Output Total 5427 5004 800 Balance -0932 -7105 264 Weight 70.8 kg General appearance: PRESENT: no acute distress Eye exam: PRESENT: PERRLA Respiratory exam: PRESENT: clear to auscultation vangie Cardiovascular exam: PRESENT: +S1, +S2 GI/Abdominal exam: PRESENT: soft Neurological exam: PRESENT: alert, CN II-XII grossly intact Results Laboratory Results: 03/18/17 06:01 03/18/17 06:01 03/18/17 03/18/17 06:01 06:01 WBC 13.6 H RBC 3.70 L Hgb 11.8 L Hct 34.6 L MCV 94 MCH 32.0 MCHC 34.2 RDW 14.9 H Plt Count 168 Seg Neutrophils % 77.4 Lymphocytes % 16.9 Monocytes % 5.5 Eosinophils % 0.1 Basophils % 0.1 Absolute Neutrophils 10.5 H Absolute Lymphocytes 2.3 Absolute Monocytes 0.7 Absolute Eosinophils 0.0 Absolute Basophils 0.0 Sodium 134.1 L Potassium 3.1 L Chloride 97 L Carbon Dioxide 31 H Anion Gap 6 BUN 11 Creatinine 0.56 Est GFR ( Amer) > 60 Est GFR (Non-Af Amer) > 60 Glucose 124 H Calcium 8.0 L 03/11/17 03/11/17 03/12/17 18:34 18:34 00:16 Creatine Kinase 80 65 CK-MB (CK-2) 4.50 Troponin I 0.055 03/12/17 03/12/17 03/12/17 00:16 01:06 06:30 Creatine Kinase 59 CK-MB (CK-2) Cancelled 4.65 H Troponin I Cancelled 0.677 03/12/17 06:30 Creatine Kinase CK-MB (CK-2) 4.59 H Troponin I 0.822 Impressions: Chest X-Ray 03/16/17 06:00 IMPRESSION: 1. Stable appearance of the chest. Assessment & Plan - Diagnosis (1) Acute respiratory failure Qualifiers: Respiratory failure complication: hypoxia and hypercapnia Qualified Code(s) : J96.01 - Acute respiratory failure with hypoxia; J96.02 - Acute respiratory failure with hypercapnia; J96.02 - Acute respiratory failure with hypercapnia; J96.02 - Acute respiratory failure with hypercapnia Is this a current diagnosis for this admission?: Yes (2) COPD exacerbation Is this a current diagnosis for this admission?: Yes (3) Diabetes mellitus type 2 in nonobese Is this a current diagnosis for this admission?: Yes (4) VRE (vancomycin-resistant Enterococci) infection Is this a current diagnosis for this admission?: Yes (5) UTI (urinary tract infection) due to Enterococcus Is this a current diagnosis for this admission?: Yes
[2017-03-18] MEDS: ATORVASTATIN CALCIUM 40 MG TABLET PO SCH (21:24)
[2017-03-19] MEDS: IPRATROPIUM/ALBUTEROL 0.5-2.5 MG/3 ML AMPUL NEB SCH ×4 (02:07→20:32)
[2017-03-19] MEDS: LANSOPRAZOLE 30 MG TAB.RAP.DR PO SCH (06:30)
[2017-03-19] MEDS: CLOPIDOGREL BISULFATE 75 MG TABLET PO SCH (09:54)
[2017-03-19] MEDS: LISINOPRIL 5 MG TABLET PO SCH (09:54)
[2017-03-19] MEDS: ENOXAPARIN SODIUM INJ 40 MG/0.4 ML DISP.SYRIN SUBCUT SCH (09:54)
[2017-03-19] MEDS: PREDNISONE 20 MG TABLET PO SCH (09:54)
[2017-03-19] MEDS: LINEZOLID 600 MG TABLET PO SCH (09:54)
[2017-03-19] MEDS: SPIRONOLACTONE 25 MG TABLET PO SCH (09:54)
[2017-03-19] MEDS: CARVEDILOL 3.125 MG TABLET PO SCH (09:54)
[2017-03-19] MEDS: INSULIN LISPRO 100 UNIT/ML 3 ML VIAL SUBCUT PRN (16:40)
--- NOTE | 2017-03-19 22:25 | PDOC PROGRESS REPORT ---
Subjective Progress Note for:: 03/19/17 Subjective:: Seen by the bedside, he has positive flu, started on Tamiflu Reason For Visit: COPD EXACERBATION,RESPIRATORY FAILURE,INFLUENZA Physical Exam Vital Signs: Temp Pulse Resp BP Pulse Ox 97.5 F 75 16 141/87 H 98 03/19/17 19:33 03/19/17 20:25 03/19/17 20:25 03/19/17 19:33 03/19/17 20:25 Intake & Output 03/18/17 03/19/17 03/20/17 06:59 06:59 06:59 Intake Total 1040 2364 222 Output Total 5005 2050 900 Balance -3965 314 -678 Weight 70.8 kg General appearance: PRESENT: no acute distress Respiratory exam: PRESENT: clear to auscultation vangie Cardiovascular exam: PRESENT: +S1 GI/Abdominal exam: PRESENT: soft Neurological exam: PRESENT: alert Results Laboratory Results: 03/18/17 06:01 03/18/17 06:01 03/11/17 03/11/17 03/12/17 18:34 18:34 00:16 Creatine Kinase 80 65 CK-MB (CK-2) 4.50 Troponin I 0.055 03/12/17 03/12/17 03/12/17 00:16 01:06 06:30 Creatine Kinase 59 CK-MB (CK-2) Cancelled 4.65 H Troponin I Cancelled 0.677 03/12/17 06:30 Creatine Kinase CK-MB (CK-2) 4.59 H Troponin I 0.822 Impressions: Chest X-Ray 03/16/17 06:00 IMPRESSION: 1. Stable appearance of the chest. Assessment & Plan - Diagnosis (1) Acute respiratory failure Qualifiers: Respiratory failure complication: hypoxia and hypercapnia Qualified Code(s) : J96.01 - Acute respiratory failure with hypoxia; J96.02 - Acute respiratory failure with hypercapnia; J96.02 - Acute respiratory failure with hypercapnia; J96.02 - Acute respiratory failure with hypercapnia Is this a current diagnosis for this admission?: Yes (2) COPD exacerbation Is this a current diagnosis for this admission?: Yes (3) Diabetes mellitus type 2 in nonobese Is this a current diagnosis for this admission?: Yes (4) VRE (vancomycin-resistant Enterococci) infection Is this a current diagnosis for this admission?: Yes (5) UTI (urinary tract infection) due to Enterococcus Is this a current diagnosis for this admission?: Yes (6) Influenza A Is this a current diagnosis for this admission?: Yes
[2017-03-20] MEDS: CARVEDILOL 3.125 MG TABLET PO SCH ×3 (00:29→22:19)
[2017-03-20] MEDS: ATORVASTATIN CALCIUM 40 MG TABLET PO SCH ×2 (00:30→22:20)
[2017-03-20] MEDS: INSULIN LISPRO 100 UNIT/ML 3 ML VIAL SUBCUT PRN ×3 (00:31→22:20)
[2017-03-20] MEDS: LINEZOLID 600 MG TABLET PO SCH ×3 (00:31→22:20)
[2017-03-20] MEDS: IPRATROPIUM/ALBUTEROL 0.5-2.5 MG/3 ML AMPUL NEB SCH ×4 (02:15→19:51)
[2017-03-20] MEDS: LANSOPRAZOLE 30 MG TAB.RAP.DR PO SCH (05:28)
[2017-03-20] MEDS: SPIRONOLACTONE 25 MG TABLET PO SCH (10:58)
[2017-03-20] MEDS: ENOXAPARIN SODIUM INJ 40 MG/0.4 ML DISP.SYRIN SUBCUT SCH (10:58)
[2017-03-20] MEDS: CLOPIDOGREL BISULFATE 75 MG TABLET PO SCH (10:58)
[2017-03-20] MEDS: PREDNISONE 20 MG TABLET PO SCH (10:58)
[2017-03-20] MEDS: LISINOPRIL 5 MG TABLET PO SCH (10:58)
[2017-03-20] MEDS ORDERED: OSELTAMIVIR PHOSPHATE 75 MG CAPSULE PO ONE (15:00)
[2017-03-20] MEDS ORDERED: ACETAMINOPHEN 325 MG TABLET PO PRN (17:11)
--- NOTE | 2017-03-20 17:44 | PDOC PROGRESS REPORT ---
Subjective Progress Note for:: 03/20/17 Subjective:: Seen by the bedside, he has positive flu, started on Tamiflu Reason For Visit: COPD EXACERBATION,RESPIRATORY FAILURE,INFLUENZA Physical Exam Vital Signs: Temp Pulse Resp BP Pulse Ox 97.5 F 89 18 120/55 L 95 03/20/17 15:27 03/20/17 15:27 03/20/17 15:27 03/20/17 15:27 03/20/17 15:27 Intake & Output 03/19/17 03/20/17 03/21/17 06:59 06:59 06:59 Intake Total 2364 666 240 Output Total 2050 1550 325 Balance 314 -884 -85 General appearance: PRESENT: no acute distress Eye exam: PRESENT: PERRLA Respiratory exam: PRESENT: clear to auscultation vangie Cardiovascular exam: PRESENT: +S1, +S2 GI/Abdominal exam: PRESENT: soft Neurological exam: PRESENT: alert Results Laboratory Results: 03/18/17 06:01 03/18/17 06:01 03/11/17 03/11/17 03/12/17 18:34 18:34 00:16 Creatine Kinase 80 65 CK-MB (CK-2) 4.50 Troponin I 0.055 03/12/17 03/12/17 03/12/17 00:16 01:06 06:30 Creatine Kinase 59 CK-MB (CK-2) Cancelled 4.65 H Troponin I Cancelled 0.677 03/12/17 06:30 Creatine Kinase CK-MB (CK-2) 4.59 H Troponin I 0.822 Impressions: Chest X-Ray 03/16/17 06:00 IMPRESSION: 1. Stable appearance of the chest. Assessment & Plan - Diagnosis (1) Acute respiratory failure Qualifiers: Respiratory failure complication: hypoxia and hypercapnia Qualified Code(s) : J96.01 - Acute respiratory failure with hypoxia; J96.02 - Acute respiratory failure with hypercapnia; J96.02 - Acute respiratory failure with hypercapnia; J96.02 - Acute respiratory failure with hypercapnia Is this a current diagnosis for this admission?: Yes (2) COPD exacerbation Is this a current diagnosis for this admission?: Yes (3) Diabetes mellitus type 2 in nonobese Is this a current diagnosis for this admission?: Yes (4) VRE (vancomycin-resistant Enterococci) infection Is this a current diagnosis for this admission?: Yes (5) UTI (urinary tract infection) due to Enterococcus Is this a current diagnosis for this admission?: Yes (6) Influenza A Is this a current diagnosis for this admission?: Yes
[2017-03-20] MEDS: OSELTAMIVIR PHOSPHATE 75 MG CAPSULE PO SCH (22:20)
[2017-03-21] MEDS ORDERED: SENNOSIDES/DOCUSATE 8.6-50 MG 1 EACH TABLET PO PRN (02:03)
[2017-03-21] MEDS: IPRATROPIUM/ALBUTEROL 0.5-2.5 MG/3 ML AMPUL NEB SCH ×4 (02:14→19:40)
[2017-03-21] MEDS: LANSOPRAZOLE 30 MG TAB.RAP.DR PO SCH (06:43)
[2017-03-21 08:51] LABS: BASOPHILS % (AUTO) 0.2 % (0-2); EOSINOPHILS % (AUTO) 0.1 % (0-6); HEMATOCRIT 37.2 % (37.9-51.0); HEMOGLOBIN 12.6 g/dL (13.5-17.0); LYMPHOCYTES % (AUTO) 22.3 % (13-45); MEAN CORPUSCULAR HEMOGLOBIN 31.5 pg (27.0-33.4); MEAN CORPUSCULAR HGB CONC 33.7 g/dL (32.0-36.0); MEAN CORPUSCULAR VOLUME 93 fl (80-97); MONOCYTES % (AUTO) 6.6 % (3-13); PLATELET COUNT 212 10^3/uL (150-450); RED BLOOD COUNT 3.99 10^6/uL (4.35-5.55); RED CELL DISTRIBUTION WIDTH 14.7 % (11.5-14.0); SEGMENTED NEUTROPHILS % (AUTO) 70.8 % (42-78); WHITE BLOOD COUNT 19.6 10^3/uL (4.0-10.5)
[2017-03-21 08:52] LABS: ABSOLUTE LYMPHOCYTES (AUTO) 4.4 10^3/uL (0.5-4.7); ABSOLUTE MONOCYTES (AUTO) 1.3 10^3/uL (0.1-1.4); ABSOLUTE NEUT (AUTO) 13.8 10^3/uL (1.7-8.2); TOTAL CELLS COUNTED % (AUTO) 100 %
[2017-03-21 09:11] LABS: ALANINE AMINOTRANSFERASE 40 U/L (21-72); ALKALINE PHOSPHATASE 72 U/L (38-126); ANION GAP 6 (5-19); ASPARTATE AMINO TRANSFERASE 18 U/L (17-59); BILIRUBIN,DIRECT 0.1 mg/dL (0.0-0.4); BILIRUBIN,TOTAL 0.5 mg/dL (0.2-1.3); BLOOD UREA NITROGEN 13 mg/dL (7-20); CALCIUM 8.6 mg/dL (8.4-10.2); CARBON DIOXIDE 30 mmol/L (22-30); CHLORIDE 98 mmol/L (98-107); GLUCOSE 118 mg/dL (75-110); POTASSIUM 3.5 mmol/L (3.6-5.0); SODIUM 133.8 mmol/L (137-145); TOTAL PROTEIN 5.5 g/dL (6.3-8.2)
[2017-03-21] MEDS ORDERED: PREDNISONE 20 MG TABLET PO SCH (10:00)
[2017-03-21] MEDS: ENOXAPARIN SODIUM INJ 40 MG/0.4 ML DISP.SYRIN SUBCUT SCH (11:40)
[2017-03-21] MEDS: SPIRONOLACTONE 25 MG TABLET PO SCH (11:40)
[2017-03-21] MEDS: CLOPIDOGREL BISULFATE 75 MG TABLET PO SCH (11:41)
[2017-03-21] MEDS: LINEZOLID 600 MG TABLET PO SCH (11:41)
[2017-03-21] MEDS: CARVEDILOL 3.125 MG TABLET PO SCH (11:42)
[2017-03-21] MEDS: LISINOPRIL 5 MG TABLET PO SCH (11:42)
[2017-03-21] MEDS: OSELTAMIVIR PHOSPHATE 75 MG CAPSULE PO SCH (11:50)
[2017-03-21 16:39] VITALS: BP 127/63
--- NOTE | 2017-03-21 18:24 | PDOC TRANSFER SUMMARY ---
General - Admit/Disc Date/PCP Admission Date/Primary Care Provider: 03/10/17 06:27 CONSTANCE NAIDU MD Discharge Date: 03/21/17 - Discharge Diagnosis (1) Acute respiratory failure Is this a current diagnosis for this admission?: Yes (2) COPD exacerbation Is this a current diagnosis for this admission?: Yes (3) Diabetes mellitus type 2 in nonobese Is this a current diagnosis for this admission?: Yes (4) VRE (vancomycin-resistant Enterococci) infection Is this a current diagnosis for this admission?: Yes (5) UTI (urinary tract infection) due to Enterococcus Is this a current diagnosis for this admission?: Yes (6) Influenza A Is this a current diagnosis for this admission?: Yes - Additional Information Resuscitation Status: Full Code Prescriptions: Oseltamivir Phosphate [Tamiflu 75 mg Capsule] 75 mg PO Q12 #6 capsule Spironolactone [Aldactone 25 mg Tablet] 25 mg PO DAILY #30 tablet Home Medications: Acetaminophen [Tylenol] 650 mg PO Q4HP PRN 03/10/17 Aspirin [Aspirin EC] 81 mg PO DAILY 03/10/17 Atorvastatin Calcium [Lipitor 40 mg Tablet] 40 mg PO QHS 03/10/17 Atorvastatin Calcium [Lipitor 80 mg Tablet] 80 mg PO QHS 03/10/17 Carvedilol [Coreg 3.125 mg Tablet] 3.125 mg PO Q12 03/10/17 Finasteride [Proscar 5 mg Tablet] 5 mg PO DAILY 03/10/17 Gabapentin [Neurontin 300 mg Capsule] 300 mg PO Q8 03/10/17 Insulin Glargine,Hum.rec.anlog [Lantus] 16 unit SQ NOON 03/10/17 Lisinopril [Prinivil 2.5 mg Tablet] 2.5 mg PO DAILY 03/10/17 Metformin HCl [Glucophage 500 mg Tablet] 500 mg PO BID 03/10/17 Omeprazole 20 mg PO DAILY 03/10/17 Oxybutynin Chloride [Ditropan 5 mg Tablet] 5 mg PO DAILY 03/10/17 Sennosides/Docusate 8.6-50 mg [Senna Plus Tablet] 1 tab PO HSP PRN 03/10/17 Sennosides/Docusate 8.6-50 mg [Senna Plus Tablet] 1 tab PO QHS 03/10/17 Tamsulosin HCl [Flomax 0.4 mg Cap.sr] 0.4 mg PO DAILY 03/10/17 Oseltamivir Phosphate [Tamiflu 75 mg Capsule] 75 mg PO Q12 #6 capsule 03/21/17 Spironolactone [Aldactone 25 mg Tablet] 25 mg PO DAILY #30 tablet 03/21/17 History of Present Illness Admission Date/PCP: 03/10/17 06:27 CONSTANCE NAIDU MD History of Present Illness: Patient is a 61-year-old male with COPD, type 2 diabetes mellitus who was admitted on 03/10/2017 when he presented with acute respiratory distress due to COPD exacerbation Hospital Course Hospital Course: Patient was admitted for the management of acute respiratory failure due to COPD exacerbation, he was intubated on mechanical ventilation managed in intensive care unit. He was treated with IV antibiotic, IV Solu-Medrol during the course of ICU care he extubated himself and was supported with noninvasive positive pressure ventilation, he was ultimately reintubated because they could not maintain adequate oxygenation on BiPAP. Hospital course was complicated with VRE UTI, this was treated with Zyvox he also had influenza type a treated with Tamiflu. Patient is resident of the halfway at [facility], he was seen by pulmonary, Dr. Mckinney, pulmonary consulted cardiology because of bradycardia., He had sinus bradycardia thought to be secondary to overstimulation of vagus nerve he was treated temporarily with scopolamine. Patient was ultimately extubated and transferred to IMCU floor, Physical Exam Vital Signs: Temp Pulse Resp BP Pulse Ox 98.0 F 72 16 127/63 H 95 03/21/17 15:25 03/21/17 15:25 03/21/17 15:25 03/21/17 15:25 03/21/17 16:43 Intake & Output 03/20/17 03/21/17 03/22/17 06:59 06:59 06:59 Intake Total 666 1132 237 Output Total 1550 1725 500 Balance -884 -593 -263 Weight 68.3 kg General appearance: PRESENT: no acute distress Head exam: PRESENT: atraumatic, normocephalic Respiratory exam: PRESENT: clear to auscultation vangie Cardiovascular exam: PRESENT: RRR, +S1, +S2 Pulses: PRESENT: normal dorsalis pedis pul Vascular exam: PRESENT: normal capillary refill GI/Abdominal exam: PRESENT: normal bowel sounds, soft Rectal exam: PRESENT: deferred Extremities exam: PRESENT: full ROM Neurological exam: PRESENT: alert Psychiatric exam: PRESENT: appropriate affect, normal mood Skin exam: PRESENT: dry, intact, warm Results Laboratory Results: 03/21/17 08:31 03/21/17 08:31 03/21/17 03/21/17 08:31 08:31 WBC 19.6 H RBC 3.99 L Hgb 12.6 L Hct 37.2 L MCV 93 MCH 31.5 MCHC 33.7 RDW 14.7 H Plt Count 212 Seg Neutrophils % 70.8 Lymphocytes % 22.3 Monocytes % 6.6 Eosinophils % 0.1 Basophils % 0.2 Absolute Neutrophils 13.8 H Absolute Lymphocytes 4.4 Absolute Monocytes 1.3 Absolute Eosinophils 0.0 Absolute Basophils 0.0 Sodium 133.8 L Potassium 3.5 L Chloride 98 Carbon Dioxide 30 Anion Gap 6 BUN 13 Creatinine 0.59 Est GFR ( Amer) > 60 Est GFR (Non-Af Amer) > 60 Glucose 118 H Calcium 8.6 Total Bilirubin 0.5 AST 18 ALT 40 Alkaline Phosphatase 72 Total Protein 5.5 L Albumin 3.0 L 03/11/17 03/11/17 03/12/17 18:34 18:34 00:16 Creatine Kinase 80 65 CK-MB (CK-2) 4.50 Troponin I 0.055 03/12/17 03/12/17 03/12/17 00:16 01:06 06:30 Creatine Kinase 59 CK-MB (CK-2) Cancelled 4.65 H Troponin I Cancelled 0.677 03/12/17 06:30 Creatine Kinase CK-MB (CK-2) 4.59 H Troponin I 0.822 Impressions: Chest X-Ray 03/16/17 06:00 IMPRESSION: 1. Stable appearance of the chest.
== END 2017-03-21 23:12 | DRG 208 ==
LOC: ER 04:44 → EH 06:27 → ICU 10:13 → 3S 03-17 22:04
PROVIDERS: ADMIT Internal Medicine; ATTEND Internal Medicine
PROC: 5A1945Z Respiratory Ventilation, 24-96 Consecutive Hours (ICD-10-PCS; principal; 2017-03-10)
PROC: 5A09357 Assistance with Respiratory Ventilation, Less than 24 Consecutive Hours, Continuous Positive Airway Pressure (ICD-10-PCS; 2017-03-10)
PROC: 0BH17EZ Insertion of Endotracheal Airway into Trachea, Via Natural or Artificial Opening (ICD-10-PCS; 2017-03-10)
PROC: 3E0234Z Introduction of Serum, Toxoid and Vaccine into Muscle, Percutaneous Approach (ICD-10-PCS; 2017-03-13)
DX: J96.01 Acute respiratory failure with hypoxia (principal); J44.1 Chronic obstructive pulmonary disease with (acute) exacerbation; N39.0 Urinary tract infection, site not specified; I42.9 Cardiomyopathy, unspecified; E87.1 Hypo-osmolality and hyponatremia; J96.02 Acute respiratory failure with hypercapnia; E11.9 Type 2 diabetes mellitus without complications; B95.2 Enterococcus as the cause of diseases classified elsewhere; J09.X2 Influenza due to identified novel influenza A virus with other respiratory manifestations; R00.1 Bradycardia, unspecified; Z16.21 Resistance to vancomycin; K21.9 Gastro-esophageal reflux disease without esophagitis; F32.9 Major depressive disorder, single episode, unspecified; I50.9 Heart failure, unspecified; I25.10 Atherosclerotic heart disease of native coronary artery without angina pectoris; F17.210 Nicotine dependence, cigarettes, uncomplicated; I11.0 Hypertensive heart disease with heart failure; R00.0 Tachycardia, unspecified; R74.8 Abnormal levels of other serum enzymes; I25.2 Old myocardial infarction; Z78.1 Physical restraint status; Z79.82 Long term (current) use of aspirin; Z79.4 Long term (current) use of insulin; Z79.899 Other long term (current) drug therapy; Z99.81 Dependence on supplemental oxygen; Z91.018 Allergy to other foods
CPT/HCPCS: 31500; 36415; 51701; 71045; 80048; 80053; 80162; 80202; 81001; 82550; 82553; 82803; 82962; 83605; 83735; 83880; 84100; 84478; 84484; 85025; 85610; 85730; 87040; 87070; 87086; 87088; 87186; 87205; 87804; 93005; 93010; 94002; 94003; 94640; 94660; 94799; 96365; 96367; 96375; 99291; J1100; J1650; J1815; J1940; J2020; J2250; J2543; J2704; J2930; J3370; J3475; J3490; J7030; J7060; J7512; J7620

== ENCOUNTER 2017-04-06 09:49 | Inpatient (IN) | payer OTHER, MEDICARE, MEDICAID ==
[2017-04-06] MEDS ORDERED: NORMAL SALINE 1000 ML 1,000 ML IV ONE ×2 (10:04→10:05)
[2017-04-06] MEDS ORDERED: IPRATROPIUM/ALBUTEROL 0.5-2.5 MG/3 ML AMPUL NEB ONE (10:05)
[2017-04-06] MEDS ORDERED: TERBUTALINE SULFATE INJ/PF 1 MG/1 ML SDV SUBCUT ONE (10:06)
--- NOTE | 2017-04-06 10:32 | RADIOLOGY REPORT (SQ) ---
EXAM DESCRIPTION: CHEST SINGLE VIEW COMPLETED DATE/TIME: 04/06/2017 10:18 am REASON FOR STUDY: sob COMPARISON: 03/15/2017. 03/16/2017. EXAM PARAMETERS: NUMBER OF VIEWS: One view. TECHNIQUE: Single frontal radiographic view of the chest acquired. RADIATION DOSE: NA LIMITATIONS: None. FINDINGS: LUNGS AND PLEURA: Considering patient rotation, no acute infiltrates or effusions. MEDIASTINUM AND HILAR STRUCTURES: No masses. Contour normal. HEART AND VASCULAR STRUCTURES: The heart is normal with normal pulmonary vasculature. HARDWARE: None in the chest. OTHER: Chest leads are in place. IMPRESSION: NO ACUTE DISEASE. TECHNICAL DOCUMENTATION: JOB ID: [id number] [id number] [employer]- All Rights Reserved
[2017-04-06 10:50] LABS: HEMATOCRIT 34.6 % (37.9-51.0); HEMOGLOBIN 11.6 g/dL (13.5-17.0); MEAN CORPUSCULAR HEMOGLOBIN 32.5 pg (27.0-33.4); MEAN CORPUSCULAR HGB CONC 33.4 g/dL (32.0-36.0); PLATELET COUNT 505 10^3/uL (150-450); RED BLOOD COUNT 3.56 10^6/uL (4.35-5.55); WHITE BLOOD COUNT 23.3 10^3/uL (4.0-10.5)
[2017-04-06 10:52] LABS: INTERNATIONAL RATION (INR) 0.99; PROTHROMBIN TIME 13.8 SEC (11.4-15.4)
[2017-04-06 10:56] LABS: VENOUS BLOOD BASE EXCESS -4.8 mmol/L; VENOUS BLOOD HCO3 27.3 mmol/L (20-32)
[2017-04-06 11:07] LABS: ALANINE AMINOTRANSFERASE 34 U/L (21-72); ALBUMIN 3.8 g/dL (3.5-5.0); ALKALINE PHOSPHATASE 105 U/L (38-126); ANION GAP 10 (5-19); ASPARTATE AMINO TRANSFERASE 38 U/L (17-59); BILIRUBIN,DIRECT 0.4 mg/dL (0.0-0.4); BILIRUBIN,TOTAL 0.4 mg/dL (0.2-1.3); BLOOD UREA NITROGEN 11 mg/dL (7-20); CALCIUM 8.6 mg/dL (8.4-10.2); CARBON DIOXIDE 25 mmol/L (22-30); CHLORIDE 103 mmol/L (98-107); GLUCOSE 272 mg/dL (75-110); LIPASE 87.7 U/L (23-300); POTASSIUM 4.1 mmol/L (3.6-5.0); SODIUM 137.5 mmol/L (137-145); TOTAL PROTEIN 6.7 g/dL (6.3-8.2); VENOUS BLOOD PH 7.1 (7.30-7.42)
[2017-04-06 11:08] LABS: VENOUS BLOOD PCO2 89.7 mmHg (35-63)
[2017-04-06 11:17] LABS: ABSOLUTE LYMPHOCYTES# (MANUAL) 8.6 10^3/uL (0.5-4.7); ABSOLUTE MONOCYTES # (MANUAL) 1.4 10^3/uL (0.1-1.4); BASOPHILS % (MANUAL) 0 % (0-2); EOSINOPHILS % (MANUAL) 1 % (0-6); LYMPHOCYTES % (MANUAL) 37 % (13-45); MONOCYTES % (MANUAL) 6 % (3-13); SEGMENTED NEUTROPHILS % (MAN) 56 % (42-78); TOTAL CELLS COUNTED 100
[2017-04-06 11:20] LABS: ANISOCYTOSIS 1+; OVALOCYTES SLIGHT; PLATELET COMMENT ADEQUATE; POIKILOCYTOSIS SLIGHT; POLYCHROMASIA 1+
[2017-04-06 11:21] LABS: MEAN CORPUSCULAR VOLUME 97 fl (80-97); PLATELET CLUMPS PRESENT
[2017-04-06 11:22] LABS: TROPONIN I 0.015 ng/mL
--- NOTE | 2017-04-06 12:52 | ER Document Report ---
ED General - General Chief Complaint: Respiratory Distress Stated Complaint: BREATHING CONCERN Time Seen by Provider: 04/06/17 10:08 TRAVEL OUTSIDE OF THE [place] IN LAST 30 DAYS: No - HPI Patient complains to provider of: Respiratory distress Notes: Patient coming from local [facility] for respiratory distress. Patient was recently admitted to the hospital respiratory distress and will either be pneumonia. Patient was found to be hypoxic upon EMS arrival with SPO2 in the 60s patient was placed on CPAP given 2 g of mag and transported to the ER along with Solu-Medrol and albuterol treatments. Upon my evaluation patient was transitioned over to BiPAP settings 05/10 with an FiO2 of 100 slowly trending from SPO2 of 70 eventually at the 5 minutes patient did become up to 100. Patient states his breathing is better denies any pain. Patient does have a history of C. difficile. Patient currently afebrile. - Related Data Allergies/Adverse Reactions: walnut Allergy (Unknown, Verified 03/10/17 05:00) Past Medical History - Social History Smoking Status: Unknown if Ever Smoked Frequency of alcohol use: None Drug Abuse: None Family History: Reviewed & Not Pertinent Patient has suicidal ideation: No Patient has homicidal ideation: No - Past Medical History Cardiac Medical History: Reports: Hx Congestive Heart Failure, Hx Heart Attack Pulmonary Medical History: Reports: Hx COPD Endocrine Medical History: Reports: Hx Diabetes Mellitus Type 1, Hx Diabetes Mellitus Type 2 - insulin dependent Renal/ Medical History: Denies: Hx Peritoneal Dialysis GI Medical History: Reports: Hx Gastroesophageal Reflux Disease Psychiatric Medical History: Reports: Hx Depression Traumatic Medical History: Denies: Hx Traumatic Brain Injury Past Surgical History: Reports: Other - unable to obtain - Immunizations Immunizations up to date: Yes Hx Diphtheria, Pertussis, Tetanus Vaccination: Yes Review of Systems - Review of Systems -: Yes ROS unobtainable due to patient's medical condition - Respiratory distress Physical Exam - Vital signs Vitals: Resp Pulse Ox 27 H 83 L 04/06/17 09:56 04/06/17 09:56 Interpretation: Tachycardic, Hypoxic - General General appearance: Other - Anxious in respiratory distress In distress: Moderate - HEENT Head: Normocephalic, Atraumatic Eyes: Normal Pupils: PERRL - Respiratory Respiratory status: Respiratory distress Chest status: Nontender Breath sounds: Rhonchi, Wheezing Chest palpation: Normal - Cardiovascular Rhythm: Regular, Tachycardia Heart sounds: Normal auscultation Murmur: No - Abdominal Inspection: Normal Distension: No distension Bowel sounds: Normal Tenderness: Nontender Organomegaly: No organomegaly - Back Back: Normal, Nontender - Extremities General upper extremity: Normal inspection, Nontender, Normal color, Normal ROM , Normal temperature General lower extremity: Normal inspection, Nontender, Normal color, Normal ROM , Normal temperature, Normal weight bearing. No: Berta's sign - Neurological Neuro grossly intact: Yes Cognition: Normal Orientation: AAOx4 [place] Coma Scale Eye Opening: Spontaneous [place] Coma Scale Verbal: Oriented [place] Coma Scale Motor: Obeys Commands [place] Coma Scale Total: 15 Speech: Normal Motor strength normal: LUE, RUE, LLE, RLE Sensory: Normal - Psychological Associated symptoms: Normal affect, Normal mood - Skin Skin Temperature: Warm Skin Moisture: Dry Skin Color: Normal Course - Re-evaluation Re-evalutation: 04/06/17 15:21 Patient continued to improve on BiPAP. Patient does have leukocytosis however no signs of pneumonia on his chest x-ray. Discussed with covering PCP at this time agrees with this is treated patient has a COPD exacerbation. Patient will be admitted to the [facility]. - Vital Signs Vital signs: Temp Pulse Resp BP Pulse Ox 97.7 F 14 118/79 99 04/06/17 10:19 04/06/17 15:01 04/06/17 15:01 04/06/17 15:01 - Laboratory Result Diagrams: 04/06/17 10:04 04/06/17 10:04 Laboratory results interpreted by me: 04/06/17 04/06/17 04/06/17 10:04 10:04 10:04 WBC 23.3 H RBC 3.56 L Hgb 11.6 L Hct 34.6 L RDW 16.0 H Plt Count 505 H Abs Neuts (Manual) 13.0 H Abs Lymphs (Manual) 8.6 H VBG pH VBG pCO2 Glucose 272 H POC Glucose Magnesium 3.3 H NT-Pro-B Natriuret Pep 1990 H 04/06/17 04/06/17 10:04 11:12 WBC RBC Hgb Hct RDW Plt Count Abs Neuts (Manual) Abs Lymphs (Manual) VBG pH 7.10 L* VBG pCO2 89.7 H* Glucose POC Glucose 233 H Magnesium NT-Pro-B Natriuret Pep Critical Care Note - Critical Care Note Total time excluding time spent on procedures (mins): 35 Comments: Respiratory distress requiring multiple evaluations and changing her BiPAP settings. 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
[2017-04-06] MEDS ORDERED: ALBUTEROL SULFATE 0.083% NEB 2.5 MG/3 ML AMPUL NEB ONE (18:46)
[2017-04-06] MEDS ORDERED: ETOMIDATE INJ/PF 20 MG/10 ML SDV IV ONE ×2 (18:53→19:45)
[2017-04-06] MEDS ORDERED: MIDAZOLAM HCL 50 MG/100 ML RTUINJ IV ONE (18:54)
[2017-04-06] MEDS ORDERED: VECURONIUM BROMIDE INJ 10 MG VIAL IV ONE ×3 (18:54→19:45)
[2017-04-06] MEDS ORDERED: MIDAZOLAM 2 MG/2 ML INJ IV ONE (19:36)
[2017-04-06] MEDS ORDERED: MIDAZOLAM HCL 50 MG/100 ML RTUINJ IV PRN (19:45)
[2017-04-06] MEDS ORDERED: PROPOFOL 100 ML IV ONE (19:51)
--- NOTE | 2017-04-06 20:04 | PDOC H&P ---
History of Present Illness Admission Date/PCP: 04/06/17 12:59 CONSTANCE NAIDU MD Patient complains of: Difficulty with breathing History of Present Illness: TAMMY RICHARDS is a 61 year old male patient of Dr Naidu brought the to ED via EMS service due to worsening difficulty with breathing and associated hypoxemia upon arrival of the EMS personnel. He was treated on site with IV Solu Medrol, IV Magnesium and bronchodilators and supported with CPAP enroute to the ED. He was initially treated with BiPAP support and bronchodilator with supplemental oxygen in the ED with some improvement but subsequent effort by patient using the rest room led to significant desaturation and despite adjustment of his BiPAP and supplemental oxygen he continue to demonstrate poor saturation with increase work of breathing necessitating intubation and ventilator support. His morbidities include COPD with prior intubation and recent discharge from this hospital, Diabetes Mellitus type 2, CHF, CAD with Old [place], GERD, and Depression. Past Medical History Cardiac Medical History: Reports: Congestive Heart Failure, Myocardial Infarction Pulmonary Medical History: Reports: Chronic Obstructive Pulmonary Disease (COPD) Endocrine Medical History: Reports: Diabetes Mellitus Type 2 - insulin dependent GI Medical History: Reports: Gastroesophageal Reflux Disease Psychiatric Medical History: Reports: Depression Traumatic Medical History: Denies: Traumatic Brain Injury Hematology: Denies: Sickle Cell Disease Past Surgical History Past Surgical History: Reports: Other - unable to obtain Social History Smoking Status: Unknown if Ever Smoked Frequency of Alcohol Use: Occasional Hx Recreational Drug Use: No - unable to obtain Drugs: Cocaine Hx Prescription Drug Abuse: No - Advance Directive Resuscitation Status: Full Code Family History Family History: Reviewed & Not Pertinent Parental Family History Reviewed: Yes Children Family History Reviewed: Yes Sibling(s) Family History Reviewed.: Yes Medication/Allergy Home Medications: Acetaminophen [Tylenol 325 mg Tablet] 650 mg PO Q4HP PRN 04/06/17 Aspirin [Ecotrin 81 mg EC Tablet] 81 mg PO DAILY 04/06/17 Atorvastatin Calcium [Lipitor 40 mg Tablet] 40 mg PO QHS 04/06/17 Carvedilol [Coreg 3.125 mg Tablet] 3.125 mg PO Q12 04/06/17 Finasteride [Proscar 5 mg Tablet] 5 mg PO DAILY 04/06/17 Gabapentin [Neurontin 300 mg Capsule] 300 mg PO Q8 04/06/17 Insulin Glargine,Hum.rec.anlog [Lantus Insulin Inj 300 Unit/3 ml Pen] 16 unit SUBCUT NOON 04/06/17 Lisinopril [Prinivil 2.5 mg Tablet] 2.5 mg PO DAILY 04/06/17 Metformin HCl [Glucophage 500 mg Tablet] 500 mg PO BIDACBS 04/06/17 Omeprazole 20 mg PO DAILY 04/06/17 Oxybutynin Chloride [Ditropan 5 Mg Tablet] 5 mg PO DAILY 04/06/17 Sennosides/Docusate 8.6-50 mg [Senna Plus Tablet] 2 tab PO QHS 04/06/17 Spironolactone [Aldactone 25 mg Tablet] 25 mg PO DAILY 04/06/17 Tamsulosin HCl [Flomax 0.4 mg Cap.sr] 0.4 mg PO DAILY 04/06/17 Triamcinolone Acetonide [Aristocort 0.1% Ointment 15 gm] 1 applic TP BID Allergies/Adverse Reactions: walnut Allergy (Unknown, Verified 03/10/17 05:00) Review of Systems ROS unobtainable: Due to endotracheal tube Physical Exam Vital Signs: Temp Pulse Resp BP Pulse Ox 98.3 F 38 H 117/76 81 L 04/06/17 18:00 04/06/17 19:00 04/06/17 17:01 04/06/17 19:00 Physical Exam: Intubated and vent supported General appearance: PRESENT: well-developed, well-nourished Head exam: PRESENT: atraumatic, normocephalic Eye exam: PRESENT: conjunctiva pink, EOMI, PERRLA. ABSENT: scleral icterus Ear exam: PRESENT: normal external ear exam Mouth exam: PRESENT: moist, other - ET and OG tubes insitu Respiratory exam: PRESENT: decreased breath sounds - bilaterally Cardiovascular exam: PRESENT: RRR, +S1, +S2, tachycardia. ABSENT: systolic murmur Pulses: PRESENT: normal dorsalis pedis pul, +2 pedal pulses bilateral Vascular exam: PRESENT: normal capillary refill. ABSENT: pallor GI/Abdominal exam: PRESENT: normal bowel sounds, soft. ABSENT: distended, guarding, mass, organolmegaly, rebound, tenderness Rectal exam: PRESENT: deferred Extremities exam: ABSENT: pedal edema Musculoskeletal exam: PRESENT: deformity - related to multiple joints involvement with arthritis Neurological exam: PRESENT: altered - sedated for intubation Skin exam: PRESENT: dry, intact, warm. ABSENT: cyanosis, rash Results Laboratory Results: I reviewed his lab results on [email or web address] and form significant part of my medical decision making on this case Impressions: Chest X-Ray 04/06/17 10:04 IMPRESSION: NO ACUTE DISEASE. Assessment & Plan - Diagnosis (1) Acute respiratory failure with hypoxia and hypercapnia Is this a current diagnosis for this admission?: Yes Plan: See covering admitting physician orders (2) COPD exacerbation Is this a current diagnosis for this admission?: Yes Plan: See covering admitting physician orders (3) Diabetes mellitus type 2 in nonobese Is this a current diagnosis for this admission?: Yes Plan: See covering admitting physician orders (4) Chronic systolic CHF (congestive heart failure), NYHA class 3 Is this a current diagnosis for this admission?: Yes Plan: See covering admitting physician orders (5) Coronary artery disease Qualifiers: Coronary Disease-Associated Artery/Lesion type: [place] artery [place] vs. transplanted heart: [place] heart Associated angina: angina presence unspecified Qualified Code(s): I25.10 - Atherosclerotic heart disease of [place] coronary artery without angina pectoris Is this a current diagnosis for this admission?: Yes Plan: See covering admitting physician orders (6) Old myocardial infarction Is this a current diagnosis for this admission?: Yes Plan: See covering admitting physician orders (7) BPH loc w urin obs/LUTS Is this a current diagnosis for this admission?: Yes Plan: See covering admitting physician orders - Time Time Spent: 50 to 70 Minutes Medications reviewed and adjusted accordingly: Yes Anticipated discharge: SNF Within: Other - Inpatient Certification Based on my medical assessment, after consideration of the patient's comorbidities, presenting symptoms, or acuity I expect that the services needed warrant INPATIENT care.: Yes I certify that my determination is in accordance with my understanding of Medicare's requirements for reasonable and necessary INPATIENT services [42 CFR 412.3e].: Yes Medical Necessity: Need Close Monitoring Due to Risk of Patient Decompensation, Need For IV Fluids, Need For Continuous Telemetry Monitoring, Need for Nebulizer Therapy and Monitoring of Response, Need for IV Antibiotics, Risk of Complication if Not Cared For in Hospital Post Hospital Care: D/C or Transfer Summary - Plan Summary Plan Summary: See covering admitting physician orders
[2017-04-06] MEDS ORDERED: GLUCAGON,HUMAN RECOMB 1 MG INJ SUBCUT PRN (20:05)
[2017-04-06] MEDS ORDERED: DEXTROSE 50%-WATER 25 GM/50 ML DISP.SYRIN IV PRN ×2 (20:05)
[2017-04-06] MEDS ORDERED: DEXTROSE 40% GEL 15 GM TUBE PO PRN ×2 (20:05)
[2017-04-06] MEDS ORDERED: PROPOFOL 100 ML IV PRN (20:06)
[2017-04-06] MEDS ORDERED: ALBUTEROL SULFATE HFA (90 MCG/PUFF) 200 PUFF/8.5 GM MDI IH PRN (20:16)
[2017-04-06] MEDS ORDERED: ACETAMINOPHEN 325 MG TABLET NG PRN (20:23)
--- NOTE | 2017-04-06 20:24 | RADIOLOGY REPORT (SQ) ---
EXAM DESCRIPTION: CHEST SINGLE VIEW COMPLETED DATE/TIME: 04/06/2017 8:15 pm REASON FOR STUDY: S/P ETT PLACEMENT COMPARISON: 04/06/2017 earlier. FINDINGS: Single-view chest AP portable supine. Endotracheal tube in place, tip difficult to see but grossly appropriate. Nasogastric tube down with tip in the stomach. This should be advanced further as the side hole lies at the GE junction. Slight interstitial prominence, but overall improved aeration compared to prior. Increased lung espinoza ings are likely related to supine positioning. IMPRESSION: 1. Endotracheal tube tip difficult to verify but likely appropriate. 2. Nasogastric tub e should be slightly advanced. TECHNICAL DOCUMENTATION: JOB ID: [id number]
[2017-04-06] MEDS ORDERED: LEVOFLOXACIN 500 MG/D5W RTU 500 MG/100 ML RTUPB IV ONE (21:00)
[2017-04-06] MEDS ORDERED: CEFEPIME 2 GM/D5W RTU 2 GM/50 ML RTUPB IV SCH (22:00)
[2017-04-06 22:05] LABS: APPEARANCE,URINE TURBID; BILIRUBIN,URINE NEGATIVE (NEGATIVE); COLOR,URINE YELLOW; GLUCOSE, URINE >=500 mg/dL (NEGATIVE); KETONES,URINE NEGATIVE (NEGATIVE); LEUKOCYTE ESTERASE,URINE LARGE (NEGATIVE); NITRITE,URINE NEGATIVE (NEGATIVE); PROTEIN,URINE 100 mg/dL (NEGATIVE); URINE SPECIFIC GRAVITY 1.012; UROBILINOGEN,URINE NEGATIVE mg/dL (<2.0)
--- NOTE | 2017-04-06 22:06 | EKG REPORT ---
SEVERITY:- BORDERLINE ECG - SINUS TACHYCARDIA PROBABLE LEFT ATRIAL ABNORMALITY LVH NONSPECIFIC ST-T CHANGES : Confirmed by: Al Xiong 06-Apr-2017 22:05:33
[2017-04-06] MEDS: CARVEDILOL 3.125 MG TABLET NG SCH (23:25)
[2017-04-06] MEDS: NORMAL SALINE 1000 ML 1,000 ML IV PRN (23:26)
[2017-04-06] MEDS: ATORVASTATIN CALCIUM 40 MG TABLET NG SCH (23:26)
[2017-04-06] MEDS: FAMOTIDINE 20 MG TABLET PO SCH (23:26)
[2017-04-07] MEDS ORDERED: PROPOFOL 100 ML IV ONE (01:14)
[2017-04-07] MEDS ORDERED: PROPOFOL 100 ML IV PRN (02:59)
[2017-04-07] MEDS: IPRATROPIUM BROMIDE HFA 17 MCG/PUFF 200 PUFF/12.9 GM MDI IH SCH ×5 (05:15→19:59)
[2017-04-07 07:00] LABS: ABSOLUTE LYMPHOCYTES (AUTO) 1.9 10^3/uL (0.5-4.7); ABSOLUTE MONOCYTES (AUTO) 1.2 10^3/uL (0.1-1.4); ABSOLUTE NEUT (AUTO) 8.3 10^3/uL (1.7-8.2); BASOPHILS % (AUTO) 0.3 % (0-2); EOSINOPHILS % (AUTO) 0.1 % (0-6); HEMATOCRIT 30.8 % (37.9-51.0); HEMOGLOBIN 10.2 g/dL (13.5-17.0); LYMPHOCYTES % (AUTO) 16.3 % (13-45); MEAN CORPUSCULAR HEMOGLOBIN 32.1 pg (27.0-33.4); MEAN CORPUSCULAR HGB CONC 33.2 g/dL (32.0-36.0); MEAN CORPUSCULAR VOLUME 97 fl (80-97); MONOCYTES % (AUTO) 10.7 % (3-13); PLATELET COUNT 331 10^3/uL (150-450); RED BLOOD COUNT 3.19 10^6/uL (4.35-5.55); RED CELL DISTRIBUTION WIDTH 15.9 % (11.5-14.0); SEGMENTED NEUTROPHILS % (AUTO) 72.6 % (42-78); TOTAL CELLS COUNTED % (AUTO) 100 %; WHITE BLOOD COUNT 11.4 10^3/uL (4.0-10.5)
[2017-04-07 07:18] LABS: ALANINE AMINOTRANSFERASE 26 U/L (21-72); ALBUMIN 2.8 g/dL (3.5-5.0); ALKALINE PHOSPHATASE 58 U/L (38-126); ANION GAP 7 (5-19); ASPARTATE AMINO TRANSFERASE 18 U/L (17-59); BILIRUBIN,DIRECT 0.1 mg/dL (0.0-0.4); BILIRUBIN,TOTAL 0.2 mg/dL (0.2-1.3); BLOOD UREA NITROGEN 17 mg/dL (7-20); CALCIUM 8.3 mg/dL (8.4-10.2); CARBON DIOXIDE 23 mmol/L (22-30); CHLORIDE 106 mmol/L (98-107); CHOLESTEROL 106.72 mg/dL (0-200); GLUCOSE 108 mg/dL (75-110); SODIUM 136.3 mmol/L (137-145); TOTAL PROTEIN 4.9 g/dL (6.3-8.2); TRIGLYCERIDES 70 mg/dL (<150)
[2017-04-07 07:29] LABS: DIRECT LDL 49 mg/dL (<100)
[2017-04-07 07:42] LABS: POTASSIUM 5.4 mmol/L (3.6-5.0)
--- NOTE | 2017-04-07 07:48 | RADIOLOGY REPORT (SQ) ---
EXAM DESCRIPTION: CHEST SINGLE VIEW CLINICAL HISTORY: 61 years Male, Acute Respiratory failure COMPARISON: 2.17.18. NUMBER OF VIEWS/TECHNIQUE: 1/AP LIMITATIONS: None. FINDINGS: Mild interstitial markings, small patchiness of the right lower lung field, normal cardiac silhouette, adequate appearing endotracheal tube, likely adequate enteric tube. No pneumothorax. No acute bone defect. IMPRESSION: Interval improvement with residual small right lower airspace opacity. Lines and tubes.
[2017-04-07] MEDS: CARVEDILOL 3.125 MG TABLET NG SCH ×2 (10:33→21:42)
[2017-04-07] MEDS: CEFEPIME HCL 2 GM in NORMAL SALINE 100 ML IV SCH ×2 (10:33→21:42)
[2017-04-07] MEDS: LISINOPRIL 5 MG TABLET PO SCH (10:37)
[2017-04-07] MEDS: FAMOTIDINE 20 MG TABLET PO SCH ×2 (10:37→21:42)
--- NOTE | 2017-04-07 10:38 | PDOC PROGRESS REPORT ---
Subjective Progress Note for:: 04/07/17 Subjective:: Patient remain intubated and vent supported. Fio2 down to 35% with satisfactory pulse oximetry saturation. No reported fever. No diarrhea. Remain sedated. Reason For Visit: ACUTE RESPIRATORY FAILURE WITH HYPOXIA AND Physical Exam Vital Signs: Temp Pulse Resp BP Pulse Ox 98.4 F 95 29 H 80/60 L 98 04/07/17 08:19 04/07/17 08:24 04/07/17 08:19 04/07/17 08:19 04/07/17 08:19 Intake & Output 04/06/17 04/07/17 04/08/17 06:59 06:59 06:59 Output Total 75 Balance -75 Weight 72 kg Physical Exam: Intubated with ET and OG tubes insitu. General appearance: PRESENT: well-nourished Head exam: PRESENT: atraumatic, normocephalic Eye exam: PRESENT: conjunctiva pink, PERRLA. ABSENT: scleral icterus Mouth exam: PRESENT: moist - fairly Teeth exam: PRESENT: poor dentation Respiratory exam: PRESENT: decreased breath sounds - bilaterally Cardiovascular exam: PRESENT: RRR. ABSENT: diastolic murmur, rubs, systolic murmur Vascular exam: PRESENT: normal capillary refill. ABSENT: pallor GI/Abdominal exam: PRESENT: normal bowel sounds, soft. ABSENT: distended, mass , organolmegaly Extremities exam: ABSENT: pedal edema Musculoskeletal exam: PRESENT: deformity - related to multiple joints involvement with arthritis Neurological exam: PRESENT: altered - sedated on Propofol and midazolam infusion Skin exam: PRESENT: dry, intact, warm. ABSENT: cyanosis, rash Results Laboratory Results: 04/07/17 06:43 04/07/17 06:43 04/06/17 04/07/17 04/07/17 21:35 06:43 06:43 WBC 11.4 H RBC 3.19 L Hgb 10.2 L Hct 30.8 L MCV 97 MCH 32.1 MCHC 33.2 RDW 15.9 H Plt Count 331 Seg Neutrophils % 72.6 Lymphocytes % 16.3 Monocytes % 10.7 Eosinophils % 0.1 Basophils % 0.3 Absolute Neutrophils 8.3 H Absolute Lymphocytes 1.9 Absolute Monocytes 1.2 Absolute Eosinophils 0.0 Absolute Basophils 0.0 Sodium 136.3 L Potassium 5.4 H D Chloride 106 Carbon Dioxide 23 Anion Gap 7 BUN 17 Creatinine 0.67 Est GFR ( Amer) > 60 Est GFR (Non-Af Amer) > 60 Glucose 108 Calcium 8.3 L Magnesium 1.8 D Total Bilirubin 0.2 AST 18 ALT 26 Alkaline Phosphatase 58 Total Protein 4.9 L Albumin 2.8 L Triglycerides 70 Cholesterol 106.72 LDL Cholesterol Direct 49 VLDL Cholesterol 14.0 HDL Cholesterol 54 Urine Color YELLOW Urine Appearance TURBID Urine pH 5.0 Ur Specific [place] 1.012 Urine Protein 100 H Urine Glucose (UA) >=500 H Urine Ketones NEGATIVE Urine Blood MODERATE H Urine Nitrite NEGATIVE Ur Leukocyte Esterase LARGE H Urine WBC (Auto) >182 Urine RBC (Auto) 71 Impressions: Chest X-Ray 04/07/17 06:00 IMPRESSION: Interval improvement with residual small right lower airspace opacity. Lines and tubes. Assessment & Plan - Diagnosis (1) Acute respiratory failure with hypoxia and hypercapnia Is this a current diagnosis for this admission?: Yes (2) COPD exacerbation Is this a current diagnosis for this admission?: Yes (3) Diabetes mellitus type 2 in nonobese Is this a current diagnosis for this admission?: Yes (4) Chronic systolic CHF (congestive heart failure), NYHA class 3 Is this a current diagnosis for this admission?: Yes (5) Coronary artery disease Qualifiers: Coronary Disease-Associated Artery/Lesion type: [place] artery [place] vs. transplanted heart: [place] heart Associated angina: angina presence unspecified Qualified Code(s): I25.10 - Atherosclerotic heart disease of [place] coronary artery without angina pectoris Is this a current diagnosis for this admission?: Yes (6) Old myocardial infarction Is this a current diagnosis for this admission?: Yes (7) BPH loc w urin obs/LUTS Is this a current diagnosis for this admission?: Yes - Time Time Spent with patient: 25-34 minutes Medications reviewed and adjusted accordingly: Yes Anticipated discharge: SNF Within: Other - Inpatient Certification Based on my medical assessment, after consideration of the patient's comorbidities, presenting symptoms, or acuity I expect that the services needed warrant INPATIENT care.: Yes I certify that my determination is in accordance with my understanding of Medicare's requirements for reasonable and necessary INPATIENT services [42 CFR 412.3e].: Yes Medical Necessity: Need Close Monitoring Due to Risk of Patient Decompensation, Need For IV Fluids, Need For Continuous Telemetry Monitoring, Need for Nebulizer Therapy and Monitoring of Response, Need for IV Antibiotics, Risk of Complication if Not Cared For in Hospital Post Hospital Care: D/C or Transfer Summary - Plan Summary Plan Summary: Continue vent support. Start on enteral feeding with Glucena. Maintain on current antibiotic coverage. Follow up on culture findings. Taper off IV Propofol to transition sedative agent to Midazolam due to low blood pressure and need for high dose Propofol for sedation.
[2017-04-07] MEDS: NORMAL SALINE 1000 ML 1,000 ML IV PRN ×2 (10:53→20:15)
[2017-04-07 12:12] LABS: ARTERIAL BLOOD BASE EXCESS -1.4 mmol/L; ARTERIAL BLOOD FIO2 30%; ARTERIAL BLOOD H2CO3 1.19 mmol/L (1.05-1.35); ARTERIAL BLOOD HCO3 23.4 mmol/L (20-26); ARTERIAL BLOOD PCO2 39.6 mmHg (35-45); ARTERIAL BLOOD PH 7.39 (7.35-7.45); ARTERIAL BLOOD TOTAL CO2 24.6 mmol/L (23-27)
[2017-04-07] MEDS: MIDAZOLAM HCL 50 MG/100 ML RTUINJ IV PRN ×2 (12:32→21:43)
--- NOTE | 2017-04-07 20:16 | PDOC CONSULTATION ---
Consultation Consult Date: 04/07/17 Attending physician:: ANNABEL BLUE Consult reason:: respfailure pna History of Present Illness Admission Date/PCP: 04/06/17 20:36 CONSTANCE NAIDU MD History of Present Illness: TAMMY RICHARDS is a 61 year old male patient of Dr Naidu brought the to ED via EMS service due to worsening difficulty with breathing and associated hypoxemia upon arrival of the EMS personnel. He was treated on site with IV Solu Medrol, IV Magnesium and bronchodilators and supported with CPAP enroute to the ED. He was initially treated with BiPAP support and bronchodilator with supplemental oxygen in the ED with some improvement but subsequent effort by patient using the rest room led to significant desaturation and despite adjustment of his BiPAP and supplemental oxygen he continue to demonstrate poor saturation with increase work of breathing necessitating intubation and ventilator support. His morbidities include COPD with prior intubation and recent discharge from this hospital, Diabetes Mellitus type 2, CHF, CAD with Old [place], GERD, and Depression. Past Medical History Cardiac Medical History: Reports: Congestive Heart Failure, Myocardial Infarction Pulmonary Medical History: Reports: Chronic Obstructive Pulmonary Disease (COPD) Endocrine Medical History: Reports: Diabetes Mellitus Type 1, Diabetes Mellitus Type 2 - insulin dependent GI Medical History: Reports: Gastroesophageal Reflux Disease Psychiatric Medical History: Reports: Depression Traumatic Medical History: Denies: Traumatic Brain Injury Hematology: Denies: Sickle Cell Disease Past Surgical History Past Surgical History: Reports: Other - unable to obtain Social History Information Source: [facility] Records Smoking Status: Unknown if Ever Smoked Frequency of Alcohol Use: Occasional Hx Recreational Drug Use: No - unable to obtain Drugs: Cocaine Hx Prescription Drug Abuse: No - Advance Directive Resuscitation Status: Full Code Family History Parental Family History Reviewed: No Children Family History Reviewed: No Sibling(s) Family History Reviewed.: No Medication/Allergy Home Medications: Acetaminophen [Tylenol 325 mg Tablet] 650 mg PO Q4HP PRN 04/06/17 Aspirin [Ecotrin 81 mg EC Tablet] 81 mg PO DAILY 04/06/17 Atorvastatin Calcium [Lipitor 40 mg Tablet] 40 mg PO QHS 04/06/17 Carvedilol [Coreg 3.125 mg Tablet] 3.125 mg PO Q12 04/06/17 Finasteride [Proscar 5 mg Tablet] 5 mg PO DAILY 04/06/17 Gabapentin [Neurontin 300 mg Capsule] 300 mg PO Q8 04/06/17 Insulin Glargine,Hum.rec.anlog [Lantus Insulin Inj 300 Unit/3 ml Pen] 16 unit SUBCUT NOON 04/06/17 Lisinopril [Prinivil 2.5 mg Tablet] 2.5 mg PO DAILY 04/06/17 Metformin HCl [Glucophage 500 mg Tablet] 500 mg PO BIDACBS 04/06/17 Omeprazole 20 mg PO DAILY 04/06/17 Oxybutynin Chloride [Ditropan 5 Mg Tablet] 5 mg PO DAILY 04/06/17 Sennosides/Docusate 8.6-50 mg [Senna Plus Tablet] 2 tab PO QHS 04/06/17 Spironolactone [Aldactone 25 mg Tablet] 25 mg PO DAILY 04/06/17 Tamsulosin HCl [Flomax 0.4 mg Cap.sr] 0.4 mg PO DAILY 04/06/17 Triamcinolone Acetonide [Aristocort 0.1% Ointment 15 gm] 1 applic TP BID Allergies/Adverse Reactions: walnut Allergy (Unknown, Verified 03/10/17 05:00) Review of Systems ROS unobtainable: Due to endotracheal tube Physical Exam Vital Signs: Temp Pulse Resp BP Pulse Ox 99.0 F 103 H 20 110/77 100 04/07/17 11:04 04/07/17 10:00 04/07/17 11:04 04/07/17 11:04 04/07/17 10:19 Intake & Output 04/06/17 04/07/17 04/08/17 06:59 06:59 06:59 Output Total 355 Balance -355 Weight 72 kg General appearance: PRESENT: no acute distress, disheveled, well-developed Head exam: PRESENT: atraumatic, normocephalic Eye exam: PRESENT: conjunctiva pale. ABSENT: nystagmus, periorbital swelling, scleral icterus Mouth exam: PRESENT: dry mucosa, neck supple, tongue midline, other - ET tube Teeth exam: PRESENT: poor dentation Neck exam: ABSENT: carotid bruit, JVD, lymphadenopathy, thyromegaly, tracheal deviation, tracheostomy Respiratory exam: PRESENT: crackles, decreased breath sounds, prolonged expiratory phas, rales, rhonchi, symmetrical, unlabored. ABSENT: retraction, stridor Cardiovascular exam: PRESENT: RRR, +S1, +S2 Pulses: PRESENT: normal radial pulses GI/Abdominal exam: PRESENT: diminished bowel sounds, soft Gentrourinary exam: PRESENT: indwelling catheter Extremities exam: ABSENT: calf tenderness, clubbing Musculoskeletal exam: ABSENT: ambulatory, dislocation, full ROM Neurological exam: ABSENT: alert, awake, oriented to person Skin exam: PRESENT: dry, warm Results Laboratory Results: 04/07/17 06:43 04/07/17 06:43 04/06/17 04/07/17 04/07/17 21:35 06:43 06:43 WBC 11.4 H RBC 3.19 L Hgb 10.2 L Hct 30.8 L MCV 97 MCH 32.1 MCHC 33.2 RDW 15.9 H Plt Count 331 Seg Neutrophils % 72.6 Lymphocytes % 16.3 Monocytes % 10.7 Eosinophils % 0.1 Basophils % 0.3 Absolute Neutrophils 8.3 H Absolute Lymphocytes 1.9 Absolute Monocytes 1.2 Absolute Eosinophils 0.0 Absolute Basophils 0.0 Carbonic Acid HCO3/H2CO3 Ratio ABG pH ABG pCO2 ABG pO2 ABG HCO3 ABG O2 Saturation ABG Base Excess FiO2 Sodium 136.3 L Potassium 5.4 H D Chloride 106 Carbon Dioxide 23 Anion Gap 7 BUN 17 Creatinine 0.67 Est GFR ( Amer) > 60 Est GFR (Non-Af Amer) > 60 Glucose 108 Calcium 8.3 L Magnesium 1.8 D Total Bilirubin 0.2 AST 18 ALT 26 Alkaline Phosphatase 58 Total Protein 4.9 L Albumin 2.8 L Triglycerides 70 Cholesterol 106.72 LDL Cholesterol Direct 49 VLDL Cholesterol 14.0 HDL Cholesterol 54 Urine Color YELLOW Urine Appearance TURBID Urine pH 5.0 Ur Specific [place] 1.012 Urine Protein 100 H Urine Glucose (UA) >=500 H Urine Ketones NEGATIVE Urine Blood MODERATE H Urine Nitrite NEGATIVE Ur Leukocyte Esterase LARGE H Urine WBC (Auto) >182 Urine RBC (Auto) 71 04/07/17 11:55 WBC RBC Hgb Hct MCV MCH MCHC RDW Plt Count Seg Neutrophils % Lymphocytes % Monocytes % Eosinophils % Basophils % Absolute Neutrophils Absolute Lymphocytes Absolute Monocytes Absolute Eosinophils Absolute Basophils Carbonic Acid 1.19 HCO3/H2CO3 Ratio 19:1 ABG pH 7.39 ABG pCO2 39.6 ABG pO2 58.0 L ABG HCO3 23.4 ABG O2 Saturation 90.0 L ABG Base Excess -1.4 FiO2 30% Sodium Potassium Chloride Carbon Dioxide Anion Gap BUN Creatinine Est GFR ( Amer) Est GFR (Non-Af Amer) Glucose Calcium Magnesium Total Bilirubin AST ALT Alkaline Phosphatase Total Protein Albumin Triglycerides Cholesterol LDL Cholesterol Direct VLDL Cholesterol HDL Cholesterol Urine Color Urine Appearance Urine pH Ur Specific [place] Urine Protein Urine Glucose (UA) Urine Ketones Urine Blood Urine Nitrite Ur Leukocyte Esterase Urine WBC (Auto) Urine RBC (Auto) Impressions: Chest X-Ray 04/07/17 06:00 IMPRESSION: Interval improvement with residual small right lower airspace opacity. Lines and tubes. Assessment & Plan - Diagnosis (1) Acute respiratory failure with hypoxia and hypercapnia Is this a current diagnosis for this admission?: Yes Plan: support ventilation and o2 as needed (2) COPD exacerbation Is this a current diagnosis for this admission?: Yes - Time Total Critical Time (Minutes): 55
[2017-04-07] MEDS: LEVOFLOXACIN 500 MG/D5W RTU 500 MG/100 ML RTUPB IV SCH (21:42)
[2017-04-07] MEDS: ATORVASTATIN CALCIUM 40 MG TABLET NG SCH (21:42)
[2017-04-08] MEDS: IPRATROPIUM BROMIDE HFA 17 MCG/PUFF 200 PUFF/12.9 GM MDI IH SCH ×6 (00:23→20:00)
[2017-04-08 04:16] LABS: ABSOLUTE BASOPHILS # (AUTO) 0.1 10^3/uL (0.0-0.2); ABSOLUTE LYMPHOCYTES (AUTO) 2.2 10^3/uL (0.5-4.7); ABSOLUTE MONOCYTES (AUTO) 1.2 10^3/uL (0.1-1.4); ABSOLUTE NEUT (AUTO) 5.5 10^3/uL (1.7-8.2); BASOPHILS % (AUTO) 0.6 % (0-2); EOSINOPHILS % (AUTO) 0.4 % (0-6); HEMATOCRIT 29.6 % (37.9-51.0); HEMOGLOBIN 10.1 g/dL (13.5-17.0); MEAN CORPUSCULAR HEMOGLOBIN 32.7 pg (27.0-33.4); MEAN CORPUSCULAR HGB CONC 34.2 g/dL (32.0-36.0); MEAN CORPUSCULAR VOLUME 96 fl (80-97); MONOCYTES % (AUTO) 13.2 % (3-13); PLATELET COUNT 269 10^3/uL (150-450); RED CELL DISTRIBUTION WIDTH 16.1 % (11.5-14.0); SEGMENTED NEUTROPHILS % (AUTO) 61.8 % (42-78); TOTAL CELLS COUNTED % (AUTO) 100 %
[2017-04-08 04:45] LABS: ALANINE AMINOTRANSFERASE 30 U/L (21-72); ALBUMIN 2.5 g/dL (3.5-5.0); ALKALINE PHOSPHATASE 55 U/L (38-126); ANION GAP 5 (5-19); ASPARTATE AMINO TRANSFERASE 32 U/L (17-59); BILIRUBIN,DIRECT 0.4 mg/dL (0.0-0.4); BILIRUBIN,TOTAL 0.5 mg/dL (0.2-1.3); BLOOD UREA NITROGEN 13 mg/dL (7-20); CALCIUM 8.2 mg/dL (8.4-10.2); CARBON DIOXIDE 22 mmol/L (22-30); CHLORIDE 107 mmol/L (98-107); GLUCOSE 86 mg/dL (75-110); TOTAL PROTEIN 4.8 g/dL (6.3-8.2)
[2017-04-08 05:21] LABS: POTASSIUM 4.4 mmol/L (3.6-5.0)
[2017-04-08 07:06] LABS: ARTERIAL BLOOD BASE EXCESS -1.1 mmol/L; ARTERIAL BLOOD FIO2 30%; ARTERIAL BLOOD H2CO3 1.07 mmol/L (1.05-1.35); ARTERIAL BLOOD HCO3 22.9 mmol/L (20-26); ARTERIAL BLOOD O2 SATURATION 97.8 % (94-98); ARTERIAL BLOOD PCO2 35.5 mmHg (35-45); ARTERIAL BLOOD PH 7.43 (7.35-7.45); ARTERIAL BLOOD PO2 100.6 mmHg (80-100)
--- NOTE | 2017-04-08 07:58 | RADIOLOGY REPORT (SQ) ---
EXAM DESCRIPTION: CHEST SINGLE VIEW CLINICAL HISTORY: 61 years Male, sepsis COMPARISON: 04/07/17. NUMBER OF VIEWS/TECHNIQUE: 1/AP LIMITATIONS: None. FINDINGS: Small patchiness of the medial right lower lobe, no pneumothorax, normal cardiac silhouette, adequate appearing endotracheal/enteric tubes. No acute bone defect. IMPRESSION: No significant change.
[2017-04-08] MEDS: NORMAL SALINE 1000 ML 1,000 ML IV PRN ×2 (08:25→18:57)
--- NOTE | 2017-04-08 09:34 | PDOC PROGRESS REPORT ---
Subjective Progress Note for:: 04/08/17 Subjective:: The patient is intubated and ROS cannot be obtained Reason For Visit: ACUTE RESPIRATORY FAILURE WITH HYPOXIA AND Physical Exam Vital Signs: Temp Pulse Resp BP Pulse Ox 99.7 F 106 H 15 125/79 100 04/08/17 08:00 04/08/17 08:00 04/08/17 08:00 04/08/17 08:00 04/08/17 08:00 Intake & Output 04/07/17 04/08/17 04/09/17 06:59 06:59 06:59 Intake Total 4694 Output Total 1495 250 Balance 3199 -250 Weight 72 kg Ventilator: CPAP mode/weaning trial. Respiratory rate 12 Lines: Peripheral Antibiotics: Cefepime and Levaquin Drips: Propofol GENERAL: This is a well developed disheveled appearing white male resting on the ventilator currently no acute distress. HEART: Regular rate and rhythm. No murmurs, rubs or gallops. LUNGS: Clear to auscultation anteriorly bilaterally. Managed at the bases with equal rise and fall of the chest. ABDOMEN: Soft, nontender, nondistended with normoactive bowel sounds : Fisher catheter is in place draining meryl colored urine. EXTREMETIES: No clubbing, cyanosis or edema. 2+ peripheral pulses bilaterally. NEURO: Sedated and intubated. Responds to sternal rub. Results Laboratory Results: 04/08/17 04:00 04/08/17 04:00 04/07/17 04/08/17 04/08/17 11:55 04:00 04:00 WBC 9.0 RBC 3.10 L Hgb 10.1 L Hct 29.6 L MCV 96 MCH 32.7 MCHC 34.2 RDW 16.1 H Plt Count 269 Seg Neutrophils % 61.8 Lymphocytes % 24.0 Monocytes % 13.2 H Eosinophils % 0.4 Basophils % 0.6 Absolute Neutrophils 5.5 Absolute Lymphocytes 2.2 Absolute Monocytes 1.2 Absolute Eosinophils 0.0 Absolute Basophils 0.1 Carbonic Acid 1.19 HCO3/H2CO3 Ratio 19:1 ABG pH 7.39 ABG pCO2 39.6 ABG pO2 58.0 L ABG HCO3 23.4 ABG O2 Saturation 90.0 L ABG Base Excess -1.4 FiO2 30% Sodium 134.0 L Potassium 4.4 D Chloride 107 Carbon Dioxide 22 Anion Gap 5 BUN 13 Creatinine 0.56 Est GFR ( Amer) > 60 Est GFR (Non-Af Amer) > 60 Glucose 86 Calcium 8.2 L Magnesium 1.7 Total Bilirubin 0.5 AST 32 ALT 30 Alkaline Phosphatase 55 Total Protein 4.8 L Albumin 2.5 L 04/08/17 07:00 WBC RBC Hgb Hct MCV MCH MCHC RDW Plt Count Seg Neutrophils % Lymphocytes % Monocytes % Eosinophils % Basophils % Absolute Neutrophils Absolute Lymphocytes Absolute Monocytes Absolute Eosinophils Absolute Basophils Carbonic Acid 1.07 HCO3/H2CO3 Ratio 21:1 ABG pH 7.43 ABG pCO2 35.5 ABG pO2 100.6 H ABG HCO3 22.9 ABG O2 Saturation 97.8 ABG Base Excess -1.1 FiO2 30% Sodium Potassium Chloride Carbon Dioxide Anion Gap BUN Creatinine Est GFR ( Amer) Est GFR (Non-Af Amer) Glucose Calcium Magnesium Total Bilirubin AST ALT Alkaline Phosphatase Total Protein Albumin Impressions: Chest X-Ray 04/08/17 06:00 IMPRESSION: No significant change. Assessment & Plan - Diagnosis (1) Acute respiratory failure with hypoxia and hypercapnia Is this a current diagnosis for this admission?: Yes Plan: Secondary to COPD exacerbation and likely underlying pneumonia. Patient is currently intubated and undergoing weaning trials. Continue weaning trials as tolerated. (2) COPD exacerbation Is this a current diagnosis for this admission?: Yes Plan: Continue ventilator with weaning trials. Continue antibiotic coverage. No Solu -Medrol is on board I will add this today. (3) Type 2 diabetes mellitus Qualifiers: Diabetes mellitus complication status: with unspecified complications Diabetes mellitus exterminator termite insulin use: unspecified detention insulin use status Qualified Code(s): E11.8 - Type 2 diabetes mellitus with unspecified complications Is this a current diagnosis for this admission?: Yes Plan: Continue sliding-scale insulin. (4) Alcohol abuse Is this a current diagnosis for this admission?: Yes Plan: Withdrawal precautions. (5) Chronic systolic CHF (congestive heart failure), NYHA class 3 Is this a current diagnosis for this admission?: Yes Plan: The patient appears to be compensated. Continue to monitor. He is receiving 100 mg/h of fluid. Cautioned moving forward with this. Continue carvedilol. (6) Pneumonia Qualifiers: Pneumonia type: due to unspecified organism Laterality: right Lung location: lower lobe of lung Qualified Code(s): J18.1 - Lobar pneumonia, unspecified organism Is this a current diagnosis for this admission?: Yes Plan: Likely due to gram-positive. Continue current antibiotics. Sputum cultures pending. (7) Sepsis Qualifiers: Sepsis type: sepsis due to unspecified organism Qualified Code(s): A41.9 - Sepsis, unspecified organism Is this a current diagnosis for this admission?: Yes Plan: Secondary to underlying pneumonia is characterized by tachycardia, low-grade fever, tachypnea with hypotension and depressed PaO2 FiO2 ratio. Continue antibiotics. (8) Hyponatremia Is this a current diagnosis for this admission?: Yes Plan: Likely due to underlying sepsis. - Time Time Spent with patient: 35 or more minutes - Inpatient Certification Medical Necessity: Need for IV Antibiotics
[2017-04-08] MEDS: MIDAZOLAM HCL 50 MG/100 ML RTUINJ IV PRN ×3 (10:37→23:58)
[2017-04-08] MEDS: METHYLPREDNISOLONE INJ 40 MG/1 ML SDV IV SCH ×2 (10:44→22:25)
[2017-04-08] MEDS: CEFEPIME HCL 2 GM in NORMAL SALINE 100 ML IV SCH ×2 (10:45→22:26)
[2017-04-08] MEDS: FAMOTIDINE 20 MG TABLET PO SCH ×2 (10:46→22:25)
[2017-04-08] MEDS: LISINOPRIL 5 MG TABLET PO SCH (10:47)
[2017-04-08] MEDS: CARVEDILOL 3.125 MG TABLET NG SCH ×2 (10:47→22:25)
[2017-04-08] MEDS: ATORVASTATIN CALCIUM 40 MG TABLET NG SCH (22:25)
[2017-04-08] MEDS: LEVOFLOXACIN 500 MG/D5W RTU 500 MG/100 ML RTUPB IV SCH (22:26)
[2017-04-09] MEDS: IPRATROPIUM BROMIDE HFA 17 MCG/PUFF 200 PUFF/12.9 GM MDI IH SCH ×6 (00:36→21:02)
[2017-04-09 03:42] LABS: ANION GAP 8 (5-19); BLOOD UREA NITROGEN 15 mg/dL (7-20); CALCIUM 8.2 mg/dL (8.4-10.2); CARBON DIOXIDE 19 mmol/L (22-30); CHLORIDE 109 mmol/L (98-107); GLUCOSE 153 mg/dL (75-110); PHOSPHORUS 3.4 mg/dL (2.5-4.5); POTASSIUM 4.6 mmol/L (3.6-5.0); SODIUM 135.6 mmol/L (137-145)
[2017-04-09] MEDS: MIDAZOLAM HCL 50 MG/100 ML RTUINJ IV PRN (04:28)
[2017-04-09] MEDS: NORMAL SALINE 1000 ML 1,000 ML IV PRN (05:46)
[2017-04-09] MEDS: INSULIN LISPRO 100 UNIT/ML 3 ML VIAL SUBCUT PRN ×3 (05:47→23:48)
[2017-04-09] MEDS ORDERED: NORMAL SALINE 1000 ML 1,000 ML IV PRN (09:01)
--- NOTE | 2017-04-09 09:16 | PDOC PROGRESS REPORT ---
Subjective Progress Note for:: 04/09/17 Subjective:: Nursing states that pt has had good urine output. Nursing states that pt's sedation has been weaned this morning. Reason For Visit: ACUTE RESPIRATORY FAILURE WITH HYPOXIA AND Physical Exam Vital Signs: Temp Pulse Resp BP Pulse Ox 97.9 F 108 H 15 123/75 98 04/09/17 08:24 04/09/17 04:55 04/09/17 08:24 04/09/17 08:24 04/09/17 08:24 Intake & Output 04/08/17 04/09/17 04/10/17 06:59 06:59 06:59 Intake Total 4694 2798 Output Total 1495 2670 200 Balance 3199 128 -200 General appearance: PRESENT: other - awake, ETT in place, MMM with white patches present Head exam: PRESENT: atraumatic, normocephalic Eye exam: PRESENT: conjunctiva pink, EOMI. ABSENT: scleral icterus Ear exam: PRESENT: normal external ear exam Mouth exam: PRESENT: moist, tongue midline, other - whites patches on tongue and lip Neck exam: ABSENT: carotid bruit, JVD, lymphadenopathy, thyromegaly Respiratory exam: PRESENT: clear to auscultation vangie, other - ETT in place. ABSENT: rales, rhonchi, wheezes Cardiovascular exam: PRESENT: RRR. ABSENT: diastolic murmur, rubs, systolic murmur Pulses: PRESENT: normal dorsalis pedis pul Vascular exam: PRESENT: normal capillary refill GI/Abdominal exam: PRESENT: normal bowel sounds, soft. ABSENT: distended, guarding, mass, organolmegaly, rebound, tenderness Rectal exam: PRESENT: deferred Extremities exam: PRESENT: full ROM, other - restraints in place. ABSENT: calf tenderness, clubbing, pedal edema Neurological exam: PRESENT: alert, awake, other - ETT in place. ABSENT: motor sensory deficit Skin exam: PRESENT: dry, intact, warm. ABSENT: cyanosis, rash Results Laboratory Results: 04/08/17 04:00 04/09/17 03:21 04/09/17 03:21 Sodium 135.6 L Potassium 4.6 Chloride 109 H Carbon Dioxide 19 L Anion Gap 8 BUN 15 Creatinine 0.51 L Est GFR ( Amer) > 60 Est GFR (Non-Af Amer) > 60 Glucose 153 H Calcium 8.2 L Phosphorus 3.4 Magnesium 1.7 04/06/17 21:35 Catheterized Urine Urine Culture - Final C.albicans/C.dubliniensis Impressions: Chest X-Ray 04/08/17 06:00 IMPRESSION: No significant change. Assessment & Plan - Diagnosis (1) Acute respiratory failure with hypoxia and hypercapnia Is this a current diagnosis for this admission?: Yes Plan: Will place formal consult for Pulmonary physician to help manage pt. Will place order for ABG this morning and change rate to 18 from 23 on vent. Pt currently opening eyes and making direct eye contact. Pt could potentially be weaned. Will check CXR today. (2) COPD exacerbation Is this a current diagnosis for this admission?: Yes Plan: We will continue cefepime and Levaquin. Will schedule breathing treatments every 4 hours and continue Solu-Medrol every 12 hours. Formal consult has been placed for pulmonary. (3) Type 2 diabetes mellitus Qualifiers: Diabetes mellitus complication status: with unspecified complications Diabetes mellitus termination clerk insulin use: unspecified nursing home insulin use status Qualified Code(s): E11.8 - Type 2 diabetes mellitus with unspecified complications Is this a current diagnosis for this admission?: Yes Plan: Hemoglobin A1c of 7.3: We will continue sliding scale insulin regimen. (4) Alcohol abuse Is this a current diagnosis for this admission?: Yes Plan: Patient has been monitored for EtOH withdrawal. Of note patient is a senior care patient. (5) Chronic systolic CHF (congestive heart failure), NYHA class 3 Is this a current diagnosis for this admission?: Yes Plan: Patient appears euvolemic. Will decrease IV fluids to 75 cc/h. (6) Hyponatremia Is this a current diagnosis for this admission?: Yes Plan: in setting of Hyperglycemia: Will continue to monitor. (7) Pneumonia Qualifiers: Pneumonia type: due to unspecified organism Laterality: right Lung location: lower lobe of lung Qualified Code(s): J18.1 - Lobar pneumonia, unspecified organism Is this a current diagnosis for this admission?: Yes Plan: Will continue pt on Cefepime and Levaquin. (8) Sepsis Qualifiers: Sepsis type: sepsis due to unspecified organism Qualified Code(s): A41.9 - Sepsis, unspecified organism Is this a current diagnosis for this admission?: Yes Plan: Secondary to Pneumonia is characterized by tachycardia, low grade fever, tachypnea with hypotension, and depressed Pa02 FI02 ratio. Will continue Cefepime and Levaquin. Will check CXR and ABG this am. (9) Hypomagnesemia Is this a current diagnosis for this admission?: Yes Plan: Will give 2 grams of Magnesium. Will check magnesium in am. (10) Ventricular tachycardia Is this a current diagnosis for this admission?: Yes Plan: in setting of Sepsis: Pt found to have magensium level of 1.7. Will give 2 grams of Magnesium and check EKG. Will consult Cardiology. (11) VRE (vancomycin-resistant Enterococci) infection Is this a current diagnosis for this admission?: No Plan: Colonization: No treatment warranted currently. (12) DVT prophylaxis Is this a current diagnosis for this admission?: Yes Plan: SCDs - Time Time Spent with patient: 25-34 minutes
[2017-04-09 09:20] LABS: ARTERIAL BLOOD BASE EXCESS -2.3 mmol/L; ARTERIAL BLOOD HCO3 20.7 mmol/L (20-26); ARTERIAL BLOOD O2 SATURATION 97.6 % (94-98); ARTERIAL BLOOD PH 7.46 (7.35-7.45); ARTERIAL BLOOD PO2 93.9 mmHg (80-100); ARTERIAL BLOOD TOTAL CO2 21.6 mmol/L (23-27)
[2017-04-09 09:24] LABS: ARTERIAL BLOOD FIO2 25%
--- NOTE | 2017-04-09 09:51 | RADIOLOGY REPORT (SQ) ---
EXAM DESCRIPTION: CHEST SINGLE VIEW COMPLETED DATE/TIME: 04/09/2017 9:25 am REASON FOR STUDY: Resp Failure COMPARISON: Chest films 03/11/2017, 04/06/2017, 04/07/2017, 04/08/2017 EXAM PARAMETERS: NUMBER OF VIEWS: One view. TECHNIQUE: Single frontal radiographic view of the chest acquired. RADIATION DOSE: NA LIMITATIONS: None. FINDINGS: LUNGS AND PLEURA: Persistent airspace disease in the medial right lower lobe atelectasis v ersus pneumonia. Remainder of the lungs are clear. No pleural effusion or pneumothorax. MEDIASTINUM AND HILAR STRUCTURES: No masses. Contour normal. HEART AND VASCULAR STRUCTURES: Heart normal in size. Normal vasculature. BONES: No acute findings. HARDWARE: Endotracheal tube tip 5 cm above the la. Nasogastric tube tip and side port in the sto mach. OTHER: No other significant finding. IMPRESSION: Endotracheal and nasogastric tubes in good positioning. Persistent mild right medial basilar airspace disease atelectasis versus pneumonia TECHNICAL DOCUMENTATION: JOB ID: [id number] [employer]- All Rights Reserved
[2017-04-09] MEDS: CEFEPIME HCL 2 GM in NORMAL SALINE 100 ML IV SCH ×2 (10:50→21:00)
[2017-04-09] MEDS: MAGNESIUM SULFATE/D5W 1 GM/100 ML RTUPB IV SCH ×2 (10:50→13:06)
[2017-04-09] MEDS: METHYLPREDNISOLONE INJ 40 MG/1 ML SDV IV SCH ×2 (10:51→21:01)
[2017-04-09] MEDS: LISINOPRIL 5 MG TABLET PO SCH (10:51)
[2017-04-09] MEDS: FAMOTIDINE 20 MG TABLET PO SCH ×2 (10:52→21:02)
[2017-04-09] MEDS: CARVEDILOL 3.125 MG TABLET NG SCH ×2 (10:52→21:02)
[2017-04-09] MEDS: DAPTOMYCIN 500 MG in NORMAL SALINE 50 ML IV SCH (13:00)
[2017-04-09 17:43] LABS: ARTERIAL BLOOD BASE EXCESS -3.1 mmol/L; ARTERIAL BLOOD FIO2 30%; ARTERIAL BLOOD H2CO3 0.96 mmol/L (1.05-1.35); ARTERIAL BLOOD HCO3 20.3 mmol/L (20-26); ARTERIAL BLOOD O2 SATURATION 98.9 % (94-98); ARTERIAL BLOOD PCO2 31.9 mmHg (35-45); ARTERIAL BLOOD PH 7.42 (7.35-7.45); ARTERIAL BLOOD PO2 140.6 mmHg (80-100); ARTERIAL BLOOD TOTAL CO2 21.3 mmol/L (23-27)
[2017-04-09] MEDS: LEVOFLOXACIN 500 MG/D5W RTU 500 MG/100 ML RTUPB IV SCH (21:01)
--- NOTE | 2017-04-09 21:25 | PDOC PROGRESS REPORT ---
Subjective Progress Note for:: 04/08/17 Subjective:: intubated Reason For Visit: ACUTE RESPIRATORY FAILURE WITH HYPOXIA AND Physical Exam Vital Signs: Temp Pulse Resp BP Pulse Ox 96.4 F L 79 19 153/99 H 95 04/09/17 18:29 04/09/17 20:00 04/09/17 18:00 04/09/17 17:25 04/09/17 20:26 Intake & Output 04/08/17 04/09/17 04/10/17 06:59 06:59 06:59 Intake Total 4694 2798 1195 Output Total 1495 2670 2125 Balance 3199 128 -930 General appearance: PRESENT: no acute distress, disheveled, well-developed. ABSENT: cooperative Head exam: PRESENT: atraumatic, normocephalic Eye exam: PRESENT: conjunctiva pale. ABSENT: nystagmus, periorbital swelling, scleral icterus Mouth exam: PRESENT: dry mucosa, neck supple, tongue midline, other - ET tube Neck exam: ABSENT: carotid bruit, JVD, lymphadenopathy, thyromegaly, tracheal deviation, tracheostomy Respiratory exam: PRESENT: decreased breath sounds, prolonged expiratory phas, rales, rhonchi, symmetrical, wheezes. ABSENT: retraction, stridor, tachypnea Cardiovascular exam: PRESENT: RRR, +S1, +S2 Pulses: PRESENT: normal radial pulses GI/Abdominal exam: PRESENT: diminished bowel sounds, soft Gentrourinary exam: PRESENT: indwelling catheter Extremities exam: ABSENT: calf tenderness, clubbing Musculoskeletal exam: ABSENT: deformity, dislocation Neurological exam: ABSENT: alert, awake, oriented to person Skin exam: PRESENT: dry, warm Results Laboratory Results: 04/08/17 04:00 04/09/17 03:21 04/09/17 04/09/17 04/09/17 03:21 09:10 17:25 Carbonic Acid 0.90 L 0.96 L HCO3/H2CO3 Ratio 23:1 21:1 ABG pH 7.46 H 7.42 ABG pCO2 30.0 L 31.9 L ABG pO2 93.9 140.6 H ABG HCO3 20.7 20.3 ABG O2 Saturation 97.6 98.9 H ABG Base Excess -2.3 -3.1 FiO2 25% 30% Sodium 135.6 L Potassium 4.6 Chloride 109 H Carbon Dioxide 19 L Anion Gap 8 BUN 15 Creatinine 0.51 L Est GFR ( Amer) > 60 Est GFR (Non-Af Amer) > 60 Glucose 153 H Calcium 8.2 L Phosphorus 3.4 Magnesium 1.7 04/07/17 05:30 Tracheal Aspirate Gram Stain - Final 04/07/17 05:30 Tracheal Aspirate Sputum Culture - Final NORMAL GEORGETTE 04/07/17 16:01 Penis Gram Stain - Final Impressions: Chest X-Ray 04/09/17 09:30 IMPRESSION: Endotracheal and nasogastric tubes in good positioning. Persistent mild right medial basilar airspace disease atelectasis versus pneumonia Assessment & Plan - Diagnosis (1) Acute respiratory failure with hypoxia and hypercapnia Is this a current diagnosis for this admission?: Yes Plan: support ventilation and o2 as needed (2) COPD exacerbation Is this a current diagnosis for this admission?: Yes (3) Alcohol abuse Is this a current diagnosis for this admission?: Yes (4) Protein calorie malnutrition Is this a current diagnosis for this admission?: Yes Plan: suggest enteral feeding vital - Time Total Critical Time (Minutes): 45
--- NOTE | 2017-04-09 21:31 | PDOC PROGRESS REPORT ---
Subjective Progress Note for:: 04/09/17 Subjective:: intubated Reason For Visit: ACUTE RESPIRATORY FAILURE WITH HYPOXIA AND Physical Exam Vital Signs: Temp Pulse Resp BP Pulse Ox 96.4 F L 79 19 153/99 H 95 04/09/17 18:29 04/09/17 20:00 04/09/17 18:00 04/09/17 17:25 04/09/17 20:26 Intake & Output 04/08/17 04/09/17 04/10/17 06:59 06:59 06:59 Intake Total 4694 2798 1195 Output Total 1495 2670 2125 Balance 3199 128 -930 General appearance: PRESENT: no acute distress, disheveled, well-developed. ABSENT: cooperative Head exam: PRESENT: atraumatic, normocephalic Eye exam: PRESENT: conjunctiva pale. ABSENT: nystagmus, periorbital swelling, scleral icterus Mouth exam: PRESENT: dry mucosa, neck supple, tongue midline, other - ET tube Neck exam: ABSENT: carotid bruit, JVD, lymphadenopathy, thyromegaly, tracheal deviation, tracheostomy Respiratory exam: PRESENT: crackles, decreased breath sounds, prolonged expiratory phas, rhonchi, symmetrical, unlabored. ABSENT: stridor, tachypnea Cardiovascular exam: PRESENT: RRR, +S1, +S2 Pulses: PRESENT: normal radial pulses GI/Abdominal exam: PRESENT: diminished bowel sounds, soft Gentrourinary exam: PRESENT: indwelling catheter Extremities exam: ABSENT: calf tenderness, clubbing Musculoskeletal exam: ABSENT: deformity, dislocation Neurological exam: PRESENT: awake Skin exam: PRESENT: dry, warm Results Laboratory Results: 04/08/17 04:00 04/09/17 03:21 04/09/17 04/09/17 04/09/17 03:21 09:10 17:25 Carbonic Acid 0.90 L 0.96 L HCO3/H2CO3 Ratio 23:1 21:1 ABG pH 7.46 H 7.42 ABG pCO2 30.0 L 31.9 L ABG pO2 93.9 140.6 H ABG HCO3 20.7 20.3 ABG O2 Saturation 97.6 98.9 H ABG Base Excess -2.3 -3.1 FiO2 25% 30% Sodium 135.6 L Potassium 4.6 Chloride 109 H Carbon Dioxide 19 L Anion Gap 8 BUN 15 Creatinine 0.51 L Est GFR ( Amer) > 60 Est GFR (Non-Af Amer) > 60 Glucose 153 H Calcium 8.2 L Phosphorus 3.4 Magnesium 1.7 04/07/17 05:30 Tracheal Aspirate Gram Stain - Final 04/07/17 05:30 Tracheal Aspirate Sputum Culture - Final NORMAL GEORGETTE 04/07/17 16:01 Penis Gram Stain - Final Impressions: Chest X-Ray 04/09/17 09:30 IMPRESSION: Endotracheal and nasogastric tubes in good positioning. Persistent mild right medial basilar airspace disease atelectasis versus pneumonia Assessment & Plan - Diagnosis (1) Acute respiratory failure with hypoxia and hypercapnia Is this a current diagnosis for this admission?: Yes Plan: min vol;FIO2;rr will extubate (2) COPD exacerbation Is this a current diagnosis for this admission?: Yes Plan: improved (3) Alcohol abuse Is this a current diagnosis for this admission?: Yes (4) Protein calorie malnutrition Is this a current diagnosis for this admission?: Yes Plan: suggest enteral feeding vital - Time Total Critical Time (Minutes): 55
[2017-04-10] MEDS: IPRATROPIUM BROMIDE HFA 17 MCG/PUFF 200 PUFF/12.9 GM MDI IH SCH ×6 (03:03→21:17)
[2017-04-10] MEDS: INSULIN LISPRO 100 UNIT/ML 3 ML VIAL SUBCUT PRN ×2 (05:47→23:53)
[2017-04-10 06:52] LABS: ALANINE AMINOTRANSFERASE 26 U/L (21-72); ALBUMIN 3.1 g/dL (3.5-5.0); ALKALINE PHOSPHATASE 65 U/L (38-126); ANION GAP 7 (5-19); ASPARTATE AMINO TRANSFERASE 25 U/L (17-59); BILIRUBIN,DIRECT 0.5 mg/dL (0.0-0.4); BILIRUBIN,TOTAL 0.6 mg/dL (0.2-1.3); BLOOD UREA NITROGEN 17 mg/dL (7-20); CALCIUM 8.5 mg/dL (8.4-10.2); CARBON DIOXIDE 21 mmol/L (22-30); CHLORIDE 111 mmol/L (98-107); GLUCOSE 189 mg/dL (75-110); POTASSIUM 4.3 mmol/L (3.6-5.0); SODIUM 139.4 mmol/L (137-145); TOTAL PROTEIN 5.7 g/dL (6.3-8.2)
[2017-04-10 06:52] LABS: ARTERIAL BLOOD BASE EXCESS -3.5 mmol/L; ARTERIAL BLOOD H2CO3 0.92 mmol/L (1.05-1.35); ARTERIAL BLOOD HCO3 19.8 mmol/L (20-26); ARTERIAL BLOOD O2 SATURATION 96.7 % (94-98); ARTERIAL BLOOD PCO2 30.4 mmHg (35-45); ARTERIAL BLOOD PH 7.43 (7.35-7.45); ARTERIAL BLOOD PO2 84.1 mmHg (80-100); ARTERIAL BLOOD TOTAL CO2 20.7 mmol/L (23-27)
[2017-04-10 07:09] LABS: INTERNATIONAL RATION (INR) 0.99; PROTHROMBIN TIME 13.8 SEC (11.4-15.4)
--- NOTE | 2017-04-10 07:24 | RADIOLOGY REPORT (SQ) ---
EXAM DESCRIPTION: CHEST SINGLE VIEW CLINICAL HISTORY: resp fail COMPARISON: 04/09/2017 FINDINGS: Single frontal view of the chest. Interval removal of endotracheal tube and NG tube. Atherosclerotic calcification aortic arch. Heart is not enlarged. Normal right infrahilar opacities are unchanged. No pneumothorax or large effusion. No displaced rib fractures identified. Upper abdominal soft tissues are unremarkable. IMPRESSION: 1. Interval removal of NG tube and endotracheal tube. Persistent right infrahilar airspace opacity
--- NOTE | 2017-04-10 07:55 | EKG REPORT ---
SEVERITY:- ABNORMAL ECG - SINUS RHYTHM BORDERLINE PROLONGED QT INTERVAL NONSPECIFIC ST-T CHANGES LATERAL LEADS : Confirmed by: Familia West MD 10-Apr-2017 07:55:00
[2017-04-10 07:56] LABS: ARTERIAL BLOOD FIO2 4L
--- NOTE | 2017-04-10 10:10 | PDOC PROGRESS REPORT ---
Subjective Progress Note for:: 04/10/17 Subjective:: Patient was extubated yesterday and has been doing well. Nursing states that they did not have problems overnight. Reason For Visit: ACUTE RESPIRATORY FAILURE WITH HYPOXIA AND Physical Exam Vital Signs: Temp Pulse Resp BP Pulse Ox 98.8 F 109 H 19 139/91 H 94 04/10/17 08:00 04/10/17 08:00 04/10/17 08:00 04/10/17 08:00 04/10/17 08:00 Intake & Output 04/09/17 04/10/17 04/11/17 06:59 06:59 06:59 Intake Total 2798 2246 Output Total 2670 2900 200 Balance 128 -654 -200 Weight 73 kg General appearance: PRESENT: no acute distress, well-developed, well-nourished Head exam: PRESENT: atraumatic, normocephalic Eye exam: PRESENT: conjunctiva pink, EOMI. ABSENT: scleral icterus Ear exam: PRESENT: normal external ear exam Mouth exam: PRESENT: moist, tongue midline Neck exam: ABSENT: carotid bruit, JVD, lymphadenopathy, thyromegaly Respiratory exam: PRESENT: other - diminished breath sounds at bases.. ABSENT: rales, rhonchi, wheezes Cardiovascular exam: PRESENT: RRR. ABSENT: diastolic murmur, rubs, systolic murmur Pulses: PRESENT: normal dorsalis pedis pul Vascular exam: PRESENT: normal capillary refill GI/Abdominal exam: PRESENT: normal bowel sounds, soft. ABSENT: distended, guarding, mass, organolmegaly, rebound, tenderness Rectal exam: PRESENT: deferred Extremities exam: PRESENT: full ROM. ABSENT: calf tenderness, clubbing, pedal edema Musculoskeletal exam: PRESENT: full ROM Neurological exam: PRESENT: alert, awake, oriented to person, oriented to place , oriented to time, oriented to situation, CN II-XII grossly intact. ABSENT: motor sensory deficit Psychiatric exam: PRESENT: appropriate affect, normal mood. ABSENT: homicidal ideation, suicidal ideation Skin exam: PRESENT: dry, intact, warm. ABSENT: cyanosis, rash Results Laboratory Results: 04/10/17 04:20 04/10/17 04:20 04/09/17 04/10/17 04/10/17 17:25 04:20 04:20 WBC Cancelled RBC Cancelled Hgb Cancelled Hct Cancelled MCV Cancelled MCH Cancelled MCHC Cancelled RDW Cancelled Plt Count Cancelled Seg Neutrophils % Cancelled Lymphocytes % Cancelled Monocytes % Cancelled Eosinophils % Cancelled Basophils % Cancelled Absolute Neutrophils Cancelled Absolute Lymphocytes Cancelled Absolute Monocytes Cancelled Absolute Eosinophils Cancelled Absolute Basophils Cancelled Carbonic Acid 0.96 L HCO3/H2CO3 Ratio 21:1 ABG pH 7.42 ABG pCO2 31.9 L ABG pO2 140.6 H ABG HCO3 20.3 ABG O2 Saturation 98.9 H ABG Base Excess -3.1 FiO2 30% Sodium 139.4 Potassium 4.3 Chloride 111 H Carbon Dioxide 21 L Anion Gap 7 BUN 17 Creatinine 0.53 Est GFR ( Amer) > 60 Est GFR (Non-Af Amer) > 60 Glucose 189 H Calcium 8.5 Magnesium 2.0 Total Bilirubin 0.6 AST 25 ALT 26 Alkaline Phosphatase 65 Total Protein 5.7 L Albumin 3.1 L 04/10/17 05:49 WBC RBC Hgb Hct MCV MCH MCHC RDW Plt Count Seg Neutrophils % Lymphocytes % Monocytes % Eosinophils % Basophils % Absolute Neutrophils Absolute Lymphocytes Absolute Monocytes Absolute Eosinophils Absolute Basophils Carbonic Acid 0.92 L HCO3/H2CO3 Ratio 21:1 ABG pH 7.43 ABG pCO2 30.4 L ABG pO2 84.1 ABG HCO3 19.8 L ABG O2 Saturation 96.7 ABG Base Excess -3.5 FiO2 4L Sodium Potassium Chloride Carbon Dioxide Anion Gap BUN Creatinine Est GFR ( Amer) Est GFR (Non-Af Amer) Glucose Calcium Magnesium Total Bilirubin AST ALT Alkaline Phosphatase Total Protein Albumin 04/07/17 16:01 Penis Gram Stain - Final 04/07/17 16:01 Penis Wound Culture - Final Vre (E.faecalis) Pseudomonas Aeruginosa Citrobacter Freundii C.albicans/C.dubliniensis 04/07/17 05:30 Tracheal Aspirate Gram Stain - Final 04/07/17 05:30 Tracheal Aspirate Sputum Culture - Final NORMAL GEORGETTE Impressions: Chest X-Ray 04/10/17 06:00 IMPRESSION: 1. Interval removal of NG tube and endotracheal tube. Persistent right infrahilar airspace opacity Assessment & Plan - Diagnosis (1) Acute respiratory failure with hypoxia and hypercapnia Is this a current diagnosis for this admission?: Yes Plan: Secondary to COPD Exacerbation and Nosocomial Pneumonia S/P Extubation: We will continue cefepime, Cubicin, and Levaquin. We will continue to monitor. Will transfer patient to [facility]. (2) COPD exacerbation Is this a current diagnosis for this admission?: Yes Plan: We will continue cefepime,cubicin, and Levaquin. Will schedule breathing treatments every 6 hours and change Solu-Medrol Q daily. (3) Type 2 diabetes mellitus Qualifiers: Diabetes mellitus complication status: with unspecified complications Diabetes mellitus continuous churn buttermaker insulin use: unspecified continuous churn buttermaker insulin use status Qualified Code(s): E11.8 - Type 2 diabetes mellitus with unspecified complications Is this a current diagnosis for this admission?: Yes Plan: Hemoglobin A1c of 7.3: We will continue sliding scale insulin regimen. (4) Alcohol abuse Is this a current diagnosis for this admission?: Yes Plan: Patient has been monitored for EtOH withdrawal. Of note patient is a retirement patient. (5) Chronic systolic CHF (congestive heart failure), NYHA class 3 Is this a current diagnosis for this admission?: Yes Plan: Patient appears euvolemic. Will discontinue IVF. (6) Hyponatremia Is this a current diagnosis for this admission?: Yes Plan: Resolved. (7) Pneumonia Qualifiers: Pneumonia type: due to unspecified organism Laterality: right Lung location: lower lobe of lung Qualified Code(s): J18.1 - Lobar pneumonia, unspecified organism Is this a current diagnosis for this admission?: Yes Plan: Will continue pt on Cefepime, cubicin, and Levaquin. (8) Sepsis Qualifiers: Sepsis type: sepsis due to unspecified organism Qualified Code(s): A41.9 - Sepsis, unspecified organism Is this a current diagnosis for this admission?: Yes Plan: Secondary to Pneumonia is characterized by tachycardia, low grade fever, tachypnea with hypotension, and depressed Pa02 FI02 ratio. Will continue Cefepime, cubicin, and Levaquin. (9) Hypomagnesemia Is this a current diagnosis for this admission?: Yes Plan: Resolved. (10) Ventricular tachycardia Is this a current diagnosis for this admission?: Yes Plan: in setting of Sepsis: Magnesium replaced. Cardiology consult placed. (11) VRE (vancomycin-resistant Enterococci) infection Is this a current diagnosis for this admission?: No Plan: Colonization: No treatment warranted currently. (12) DVT prophylaxis Is this a current diagnosis for this admission?: Yes Plan: SCDs - Time Time Spent with patient: 25-34 minutes - Will transfer to [facility]
[2017-04-10 10:35] LABS: ABSOLUTE LYMPHOCYTES (AUTO) 1.4 10^3/uL (0.5-4.7); ABSOLUTE MONOCYTES (AUTO) 1.2 10^3/uL (0.1-1.4); ABSOLUTE NEUT (AUTO) 10.8 10^3/uL (1.7-8.2); BASOPHILS % (AUTO) 0.3 % (0-2); HEMATOCRIT 35.8 % (37.9-51.0); LYMPHOCYTES % (AUTO) 10.5 % (13-45); MEAN CORPUSCULAR HEMOGLOBIN 31.7 pg (27.0-33.4); MEAN CORPUSCULAR HGB CONC 33.6 g/dL (32.0-36.0); MEAN CORPUSCULAR VOLUME 94 fl (80-97); MONOCYTES % (AUTO) 8.7 % (3-13); PLATELET COUNT 345 10^3/uL (150-450); RED CELL DISTRIBUTION WIDTH 15.8 % (11.5-14.0); SEGMENTED NEUTROPHILS % (AUTO) 80.5 % (42-78); TOTAL CELLS COUNTED % (AUTO) 100 %; WHITE BLOOD COUNT 13.4 10^3/uL (4.0-10.5)
[2017-04-10] MEDS ORDERED: METHYLPREDNISOLONE INJ 40 MG/1 ML SDV IV ONE (11:30)
[2017-04-10] MEDS: CARVEDILOL 3.125 MG TABLET NG SCH ×2 (11:33→21:17)
[2017-04-10] MEDS: FAMOTIDINE 20 MG TABLET PO SCH ×2 (11:34→21:17)
[2017-04-10] MEDS: LISINOPRIL 5 MG TABLET PO SCH (11:34)
[2017-04-10] MEDS: CEFEPIME HCL 2 GM in NORMAL SALINE 100 ML IV SCH ×2 (11:41→21:18)
[2017-04-10] MEDS ORDERED: IPRATROPIUM/ALBUTEROL 0.5-2.5 MG/3 ML AMPUL NEB ONE (12:00)
[2017-04-10] MEDS: DAPTOMYCIN 500 MG in NORMAL SALINE 50 ML IV SCH (12:45)
--- NOTE | 2017-04-10 20:07 | PDOC CONSULTATION ---
Consultation Consult Date: 04/10/17 Attending physician:: AG PARKER Consult reason:: Cardiomyopathy History of Present Illness Admission Date/PCP: 04/06/17 20:36 CONSTANCE NAIDU MD Patient complains of: Shortness of breath History of Present Illness: TAMMY RICHARDS is a 61 year old male patient of Dr Naidu brought the to ED via EMS service due to worsening difficulty with breathing and associated hypoxemia upon arrival of the EMS personnel. He was treated on site with IV Solu Medrol, IV Magnesium and bronchodilators and supported with CPAP enroute to the ED. He was initially treated with BiPAP support and bronchodilator with supplemental oxygen in the ED with some improvement but subsequent effort by patient using the rest room led to significant desaturation and despite adjustment of his BiPAP and supplemental oxygen he continue to demonstrate poor saturation with increase work of breathing necessitating intubation and ventilator support. His morbidities include COPD with prior intubation and recent discharge from this hospital, Diabetes Mellitus type 2, CHF, CAD with Old ID, GERD, and Depression. This history was reviewed and confirmed. Hospitalization course was reviewed. When I saw him he was already extubated and was responding appropriately to questions. Patient denied memory of what exactly happened saying that he had gone into coma. Patient known to me from previous hospitalization. Patient has known history of CHF, coronary artery disease and depressed LVEF. Patient on repeated questioning denied any chest pain. He denied any sustained palpitations. Patient claims that he was briefly unresponsive on his way to the hospital. Patient claims that he had coma Past Medical History Cardiac Medical History: Reports: Congestive Heart Failure, Myocardial Infarction Pulmonary Medical History: Reports: Chronic Obstructive Pulmonary Disease (COPD) Endocrine Medical History: Reports: Diabetes Mellitus Type 1, Diabetes Mellitus Type 2 - insulin dependent GI Medical History: Reports: Gastroesophageal Reflux Disease Psychiatric Medical History: Reports: Depression Traumatic Medical History: Denies: Traumatic Brain Injury Hematology: Denies: Sickle Cell Disease Past Surgical History Past Surgical History: Reports: Other - Patient denied any significant past surgical history. Social History Information Source: Patient Smoking Status: Unknown if Ever Smoked Frequency of Alcohol Use: Occasional Hx Recreational Drug Use: No - unable to obtain Drugs: Cocaine Hx Prescription Drug Abuse: No - Advance Directive Resuscitation Status: Full Code Family History Family History: Hypertension Parental Family History Reviewed: Yes Children Family History Reviewed: Yes Sibling(s) Family History Reviewed.: Yes Medication/Allergy Home Medications: Acetaminophen [Tylenol 325 mg Tablet] 650 mg PO Q4HP PRN 04/06/17 Aspirin [Ecotrin 81 mg EC Tablet] 81 mg PO DAILY 04/06/17 Atorvastatin Calcium [Lipitor 40 mg Tablet] 40 mg PO QHS 04/06/17 Finasteride [Proscar 5 mg Tablet] 5 mg PO DAILY 04/06/17 Gabapentin [Neurontin 300 mg Capsule] 300 mg PO Q8 04/06/17 Insulin Glargine,Hum.rec.anlog [Lantus Insulin 100 Unit/mL] 16 unit SUBCUT NOON 04/06/17 Lisinopril [Prinivil 2.5 mg Tablet] 2.5 mg PO DAILY 04/06/17 Metformin HCl [Glucophage 500 mg Tablet] 500 mg PO BIDACBS 04/06/17 Omeprazole 20 mg PO DAILY 04/06/17 Oxybutynin Chloride [Ditropan 5 mg Tablet] 5 mg PO DAILY 04/06/17 Sennosides/Docusate 8.6-50 mg [Senna Plus Tablet] 2 tab PO QHS 04/06/17 Spironolactone [Aldactone 25 mg Tablet] 25 mg PO DAILY 04/06/17 Tamsulosin HCl [Flomax 0.4 mg Cap.sr] 0.4 mg PO DAILY 04/06/17 Triamcinolone Acetonide [Aristocort 0.1% Ointment] 1 applic TP BID 04/06/17 Albuterol Sulfate [Proair HFA Inhalation Aerosol 8.5 gm MDI] 2 puff IH Q4HP PRN hfa.aer.ad 04/12/17 Budesonide/Formoterol Fumarate [Symbicort 160-4.5 Mcg Inhaler] 2 puff IH BID #1 hfa.aer.ad 04/12/17 Carvedilol [Coreg 6.25 mg Tablet] 6.25 mg PO Q12 tablet 04/12/17 Levofloxacin [Levaquin 750 mg Tablet] 750 mg PO DAILY #5 tab 04/12/17 Allergies/Adverse Reactions: walnut Allergy (Unknown, Verified 03/10/17 05:00) Review of Systems Review of Systems: Please see history of present illness and past medical history as wall. Constitutional: No fever or chills reported. Patient reports fatigue and tiredness. Head : No recent chronic headaches, recent head injury. Eyes: No recent eye pain, diplopia, redness, discharge, acute visual changes. Ears: No recent chronic ear pain, acute hearing loss, ear discharge. Oral cavity: No recent ulcerations, bleeding, oral cavity discomfort. Neck: No recent acute neck pain reported. Hematologic: No recent easy bruising or bleeding or hematologic malignancy reported. Lymphatic: No recent lymphatic malignancy, chronic lymphadenopathy reported yet Cardiovascular system review: See history of present illness. Respiratory system review: Patient describes history of recent cough with wheezing. Denies hemoptysis, blood clots in the lungs reported. Shortness of breath on exertion Gastrointestinal system review: Negative for any recent acute or chronic abdominal pain, hematemesis, melena, recent change in bowel habits. Genitourinary system review: No recent acute or chronic hematuria, flank pain, UTI etc. reported. Skin system review: Negative for any recent abnormal bruising, no rash, no pruritus reported. Neurologic: No prior history of strokes, mini strokes, seizure disorder. Psychologic: No history of major psychosis or major depression reported. Musculoskeletal: Minor aches and pains reported. No acute joint swelling reported. Endocrine: No recent polyuria, polydipsia, recent heat or cold intolerance. Physical Exam Vital Signs: Temp Pulse Resp BP Pulse Ox 96.8 F L 67 11 L 130/75 H 100 04/10/17 18:00 04/10/17 19:53 04/10/17 18:00 04/10/17 17:15 04/10/17 17:15 Intake & Output 04/09/17 04/10/17 04/11/17 06:59 06:59 06:59 Intake Total 2798 2246 297 Output Total 2670 2900 810 Balance 128 -654 -513 Weight 73 kg Exam: GENERAL: well-nourished and in mild respiratory distress. Alert and oriented x3 HEAD: Atraumatic, normocephalic. EYES: Pupils equal round and reactive to light, extraocular movements intact, sclera anicteric, conjunctiva are normal. ENT: TMs normal, nares patent, oropharynx clear without exudates. Moist mucous membranes. No oral ulcerations or bleeding gums noted NECK: supple without lymphadenopathy. Trachea is central. No cervical or axillary lymphadenopathy noted. Carotids are 2+, JVD WNL LUNGS: Respiration seems mildly labored. Bilateral scattered mild wheezes rales or rhonchi noted. No significant dullness noted on percussion. CHEST: Palpation of the chest wall shows no significant chest wall tenderness. No other significant abnormalities noted. HEART: [place] [employer], No PSH, 1/6 MALIK aortic area, 1/6 mayer systolic murmur mitral area, no rubs, no gallops. ABDOMEN: Soft, no significant tenderness appreciated, normoactive bowel sounds. No guarding, no rebound. No rigidity noted . No masses appreciated. EXTREMITIES: Pedal pulses are 1-2+, no calf tenderness noted. No clubbing or cyanosis.trace to 1+ pedal edema noted NEUROLOGICAL: Focused neurological exam showed no significant neurologic deficit. Normal speech, no focal weakness appreciated. PSYCH: Normal mood, normal affect. Judgment and insight within normal limits. SKIN: No significant ecchymosis, rash, ulcerations or signs of pruritus noted. MUSCULOSKELETAL EXAM: No significant joint swelling noted. Results Laboratory Results: 04/10/17 10:22 04/10/17 04:20 04/10/17 04/10/17 04/10/17 04:20 04:20 05:49 WBC Cancelled RBC Cancelled Hgb Cancelled Hct Cancelled MCV Cancelled MCH Cancelled MCHC Cancelled RDW Cancelled Plt Count Cancelled Seg Neutrophils % Cancelled Lymphocytes % Cancelled Monocytes % Cancelled Eosinophils % Cancelled Basophils % Cancelled Absolute Neutrophils Cancelled Absolute Lymphocytes Cancelled Absolute Monocytes Cancelled Absolute Eosinophils Cancelled Absolute Basophils Cancelled Carbonic Acid 0.92 L HCO3/H2CO3 Ratio 21:1 ABG pH 7.43 ABG pCO2 30.4 L ABG pO2 84.1 ABG HCO3 19.8 L ABG O2 Saturation 96.7 ABG Base Excess -3.5 FiO2 4L Sodium 139.4 Potassium 4.3 Chloride 111 H Carbon Dioxide 21 L Anion Gap 7 BUN 17 Creatinine 0.53 Est GFR ( Amer) > 60 Est GFR (Non-Af Amer) > 60 Glucose 189 H Calcium 8.5 Magnesium 2.0 Total Bilirubin 0.6 AST 25 ALT 26 Alkaline Phosphatase 65 Total Protein 5.7 L Albumin 3.1 L 04/10/17 10:22 WBC 13.4 H RBC 3.80 L Hgb 12.0 L Hct 35.8 L MCV 94 MCH 31.7 MCHC 33.6 RDW 15.8 H Plt Count 345 Seg Neutrophils % 80.5 H Lymphocytes % 10.5 L Monocytes % 8.7 Eosinophils % 0.0 Basophils % 0.3 Absolute Neutrophils 10.8 H Absolute Lymphocytes 1.4 Absolute Monocytes 1.2 Absolute Eosinophils 0.0 Absolute Basophils 0.0 Carbonic Acid HCO3/H2CO3 Ratio ABG pH ABG pCO2 ABG pO2 ABG HCO3 ABG O2 Saturation ABG Base Excess FiO2 Sodium Potassium Chloride Carbon Dioxide Anion Gap BUN Creatinine Est GFR ( Amer) Est GFR (Non-Af Amer) Glucose Calcium Magnesium Total Bilirubin AST ALT Alkaline Phosphatase Total Protein Albumin 04/07/17 16:01 Penis Gram Stain - Final 04/07/17 16:01 Penis Wound Culture - Final Vre (E.faecalis) Pseudomonas Aeruginosa Citrobacter Freundii C.albicans/C.dubliniensis EKG Comments: Sinus rhythm, no acute ST-T wave changes noted Impressions: Chest X-Ray 04/10/17 06:00 IMPRESSION: 1. Interval removal of NG tube and endotracheal tube. Persistent right infrahilar airspace opacity Assessment & Plan - Diagnosis (1) Acute respiratory failure with hypoxia and hypercapnia Is this a current diagnosis for this admission?: Yes (2) COPD exacerbation Is this a current diagnosis for this admission?: Yes (3) Coronary artery disease Qualifiers: Coronary Disease-Associated Artery/Lesion type: [place] artery [place] vs. transplanted heart: [place] heart Associated angina: angina presence unspecified Qualified Code(s): I25.10 - Atherosclerotic heart disease of [place] coronary artery without angina pectoris Is this a current diagnosis for this admission?: Yes (4) Diabetes mellitus type 2 in nonobese Is this a current diagnosis for this admission?: Yes - Notes Notes: It seems patient presented this time with severe respiratory distress with severe hypoxemia and hypercarbia. Patient has known history of severe COPD. Patient does have known history of coronary artery disease and LV systolic dysfunction. EKG on admission showed sinus tachycardia without any significant ST-T wave changes. Currently EKG shows sinus rhythm without any acute ST-T wave changes. However at this time presentation is predominantly from pulmonary issues. Patient also has somewhat noncompliance with medications and at this dietary restriction. At this point recommend continuing aggressive risk factor modification and maximization of his medical management for both coronary artery disease, CHF, cardiomyopathy as well as COPD. May consider ruling out pulmonary embolism in view of recent multiple hospitalization. Continue with DVT prophylaxis in the mean time. We will continue to follow patient. Patient has numerous significant comorbid diagnosis. - Time Time Spent: 30 to 50 Minutes - CODE STATUS was discussed, patient remains full code. Surrogate decision-maker unchanged. Multiple medical problems were addressed. More than 50% of the time spent coordinating care, discussing management plans with involved caregivers. Management plans discussed with involved personnels. Medical decision making was of moderate to high complexity , patient's has multiple comorbidities. Medications reviewed and adjusted accordingly: Yes
[2017-04-10] MEDS: IPRATROPIUM/ALBUTEROL 0.5-2.5 MG/3 ML AMPUL NEB SCH (20:14)
[2017-04-10] MEDS: LEVOFLOXACIN 500 MG/D5W RTU 500 MG/100 ML RTUPB IV SCH (21:18)
[2017-04-11] MEDS: IPRATROPIUM BROMIDE HFA 17 MCG/PUFF 200 PUFF/12.9 GM MDI IH SCH ×6 (02:00→22:52)
[2017-04-11 04:25] LABS: ABSOLUTE LYMPHOCYTES (AUTO) 1.7 10^3/uL (0.5-4.7); ABSOLUTE MONOCYTES (AUTO) 1.1 10^3/uL (0.1-1.4); ABSOLUTE NEUT (AUTO) 8.5 10^3/uL (1.7-8.2); BASOPHILS % (AUTO) 0.3 % (0-2); EOSINOPHILS % (AUTO) 0.1 % (0-6); HEMATOCRIT 34.8 % (37.9-51.0); HEMOGLOBIN 11.6 g/dL (13.5-17.0); MEAN CORPUSCULAR HEMOGLOBIN 31.4 pg (27.0-33.4); MEAN CORPUSCULAR HGB CONC 33.3 g/dL (32.0-36.0); MEAN CORPUSCULAR VOLUME 94 fl (80-97); MONOCYTES % (AUTO) 10.1 % (3-13); PLATELET COUNT 301 10^3/uL (150-450); RED BLOOD COUNT 3.69 10^6/uL (4.35-5.55); RED CELL DISTRIBUTION WIDTH 15.5 % (11.5-14.0); SEGMENTED NEUTROPHILS % (AUTO) 74.5 % (42-78); TOTAL CELLS COUNTED % (AUTO) 100 %; WHITE BLOOD COUNT 11.4 10^3/uL (4.0-10.5)
[2017-04-11 04:43] LABS: ALANINE AMINOTRANSFERASE 27 U/L (21-72); ALBUMIN 2.8 g/dL (3.5-5.0); ALKALINE PHOSPHATASE 55 U/L (38-126); ANION GAP 5 (5-19); ASPARTATE AMINO TRANSFERASE 16 U/L (17-59); BILIRUBIN,DIRECT 0.4 mg/dL (0.0-0.4); BILIRUBIN,TOTAL 0.4 mg/dL (0.2-1.3); BLOOD UREA NITROGEN 22 mg/dL (7-20); CALCIUM 8.8 mg/dL (8.4-10.2); CARBON DIOXIDE 24 mmol/L (22-30); CHLORIDE 110 mmol/L (98-107); GLUCOSE 189 mg/dL (75-110); SODIUM 138.7 mmol/L (137-145); TOTAL PROTEIN 5.1 g/dL (6.3-8.2)
--- NOTE | 2017-04-11 08:33 | PDOC PROGRESS REPORT ---
Subjective Progress Note for:: 04/11/17 Subjective:: Pt states that he is feeling better. Pt states that he would like to go home. Reason For Visit: ACUTE RESPIRATORY FAILURE WITH HYPOXIA AND Physical Exam Vital Signs: Temp Pulse Resp BP Pulse Ox 98.6 F 82 16 122/76 100 04/11/17 08:00 04/11/17 08:00 04/11/17 08:00 04/11/17 08:00 04/11/17 08:00 Intake & Output 04/10/17 04/11/17 04/12/17 06:59 06:59 06:59 Intake Total 2246 447 Output Total 2900 1485 250 Balance -654 -1038 -250 Weight 73 kg 72.9 kg General appearance: PRESENT: no acute distress, well-developed, well-nourished Head exam: PRESENT: atraumatic, normocephalic Eye exam: PRESENT: conjunctiva pink, EOMI. ABSENT: scleral icterus Ear exam: PRESENT: normal external ear exam Mouth exam: PRESENT: moist, tongue midline Neck exam: ABSENT: carotid bruit, JVD, lymphadenopathy, thyromegaly Respiratory exam: PRESENT: clear to auscultation vangie. ABSENT: rales, rhonchi, wheezes Cardiovascular exam: PRESENT: RRR. ABSENT: diastolic murmur, rubs, systolic murmur Pulses: PRESENT: normal dorsalis pedis pul Vascular exam: PRESENT: normal capillary refill GI/Abdominal exam: PRESENT: normal bowel sounds, soft. ABSENT: distended, guarding, mass, organolmegaly, rebound, tenderness Rectal exam: PRESENT: deferred Extremities exam: PRESENT: full ROM. ABSENT: calf tenderness, clubbing, pedal edema Neurological exam: PRESENT: alert, awake, oriented to person, oriented to place , oriented to time, oriented to situation, CN II-XII grossly intact. ABSENT: motor sensory deficit Psychiatric exam: PRESENT: appropriate affect, normal mood. ABSENT: homicidal ideation, suicidal ideation Skin exam: PRESENT: dry, intact, warm. ABSENT: cyanosis, rash Results Laboratory Results: 04/11/17 04:17 04/11/17 04:17 04/10/17 04/10/17 04/11/17 04:20 10:22 04:17 WBC Cancelled 13.4 H 11.4 H RBC Cancelled 3.80 L 3.69 L Hgb Cancelled 12.0 L 11.6 L Hct Cancelled 35.8 L 34.8 L MCV Cancelled 94 94 MCH Cancelled 31.7 31.4 MCHC Cancelled 33.6 33.3 RDW Cancelled 15.8 H 15.5 H Plt Count Cancelled 345 301 Seg Neutrophils % Cancelled 80.5 H 74.5 Lymphocytes % Cancelled 10.5 L 15.0 Monocytes % Cancelled 8.7 10.1 Eosinophils % Cancelled 0.0 0.1 Basophils % Cancelled 0.3 0.3 Absolute Neutrophils Cancelled 10.8 H 8.5 H Absolute Lymphocytes Cancelled 1.4 1.7 Absolute Monocytes Cancelled 1.2 1.1 Absolute Eosinophils Cancelled 0.0 0.0 Absolute Basophils Cancelled 0.0 0.0 Sodium Potassium Chloride Carbon Dioxide Anion Gap BUN Creatinine Est GFR ( Amer) Est GFR (Non-Af Amer) Glucose Calcium Magnesium Total Bilirubin AST ALT Alkaline Phosphatase Total Protein Albumin 04/11/17 04:17 WBC RBC Hgb Hct MCV MCH MCHC RDW Plt Count Seg Neutrophils % Lymphocytes % Monocytes % Eosinophils % Basophils % Absolute Neutrophils Absolute Lymphocytes Absolute Monocytes Absolute Eosinophils Absolute Basophils Sodium 138.7 Potassium 5.0 Chloride 110 H Carbon Dioxide 24 Anion Gap 5 BUN 22 H Creatinine 0.68 Est GFR ( Amer) > 60 Est GFR (Non-Af Amer) > 60 Glucose 189 H Calcium 8.8 Magnesium 1.8 Total Bilirubin 0.4 AST 16 L ALT 27 Alkaline Phosphatase 55 Total Protein 5.1 L Albumin 2.8 L 04/07/17 16:01 Penis Gram Stain - Final 04/07/17 16:01 Penis Wound Culture - Final Vre (E.faecalis) Pseudomonas Aeruginosa Citrobacter Freundii C.albicans/C.dubliniensis Impressions: Chest X-Ray 04/10/17 06:00 IMPRESSION: 1. Interval removal of NG tube and endotracheal tube. Persistent right infrahilar airspace opacity Assessment & Plan - Diagnosis (1) Acute respiratory failure with hypoxia and hypercapnia Is this a current diagnosis for this admission?: Yes Plan: Secondary to COPD Exacerbation and Nosocomial Pneumonia S/P Extubation: Will discontinue Daptomycin and Cefepime. Will continue Levaquin. (2) COPD exacerbation Is this a current diagnosis for this admission?: Yes Plan: Will continue Levaquin. Will continue steroids. (3) Type 2 diabetes mellitus Qualifiers: Diabetes mellitus complication status: with unspecified complications Diabetes mellitus snf insulin use: unspecified intermediate manager insulin use status Qualified Code(s): E11.8 - Type 2 diabetes mellitus with unspecified complications Is this a current diagnosis for this admission?: Yes Plan: Hemoglobin A1c of 7.3: We will continue sliding scale insulin regimen. (4) Alcohol abuse Is this a current diagnosis for this admission?: Yes Plan: Patient has been monitored for EtOH withdrawal. Of note patient is a penitentiary patient. (5) Chronic systolic CHF (congestive heart failure), NYHA class 3 Is this a current diagnosis for this admission?: Yes Plan: Patient appears euvolemic. Will discontinue IVF. (6) Hyponatremia Is this a current diagnosis for this admission?: Yes Plan: Resolved. (7) Pneumonia Qualifiers: Pneumonia type: due to unspecified organism Laterality: right Lung location: lower lobe of lung Qualified Code(s): J18.1 - Lobar pneumonia, unspecified organism Is this a current diagnosis for this admission?: Yes Plan: Will continue pt on Levaquin. Will discontinue Dapatomycin and Cefepime. (8) Sepsis Qualifiers: Sepsis type: sepsis due to unspecified organism Qualified Code(s): A41.9 - Sepsis, unspecified organism Is this a current diagnosis for this admission?: Yes Plan: Secondary to Pneumonia is characterized by tachycardia, low grade fever, tachypnea with hypotension, and depressed Pa02 FI02 ratio. Will continue Levaquin. Will discontinue Cefepime and Daptomycin. (9) Hypomagnesemia Is this a current diagnosis for this admission?: Yes Plan: Resolved. (10) Ventricular tachycardia Is this a current diagnosis for this admission?: Yes Plan: in setting of Sepsis: Magnesium replaced. Cardiology consult placed. (11) VRE (vancomycin-resistant Enterococci) infection Is this a current diagnosis for this admission?: No Plan: Colonization: No treatment warranted currently. (12) DVT prophylaxis Is this a current diagnosis for this admission?: Yes Plan: SCDs - Time Time Spent with patient: 15-24 minutes
[2017-04-11] MEDS: IPRATROPIUM/ALBUTEROL 0.5-2.5 MG/3 ML AMPUL NEB SCH ×3 (08:36→19:58)
[2017-04-11] MEDS: CARVEDILOL 3.125 MG TABLET NG SCH (09:19)
[2017-04-11] MEDS: FAMOTIDINE 20 MG TABLET PO SCH ×2 (09:20→22:52)
[2017-04-11] MEDS: LISINOPRIL 5 MG TABLET PO SCH (09:20)
[2017-04-11] MEDS: METHYLPREDNISOLONE INJ 40 MG/1 ML SDV IV SCH (10:18)
[2017-04-11] MEDS: INSULIN LISPRO 100 UNIT/ML 3 ML VIAL SUBCUT PRN ×2 (16:53→22:52)
--- NOTE | 2017-04-11 19:29 | PDOC PROGRESS REPORT ---
Subjective Progress Note for:: 04/11/17 Subjective:: Patient seen on morning rounds while still in the unit. He is supposed to be moved out. Patient seems to be doing better with gradual improvement. Pt is denying any chest arm or neck discomfort. Patient denying any PND, orthopnea. Patient denied any sustained palpitations, dizziness, syncope, near syncope. Patient denying any fever chills. Patient denying any other significant discomfort. Patient is maintaining sinus rhythm. Review of systems: Rest review of systems negative. Medications: Medications have been reviewed. Reason For Visit: ACUTE RESPIRATORY FAILURE WITH HYPOXIA AND Physical Exam Vital Signs: Temp Pulse Resp BP Pulse Ox 98.4 F 74 15 128/79 H 100 04/11/17 14:00 04/11/17 13:50 04/11/17 14:00 04/11/17 13:15 04/11/17 14:00 Intake & Output 04/10/17 04/11/17 04/12/17 06:59 06:59 06:59 Intake Total 2246 447 210 Output Total 2900 1485 620 Balance -654 -1038 -410 Weight 73 kg 72.9 kg Exam: GENERAL: well-nourished and in no acute distress. Alert and oriented x3 HEAD: Atraumatic, normocephalic. EYES: Pupils equal round and reactive to light, extraocular movements intact, sclera anicteric, conjunctiva are normal. ENT: TMs normal, nares patent, oropharynx clear without exudates. Moist mucous membranes. No oral ulcerations or bleeding gums noted NECK: supple without lymphadenopathy. Trachea is central. No cervical or axillary lymphadenopathy noted. Carotids are 2+, JVD WNL LUNGS: Respiration seems nonlabored, no significant accessory muscle action noted. Breath sounds clear to auscultation bilaterally and equal noted. No wheezes rales or rhonchi noted. No significant dullness noted on percussion. CHEST: Palpation of the chest wall shows no significant chest wall tenderness. No other significant abnormalities noted. HEART: [place] [employer], No PSH, 1/6 MALIK aortic area, 1/6 mayer systolic murmur mitral area, no rubs, no gallops. ABDOMEN: Soft, no significant tenderness appreciated, normoactive bowel sounds. No guarding, no rebound. No rigidity noted . No masses appreciated. EXTREMITIES: Pedal pulses are 1-2+, no calf tenderness noted. No clubbing or cyanosis.trace to 1+ pedal edema noted NEUROLOGICAL: Focused neurological exam showed no significant neurologic deficit. Normal speech, no focal weakness appreciated. PSYCH: Normal mood, normal affect. Judgment and insight within normal limits. SKIN: No significant ecchymosis, rash, ulcerations or signs of pruritus noted. MUSCULOSKELETAL EXAM: No significant joint swelling noted. Results Laboratory Results: 04/11/17 04:17 04/11/17 04:17 04/11/17 04/11/17 04:17 04:17 WBC 11.4 H RBC 3.69 L Hgb 11.6 L Hct 34.8 L MCV 94 MCH 31.4 MCHC 33.3 RDW 15.5 H Plt Count 301 Seg Neutrophils % 74.5 Lymphocytes % 15.0 Monocytes % 10.1 Eosinophils % 0.1 Basophils % 0.3 Absolute Neutrophils 8.5 H Absolute Lymphocytes 1.7 Absolute Monocytes 1.1 Absolute Eosinophils 0.0 Absolute Basophils 0.0 Sodium 138.7 Potassium 5.0 Chloride 110 H Carbon Dioxide 24 Anion Gap 5 BUN 22 H Creatinine 0.68 Est GFR ( Amer) > 60 Est GFR (Non-Af Amer) > 60 Glucose 189 H Calcium 8.8 Magnesium 1.8 Total Bilirubin 0.4 AST 16 L ALT 27 Alkaline Phosphatase 55 Total Protein 5.1 L Albumin 2.8 L 04/07/17 17:48 Urethra Chlamydia Culture - Final EKG Comments: Telemetry shows sinus rhythm without any sustained tacky or bradycardia arrhythmias. Impressions: Chest X-Ray 04/10/17 06:00 IMPRESSION: 1. Interval removal of NG tube and endotracheal tube. Persistent right infrahilar airspace opacity Assessment & Plan - Diagnosis (1) Acute respiratory failure with hypoxia and hypercapnia Is this a current diagnosis for this admission?: Yes (2) COPD exacerbation Is this a current diagnosis for this admission?: Yes (3) Coronary artery disease Qualifiers: Coronary Disease-Associated Artery/Lesion type: [place] artery [place] vs. transplanted heart: [place] heart Associated angina: angina presence unspecified Qualified Code(s): I25.10 - Atherosclerotic heart disease of [place] coronary artery without angina pectoris Is this a current diagnosis for this admission?: Yes (4) Diabetes mellitus type 2 in nonobese Is this a current diagnosis for this admission?: Yes - Notes Notes: Acute respiratory failure with hypoxemia and hypercapnia: Most likely related to respiratory failure from severe COPD. COPD exacerbation: Continue current therapy. Pulmonary following. Coronary artery disease: Patient currently stable without any angina or angina equivalent symptoms. Continue home medications. Diabetes: Currently stable. Continue good control of diabetes but avoid hyper or hypoglycemia. - Time Time with patient: 15-25 minutes - CODE STATUS was discussed, patient remains full code. Surrogate decision-maker unchanged. Multiple medical problems were addressed. More than 50% of the time spent coordinating care, discussing management plans with involved caregivers. Management plans discussed with involved personnels. Medical decision making was of moderate to high complexity , patient's has multiple comorbidities. Medications reviewed and adjusted accordingly: Yes
[2017-04-11] MEDS: LEVOFLOXACIN 500 MG/D5W RTU 500 MG/100 ML RTUPB IV SCH (22:52)
[2017-04-11] MEDS: CARVEDILOL 6.25 MG TABLET PO SCH (22:52)
[2017-04-12] MEDS: IPRATROPIUM BROMIDE HFA 17 MCG/PUFF 200 PUFF/12.9 GM MDI IH SCH ×3 (04:24→09:49)
[2017-04-12 05:46] LABS: ARTERIAL BLOOD BASE EXCESS -1.2 mmol/L; ARTERIAL BLOOD H2CO3 1.07 mmol/L (1.05-1.35); ARTERIAL BLOOD HCO3 22.8 mmol/L (20-26); ARTERIAL BLOOD O2 SATURATION 74.9 % (94-98); ARTERIAL BLOOD PCO2 35.6 mmHg (35-45); ARTERIAL BLOOD PH 7.42 (7.35-7.45); ARTERIAL BLOOD TOTAL CO2 23.9 mmol/L (23-27)
[2017-04-12 05:54] LABS: ARTERIAL BLOOD FIO2 ROOM AIR
[2017-04-12 05:55] LABS: ARTERIAL BLOOD PO2 38.7 mmHg (80-100)
[2017-04-12 06:18] LABS: ABSOLUTE LYMPHOCYTES (AUTO) 2.4 10^3/uL (0.5-4.7); ABSOLUTE MONOCYTES (AUTO) 1.3 10^3/uL (0.1-1.4); ABSOLUTE NEUT (AUTO) 9.1 10^3/uL (1.7-8.2); BASOPHILS % (AUTO) 0.2 % (0-2); EOSINOPHILS % (AUTO) 0.1 % (0-6); HEMATOCRIT 34.6 % (37.9-51.0); HEMOGLOBIN 11.6 g/dL (13.5-17.0); LYMPHOCYTES % (AUTO) 18.8 % (13-45); MEAN CORPUSCULAR HEMOGLOBIN 31.4 pg (27.0-33.4); MEAN CORPUSCULAR HGB CONC 33.5 g/dL (32.0-36.0); MEAN CORPUSCULAR VOLUME 94 fl (80-97); MONOCYTES % (AUTO) 10.2 % (3-13); PLATELET COUNT 234 10^3/uL (150-450); RED CELL DISTRIBUTION WIDTH 15.2 % (11.5-14.0); SEGMENTED NEUTROPHILS % (AUTO) 70.7 % (42-78); TOTAL CELLS COUNTED % (AUTO) 100 %; WHITE BLOOD COUNT 12.9 10^3/uL (4.0-10.5)
[2017-04-12 06:29] LABS: ALANINE AMINOTRANSFERASE 56 U/L (21-72); ALBUMIN 3.2 g/dL (3.5-5.0); ALKALINE PHOSPHATASE 69 U/L (38-126); ANION GAP 8 (5-19); ASPARTATE AMINO TRANSFERASE 32 U/L (17-59); BILIRUBIN,DIRECT 0.1 mg/dL (0.0-0.4); BILIRUBIN,TOTAL 0.3 mg/dL (0.2-1.3); BLOOD UREA NITROGEN 20 mg/dL (7-20); CALCIUM 8.8 mg/dL (8.4-10.2); CARBON DIOXIDE 24 mmol/L (22-30); CHLORIDE 104 mmol/L (98-107); GLUCOSE 105 mg/dL (75-110); POTASSIUM 4.2 mmol/L (3.6-5.0); SODIUM 136.4 mmol/L (137-145); TOTAL PROTEIN 5.4 g/dL (6.3-8.2)
[2017-04-12] MEDS: IPRATROPIUM/ALBUTEROL 0.5-2.5 MG/3 ML AMPUL NEB SCH ×2 (08:13→14:07)
[2017-04-12] MEDS: LISINOPRIL 5 MG TABLET PO SCH (09:48)
[2017-04-12] MEDS: FAMOTIDINE 20 MG TABLET PO SCH (09:49)
[2017-04-12] MEDS: CARVEDILOL 6.25 MG TABLET PO SCH (09:49)
[2017-04-12] MEDS: METHYLPREDNISOLONE INJ 40 MG/1 ML SDV IV SCH (09:49)
--- NOTE | 2017-04-12 11:19 | PDOC DISCHARGE SUMMARY ---
General - Admit/Disc Date/PCP Admission Date/Primary Care Provider: 04/06/17 20:36 CONSTANCE NAIDU MD Discharge Date: 04/12/17 - Discharge Diagnosis (1) Acute respiratory failure with hypoxia and hypercapnia Is this a current diagnosis for this admission?: Yes Summary: Patient was admitted to the hospital for COPD exacerbation however patient's respiratory function continued to decline. Patient subsequently was intubated and then diagnosed with nosocomial acquired pneumonia. Patient was placed on broad-spectrum antibiotics and as patient demonstrated improvement antibiotics were tapered to Levaquin. Patient will complete 5 days of Levaquin at facility. (2) COPD exacerbation Is this a current diagnosis for this admission?: Yes Summary: Patient was placed on steroids however patient currently not requiring steroids therefore patient will not be sent home on oral steroids at time of discharge. (3) Type 2 diabetes mellitus Is this a current diagnosis for this admission?: Yes Summary: Home regimen (4) Alcohol abuse Is this a current diagnosis for this admission?: Yes Summary: No issues during admission (5) Chronic systolic CHF (congestive heart failure), NYHA class 3 Is this a current diagnosis for this admission?: Yes Summary: Stable (6) Hyponatremia Is this a current diagnosis for this admission?: Yes Summary: stable (7) Pneumonia Is this a current diagnosis for this admission?: Yes Summary: Pt will complete 5 days of Levaquin. (8) Sepsis Is this a current diagnosis for this admission?: Yes Summary: Secondary to nosocomial acquired pneumonia: Pt placed on Levaquin 500mg PO Qdaily. (9) Hypomagnesemia Is this a current diagnosis for this admission?: Yes Summary: Resolved with replacement (10) Ventricular tachycardia Is this a current diagnosis for this admission?: Yes Summary: In setting of low magnesium: Patient had no further episodes (11) VRE (vancomycin-resistant Enterococci) infection Is this a current diagnosis for this admission?: No Summary: Colonization no treatment required - Additional Information Resuscitation Status: Full Code Discharge Diet: Cardiac, Diabetic Discharge Activity: Activity As Tolerated Prescriptions: Budesonide/Formoterol Fumarate [Symbicort 160-4.5 Mcg Inhaler] 2 puff IH BID #1 hfa.aer.ad Levofloxacin [Levaquin 750 mg Tablet] 750 mg PO DAILY #5 tab Home Medications: Acetaminophen [Tylenol 325 mg Tablet] 650 mg PO Q4HP PRN 02/17/18 Aspirin [Ecotrin 81 mg EC Tablet] 81 mg PO DAILY 04/06/17 Atorvastatin Calcium [Lipitor 40 mg Tablet] 40 mg PO QHS 04/06/17 Finasteride [Proscar 5 mg Tablet] 5 mg PO DAILY 04/06/17 Gabapentin [Neurontin 300 mg Capsule] 300 mg PO Q8 04/06/17 Insulin Glargine,Hum.rec.anlog [Lantus Insulin 100 Unit/mL] 16 unit SUBCUT NOON 04/06/17 Lisinopril [Prinivil 2.5 mg Tablet] 2.5 mg PO DAILY 04/06/17 Metformin HCl [Glucophage 500 mg Tablet] 500 mg PO BIDACBS 04/06/17 Omeprazole 20 mg PO DAILY 04/06/17 Oxybutynin Chloride [Ditropan 5 mg Tablet] 5 mg PO DAILY 04/06/17 Sennosides/Docusate 8.6-50 mg [Senna Plus Tablet] 2 tab PO QHS 04/06/17 Spironolactone [Aldactone 25 mg Tablet] 25 mg PO DAILY 04/06/17 Tamsulosin HCl [Flomax 0.4 mg Cap.sr] 0.4 mg PO DAILY 04/06/17 Triamcinolone Acetonide [Aristocort 0.1% Ointment] 1 applic TP BID 04/06/17 Albuterol Sulfate [Proair HFA Inhalation Aerosol 8.5 gm MDI] 2 puff IH Q4HP PRN hfa.aer.ad 04/12/17 Budesonide/Formoterol Fumarate [Symbicort 160-4.5 Mcg Inhaler] 2 puff IH BID #1 hfa.aer.ad 04/12/17 Carvedilol [Coreg 6.25 mg Tablet] 6.25 mg PO Q12 tablet 04/12/17 Levofloxacin [Levaquin 750 mg Tablet] 750 mg PO DAILY #5 tab 04/12/17 History of Present Illness Patient complains of: Difficulty breathing History of Present Illness: TAMMY RICHARDS is a 61 year old male is in the hospital with complaint of difficulty breathing. Patient was placed on BiPAP however respiratory function continued to worsen and therefore patient required intubation. Patient was treated for COPD exacerbation and nosocomial acquired pneumonia. Hospital Course Hospital Course: Patient is a 61-year-old gentleman that was admitted to our facility due to difficulty breathing. Patient was started on steroids breathing treatments and antibiotics however respiratory function continued to worsen. Patient was intubated during hospital stay due to respiratory failure. Patient was diagnosed with COPD exacerbation and nosocomial acquired pneumonia. Patient was placed on broad-spectrum antibiotics and as patient's condition improved antibiotics were tapered to only Levaquin. Patient was noted to have electrolyte abnormalities however those were corrected. Patient has done well and has been ambulating in room and appears in no acute distress. Physical Exam Vital Signs: Temp Pulse Resp BP Pulse Ox 97.4 F 68 15 121/64 100 04/12/17 08:00 04/12/17 08:13 04/12/17 08:13 04/12/17 08:00 04/12/17 08:00 Intake & Output 04/11/17 04/12/17 04/13/17 06:59 06:59 06:59 Intake Total 447 894 Output Total 1485 620 Balance -1038 274 Weight 72.9 kg 73.4 kg General appearance: PRESENT: no acute distress, well-developed, well-nourished Head exam: PRESENT: atraumatic, normocephalic Eye exam: PRESENT: conjunctiva pink, EOMI. ABSENT: scleral icterus Ear exam: PRESENT: normal external ear exam Mouth exam: PRESENT: moist, tongue midline Neck exam: ABSENT: carotid bruit, JVD, lymphadenopathy, thyromegaly Respiratory exam: PRESENT: clear to auscultation vangie. ABSENT: rales, rhonchi, wheezes Cardiovascular exam: PRESENT: RRR. ABSENT: diastolic murmur, rubs, systolic murmur Pulses: PRESENT: normal dorsalis pedis pul Vascular exam: PRESENT: normal capillary refill GI/Abdominal exam: PRESENT: normal bowel sounds, soft. ABSENT: distended, guarding, mass, organolmegaly, rebound, tenderness Rectal exam: PRESENT: deferred Extremities exam: PRESENT: full ROM. ABSENT: calf tenderness, clubbing, pedal edema Neurological exam: PRESENT: alert, awake, oriented to person, oriented to place , oriented to time, oriented to situation, CN II-XII grossly intact. ABSENT: motor sensory deficit Psychiatric exam: PRESENT: appropriate affect, normal mood. ABSENT: homicidal ideation, suicidal ideation Skin exam: PRESENT: dry, intact, warm. ABSENT: cyanosis, rash Results Laboratory Results: 04/12/17 05:19 04/12/17 05:19 04/12/17 04/12/17 04/12/17 05:19 05:19 05:25 WBC 12.9 H RBC 3.70 L Hgb 11.6 L Hct 34.6 L MCV 94 MCH 31.4 MCHC 33.5 RDW 15.2 H Plt Count 234 Seg Neutrophils % 70.7 Lymphocytes % 18.8 Monocytes % 10.2 Eosinophils % 0.1 Basophils % 0.2 Absolute Neutrophils 9.1 H Absolute Lymphocytes 2.4 Absolute Monocytes 1.3 Absolute Eosinophils 0.0 Absolute Basophils 0.0 Carbonic Acid 1.07 HCO3/H2CO3 Ratio 21:1 ABG pH 7.42 ABG pCO2 35.6 ABG pO2 38.7 L* ABG HCO3 22.8 ABG O2 Saturation 74.9 L ABG Base Excess -1.2 FiO2 ROOM AIR Sodium 136.4 L Potassium 4.2 Chloride 104 Carbon Dioxide 24 Anion Gap 8 BUN 20 Creatinine 0.58 Est GFR ( Amer) > 60 Est GFR (Non-Af Amer) > 60 Glucose 105 Calcium 8.8 Magnesium 1.8 Total Bilirubin 0.3 AST 32 ALT 56 Alkaline Phosphatase 69 Total Protein 5.4 L Albumin 3.2 L 04/07/17 17:48 Urethra Chlamydia Culture - Final Impressions: Chest X-Ray 04/10/17 06:00 IMPRESSION: 1. Interval removal of NG tube and endotracheal tube. Persistent right infrahilar airspace opacity Qualifiers - * PATEINT BEING DISCHARGED WITH ANY OF THE FOLLOWING DIAGNOSIS?: No Plan Time Spent: Greater than 30 Minutes
[2017-04-12 14:02] VITALS: BP 120/79
--- NOTE | 2017-04-12 14:09 | PDOC PROGRESS REPORT ---
Subjective Progress Note for:: 04/10/17 Subjective:: intubated Reason For Visit: ACUTE RESPIRATORY FAILURE WITH HYPOXIA AND Physical Exam Vital Signs: Temp Pulse Resp BP Pulse Ox 97.5 F 69 12 120/79 100 04/12/17 12:00 04/12/17 12:00 04/12/17 12:00 04/12/17 12:00 04/12/17 12:00 Intake & Output 04/11/17 04/12/17 04/13/17 06:59 06:59 06:59 Intake Total 447 894 Output Total 1485 620 Balance -1038 274 Weight 72.9 kg 73.4 kg General appearance: PRESENT: no acute distress, disheveled, well-developed Head exam: PRESENT: atraumatic, normocephalic Eye exam: PRESENT: conjunctiva pale. ABSENT: nystagmus, periorbital swelling, scleral icterus Mouth exam: PRESENT: moist, neck supple, tongue midline Neck exam: ABSENT: carotid bruit, JVD, lymphadenopathy, thyromegaly, tracheal deviation Respiratory exam: PRESENT: decreased breath sounds, prolonged expiratory phas, rhonchi, symmetrical, unlabored, wheezes. ABSENT: retraction, stridor, tachypnea Cardiovascular exam: PRESENT: RRR, +S1, +S2 Pulses: PRESENT: normal radial pulses GI/Abdominal exam: PRESENT: diminished bowel sounds, soft Extremities exam: ABSENT: calf tenderness, clubbing, joint swelling Musculoskeletal exam: ABSENT: deformity, dislocation Neurological exam: PRESENT: awake Psychiatric exam: PRESENT: flat affect Skin exam: PRESENT: dry, warm Results Laboratory Results: 04/12/17 05:19 04/12/17 05:19 04/12/17 04/12/17 04/12/17 05:19 05:19 05:25 WBC 12.9 H RBC 3.70 L Hgb 11.6 L Hct 34.6 L MCV 94 MCH 31.4 MCHC 33.5 RDW 15.2 H Plt Count 234 Seg Neutrophils % 70.7 Lymphocytes % 18.8 Monocytes % 10.2 Eosinophils % 0.1 Basophils % 0.2 Absolute Neutrophils 9.1 H Absolute Lymphocytes 2.4 Absolute Monocytes 1.3 Absolute Eosinophils 0.0 Absolute Basophils 0.0 Carbonic Acid 1.07 HCO3/H2CO3 Ratio 21:1 ABG pH 7.42 ABG pCO2 35.6 ABG pO2 38.7 L* ABG HCO3 22.8 ABG O2 Saturation 74.9 L ABG Base Excess -1.2 FiO2 ROOM AIR Sodium 136.4 L Potassium 4.2 Chloride 104 Carbon Dioxide 24 Anion Gap 8 BUN 20 Creatinine 0.58 Est GFR ( Amer) > 60 Est GFR (Non-Af Amer) > 60 Glucose 105 Calcium 8.8 Magnesium 1.8 Total Bilirubin 0.3 AST 32 ALT 56 Alkaline Phosphatase 69 Total Protein 5.4 L Albumin 3.2 L 04/07/17 17:48 Urethra Chlamydia Culture - Final Impressions: Chest X-Ray 04/10/17 06:00 IMPRESSION: 1. Interval removal of NG tube and endotracheal tube. Persistent right infrahilar airspace opacity Assessment & Plan - Diagnosis (1) Acute respiratory failure with hypoxia and hypercapnia Is this a current diagnosis for this admission?: Yes Plan: Improved (2) COPD exacerbation Is this a current diagnosis for this admission?: Yes Plan: Stable (3) Alcohol abuse Is this a current diagnosis for this admission?: Yes Plan: No current evidence for delirium tremens although patient has flat affect may have some dementia (4) Protein calorie malnutrition Is this a current diagnosis for this admission?: Yes Plan: suggest enteral feeding vital
--- NOTE | 2017-04-13 16:08 | PDOC PROGRESS REPORT ---
Subjective Progress Note for:: 04/12/17 Subjective:: Patient seen on morning rounds yesterday on the floor. However dictation was missed. Patient claims to be feeling better and has ambulated without any difficulty. Pt is denying any chest arm or neck discomfort. Patient denying any PND, orthopnea. Patient denied any sustained palpitations, dizziness, syncope, near syncope. Patient denying any fever chills. Patient denying any other significant discomfort. Patient is maintaining sinus rhythm. Review of systems: Rest review of systems negative. Medications: Medications have been reviewed. Reason For Visit: ACUTE RESPIRATORY FAILURE WITH HYPOXIA AND Physical Exam Vital Signs: Temp Pulse Resp BP Pulse Ox 97.5 F 68 14 120/79 96 04/12/17 12:00 04/12/17 14:09 04/12/17 14:09 04/12/17 12:00 04/12/17 14:09 Intake & Output 04/12/17 04/13/17 04/14/17 06:59 06:59 06:59 Intake Total 894 Output Total 620 Balance 274 Weight 73.4 kg Exam: GENERAL: well-nourished and in no acute distress. Alert and oriented x3 HEAD: Atraumatic, normocephalic. EYES: Pupils equal round and reactive to light, extraocular movements intact, sclera anicteric, conjunctiva are normal. ENT: TMs normal, nares patent, oropharynx clear without exudates. Moist mucous membranes. No oral ulcerations or bleeding gums noted NECK: supple without lymphadenopathy. Trachea is central. No cervical or axillary lymphadenopathy noted. Carotids are 2+, JVD WNL LUNGS: Respiration seems nonlabored, no significant accessory muscle action noted. Breath sounds clear to auscultation bilaterally and equal noted. No wheezes rales or rhonchi noted. No significant dullness noted on percussion. CHEST: Palpation of the chest wall shows no significant chest wall tenderness. No other significant abnormalities noted. HEART: [place] [employer], No PSH, 1/6 MALIK aortic area, 1/6 mayer systolic murmur mitral area, no rubs, no gallops. ABDOMEN: Soft, no significant tenderness appreciated, normoactive bowel sounds. No guarding, no rebound. No rigidity noted . No masses appreciated. EXTREMITIES: Pedal pulses are 1-2+, no calf tenderness noted. No clubbing or cyanosis. Negative pedal edema noted NEUROLOGICAL: Focused neurological exam showed no significant neurologic deficit. Normal speech, no focal weakness appreciated. PSYCH: Normal mood, normal affect. Judgment and insight within normal limits. SKIN: No significant ecchymosis, rash, ulcerations or signs of pruritus noted. MUSCULOSKELETAL EXAM: No significant joint swelling noted. Results Laboratory Results: 04/12/17 05:19 04/12/17 05:19 Impressions: Chest X-Ray 04/10/17 06:00 IMPRESSION: 1. Interval removal of NG tube and endotracheal tube. Persistent right infrahilar airspace opacity Assessment & Plan - Diagnosis (1) Acute respiratory failure with hypoxia and hypercapnia Is this a current diagnosis for this admission?: Yes (2) COPD exacerbation Is this a current diagnosis for this admission?: Yes (3) Coronary artery disease Qualifiers: Coronary Disease-Associated Artery/Lesion type: [place] artery [place] vs. transplanted heart: [place] heart Associated angina: angina presence unspecified Qualified Code(s): I25.10 - Atherosclerotic heart disease of [place] coronary artery without angina pectoris Is this a current diagnosis for this admission?: Yes (4) Diabetes mellitus type 2 in nonobese Is this a current diagnosis for this admission?: Yes - Notes Notes: Acute respiratory failure with hypoxemia and hypercapnia: Improved with bronchodilator therapy. Patient would benefit from compliance with medication and avoidance of respiratory irritants. COPD exacerbation: Continue current therapy. Continue current management plans. Coronary artery disease: Patient currently stable without any angina or angina equivalent symptoms. Continue home medications. Diabetes: Currently stable. Continue good control of diabetes but avoid hyper or hypoglycemia. Patient could follow-up with me if he wishes. - Time Time with patient: 15-25 minutes - CODE STATUS was discussed, patient remains full code. More than 50% of the time spent coordinating care, discussing management plans with involved caregivers. Management plans discussed with involved personnels. Medical decision making was of moderate to high complexity , patient's has multiple comorbidities. Medications reviewed and adjusted accordingly: Yes
--- NOTE | 2017-04-18 12:34 | PDOC PROGRESS REPORT ---
Subjective Progress Note for:: 04/10/17 Subjective:: intubated Reason For Visit: ACUTE RESPIRATORY FAILURE WITH HYPOXIA AND Physical Exam Vital Signs: Temp Pulse Resp BP Pulse Ox 97.5 F 68 14 120/79 96 04/12/17 12:00 04/12/17 14:09 04/12/17 14:09 04/12/17 12:00 04/12/17 14:09 General appearance: PRESENT: no acute distress, disheveled, well-developed. ABSENT: cooperative Head exam: PRESENT: atraumatic, normocephalic Eye exam: PRESENT: conjunctiva pale. ABSENT: nystagmus, periorbital swelling, scleral icterus Mouth exam: PRESENT: dry mucosa, neck supple, tongue midline Neck exam: ABSENT: carotid bruit, JVD, lymphadenopathy, thyromegaly, tracheal deviation, tracheostomy Respiratory exam: PRESENT: decreased breath sounds, prolonged expiratory phas, rales, rhonchi, symmetrical, unlabored, wheezes. ABSENT: retraction, stridor, tachypnea Cardiovascular exam: PRESENT: RRR, +S1, +S2 Pulses: PRESENT: normal radial pulses GI/Abdominal exam: PRESENT: diminished bowel sounds, tenderness Extremities exam: ABSENT: calf tenderness Musculoskeletal exam: ABSENT: deformity, dislocation Neurological exam: PRESENT: awake Skin exam: PRESENT: dry, warm Results Laboratory Results: 04/12/17 05:19 04/12/17 05:19 Impressions: Chest X-Ray 04/10/17 06:00 IMPRESSION: 1. Interval removal of NG tube and endotracheal tube. Persistent right infrahilar airspace opacity Assessment & Plan - Diagnosis (1) Acute respiratory failure with hypoxia and hypercapnia Is this a current diagnosis for this admission?: Yes Plan: Stable on BiPAP (2) COPD exacerbation Is this a current diagnosis for this admission?: Yes Plan: Stable (3) Alcohol abuse Is this a current diagnosis for this admission?: Yes Plan: No current evidence for delirium tremens although patient has flat affect may have some dementia (4) Protein calorie malnutrition Is this a current diagnosis for this admission?: Yes Plan: suggest enteral feeding vital - Time Total Critical Time (Minutes): 35
== END 2017-04-12 15:55 | DRG 871 ==
LOC: ER 09:49 → UNDOADMIN 12:59 → EH 12:59 → ICU 04-07 04:38 → 4S 04-11 15:17
PROVIDERS: ADMIT Internal Medicine; ATTEND Internal Medicine
PROC: 0BH17EZ Insertion of Endotracheal Airway into Trachea, Via Natural or Artificial Opening (ICD-10-PCS; principal; 2017-04-06)
PROC: 5A1945Z Respiratory Ventilation, 24-96 Consecutive Hours (ICD-10-PCS; 2017-04-06)
DX: A41.9 Sepsis, unspecified organism (principal); J96.02 Acute respiratory failure with hypercapnia; J18.1 Lobar pneumonia, unspecified organism; J44.1 Chronic obstructive pulmonary disease with (acute) exacerbation; I50.22 Chronic systolic (congestive) heart failure; N13.8 Other obstructive and reflux uropathy; I47.2 Ventricular tachycardia; E46 Unspecified protein-calorie malnutrition; E87.1 Hypo-osmolality and hyponatremia; E83.42 Hypomagnesemia; I25.10 Atherosclerotic heart disease of native coronary artery without angina pectoris; E11.9 Type 2 diabetes mellitus without complications; N40.1 Benign prostatic hyperplasia with lower urinary tract symptoms; K21.9 Gastro-esophageal reflux disease without esophagitis; F32.9 Major depressive disorder, single episode, unspecified; F10.10 Alcohol abuse, uncomplicated; F14.90 Cocaine use, unspecified, uncomplicated; B95.2 Enterococcus as the cause of diseases classified elsewhere; Z16.21 Resistance to vancomycin; Y90.9 Presence of alcohol in blood, level not specified; I25.2 Old myocardial infarction; Z68.24 Body mass index [BMI] 24.0-24.9, adult; Z79.84 Long term (current) use of oral hypoglycemic drugs; Z79.82 Long term (current) use of aspirin; Z79.4 Long term (current) use of insulin; Z79.899 Other long term (current) drug therapy
CPT/HCPCS: 36415; 36600; 71045; 80048; 80053; 80061; 81001; 82803; 82962; 83036; 83605; 83690; 83735; 83880; 84100; 84484; 85025; 85610; 87040; 87070; 87077; 87086; 87186; 87205; 93005; 93010; 94002; 94003; 94640; 94660; 94799; 96360; 96361; 96372; 99291; G8978-GP; G8979-GP; G8987-GO; G8988-GO; J0692; J0878; J1815; J1956; J2250; J2704; J2920; J3105; J3475; J3490; J7030; J7620

== ENCOUNTER 2018-01-17 23:42 | Inpatient (IN) | payer MEDICARE, MEDICAID ==
[2018-01-18 02:20] LABS: APPEARANCE,URINE CLOUDY; BILIRUBIN,URINE NEGATIVE (NEGATIVE); COLOR,URINE YELLOW; GLUCOSE, URINE NEGATIVE (NEGATIVE); KETONES,URINE NEGATIVE (NEGATIVE); LEUKOCYTE ESTERASE,URINE LARGE (NEGATIVE); NITRITE,URINE NEGATIVE (NEGATIVE); PROTEIN,URINE 30 mg/dL (NEGATIVE); URINE SPECIFIC GRAVITY 1.011
--- NOTE | 2018-01-18 02:44 | RADIOLOGY REPORT (SQ) ---
EXAM DESCRIPTION: XR CHEST 2 VIEWS COMPLETED DATE/TME: 01/18/2018 02:09 CLINICAL HISTORY: 62 years, Male, cough COMPARISON: 04/10/2017 chest x-ray NUMBER OF VIEWS: 3 TECHNIQUE: Frontal and lateral views of the chest LIMITATIONS: None. FINDINGS: Heart size is normal. Mild atheromatous change thoracic aorta. COPD. Lungs are clear. No pneumothorax IMPRESSION: COPD. Lungs are clear copyright 2010 [employer]- All Rights Reserved
[2018-01-18] MEDS ORDERED: NORMAL SALINE 1000 ML 1,000 ML IV ONE ×2 (02:47→05:27)
[2018-01-18 03:48] LABS: ABSOLUTE LYMPHOCYTES (AUTO) 1.8 10^3/uL (0.5-4.7); ABSOLUTE MONOCYTES (AUTO) 1.5 10^3/uL (0.1-1.4); ABSOLUTE NEUT (AUTO) 13.6 10^3/uL (1.7-8.2); BASOPHILS % (AUTO) 0.3 % (0-2); HEMATOCRIT 43.1 % (37.9-51.0); HEMOGLOBIN 14.6 g/dL (13.5-17.0); LYMPHOCYTES % (AUTO) 10.4 % (13-45); MEAN CORPUSCULAR HEMOGLOBIN 30.9 pg (27.0-33.4); MEAN CORPUSCULAR HGB CONC 33.9 g/dL (32.0-36.0); MEAN CORPUSCULAR VOLUME 91 fl (80-97); MONOCYTES % (AUTO) 9.1 % (3-13); PLATELET COUNT 309 10^3/uL (150-450); RED BLOOD COUNT 4.73 10^6/uL (4.35-5.55); RED CELL DISTRIBUTION WIDTH 15.6 % (11.5-14.0); SEGMENTED NEUTROPHILS % (AUTO) 80.2 % (42-78); TOTAL CELLS COUNTED % (AUTO) 100 %; WHITE BLOOD COUNT 16.9 10^3/uL (4.0-10.5)
[2018-01-18 04:04] LABS: ANION GAP 18 (5-19); BLOOD UREA NITROGEN 18 mg/dL (7-20); CALCIUM 9.2 mg/dL (8.4-10.2); CARBON DIOXIDE 27 mmol/L (22-30); CHLORIDE 92 mmol/L (98-107); GLUCOSE 155 mg/dL (75-110); POTASSIUM 3.5 mmol/L (3.6-5.0); SODIUM 136.5 mmol/L (137-145)
[2018-01-18] MEDS ORDERED: CEFTRIAXONE INJ 1000 MG VIAL IV ONE (04:05)
--- NOTE | 2018-01-18 05:27 | ER Document Report ---
ED General - General Chief Complaint: Urinary Problem Stated Complaint: SHORTNESS OF BREATH Time Seen by Provider: 01/18/18 01:34 Notes: Patient is a pleasant 8-year-old male who presents with 2 different complaints. First complaint is he has had some little bit of coughing and wheezing. No fevers. No vomiting. Patient does have history of COPD. He still currently smokes but says he is cut down to 2-4 cigarettes a day. Patient's second complaint is of dysuria. He says since been ongoing for approximately 24 hours. He had worsening weakness and has felt unwell and has had chills at home because of this. He says in the past she is got UTI and became very septic and had stay in hospital for several days. He says his worsening weakness makes him concerned about this. He says usually walks with a walker. He said today he is going to point where he has to stay in a wheelchair. He says he is able to get up and use the bathroom but just feels very weak. TRAVEL OUTSIDE OF THE [place] IN LAST 30 DAYS: No - Related Data Allergies/Adverse Reactions: walnut Allergy (Unknown, Verified 03/10/17 05:00) Past Medical History - Social History Smoking Status: Current Every Day Smoker Frequency of alcohol use: None Drug Abuse: None Family History: Hypertension Patient has suicidal ideation: No Patient has homicidal ideation: No - Past Medical History Cardiac Medical History: Reports: Hx Congestive Heart Failure, Hx Heart Attack Pulmonary Medical History: Reports: Hx COPD Endocrine Medical History: Reports: Hx Diabetes Mellitus Type 1, Hx Diabetes Mellitus Type 2 - insulin dependent Renal/ Medical History: Denies: Hx Peritoneal Dialysis GI Medical History: Reports: Hx Gastroesophageal Reflux Disease Psychiatric Medical History: Reports: Hx Depression Traumatic Medical History: Denies: Hx Traumatic Brain Injury Past Surgical History: Reports: Other - Patient denied any significant past surgical history. - Immunizations Immunizations up to date: Yes Hx Diphtheria, Pertussis, Tetanus Vaccination: Yes Review of Systems - Review of Systems Notes: My Normal Review Basic REVIEW OF SYSTEMS: CONSTITUTIONAL : Chills at home. Generalized weakness EENT: Denies eye, ear, throat, or mouth pain or symptoms. Denies nasal or sinus congestion. CARDIOVASCULAR: Denies chest pain. RESPIRATORY: Cough GASTROINTESTINAL: Denies abdominal pain. Denies nausea, vomiting, or diarrhea. GENITOURINARY: Dysuria MUSCULOSKELETAL: Denies neck or back pain or joint pain or swelling. SKIN: Denies rash or skin lesions. NEUROLOGICAL: Denies altered mental status or loss of consciousness. Denies headache. ALL OTHER SYSTEMS REVIEWED AND NEGATIVE. Physical Exam - Vital signs Vitals: Temp Pulse Resp BP Pulse Ox 97.8 F 118 H 18 121/72 100 01/18/18 00:37 01/18/18 00:37 01/18/18 00:37 01/18/18 00:37 01/18/18 00:37 - Notes Notes: General Appearance: Well nourished, alert, cooperative, no acute distress, no obvious discomfort. Weak appearing. Vitals: reviewed, See vital signs table. Head: no swelling or tenderness to the head Eyes: PERRL, EOMI, Conjuctiva clear Mouth: No decreasd moisture Lungs: No wheezing, No rales, No rhonci, No accessory muscle use, good air exchange bilaterally. Heart: Normal rate, Regular rythm, No murmur, no rub Abdomen: Normal BS, soft, No rigidity, No reducible abdominal tenderness to palpation., No guarding, no rebound, no abdominal masses, no organomegaly Genital: Uncircumcised male. No redness or swelling to the glans. No redness or swelling to the genitalia. Foreskin able to be easily pulled back. Extremities: good pulses in all extremities, no swelling or tenderness in the extremities, no edema. Skin: warm, dry, appropriate color, no rash Neuro: speech clear, oriented x 3, normal affect, responds appropriately to questions. Cranial nerves II through XII are intact. Patient able to move all 4 extremities on his own. All 4 extremities are just globally weak without any focality to the weakness. Course - Re-evaluation Re-evalutation: 01/18/18 05:31 Patient has signs and symptoms consistent with his urine tract infection. I suspect that he is showing signs of early sepsis being that he has a elevated white count with persistent tachycardia despite IV fluid bolus. Also is weak appearing. Urinalysis shows obvious signs of infection. Being that his persistent tachycardia and leukocytosis and source of infection he does meet sepsis criteria therefore I consulted the hospitalist for consideration for admission. I did speak with Dr. Garcia who agrees to evaluate the patient for admission. Patient has been given Rocephin. Blood and urine cultures have been sent. Dictation of this chart was performed using voice recognition software; therefore, there may be some unintended grammatical errors. - Vital Signs Vital signs: Temp Pulse Resp BP Pulse Ox 98.5 F 110 H 20 109/65 99 01/18/18 05:16 01/18/18 05:16 01/18/18 05:16 01/18/18 05:16 01/18/18 05:16 - Laboratory Result Diagrams: 01/18/18 03:36 01/18/18 03:36 Laboratory results interpreted by me: 01/18/18 01/18/18 01/18/18 01:52 03:36 03:36 WBC 16.9 H RDW 15.6 H Seg Neutrophils % 80.2 H Lymphocytes % 10.4 L Absolute Neutrophils 13.6 H Absolute Monocytes 1.5 H Sodium 136.5 L Potassium 3.5 L Chloride 92 L Glucose 155 H Urine Protein 30 H Urine Blood SMALL H Urine Urobilinogen 4.0 H Ur Leukocyte Esterase LARGE H Discharge - Discharge Clinical Impression: SIRS (systemic inflammatory response syndrome) UTI (urinary tract infection) Qualifiers: Urinary tract infection type: site unspecified Hematuria presence: without hematuria Qualified Code(s): N39.0 - Urinary tract infection, site not specified Condition: Stable Disposition: ADMITTED OBSERVATION Admitting Provider: Hospitalist Unit Admitted: Telemetry
[2018-01-18] MEDS ORDERED: ACETAMINOPHEN 325 MG TABLET PO PRN (06:11)
[2018-01-18] MEDS ORDERED: MAG HYDROX/AL HYDROX/SIMETH SUSP 30 ML UDCUP PO PRN (06:11)
[2018-01-18] MEDS ORDERED: PROMETHAZINE HCL 25 MG SUPP.RECT PR PRN (06:11)
[2018-01-18] MEDS ORDERED: PROMETHAZINE HCL INJ 25 MG/1 ML VIAL IV PRN (06:11)
[2018-01-18] MEDS ORDERED: POTASSIUM CHLORIDE 20 MEQ/15 ML UDCUP PO ONE (06:16)
[2018-01-18] MEDS ORDERED: DEXTROSE 50%-WATER 25 GM/50 ML DISP.SYRIN IV PRN ×2 (06:30)
[2018-01-18] MEDS ORDERED: GLUCAGON,HUMAN RECOMB 1 MG INJ IM PRN (06:30)
[2018-01-18] MEDS ORDERED: DEXTROSE 40% GEL 15 GM TUBE PO PRN ×2 (06:30)
--- NOTE | 2018-01-18 06:41 | PDOC H&P ---
History of Present Illness Admission Date/PCP: 01/18/18 05:41 [place] Patient complains of: Dysuria History of Present Illness: TAMMY RICHARDS is a 62 year old male very poor historian, I have to keep redirecting my question and do not get adequate answer. Patient who presents to the emergency department complaining of 5 days of dysuria with frequency has been getting worse over time, denies hematuria, tells me that he had several episodes of UTI in the past and he does not know why this happens to him. He is also complaining of some little bit of coughing and wheezing, patient is a smoker and tells me he has cut down cigarettes to 2-4 a day. Denies fevers, nausea or vomiting. Patient does have history of COPD. . He has associated worsening weakness and has felt unwell and has had chills at home because of this. He says his worsening weakness makes him concerned about this. He is in a wheelchair and sometimes walks with a walker. He said today he is going to point where he has to stay in a wheelchair. He says he is able to get up and use the bathroom but just feels very weak. Patient has been afebrile here or at home, his white blood cell count 16.9 and his urinalysis positive for UTI. Patient meets criteria for sepsis and has been persistently tachycardic in the ED despite given 2 L of IV fluids, it was felt safer to keep the patient in the hospital for treatment. IV Rocephin given in the ED Past Medical History Cardiac Medical History: Reports: Congestive Heart Failure, Myocardial Infarction Pulmonary Medical History: Reports: Chronic Obstructive Pulmonary Disease (COPD) Endocrine Medical History: Reports: Diabetes Mellitus Type 2 - insulin dependent GI Medical History: Reports: Gastroesophageal Reflux Disease Psychiatric Medical History: Reports: Depression Past Surgical History Past Surgical History: Reports: Other - Patient denied any significant past surgical history. Social History Smoking Status: Current Every Day Smoker - 2-4 cigarettes a day Frequency of Alcohol Use: Occasional Hx Recreational Drug Use: No - unable to obtain Drugs: Cocaine Hx Prescription Drug Abuse: No Past Social History Note: Lives with his daughter Family History Family History: Hypertension Parental Family History Reviewed: Yes Children Family History Reviewed: Yes Sibling(s) Family History Reviewed.: Yes Medication/Allergy Home Medications: Acetaminophen [Tylenol 325 mg Tablet] 650 mg PO Q4HP PRN 04/06/17 Aspirin [Ecotrin 81 mg EC Tablet] 81 mg PO DAILY 04/06/17 Atorvastatin Calcium [Lipitor 40 mg Tablet] 40 mg PO QHS 04/06/17 Finasteride [Proscar 5 mg Tablet] 5 mg PO DAILY 04/06/17 Gabapentin [Neurontin 300 mg Capsule] 300 mg PO Q8 04/06/17 Insulin Glargine,Hum.rec.anlog [Lantus Insulin 100 Unit/mL] 16 unit SUBCUT NOON 04/06/17 Lisinopril [Prinivil 2.5 mg Tablet] 2.5 mg PO DAILY 04/06/17 Metformin HCl [Glucophage 500 mg Tablet] 500 mg PO BIDACBS 04/06/17 Omeprazole 20 mg PO DAILY 04/06/17 Oxybutynin Chloride [Ditropan 5 mg Tablet] 5 mg PO DAILY 04/06/17 Sennosides/Docusate 8.6-50 mg [Senna Plus Tablet] 2 tab PO QHS 04/06/17 Spironolactone [Aldactone 25 mg Tablet] 25 mg PO DAILY 04/06/17 Tamsulosin HCl [Flomax 0.4 mg Cap.sr] 0.4 mg PO DAILY 04/06/17 Triamcinolone Acetonide [Aristocort 0.1% Ointment] 1 applic TP BID 04/06/17 Albuterol Sulfate [Proair HFA Inhalation Aerosol 8.5 gm MDI] 2 puff IH Q4HP PRN hfa.aer.ad 04/12/17 Budesonide/Formoterol Fumarate [Symbicort 160-4.5 Mcg Inhaler] 2 puff IH BID #1 hfa.aer.ad 04/12/17 Carvedilol [Coreg 6.25 mg Tablet] 6.25 mg PO Q12 tablet 04/12/17 Levofloxacin [Levaquin 750 mg Tablet] 750 mg PO DAILY #5 tab 04/12/17 Allergies/Adverse Reactions: walnut Allergy (Unknown, Verified 03/10/17 05:00) Review of Systems Review of Systems: As outlined in the HPI, all others negative Physical Exam Vital Signs: Temp Pulse Resp BP Pulse Ox 98.5 F 110 H 20 109/65 99 01/18/18 05:16 01/18/18 05:16 01/18/18 05:16 01/18/18 05:16 01/18/18 05:16 Additional comments: General appearance: The condition, disheveled, alert and cooperative, and appears to be in no acute distress. Sitting on a wheelchair Head: Normocephalic Eyes: PEERL, EOMI, vision is grossly intact. Ears: External auditory canal and tympanic membranes clear, hearing grossly intact. Nose: No nasal discharge. Throat: Oral cavity and pharynx normal, poor oral hygiene. No inflammation, swelling, exudate or lesions. Neck: Neck supple, nontender without lymphadenopathy, masses or thyromegaly. Cardiac: Normal S1 and S2. No S3, S4 or murmurs. Rhythm is regular. There is no cyanosis or pallor. Extremities are warm and well perfused. Capillary refill is less than 2 seconds. No carotid bruits. Lungs: Clear to auscultation and percussion with mild diffuse rales, mild rhonchi, no wheezing, diffuse diminished breath sounds. Not using accessory muscles. Abdomen: Positive bowel sounds. Soft. Nondistended, nontender. No guarding or rebound. No masses. No hepatosplenomegaly Extremities: No significant deformity or joint abnormality. No edema. Peripheral pulses intact. No varicosities. Neurological: Cranial nerves II through XII grossly intact. Move all 4 extremities Skin: Skin with facial erythema and flakes, normal texture and turgor with no lesions or eruptions, warm and dry. Psychiatric: The mental examination revealed the patient was oriented to person , place, and time. The patient has a very slow thoughts, flat affect. Results Laboratory Results: 01/18/18 01/18/18 01/18/18 01:52 03:36 03:36 WBC 16.9 H RBC 4.73 Hgb 14.6 Hct 43.1 MCV 91 MCH 30.9 MCHC 33.9 RDW 15.6 H Plt Count 309 Seg Neutrophils % 80.2 H Lymphocytes % 10.4 L Monocytes % 9.1 Eosinophils % 0.0 Basophils % 0.3 Absolute Neutrophils 13.6 H Absolute Lymphocytes 1.8 Absolute Monocytes 1.5 H Absolute Eosinophils 0.0 Absolute Basophils 0.0 Sodium 136.5 L Potassium 3.5 L Chloride 92 L Carbon Dioxide 27 Anion Gap 18 BUN 18 Creatinine 0.85 Est GFR ( Amer) > 60 Est GFR (Non-Af Amer) > 60 Glucose 155 H Lactic Acid Calcium 9.2 Urine Color YELLOW Urine Appearance CLOUDY Urine pH 5.0 Ur Specific [place] 1.011 Urine Protein 30 H Urine Glucose (UA) NEGATIVE Urine Ketones NEGATIVE Urine Blood SMALL H Urine Nitrite NEGATIVE Urine Bilirubin NEGATIVE Urine Urobilinogen 4.0 H Ur Leukocyte Esterase LARGE H Urine WBC (Auto) >182 Urine RBC (Auto) 8 Urine WBC Clumps MANY Urine Yeast (Budding) PRESENT Urine Ascorbic Acid NEGATIVE 01/18/18 05:30 WBC RBC Hgb Hct MCV MCH MCHC RDW Plt Count Seg Neutrophils % Lymphocytes % Monocytes % Eosinophils % Basophils % Absolute Neutrophils Absolute Lymphocytes Absolute Monocytes Absolute Eosinophils Absolute Basophils Sodium Potassium Chloride Carbon Dioxide Anion Gap BUN Creatinine Est GFR ( Amer) Est GFR (Non-Af Amer) Glucose Lactic Acid 1.3 Calcium Urine Color Urine Appearance Urine pH Ur Specific [place] Urine Protein Urine Glucose (UA) Urine Ketones Urine Blood Urine Nitrite Urine Bilirubin Urine Urobilinogen Ur Leukocyte Esterase Urine WBC (Auto) Urine RBC (Auto) Urine WBC Clumps Urine Yeast (Budding) Urine Ascorbic Acid Impressions: Chest X-Ray 01/18/18 02:09 IMPRESSION: COPD. Lungs are clear copyright 2010 [employer]- All Rights Reserved Assessment & Plan - Diagnosis (1) Sepsis Qualifiers: Sepsis type: sepsis due to unspecified organism Qualified Code(s): A41.9 - Sepsis, unspecified organism Is this a current diagnosis for this admission?: Yes Plan: Patient meets criteria with leukocytosis, tachycardia and focus of infection (2) UTI (urinary tract infection) Qualifiers: Urinary tract infection type: site unspecified Hematuria presence: without hematuria Qualified Code(s): N39.0 - Urinary tract infection, site not specified Is this a current diagnosis for this admission?: Yes Plan: Patient comes complaining of dysuria that has been getting worse for the last 5 days, urinalysis in the emergency departmen shows urinary tract infection. Patient has history of multiple UTI in the past and her last urine culture from March this year grows VRE that was felt contamination, Pseudomonas aeruginosa , Citrobacter Freundii and Sophia albicans. After reviewing sensitivity will place the patient on IV Levaquin. Please follow blood cultures and urine cultures. I am placing the patient on an as at 75 cc/h. (3) COPD (chronic obstructive pulmonary disease) Qualifiers: COPD type: emphysema Emphysema type: unspecified Qualified Code(s): J43.9 - Emphysema, unspecified Is this a current diagnosis for this admission?: Yes Plan: Patient came complaining of mild respiratory symptoms, vitamin went to see him this was a stable, no medications were given and probably does his baseline status. Continue with home bronchodilators. Oxygen saturation 99% on room air. (4) Diabetes mellitus type 2 in nonobese Is this a current diagnosis for this admission?: Yes Plan: Accu-Cheks q. before meals and at bedtime, insulin lispro sliding scale and hypoglycemia protocol. Patient can continue with his home metformin and insulin glargine. (5) Chronic systolic CHF (congestive heart failure) Is this a current diagnosis for this admission?: Yes Plan: Seems to be compensated, patient has received 1 L of IV fluids and I am continuing with 75 cc/h, please watch for symptoms of fluid overload. Not on Lasix at home as per last discharge summary. (6) Coronary artery disease Qualifiers: Coronary Disease-Associated Artery/Lesion type: [place] artery [place] vs. transplanted heart: [place] heart Associated angina: angina presence unspecified Qualified Code(s): I25.10 - Atherosclerotic heart disease of [place] coronary artery without angina pectoris Is this a current diagnosis for this admission?: Yes Plan: Patient is not complaining of any acute cardiac symptomatology, resume home medications. (7) DVT prophylaxis Is this a current diagnosis for this admission?: Yes Plan: Lovenox - Time Time Spent: 50 to 70 Minutes - Inpatient Certification Based on my medical assessment, after consideration of the patient's comorbidities, presenting symptoms, or acuity I expect that the services needed warrant INPATIENT care.: Yes I certify that my determination is in accordance with my understanding of Medicare's requirements for reasonable and necessary INPATIENT services [42 CFR 412.3e].: Yes Medical Necessity: Risk of Complication if Not Cared For in Hospital - Sepsis, septic shock - Plan Summary Plan Summary: Case discussed with patient, agrees with plan
[2018-01-18 07:21] LABS: URINE AMPHETAMINES SCREEN NEGATIVE; URINE BARBITURATES SCREEN NEGATIVE; URINE BENZODIAZEPINES SCREEN NEGATIVE; URINE MARIJUANA (THC) SCREEN NEGATIVE; URINE METHADONE SCREEN NEGATIVE; URINE PHENCYCLIDINE SCREEN NEGATIVE
[2018-01-18 07:54] LABS: URINE COCAINE SCREEN NEGATIVE
[2018-01-18] MEDS: ENOXAPARIN SODIUM INJ 40 MG/0.4 ML DISP.SYRIN SUBCUT SCH (10:38)
[2018-01-18] MEDS: LEVOFLOXACIN 750 MG/D5W RTU 750 MG/150 ML RTUPB IV SCH (10:38)
[2018-01-18] MEDS: NORMAL SALINE 1000 ML 1,000 ML IV PRN ×2 (13:38→23:01)
[2018-01-18] MEDS ORDERED: FLUTICASONE NASAL SPRAY 50 MCG/SPRY 120 SPRAY/16 GM ONE (22:41)
[2018-01-18] MEDS: FLUTICASONE NASAL SPRAY 50 MCG/SPRY 120 SPRAY/16 GM NASL PRN (23:02)
[2018-01-19] MEDS: ENOXAPARIN SODIUM INJ 40 MG/0.4 ML DISP.SYRIN SUBCUT SCH (09:44)
[2018-01-19] MEDS: LEVOFLOXACIN 750 MG/D5W RTU 750 MG/150 ML RTUPB IV SCH (09:44)
[2018-01-19] MEDS: NORMAL SALINE 1000 ML 1,000 ML IV PRN (15:42)
[2018-01-19 15:46] LABS: ABSOLUTE BASOPHILS # (AUTO) 0.1 10^3/uL (0.0-0.2); ABSOLUTE EOSINOPHILS # (AUTO) 0.1 10^3/uL (0.0-0.6); ABSOLUTE LYMPHOCYTES (AUTO) 1.5 10^3/uL (0.5-4.7); ABSOLUTE MONOCYTES (AUTO) 1.1 10^3/uL (0.1-1.4); ABSOLUTE NEUT (AUTO) 8.5 10^3/uL (1.7-8.2); BASOPHILS % (AUTO) 0.5 % (0-2); EOSINOPHILS % (AUTO) 1.2 % (0-6); HEMATOCRIT 35.7 % (37.9-51.0); LYMPHOCYTES % (AUTO) 13.5 % (13-45); MEAN CORPUSCULAR HEMOGLOBIN 30.7 pg (27.0-33.4); MEAN CORPUSCULAR HGB CONC 33.8 g/dL (32.0-36.0); MEAN CORPUSCULAR VOLUME 91 fl (80-97); PLATELET COUNT 236 10^3/uL (150-450); RED BLOOD COUNT 3.93 10^6/uL (4.35-5.55); RED CELL DISTRIBUTION WIDTH 15.7 % (11.5-14.0); SEGMENTED NEUTROPHILS % (AUTO) 74.8 % (42-78); TOTAL CELLS COUNTED % (AUTO) 100 %; WHITE BLOOD COUNT 11.3 10^3/uL (4.0-10.5)
[2018-01-19 15:48] LABS: HEMOGLOBIN 12.1 g/dL (13.5-17.0)
[2018-01-19 16:05] LABS: ANION GAP 13 (5-19); BLOOD UREA NITROGEN 16 mg/dL (7-20); CALCIUM 8.7 mg/dL (8.4-10.2); CARBON DIOXIDE 21 mmol/L (22-30); CHLORIDE 104 mmol/L (98-107); GLUCOSE 146 mg/dL (75-110); POTASSIUM 3.6 mmol/L (3.6-5.0); SODIUM 137.7 mmol/L (137-145)
--- NOTE | 2018-01-19 16:55 | PDOC PROGRESS REPORT ---
Subjective Progress Note for:: 01/19/18 Subjective:: The patient is feeling slightly better. He still feels weak. Reason For Visit: UTI,SEPSIS Physical Exam Vital Signs: Temp Pulse Resp BP Pulse Ox 97.8 F 68 20 113/64 98 01/19/18 16:00 01/19/18 16:00 01/19/18 16:00 01/19/18 16:00 01/19/18 16:00 Intake & Output 01/18/18 01/19/18 01/20/18 06:59 06:59 06:59 Intake Total 2918 2006 Output Total 925 500 Balance 1992 150 Weight 73.3 kg General appearance: PRESENT: no acute distress, cooperative, well-developed Head exam: PRESENT: atraumatic, normocephalic Ear exam: PRESENT: normal external ear exam Mouth exam: PRESENT: moist, tongue midline Neck exam: ABSENT: carotid bruit, JVD, lymphadenopathy Respiratory exam: PRESENT: clear to auscultation vangie, symmetrical, unlabored. ABSENT: rales, rhonchi, wheezes Cardiovascular exam: PRESENT: RRR, +S1, +S2 GI/Abdominal exam: PRESENT: normal bowel sounds, soft. ABSENT: distended, guarding, tenderness Extremities exam: PRESENT: +1 edema Musculoskeletal exam: PRESENT: normal inspection Neurological exam: PRESENT: alert, awake, oriented to person, oriented to place , oriented to time, oriented to situation, CN II-XII grossly intact Psychiatric exam: PRESENT: appropriate affect, normal mood. ABSENT: agitated, anxious Focused psych exam: ABSENT: restlessness Results Laboratory Results: 01/19/18 15:20 01/19/18 15:20 01/19/18 01/19/18 15:20 15:20 WBC 11.3 H RBC 3.93 L Hgb 12.1 L D Hct 35.7 L MCV 91 MCH 30.7 MCHC 33.8 RDW 15.7 H Plt Count 236 Seg Neutrophils % 74.8 Lymphocytes % 13.5 Monocytes % 10.0 Eosinophils % 1.2 Basophils % 0.5 Absolute Neutrophils 8.5 H Absolute Lymphocytes 1.5 Absolute Monocytes 1.1 Absolute Eosinophils 0.1 Absolute Basophils 0.1 Sodium 137.7 Potassium 3.6 Chloride 104 Carbon Dioxide 21 L Anion Gap 13 BUN 16 Creatinine 0.70 Est GFR ( Amer) > 60 Est GFR (Non-Af Amer) > 60 Glucose 146 H Calcium 8.7 Magnesium 1.7 Impressions: Chest X-Ray 01/18/18 02:09 IMPRESSION: COPD. Lungs are clear copyright 2010 [employer]- All Rights Reserved Assessment & Plan - Diagnosis (1) Acute cystitis with positive culture Is this a current diagnosis for this admission?: Yes Plan: January 19, 2018-the urine cultures positive for gram-negative bacilli. I will continue the levofloxacin. Once sensitivities are obtained I can narrow the spectrum of the antibiotic therapy. (2) Diabetes mellitus type 2 in nonobese Is this a current diagnosis for this admission?: Yes Plan: January 19, 2018-patient's Accu-Cheks have been fairly reasonable. Continue current regimen. Despite his history of prostate cancer his diabetes is more likely a reason for the cystitis. (3) History of prostate cancer Is this a current diagnosis for this admission?: Yes Plan: January 19, 2018-we did briefly discuss the role of prostatitis in older man with cystitis. Patient has history of prostate cancer. He received extensive radiation therapy. He reports that his PSA has been 0 ever since. It is unlikely that prostatitis is contributing but I will check a PSA. If his PSA has been 0 most recently than an elevated PSA would more likely reflect prostatitis then recurrence of his prostate cancer. - Time Time Spent with patient: 25-34 minutes Medications reviewed and adjusted accordingly: Yes Anticipated discharge: Home
[2018-01-20 05:29] LABS: HEMOGLOBIN 12.2 g/dL (13.5-17.0); MEAN CORPUSCULAR HEMOGLOBIN 30.7 pg (27.0-33.4); MEAN CORPUSCULAR HGB CONC 33.8 g/dL (32.0-36.0); MEAN CORPUSCULAR VOLUME 91 fl (80-97); PLATELET COUNT 250 10^3/uL (150-450); RED BLOOD COUNT 3.97 10^6/uL (4.35-5.55); RED CELL DISTRIBUTION WIDTH 15.6 % (11.5-14.0); WHITE BLOOD COUNT 10.8 10^3/uL (4.0-10.5)
[2018-01-20] MEDS: ENOXAPARIN SODIUM INJ 40 MG/0.4 ML DISP.SYRIN SUBCUT SCH (09:10)
[2018-01-20] MEDS: LEVOFLOXACIN 750 MG/D5W RTU 750 MG/150 ML RTUPB IV SCH (09:11)
[2018-01-20] MEDS ORDERED: PROMETHAZINE HCL INJ 25 MG/1 ML VIAL IV PRN (15:30)
[2018-01-20] MEDS: TAMSULOSIN HCL 0.4 MG CAP.SR.24H PO SCH (18:08)
[2018-01-20] MEDS: FLUTICASONE NASAL SPRAY 50 MCG/SPRY 120 SPRAY/16 GM NASL PRN (21:22)
[2018-01-20] MEDS: IPRATROPIUM/ALBUTEROL 0.5-2.5 MG/3 ML AMPUL NEB PRN (21:33)
--- NOTE | 2018-01-20 22:15 | PDOC PROGRESS REPORT ---
Subjective Progress Note for:: 01/20/18 Subjective:: January 19, 2018-the patient is feeling slightly better. He still feels weak. 01/20/2018-the patient actually feels poorly today. He states that he is having some difficulty urinating. He did not report this yesterday. He clearly looks like he is feeling worse than yesterday. Reason For Visit: UTI,SEPSIS Physical Exam Vital Signs: Temp Pulse Resp BP Pulse Ox 97.7 F 98 18 107/55 L 100 01/20/18 20:58 01/20/18 21:27 01/20/18 21:27 01/20/18 20:58 01/20/18 21:27 Intake & Output 01/19/18 01/20/18 01/21/18 06:59 06:59 06:59 Intake Total 2918 3007 623 Output Total 925 550 625 Balance 1992 2457 -2 Weight 73.3 kg 75 kg General appearance: PRESENT: cooperative, disheveled, mild distress, well- developed Respiratory exam: PRESENT: clear to auscultation vangie, symmetrical, unlabored. ABSENT: rales, rhonchi, wheezes Cardiovascular exam: PRESENT: RRR, +S1, +S2 GI/Abdominal exam: PRESENT: normal bowel sounds, soft. ABSENT: tenderness Neurological exam: PRESENT: alert, awake, oriented to person, oriented to place , oriented to situation Psychiatric exam: PRESENT: appropriate affect - Reflects his current clinical state Results Laboratory Results: 01/20/18 04:27 01/19/18 15:20 01/20/18 01/20/18 04:27 04:27 WBC 10.8 H RBC 3.97 L Hgb 12.2 L Hct 36.0 L MCV 91 MCH 30.7 MCHC 33.8 RDW 15.6 H Plt Count 250 Prostate Specific Ag 1.010 Impressions: Chest X-Ray 01/18/18 02:09 IMPRESSION: COPD. Lungs are clear copyright 2011 [employer]- All Rights Reserved Assessment & Plan - Diagnosis (1) Acute cystitis with positive culture Is this a current diagnosis for this admission?: Yes Plan: January 19, 2018-the urine cultures positive for gram-negative bacilli. I will continue the levofloxacin. Once sensitivities are obtained I can narrow the spectrum of the antibiotic therapy. 01/20/2018-continue levofloxacin for the time being. Awaiting final results of urine culture. Prostatitis could be a possibility. I have added Flomax 0.8 mg daily. (2) Diabetes mellitus type 2 in nonobese Is this a current diagnosis for this admission?: Yes Plan: January 19, 2018-patient's Accu-Cheks have been fairly reasonable. Continue current regimen. Despite his history of prostate cancer his diabetes is more likely a reason for the cystitis. 01/20/2018-still with occasional sugars greater than 150. May need to adjust his medications tomorrow. - Time Time Spent with patient: 15-24 minutes Medications reviewed and adjusted accordingly: Yes
[2018-01-21 04:58] LABS: HEMATOCRIT 35.7 % (37.9-51.0); HEMOGLOBIN 12.2 g/dL (13.5-17.0); MEAN CORPUSCULAR HEMOGLOBIN 30.9 pg (27.0-33.4); MEAN CORPUSCULAR HGB CONC 34.3 g/dL (32.0-36.0); MEAN CORPUSCULAR VOLUME 90 fl (80-97); PLATELET COUNT 232 10^3/uL (150-450); RED BLOOD COUNT 3.96 10^6/uL (4.35-5.55); RED CELL DISTRIBUTION WIDTH 15.5 % (11.5-14.0); WHITE BLOOD COUNT 10.2 10^3/uL (4.0-10.5)
[2018-01-21 05:24] LABS: ANION GAP 11 (5-19); BLOOD UREA NITROGEN 14 mg/dL (7-20); CALCIUM 8.7 mg/dL (8.4-10.2); CARBON DIOXIDE 23 mmol/L (22-30); CHLORIDE 103 mmol/L (98-107); GLUCOSE 127 mg/dL (75-110); POTASSIUM 3.8 mmol/L (3.6-5.0); SODIUM 137.4 mmol/L (137-145)
[2018-01-21] MEDS: LEVOFLOXACIN 750 MG/D5W RTU 750 MG/150 ML RTUPB IV SCH (09:57)
[2018-01-21] MEDS: ENOXAPARIN SODIUM INJ 40 MG/0.4 ML DISP.SYRIN SUBCUT SCH (09:58)
[2018-01-21] MEDS: IPRATROPIUM/ALBUTEROL 0.5-2.5 MG/3 ML AMPUL NEB PRN (14:16)
[2018-01-21] MEDS: INSULIN LISPRO 100 UNIT/ML 3 ML VIAL SUBCUT PRN ×2 (17:08→23:46)
[2018-01-21] MEDS: TAMSULOSIN HCL 0.4 MG CAP.SR.24H PO SCH (17:08)
--- NOTE | 2018-01-21 21:53 | PDOC PROGRESS REPORT ---
Subjective Progress Note for:: 01/21/18 Subjective:: January 19, 2018-the patient is feeling slightly better. He still feels weak. 01/20/2018-the patient actually feels poorly today. He states that he is having some difficulty urinating. He did not report this yesterday. He clearly looks like he is feeling worse than yesterday. Reason For Visit: UTI,SEPSIS Physical Exam Vital Signs: Temp Pulse Resp BP Pulse Ox 97.5 F 107 H 17 129/79 H 100 01/21/18 20:38 01/21/18 20:38 01/21/18 20:38 01/21/18 20:38 01/21/18 20:38 Intake & Output 01/20/18 01/21/18 01/22/18 06:59 06:59 06:59 Intake Total 3007 1043 666 Output Total 550 1125 300 Balance 2457 -82 366 Weight 75 kg 75.6 kg General appearance: PRESENT: no acute distress, cooperative, disheveled, well- developed Respiratory exam: PRESENT: clear to auscultation vangie, symmetrical, unlabored. ABSENT: rales, rhonchi, wheezes Cardiovascular exam: PRESENT: RRR, +S1, +S2 GI/Abdominal exam: PRESENT: normal bowel sounds, soft. ABSENT: distended, tenderness Extremities exam: PRESENT: +1 edema, other - Erythema bilateral lower extremities with dusky discoloration. Scab on the right lower leg. Abrasion over the right first met head. Placing the feet in the bed began to relieve the discoloration. Neurological exam: PRESENT: alert, awake, oriented to person, oriented to place , oriented to situation Psychiatric exam: PRESENT: flat affect Skin exam: PRESENT: other - As above Results Laboratory Results: 01/21/18 04:17 01/21/18 04:17 01/21/18 01/21/18 04:17 04:17 WBC 10.2 RBC 3.96 L Hgb 12.2 L Hct 35.7 L MCV 90 MCH 30.9 MCHC 34.3 RDW 15.5 H Plt Count 232 Sodium 137.4 Potassium 3.8 Chloride 103 Carbon Dioxide 23 Anion Gap 11 BUN 14 Creatinine 0.75 Est GFR ( Amer) > 60 Est GFR (Non-Af Amer) > 60 Glucose 127 H Calcium 8.7 Impressions: Chest X-Ray 01/18/18 02:09 IMPRESSION: COPD. Lungs are clear copyright 2010 [employer]- All Rights Reserved Assessment & Plan - Diagnosis (1) Acute cystitis with positive culture Is this a current diagnosis for this admission?: Yes Plan: January 19, 2018-the urine cultures positive for gram-negative bacilli. I will continue the levofloxacin. Once sensitivities are obtained I can narrow the spectrum of the antibiotic therapy. 01/20/2018-continue levofloxacin for the time being. Awaiting final results of urine culture. Prostatitis could be a possibility. I have added Flomax 0.8 mg daily. 01/21/2018-final results for the urine culture were obtained. Proteus mirabilis that is resistant to quinolone therapy. It is sensitive to cephalosporins. I have discontinued the levofloxacin and started Ancef 2 g every 6 initially and will check for response. We should be able to reduce the dose based on the patient's response. (2) Diabetes mellitus type 2 in nonobese Is this a current diagnosis for this admission?: Yes Plan: January 19, 2018-patient's Accu-Cheks have been fairly reasonable. Continue current regimen. Despite his history of prostate cancer his diabetes is more likely a reason for the cystitis. 01/20/2018-still with occasional sugars greater than 150. May need to adjust his medications tomorrow. 01/21/2018-skin the glucose readings are variable but he had several Accu-Cheks over 200 this afternoon and evening. I will add 6 units of Lantus every morning and continue the sliding scale. (3) Venous insufficiency of both lower extremities Is this a current diagnosis for this admission?: Yes Plan: By elevating the patient's feet the dusky discoloration began to clear. He does have 1+ edema. Because of the edema he is prone to easy bruising and possible infection. I did suggest that he elevate his feet when he is not eating. - Time Time Spent with patient: 15-24 minutes Medications reviewed and adjusted accordingly: Yes
[2018-01-21] MEDS: FLUTICASONE NASAL SPRAY 50 MCG/SPRY 120 SPRAY/16 GM NASL PRN (22:46)
[2018-01-22] MEDS: CEFAZOLIN 2 GM/D5W RTU 2 GM/50 ML RTUPB IV SCH ×5 (03:59→17:30)
[2018-01-22] MEDS: IPRATROPIUM/ALBUTEROL 0.5-2.5 MG/3 ML AMPUL NEB PRN ×3 (04:44→19:25)
[2018-01-22] MEDS ORDERED: CEFAZOLIN 1 GM/D5W RTU 2 GM/100 ML RTUPB IV ONE (04:57)
[2018-01-22] MEDS: NORMAL SALINE 1000 ML 1,000 ML IV PRN (04:57)
[2018-01-22] MEDS: FINASTERIDE 5 MG TABLET PO SCH (10:49)
[2018-01-22] MEDS: INSULIN GLARGINE,HUM.REC.ANLOG 300 UNIT/3 ML INSULN.PEN SUBCUT SCH (10:49)
[2018-01-22] MEDS: ENOXAPARIN SODIUM INJ 40 MG/0.4 ML DISP.SYRIN SUBCUT SCH (10:49)
[2018-01-22] MEDS: LISINOPRIL 5 MG TABLET PO SCH (16:05)
[2018-01-22] MEDS: METFORMIN HCL 500 MG TABLET PO SCH (17:30)
[2018-01-22] MEDS: TAMSULOSIN HCL 0.4 MG CAP.SR.24H PO SCH (17:30)
--- NOTE | 2018-01-22 18:50 | PDOC PROGRESS REPORT ---
Subjective Progress Note for:: 01/22/18 Subjective:: January 19, 2018-the patient is feeling slightly better. He still feels weak. 01/20/2018-the patient actually feels poorly today. He states that he is having some difficulty urinating. He did not report this yesterday. He clearly looks like he is feeling worse than yesterday. 01/22/2018-the patient still feels poorly. I explained the antibiotic sensitivities and the necessity to change antibiotics. Now that he is on antibiotic therapy directed by the sensitivity report he should begin to feel better. Reason For Visit: UTI,SEPSIS Physical Exam Vital Signs: Temp Pulse Resp BP Pulse Ox 97.8 F 109 H 20 114/70 98 01/22/18 17:08 01/22/18 17:08 01/22/18 17:08 01/22/18 17:08 01/22/18 17:08 Intake & Output 01/21/18 01/22/18 01/23/18 06:59 06:59 06:59 Intake Total 1043 1306 100 Output Total 1125 800 Balance -82 506 100 Weight 75.6 kg 73.4 kg General appearance: PRESENT: no acute distress, cooperative, well-developed Respiratory exam: PRESENT: clear to auscultation vangie, symmetrical, unlabored. ABSENT: prolonged expiratory phas, rales, rhonchi, other Cardiovascular exam: PRESENT: RRR, +S1, +S2 GI/Abdominal exam: PRESENT: normal bowel sounds, soft. ABSENT: guarding, tenderness Neurological exam: PRESENT: alert, awake, oriented to person, oriented to place , oriented to situation Psychiatric exam: PRESENT: flat affect Results Laboratory Results: 01/21/18 04:17 01/21/18 04:17 Impressions: Chest X-Ray 01/18/18 02:09 IMPRESSION: COPD. Lungs are clear copyright 2010 [employer]- All Rights Reserved Assessment & Plan - Diagnosis (1) Acute cystitis with positive culture Is this a current diagnosis for this admission?: Yes (2) Diabetes mellitus type 2 in nonobese Is this a current diagnosis for this admission?: Yes (3) Venous insufficiency of both lower extremities Is this a current diagnosis for this admission?: Yes - Time Time Spent with patient: 15-24 minutes Medications reviewed and adjusted accordingly: Yes
[2018-01-22] MEDS: GABAPENTIN 300 MG CAPSULE PO SCH (22:11)
[2018-01-22] MEDS: ATORVASTATIN CALCIUM 40 MG TABLET PO SCH (22:11)
[2018-01-23] MEDS: CEFAZOLIN 2 GM/D5W RTU 2 GM/50 ML RTUPB IV SCH ×5 (01:00→23:02)
[2018-01-23] MEDS: GABAPENTIN 300 MG CAPSULE PO SCH ×3 (06:36→22:59)
[2018-01-23] MEDS: INSULIN GLARGINE,HUM.REC.ANLOG 300 UNIT/3 ML INSULN.PEN SUBCUT SCH (09:30)
[2018-01-23] MEDS: ENOXAPARIN SODIUM INJ 40 MG/0.4 ML DISP.SYRIN SUBCUT SCH (09:30)
[2018-01-23] MEDS: ASPIRIN 81 MG TABLET, ENT COATED PO SCH (09:31)
[2018-01-23] MEDS: OXYBUTYNIN CHLORIDE 5 MG TABLET PO SCH (09:31)
[2018-01-23] MEDS: METFORMIN HCL 500 MG TABLET PO SCH ×2 (09:31→18:48)
[2018-01-23] MEDS: FINASTERIDE 5 MG TABLET PO SCH (09:31)
[2018-01-23] MEDS: LISINOPRIL 5 MG TABLET PO SCH (09:31)
[2018-01-23] MEDS: IPRATROPIUM/ALBUTEROL 0.5-2.5 MG/3 ML AMPUL NEB PRN (13:54)
[2018-01-23] MEDS: TAMSULOSIN HCL 0.4 MG CAP.SR.24H PO SCH (18:48)
[2018-01-23] MEDS: ATORVASTATIN CALCIUM 40 MG TABLET PO SCH (22:59)
[2018-01-24] MEDS: CEFAZOLIN 2 GM/D5W RTU 2 GM/50 ML RTUPB IV SCH ×2 (05:03→12:07)
[2018-01-24] MEDS: GABAPENTIN 300 MG CAPSULE PO SCH ×3 (05:03→22:39)
[2018-01-24] MEDS: OXYBUTYNIN CHLORIDE 5 MG TABLET PO SCH (09:34)
[2018-01-24] MEDS: SPIRONOLACTONE 25 MG TABLET PO SCH (09:34)
[2018-01-24] MEDS: ASPIRIN 81 MG TABLET, ENT COATED PO SCH (09:34)
[2018-01-24] MEDS: METFORMIN HCL 500 MG TABLET PO SCH ×2 (09:34→17:31)
[2018-01-24] MEDS: ENOXAPARIN SODIUM INJ 40 MG/0.4 ML DISP.SYRIN SUBCUT SCH (09:35)
[2018-01-24] MEDS: INSULIN GLARGINE,HUM.REC.ANLOG 300 UNIT/3 ML INSULN.PEN SUBCUT SCH (09:35)
[2018-01-24] MEDS: LISINOPRIL 5 MG TABLET PO SCH (09:35)
[2018-01-24] MEDS: FINASTERIDE 5 MG TABLET PO SCH (09:36)
--- NOTE | 2018-01-24 15:47 | PDOC PROGRESS REPORT ---
Subjective Progress Note for:: 01/24/18 - seen on rounds this afternoon Subjective:: spoke and examined patient at bedside. he has no new acute complaints denies n /v, chest pain, sob or dizziness at this time. denies urinary complaints. Reason For Visit: UTI,SEPSIS Physical Exam Vital Signs: Temp Pulse Resp BP Pulse Ox 97.5 F 97 16 132/90 H 100 01/24/18 13:14 01/24/18 13:14 01/24/18 13:14 01/24/18 13:14 01/24/18 13:14 Intake & Output 01/23/18 01/24/18 01/25/18 06:59 06:59 06:59 Intake Total 2224 1672 Output Total 525 1350 Balance 1699 322 Weight 165 lb 12.602 oz 169 lb 5.04 oz General appearance: PRESENT: no acute distress, disheveled Head exam: PRESENT: atraumatic, normocephalic Eye exam: PRESENT: EOMI. ABSENT: conjunctival injection, scleral icterus Ear exam: PRESENT: normal external ear exam Mouth exam: PRESENT: tongue midline Neck exam: ABSENT: tracheal deviation Respiratory exam: PRESENT: clear to auscultation vangie, symmetrical Cardiovascular exam: PRESENT: +S1, +S2 Pulses: PRESENT: +2 pedal pulses bilateral GI/Abdominal exam: PRESENT: normal bowel sounds, soft. ABSENT: tenderness Extremities exam: ABSENT: pedal edema Neurological exam: PRESENT: alert, awake, oriented to person, oriented to place , oriented to time, oriented to situation, CN II-XII grossly intact Skin exam: PRESENT: dry, warm Results Laboratory Results: 01/21/18 04:17 01/21/18 04:17 Impressions: Chest X-Ray 01/18/18 02:09 IMPRESSION: COPD. Lungs are clear copyright 2011 [employer]- All Rights Reserved Assessment & Plan - Diagnosis (1) Acute cystitis with positive culture Is this a current diagnosis for this admission?: Yes (2) COPD (chronic obstructive pulmonary disease) Qualifiers: COPD type: emphysema Emphysema type: unspecified Qualified Code(s): J43.9 - Emphysema, unspecified Is this a current diagnosis for this admission?: Yes (3) Diabetes mellitus type 2 in nonobese Is this a current diagnosis for this admission?: Yes - Plan Summary Plan Summary: acute cystitis- will start on Ceftin from tonight. was on levaquin initially which was resistant- was switched to rocephin IV- will transition to PO ceftin 5 more days to complete 7 days total course. DM type 2- on insulin- stable. continue with lantus COPD- he's only on albuterol her ein the hospital. he is a current smoker- counseled him to quit. states he's not ready he's on aldactone- i am wondering if this is for ?ascites- he has history of alcohol abuse- he's not sure of his medications. likely d/c in AM
[2018-01-24] MEDS: TAMSULOSIN HCL 0.4 MG CAP.SR.24H PO SCH (17:31)
[2018-01-24] MEDS: CEFUROXIME 500 MG TABLET PO SCH (17:31)
--- NOTE | 2018-01-24 17:31 | PDOC PROGRESS REPORT ---
Subjective Progress Note for:: 01/23/18 Subjective:: January 19, 2018-the patient is feeling slightly better. He still feels weak. 01/20/2018-the patient actually feels poorly today. He states that he is having some difficulty urinating. He did not report this yesterday. He clearly looks like he is feeling worse than yesterday. 01/22/2018-the patient still feels poorly. I explained the antibiotic sensitivities and the necessity to change antibiotics. Now that he is on antibiotic therapy directed by the sensitivity report he should begin to feel better. 01/23/2018-reports feeling slightly better. Reason For Visit: UTI,SEPSIS Physical Exam Vital Signs: Temp Pulse Resp BP Pulse Ox 97.5 F 102 H 16 132/90 H 100 01/24/18 13:14 01/24/18 14:00 01/24/18 13:14 01/24/18 13:14 01/24/18 13:14 Intake & Output 01/23/18 01/24/18 01/25/18 06:59 06:59 06:59 Intake Total 2224 1672 Output Total 525 1350 Balance 1699 322 Weight 75.2 kg 76.8 kg General appearance: PRESENT: no acute distress, well-developed Respiratory exam: PRESENT: clear to auscultation vangie, symmetrical, unlabored. ABSENT: rales, rhonchi, wheezes Cardiovascular exam: PRESENT: RRR, +S1, +S2 GI/Abdominal exam: PRESENT: distended - Dull to percussion, normal bowel sounds , soft Neurological exam: PRESENT: alert, awake, oriented to person, oriented to place , oriented to situation Results Laboratory Results: 01/21/18 04:17 01/21/18 04:17 Impressions: Chest X-Ray 01/18/18 02:09 IMPRESSION: COPD. Lungs are clear copyright 2010 [employer]- All Rights Reserved Assessment & Plan - Diagnosis (1) Acute cystitis with positive culture Is this a current diagnosis for this admission?: Yes Plan: January 19, 2018-the urine cultures positive for gram-negative bacilli. I will continue the levofloxacin. Once sensitivities are obtained I can narrow the spectrum of the antibiotic therapy. 01/20/2018-continue levofloxacin for the time being. Awaiting final results of urine culture. Prostatitis could be a possibility. I have added Flomax 0.8 mg daily. 01/21/2018-final results for the urine culture were obtained. Proteus mirabilis that is resistant to quinolone therapy. It is sensitive to cephalosporins. I have discontinued the levofloxacin and started Ancef 2 g every 6 initially and will check for response. We should be able to reduce the dose based on the patient's response. 01/22/2018-as above we will continue the Ancef. The patient should continue to improve. 01/23/2018-continue Ancef. Total antibiotic days should start with the initiation of Ancef because the bacteria was resistant to levofloxacin. (2) Diabetes mellitus type 2 in nonobese Is this a current diagnosis for this admission?: Yes Plan: January 19, 2018-patient's Accu-Cheks have been fairly reasonable. Continue current regimen. Despite his history of prostate cancer his diabetes is more likely a reason for the cystitis. 01/20/2018-still with occasional sugars greater than 150. May need to adjust his medications tomorrow. 01/21/2018-skin the glucose readings are variable but he had several Accu-Cheks over 200 this afternoon and evening. I will add 6 units of Lantus every morning and continue the sliding scale. 01/22/2018-still with variability. Continue to monitor but no changes today. 01/23/2018-still wide variations in glucose. Unsure of the etiology. Continue to monitor before making any changes. (3) Venous insufficiency of both lower extremities Is this a current diagnosis for this admission?: Yes Plan: By elevating the patient's feet the dusky discoloration began to clear. He does have 1+ edema. Because of the edema he is prone to easy bruising and possible infection. I did suggest that he elevate his feet when he is not eating. 01/22/2018-the patient does have a history of ascites. He was placed back on his Aldactone. Continue leg elevation. 01/23/2018-we will resume the patient's Aldactone. He may need additional diuresis. - Time Time Spent with patient: 15-24 minutes Medications reviewed and adjusted accordingly: Yes
[2018-01-24] MEDS: ATORVASTATIN CALCIUM 40 MG TABLET PO SCH (22:39)
[2018-01-25] MEDS: CEFUROXIME 500 MG TABLET PO SCH (05:39)
[2018-01-25] MEDS: GABAPENTIN 300 MG CAPSULE PO SCH ×2 (05:39→14:06)
[2018-01-25] MEDS: SPIRONOLACTONE 25 MG TABLET PO SCH (09:46)
[2018-01-25] MEDS: METFORMIN HCL 500 MG TABLET PO SCH (09:47)
[2018-01-25] MEDS: ASPIRIN 81 MG TABLET, ENT COATED PO SCH (09:47)
[2018-01-25] MEDS: INSULIN GLARGINE,HUM.REC.ANLOG 300 UNIT/3 ML INSULN.PEN SUBCUT SCH (09:47)
[2018-01-25] MEDS: OXYBUTYNIN CHLORIDE 5 MG TABLET PO SCH (09:47)
[2018-01-25] MEDS: LISINOPRIL 5 MG TABLET PO SCH (09:48)
[2018-01-25] MEDS: FINASTERIDE 5 MG TABLET PO SCH (09:48)
[2018-01-25] MEDS: ENOXAPARIN SODIUM INJ 40 MG/0.4 ML DISP.SYRIN SUBCUT SCH (09:48)
--- NOTE | 2018-01-25 15:51 | PDOC DISCHARGE SUMMARY ---
General - Admit/Disc Date/PCP Admission Date/Primary Care Provider: 01/18/18 05:41 CONSTANCE NAIDU MD Discharge Date: 01/25/18 - seen on rounds this afternoon - Discharge Diagnosis (1) Acute cystitis with positive culture Is this a current diagnosis for this admission?: Yes (2) COPD (chronic obstructive pulmonary disease) Is this a current diagnosis for this admission?: Yes (3) Diabetes mellitus type 2 in nonobese Is this a current diagnosis for this admission?: Yes - Additional Information Resuscitation Status: Full Code Discharge Diet: As Tolerated Discharge Activity: Activity As Tolerated, Slowly Increase Activity Prescriptions: Cefuroxime Axetil [Ceftin 500 mg Tablet] 500 mg PO Q12A 4 Days #8 tablet Home Medications: Aspirin [Adult Aspirin] 81 mg PO DAILY 01/20/18 Atorvastatin Calcium [Lipitor 40 mg Tablet] 40 mg PO QHS 01/20/18 Finasteride [Proscar] 5 mg PO DAILY 01/20/18 Gabapentin [Neurontin 300 mg Capsule] 300 mg PO Q8 01/20/18 Insulin Glargine,Hum.rec.anlog [Lantus Insulin 100 Unit/1 ml 10 ml] 16 unit SUBCUT NOON 01/20/18 Lisinopril [Prinivil 2.5 mg Tablet] 2.5 mg PO DAILY 01/20/18 Metformin HCl 500 mg PO BID 01/20/18 Omeprazole 20 mg PO DAILY 01/20/18 Oxybutynin Chloride [Ditropan 5 mg Tablet] 5 mg PO DAILY 01/20/18 Sennosides/Docusate 8.6-50 mg [Senna Plus Tablet] 1 tab PO QHS 01/20/18 Spironolactone [Aldactone 25 mg Tablet] 25 mg PO DAILY 01/20/18 Tamsulosin HCl [Flomax] 0.4 mg PO DAILY 01/20/18 Cefuroxime Axetil [Ceftin 500 mg Tablet] 500 mg PO Q12A 4 Days #8 tablet History of Present Illness History of Present Illness: TAMMY RICHARDS is a 62 year old male admitted for sepsis 2/2 UTI. please see initial H&P for full A&P Hospital Course Hospital Course: patient initially started on IV levaquin but he had proteus which was resistant so switched to rocephin and later transitioned to PO ceftin. his augustin was discontinued and he voided. he walked on the floor with walker and did fine. i spoke to this daughter- she's here to take him home. she's concerned about him being non compliant at home- doesn't want to follow up with PCP - i have counseled him on the importance of follow ups. states he will go. Physical Exam Vital Signs: Temp Pulse Resp BP Pulse Ox 97.6 F 102 H 14 119/68 98 01/25/18 12:46 01/25/18 14:00 01/25/18 12:46 01/25/18 12:46 01/25/18 12:46 Intake & Output 01/24/18 01/25/18 01/26/18 06:59 06:59 06:59 Intake Total 1672 Output Total 1350 Balance 322 Weight 169 lb 5.04 oz 169 lb 5.04 oz 169 lb 5.04 oz Results Laboratory Results: 01/21/18 04:17 01/21/18 04:17 Impressions: Chest X-Ray 01/18/18 02:09 IMPRESSION: COPD. Lungs are clear copyright 2011 [employer]- All Rights Reserved Qualifiers - * PATIENT BEING DISCHARGED WITH ANY OF THE FOLLOWING DIAGNOSIS: No Plan Time Spent: Less than 30 Minutes
[2018-01-25 15:59] VITALS: BP 119/74
== END 2018-01-25 16:15 | disposition home health service (06) | DRG 872 ==
LOC: ER 23:42 → EH 01-18 05:41 → OBSVTOIN 01-18 05:41 → 5 01-18 07:00
PROVIDERS: ADMIT Internal Medicine; ATTEND Internal Medicine
DX: A41.9 Sepsis, unspecified organism (principal); N30.00 Acute cystitis without hematuria; I50.22 Chronic systolic (congestive) heart failure; I87.2 Venous insufficiency (chronic) (peripheral); B96.4 Proteus (mirabilis) (morganii) as the cause of diseases classified elsewhere; J44.9 Chronic obstructive pulmonary disease, unspecified; E11.8 Type 2 diabetes mellitus with unspecified complications; I25.10 Atherosclerotic heart disease of native coronary artery without angina pectoris; K21.9 Gastro-esophageal reflux disease without esophagitis; F17.210 Nicotine dependence, cigarettes, uncomplicated; Z79.2 Long term (current) use of antibiotics; Z79.82 Long term (current) use of aspirin; Z79.4 Long term (current) use of insulin; Z79.51 Long term (current) use of inhaled steroids; Z79.899 Other long term (current) drug therapy
CPT/HCPCS: 36415; 71046; 80048; 80307; 81001; 82962; 83605; 83735; 84153; 85025; 85027; 87040; 87086; 87088; 87186; 94640; 96361; 96365; 99285; G8978-GP; G8979-GP; J0690; J0696; J1650; J1815; J1956; J2550; J3490; J7030; J7620